=== PATIENT | female | born 1950 | race Caucasian/White ===

== ENCOUNTER 2019-11-07 12:27 | Outpatient (CLI) | payer MEDICARE, OTHER, SELFPAY ==
[2019-11-07 13:55] LABS: Carcinoembryonic Antigen 2.4 ng/mL (0.0-3.0)
== END 2019-11-07 12:28 | disposition home or self-care (01) ==
PROVIDERS: PCP Family Medicine Sports Medicine; Visit Provider Surgery
DX: C18.9 Malignant neoplasm of colon, unspecified (principal)
CPT/HCPCS: 36415; 82378

== ENCOUNTER 2019-11-12 12:52 | Outpatient (CLI) | payer MEDICARE, OTHER, SELFPAY ==
--- NOTE | ~2019-11-12 | MM_ITS ---
EXAMINATION: MM diagnostic kaylen BI w abdifatah HISTORY: Generalized right breast pain TECHNIQUE: ML, MLO and cc 3-D tomosynthesis images of both breasts were performed and synthetic 2-D i mages were generated. CAD analysis was submitted and interpreted. COMPARISON: 03/07/2013ilateral digital screening mammogram BREAST PARENCHYMAL COMPOSITION: The breasts are almost entirely fatty. FINDINGS: No suspicious mass or architectural distortion, malignant calcification, skin thickening or retraction or significant new or developing density is detected. IMPRESSION: 1. No mammographic evidence of malignancy 2. Routine mammographic screening is recommended. BI-RADS Category 1: Negative Reviewed, dictated and finalized at location A.
== END 2019-11-12 12:53 | disposition home or self-care (01) ==
LOC: ANHIMG 12:58
PROVIDERS: PCP Family Medicine Sports Medicine; Visit Provider Family Medicine Sports Medicine
DX: N64.4 Mastodynia (principal)
CPT/HCPCS: 77062; 77066; G0279

== ENCOUNTER 2019-12-17 00:02 | Outpatient (CLI) | payer MEDICARE, OTHER, SELFPAY ==
[2019-12-17 17:13] LABS: SARS-CoV-2 RNA PCR Negative
== END 2019-12-17 00:03 | disposition home or self-care (01) ==
LOC: ANHCOVIDDT 00:02
PROVIDERS: PCP Family Medicine Sports Medicine; Visit Provider Internal Medicine Gastroenterology
DX: Z01.812 Encounter for preprocedural laboratory examination (principal); Z11.59 Encounter for screening for other viral diseases
CPT/HCPCS: 87635; C9803; U0003

== ENCOUNTER 2019-12-19 01:47 | Day surgery (SDC) | payer MEDICARE, OTHER, SELFPAY ==
[2019-12-11 13:50] VITALS: BMI 35.5
[2019-12-19 06:30] VITALS: BP 133/90; PULSE 53; RESP 18; TEMP 36.3; O2SAT 100
[2019-12-19] MEDS: LACTATED RINGERS 1,000 ML 150 ML IV CONT (06:57)
--- NOTE | 2019-12-19 07:27 | WPDANESEPPF ---
Anes - Initial Pre Proc Eval Procedure: Operation Date: 12/19/19 08:00 Proposed Procedures p Screening Colonoscopy - Ace Carmichael MD Date/Time: 12/19/19 07:27 Surgeon: Ace Carmichael MD Pre Op Diagnosis: history of colon cancer Patient Data Age: 69 Gender: F Height: 1.6 m Weight: 94.1 kg Last Vital Signs Temp 36.3 C L 12/19/19 06:30 Pulse 53 L 12/19/19 06:30 Resp 18 12/19/19 06:30 BP 133/90 12/19/19 06:30 Pulse Ox 100 12/19/19 06:30 Allergies Allergy/AdvReac Type Severity Reaction Status Date / Time fenofibrate Allergy Intermediate ITCHING, Verified 12/19/19 06:40 HIVES ciprofloxacin Allergy Unknown Unknown Verified 12/19/19 06:40 Penicillins Allergy Unknown Unknown Verified 12/19/19 06:40 Quinolones Allergy Unknown Unknown Verified 12/19/19 06:40 ibuprofen AdvReac Unknown Nausea and Verified 12/19/19 06:40 Vomiting Home Medications Medication Instructions Recorded Confirmed Type clopidogrel [Plavix] 75 mg PO QPM 07/10/19 12/19/19 History ezetimibe 10 mg PO QPM 07/10/19 12/19/19 History simvastatin 20 mg PO QPM 07/10/19 12/19/19 History aspirin 81 mg PO QPM 07/13/19 12/19/19 History cyanocobalamin (vitamin B-12) 1,000 mcg PO DAILY 07/13/19 12/19/19 History [Vitamin B-12] diphenoxylate-atropine [Lomotil] 1 tablet PO PRN PRN 07/13/19 07/13/19 History furosemide [Lasix] 20 mg PO DAILY 07/13/19 12/19/19 History metoprolol tartrate 12.5 mg PO QPM 07/13/19 12/19/19 History omeprazole 40 mg PO DAILY 07/13/19 12/19/19 History valsartan 40 mg PO QPM 07/13/19 12/19/19 History magnesium oxide 400 mg PO DAILY 7 Days #7 cap 07/15/19 12/19/19 Rx ondansetron HCl 4 mg PO Q8H PRN #20 tablet 07/15/19 Rx Patient hx anesthesia problems: none Family hx anesthesia problems: none [facility] Past Medical History Medical History (Updated 12/18/19 @ 09:04 by Daniel Ng DO) CHF (congestive heart failure) Colon cancer Coronary artery disease CVA (cerebral vascular accident) History of colon cancer History of heart attack 1999 Hyperlipidemia Hypertension TIA (transient ischemic attack) Surgical History Surgical History (Updated 12/18/19 @ 09:04 by Daniel Ng DO) History of appendectomy History of cholecystectomy History of colon resection History of coronary artery stent placement History of hysterectomy Family History Family History (Updated 07/10/19 @ 21:57 by Amy Richey RN) Father Family history of heart disease in male family member before age 55 Cancer, bladder, neck Social History Social History Smoking status: Former smoker Second hand tobacco smoke exposure: No Smoking end date: 06/27/12 Alcohol intake: never Substance use: never Gender identity (if verbalized by the patient): Female Sexual Orientation (if Verbalized by the Patient): Straight or Heterosexual Spiritual care concerns: No Agree to blood products: Yes Anes - Eval Final PreProcedure Day of Procedure 12/19/19 07:27 Patient weight: obese Heart: regular rate and rhythm Lungs: clear to auscultation and normal air movement Airway: Mallampati scale class III Neurological: alert and oriented Last oral intake: >/= 8 hours ASA classification: IV Emergent: no Anesthetic plan: proceed Anesthesia type and monitoring: general GIVS and standard monitoring Informed Consent: The patient's anesthetic plan and its attendant risks and benefits were discussed with the patient/family/POA. Questions were solicited and answers provided to the satisfaction of the patient/family/POA.
--- NOTE | 2019-12-19 08:08 | WPDGICN ---
Assessment and Plan Assessment and plan (1) History of colon cancer: Code(s): Z85.038 - Personal history of other malignant neoplasm of large intestine Status: Acute Assessment and Plan: Patient had a history of carcinoma of the ascending colon requiring right hemicolectomy in August of 2018. She had no lymph nodes noted in the resected specimen. Plan is for surveillance colonoscopy at this time. High-fiber diet advised. Further recommendations after endoscopy. Frequent monitoring of CEA on an annual basis is advised. (2) Diarrhea: Code(s): R19.7 - Diarrhea, unspecified Status: Acute Assessment and Plan: Patient has significant loose stools and diarrhea after resection of portion of her colon. Plan is to continue Metamucil. Lomotil can be used intermittently to control bowel habits. Further recommendations may be given after colonoscopy. GI Consult Note Consult date/time: 12/19/19 08:08 HPI: Hui Dominguez is a 69 year old female Seen in evaluation at the request of Dr. Vera. patient has a history of carcinoma of the colon. This was identified 1 year ago in August of 2018. Patient subsequently had surgery to with right hemicolectomy. Since that time she has had difficulties with diarrhea. She states the initial resection of the colon mass there were no lymph nodes noted in the resected specimen she denies any bleeding but her stools remain loose and has significant urgency after eating. She denies any bleeding. She denies any weight loss. She has tried Lomotil. She has had modest improvement on adding Metamucil supplementation. Her family history is noncontributory. Review of Systems Review of Systems: All systems reviewed & are unremarkable except as noted in HPI and below PMFSH Past Medical History Medical History CHF (congestive heart failure) Colon cancer Coronary artery disease CVA (cerebral vascular accident) History of colon cancer History of heart attack 1999 Hyperlipidemia Hypertension TIA (transient ischemic attack) Surgical History Surgical History History of appendectomy History of cholecystectomy History of colon resection History of coronary artery stent placement History of hysterectomy Family History Family History Father Family history of heart disease in male family member before age 55 Cancer, bladder, neck Social History Social History Smoking status: Former smoker Second hand tobacco smoke exposure: No Smoking end date: 06/27/12 Alcohol intake: never Substance use: never Gender identity (if verbalized by the patient): Female Sexual Orientation (if Verbalized by the Patient): Straight or Heterosexual Spiritual care concerns: No Agree to blood products: Yes Meds Home Medications and Allergies Home Medications Medication Instructions Recorded Confirmed Type clopidogrel [Plavix] 75 mg PO QPM 07/10/19 12/19/19 History ezetimibe 10 mg PO QPM 07/10/19 12/19/19 History simvastatin 20 mg PO QPM 07/10/19 12/19/19 History aspirin 81 mg PO QPM 07/13/19 12/19/19 History cyanocobalamin (vitamin B-12) 1,000 mcg PO DAILY 07/13/19 12/19/19 History [Vitamin B-12] diphenoxylate-atropine [Lomotil] 1 tablet PO PRN PRN 07/13/19 07/13/19 History furosemide [Lasix] 20 mg PO DAILY 07/13/19 12/19/19 History metoprolol tartrate 12.5 mg PO QPM 07/13/19 12/19/19 History omeprazole 40 mg PO DAILY 07/13/19 12/19/19 History valsartan 40 mg PO QPM 07/13/19 12/19/19 History magnesium oxide 400 mg PO DAILY 7 Days #7 cap 07/15/19 12/19/19 Rx ondansetron HCl 4 mg PO Q8H PRN #20 tablet 07/15/19 Rx Allergies Allergy/AdvReac Type Severity Reaction Status Date / Time fenofibrate Allergy Intermediate ITCHING, Verified 12/19/19 06:40 H
--- NOTE | 2019-12-19 08:16 | SUR.OPER ---
SPOUSE, JUAN DIEGO NOTIFIED OF PTS STATUS.
[2019-12-19 08:37] VITALS: BP 82/43; PULSE 47; RESP 16; O2SAT 96
[2019-12-19 08:41] VITALS: BP 85/47; PULSE 51; RESP 16; O2SAT 96
[2019-12-19 08:47] VITALS: BP 105/56; PULSE 54; RESP 16; O2SAT 100
[2019-12-19 08:57] VITALS: BP 133/68; PULSE 52; RESP 16; O2SAT 100
== END 2019-12-19 09:21 | disposition home or self-care (01) ==
PROVIDERS: PCP Family Medicine Sports Medicine; Visit Provider Internal Medicine Gastroenterology
PROC: 0DJD8ZZ Inspection of Lower Intestinal Tract, Via Natural or Artificial Opening Endoscopic (ICD-10-PCS; CPT 45378; principal; 2019-12-19 08:00)
DX: R19.7 Diarrhea, unspecified (principal); D12.5 Benign neoplasm of sigmoid colon; K57.30 Diverticulosis of large intestine without perforation or abscess without bleeding; K64.8 Other hemorrhoids; Z85.038 Personal history of other malignant neoplasm of large intestine; Z90.49 Acquired absence of other specified parts of digestive tract; Z98.0 Intestinal bypass and anastomosis status; I11.0 Hypertensive heart disease with heart failure; I50.9 Heart failure, unspecified; E78.5 Hyperlipidemia, unspecified; I25.2 Old myocardial infarction; I25.10 Atherosclerotic heart disease of native coronary artery without angina pectoris; Z86.73 Personal history of transient ischemic attack (TIA), and cerebral infarction without residual deficits; Z87.891 Personal history of nicotine dependence; Z79.02 Long term (current) use of antithrombotics/antiplatelets; Z79.82 Long term (current) use of aspirin; E66.9 Obesity, unspecified; Z68.36 Body mass index [BMI] 36.0-36.9, adult
CPT/HCPCS: 45385; 88305; J2704; J7120

== ENCOUNTER 2020-01-02 10:14 | Outpatient (CLI) | payer MEDICARE, OTHER, SELFPAY ==
[2020-01-02 10:58] LABS: Basophils Absolute Auto 0.1 K/mm3 (0.0-0.1); Eosinophils Absolute Auto 0.1 K/mm3 (0-0.3); Hemoglobin 12.8 g/dL (12.0-15.0); Immature Granulocyte Absolute 0.02 K/mm3 (0.00-0.031); Immature Granulocyte Percent A 0.3 % (0-0.5); Lymphocytes Absolute Auto 1.81 K/mm3 (0.9-3.2); Mean Corpuscular HGB Conc 32.8 g/dl (32-36); Mean Corpuscular Hemoglobin 31.1 pg (26-34); Mean Corpuscular Volume 94.7 fl (80-100); Mean Platelet Volume 9.6 fl (7.4-10.4); Monocytes Absolute Auto 0.5 K/mm3 (0.1-0.6); Monocytes Percent Auto 7.8 % (2.6-8.5); Neutrophils Absolute Auto 4.4 K/mm3 (1.3-6.7); Neutrophils Percent Auto 62.9 % (45.5-73.1); Platelet Count Result 220 k/mm3 (150-375); Red Blood Count 4.12 M/mm3 (4.2-5.4); Red Cell Distribution Width 12.5 % (11.5-14.5)
[2020-01-02 11:13] LABS: Alanine Aminotransferase 21 U/L (4-35); Albumin Level 4.3 g/dL (3.5-5.1); Alkaline Phosphatase 65 U/L (38-126); Aspartate Amino Transferase 30 U/L (14-36); Bilirubin,Total 0.5 mg/dL (0.2-1.3); Blood Urea Nitrogen 34 mg/dL (7-17); Carbon Dioxide 25 mmol/L (22-30); Chloride 105 mmol/L (98-107); Cholesterol 115 mg/dL (0-200); Estimated Glomerular Filt Rate 49; Glucose 93 mg/dL (65-105); HDL Direct 40 mg/dL; Magnesium 1.7 mg/dL (1.6-2.3); Potassium 3.9 mmol/L (3.4-5.0); Sodium 138 mmol/L (137-145); Triglycerides 156 mg/dL (<150)
[2020-01-02 11:18] LABS: LDL Cholesterol Direct 40 mg/dL
[2020-01-02 11:34] LABS: Creatine Kinase 96 U/L (30-135)
== END 2020-01-02 10:15 | disposition home or self-care (01) ==
PROVIDERS: PCP Family Medicine Sports Medicine; Visit Provider Internal Medicine Cardiovascular Disease
DX: I25.10 Atherosclerotic heart disease of native coronary artery without angina pectoris (principal)
CPT/HCPCS: 36415; 80053; 80061; 82550; 83735; 85025

== ENCOUNTER 2020-04-10 09:37 | Outpatient (CLI) | payer MEDICARE, OTHER, SELFPAY ==
[2020-04-10 10:56] LABS: Alanine Aminotransferase 35 U/L (4-35); Cholesterol 112 mg/dL (0-200); Creatine Kinase 59 U/L (30-135); HDL Direct 35 mg/dL; Triglycerides 141 mg/dL (<150)
[2020-04-10 11:07] LABS: LDL Cholesterol Direct 44 mg/dL
== END 2020-04-10 09:38 | disposition home or self-care (01) ==
LOC: ANHLAB 09:42
PROVIDERS: PCP Family Medicine Sports Medicine; Visit Provider Internal Medicine Cardiovascular Disease
DX: E78.5 Hyperlipidemia, unspecified (principal)
CPT/HCPCS: 36415; 80061; 82550; 84460

== ENCOUNTER 2020-05-02 07:54 | Outpatient (CLI) | payer MEDICARE, OTHER, SELFPAY ==
--- NOTE | ~2020-05-02 | CT_ITS ---
EXAMINATION: CT abdomen pelvis wo/w con EXAM DATE: 05/02/2020 08:59 INDICATION: Gross hematuria TECHNIQUE: Spiral CT of the abdomen and pelvis was performed without contrast. The patient was then injected with small bolus intravenous Omnipaque 350, followed by delay of approximately 10 minutes to allow collecting system to opacify. A post contrast scan abdomen and pelvis was performed during inj ection of remaining contrast. A total of 130 cc intravenous contrast was administered. The dose-nena th product (DLP) for this examination was 2341.91 mGy-cm. The exposure was tailored according to pat ient size (auto mA exposure control), and iterative reconstruction (ASIR) was used as additional dose reduction technique. Comparison is made to prior examination from 07/10/2019. FINDINGS: There is no hydronephrosis or nephrolithiasis. There is a left renal peripelvic cyst in th e midpole of the kidney measuring 4 cm in size. Other smaller renal cysts bilaterally The kidneys en mat symmetrically. There are no suspicious renal lesions. The calyces and opacified portions of u reters are unremarkable, without filling defects or focal suspicious strictures. The bladder is unre markable. The uterus is not identified and has likely been surgically resected. The liver, spleen, adrenal glands and pancreas are unremarkable. There are cholecystectomy clips. T here is no retroperitoneal or pelvic lymphadenopathy. There is mild to moderate scattered arteriosc lerotic disease. There is supraumbilical abdominal wall dehiscence with small bowel bulging inside. Status post cecal resection with intact anastomosis. Small region of mesenteric or omental fat necros is adjacent to this. There is mild to moderate scattered colonic diverticulosis. There is no adjacen t inflammatory change to suggest diverticulitis. The stomach and small bowel are unremarkable. There is expected amount of colonic stool. No free intraperitoneal gas. The heart is normal in size. There are no pericardial or pleural effusions. The lung bases are unremarkable. There are no osteob lastic or osteolytic lesions identified. IMPRESSION: 1. No suspicious genitourinary findings. 2. Supraumbilical abdominal wall dehiscence. 3. Cecal resection, cholecystectomy, hysterectomy. 4. Colonic diverticulosis. Reviewed, dictated and finalized at location G. ANIC
--- NOTE | ~2020-05-02 | XR_ITS ---
EXAMINATION: XR abdomen/kub 1V EXAM DATE: 05/02/2020 08:18 INDICATION: Gross hematuria . TECHNIQUE: Frontal projection(s) of the abdomen for interpretation. Correlation is made to CT urogram same date. FINDINGS: There is expected amount of colonic stool and gas. No small bowel dilation, nonobstructiv e bowel gas pattern. There are no suspicious calcifications identified. There is no organomegaly suspected. The bones are unremarkable. IMPRESSION: Unremarkable abdomen x-ray exam. Reviewed, dictated and finalized at location G. [employer]
[2020-05-02 08:39] LABS: Estimated Glomerular Filt Rate 30
== END 2020-05-02 07:55 | disposition home or self-care (01) ==
PROVIDERS: PCP Family Medicine Sports Medicine; Visit Provider Nurse Practitioner Adult Health
DX: R31.0 Gross hematuria (principal); T81.30XA Disruption of wound, unspecified, initial encounter; Z90.710 Acquired absence of both cervix and uterus; K91.86 Retained cholelithiasis following cholecystectomy; K57.30 Diverticulosis of large intestine without perforation or abscess without bleeding
CPT/HCPCS: 74018; 74178; Q9967

== ENCOUNTER 2020-05-14 09:16 | Outpatient (CLI) | payer MEDICARE, OTHER, SELFPAY ==
[2020-05-14 10:25] LABS: Carcinoembryonic Antigen 2.5 ng/mL (0.0-3.0)
== END 2020-05-14 09:17 | disposition home or self-care (01) ==
PROVIDERS: PCP Family Medicine Sports Medicine; Visit Provider Surgery
DX: Z85.038 Personal history of other malignant neoplasm of large intestine (principal)
CPT/HCPCS: 36415; 82378

== ENCOUNTER 2020-12-01 08:57 | Outpatient (CLI) | payer MEDICARE, OTHER, SELFPAY ==
[2020-12-01 11:22] LABS: Carcinoembryonic Antigen 2.1 ng/mL (0.0-3.0)
== END 2020-12-01 08:58 | disposition home or self-care (01) ==
PROVIDERS: PCP Family Medicine Sports Medicine; Visit Provider Surgery
DX: Z85.038 Personal history of other malignant neoplasm of large intestine (principal)
CPT/HCPCS: 36415; 82378

== ENCOUNTER 2020-12-30 07:35 | Outpatient (CLI) | payer MEDICARE, OTHER, SELFPAY ==
[2020-12-30 08:07] LABS: Basophils Absolute Auto 0.1 K/mm3 (0.0-0.1); Eosinophils Absolute Auto 0.2 K/mm3 (0-0.3); Eosinophils Percent Auto 2.9 % (0-4.4); Hematocrit 37.3 % (37.0-47.0); Hemoglobin 11.4 g/dL (12.0-15.0); Immature Granulocyte Absolute 0.01 K/mm3 (0.00-0.031); Immature Granulocyte Percent A 0.2 % (0-0.5); Lymphocytes Absolute Auto 1.66 K/mm3 (0.9-3.2); Lymphocytes Percent Auto 26.8 % (18.3-44.2); Mean Corpuscular HGB Conc 30.6 g/dl (32-36); Mean Corpuscular Hemoglobin 28.5 pg (26-34); Mean Corpuscular Volume 93.3 fl (80-100); Mean Platelet Volume 9.8 fl (7.4-10.4); Monocytes Absolute Auto 0.6 K/mm3 (0.1-0.6); Neutrophils Absolute Auto 3.7 K/mm3 (1.3-6.7); Neutrophils Percent Auto 59.1 % (45.5-73.1); Platelet Count Result 217 k/mm3 (150-375); Red Cell Distribution Width 13.1 % (11.5-14.5); White Blood Count 6.2 K/mm3 (4.5-10.0)
[2020-12-30 08:18] LABS: Alanine Aminotransferase 17 U/L (4-35); Albumin Level 4.2 g/dL (3.5-5.1); Alkaline Phosphatase 69 U/L (38-126); Anion Gap 10 mmol/L (8-16); Aspartate Amino Transferase 31 U/L (14-36); Bilirubin,Total 0.3 mg/dL (0.2-1.3); Blood Urea Nitrogen 31 mg/dL (7-17); Calcium 10.3 mg/dL (8.4-10.2); Carbon Dioxide 25 mmol/L (22-30); Chloride 108 mmol/L (98-107); Cholesterol 128 mg/dL (0-200); Creatine Kinase 105 U/L (30-135); Estimated Glomerular Filt Rate 40; Glucose 93 mg/dL (65-105); HDL Direct 42 mg/dL; Potassium 4.4 mmol/L (3.4-5.0); Sodium 143 mmol/L (137-145); Triglycerides 167 mg/dL (<150)
[2020-12-30 08:29] LABS: LDL Cholesterol Direct 42 mg/dL
[2020-12-30 09:29] LABS: Folic Acid > 20.0 ng/mL (2.76->20)
== END 2020-12-30 07:36 | disposition home or self-care (01) ==
PROVIDERS: PCP Family Medicine Sports Medicine; Visit Provider Internal Medicine Cardiovascular Disease
DX: E78.5 Hyperlipidemia, unspecified (principal); I10 Essential (primary) hypertension
CPT/HCPCS: 36415; 80053; 80061; 82550; 82607; 82746; 84443; 85025

== ENCOUNTER 2020-12-31 12:42 | Outpatient (CLI) | payer MEDICARE, OTHER, SELFPAY ==
--- NOTE | ~2020-12-31 | MM_ITS ---
EXAMINATION: MM screening kaylen BI w abdifatah HISTORY: Screening mammogram, family history of breast cancer in her sister. TECHNIQUE: Craniocaudal and mediolateral oblique 3-D tomosynthesis images were obtained and synthetic 2-D images were generated. CAD analysis was submitted and interpreted. COMPARISON: 11/12/2019, 03/07/2013, 02/04/2012 BREAST PARENCHYMAL COMPOSITION: The breasts are almost entirely fatty. FINDINGS: There is no evidence of suspicious mass, calcification, or architectural distortion to sugg est malignancy in either breast. There has been no suspicious interval change. IMPRESSION: 1. No mammographic evidence of malignancy. 2. Recommend routine screening mammography in one year. BI-RADS Category 1: Negative Reviewed, dictated and finalized at location A.
== END 2020-12-31 12:43 | disposition home or self-care (01) ==
LOC: ANHIMG 12:44
PROVIDERS: PCP Family Medicine Sports Medicine; Visit Provider Family Medicine Sports Medicine
DX: Z12.31 Encounter for screening mammogram for malignant neoplasm of breast (principal)
CPT/HCPCS: 77063; 77067

== ENCOUNTER 2021-01-07 14:38 | Outpatient (CLI) | payer MEDICARE, OTHER, SELFPAY ==
[2021-01-07 18:30] LABS: Iron 83 ug/dL (37-170)
[2021-01-07 18:41] LABS: Percent Iron Saturation 20 % (20-50)
[2021-01-07 19:28] LABS: Hemoglobin A1C 5.1 % (<5.7)
== END 2021-01-07 14:39 | disposition home or self-care (01) ==
PROVIDERS: PCP Family Medicine Sports Medicine
DX: R00.1 Bradycardia, unspecified (principal); R00.2 Palpitations; R06.02 Shortness of breath
CPT/HCPCS: 36415; 82728; 83036; 83540; 83550

== ENCOUNTER 2021-02-04 13:02 | Outpatient (CLI) | payer MEDICARE, OTHER, SELFPAY ==
--- NOTE | ~2021-02-04 | CT_ITS ---
EXAMINATION: CT abdomen pelvis wo/w con DATE: 02/04/2021 13:52 INDICATION: Bilateral renal cysts TECHNIQUE: Computed tomography (CT) of the abdomen and pelvis was performed without intravenous contr ast. Automated exposure control and iterative reconstruction technique were employed. Exam dose: 237 3.95 mGy-cm total exam DLP. COMPARISON: 05/02/2020 FINDINGS: Minimal discoid atelectasis is scoliosis and. Normal heart size. Coronary artery calcification. No pericardial or pleural effusion. Small sliding hiatal hernia. Status post cholecystectomy. The liver, spleen and pancreas are unremarkable. Normal morphology of the adrenal glands. Multiple bilateral renal cysts, the largest on the left measuring up to 4.7 cm, the largest on the ri ght 2.1 cm. No urinary tract calculus or hydroureteronephrosis. Abdominal and iliac arterial calcifications without evidence of aneurysm. No intraperitoneal or retro peritoneal or pelvic mass lesion or adenopathy or ascites. The urinary bladder is unremarkable. Diverticulosis of the sigmoid and descending colon; no CT evidence of diverticulitis. There is resection of the right colon. No bowel obstruction or intraperitoneal free air. Status post hysterectomy. There is a wide large supraumbilical ventral abdominal wall hernia containing nonstrangulated nonobst ructed small bowel and fat. Grade 1 anterolisthesis L4-5 due to degenerative change at the apophyseal joints. No suspicious osteolytic or osteoblastic lesions are noted. IMPRESSION: Status post cholecystectomy Status post hysterectomy Small sliding hiatal hernia Diverticulosis of the left colon; no CT evidence of diverticulitis Status post right colon resection Wide large supraumbilical ventral abdominal wall hernia containing nonstrangulated nonobstructed smal l bowel Reviewed, dictated and finalized at Location A. Reviewed, dictated and finalized at location A. IMPRESSION: Status post cholecystectomy Status post hysterectomy Small sliding hiatal hernia Diverticulosis of the left colon; no CT evidence of diverticulitis Status post right colon resection Wide large supraumbilical ventral abdominal wall hernia containing nonstrangula daniel nonobstructed small bowel
--- NOTE | ~2021-02-04 | XR_ITS ---
EXAMINATION: XR abdomen/kub 1V INDICATION: Cysts of the kidneys TECHNIQUE: Supine views of the abdomen were obtained on 2 radiographs. COMPARISON: 05/02/[address] from today FINDINGS: No urolithiasis is identified. A moderate volume of colonic stool is present. Cholecystecto my clips are present in the right upper quadrant. There is calcified atherosclerosis. Changes of righ t hemicolectomy are noted. IMPRESSION: 1. No urolithiasis identified. Reviewed, dictated and finalized at location B.
[2021-02-04 13:41] LABS: Estimated Glomerular Filt Rate 44
== END 2021-02-04 13:03 | disposition home or self-care (01) ==
PROVIDERS: PCP Family Medicine Sports Medicine; Visit Provider Nurse Practitioner Adult Health
DX: N28.1 Cyst of kidney, acquired (principal); K44.9 Diaphragmatic hernia without obstruction or gangrene; K57.30 Diverticulosis of large intestine without perforation or abscess without bleeding; K43.9 Ventral hernia without obstruction or gangrene
CPT/HCPCS: 74018; 74178; Q9967

== ENCOUNTER 2021-02-17 13:42 | Outpatient (CLI) | payer MEDICARE, OTHER, SELFPAY ==
[2021-02-17 14:52] LABS: Uric Acid 10.3 mg/dL (2.5-7.5)
== END 2021-02-17 13:43 | disposition home or self-care (01) ==
PROVIDERS: PCP Family Medicine Sports Medicine; Visit Provider Podiatrist Foot & Ankle Surgery
DX: M1A.0721 Idiopathic chronic gout, left ankle and foot, with tophus (tophi) (principal)
CPT/HCPCS: 36415; 84550

== ENCOUNTER 2021-05-07 11:18 | Outpatient (CLI) | payer MEDICARE, OTHER, SELFPAY ==
[2021-05-07 12:35] LABS: Uric Acid 5.7 mg/dL (2.5-7.5)
== END 2021-05-07 11:19 | disposition home or self-care (01) ==
LOC: ANHLAB 11:22
PROVIDERS: PCP Family Medicine Sports Medicine; Visit Provider Podiatrist Foot & Ankle Surgery
DX: M10.072 Idiopathic gout, left ankle and foot (principal)
CPT/HCPCS: 36415; 84550

== ENCOUNTER 2021-10-16 08:21 | Outpatient (CLI) | payer MEDICARE, OTHER, SELFPAY ==
[2021-10-16 09:00] LABS: Hematocrit 36.5 % (37.0-47.0); Hemoglobin 11.3 g/dL (12.0-15.0); Mean Corpuscular Hemoglobin 30.5 pg (26-34); Mean Corpuscular Volume 98.4 fl (80-100); Mean Platelet Volume 9.9 fl (7.4-10.4); Platelet Count Result 245 k/mm3 (150-375); Red Blood Count 3.71 M/mm3 (4.2-5.4); White Blood Count 7.1 K/mm3 (4.5-10.0)
[2021-10-16 09:04] LABS: Add Urine Microscopic? YES; Appearance Urine Cloudy (Clear); Bacteria Urine Trace /hpf; Bilirubin Urine Negative (Negative); Blood Urine Negative (Negative); Color Urine Yellow (Yellow); Glucose Urine UA Negative (Negative); Ketones Urine Negative (Negative); Leukocyte Esterase Ur 2+ LEU/UL (NEGATIVE); Mucus Urine Rare /lpf; Nitrate Urine Negative (Negative); Protein Urine Negative (Negative); RBC Urine 0-2 /hpf (0-2); Specific Grav Ur 1.011 (1.001-1.035); Squamous Epithelial Cell Urine Rare /hpf (Few); Urobilinogen Urine Negative mg/dL (<2.0); WBC Urine 31-50 /hpf (0-3)
[2021-10-16 09:09] LABS: Cholesterol 130 mg/dL (0-200); HDL Direct 35 mg/dL; Triglycerides 157 mg/dL (<150)
[2021-10-16 09:12] LABS: Alanine Aminotransferase 14 U/L (4-35); Albumin Level 4.1 g/dL (3.5-5.1); Alkaline Phosphatase 83 U/L (38-126); Anion Gap 9 mmol/L (8-16); Aspartate Amino Transferase 33 U/L (14-36); Bilirubin,Total 0.4 mg/dL (0.2-1.3); Blood Urea Nitrogen 36 mg/dL (7-17); Calcium 10.1 mg/dL (8.4-10.2); Carbon Dioxide 24 mmol/L (22-30); Chloride 107 mmol/L (98-107); Estimated Glomerular Filt Rate 32; Glucose 96 mg/dL (65-110); Potassium 4.3 mmol/L (3.4-5.0); Sodium 140 mmol/L (137-145)
[2021-10-16 09:21] LABS: LDL Cholesterol Direct 49 mg/dL
[2021-10-16 10:19] LABS: Folic Acid > 20.0 ng/mL (2.76->20); Vitamin B12 > 1000.0 pg/mL (239-931)
[2021-10-16 11:16] LABS: IFOB Positive Control Positive; Immunochemical Fecal Occult Bl Positive (N)
[2021-10-16 11:50] LABS: Toxigenic C. Diff POSITIVE (NEGATIVE)
== END 2021-10-16 08:22 | disposition home or self-care (01) ==
PROVIDERS: PCP Family Medicine Sports Medicine; Visit Provider Nurse Practitioner Family
DX: R19.7 Diarrhea, unspecified (principal); Z87.440 Personal history of urinary (tract) infections; E78.2 Mixed hyperlipidemia; R53.83 Other fatigue; I10 Essential (primary) hypertension
CPT/HCPCS: 36415; 80053; 80061; 81001; 82274; 82607; 82746; 84443; 85027; 87045; 87177; 87209; 87427; 87493

== ENCOUNTER 2021-10-28 09:20 | Outpatient (CLI) | payer MEDICARE, OTHER, SELFPAY ==
--- NOTE | ~2021-10-28 | CT_ITS ---
EXAMINATION: CT abdomen pelvis w con INDICATION: Diarrhea and abdominal pain TECHNIQUE: Computed tomographic images of the abdomen and pelvis were obtained after the administrati on of 100 cc of Omnipaque 350 intravenous contrast. The dose-length product (DLP) was 960.79 mGy-cm. Automated exposure control and iterative reconstruction technique were employed. COMPARISON: 02/04/2021 FINDINGS: There is mild emphysema of the visualized lung bases. The heart size is normal. The liver, spleen, and adrenal glands are normal. The gallbladder is surgically absent. There is mild enlargemen t of the common bile duct and central intrahepatic ducts which is likely due to post cholecystectomy state. There is a 1.8 cm cystic lesion in the body of the pancreas (previously 1.5 cm) which does not demonstrate communication with the main pancreatic duct. Cysts of the kidneys measure up to 4.6 cm o n the left. There is calcified atherosclerosis of the aorta and many of the other arteries. No pathol ogically enlarged abdominal or pelvic lymph nodes are identified. There is no free intraperitoneal ga s or evidence of bowel obstruction. Colonic diverticulosis is present without evidence of diverticuli tis. There appear to be changes of right hemicolectomy. There is a large midline ventral hernia conta ining nonobstructed small bowel and transverse colon. There is moderate lumbar spondylosis. IMPRESSION: 1. No CT correlate for the patient's symptoms. 2. Enlarging cystic lesion in the body of the pancreas measuring up to 1.8 cm. The differential diagn osis includes pseudocyst, intraductal papillary mucinous neoplasm (IPMN), mucinous cystic neoplasm (M CN), and the less common serous cystadenoma and neuroendocrine tumor. Correlate for history of pancre atitis. Follow-up pancreas protocol CT or MRI in six months is recommended. 3. Large ventral hernia containing nonobstructed large and small bowel. Reviewed, dictated and finalized at location A. IMPRESSION: 1. No CT correlate for the patient's symptoms. 2. Enlarging cystic lesion in the body of the pancreas measuring up to 1.8 cm. The differential diagnosis includes pseudocyst, intraductal papillary mucinous neoplasm (IPMN), mucinous cystic neoplasm (MCN), and the less common serous cys tadenoma and neuroendocrine tumor. Correlate for history of pancreatitis. Follo w-up pancreas protocol CT or MRI in six months is recommended. 3. Large ventral hernia containing nonobstructed large and small bowel.
== END 2021-10-28 09:21 | disposition home or self-care (01) ==
PROVIDERS: PCP Family Medicine Sports Medicine; Visit Provider Nurse Practitioner Family
DX: R19.7 Diarrhea, unspecified (principal); R10.9 Unspecified abdominal pain; R11.2 Nausea with vomiting, unspecified; K43.9 Ventral hernia without obstruction or gangrene
CPT/HCPCS: 74177; Q9967

== ENCOUNTER 2021-11-06 07:00 | Outpatient (CLI) | payer MEDICARE, OTHER, SELFPAY ==
[2021-11-06 10:35] LABS: Toxigenic C. Diff POSITIVE (NEGATIVE)
== END 2021-11-06 07:01 | disposition home or self-care (01) ==
LOC: ANHLAB 07:03
PROVIDERS: PCP Family Medicine Sports Medicine; Visit Provider Nurse Practitioner Family
DX: A49.8 Other bacterial infections of unspecified site (principal)
CPT/HCPCS: 87493

== ENCOUNTER 2021-12-15 15:26 | Outpatient (CLI) | payer MEDICARE, OTHER, SELFPAY ==
--- NOTE | ~2021-12-15 | CT_ITS ---
EXAMINATION: CT abdomen pelvis wo/w con DATE: 12/15/2021 16:38 INDICATION: Gross hematuria. TECHNIQUE: Computed tomography (CT) of the abdomen and pelvis was performed without and with intraven ous contrast using a total of 130 mL Omnipaque 300 intravenous contrast with a double-bolus technique for simultaneous opacification of the renal parenchyma and renal collecting system. Automated exposu re control and iterative reconstruction technique were employed. The dose-length product was 2008.25 mGy-cm. COMPARISON: CT abdomen and pelvis 10/28/2021 FINDINGS: The visualized portions of the lung bases demonstrate mild atelectasis. No pleural effusion. The hear t size is normal. No pericardial effusion. The liver is normal. There are changes of cholecystectomy. The spleen, pancreas, and adrenal glands are normal. There is cortical thinning of the kidneys. Ther e are cysts in the kidneys measuring up to 4.5 cm on the left. There is no urolithiasis. There are ar eas of papillary necrosis in the kidneys bilaterally. There are multiple filling defects in left kidn ey calyces measuring up to 8 mm. The distal left ureter is not well opacified, but is normal. There i s gas in the bladder wall and lumen. There is a ventral hernia containing nonobstructed transverse co kelli and small bowel. There is diverticulosis of the colon without evidence of diverticulitis. There a re changes of right hemicolectomy. There are no pathologically enlarged lymph nodes. There is no free intraperitoneal fluid. There is moderate thoracolumbar spondylosis. IMPRESSION: 1. Emphysematous cystitis. 2. Filling defects in calyces in left kidney measuring up to 8 mm, which may be sloughed papillae or blood clots. 3. 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 4. Ventral hernia containing nonobstructed transverse colon and small bowel. Reviewed, dictated and finalized at location A.
--- NOTE | ~2021-12-15 | XR_ITS ---
EXAMINATION: XR abdomen/kub 1V DATE: 12/15/2021 15:55 INDICATION: Gross hematuria TECHNIQUE: A supine view of the abdomen on 2 radiographs was obtained. COMPARISON: CT dated 10/28/2021 FINDINGS: Cholecystectomy clips in right upper quadrant. Atherosclerotic calcification along the right iliac ar teries. Bowel anastomotic suture line in the right lower quadrant. Normal bowel gas pattern. No suspi cious calcifications to suggest urolithiasis. 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 Severe bilateral facet osteoarthritis at L4-L5. IMPRESSION: 1. No evident urolithiasis. Reviewed, dictated and finalized at location B. IMPRESSION: 1. No evident urolithiasis.
[2021-12-15 16:07] LABS: Estimated Glomerular Filt Rate 30
== END 2021-12-15 15:27 | disposition home or self-care (01) ==
PROVIDERS: PCP Family Medicine Sports Medicine; Visit Provider Nurse Practitioner Adult Health
DX: R31.0 Gross hematuria (principal); K43.9 Ventral hernia without obstruction or gangrene
CPT/HCPCS: 74018; 74178; Q9967

== ENCOUNTER 2021-12-17 11:37 | Inpatient (IN) | payer MEDICARE, OTHER, SELFPAY ==
--- NOTE | ~2021-12-17 | CT_ITS ---
EXAMINATION: CT abdomen pelvis wo con DATE: 12/19/2021 12:08 INDICATION: emphysematous cystitis TECHNIQUE: Computed tomography (CT) of the abdomen and pelvis was performed without intravenous contr ast. Automated exposure control and iterative reconstruction technique were employed. The dose-length product was 1352.44 mGy-cm. COMPARISON: 12/15/2021. FINDINGS: Lower thorax: Unremarkable Liver: Normal. Biliary/Gallbladder: Gallbladder is absent. No bile duct dilation. Pancreas: No mass or duct dilation. Spleen: Normal. Adrenals:No mass. Kidneys: Multiple bilateral renal cysts. Bilateral atrophy. Bilateral papillary necrosis and left laney yceal filling defects are less well visualized given technique. No obstructing stone or hydronephrosi s. GI tract: No small or large bowel dilation. Appendix not visualized. Uncomplicated appearing cecal an astomosis. Diverticulosis without diverticulitis. Mesentery/Peritoneum: No ascites, mass, or free air. Retroperitoneum: No mass. Atherosclerotic abdominal aortic and/or arterial calcifications. Pelvis: Minimal residual gas present within the wall of the bladder which is decompressed by a Mcpherson. Mild surrounding inflammatory change. Soft Tissues: Uncomplicated upper abdominal ventral hernia containing fat, large bowel, and small bow el. Bones: No acute osseous finding. IMPRESSION: Resolving emphysematous cystitis. No new acute abdominopelvic process detected. No other significant interval change. Reviewed, dictated and finalized at location K.
[2021-12-17 12:00] VITALS: BP 122/68; PULSE 64; RESP 18; TEMP 35.9; O2SAT 100
[2021-12-17 12:05] LABS: Basophils Percent Auto 0.3 % (0.2-1.2); Eosinophils Percent Auto 0.1 % (0-4.4); Hematocrit 32.1 % (37.0-47.0); Hemoglobin 10.2 g/dL (12.0-15.0); Immature Granulocyte Absolute 0.03 K/mm3 (0.00-0.031); Immature Granulocyte Percent A 0.4 % (0-0.5); Lymphocytes Absolute Auto 1.15 K/mm3 (0.9-3.2); Lymphocytes Percent Auto 14.5 % (18.3-44.2); Mean Corpuscular HGB Conc 31.8 g/dl (32-36); Mean Corpuscular Hemoglobin 30.7 pg (26-34); Mean Corpuscular Volume 96.7 fl (80-100); Mean Platelet Volume 9.9 fl (7.4-10.4); Monocytes Absolute Auto 0.5 K/mm3 (0.1-0.6); Monocytes Percent Auto 5.8 % (2.6-8.5); Neutrophils Absolute Auto 6.3 K/mm3 (1.3-6.7); Neutrophils Percent Auto 78.9 % (45.5-73.1); Platelet Count Result 241 k/mm3 (150-375); Red Blood Count 3.32 M/mm3 (4.2-5.4); Red Cell Distribution Width 14.8 % (11.5-14.5); White Blood Count 7.9 K/mm3 (4.5-10.0)
[2021-12-17 12:16] LABS: Anion Gap 9 mmol/L (8-16); Blood Urea Nitrogen 41 mg/dL (7-17); Calcium 10.3 mg/dL (8.4-10.2); Carbon Dioxide 20 mmol/L (22-30); Chloride 110 mmol/L (98-107); Estimated Glomerular Filt Rate 37; Glucose 101 mg/dL (65-110); Potassium 4.6 mmol/L (3.4-5.0); Sodium 139 mmol/L (137-145)
--- NOTE | 2021-12-17 12:44 | WPDURCON ---
Assessment and Plan Assessment and plan (1) Emphysematous cystitis: Code(s): N30.80 - Other cystitis without hematuria Status: Acute Assessment and Plan: Admit to medicine for treatment with Ertapenem as it is sensitive to both strands of bacteria on culture which has been placed on her chart for review. She has failed Nitrofurantoin and Monurol PO. Place king catheter for maximum drainage per recommendation of Dr. Bermeo. Repeat CT scan with and without contrast in 2 days to confirm improvement. (2) Necrosis of the renal papillae: Code(s): N17.2 - Acute kidney failure with medullary necrosis Status: Acute (3) E coli infection: Code(s): A49.8 - Other bacterial infections of unspecified site Status: Acute (4) Klebsiella infection: Code(s): A49.8 - Other bacterial infections of unspecified site Status: Acute Urology Consult Note HPI Date Seen: 12/17/21 Time Seen: 12:44 Requesting Physician: Mary Jo Yadav DO Primary Care Provider: Ramos VeraMD Consult Narrative Reason for consult: Narrative: Hui Dominguez is a 71 year old female who we requested a direct admit for today d/t her CT scan results that were completed yesterday with a known complicated UTI and gross hematuria. She was seen in our office on 11/11/21 initially for this problem by me with symptoms of dysuria and gross hematuria. Since she had recently been hospitalized and treated for c-diff we elected to not treat for a UTI empirically until her culture results came back. Her UA did show elevated leukocytes and RBC's, but her culture was negative. D/t ongoing symptoms I ordered a CT scan, a urine microgen and urine cytology. The urine microgen grew E-Coli and Klebsiella sensitive to Nitrofurantoin, in late October which I treated her with for two weeks to f/u afterward to re-assess. I saw her then on 12/10/21 and she had not yet gotten her CT, therefore I encourged her to do so as she wasn't improved and we then started a course of Monurol for [address]. [address] was completed on 12/16/21 at [facility] and showed emphysematous cystitis, filling defects in calyces in left kidney measuring up to 8 mm, which may be sloughed papillae or blood clots, and papillary necrosis in the kidneys bilaterally. I reveiwed her CT this morning with Dr. Bermeo and he recommended hospital admission with king catheter for maximum drainage and IV antibiotics. Review of Systems Cardiovascular: Cardiovascular: Denies chest pain Respiratory: Respiratory: Reports no additional respiratory complaints Gastrointestinal: Gastrointestinal: Denies abdominal pain, Denies nausea and Denies hematemesis Genitourinary: Genitourinary: Denies hematuria, Reports nocturia, Reports dysuria, Denies flank pain and Reports urinary urgency [facility] Past Medical History Medical History Abdominal pain CHF (congestive heart failure) Colon cancer Coronary artery disease CVA (cerebral vascular accident) History of colon cancer History of heart attack 1999 Hyperlipidemia Hypertension Nausea and vomiting TIA (transient ischemic attack) Surgical History Surgical History History of appendectomy History of cholecystectomy History of colon resection History of coronary artery stent placement History of hysterectomy Family History Family History Father Family history of heart disease in male family member before age 55 Cancer, bladder, neck Social History Social History Smoking status: Never smoker Second hand tobacco smoke exposure: No Smoking end date: 06/27/12 Alcohol intake: never Substance use: never Gender identity (if verbalized by the patient): Female Sexual Orientation (if Verbalized by the Patient): Str
[2021-12-17 16:00] VITALS: BP 159/63; PULSE 67; RESP 18; TEMP 35.9; O2SAT 100
--- NOTE | 2021-12-17 16:36 | PM.IMHP ---
H&P: HPI History of Present Illness Date/Time: 12/17/21 16:36 Chief Complaint: UTI Narrative: 71-year-old female with past medical history significant for GA requiring PCI in 1999, colon cancer, heart disease, hyperlipidemia and hypertension as well as C diff infection several months ago and a long history of recurrent, complicated UTIs is being directly admitted to the hospital from the urologist's office for treatment of her emphysematous cystitis found on CT scan. Urology had been treating her with Macrobid for several weeks without resolution of her symptoms. She did receive a 3 day course of Monurol. At this time, Urology would like her admitted for IV antibiotics and placement of a Mcpherson catheter for drainage and decompression of her bladder. The patient denies any fevers or chills. No nausea vomiting diarrhea. No chest pain or shortness of breath. Urology consultation is noted. Of note, the patient had C diff about 4 months ago after being treated with antibiotics for her recurrent UTIs. She is now on oral vancomycin every time she requires antibiotics as well as Florastor capsules that she takes daily. Due to her distant history of colon cancer requiring partial colectomy she does have chronic diarrhea being treated with colestipol. She takes Ambien nightly for chronic insomnia and is on aspirin Plavix since having her stent in 1999. Review of Systems Review of Systems: Twelve point review of systems was reviewed and is negative except as noted in the HPI [facility] Past Medical History Medical History Abdominal pain CHF (congestive heart failure) Colon cancer Coronary artery disease CVA (cerebral vascular accident) History of colon cancer History of heart attack 1999 Hyperlipidemia Hypertension Nausea and vomiting TIA (transient ischemic attack) Surgical History Surgical History History of appendectomy History of cholecystectomy History of colon resection History of coronary artery stent placement History of hysterectomy Family History Family History Father Family history of heart disease in male family member before age 55 Cancer, bladder, neck Social History Social History Smoking status: Never smoker Second hand tobacco smoke exposure: No Smoking end date: 06/27/12 Alcohol intake: never Substance use: never Gender identity (if verbalized by the patient): Female Sexual Orientation (if Verbalized by the Patient): Straight or Heterosexual Spiritual care concerns: No Agree to blood products: Yes Meds Home Medications and Allergies Home Medications Medication Instructions Recorded Confirmed Type clopidogrel 75 mg tablet (Plavix) 75 mg PO QPM 07/10/19 12/17/21 History aspirin 81 mg chewable tablet 81 mg PO QPM 07/13/19 12/17/21 History cyanocobalamin (vitamin B-12) 1,000 mcg PO DAILY 07/13/19 12/17/21 History 1,000 mcg tablet (Vitamin B-12) furosemide 20 mg tablet (Lasix) 20 mg PO DAILY 07/13/19 12/17/21 History metoprolol tartrate 25 mg tablet 12.5 mg PO QPM 07/13/19 12/17/21 History omeprazole 40 mg capsule,delayed 40 mg PO DAILY 07/13/19 12/17/21 History release valsartan 40 mg tablet 40 mg PO QPM 07/13/19 12/17/21 History vancomycin 125 mg capsule 125 mg PO DIRECTED #84 caps 11/06/21 12/17/21 Rx allopurinol 300 mg tablet 300 mg PO DAILY 12/17/21 12/17/21 History colestipol 1 gram tablet (Colestid) 1 g PO DAILY PRN Loose Stool 12/17/21 12/17/21 History Allergies Allergy/AdvReac Type Severity Reaction Status Date / Time fenofibrate Allergy Intermediate ITCHING, Verified 10/23/21 12:56 HIVES ciprofloxacin Allergy Unknown Unknown Verified 10/23/21 12:56 Penicillins Allergy Unknown Unknown Verified 10/23/21 12:56 Quinolones Allergy Unknown Unknown V
[2021-12-17 20:00] VITALS: BP 150/81; PULSE 66; RESP 16; TEMP 35.8; O2SAT 99
[2021-12-17] MEDS: VANCOMYCIN ORAL 125 MG/2.5 ML SYRUP PO ×2 (20:13→23:10)
[2021-12-17] MEDS: ZOLPIDEM TARTRATE (*CRX) 5 MG TABLET PO (23:10)
[2021-12-17 23:12] VITALS: BMI 36.1
[2021-12-18] MEDS: VANCOMYCIN ORAL 125 MG/2.5 ML SYRUP PO ×4 (05:14→23:01)
[2021-12-18 06:00] VITALS: BP 155/80; PULSE 71; RESP 18; TEMP 36.2; O2SAT 100
[2021-12-18 08:00] VITALS: PULSE 71; RESP 18; O2SAT 100
[2021-12-18 08:46] LABS: Basophils Absolute Auto 0.1 K/mm3 (0.0-0.1); Basophils Percent Auto 0.9 % (0.2-1.2); Eosinophils Absolute Auto 0.1 K/mm3 (0-0.3); Eosinophils Percent Auto 1.9 % (0-4.4); Hematocrit 35.3 % (37.0-47.0); Hemoglobin 10.6 g/dL (12.0-15.0); Immature Granulocyte Absolute 0.01 K/mm3 (0.00-0.031); Immature Granulocyte Percent A 0.2 % (0-0.5); Lymphocytes Absolute Auto 1.73 K/mm3 (0.9-3.2); Lymphocytes Percent Auto 27.2 % (18.3-44.2); Mean Corpuscular Hemoglobin 29.8 pg (26-34); Mean Corpuscular Volume 99.2 fl (80-100); Monocytes Absolute Auto 0.5 K/mm3 (0.1-0.6); Monocytes Percent Auto 7.7 % (2.6-8.5); Neutrophils Percent Auto 62.1 % (45.5-73.1); Platelet Count Result 221 k/mm3 (150-375); Red Blood Count 3.56 M/mm3 (4.2-5.4); Red Cell Distribution Width 14.9 % (11.5-14.5); White Blood Count 6.4 K/mm3 (4.5-10.0)
[2021-12-18 08:58] LABS: Alanine Aminotransferase 19 U/L (6-35); Albumin Level 4.4 g/dL (3.5-5.1); Alkaline Phosphatase 86 U/L (38-126); Anion Gap 7 mmol/L (8-16); Aspartate Amino Transferase 38 U/L (14-36); Bilirubin,Total 0.5 mg/dL (0.2-1.3); Blood Urea Nitrogen 36 mg/dL (7-17); Calcium 10.2 mg/dL (8.4-10.2); Carbon Dioxide 21 mmol/L (22-30); Chloride 111 mmol/L (98-107); Estimated CRCL calculation 41 ml/min; Estimated Glomerular Filt Rate 44; Glucose 83 mg/dL (65-110); Potassium 4.3 mmol/L (3.4-5.0); Sodium 139 mmol/L (137-145)
[2021-12-18] MEDS: CYANOCOBALAMIN 1,000 MCG TABLET 1000 MCG PO (10:04)
[2021-12-18] MEDS: allopurinoL 300 MG TABLET PO (10:04)
[2021-12-18] MEDS: FUROSEMIDE 20 MG TABLET PO (10:04)
[2021-12-18] MEDS: COLESTIPOL HCL 1 GM TABLET PO (10:04)
[2021-12-18] MEDS: SACCHAROMYCES BOULARDII 250 MG CAPSULE PO ×2 (10:05→18:31)
[2021-12-18] MEDS: PANTOPRAZOLE 40 MG TABLET PO ×2 (10:05→20:43)
[2021-12-18 14:00] VITALS: BP 130/60; PULSE 80; RESP 18; TEMP 36.1; O2SAT 98
--- NOTE | 2021-12-18 16:35 | PM.IMPN ---
Progress Note: A&P Assessment and Plan (1) Emphysematous cystitis: Code(s): N30.80 - Other cystitis without hematuria Status: Acute Assessment and Plan: Mcpherson for decompression, appreciate Urology consultation, Primaxin started December 17, 2021 (2) Coronary artery disease: Qualifiers: Coronary Disease-Associated Artery/Lesion type: unspecified vessel or lesion type [place] vs. transplanted heart: [place] heart Associated angina: without angina Qualified Code(s): I25.10 - Atherosclerotic heart disease of [place] coronary artery without angina pectoris Code(s): I25.10 - Atherosclerotic heart disease of [place] coronary artery without angina pectoris Status: Chronic Assessment and Plan: Plavix being held because patient has an outpatient pancreatic cyst biopsy next week, continue aspirin, she likely will not need to restart Plavix as I do not think she continues to need dual anti-platelet therapy this far out from her PCI (3) History of colon resection: Code(s): Z90.49 - Acquired absence of other specified parts of digestive tract Status: Acute Assessment and Plan: History of partial colectomy with chronic diarrhea, being treated with colestipol (4) Necrosis of the renal papillae: Code(s): N17.2 - Acute kidney failure with medullary necrosis Status: Acute Assessment and Plan: Resolving, continue antibiotics, defer further management to Urology, hold off on Nephrology consultation at this time (5) Insomnia: Code(s): G47.00 - Insomnia, unspecified Status: Acute Assessment and Plan: Ambien as needed per patient request Plan With her history of C diff, we will continue the oral vancomycin while she is on antibiotics as well as Florastor capsules Subjective Date/time seen: 12/18/21 16:35 Interval history: Patient resting comfortably visiting with family members. No overnight events noted. No chest pain or shortness of breath. No nausea, vomiting or diarrhea. No fevers or chills. Review of Systems Review of Systems: 12 point review of systems was assessed and was negative except as noted in the HPI Exam Narrative: General: Patient resting comfortably in bed, no acute distress HEENT: Atraumatic, normocephalic, mucous membranes moist CV: Regular rate and rhythm, S1, S2, no murmurs rubs or gallops noted Lungs: Clear to auscultation bilaterally, no rales or crackles noted, no wheezes, good air entry Abdomen: Soft, nontender, nondistended Extremities: Normal to inspection, no edema noted Skin: No rashes noted, no lesions or wounds seen Psych: Euthymic, normal affect Objective Data Vital Signs Vital Signs: Vital Signs - 24 hr 12/17/21 20:00 12/17/21 20:00 12/18/21 06:00 Temperature 96.5 F L 97.1 F L Pulse Rate 66 71 Respiratory Rate 16 18 Blood Pressure 150/81 H 155/80 H Pulse Oximetry 99 100 Oxygen Delivery Room Air 12/18/21 08:00 12/18/21 14:00 Temperature 96.9 F L Pulse Rate 71 80 Respiratory Rate 18 18 Blood Pressure 130/60 Pulse Oximetry 100 98 Oxygen Delivery Room Air Intake/Output Intake/Output: Intake & Output 12/15/21 12/16/21 12/17/21 12/18/21 23:59 23:59 23:59 23:59 Intake Total 1040 690 Output Total 1650 Balance -610 690 Meds/Results Medications: Active Medications Generic Name Dose Route Start Last Admin Trade Name Freq PRN Reason Stop Dose Admin Acetaminophen 650 mg 12/17/21 11:36 Acetaminophen 325 Mg Tablet PO Q4H PRN Mild Pain (1-3) or Fever Allopurinol 300 mg 12/18/21 09:00 12/18/21 10:04 Allopurinol 300 Mg Tablet PO 300 mg DAILY MURRAY Administration Aspirin 81 mg 12/18/21 18:00 Aspirin 81 Mg Chewable Tablet PO QPM [facility] Colestipol HCl 1 gm 12/17/21 18:14 12/18/21 10:04 Colestipol Hcl 1 Gm Tablet PO 1 gm DAILY PRN Administration Loose Stool Cyanocobalamin 1,000 mcg 12/18/21 09:00 06
--- NOTE | 2021-12-18 17:22 | WPDUROPN2 ---
Progress Note: A&P Assessment and Plan (1) Klebsiella infection: Code(s): A49.8 - Other bacterial infections of unspecified site Status: Acute (2) E coli infection: Code(s): A49.8 - Other bacterial infections of unspecified site Status: Acute (3) Emphysematous cystitis: Code(s): N30.80 - Other cystitis without hematuria Status: Acute Plan 71 year old female with emphysematous cystitis. She had failed outpatient oral antibiotics. -continue IV antibiotics. Await final urine culture -continue Mcpherson catheter for maximum drainage - plan follow-up imaging with CT scan of the abdomen and pelvis tomorrow Subjective Subjective Date/Time Seen: 12/18/21 17:22 Review of Systems Review of Systems: Patient states she is feeling better today Exam Narrative: Breathing unlabored. Patient is awake and alert. : Other: Mcpherson catheter in place. Objective Data Vital Signs Vital Signs: Vital Signs - 24 hr 12/17/21 20:00 12/17/21 20:00 12/18/21 06:00 Temperature 35.8 C L 36.2 C L Pulse Rate 66 71 Respiratory Rate 16 18 Blood Pressure 150/81 H 155/80 H Pulse Oximetry 99 100 Oxygen Delivery Room Air 12/18/21 08:00 12/18/21 14:00 Temperature 36.1 C L Pulse Rate 71 80 Respiratory Rate 18 18 Blood Pressure 130/60 Pulse Oximetry 100 98 Oxygen Delivery Room Air Intake/Output Intake/Output: Intake & Output 12/15/21 12/16/21 12/17/21 12/18/21 23:59 23:59 23:59 23:59 Intake Total 1040 690 Output Total 1650 Balance -610 690 Meds/Results Medications: Active Medications Generic Name Dose Route Start Last Admin Trade Name Freq PRN Reason Stop Dose Admin Acetaminophen 650 mg 12/17/21 11:36 Acetaminophen 325 Mg Tablet PO Q4H PRN Mild Pain (1-3) or Fever Allopurinol 300 mg 12/18/21 09:00 12/18/21 10:04 Allopurinol 300 Mg Tablet PO 300 mg DAILY MURRAY Administration Aspirin 81 mg 12/18/21 18:00 Aspirin 81 Mg Chewable Tablet PO QPM MURRAY Colestipol HCl 1 gm 12/17/21 18:14 12/18/21 10:04 Colestipol Hcl 1 Gm Tablet PO 1 gm DAILY PRN Administration Loose Stool Cyanocobalamin 1,000 mcg 12/18/21 09:00 12/18/21 10:04 Cyanocobalamin 1,000 Mcg Tablet PO 1,000 mcg DAILY MURRAY Administration Furosemide 20 mg 12/18/21 09:00 12/18/21 10:04 Furosemide 20 Mg Tablet PO 20 mg DAILY MURRAY Administration Imipenem/Cilastatin Sodium 250 100 mls @ 300 mls/hr 12/17/21 13:15 12/18/21 10:05 mg/ Sodium Chloride IVPB 300 mls/hr Q12HR MURRAY Administration Metoprolol Tartrate 12.5 mg 12/18/21 18:00 Metoprolol Tartrate 12.5 Mg Tablet PO QPM [facility] Morphine Sulfate 2 mg 12/17/21 11:36 Morphine Sulfate (*Crx) 2 Mg/Ml Inj IV PUSH Q4H PRN Pain Rated 7-10 Pantoprazole Sodium 40 mg 12/18/21 09:00 12/18/21 10:05 Pantoprazole 40 Mg Tablet PO 40 mg Q12HR MURRAY Administration Saccharomyces Boulardii 250 mg 12/18/21 09:00 12/18/21 10:05 Saccharomyces Boulardii 250 Mg Capsule PO 250 mg BID MURRAY Administration Valsartan 40 mg 12/18/21 18:00 Valsartan 40 Mg Tablet PO QPM MURRAY Vancomycin HCl 125 mg 12/17/21 18:15 12/18/21 11:13 Vancomycin Oral 125 Mg/2.5 Ml Syrup PO 125 mg Q6HR MURRAY Administration Zolpidem Tartrate 5 mg 12/17/21 18:15 12/17/21 23:10 Zolpidem Tartrate (*Crx) 5 Mg Tablet PO 5 mg HS PRN Administration Insomnia Labs Labs: Laboratory Results - last 24 hr 12/18/21 12/18/21 08:30 08:30 WBC 6.4 RBC 3.56 L Hgb 10.6 L Hct 35.3 L MCV 99.2 MCH 29.8 MCHC 30.0 L RDW 14.9 H Plt Count 221 MPV 10.0 Immature Gran % (Auto) 0.2 Neut % (Auto) 62.1 Lymph % (Auto) 27.2 [place] % (Auto) 7.7 Eos % (Auto) 1.9 Baso % (Auto) 0.9 Lymph # (Auto) 1.73 [place] # (Auto) 0.5 Eos # (Auto) 0.1 Baso # (Auto) 0.1 Abs Immat Gran (auto) 0.01 Absolute Neuts (auto) 4.0 Absolute Nu
[2021-12-18] MEDS: ACETAMINOPHEN 325 MG TABLET 650 MG PO (18:30)
[2021-12-18 18:31] VITALS: PULSE 82
[2021-12-18] MEDS: VALSARTAN 40 MG TABLET PO (18:31)
[2021-12-18] MEDS: METOPROLOL TARTRATE 12.5 MG TABLET PO (18:31)
[2021-12-18] MEDS: ASPIRIN 81 MG CHEWABLE TABLET PO (18:31)
[2021-12-18 21:37] VITALS: BP 128/66; PULSE 56; RESP 16; TEMP 36.5; O2SAT 98
[2021-12-18] MEDS: ZOLPIDEM TARTRATE (*CRX) 5 MG TABLET PO (23:01)
[2021-12-19] MEDS: VANCOMYCIN ORAL 125 MG/2.5 ML SYRUP PO ×4 (05:25→23:12)
[2021-12-19 05:34] VITALS: BP 127/58; PULSE 62; RESP 16; TEMP 36.7; O2SAT 97
[2021-12-19 06:36] LABS: Basophils Absolute Auto 0.1 K/mm3 (0.0-0.1); Basophils Percent Auto 1.1 % (0.2-1.2); Eosinophils Absolute Auto 0.2 K/mm3 (0-0.3); Eosinophils Percent Auto 3.2 % (0-4.4); Hematocrit 32.5 % (37.0-47.0); Hemoglobin 10.1 g/dL (12.0-15.0); Immature Granulocyte Absolute 0.01 K/mm3 (0.00-0.031); Immature Granulocyte Percent A 0.2 % (0-0.5); Lymphocytes Absolute Auto 1.67 K/mm3 (0.9-3.2); Lymphocytes Percent Auto 35.7 % (18.3-44.2); Mean Corpuscular HGB Conc 31.1 g/dl (32-36); Mean Corpuscular Hemoglobin 30.5 pg (26-34); Mean Corpuscular Volume 98.2 fl (80-100); Mean Platelet Volume 10.2 fl (7.4-10.4); Monocytes Absolute Auto 0.5 K/mm3 (0.1-0.6); Monocytes Percent Auto 10.3 % (2.6-8.5); Neutrophils Absolute Auto 2.3 K/mm3 (1.3-6.7); Neutrophils Percent Auto 49.5 % (45.5-73.1); Platelet Count Result 209 k/mm3 (150-375); Red Blood Count 3.31 M/mm3 (4.2-5.4); Red Cell Distribution Width 14.9 % (11.5-14.5); White Blood Count 4.7 K/mm3 (4.5-10.0)
[2021-12-19 06:46] LABS: Alanine Aminotransferase 17 U/L (6-35); Alkaline Phosphatase 78 U/L (38-126); Anion Gap 5 mmol/L (8-16); Aspartate Amino Transferase 33 U/L (14-36); Bilirubin,Total 0.4 mg/dL (0.2-1.3); Blood Urea Nitrogen 36 mg/dL (7-17); Calcium 9.7 mg/dL (8.4-10.2); Carbon Dioxide 23 mmol/L (22-30); Chloride 111 mmol/L (98-107); Estimated CRCL calculation 35 ml/min; Estimated Glomerular Filt Rate 37; Glucose 80 mg/dL (65-110); Potassium 4.3 mmol/L (3.4-5.0); Sodium 139 mmol/L (137-145)
[2021-12-19 08:00] VITALS: PULSE 62; RESP 16; O2SAT 97
[2021-12-19] MEDS: SACCHAROMYCES BOULARDII 250 MG CAPSULE PO ×2 (09:38→18:17)
[2021-12-19] MEDS: PANTOPRAZOLE 40 MG TABLET PO ×2 (09:39→21:00)
[2021-12-19] MEDS: FUROSEMIDE 20 MG TABLET PO (12:35)
[2021-12-19] MEDS: COLESTIPOL HCL 1 GM TABLET PO (12:35)
[2021-12-19] MEDS: CYANOCOBALAMIN 1,000 MCG TABLET 1000 MCG PO (12:36)
[2021-12-19] MEDS: allopurinoL 300 MG TABLET PO (12:36)
--- NOTE | 2021-12-19 13:35 | PM.IMPN ---
Progress Note: A&P Assessment and Plan (1) Emphysematous cystitis: Code(s): N30.80 - Other cystitis without hematuria Status: Acute Assessment and Plan: Mcpherson for decompression, appreciate Urology consultation, Primaxin started December 17, 2021, discontinued December 19 after significant diarrhea and when urine culture came back completely negative, repeat CT scan pending, next dose will be at 9:00 p.m. tonight if it is restarted (2) Coronary artery disease: Qualifiers: Coronary Disease-Associated Artery/Lesion type: unspecified vessel or lesion type [place] vs. transplanted heart: [place] heart Associated angina: without angina Qualified Code(s): I25.10 - Atherosclerotic heart disease of [place] coronary artery without angina pectoris Code(s): I25.10 - Atherosclerotic heart disease of [place] coronary artery without angina pectoris Status: Chronic Assessment and Plan: Plavix being held because patient has an outpatient pancreatic cyst biopsy next week, continue aspirin, she likely will not need to restart Plavix as I do not think she continues to need dual anti-platelet therapy this far out from her PCI (3) History of colon resection: Code(s): Z90.49 - Acquired absence of other specified parts of digestive tract Status: Acute Assessment and Plan: History of partial colectomy with chronic diarrhea, being treated with colestipol (4) Necrosis of the renal papillae: Code(s): N17.2 - Acute kidney failure with medullary necrosis Status: Acute Assessment and Plan: Resolving, continue antibiotics, defer further management to Urology, hold off on Nephrology consultation at this time (5) Insomnia: Code(s): G47.00 - Insomnia, unspecified Status: Acute Assessment and Plan: Ambien as needed per patient request Plan With her history of C diff, we will continue the oral vancomycin while she is on antibiotics as well as Florastor capsules Subjective Date/time seen: 12/19/21 13:35 Interval history: Patient states she had diarrhea from 5:00 a.m. onwards. No overnight events noted. No chest pain or shortness of breath. No nausea or emesis. No fevers or chills. Review of Systems Review of Systems: 12 point review of systems was assessed and was negative except as noted in the HPI Exam Narrative: General: No acute distress, alert and oriented per baseline, lying in bed HEENT: Atraumatic, normocephalic, mucous membranes moist CV: Regular rate and rhythm, S1, S2, no murmurs rubs or gallops noted Lungs: Clear to auscultation bilaterally, no rales or crackles noted, no wheezes, good air entry Abdomen: Soft, nontender, nondistended Extremities: Normal to inspection Skin: No rashes noted, no lesions or wounds seen Psych: Euthymic, normal affect Objective Data Vital Signs Vital Signs: Vital Signs - 24 hr 12/18/21 14:00 12/18/21 18:31 12/18/21 21:37 Temperature 96.9 F L 97.7 F Pulse Rate 80 82 56 L Respiratory Rate 18 16 Blood Pressure 130/60 128/66 Pulse Oximetry 98 98 Oxygen Delivery 12/18/21 20:00 12/19/21 05:34 12/19/21 08:00 Temperature 98.0 F Pulse Rate 62 62 Respiratory Rate 16 16 Blood Pressure 127/58 L Pulse Oximetry 97 97 Oxygen Delivery Room Air Room Air Intake/Output Intake/Output: Intake & Output 12/16/21 12/17/21 12/18/21 12/19/21 23:59 23:59 23:59 23:59 Intake Total 1040 1008 240 Output Total 1650 1200 550 [id number] -874 -708 -111 Meds/Results Medications: Active Medications Generic Name Dose Route Start Last Admin Trade Name Freq PRN Reason Stop Dose Admin Acetaminophen 650 mg 12/17/21 11:36 12/18/21 18:30 Acetaminophen 325 Mg Tablet PO 650 mg Q4H PRN Administration Mild Pain (1-3) or Fever Allopurinol 300 mg 12/18/21 09:00 12/19/21 12:36 Allopurinol 300 Mg Tablet PO 300 mg DAILY MURRAY Administration Aspirin 81 mg 12/18/21 18:00 06
[2021-12-19 14:00] VITALS: BP 128/77; PULSE 75; RESP 16; TEMP 36.4; O2SAT 99
--- NOTE | 2021-12-19 14:31 | WPDUROPN2 ---
Progress Note: A&P Assessment and Plan (1) Klebsiella infection: Code(s): A49.8 - Other bacterial infections of unspecified site Status: Acute (2) E coli infection: Code(s): A49.8 - Other bacterial infections of unspecified site Status: Acute (3) Emphysematous cystitis: Code(s): N30.80 - Other cystitis without hematuria Status: Acute Assessment and Plan: She has clinical improvement, however the infection does not appear fully resolved. She would benefit from continued antibiotic therapy. Given the resistance profile of the e.coli, and development of the emphysematous pyelonephritis, she could benefit from the involvement of an infectious disease specialist to help guide antibiotic therapy choices and duration. It is possible the oral antibiotics were not providing penetration into the bladder wall, but were successfully sterilizing the urine. Subjective Subjective Date/Time Seen: 12/19/21 14:31 - She is doing well. Her UC from admission returned with no growth. Her CT scan today shows improvement in the emphysematous cystitis. I reviewed her urine PCR results from 12/10/21 from the [facility] office. She had both Klebsiella and E. Coli in the urine. The E. Coli had extensive resistance with sensitivity to Aztreonam, Ertapenem, Fosfamycin, Gentamicin, Meropenem, Nitrofurantoin, and tetracycline. She was treated with Fosfamycin and nitrofurantoin as an outpatient without clinical response. She has been on imipenem while in the hospital. Exam Narrative: She is well in NAD. Her urine is charlette colored. Objective Data Vital Signs Vital Signs: Vital Signs - 24 hr 12/18/21 18:31 12/18/21 21:37 12/18/21 20:00 Temperature 36.5 C Pulse Rate 82 56 L Respiratory Rate 16 Blood Pressure 128/66 Pulse Oximetry 98 Oxygen Delivery Room Air 12/19/21 05:34 12/19/21 08:00 Temperature 36.7 C Pulse Rate 62 62 Respiratory Rate 16 16 Blood Pressure 127/58 L Pulse Oximetry 97 97 Oxygen Delivery Room Air Intake/Output Intake/Output: Intake & Output 12/16/21 12/17/21 12/18/21 12/19/21 23:59 23:59 23:59 23:59 Intake Total 1040 1008 240 Output Total 1650 1200 550 Balance -610 -192 -310 Meds/Results Medications: Active Medications Generic Name Dose Route Start Last Admin Trade Name [place] PRN Reason Stop Dose Admin Acetaminophen 650 mg 12/17/21 11:36 12/18/21 18:30 Acetaminophen 325 Mg Tablet PO 650 mg Q4H PRN Administration Mild Pain (1-3) or Fever Allopurinol 300 mg 12/18/21 09:00 12/19/21 12:36 Allopurinol 300 Mg Tablet PO 300 mg DAILY MURRAY Administration Aspirin 81 mg 12/18/21 18:00 12/18/21 18:31 Aspirin 81 Mg Chewable Tablet PO 81 mg QPM MURRAY Administration Colestipol HCl 1 gm 12/17/21 18:14 12/19/21 12:35 Colestipol Hcl 1 Gm Tablet PO 1 gm DAILY PRN Administration Loose Stool Cyanocobalamin 1,000 mcg 12/18/21 09:00 12/19/21 12:36 Cyanocobalamin 1,000 Mcg Tablet PO 1,000 mcg DAILY MURRAY Administration Furosemide 20 mg 12/18/21 09:00 12/19/21 12:35 Furosemide 20 Mg Tablet PO 20 mg DAILY MURRAY Administration Metoprolol Tartrate 12.5 mg 12/18/21 18:00 12/18/21 18:31 Metoprolol Tartrate 12.5 Mg Tablet PO 12.5 mg QPM MURRAY Administration Morphine Sulfate 2 mg 12/17/21 11:36 Morphine Sulfate (*Crx) 2 Mg/Ml Inj IV PUSH Q4H PRN Pain Rated 7-10 Pantoprazole Sodium 40 mg 12/18/21 09:00 12/19/21 09:39 Pantoprazole 40 Mg Tablet PO 40 mg Q12HR MURRAY Administration Saccharomyces Boulardii 250 mg 12/18/21 09:00 12/19/21 09:38 Saccharomyces Boulardii 250 Mg Capsule PO 250 mg BID MURRAY Administration Valsartan 40 mg 12/18/21 18:00 12/18/21 18:31 Valsartan 40 Mg Tablet PO 40 mg QPM MURRAY Administration Vancomycin HCl 125 mg 12/17/21 18:15 12/19/21 12:38 Vancomycin Oral 125 Mg/2.5 Ml Syrup PO 125 mg Q6HR MURRAY Administration Zolpidem Tartr
[2021-12-19] MEDS: VALSARTAN 40 MG TABLET PO (18:17)
[2021-12-19 18:18] VITALS: PULSE 74
[2021-12-19] MEDS: ASPIRIN 81 MG CHEWABLE TABLET PO (18:18)
[2021-12-19] MEDS: METOPROLOL TARTRATE 12.5 MG TABLET PO (18:18)
[2021-12-19 22:00] VITALS: BP 118/59; PULSE 60; TEMP 36.7; O2SAT 96
[2021-12-19] MEDS: ZOLPIDEM TARTRATE (*CRX) 5 MG TABLET PO (23:12)
[2021-12-20] MEDS: VANCOMYCIN ORAL 125 MG/2.5 ML SYRUP PO ×3 (05:01→18:08)
[2021-12-20 06:00] VITALS: BP 117/47; PULSE 65; RESP 18; TEMP 36.8; O2SAT 97
[2021-12-20 06:24] LABS: Basophils Percent Auto 0.8 % (0.2-1.2); Eosinophils Absolute Auto 0.2 K/mm3 (0-0.3); Eosinophils Percent Auto 4.1 % (0-4.4); Hematocrit 31.9 % (37.0-47.0); Hemoglobin 9.7 g/dL (12.0-15.0); Immature Granulocyte Absolute 0.02 K/mm3 (0.00-0.031); Immature Granulocyte Percent A 0.4 % (0-0.5); Lymphocytes Absolute Auto 1.27 K/mm3 (0.9-3.2); Lymphocytes Percent Auto 24.6 % (18.3-44.2); Mean Corpuscular HGB Conc 30.4 g/dl (32-36); Mean Corpuscular Hemoglobin 29.8 pg (26-34); Mean Corpuscular Volume 98.2 fl (80-100); Mean Platelet Volume 9.8 fl (7.4-10.4); Monocytes Absolute Auto 0.6 K/mm3 (0.1-0.6); Monocytes Percent Auto 10.7 % (2.6-8.5); Neutrophils Absolute Auto 3.1 K/mm3 (1.3-6.7); Neutrophils Percent Auto 59.4 % (45.5-73.1); Platelet Count Result 194 k/mm3 (150-375); Red Blood Count 3.25 M/mm3 (4.2-5.4); Red Cell Distribution Width 14.7 % (11.5-14.5); White Blood Count 5.2 K/mm3 (4.5-10.0)
[2021-12-20 06:26] LABS: Alanine Aminotransferase 17 U/L (6-35); Albumin Level 3.7 g/dL (3.5-5.1); Alkaline Phosphatase 81 U/L (38-126); Anion Gap 6 mmol/L (8-16); Aspartate Amino Transferase 24 U/L (14-36); Bilirubin,Total 0.2 mg/dL (0.2-1.3); Blood Urea Nitrogen 34 mg/dL (7-17); Calcium 9.5 mg/dL (8.4-10.2); Carbon Dioxide 19 mmol/L (22-30); Chloride 113 mmol/L (98-107); Estimated CRCL calculation 38 ml/min; Estimated Glomerular Filt Rate 40; Glucose 93 mg/dL (65-110); Sodium 138 mmol/L (137-145)
--- NOTE | 2021-12-20 07:28 | PM.IMPN ---
Progress Note: A&P Assessment and Plan (1) Emphysematous cystitis: Code(s): N30.80 - Other cystitis without hematuria Status: Acute Assessment and Plan: Mcpherson for decompression, appreciate Urology consultation, Primaxin started December 17, 2021, discontinued December 19 after significant diarrhea and when urine culture came back completely negative, however, notified that culture in urology office showed drug resistant E coli, details pending, CT scan showed significant improvement of emphysematous cystitis Plan is to consult Infectious Disease pharmacist, discussed case with Infectious Disease colleagues, create a discharge plan with appropriate antibiotic administration (2) Coronary artery disease: Qualifiers: Associated angina: without angina Coronary Disease-Associated Artery/Lesion type: unspecified vessel or lesion type [place] vs. transplanted heart: [place] heart Qualified Code(s): I25.10 - Atherosclerotic heart disease of [place] coronary artery without angina pectoris Code(s): I25.10 - Atherosclerotic heart disease of [place] coronary artery without angina pectoris Status: Chronic Assessment and Plan: Plavix being held because patient has an outpatient pancreatic cyst biopsy next week, continue aspirin, she likely will not need to restart Plavix as I do not think she continues to need dual anti-platelet therapy this far out from her PCI (3) History of colon resection: Code(s): Z90.49 - Acquired absence of other specified parts of digestive tract Status: Acute Assessment and Plan: History of partial colectomy with chronic diarrhea, being treated with colestipol (4) Necrosis of the renal papillae: Code(s): N17.2 - Acute kidney failure with medullary necrosis Status: Acute Assessment and Plan: Appears to be at baseline renal function (5) Insomnia: Code(s): G47.00 - Insomnia, unspecified Status: Acute Assessment and Plan: Ambien as needed per patient request Plan With her history of C diff, we will continue the oral vancomycin while she is on antibiotics as well as Florastor capsules Subjective Date/time seen: 12/20/21 07:28 Interval history: Patient sitting up in bed, states her diarrhea significantly improved. No overnight events noted. No chest pain or shortness of breath. No nausea, vomiting or diarrhea. No fevers or chills. Review of Systems Review of Systems: 12 point review of systems was assessed and was negative except as noted in the HPI Exam Narrative: General: No acute distress, alert and oriented per baseline, lying in bed HEENT: Atraumatic, normocephalic, mucous membranes moist CV: Regular rate and rhythm, S1, S2, no murmurs rubs or gallops noted Lungs: Clear to auscultation bilaterally, no rales or crackles noted, no wheezes, good air entry Abdomen: Soft, nontender, nondistended Extremities: Normal to inspection Skin: No rashes noted, no lesions or wounds seen Psych: Euthymic, normal affect Objective Data Vital Signs Vital Signs: Vital Signs - 24 hr 12/19/21 08:00 12/19/21 14:00 12/19/21 18:18 Temperature 97.5 F L Pulse Rate 62 75 74 Respiratory Rate 16 16 Blood Pressure 128/77 Pulse Oximetry 97 99 Oxygen Delivery Room Air 12/19/21 20:00 12/19/21 22:00 12/20/21 06:00 Temperature 98.1 F 98.2 F Pulse Rate 60 65 Respiratory Rate 18 Blood Pressure 118/59 L 117/47 L Pulse Oximetry 96 97 Oxygen Delivery Room Air Intake/Output Intake/Output: Intake & Output 12/17/21 12/18/21 12/19/21 12/20/21 23:59 23:59 23:59 23:59 Intake Total 1040 1008 1190 350 Output Total 1650 1200 1850 900 Balance -610 -192 -660 -550 Meds/Results Medications: Active Medications Generic Name Dose Route Start Last Admin Trade Name Freq PRN Reason Stop Dose Admin Acetaminophen 650 mg 12/17/21 11:36 12/18/21 18:30 Acetaminophen 325 Mg Tablet PO 650 mg Q4H MS
[2021-12-20 08:00] VITALS: PULSE 65; RESP 18; O2SAT 97
[2021-12-20] MEDS: SACCHAROMYCES BOULARDII 250 MG CAPSULE PO ×2 (09:46→18:14)
[2021-12-20] MEDS: PANTOPRAZOLE 40 MG TABLET PO ×2 (09:46→21:49)
[2021-12-20] MEDS: allopurinoL 300 MG TABLET PO (09:46)
[2021-12-20] MEDS: CYANOCOBALAMIN 1,000 MCG TABLET 1000 MCG PO (09:46)
[2021-12-20] MEDS: FUROSEMIDE 20 MG TABLET PO (09:46)
--- NOTE | 2021-12-20 11:45 | WPDUROPN2 ---
Progress Note: A&P Assessment and Plan (1) Emphysematous cystitis: Code(s): N30.80 - Other cystitis without hematuria Status: Acute Assessment and Plan: Continue antibiotics. Continue Mcpherson catheter. Consider removal of Mcpherson tomorrow. She would benefit from ID consultation regarding duration of therapy as she had a resistant e. coli on office culture. Likely the hospital culture was negative due to urine sterilization that was not treating the bladder tissue infection. Subjective Subjective Date/Time Seen: 12/20/21 11:45: she is well; urine is clear in Mcpherson Exam Narrative: Urine clear. Patient in NAD Objective Data Vital Signs Vital Signs: Vital Signs - 24 hr 12/19/21 14:00 12/19/21 18:18 12/19/21 20:00 Temperature 36.4 C L Pulse Rate 75 74 Respiratory Rate 16 Blood Pressure 128/77 Pulse Oximetry 99 Oxygen Delivery Room Air 12/19/21 22:00 12/20/21 06:00 12/20/21 08:00 Temperature 36.7 C 36.8 C Pulse Rate 60 65 65 Respiratory Rate 18 18 Blood Pressure 118/59 L 117/47 L Pulse Oximetry 96 97 97 Oxygen Delivery Room Air Intake/Output Intake/Output: Intake & Output 12/17/21 12/18/21 12/19/21 12/20/21 23:59 23:59 23:59 23:59 Intake Total 1040 1008 1190 590 Output Total 1650 1200 1850 900 Balance -610 -192 -660 -310 Meds/Results Medications: Active Medications Generic Name Dose Route Start Last Admin Trade Name Freq PRN Reason Stop Dose Admin Acetaminophen 650 mg 12/17/21 11:36 12/18/21 18:30 Acetaminophen 325 Mg Tablet PO 650 mg Q4H PRN Administration Mild Pain (1-3) or Fever Allopurinol 300 mg 12/18/21 09:00 12/20/21 09:46 Allopurinol 300 Mg Tablet PO 300 mg DAILY MURRAY Administration Aspirin 81 mg 12/18/21 18:00 12/19/21 18:18 Aspirin 81 Mg Chewable Tablet PO 81 mg QPM MURRAY Administration Colestipol HCl 1 gm 12/17/21 18:14 12/19/21 12:35 Colestipol Hcl 1 Gm Tablet PO 1 gm DAILY PRN Administration Loose Stool Cyanocobalamin 1,000 mcg 12/18/21 09:00 12/20/21 09:46 Cyanocobalamin 1,000 Mcg Tablet PO 1,000 mcg DAILY MURRAY Administration Furosemide 20 mg 12/18/21 09:00 12/20/21 09:46 Furosemide 20 Mg Tablet PO 20 mg DAILY MURRAY Administration Imipenem/Cilastatin Sodium 500 100 mls @ 200 mls/hr 12/19/21 22:00 12/20/21 05:31 mg/ Sodium Chloride IVPB Infused Q8HR MURRAY Infusion Metoprolol Tartrate 12.5 mg 12/18/21 18:00 12/19/21 18:18 Metoprolol Tartrate 12.5 Mg Tablet PO 12.5 mg QPM MURRAY Administration Morphine Sulfate 2 mg 12/17/21 11:36 Morphine Sulfate (*Crx) 2 Mg/Ml Inj IV PUSH Q4H PRN Pain Rated 7-10 Pantoprazole Sodium 40 mg 12/18/21 09:00 12/20/21 09:46 Pantoprazole 40 Mg Tablet PO 40 mg Q12HR MURRAY Administration Saccharomyces Boulardii 250 mg 12/18/21 09:00 12/20/21 09:46 Saccharomyces Boulardii 250 Mg Capsule PO 250 mg BID MURRAY Administration Valsartan 40 mg 12/18/21 18:00 12/19/21 18:17 Valsartan 40 Mg Tablet PO 40 mg QPM MURRAY Administration Vancomycin HCl 125 mg 12/17/21 18:15 12/20/21 05:01 Vancomycin Oral 125 Mg/2.5 Ml Syrup PO 125 mg Q6HR MURRAY Administration Zolpidem Tartrate 5 mg 12/17/21 18:15 12/19/21 23:12 Zolpidem Tartrate (*Crx) 5 Mg Tablet PO 5 mg HS PRN Administration Insomnia Radiology Results: ITS Impressions Abdomen/Pelvis CT 12/19/21 17:01 IMPRESSION: Resolving emphysematous cystitis. No new acute abdominopelvic process detected. No other significant interval change. Labs Labs: Laboratory Results - last 24 hr 12/20/21 12/20/21 05:58 05:58 WBC 5.2 RBC 3.25 L Hgb 9.7 L Hct 31.9 L MCV 98.2 MCH 29.8 MCHC 30.4 L RDW 14.7 H Plt Count 194 MPV 9.8 Immature Gran % (Auto) 0.4 Neut % (Auto) 59.4 Lymph % (Auto) 24.6 Coal % (Auto) 10.7 H Eos % (Auto) 4.1 Baso % (Auto) 0.8 Lymph # (Auto) 1.27 Coal #
[2021-12-20 14:56] VITALS: BP 132/66; PULSE 71; RESP 16; TEMP 36.6; O2SAT 99
[2021-12-20 18:14] VITALS: PULSE 72
[2021-12-20] MEDS: VALSARTAN 40 MG TABLET PO (18:14)
[2021-12-20] MEDS: METOPROLOL TARTRATE 12.5 MG TABLET PO (18:14)
[2021-12-20] MEDS: ASPIRIN 81 MG CHEWABLE TABLET PO (18:14)
[2021-12-20 22:00] VITALS: BP 123/75; PULSE 60; RESP 16; TEMP 36; O2SAT 99
[2021-12-20] MEDS: ZOLPIDEM TARTRATE (*CRX) 5 MG TABLET PO (22:29)
[2021-12-21] MEDS: VANCOMYCIN ORAL 125 MG/2.5 ML SYRUP PO ×4 (00:04→17:58)
[2021-12-21 06:00] VITALS: BP 110/76; PULSE 73; RESP 16; TEMP 36; O2SAT 100
[2021-12-21 06:22] LABS: Basophils Absolute Auto 0.1 K/mm3 (0.0-0.1); Basophils Percent Auto 1.3 % (0.2-1.2); Eosinophils Absolute Auto 0.2 K/mm3 (0-0.3); Eosinophils Percent Auto 3.3 % (0-4.4); Hematocrit 38.3 % (37.0-47.0); Hemoglobin 11.1 g/dL (12.0-15.0); Immature Granulocyte Absolute 0.03 K/mm3 (0.00-0.031); Immature Granulocyte Percent A 0.6 % (0-0.5); Lymphocytes Absolute Auto 1.72 K/mm3 (0.9-3.2); Lymphocytes Percent Auto 31.7 % (18.3-44.2); Mean Corpuscular Hemoglobin 30.2 pg (26-34); Mean Corpuscular Volume 104.4 fl (80-100); Mean Platelet Volume 9.9 fl (7.4-10.4); Monocytes Absolute Auto 0.5 K/mm3 (0.1-0.6); Monocytes Percent Auto 9.4 % (2.6-8.5); Neutrophils Absolute Auto 2.9 K/mm3 (1.3-6.7); Neutrophils Percent Auto 53.7 % (45.5-73.1); Platelet Count Result 214 k/mm3 (150-375); Red Blood Count 3.67 M/mm3 (4.2-5.4); Red Cell Distribution Width 14.6 % (11.5-14.5); White Blood Count 5.4 K/mm3 (4.5-10.0)
[2021-12-21 06:50] LABS: Alanine Aminotransferase 16 U/L (6-35); Alkaline Phosphatase 87 U/L (38-126); Anion Gap 11 mmol/L (8-16); Aspartate Amino Transferase 26 U/L (14-36); Bilirubin,Total 0.4 mg/dL (0.2-1.3); Blood Urea Nitrogen 30 mg/dL (7-17); Calcium 10.2 mg/dL (8.4-10.2); Carbon Dioxide 19 mmol/L (22-30); Chloride 108 mmol/L (98-107); Estimated CRCL calculation 41 ml/min; Estimated Glomerular Filt Rate 44; Glucose 94 mg/dL (65-110); Potassium 4.1 mmol/L (3.4-5.0); Sodium 138 mmol/L (137-145)
--- NOTE | 2021-12-21 07:44 | WPDUROPN2 ---
Progress Note: A&P Assessment and Plan (1) Emphysematous cystitis: Code(s): N30.80 - Other cystitis without hematuria Status: Acute Assessment and Plan: Urine culture in the office grew out E coli and Klebsiella. Both sensitive to nitrofurantoin and Invanz. Fluid or recommend 10-14 days total of antibiotic. Based on sensitivity may need to be a daily IV antibiotic through a PICC line. Invanz may be most appropriate. I fear that nitrofurantoin may not cause enough penetration. When she is ready for discharge home can remove Mcpherson catheter. CT scan shows improvement of her emphysematous cystitis Subjective Subjective Date/Time Seen: 12/21/21 07:44 Tolerating Mcpherson. Urine is blood tinged. She is feeling improved. Urine culture from office shows E coli as well as Klebsiella. The only oral antibiotic they were both sensitive to was nitrofurantoin. IV hurtado they are both sensitive to Invanz which is a daily IV or IM antibiotics Exam Narrative: Mcpherson draining blood-tinged urine. She otherwise is in no acute distress with normal breathing. Alert orient x3 Objective Data Vital Signs Vital Signs: Vital Signs - 24 hr 12/20/21 08:00 12/20/21 14:56 12/20/21 18:14 Temperature 97.9 F Pulse Rate 65 71 72 Respiratory Rate 18 16 Blood Pressure 132/66 Pulse Oximetry 97 99 Oxygen Delivery Room Air 12/20/21 22:00 12/21/21 06:00 Temperature 96.8 F L 96.8 F L Pulse Rate 60 73 Respiratory Rate 16 16 Blood Pressure 123/75 110/76 Pulse Oximetry 99 100 Oxygen Delivery Intake/Output Intake/Output: Intake & Output 12/18/21 12/19/21 12/20/21 12/21/21 23:59 23:59 23:59 23:59 Intake Total 1008 1190 1510 550 Output Total 1200 1850 3050 600 Balance -192 -660 -1540 -50 Meds/Results Medications: Active Medications Generic Name Dose Route Start Last Admin Trade Name Freq PRN Reason Stop Dose Admin Acetaminophen 650 mg 12/17/21 11:36 12/18/21 18:30 Acetaminophen 325 Mg Tablet PO 650 mg Q4H PRN Administration Mild Pain (1-3) or Fever Allopurinol 300 mg 12/18/21 09:00 12/20/21 09:46 Allopurinol 300 Mg Tablet PO 300 mg DAILY MURRAY Administration Aspirin 81 mg 12/18/21 18:00 12/20/21 18:14 Aspirin 81 Mg Chewable Tablet PO 81 mg QPM MURRAY Administration Colestipol HCl 1 gm 12/17/21 18:14 12/19/21 12:35 Colestipol Hcl 1 Gm Tablet PO 1 gm DAILY PRN Administration Loose Stool Cyanocobalamin 1,000 mcg 12/18/21 09:00 12/20/21 09:46 Cyanocobalamin 1,000 Mcg Tablet PO 1,000 mcg DAILY MURRAY Administration Furosemide 20 mg 12/18/21 09:00 12/20/21 09:46 Furosemide 20 Mg Tablet PO 20 mg DAILY MURRAY Administration Imipenem/Cilastatin Sodium 500 100 mls @ 200 mls/hr 12/19/21 22:00 12/21/21 05:57 mg/ Sodium Chloride IVPB 200 mls/hr Q8HR MURRAY Administration Metoprolol Tartrate 12.5 mg 12/18/21 18:00 12/20/21 18:14 Metoprolol Tartrate 12.5 Mg Tablet PO 12.5 mg QPM MURRAY Administration Morphine Sulfate 2 mg 12/17/21 11:36 Morphine Sulfate (*Crx) 2 Mg/Ml Inj IV PUSH Q4H PRN Pain Rated 7-10 Pantoprazole Sodium 40 mg 12/18/21 09:00 12/20/21 21:49 Pantoprazole 40 Mg Tablet PO 40 mg Q12HR MURRAY Administration Saccharomyces Boulardii 250 mg 12/18/21 09:00 12/20/21 18:14 Saccharomyces Boulardii 250 Mg Capsule PO 250 mg BID MURRAY Administration Valsartan 40 mg 12/18/21 18:00 12/20/21 18:14 Valsartan 40 Mg Tablet PO 40 mg QPM MURRAY Administration Vancomycin HCl 125 mg 12/17/21 18:15 12/21/21 05:57 Vancomycin Oral 125 Mg/2.5 Ml Syrup PO 125 mg Q6HR MURRAY Administration Zolpidem Tartrate 5 mg 12/17/21 18:15 12/20/21 22:29 Zolpidem Tartrate (*Crx) 5 Mg Tablet PO 5 mg HS PRN Administration Insomnia Radiology Results: ITS Impressions Abdomen/Pelvis CT 12/19/21 17:01 IMPRESSION: Resolving emphysematous cystitis. No new acute abdominopelvic proc
[2021-12-21] MEDS: SACCHAROMYCES BOULARDII 250 MG CAPSULE PO ×2 (10:04→17:36)
[2021-12-21] MEDS: allopurinoL 300 MG TABLET PO (10:04)
[2021-12-21] MEDS: FUROSEMIDE 20 MG TABLET PO (10:04)
[2021-12-21] MEDS: CYANOCOBALAMIN 1,000 MCG TABLET 1000 MCG PO (10:04)
[2021-12-21] MEDS: PANTOPRAZOLE 40 MG TABLET PO (10:04)
--- NOTE | 2021-12-21 11:44 | PCPTNOTE ---
Attempted PT evaluation. Patient declined the need of therapy services and claims she is independent in room including ambulating hallways. Hospitalist contacted and agreed to DC orders at this time.
[2021-12-21] MEDS: ERTAPENEM 1 GM/NS 50 ML 1 GM/50 ML BAG IVPB (12:15)
[2021-12-21 14:00] VITALS: BP 113/63; PULSE 74; RESP 16; TEMP 37.5; O2SAT 100
[2021-12-21] MEDS: LIDOCAINE HCL 1% LOCAL INJ 2 ML AMPUL 5 ML INFILTRATE ×2 (14:50→17:33)
--- NOTE | 2021-12-21 16:03 | PM.DS ---
DS: Admitting Diagnosis Discharge Date December 21, 2021 Admitting Diagnosis Emphysematous cystitis DS: Discharge Diagnosis Discharge Diagnosis (1) Emphysematous cystitis: Code(s): N30.80 - Other cystitis without hematuria Status: Acute Assessment and Plan: Mcpherson for decompression, appreciate Urology consultation, Primaxin started December 17, 2021, discontinued December 19 after significant diarrhea and when urine culture came back completely negative, however, notified that culture in urology office showed drug resistant E coli, details pending, CT scan showed significant improvement of emphysematous cystitis Plan is to consult Infectious Disease pharmacist, discussed case with Infectious Disease colleagues, create a discharge plan with appropriate antibiotic administration (2) Coronary artery disease: Qualifiers: Coronary Disease-Associated Artery/Lesion type: unspecified vessel or lesion type [place] vs. transplanted heart: [place] heart Associated angina: without angina Qualified Code(s): I25.10 - Atherosclerotic heart disease of [place] coronary artery without angina pectoris Code(s): I25.10 - Atherosclerotic heart disease of [place] coronary artery without angina pectoris Status: Chronic Assessment and Plan: Plavix being held because patient has an outpatient pancreatic cyst biopsy next week, continue aspirin, she likely will not need to restart Plavix as I do not think she continues to need dual anti-platelet therapy this far out from her PCI (3) History of colon resection: Code(s): Z90.49 - Acquired absence of other specified parts of digestive tract Status: Acute Assessment and Plan: History of partial colectomy with chronic diarrhea, being treated with colestipol (4) Necrosis of the renal papillae: Code(s): N17.2 - Acute kidney failure with medullary necrosis Status: Acute Assessment and Plan: Appears to be at baseline renal function (5) Insomnia: Code(s): G47.00 - Insomnia, unspecified Status: Acute Assessment and Plan: Ambien as needed per patient request Plan With her history of C diff, we will continue the oral vancomycin while she is on antibiotics as well as Florastor capsules DS: Summary Hospital Course Hospital Course: 71-year-old female with past medical history significant for MT requiring PCI 1999, colon cancer currently in remission, heart disease, hyperlipidemia and hypertension as well as recent C diff infection several months ago as well as a long history of recurrent complicated UTIs is being direct admitted from the urologist's office for emphysematous cystitis found on CT scan. Urology has been treating patient for about a month with Macrobid as well as a 3 day course of Monurol without any resolution. At this time, Urology is requesting admission for IV antibiotics as well as a Mcpherson catheter for decompression of her bladder. Due to patient's history of C diff, she was started on oral vancomycin as well as Florastor capsules that she takes at home. She also has chronic diarrhea secondary to her partial colectomy from colon cancer treatment that she treats with colestipol at home. Urine culture done on outpatient basis showed E coli and Klebsiella that appeared to be sensitive to nitrofurantoin as well as carbapenems. Therefore, having failed outpatient oral therapy, she was started on IV Primaxin 500 mg q.8 hours and symptoms improved. Repeat CT scan was done that showed resolving symptoms. She was given a single dose of ertapenem to see if we can get her on outpatient infusions once a day as opposed to q.8. Ertapenem was significantly more expensive and also gave her some nausea. Therefore, she was discharged with a midline and Primaxin infusions q.8 hours at home with close outpatient follow-up from Urology. Time Spent with Patient Time attestation: Total time spent providing and/or coordinating discharge service
[2021-12-21 17:36] VITALS: PULSE 73
[2021-12-21] MEDS: VALSARTAN 40 MG TABLET PO (17:36)
[2021-12-21] MEDS: ASPIRIN 81 MG CHEWABLE TABLET PO (17:36)
[2021-12-21] MEDS: METOPROLOL TARTRATE 12.5 MG TABLET PO (17:36)
== END 2021-12-21 18:00 | disposition home health service (06) | DRG 689 ==
PROVIDERS: Admitting Provider Student in an Organized Health Care Education/Training Program; PCP Family Medicine Sports Medicine; Visit Provider Student in an Organized Health Care Education/Training Program
DX: N30.80 Other cystitis without hematuria (principal); N17.2 Acute kidney failure with medullary necrosis; I25.10 Atherosclerotic heart disease of native coronary artery without angina pectoris; G47.00 Insomnia, unspecified; E78.5 Hyperlipidemia, unspecified; I11.0 Hypertensive heart disease with heart failure; I50.9 Heart failure, unspecified; I25.2 Old myocardial infarction; Z90.49 Acquired absence of other specified parts of digestive tract; Z86.73 Personal history of transient ischemic attack (TIA), and cerebral infarction without residual deficits; Z95.5 Presence of coronary angioplasty implant and graft; Z90.710 Acquired absence of both cervix and uterus; Z79.82 Long term (current) use of aspirin; Z85.038 Personal history of other malignant neoplasm of large intestine
CPT/HCPCS: 36415; 36569; 74018; 74176; 74178; 80048; 80053; 85025; 87086; 96365; A9270; C1751; G0378; G0379; J0743; J1335; Q9967

== ENCOUNTER 2022-02-16 11:50 | Outpatient (CLI) | payer MEDICARE, OTHER, SELFPAY ==
[2022-02-16 13:49] LABS: IFOB Positive Control Positive; Immunochemical Fecal Occult Bl Positive (N)
[2022-02-16 15:55] LABS: Toxigenic C. Diff POSITIVE (NEGATIVE)
== END 2022-02-16 11:51 | disposition home or self-care (01) ==
PROVIDERS: PCP Family Medicine Sports Medicine; Visit Provider Nurse Practitioner Family
DX: R19.7 Diarrhea, unspecified (principal); K92.1 Melena
CPT/HCPCS: 82274; 87045; 87177; 87209; 87427; 87493

== ENCOUNTER 2022-03-23 08:52 | Outpatient (CLI) | payer MEDICARE, OTHER, SELFPAY ==
[2022-03-23 09:55] LABS: Basophils Percent Auto 0.5 % (0.2-1.2); Eosinophils Percent Auto 0.4 % (0-4.4); Hemoglobin 9.2 g/dL (12.0-15.0); Immature Granulocyte Absolute 0.02 K/mm3 (0.00-0.031); Immature Granulocyte Percent A 0.2 % (0-0.5); Lymphocytes Absolute Auto 0.71 K/mm3 (0.9-3.2); Lymphocytes Percent Auto 8.5 % (18.3-44.2); Mean Corpuscular HGB Conc 29.7 g/dl (32-36); Mean Corpuscular Hemoglobin 28.2 pg (26-34); Mean Corpuscular Volume 95.1 fl (80-100); Mean Platelet Volume 10.6 fl (7.4-10.4); Monocytes Absolute Auto 0.6 K/mm3 (0.1-0.6); Neutrophils Percent Auto 83.4 % (45.5-73.1); Platelet Count Result 189 k/mm3 (150-375); Red Blood Count 3.26 M/mm3 (4.2-5.4); Red Cell Distribution Width 15.4 % (11.5-14.5); White Blood Count 8.3 K/mm3 (4.5-10.0)
[2022-03-23 10:04] LABS: Alanine Aminotransferase 22 U/L (6-35); Alkaline Phosphatase 78 U/L (38-126); Anion Gap 10 mmol/L (8-16); Aspartate Amino Transferase 34 U/L (14-36); Bilirubin,Total 0.7 mg/dL (0.2-1.3); Blood Urea Nitrogen 26 mg/dL (7-17); Carbon Dioxide 27 mmol/L (22-30); Chloride 102 mmol/L (98-107); Estimated Glomerular Filt Rate 34; Glucose 97 mg/dL (65-110); Potassium 3.8 mmol/L (3.4-5.0); Sodium 139 mmol/L (137-145)
[2022-03-23 10:30] LABS: D Dimer 0.73 ug/mL (<0.48)
[2022-03-23 11:39] LABS: Erythrocyte Sedimentation Rate 71 mm/hr (0-20)
== END 2022-03-23 08:53 | disposition home or self-care (01) ==
LOC: ANHLAB 08:56
PROVIDERS: PCP Family Medicine Sports Medicine; Visit Provider Nurse Practitioner
DX: R22.0 Localized swelling, mass and lump, head (principal); L81.9 Disorder of pigmentation, unspecified; R68.83 Chills (without fever); B37.0 Candidal stomatitis
CPT/HCPCS: 36415; 80053; 85025; 85380; 85652

== ENCOUNTER 2022-03-23 13:02 | Outpatient (CLI) | payer MEDICARE, OTHER, SELFPAY ==
--- NOTE | ~2022-03-23 | CT_ITS ---
EXAMINATION: CT diagnostic chest wo con DATE: 03/23/2022 14:03 INDICATION: 2 weeks of shortness of breath and elevated d-dimer. TECHNIQUE: Computed tomography (CT) of the chest was performed without intravenous contrast. Addition al 3D reconstructions utilizing coronal maximum intensity projection (MIP) were performed. Automated exposure control and iterative reconstruction technique were employed. The dose-length product was 26 4.77 mGy-cm. COMPARISON: 09/20/2018 FINDINGS: Mild discoid atelectasis at the bilateral anterior lung bases. Mild emphysema. No pneumonia, pulmonar y edema, pleural effusion or pneumothorax. Calcified left perihilar lymph node consistent with old gr anulomatous disease. Heart size is normal. Atherosclerotic coronary artery calcifications. No pericar dial effusion. Thoracic aorta is normal in caliber. No significant change in an intrathoracic thyroid nodule goiter with a couple calcified nodules in the right thyroid lobe. Interval increase in size o f a previously 1.5 x 1.0 cm currently 1.9 x 1.3 cm prevascular lymph node. No other pathologically en larged thoracic lymphadenopathy. Cholecystectomy clips at the gallbladder fossa. Bilateral renal cyst s. Somewhat lobular contour to the pancreas which could be developmental or sequela of prior infarct or trauma. Mild thoracic kyphosis with mild dextrocurvature and moderate spondylosis. Chronic mild an terior wedging of a couple mid thoracic vertebral bodies. IMPRESSION: 1. Mild emphysema with mild discoid atelectasis at the bilateral anterior lung bases. 2. Single mildly largest prevascular lymph node which is most likely reactive. Reviewed, dictated and finalized at location A.
--- NOTE | ~2022-03-23 | US_ITS ---
EXAMINATION: US venous doppler [facility] DATE: 03/23/2022 14:01 INDICATION: Weeks of shortness of breath. Elevated d-dimer. TECHNIQUE: Grayscale ultrasound images without and with compression and Doppler ultrasound images of the bilateral lower extremity veins were obtained. COMPARISON: 11/25/2017 FINDINGS: The visualized portions of right common femoral vein, profunda (deep) femoral vein, femoral vein, pop liteal vein, posterior tibial veins, peroneal veins, gastrocnemius vein and greater saphenous vein ou tflow remain patent. The visualized portions of left common femoral vein, profunda femoral vein, femoral vein, popliteal v ein, posterior tibial veins, peroneal veins, gastrocnemius vein and greater saphenous vein outflow re main patent. IMPRESSION: 1. No deep venous thrombosis in either lower limb. Reviewed, dictated and finalized at location A.
== END 2022-03-23 13:03 | disposition home or self-care (01) ==
PROVIDERS: PCP Family Medicine Sports Medicine; Visit Provider Family Medicine Sports Medicine
DX: R79.89 Other specified abnormal findings of blood chemistry (principal); J43.9 Emphysema, unspecified
CPT/HCPCS: 36415; 71250; 80053; 85025; 85380; 85652; 93970

== ENCOUNTER 2022-04-13 03:02 | Inpatient (IN) | payer MEDICARE, OTHER, SELFPAY ==
[2022-04-13] VITALS (56 sets, daily range): BP systolic 65–122; BP diastolic 43–92; PULSE 59–83; RESP 10–24; TEMP 36.1–36.6; O2SAT 98–100; BMI 34.5
--- NOTE | ~2022-04-13 | CT_ITS ---
EXAMINATION: CT abdomen pelvis wo con DATE: 04/13/2022 04:18 INDICATION: Left lower quadrant abdominal pain. Rectal bleeding. TECHNIQUE: Computed tomography (CT) of the abdomen and pelvis was performed without intravenous contr ast. Automated exposure control and iterative reconstruction technique were employed. The dose-length product was 1109.95 mGy-cm. COMPARISON: 12/19/2021 FINDINGS: Mild atelectasis at the left lung base. Heart size is normal. Atherosclerotic coronary artery calcifi cation and aortic valve calcification. No pericardial or pleural effusion. Cholecystectomy clips the gallbladder fossa. Liver, spleen, pancreas and bilateral adrenal glands are normal. Several bilateral renal cysts, the largest measuring 3.5 similar at the lower pole of the left kidney and including vee bcentimeter low dense proteinaceous/hemorrhagic cysts in each kidney. Partial right hemicolectomy wit h right lower quadrant ileocolic anastomosis. Segment of the immediately more distal colon extends in to a wide mouthed infraumbilical ventral hernia. Also along the proximal remaining colon is unchanged 1.6 cm macroscopic fat attenuation lesion with thin peripheral rim of soft tissue density consistent with sequela of fat necrosis/epiploic appendagitis. No bowel obstruction. There several diverticula along the descending and sigmoid colon with inflammatory stranding surrounding a few diverticula at t he sigmoid colon consistent with diverticulitis. No abscess, free intraperitoneal gas or fluid. Bladd er is normal. The uterus is not identified and has likely been surgically resected. No pathologically enlarged abdominal or pelvic lymphadenopathy. Mild thoracic and lumbar spondylosis. 3 mm anterolisth esis L4 on L5 with associated severe bilateral facet osteoarthritis. IMPRESSION: 1. Radiographically uncomplicated sigmoid diverticulitis. 2. Nonobstructed segment of colon extends into a [place] infraumbilical ventral hernia. Reviewed, dictated and finalized at location A. IMPRESSION: 1. Radiographically uncomplicated sigmoid diverticulitis. 2. Nonobstructed segment of colon extends into a wid[place]outh infraumbilical ventr al hernia.
[2022-04-13 03:35] LABS: Hematocrit 22.3 % (37.0-47.0); Mean Corpuscular HGB Conc 28.7 g/dl (32-36); Mean Corpuscular Hemoglobin 28.2 pg (26-34); Mean Corpuscular Volume 98.2 fl (80-100); Mean Platelet Volume 10.2 fl (7.4-10.4); Platelet Count Result 234 k/mm3 (150-375); Red Blood Count 2.27 M/mm3 (4.2-5.4); White Blood Count 9.6 K/mm3 (4.5-10.0)
[2022-04-13] MEDS: SODIUM CHLORIDE 0.9% IV 1,000 ML 999 ML IV CONT (03:46)
[2022-04-13] MEDS: ONDANSETRON INJ 4 MG/2 ML VIAL IV PUSH (03:46)
[2022-04-13 03:48] LABS: Alanine Aminotransferase 21 U/L (6-35); Alkaline Phosphatase 65 U/L (38-126); Anion Gap 9 mmol/L (8-16); Aspartate Amino Transferase 27 U/L (14-36); Bilirubin,Total 0.2 mg/dL (0.2-1.3); Blood Urea Nitrogen 40 mg/dL (7-17); Calcium 8.7 mg/dL (8.4-10.2); Carbon Dioxide 22 mmol/L (22-30); Chloride 110 mmol/L (98-107); Estimated CRCL calculation 30 ml/min; Estimated Glomerular Filt Rate 32; Glucose 171 mg/dL (65-110); Potassium 4.2 mmol/L (3.4-5.0); Sodium 141 mmol/L (137-145)
[2022-04-13 03:49] LABS: INR 1.1
[2022-04-13 03:50] LABS: Partial Thromboplastin Time 26.6 SECONDS (22.3-36.8)
[2022-04-13 03:57] LABS: Hemoglobin 6.4 g/dL (12.0-15.0)
[2022-04-13 04:02] LABS: Band Neutrophils Percent 4 % (0-6); Lymphocytes Absolute Manual 1.72 K/mm3 (1.1-4.5); Monocytes Absolute Manual 0.09 K/mm3 (0.1-0.90); Monocytes Percent Manual 1 % (3-9); Neutrophils Absolute Manual 7.77 K/mm3 (1.7-7.2); Neutrophils Percent Manual 77 % (46-73); Platelet Estimate Adequate (Adequate); Total Cells Counted 100
[2022-04-13 04:03] LABS: Anisocytosis 1+ (NORMAL); Macrocytosis 1+ (NORMAL)
[2022-04-13 04:04] LABS: Poikilocytosis 1+ (NORMAL); Schistocytes None Seen (NORMAL); Tear Drop Cells 1+ (NORMAL)
[2022-04-13 04:05] LABS: Hypochromasia 3+ (NORMAL)
--- NOTE | 2022-04-13 04:54 | ED.GENADULT ---
HPI - General Adult General Chief complaint: Nausea/Vomiting/Diarrhea Stated complaint: GI Bleed Time Seen by Provider: 04/13/22 03:07 History of Present Illness HPI narrative: 71-year-old female presented emergency department for evaluation of bright red blood per rectum. Patient states that on the morning of the the patient passed some blood with her stool. Patient states she then passed a normal brown stool. Patient states that then at 9 PM she had multiple episodes of clotted bright red blood. Patient does have a prior history of colon cancer and did have colon resection by Dr. Cartwright in 2019. Patient used to follow-up with Dr. Carmichael for GI but now follows up with Dr. Huston. Related Data Home Medications Medication Instructions Recorded Confirmed clopidogrel 75 mg tablet (Plavix) 75 mg PO QPM 07/10/19 03/17/22 aspirin 81 mg chewable tablet 81 mg PO QPM 07/13/19 03/17/22 cyanocobalamin (vitamin B-12) 1,000 mcg PO DAILY 07/13/19 03/17/22 1,000 mcg tablet (Vitamin B-12) furosemide 20 mg tablet (Lasix) 20 mg PO DAILY 07/13/19 03/17/22 metoprolol tartrate 25 mg tablet 12.5 mg PO QPM 07/13/19 03/17/22 omeprazole 40 mg capsule,delayed 40 mg PO DAILY 07/13/19 03/17/22 release valsartan 40 mg tablet 40 mg PO QPM 07/13/19 03/17/22 allopurinol 300 mg tablet 300 mg PO DAILY 12/17/21 03/17/22 colestipol 1 gram tablet (Colestid) 1 g PO DAILY PRN Loose Stool 12/17/21 03/17/22 Saccharomyces boulardii 250 mg 250 mg PO BID 02/16/22 03/17/22 capsule (Florastor) Allergies Allergy/AdvReac Type Severity Reaction Status Date / Time fenofibrate Allergy Intermediate ITCHING, Verified 04/13/22 03:49 HIVES ciprofloxacin Allergy Unknown Unknown Verified 04/13/22 03:49 Penicillins Allergy Unknown Unknown Verified 04/13/22 03:49 Quinolones Allergy Unknown Unknown Verified 04/13/22 03:49 ibuprofen AdvReac Unknown Nausea and Verified 04/13/22 03:49 Vomiting Review of Systems Review of Systems: CONSTITUTIONAL: Denies fever, chills, or sweats. EYES: Denies visual changes, redness, or discharge. ENT: Denies rhinorrhea, congestion, sore throat, or otalgia. CARDIOVASCULAR: Denies chest pain, palpitations, or edema. RESPIRATORY: Denies cough or dyspnea. GASTROINTESTINAL: See HPI GENITOURINARY: Denies dysuria or hematuria. SKIN: Denies rash or itching. MUSCULOSKELETAL: Denies back pain, joint pain, or myalgia. NEUROLOGIC: Denies headache, numbness, or weakness. PSYCHIATRIC: Denies anxiety or depression. [facility] Past Medical History Medical History (Updated 04/13/22 @ 06:59 by Nick Cummins MD) Abdominal pain CHF (congestive heart failure) Colon cancer Coronary artery disease CVA (cerebral vascular accident) History of colon cancer History of heart attack 2000 Hyperlipidemia Hypertension Nausea and vomiting TIA (transient ischemic attack) Surgical History Surgical History History of appendectomy History of cholecystectomy History of colon resection History of coronary artery stent placement History of hysterectomy Family History Family History Father Family history of heart disease in male family member before age 55 Cancer, bladder, neck Social History Social History Smoking status: Never smoker Second hand tobacco smoke exposure: No Smoking end date: 06/27/12 Alcohol intake: never Substance use: never Gender identity (if verbalized by the patient): Female Sexual Orientation (if Verbalized by the Patient): Straight or Heterosexual Spiritual care concerns: No Agree to blood products: Yes Exam Narrative: APPEARANCE: Well appearing, no pain, no distress, well-nourished. HEAD: normocephalic, atraumatic. EYES: PERRLA/EOMI, conjunctivae clear. NOSE: Normal no drainage NECK: Supple. No adenopathy, no masses. RESPIRATORY: Airway
[2022-04-13 05:04] LABS: SARS-CoV-2 RNA PCR Negative
[2022-04-13] MEDS: TUBING, BLOOD SET 1 EACH XX (05:30)
[2022-04-13] MEDS: SODIUM CHLORIDE 0.9% IV 250 ML 30 ML IV CONT (05:45)
[2022-04-13] MEDS: metroNIDAZOLE 500 MG/ISO 100ML 500 MG/100 ML BAG 100 MG IVPB ×2 (07:15→17:40)
--- NOTE | 2022-04-13 07:49 | ADMGEN ---
This patient, Hui Dominguez, was admitted to IMU Room 205-01. Patient/family oriented to hospital policies and general routines including ID bracelet, bed and alarms, visiting hours, pain management, procedures, bathroom and other care routines, personal items, smoking policy, room service/diet, and visiting hours. Information on how to activate the Rapid Response Team has been discussed. Patient/Family are encouraged to report perceived risks to care and to ask questions if they do not understand what they are told or what they should do.
[2022-04-13 11:34] LABS: Hematocrit 23.6 % (37.0-47.0); Mean Corpuscular HGB Conc 30.1 g/dl (32-36); Mean Corpuscular Hemoglobin 28.1 pg (26-34); Mean Corpuscular Volume 93.3 fl (80-100); Mean Platelet Volume 9.8 fl (7.4-10.4); Platelet Count Result 169 k/mm3 (150-375); Red Blood Count 2.53 M/mm3 (4.2-5.4); Red Cell Distribution Width 16.4 % (11.5-14.5); White Blood Count 7.8 K/mm3 (4.5-10.0)
[2022-04-13 11:50] LABS: Hemoglobin 7.1 g/dL (12.0-15.0)
[2022-04-13] MEDS: TUBING, BLOOD PLUM PUMP TUBING 1 EACH XX (12:39)
--- NOTE | 2022-04-13 13:14 | WPDGICN ---
Assessment and Plan Assessment and plan (1) BRBPR (bright red blood per rectum): Code(s): K62.5 - Hemorrhage of anus and rectum Status: Acute Assessment and Plan: Patient with significant lower GI bleeding. Most suspicious for diverticular bleeding. This somewhat unusual in conjunction with active diverticulitis as suggested by CT scan. Currently does not appear to be active. Plan is to transfuse patient with packed red blood cells to a stable hemoglobin. Colonoscopy is suggested but should be deferred until diverticulitis is not active as this may aggravate the infection. Will follow with you. Likely will need colonoscopy a month after discharge. If bleeding becomes more active than colonoscopy will be performed sooner. (2) Diverticulitis: Code(s): K57.92 - Diverticulitis of intestine, part unspecified, without perforation or abscess without bleeding Status: Acute Assessment and Plan: Diverticulitis suggested by CT scan performed in the emergency room. Patient does have left lower quadrant tenderness which correlates with this. Broad-spectrum antibiotics are suggested. Colonoscopy suggested in 1 month. (3) History of colon cancer: Code(s): Z85.038 - Personal history of other malignant neoplasm of large intestine Status: Acute Assessment and Plan: Patient has a history of colon cancer. Resected 2018 with right hemicolectomy. Patient has received follow-up screening colonoscopy is with anticipated colonoscopy next year. But given her recent bleeding and diverticulitis we will plan to proceed with this over the next month or so. (4) History of colon resection: Code(s): Z90.49 - Acquired absence of other specified parts of digestive tract Status: Acute GI Consult Note Consult date/time: 04/13/22 13:14 Reason for consult: Lower GI bleeding. HPI: Hui Dominguez is a 71 year old female I am asked to see for lower GI bleeding. Patient has a history of colon cancer underwent right hemicolectomy in approximately 2018. Patient is known to have had C difficile infection treated earlier this year. She has been symptom free since mid summer. She received treatment with vancomycin at that time. Patient notes recently she has had some left lower quadrant discomfort. This was tolerable. However she began to have a large amount of bright red blood per rectum yesterday. She states this was quite voluminous associated with many blood clots. Described as bright red blood. She presented to the emergency room last evening and had a significant decline in hemoglobin. She she has had no significant bleeding since admission to the hospital. She continues to have left lower quadrant tenderness. In the emergency room CT scan suggested diverticulitis. Review of Systems Review of Systems: Review of systems noncontributory. [facility] Past Medical History Medical History Abdominal pain CHF (congestive heart failure) Colon cancer Coronary artery disease CVA (cerebral vascular accident) History of colon cancer History of heart attack 1999 Hyperlipidemia Hypertension Nausea and vomiting TIA (transient ischemic attack) Surgical History Surgical History History of appendectomy History of cholecystectomy History of colon resection History of coronary artery stent placement History of hysterectomy Family History Family History Father Family history of heart disease in male family member before age 55 Cancer, bladder, neck Social History Social History (Updated 04/13/22 @ 09:17 by Ciaran Simon RN) Smoking packs per day: 1 Smoking cigarettes per day: 20.0 Years smoked: 47 Smoking pack-years: 47.00 Smoking status: Former smoker Tobacco type: cigarettes Second nesbitt
[2022-04-13 15:30] LABS: Add Urine Microscopic? YES; Appearance Urine Clear (Clear); Bacteria Urine Trace /hpf; Bilirubin Urine Negative (Negative); Blood Urine Negative (Negative); Color Urine Yellow (Yellow); Glucose Urine UA Negative (Negative); Ketones Urine Negative (Negative); Leukocyte Esterase Ur Trace LEU/UL (Negative); Mucus Urine Rare /lpf; Nitrate Urine Negative (Negative); Protein Urine Negative (Negative); Specific Grav Ur 1.014 (1.001-1.035); Squamous Epithelial Cell Urine Rare /hpf (Few); Urobilinogen Urine Negative mg/dL (<2.0)
[2022-04-13] MEDS: SODIUM CHLORIDE 0.9% IV 1,000 ML 100 ML IV CONT ×2 (17:41→18:32)
--- NOTE | 2022-04-13 17:52 | PM.IMHP ---
H&P: HPI History of Present Illness Date/Time: 04/13/22 17:52 Chief Complaint: Bright red blood per rectum Narrative: ED-HPI narrative: 71-year-old female presented emergency department for evaluation of bright red blood per rectum.? Patient states that on the morning of the the patient passed some blood with her stool.? Patient states she then passed a normal brown stool.? Patient states that then at 9 PM she had multiple episodes of clotted bright red blood. Patient does have a prior history of colon cancer and did have colon resection by Dr. Cartwright in 2019.? Patient used to follow-up with Dr. Carmichael for GI but now follows up with Dr. Huston. 71-year-old female with history of colon cancer status post resection in 2019 presented with bright red blood from rectum, he scan of the abdomen showed radiographically uncomplicated sigmoid diverticulitis. seen by GI and suspect bleeding from diverticulitis patient is being treated Flagyl for colitis, the GI recommended patient will need a colonoscopy once her clinical symptoms have improved unless patient is profusely bleeding, patient is taking dual anti-platelet will hold Plavix patient cardiac stents placed 22yrs ago and continue aspirin as patient has rectal bleeding, patient states is feeling much better compared to when she arrived denies any abdominal pain nausea or vomiting fever or chills, continue to monitor H and further recommendation to follow Review of Systems Review of Systems: Review of systems noncontributory. [facility] Past Medical History Medical History Abdominal pain CHF (congestive heart failure) Colon cancer Coronary artery disease CVA (cerebral vascular accident) History of colon cancer History of heart attack 1999 Hyperlipidemia Hypertension Nausea and vomiting TIA (transient ischemic attack) Surgical History Surgical History History of appendectomy History of cholecystectomy History of colon resection History of coronary artery stent placement History of hysterectomy Family History Family History Father Family history of heart disease in male family member before age 55 Cancer, bladder, neck Social History Social History (Updated 04/13/22 @ 09:17 by Ciaran Simon RN) Smoking packs per day: 1 Smoking cigarettes per day: 20.0 Years smoked: 47 Smoking pack-years: 47.00 Smoking status: Former smoker Tobacco type: cigarettes Second hand tobacco smoke exposure: No Smoking end date: 06/27/12 Alcohol intake: never Substance use: never Substance use type: does not use Gender identity (if verbalized by the patient): Female Sexual Orientation (if Verbalized by the Patient): Straight or Heterosexual Spiritual care concerns: No Agree to blood products: Yes Has the Lack of Transportation Kept You From Medical Appointments or From Getting Medications?: No Within the Past 12 Months, Were You Worried Whether Your Food Would Run Out Before You Got Money to Buy More?: Never True What is Your Housing Situation Today?: I Have Housing Are You Worried That in the Next 2 Months, You May Not Have Your Own Housing to Live In?: No Do You Have Trouble Paying Your Heating Or Electricity Bill?: No Do You Have Trouble Paying For Medicines?: Yes Are You Currently Unemployed and Looking for Work?: No Highest Level of Education Completed: High School Diploma/GED Do You Have Trouble With Childcare or the Care of a Family Member?: No Meds Home Medications and Allergies Home Medications Medication Instructions Recorded Confirmed Type clopidogrel 75 mg tablet (Plavix) 75 mg PO QPM 07/10/19 04/13/22 History aspirin 81 mg chewable tablet 81 mg PO QPM 07/13/19 04/13/22 History cyanocobalamin (vitamin B-12) 1,000 mcg PO DAILY 07/13
[2022-04-13 18:05] LABS: Hematocrit 28.1 % (37.0-47.0); Hemoglobin 8.6 g/dL (12.0-15.0)
[2022-04-13] MEDS: VALSARTAN 40 MG TABLET PO (18:31)
[2022-04-13] MEDS: ASPIRIN 81 MG CHEWABLE TABLET PO (18:32)
[2022-04-13] MEDS: METOPROLOL TARTRATE 12.5 MG TABLET PO (18:32)
[2022-04-14] VITALS (9 sets, daily range): BP systolic 121–148; BP diastolic 56–69; PULSE 65–77; RESP 14–18; TEMP 36.4–36.6; O2SAT 99–100
[2022-04-14] MEDS: metroNIDAZOLE 500 MG/ISO 100ML 500 MG/100 ML BAG 100 MG IVPB ×2 (01:30→06:35)
[2022-04-14] MEDS: SODIUM CHLORIDE 0.9% IV 1,000 ML 100 ML IV CONT (05:15)
[2022-04-14 05:46] LABS: Hematocrit 25.7 % (37.0-47.0); Hemoglobin 7.7 g/dL (12.0-15.0); Mean Corpuscular Volume 90.2 fl (80-100); Platelet Count Result 151 k/mm3 (150-375); Red Blood Count 2.85 M/mm3 (4.2-5.4); White Blood Count 5.7 K/mm3 (4.5-10.0)
[2022-04-14 06:14] LABS: Iron 47 ug/dL (37-170)
[2022-04-14 06:17] LABS: Anion Gap 2 mmol/L (8-16); Blood Urea Nitrogen 24 mg/dL (7-17); Calcium 8.5 mg/dL (8.4-10.2); Carbon Dioxide 21 mmol/L (22-30); Chloride 115 mmol/L (98-107); Estimated CRCL calculation 44 ml/min; Estimated Glomerular Filt Rate 49; Glucose 88 mg/dL (65-110); Magnesium 1.8 mg/dL (1.6-2.3); Potassium 4.2 mmol/L (3.4-5.0); Sodium 138 mmol/L (137-145)
[2022-04-14 06:25] LABS: Percent Iron Saturation 14 % (20-50)
[2022-04-14 07:07] LABS: Folic Acid > 20.0 ng/mL (2.76->20)
--- NOTE | 2022-04-14 07:54 | WPDGIPROGNO ---
Progress Note: A&P Assessment and Plan (1) BRBPR (bright red blood per rectum): Code(s): K62.5 - Hemorrhage of anus and rectum Status: Acute Assessment and Plan: Patient's lower GI bleeding has stopped. I suspect this was from diverticular disease. Plan is for colonoscopy but she is would suggest deferring this for several weeks because of active diverticulitis on CT scan. Plan is to increase diet. Okay for discharge schedule outpatient colonoscopy in several weeks. If bleeding persists she should return to the hospital and more urgent colonoscopy will be performed. Hemoglobin currently stable after transfusion. (2) Anemia: Qualifiers: Anemia type: unspecified type Qualified Code(s): D64.9 - Anemia, unspecified Code(s): D64.9 - Anemia, unspecified Status: Acute Assessment and Plan: Patient with anemia likely from blood loss. Currently stable no additional bleeding noted is suspected was primarily from diverticular bleeding. Plan is for colonoscopy within the next several weeks. Hemoglobin should be monitored weekly after discharge. (3) Diverticulitis: Code(s): K57.92 - Diverticulitis of intestine, part unspecified, without perforation or abscess without bleeding Status: Acute Assessment and Plan: Patient's left lower quadrant pain has resolved. CT scan reveals sigmoid diverticulitis. Plan is for colonoscopy but this will be deferred for several weeks she should be given 1 week course of antibiotics. Currently on oral Flagyl and this should continue for 1 week after discharge. (4) History of colon cancer: Code(s): Z85.038 - Personal history of other malignant neoplasm of large intestine Status: Acute Assessment and Plan: Patient has a history of colon cancer resected 2019. Most recent colonoscopy revealed no evidence of recurrence. Plan is for colonoscopy to assess in several weeks. Originally was scheduled to be performed next year. Subjective Date/time seen: 04/14/22 07:54 Patient alert comfortable this morning. Anxious to go home. No longer with left lower quadrant abdominal pain she states she is pain free. Tolerating liquids without difficulty. No additional bleeding per rectum. Review of Systems Review of Systems: Review of systems noncontributory. Exam Narrative: Physical exam reveals patient to be alert. Vital signs stable. HEENT exam is unremarkable. Patient is anicteric. Lungs are clear to auscultation and percussion. Heart is without murmur or extra sounds. Abdomen is obese. Bowel sounds present soft nontender with no masses. Digital rectal exam deferred at this time. Objective Data Vital Signs Vital Signs: Vital Signs - 24 hr 04/13/22 08:00 04/13/22 10:00 04/13/22 12:21 Temperature 97 F L 97.4 F L Pulse Rate 74 65 77 Respiratory Rate 20 18 Blood Pressure 100/43 L 119/72 Pulse Oximetry 100 100 Oxygen Delivery 04/13/22 12:36 04/13/22 12:00 04/13/22 12:00 Temperature 97.2 F L Pulse Rate 69 77 69 Respiratory Rate 18 18 Blood Pressure 105/72 Pulse Oximetry 100 100 Oxygen Delivery Room Air 04/13/22 12:00 04/13/22 14:00 04/13/22 16:09 Temperature 97.2 F L 97.5 F L Pulse Rate 66 63 65 Respiratory Rate 10 L 18 Blood Pressure 113/64 120/58 L Pulse Oximetry 100 100 Oxygen Delivery 04/13/22 16:38 04/13/22 16:00 04/13/22 16:00 Temperature 97.5 F L Pulse Rate 65 68 Respiratory Rate 20 Blood Pressure 120/58 L Pulse Oximetry 100 Oxygen Delivery Room Air 04/13/22 18:00 04/13/22 20:00 04/14/22 00:00 Temperature 97.9 F 97.6 F Pulse Rate 75 82 72 Respiratory Rate 18 18 Blood Pressure 122/92 H 139/62 Pulse Oximetry 100 99 Oxygen Delivery 04/13/22 20:00 04/13/22 22:00 04/14/22 00:00 Temperature Pulse Rate 70 83 73 Respiratory Rate Blood Pressure Pulse Oximetry Oxygen Delivery 04/13/22 20:00 04/14/22 00:00
[2022-04-14] MEDS: FUROSEMIDE 20 MG TABLET PO (08:45)
[2022-04-14] MEDS: CYANOCOBALAMIN 1,000 MCG TABLET 1000 MCG PO (08:45)
[2022-04-14] MEDS: PANTOPRAZOLE 40 MG TABLET PO (08:45)
[2022-04-14] MEDS: allopurinoL 300 MG TABLET PO (08:45)
[2022-04-14] MEDS: SACCHAROMYCES BOULARDII 250 MG CAPSULE PO ×2 (08:45→17:02)
--- NOTE | 2022-04-14 09:32 | PM.IMPN ---
Subjective Date/time seen: 04/14/22 09:32 Objective Data Vital Signs Vital Signs: Vital Signs - 24 hr 04/13/22 10:00 04/13/22 12:21 04/13/22 12:36 Temperature 36.3 C L 36.2 C L Pulse Rate 65 77 69 Respiratory Rate 18 18 Blood Pressure 119/72 105/72 Pulse Oximetry 100 100 Oxygen Delivery 04/13/22 12:00 04/13/22 12:00 04/13/22 12:00 Temperature 36.2 C L Pulse Rate 77 69 66 Respiratory Rate 18 10 L Blood Pressure 113/64 Pulse Oximetry 100 100 Oxygen Delivery Room Air 04/13/22 14:00 04/13/22 16:09 04/13/22 16:38 Temperature 36.4 C L 36.4 C L Pulse Rate 63 65 65 Respiratory Rate 18 20 Blood Pressure 120/58 L 120/58 L Pulse Oximetry 100 100 Oxygen Delivery 04/13/22 16:00 04/13/22 16:00 04/13/22 18:00 Temperature Pulse Rate 68 75 Respiratory Rate Blood Pressure Pulse Oximetry Oxygen Delivery Room Air 04/13/22 20:00 04/14/22 00:00 04/13/22 20:00 Temperature 36.6 C 36.4 C Pulse Rate 82 72 70 Respiratory Rate 18 18 Blood Pressure 122/92 H 139/62 Pulse Oximetry 100 99 Oxygen Delivery 04/13/22 22:00 04/14/22 00:00 04/13/22 20:00 Temperature Pulse Rate 83 73 Respiratory Rate Blood Pressure Pulse Oximetry Oxygen Delivery Room Air 04/14/22 00:00 04/14/22 02:00 04/13/22 21:48 Temperature Pulse Rate 68 Respiratory Rate Blood Pressure Pulse Oximetry 99 Oxygen Delivery Room Air Room Air 04/14/22 04:00 04/14/22 04:00 04/14/22 04:00 Temperature 36.4 C Pulse Rate 65 71 Respiratory Rate 16 Blood Pressure 148/64 H Pulse Oximetry 100 Oxygen Delivery Room Air 04/14/22 06:00 04/14/22 08:00 04/14/22 08:00 Temperature 36.6 C Pulse Rate 65 68 Respiratory Rate 16 Blood Pressure 127/69 Pulse Oximetry 100 Oxygen Delivery Room Air Intake/Output Intake/Output: Intake & Output 04/11/22 04/12/22 04/13/22 04/14/22 23:59 23:59 23:59 23:59 Intake Total 4087 1100 Output Total 350 401 Balance 3737 699 Meds/Results Medications: Active Medications Generic Name Dose Route Start Last Admin Trade Name Freq PRN Reason Stop Dose Admin Allopurinol 300 mg 04/14/22 09:00 04/14/22 08:45 Allopurinol 300 Mg Tablet PO 300 mg DAILY MURRAY Administration Aspirin 81 mg 04/13/22 18:00 04/13/22 18:32 Aspirin 81 Mg Chewable Tablet PO 81 mg QPM MURRAY Administration Colestipol HCl 1 gm 04/13/22 17:54 Colestipol Hcl 1 Gm Tablet PO DAILY PRN Loose Stool Cyanocobalamin 1,000 mcg 04/14/22 09:00 04/14/22 08:45 Cyanocobalamin 1,000 Mcg Tablet PO 1,000 mcg DAILY MURRAY Administration Furosemide 20 mg 04/14/22 09:00 04/14/22 08:45 Furosemide 20 Mg Tablet PO 20 mg DAILY MURRAY Administration Sodium Chloride 1,000 mls @ 100 mls/hr 04/13/22 05:45 04/14/22 05:15 Normal Saline Iv IV CONT 100 mls/hr .Q10H MURRAY Administration Metoprolol Tartrate 12.5 mg 04/13/22 18:00 04/13/22 18:32 Metoprolol Tartrate 12.5 Mg Tablet PO 12.5 mg QPM MURRAY Administration Metronidazole 500 mg 04/14/22 14:00 Metronidazole 250 Mg Tablet PO Q8HR [facility] Ondansetron HCl 4 mg 04/13/22 05:43 Ondansetron Inj 4 Mg/2 Ml Vial IV PUSH Q4H PRN Nausea Pantoprazole Sodium 40 mg 04/14/22 09:00 04/14/22 08:45 Pantoprazole 40 Mg Tablet PO 05/14/22 08:59 40 mg DAILY MURRAY Administration Saccharomyces Boulardii 250 mg 04/14/22 09:00 04/14/22 08:45 Saccharomyces Boulardii 250 Mg Capsule PO 250 mg BID MURRAY Administration Valsartan 40 mg 04/13/22 18:00 04/13/22 18:31 Valsartan 40 Mg Tablet PO 40 mg QPM MURRAY Administration Radiology Results: ITS Impressions Abdomen/Pelvis CT 04/13/22 06:50 IMPRESSION: 1. Radiographically uncomplicated sigmoid diverticulitis. 2. Nonobstructed segment of colon extends into a [place] infraumbilical ventral hernia. Labs Labs: Laboratory Results - last 24 hr 10
[2022-04-14] MEDS: cefTRIAXone 2 GM in SODIUM CHLORIDE 0.9% IV 100 ML 200 ML IVPB (13:34)
--- NOTE | 2022-04-14 15:21 | PM.DS ---
DS: Admitting Diagnosis Discharge Date 04/14/22 Admitting Diagnosis Gastrointestinal bleeding DS: Discharge Diagnosis Discharge Diagnosis (1) BRBPR (bright red blood per rectum): Code(s): K62.5 - Hemorrhage of anus and rectum Status: Acute Assessment and Plan: Presented with bright red blood per rectum. Previous history of colon cancer s/p resection in 2019. CT abdomen pelvis with several diverticula along the descending and sigmoid colon with inflammatory stranding surrounding a few diverticula of the sigmoid colon consistent with diverticulitis. Metronidazole started for treatment and patient has had symptomatic improvement with no more episodes of bright red blood per rectum or melena. Gastroenterology has seen the patient and recommends outpatient colonoscopy also stating the patient is ok for discharge. Hemoglobin and hematocrit have remained stable since transfusion. Patient is anxious to be discharge and agrees to have follow up with primary care physician by 04/19/22. (2) Anemia: Qualifiers: Anemia type: unspecified type Qualified Code(s): D64.9 - Anemia, unspecified Code(s): D64.9 - Anemia, unspecified Status: Acute Assessment and Plan: Iron studies within range. B12 and folate normal. Etiology of chronic anemia unclear, but acute worsening of anemia is likely secondary to GIB. Hx of cardiac stent 22 years ago and was on plavix and aspirin. Plavix has been held and aspirin continued. Will need to complete colonoscopy with gastroenterology one month after discharge or sooner if bleeding returns. (3) Diverticulitis: Code(s): K57.92 - Diverticulitis of intestine, part unspecified, without perforation or abscess without bleeding Status: Acute Assessment and Plan: Now without abdominal pain. Clinically improved. Per chart review, patient has tolerated third generation cephalosporin in the past. This was trialed while hospitalized and the patient tolerated ceftriaxone without issue. Will plan to discharge with cefpodoxime and metronidazole to complete a total of 10 days treatment. -Continue metronidazole through 03/24/2022 -Will start cefpodoxime to continue through 03/24/22 -Probiotic advised (4) Hypertension: Code(s): I10 - Essential (primary) hypertension Status: Acute Assessment and Plan: BP was initially soft on presentation but after transfusion antihypertensive medicdations were given and blood pressure remained controlled without hypotension. Continue home medications. (5) Coronary artery disease: Qualifiers: Coronary Disease-Associated Artery/Lesion type: unspecified vessel or lesion type [place] vs. transplanted heart: [place] heart Associated angina: without angina Qualified Code(s): I25.10 - Atherosclerotic heart disease of [place] coronary artery without angina pectoris Code(s): I25.10 - Atherosclerotic heart disease of [place] coronary artery without angina pectoris Status: Chronic Assessment and Plan: Hx of cardiac stent 22 years ago and has been on aspirin and plavix. Will discontinue plavix for now and defer to patient's PCP to restart this medication. Will continue aspirin and statin. DS: Summary Hospital Course Reason for hospitalization: Bright Red Blood Per Rectum on exam Hospital Course: 71F with a past medical history of myocardial infarction s/p percutaneous intervention in 1999, colon cancer s/p hemicolectomy 2019, coronary artery disease, hypertension, c. diff, recurrent, complicated urinary tract infections who presented to the emergency department with bright red blood per rectum that happened once followed by a normal bowel movement and then more episodes of clots passed per rectum. Digital rectal exam in the emergency department showed blood clots. CT abdomen pelvis showed diverticulitis, so due to patient reported penicillin, fluoroquinolon
[2022-04-14 15:43] LABS: Hematocrit 26.4 % (37.0-47.0); Hemoglobin 8.1 g/dL (12.0-15.0)
[2022-04-14] MEDS: metroNIDAZOLE 250 MG TABLET 500 MG PO (16:57)
[2022-04-14] MEDS: METOPROLOL TARTRATE 12.5 MG TABLET PO (17:02)
[2022-04-14] MEDS: VALSARTAN 40 MG TABLET PO (17:02)
[2022-04-14] MEDS: ASPIRIN 81 MG CHEWABLE TABLET PO (17:02)
== END 2022-04-14 17:37 | disposition home or self-care (01) | DRG 378 ==
LOC: ANHED 03:40 → ANHIMU 06:52
PROVIDERS: Family Medicine; Internal Medicine Gastroenterology; Admitting Provider Internal Medicine; Emergency Provider Emergency Medicine; PCP Family Medicine Sports Medicine; Visit Provider Family Medicine
DX: K57.33 Diverticulitis of large intestine without perforation or abscess with bleeding (principal); D62 Acute posthemorrhagic anemia; E78.5 Hyperlipidemia, unspecified; I25.10 Atherosclerotic heart disease of native coronary artery without angina pectoris; I25.2 Old myocardial infarction; I11.0 Hypertensive heart disease with heart failure; I50.9 Heart failure, unspecified; Z90.710 Acquired absence of both cervix and uterus; Z87.891 Personal history of nicotine dependence; Z85.038 Personal history of other malignant neoplasm of large intestine; Z20.822 Contact with and (suspected) exposure to COVID-19; Z90.49 Acquired absence of other specified parts of digestive tract; Z95.5 Presence of coronary angioplasty implant and graft; Z79.82 Long term (current) use of aspirin; Z88.0 Allergy status to penicillin; Z86.73 Personal history of transient ischemic attack (TIA), and cerebral infarction without residual deficits; Z88.1 Allergy status to other antibiotic agents; Z79.02 Long term (current) use of antithrombotics/antiplatelets
CPT/HCPCS: 36415; 36430; 74176; 80048; 80053; 81001; 82607; 82728; 82746; 83540; 83550; 83735; 85014; 85018; 85025; 85027; 85610; 85730; 86850; 86900; 86901; 86920; 87086; 87088; 96361; 96374; 99285; A9270; C9803; J0696; J2405; J7030; J7050; P9016; U0003; U0005

== ENCOUNTER 2022-04-22 13:35 | Emergency (ER) | payer MEDICARE, OTHER, SELFPAY ==
[2022-04-22] VITALS (19 sets, daily range): BP systolic 105–165; BP diastolic 52–88; PULSE 68–105; RESP 12–24; TEMP 36.1; O2SAT 98–100
--- NOTE | ~2022-04-22 | XR_ITS ---
XR chest 1V 04/22/2022 14:22 Indication: Shortness of breath and weakness Procedure: AP view of the chest Comparison: 02/06/2018 Findings: Bibasilar infiltrates may represent atelectasis or pneumonia. No pleural effusion or pneumo thorax. No acute osseous abnormality. Impression: 1: Bibasilar infiltrates may represent atelectasis or pneumonia. Reviewed, dictated and finalized at location B. Impression: 1: Bibasilar infiltrates may represent atelectasis or pneumonia.
--- NOTE | ~2022-04-22 | CT_ITS ---
EXAMINATION: CTA chest PE protocol DATE: 04/22/2022 17:47 INDICATION: Shortness of breath, dyspnea on exertion TECHNIQUE: Computed tomography angiography (CTA) of the chest was performed with 100 mL Omnipaque-350 intravenous contrast timed to evaluate the pulmonary arteries. Coronal maximum intensity projection 3D-reconstructions were created by the technologist. Automated exposure control and iterative reconst ruction technique were employed. Exam dose: 468.98 mGy-cm total exam DLP. COMPARISON: 04/22/2022 AP chest FINDINGS: There is diagnostic contrast enhancement of the pulmonary arteries and no evidence of pulmo nary embolism. No thoracic aortic aneurysm or dissection. Heart size is within normal range. No pericardial or pleural effusion. There is calcified substernal thyroid goiter. Minimal bilateral lower lobe dependent atelectasis. No pulmonary infiltrate or consolidation or suspi cious pulmonary mass lesion. Mild emphysematous changes. No suspicious osteolytic or osteoblastic lesions. IMPRESSION: No evidence of pulmonary embolism Reviewed, dictated and finalized at Location [facility]. Reviewed, dictated and finalized at location A.
--- NOTE | 2022-04-22 13:59 | ECG_ITS ---
Measurements Intervals [place] Rate: 86 P: 36 TN: 169 QRS: -20 QRSD: 84 T: 17 QT: 354 QTc: 425 Interpretive Statements SINUS RHYTHM LOW QRS VOLTAGE IN PRECORDIAL LEADS [QRS DEFLECTION < 1.0 mV IN CHEST LEADS] BASELINE ARTIFACT PRESENT NO PREVIOUS ECG AVAILABLE FOR COMPARISON Electronically Signed On 04-22-2022 14:36:34 CDT by Toney Godoy M.D.
[2022-04-22 14:25] LABS: Basophils Absolute Auto 0.1 K/mm3 (0.0-0.1); Eosinophils Absolute Auto 0.2 K/mm3 (0-0.3); Eosinophils Percent Auto 3.3 % (0-4.4); Hematocrit 31.5 % (37.0-47.0); Hemoglobin 9.3 g/dL (12.0-15.0); Immature Granulocyte Absolute 0.02 K/mm3 (0.00-0.031); Immature Granulocyte Percent A 0.4 % (0-0.5); Lymphocytes Absolute Auto 1.15 K/mm3 (0.9-3.2); Mean Corpuscular HGB Conc 29.5 g/dl (32-36); Mean Corpuscular Hemoglobin 27.4 pg (26-34); Mean Corpuscular Volume 92.6 fl (80-100); Mean Platelet Volume 9.6 fl (7.4-10.4); Monocytes Absolute Auto 0.3 K/mm3 (0.1-0.6); Monocytes Percent Auto 6.9 % (2.6-8.5); Neutrophils Absolute Auto 3.1 K/mm3 (1.3-6.7); Neutrophils Percent Auto 64.4 % (45.5-73.1); Platelet Count Result 390 k/mm3 (150-375); Red Cell Distribution Width 17.2 % (11.5-14.5); White Blood Count 4.8 K/mm3 (4.5-10.0)
[2022-04-22 14:35] LABS: INR 1.1; Prothrombin Time 13.8 Seconds (11.1-14.7)
[2022-04-22 14:36] LABS: Alanine Aminotransferase 24 U/L (6-35); Albumin Level 3.5 g/dL (3.5-5.1); Alkaline Phosphatase 88 U/L (38-126); Anion Gap 14 mmol/L (8-16); Aspartate Amino Transferase 37 U/L (14-36); Bilirubin,Total 0.3 mg/dL (0.2-1.3); Blood Urea Nitrogen 36 mg/dL (7-17); Calcium 9.2 mg/dL (8.4-10.2); Carbon Dioxide 19 mmol/L (22-30); Chloride 106 mmol/L (98-107); Estimated CRCL calculation 30 ml/min; Estimated Glomerular Filt Rate 32; Glucose 206 mg/dL (65-110); Lipase 167 U/L (23-300); Potassium 3.9 mmol/L (3.4-5.0); Sodium 139 mmol/L (137-145)
[2022-04-22 14:47] LABS: NT Pro B Type Natriuretic Pept 270 pg/mL (5-100); Troponin I < 0.012 ng/mL (0.000-0.034)
[2022-04-22 14:52] LABS: Partial Thromboplastin Time < 20.0 SECONDS (22.3-36.8)
[2022-04-22 15:04] LABS: Anisocytosis 1+ (NORMAL); Hypochromasia 1+ (NORMAL); Platelet Estimate Adequate (Adequate); Poikilocytosis 1+ (NORMAL)
[2022-04-22 15:05] LABS: Schistocytes None Seen (NORMAL)
--- NOTE | 2022-04-22 16:56 | ED.SOB ---
HPI - SOB/Dyspnea General Chief Complaint: Shortness of Breath/Dyspnea Stated Complaint: SOB Time Seen by Provider: 04/22/22 16:11 Source: patient and old records reviewed Mode of arrival: ambulatory Limitations: no limitations History of Present Illness HPI Narrative: Patient is a 71 y/o female who presents to the ED with c/o shortness of breath. Patient reports she was recently admitted to the hospital on 04/13 through 04/14 for diverticulitis and rectal bleeding requiring blood transfusions. She is still taking antibiotics. She states she has felt generally weak with decreased energy since returning home. She also reports anytime she tries to ambulate or move around, she develops shortness of breath and her heart starts to race. Denies any at rest. Denies chest pain. Denies BLE pain or edema. Denies pleuritic pain. She has not followed with her primary care doctor since being released from the hospital. Denies any further abdominal pain, rectal bleeding, nausea, vomiting, fever, cough, cold symptoms. Related Data Home Medications Medication Instructions Recorded Confirmed aspirin 81 mg chewable tablet 81 mg PO QPM 07/13/19 04/13/22 cyanocobalamin (vitamin B-12) 1,000 mcg PO DAILY 07/13/19 04/13/22 1,000 mcg tablet (Vitamin B-12) furosemide 20 mg tablet (Lasix) 20 mg PO DAILY 07/13/19 04/13/22 metoprolol tartrate 25 mg tablet 12.5 mg PO QPM 07/13/19 04/13/22 omeprazole 40 mg capsule,delayed 40 mg PO DAILY 07/13/19 04/13/22 release valsartan 40 mg tablet 40 mg PO QPM 07/13/19 04/13/22 allopurinol 300 mg tablet 300 mg PO DAILY 12/17/21 04/13/22 colestipol 1 gram tablet (Colestid) 1 g PO DAILY PRN Loose Stool 12/17/21 04/13/22 Saccharomyces boulardii 250 mg 250 mg PO BID 02/16/22 04/13/22 capsule (Florastor) zolpidem 5 mg tablet 5 mg PO HS 04/13/22 04/13/22 Allergies Allergy/AdvReac Type Severity Reaction Status Date / Time fenofibrate Allergy Intermediate ITCHING, Verified 04/22/22 16:43 HIVES ciprofloxacin Allergy Unknown Unknown Verified 04/22/22 16:43 Penicillins Allergy Unknown Unknown Verified 04/22/22 16:43 Quinolones Allergy Unknown Unknown Verified 04/22/22 16:43 ibuprofen AdvReac Unknown Nausea and Verified 04/22/22 16:43 Vomiting Review of Systems Review of Systems: CONSTITUTIONAL: Reports decreased energy. Denies fever, chills, or sweats. ENT: Denies rhinorrhea, congestion, sore throat. CARDIOVASCULAR: Reports palpitations. Denies chest pain or BLE edema. RESPIRATORY: Reports dyspnea, LÓPEZ. Denies cough. GASTROINTESTINAL: Denies abdominal pain, nausea, vomiting, rectal bleeding, or diarrhea. MUSCULOSKELETAL: Denies BLE pain. NEUROLOGIC: Reports generalized weakness. Denies headache, numbness, or focal weakness. All systems reviewed & are unremarkable except as noted in HPI and below PMFSH Past Medical History Medical History Abdominal pain CHF (congestive heart failure) Colon cancer Coronary artery disease CVA (cerebral vascular accident) History of colon cancer History of heart attack 1999 Hyperlipidemia Hypertension Nausea and vomiting TIA (transient ischemic attack) Surgical History Surgical History History of appendectomy History of cholecystectomy History of colon resection History of coronary artery stent placement History of hysterectomy Family History Family History Father Family history of heart disease in male family member before age 55 Cancer, bladder, neck Social History Social History Smoking packs per day: 1 Smoking cigarettes per day: 20.0 Years smoked: 47 Smoking pack-years: 47.00 Smoking status: Former smoker Tobacco type: cigarettes Second hand tobacco smoke exposure: No Smoking end date: 06/27/12
[2022-04-22 17:49] LABS: SARS-CoV-2 RNA PCR Negative
[2022-04-22] MEDS: SODIUM CHLORIDE 0.9% IV 500 ML 999 ML IV CONT (18:01)
[2022-04-22 18:29] LABS: Add Urine Microscopic? YES; Appearance Urine Clear (Clear); Bacteria Urine Trace /hpf; Bilirubin Urine Negative (Negative); Blood Urine Negative (Negative); Color Urine Yellow (Yellow); Glucose Urine UA Negative (Negative); Ketones Urine Negative (Negative); Leukocyte Esterase Ur Trace LEU/UL (Negative); Mucus Urine Rare /lpf; Nitrate Urine Negative (Negative); Protein Urine Negative (Negative); RBC Urine 0-2 /hpf (0-2); Specific Grav Ur 1.025 (1.001-1.035); Squamous Epithelial Cell Urine Rare /hpf (Few); Urobilinogen Urine Negative mg/dL (<2.0); WBC Urine 0-3 /hpf
== END 2022-04-22 20:00 | disposition home or self-care (01) ==
PROVIDERS: Physician Assistant; Emergency Provider Emergency Medicine; PCP Family Medicine Sports Medicine
DX: R06.00 Dyspnea, unspecified (principal); N28.9 Disorder of kidney and ureter, unspecified; Z20.822 Contact with and (suspected) exposure to COVID-19; I50.9 Heart failure, unspecified; I25.10 Atherosclerotic heart disease of native coronary artery without angina pectoris; I25.2 Old myocardial infarction; E78.5 Hyperlipidemia, unspecified; I11.0 Hypertensive heart disease with heart failure; Z86.73 Personal history of transient ischemic attack (TIA), and cerebral infarction without residual deficits; Z90.49 Acquired absence of other specified parts of digestive tract; Z95.5 Presence of coronary angioplasty implant and graft; Z90.710 Acquired absence of both cervix and uterus; Z87.891 Personal history of nicotine dependence; Z79.82 Long term (current) use of aspirin
CPT/HCPCS: 36415; 71045; 71275; 80053; 81001; 83690; 83880; 84484; 85025; 85610; 85730; 93005; 96360; 99284; J7040; Q9967; U0003; U0005

== ENCOUNTER 2022-05-05 08:00 | Outpatient (CLI) | payer MEDICARE, OTHER, SELFPAY ==
--- NOTE | ~2022-05-05 | MR_ITS ---
EXAMINATION: MR MRCP wo/w con/w 3D wo ind DATE: 05/05/2022 09:22 INDICATION: Enlarging cystic lesion in the body of the pancreas TECHNIQUE: Magnetic resonance imaging (MRI) of the abdomen was performed without and with intravenous contrast. Sequences included coronal T2-weighted SS-FSE ARC, coronal T2-weighted FS SS-FSE, coronal T2-weighted 2D FS FIESTA, Water:Coronal LAVA-Flex, sagittal T2-weighted SS-FSE ARC, axial SSFSE ARC, axial 3D DualEcho, axial DWI B=600, axial T1-weighted LAVA, FAT:Coronal LAVA-Flex, and coronal in and opposed phase LAVA-Flex. Thick-slab T2-weighted FRFSE-XL images were obtained for magnetic resonance cholangiopancreatography (MRCP). Maximum intensity projection 3-D reconstructions of the volumetric data were created by the technologist. Postcontrast sequences included a time course of axial T1-weig hted LAVA, FAT:Coronal LAVA-Flex, coronal in and opposed phase LAVA-Flex, and Water:Coronal LAVA-Flex . COMPARISON: CTs dated 10/28/2021 and 04/13/2022 CONTRAST: Multihance, 18 cc FINDINGS: ABDOMEN MRI: The liver, spleen, and adrenal glands are normal. The gallbladder is surgically absent. The previously described cystic lesion in the body of the pancreas is not identified. The pancreas is normal in appearance. Cysts of the kidneys measure up to 4 cm on the left. There are hemorrhagic cys ts of the kidneys which measure up to 8 mm. On the right. There are no pathologically enlarged abdomi nal lymph nodes. There are no dilated loops of bowel. There is a [place] ventral hernia containing nonobstructed large and small bowel. ABDOMEN MRCP: There is no intrahepatic or extrahepatic biliary dilatation. No stones or stricture are identified in the common bile duct. The pancreatic duct is normal in course and caliber. IMPRESSION: 1. Previously described cystic pancreatic lesion no longer identified, likely resolving sequela of pr ior pancreatitis. Reviewed, dictated and finalized at location B. NT CUTTER IMPRESSION: 1. Previously described cystic pancreatic lesion no longer identified, likely r esolving sequela of prior pancreatitis.
[2022-05-05 10:29] LABS: Basophils Absolute Auto 0.1 K/mm3 (0.0-0.1); Eosinophils Absolute Auto 0.1 K/mm3 (0-0.3); Hematocrit 29.3 % (37.0-47.0); Hemoglobin 8.5 g/dL (12.0-15.0); Immature Granulocyte Absolute 0.02 K/mm3 (0.00-0.031); Immature Granulocyte Percent A 0.3 % (0-0.5); Lymphocytes Percent Auto 20.2 % (18.3-44.2); Mean Corpuscular Hemoglobin 26.8 pg (26-34); Mean Corpuscular Volume 92.4 fl (80-100); Monocytes Absolute Auto 0.5 K/mm3 (0.1-0.6); Monocytes Percent Auto 7.9 % (2.6-8.5); Neutrophils Absolute Auto 4.1 K/mm3 (1.3-6.7); Neutrophils Percent Auto 69.6 % (45.5-73.1); Platelet Count Result 226 k/mm3 (150-375); Red Blood Count 3.17 M/mm3 (4.2-5.4); Red Cell Distribution Width 16.4 % (11.5-14.5)
[2022-05-05 10:40] LABS: Alanine Aminotransferase 21 U/L (6-35); Albumin Level 3.8 g/dL (3.5-5.1); Alkaline Phosphatase 78 U/L (38-126); Anion Gap 11 mmol/L (8-16); Aspartate Amino Transferase 37 U/L (14-36); Bilirubin,Total 0.4 mg/dL (0.2-1.3); Blood Urea Nitrogen 23 mg/dL (7-17); Calcium 9.7 mg/dL (8.4-10.2); Carbon Dioxide 22 mmol/L (22-30); Chloride 108 mmol/L (98-107); Estimated Glomerular Filt Rate 40; Glucose 84 mg/dL (65-110); Potassium 4.8 mmol/L (3.4-5.0); Sodium 141 mmol/L (137-145)
[2022-05-05 12:35] LABS: Iron 12 ug/dL (37-170)
[2022-05-05 12:48] LABS: Percent Iron Saturation 3 % (20-50)
[2022-05-05 13:34] LABS: Anisocytosis 1+ (NORMAL); Hypochromasia 1+ (NORMAL); Platelet Estimate Adequate (Adequate); Poikilocytosis 1+ (NORMAL); Schistocytes None Seen (NORMAL)
[2022-05-05 13:54] LABS: Folic Acid > 20.0 ng/mL (2.76->20)
[2022-05-11 14:57] LABS: Reference Lab Test Result <0.10 kU/L
== END 2022-05-05 08:01 | disposition home or self-care (01) ==
PROVIDERS: PCP Family Medicine Sports Medicine; Referring Provider Family Medicine Sports Medicine; Visit Provider Nurse Practitioner Family
DX: D64.9 Anemia, unspecified (principal); E78.5 Hyperlipidemia, unspecified; G89.29 Other chronic pain; R89.9 Unspecified abnormal finding in specimens from other organs, systems and tissues; R22.0 Localized swelling, mass and lump, head; L29.9 Pruritus, unspecified; N28.9 Disorder of kidney and ureter, unspecified; B37.0 Candidal stomatitis
CPT/HCPCS: 36415; 74183; 76376; 80053; 82607; 82746; 83540; 83550; 85025; 86001; 86003; A9577

== ENCOUNTER 2022-05-25 14:32 | Outpatient (CLI) | payer MEDICARE, OTHER, SELFPAY ==
[2022-05-25 14:51] LABS: Hematocrit 32.1 % (37.0-47.0); Hemoglobin 9.6 g/dL (12.0-15.0); Mean Corpuscular HGB Conc 29.9 g/dl (32-36); Mean Corpuscular Hemoglobin 26.4 pg (26-34); Mean Corpuscular Volume 88.2 fl (80-100); Mean Platelet Volume 9.3 fl (7.4-10.4); Platelet Count Result 264 k/mm3 (150-375); Red Blood Count 3.64 M/mm3 (4.2-5.4); Red Cell Distribution Width 16.2 % (11.5-14.5); White Blood Count 6.6 K/mm3 (4.5-10.0)
[2022-05-25 16:25] LABS: Iron 23 ug/dL (37-170)
[2022-05-25 16:29] LABS: Anion Gap 12 mmol/L (8-16); Blood Urea Nitrogen 34 mg/dL (7-17); Calcium 10.5 mg/dL (8.4-10.2); Carbon Dioxide 19 mmol/L (22-30); Chloride 110 mmol/L (98-107); Estimated Glomerular Filt Rate 28; Glucose 95 mg/dL (65-110); Lactate Dehydrogenase 230 U/L (120-246); Potassium 4.2 mmol/L (3.4-5.0); Sodium 141 mmol/L (137-145)
[2022-05-25 16:45] LABS: Percent Iron Saturation 4 % (20-50)
[2022-05-25 17:09] LABS: Ferritin 8.16 ng/mL (11.1-264)
== END 2022-05-25 14:33 | disposition home or self-care (01) ==
LOC: ANHLAB 14:34
PROVIDERS: PCP Family Medicine Sports Medicine; Visit Provider Internal Medicine Hematology & Oncology
DX: D64.9 Anemia, unspecified (principal)
CPT/HCPCS: 36415; 80048; 82607; 82728; 83540; 83550; 83615; 85027

== ENCOUNTER 2022-06-02 01:46 | Day surgery (SDC) | payer MEDICARE, OTHER, SELFPAY ==
[2022-05-25 15:06] VITALS: BMI 33.0
[2022-06-02 06:44] VITALS: BP 126/67; PULSE 79; RESP 20; TEMP 35.8; O2SAT 100; BMI 32.8
[2022-06-02] MEDS: LACTATED RINGERS 1,000 ML 150 ML IV CONT (07:02)
--- NOTE | 2022-06-02 07:46 | WPDANESEPPF ---
Anes - Initial Pre Proc Eval Procedure: Operation Date: 06/02/22 08:00 Proposed Procedures p Colonoscopy - Tyler Taylor MD Date/Time: 06/02/22 07:46 Surgeon: Tyler Taylor MD Pre Op Diagnosis: diverticulitis,lower gi bleed, hx of colon cancer Patient Data Age: 71 Gender: F Height: 1.6 m Weight: 83.9 kg Last Vital Signs Temp 96.4 F L 06/02/22 06:44 Pulse 79 06/02/22 06:44 Resp 20 06/02/22 06:44 BP 126/67 06/02/22 06:44 Pulse Ox 100 06/02/22 06:44 O2 Del Method Room Air 06/02/22 06:44 Allergies Allergy/AdvReac Type Severity Reaction Status Date / Time fenofibrate Allergy Intermediate ITCHING, Verified 06/02/22 06:43 HIVES ciprofloxacin Allergy Unknown Unknown Verified 06/02/22 06:43 Penicillins Allergy Unknown Unknown Verified 06/02/22 06:43 Home Medications Medication Instructions Recorded Confirmed Type aspirin 81 mg chewable tablet 81 mg PO QPM 07/13/19 05/25/22 History cyanocobalamin (vitamin B-12) 1,000 mcg PO DAILY 07/13/19 05/25/22 History 1,000 mcg tablet (Vitamin B-12) furosemide 20 mg tablet (Lasix) 20 mg PO DAILY 07/13/19 05/25/22 History metoprolol tartrate 25 mg tablet 12.5 mg PO QPM 07/13/19 05/25/22 History omeprazole 40 mg capsule,delayed 40 mg PO DAILY 07/13/19 05/25/22 History release valsartan 40 mg tablet 40 mg PO QPM 07/13/19 05/25/22 History allopurinol 300 mg tablet 300 mg PO DAILY 12/17/21 05/25/22 History colestipol 1 gram tablet (Colestid) 1 g PO BID PRN Loose Stool 12/17/21 05/25/22 History Saccharomyces boulardii 250 mg 250 mg PO BID 02/16/22 05/25/22 History capsule (Florastor) zolpidem 5 mg tablet 5 mg PO HS 04/13/22 05/25/22 History rosuvastatin 20 mg tablet 20 mg PO HS 05/25/22 05/25/22 History Patient hx anesthesia problems: none Family hx anesthesia problems: none Results Review: All pre-operative results and documents have been reviewed as part of the pre-operative evaluation. [facility] Past Medical History Medical History Abdominal pain CHF (congestive heart failure) Colon cancer Coronary artery disease CVA (cerebral vascular accident) History of colon cancer History of heart attack 1999 Hyperlipidemia Hypertension Nausea and vomiting TIA (transient ischemic attack) Surgical History Surgical History History of appendectomy History of cholecystectomy History of colon resection History of coronary artery stent placement History of hysterectomy Family History Family History Father Family history of heart disease in male family member before age 55 Cancer, bladder, neck Social History Social History Smoking packs per day: 1 Smoking cigarettes per day: 20.0 Years smoked: 47 Smoking pack-years: 47.00 Smoking status: Former smoker Tobacco type: cigarettes Second hand tobacco smoke exposure: No Smoking end date: 06/27/12 Alcohol intake: never Substance use: never Substance use type: does not use Lack of Transportation: No Lack of Food: Never True Current Housing: I Have Housing Concerned About Future Housing: No Difficulty Paying Gas/Electric Bills: No Difficulty Paying for Meds: YES Currently Unemployed: No Education: High School Diploma/GED Difficulty w/ Childcare or Family Care: No Living arrangements: with family Gender identity (if verbalized by the patient): Female Sexual Orientation (if Verbalized by the Patient): Straight or Heterosexual Spiritual care concerns: No Agree to blood products: Yes Anes - Eval Final PreProcedure Day of Procedure 06/02/22 07:46 Patient weight: obese Heart: regular rate and rhythm Lungs: clear to auscultation Airway: Mallampati scale class II Neurologica
--- NOTE | 2022-06-02 07:50 | PM.HPGS ---
History of Present Illness History of Present Illness Consent: Risks, benefits, and alternatives have been discussed and questions answered. Patient agrees to proceed with procedure. Chief complaint: diverticulitis,lower gi bleed, hx of colon cancer Narrative: Hui Dominguez is a 71 year old female with rt hemicolectomy 2019 because colon cancer and dirrhea since, recent hospitalization with diverticulitis. Last colonoscopy 2019. She is using imodium, colestipol and probiotics but still persistent diarrhea, also post cholecystectomy. Review of Systems Constitutional: Constitutional: Denies headache(s) and Denies weakness Eyes: Eyes: Denies blurry vision ENT: Reports Normal hearing present, Denies headache(s) and Denies neck pain Cardiovascular: Cardiovascular: Denies chest pain and Denies dyspnea Respiratory: Respiratory: Denies dyspnea Gastrointestinal: Gastrointestinal: Reports no additional gastrointestinal complaints Genitourinary: Genitourinary: Denies dysuria Musculoskeletal: Musculoskeletal: Denies neck pain Integumentary/Breasts: Skin/Breast: Denies dry skin Neurologic: Reports Normal hearing present, Denies headache(s) and Denies weakness Psychiatric: Psychiatric: Denies anxiety Endocrine: Endocrine: Denies change in body appearance Hematologic/Lymphatic: Hematologic/Lymphatic: Denies easy bleeding Allergic/Immunologic: Allergic/Immunologic: Denies urticaria PMFSH Past Medical History Medical History Abdominal pain CHF (congestive heart failure) Colon cancer Coronary artery disease CVA (cerebral vascular accident) History of colon cancer History of heart attack 1999 Hyperlipidemia Hypertension Nausea and vomiting TIA (transient ischemic attack) Surgical History Surgical History History of appendectomy History of cholecystectomy History of colon resection History of coronary artery stent placement History of hysterectomy Family History Family History Father Family history of heart disease in male family member before age 55 Cancer, bladder, neck Social History Social History Smoking packs per day: 1 Smoking cigarettes per day: 20.0 Years smoked: 47 Smoking pack-years: 47.00 Smoking status: Former smoker Tobacco type: cigarettes Second hand tobacco smoke exposure: No Smoking end date: 06/27/12 Alcohol intake: never Substance use: never Substance use type: does not use Lack of Transportation: No Lack of Food: Never True Current Housing: I Have Housing Concerned About Future Housing: No Difficulty Paying Gas/Electric Bills: No Difficulty Paying for Meds: YES Currently Unemployed: No Education: High School Diploma/GED Difficulty w/ Childcare or Family Care: No Living arrangements: with family Gender identity (if verbalized by the patient): Female Sexual Orientation (if Verbalized by the Patient): Straight or Heterosexual Spiritual care concerns: No Agree to blood products: Yes Meds Home Medications and Allergies Home Medications Medication Instructions Recorded Confirmed Type aspirin 81 mg chewable tablet 81 mg PO QPM 07/13/19 05/25/22 History cyanocobalamin (vitamin B-12) 1,000 mcg PO DAILY 07/13/19 05/25/22 History 1,000 mcg tablet (Vitamin B-12) furosemide 20 mg tablet (Lasix) 20 mg PO DAILY 07/13/19 05/25/22 History metoprolol tartrate 25 mg tablet 12.5 mg PO QPM 07/13/19 05/25/22 History omeprazole 40 mg capsule,delayed 40 mg PO DAILY 07/13/19 05/25/22 History release valsartan 40 mg tablet 40 mg PO QPM 07/13/19 05/25/22 History allopurinol 300 mg tablet 300 mg PO DAILY 12/17/21 05/25/22 History colestipol 1 gram tablet (Colestid) 1 g PO BID PRN Loose Stool 12/17/21 05/25/22 H
[2022-06-02 08:08] VITALS: BP 117/94; PULSE 61; RESP 18; O2SAT 100
[2022-06-02 08:18] VITALS: BP 76/43; PULSE 60; RESP 15; O2SAT 100
[2022-06-02 08:28] VITALS: BP 82/49; PULSE 60; RESP 18; O2SAT 100
[2022-06-02 08:38] VITALS: BP 105/53; PULSE 62; RESP 22; O2SAT 100
== END 2022-06-02 08:46 | disposition home or self-care (01) ==
PROVIDERS: PCP Family Medicine Sports Medicine; Visit Provider Internal Medicine Gastroenterology
PROC: 0DJD8ZZ Inspection of Lower Intestinal Tract, Via Natural or Artificial Opening Endoscopic (ICD-10-PCS; CPT 45378; principal; 2022-06-02 08:00)
DX: R19.7 Diarrhea, unspecified (principal); K57.30 Diverticulosis of large intestine without perforation or abscess without bleeding; K63.89 Other specified diseases of intestine; Z98.0 Intestinal bypass and anastomosis status; Z85.038 Personal history of other malignant neoplasm of large intestine; Z90.49 Acquired absence of other specified parts of digestive tract; Z87.19 Personal history of other diseases of the digestive system; I11.0 Hypertensive heart disease with heart failure; I50.9 Heart failure, unspecified; I25.10 Atherosclerotic heart disease of native coronary artery without angina pectoris; I25.2 Old myocardial infarction; E78.5 Hyperlipidemia, unspecified; Z86.73 Personal history of transient ischemic attack (TIA), and cerebral infarction without residual deficits; Z87.891 Personal history of nicotine dependence; E66.9 Obesity, unspecified; Z68.32 Body mass index [BMI] 32.0-32.9, adult; Z79.82 Long term (current) use of aspirin
CPT/HCPCS: 45380; 88305; J2704; J7120

== ENCOUNTER 2022-06-17 08:20 | Outpatient (CLI) | payer MEDICARE, OTHER, SELFPAY ==
--- NOTE | ~2022-06-17 | MM_ITS ---
EXAMINATION: MM screening kaylen BI w abdifatah HISTORY: Screening TECHNIQUE: Craniocaudal and mediolateral oblique 3-D tomosynthesis images were obtained and synthetic 2-D images were generated. CAD analysis was submitted and interpreted. COMPARISON: Comparison to multiple prior studies sequentially, with oldest reviewed study dated 03/07. BREAST PARENCHYMAL COMPOSITION: The breasts are almost entirely fatty. FINDINGS: There is no evidence of suspicious mass, calcification, or architectural distortion to sugg est malignancy in either breast. There has been no suspicious interval change. IMPRESSION: 1. No mammographic evidence of malignancy. 2. Recommend routine screening mammography in one year. BI-RADS Category 1: Negative Reviewed, dictated and finalized at location A. 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
== END 2022-06-17 08:21 | disposition home or self-care (01) ==
LOC: ANHIMG 08:21
PROVIDERS: PCP Family Medicine Sports Medicine; Visit Provider Family Medicine Sports Medicine
DX: Z12.31 Encounter for screening mammogram for malignant neoplasm of breast (principal)
CPT/HCPCS: 77063; 77067

== ENCOUNTER 2022-08-05 08:43 | Outpatient (CLI) | payer MEDICARE, OTHER, SELFPAY ==
[2022-08-05 09:31] LABS: Hematocrit 36.8 % (37.0-47.0); Hemoglobin 11.2 g/dL (12.0-15.0); Mean Corpuscular HGB Conc 30.4 g/dl (32-36); Mean Corpuscular Hemoglobin 29.2 pg (26-34); Mean Corpuscular Volume 95.8 fl (80-100); Mean Platelet Volume 10.4 fl (7.4-10.4); Platelet Count Result 183 k/mm3 (150-375); Red Blood Count 3.84 M/mm3 (4.2-5.4); Red Cell Distribution Width 19.8 % (11.5-14.5); White Blood Count 5.6 K/mm3 (4.5-10.0)
[2022-08-05 11:12] LABS: Iron 66 ug/dL (37-170)
[2022-08-05 11:19] LABS: Anion Gap 4 mmol/L (8-16); Blood Urea Nitrogen 22 mg/dL (7-17); Carbon Dioxide 25 mmol/L (22-30); Chloride 111 mmol/L (98-107); Estimated Glomerular Filt Rate 40; Glucose 84 mg/dL (65-110); Potassium 4.4 mmol/L (3.4-5.0); Sodium 140 mmol/L (137-145)
[2022-08-05 11:23] LABS: Percent Iron Saturation 19 % (20-50)
[2022-08-05 12:27] LABS: Folic Acid > 20.0 ng/mL (2.76->20)
== END 2022-08-05 08:44 | disposition home or self-care (01) ==
PROVIDERS: PCP Family Medicine Sports Medicine; Visit Provider Internal Medicine Hematology & Oncology
DX: D64.9 Anemia, unspecified (principal)
CPT/HCPCS: 36415; 80048; 82607; 82728; 82746; 83540; 83550; 85027

== ENCOUNTER 2022-08-10 11:22 | Outpatient (CLI) | payer MEDICARE, OTHER, SELFPAY ==
--- NOTE | ~2022-08-10 | US_ITS ---
EXAMINATION:US venous doppler LE LT INDICATION:Left lower extremity pain TECHNIQUE: Multiple grayscale, color flow and Doppler images of the left lower extremity deep venous systems were obtained and reviewed. COMPARISON:No prior studies for comparison. FINDINGS: The common femoral, superficial femoral and popliteal veins demonstrate normal respiratory variation, augmentation and compressibility. Color flow is also seen within the posterior tibial, pe roneal, greater saphenous and profunda veins. IMPRESSION: 1: No lower extremity deep venous thrombosis. Reviewed, dictated and finalized at location A. 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
[2022-08-10 12:26] LABS: Basophils Absolute Auto 0.1 K/mm3 (0.0-0.1); Basophils Percent Auto 1.5 % (0.2-1.2); Eosinophils Absolute Auto 0.3 K/mm3 (0-0.3); Eosinophils Percent Auto 4.4 % (0-4.4); Hemoglobin 11.6 g/dL (12.0-15.0); Immature Granulocyte Absolute 0.01 K/mm3 (0.00-0.031); Immature Granulocyte Percent A 0.2 % (0-0.5); Lymphocytes Absolute Auto 1.58 K/mm3 (0.9-3.2); Lymphocytes Percent Auto 25.6 % (18.3-44.2); Mean Corpuscular HGB Conc 30.5 g/dl (32-36); Mean Corpuscular Hemoglobin 29.2 pg (26-34); Mean Corpuscular Volume 95.7 fl (80-100); Mean Platelet Volume 10.5 fl (7.4-10.4); Monocytes Absolute Auto 0.6 K/mm3 (0.1-0.6); Monocytes Percent Auto 9.6 % (2.6-8.5); Neutrophils Absolute Auto 3.6 K/mm3 (1.3-6.7); Neutrophils Percent Auto 58.7 % (45.5-73.1); Platelet Count Result 180 k/mm3 (150-375); Red Blood Count 3.97 M/mm3 (4.2-5.4); Red Cell Distribution Width 19.9 % (11.5-14.5); White Blood Count 6.2 K/mm3 (4.5-10.0)
== END 2022-08-10 11:23 | disposition home or self-care (01) ==
PROVIDERS: PCP Family Medicine Sports Medicine; Visit Provider Podiatrist Foot & Ankle Surgery
DX: M10.072 Idiopathic gout, left ankle and foot (principal); M79.662 Pain in left lower leg; R60.9 Edema, unspecified
CPT/HCPCS: 36415; 85025; 93971

== ENCOUNTER 2022-10-29 09:02 | Outpatient (CLI) | payer MEDICARE, OTHER, SELFPAY ==
[2022-10-29 09:21] LABS: Basophils Percent Auto 0.8 % (0.2-1.2); Eosinophils Absolute Auto 0.1 K/mm3 (0-0.3); Eosinophils Percent Auto 1.4 % (0-4.4); Hematocrit 39.6 % (37.0-47.0); Hemoglobin 12.2 g/dL (12.0-15.0); Immature Granulocyte Absolute 0.01 K/mm3 (0.00-0.031); Immature Granulocyte Percent A 0.2 % (0-0.5); Lymphocytes Absolute Auto 0.91 K/mm3 (0.9-3.2); Lymphocytes Percent Auto 18.2 % (18.3-44.2); Mean Corpuscular HGB Conc 30.8 g/dl (32-36); Mean Corpuscular Hemoglobin 31.1 pg (26-34); Mean Platelet Volume 9.5 fl (7.4-10.4); Monocytes Absolute Auto 0.4 K/mm3 (0.1-0.6); Monocytes Percent Auto 8.8 % (2.6-8.5); Neutrophils Absolute Auto 3.5 K/mm3 (1.3-6.7); Neutrophils Percent Auto 70.6 % (45.5-73.1); Platelet Count Result 171 k/mm3 (150-375); Red Blood Count 3.92 M/mm3 (4.2-5.4); Red Cell Distribution Width 13.2 % (11.5-14.5)
[2022-10-29 14:39] LABS: Iron 44 ug/dL (37-170)
[2022-10-29 14:42] LABS: Anion Gap 8 mmol/L (8-16); Blood Urea Nitrogen 22 mg/dL (7-17); Calcium 9.9 mg/dL (8.4-10.2); Carbon Dioxide 22 mmol/L (22-30); Chloride 110 mmol/L (98-107); Estimated Glomerular Filt Rate 49; Glucose 88 mg/dL (65-110); Potassium 4.2 mmol/L (3.4-5.0); Sodium 140 mmol/L (137-145)
[2022-10-29 14:51] LABS: Percent Iron Saturation 12 % (20-50)
[2022-10-29 17:25] LABS: Folic Acid > 20.0 ng/mL (2.76->20)
== END 2022-10-29 09:03 | disposition home or self-care (01) ==
LOC: ANHLAB 09:05
PROVIDERS: PCP Family Medicine Sports Medicine; Visit Provider Internal Medicine Hematology & Oncology
DX: D64.9 Anemia, unspecified (principal)
CPT/HCPCS: 36415; 80048; 82607; 82728; 82746; 83540; 83550; 85025

== ENCOUNTER 2023-02-11 13:30 | Outpatient (NON) | payer MEDICARE, OTHER, SELFPAY ==
[2023-02-11 16:13] LABS: Toxigenic C. Diff NEGATIVE (NEGATIVE)
[2023-02-20 17:16] LABS: Pancreatic Elastase, Stool >500 mcg/g
== END 2023-02-11 13:31 | disposition home or self-care (01) ==
PROVIDERS: PCP Family Medicine Sports Medicine; Visit Provider Nurse Practitioner Family
DX: R19.7 Diarrhea, unspecified (principal)
CPT/HCPCS: 82653; 87493

== ENCOUNTER 2023-02-12 07:59 | Outpatient (CLI) | payer MEDICARE, OTHER, SELFPAY ==
[2023-02-23 16:08] LABS: Pancreatic Elastase, Stool >500 mcg/g
== END 2023-02-12 08:00 | disposition home or self-care (01) ==
LOC: ANHLAB 08:05
PROVIDERS: PCP Family Medicine Sports Medicine; Visit Provider Nurse Practitioner Family
DX: R19.7 Diarrhea, unspecified (principal)
CPT/HCPCS: 82653

== ENCOUNTER 2023-02-24 09:38 | Outpatient (CLI) | payer MEDICARE, OTHER, SELFPAY ==
--- NOTE | ~2023-02-24 | MR_ITS ---
EXAMINATION: MR abdomen wo/w con DATE: 02/24/2023 10:54 INDICATION: Neoplasm of uncertain behavior of left kidney. TECHNIQUE: Magnetic resonance imaging (MRI) of the abdomen was performed without and with 16 mL Multi Caitlyn intravenous contrast. COMPARISON: MRCP 05/05/2022, CT abdomen and pelvis 04/13/2022 FINDINGS: The liver, spleen, pancreas, and adrenal glands are normal. There are cysts and hemorrhagic cysts in the kidneys measuring up to 3.8 cm on the left. There are no dilated loops of bowel. There is a ventr al hernia containing nonobstructed small bowel. There are no pathologically enlarged lymph nodes. The re is no free intraperitoneal fluid. IMPRESSION: 1. Benign cysts in the kidneys. 2. Ventral hernia containing nonobstructed small bowel. Reviewed, dictated and finalized at location E.
== END 2023-02-24 09:39 | disposition home or self-care (01) ==
LOC: ANHIMG 09:41
PROVIDERS: PCP Family Medicine Sports Medicine; Visit Provider Nurse Practitioner Adult Health
DX: D41.02 Neoplasm of uncertain behavior of left kidney (principal); N28.1 Cyst of kidney, acquired
CPT/HCPCS: 74183; A9577

== ENCOUNTER 2023-04-29 12:26 | Outpatient (CLI) | payer MEDICARE, OTHER, SELFPAY ==
[2023-04-29 14:04] LABS: Iron 91 ug/dL (37-170)
[2023-04-29 14:05] LABS: Anion Gap 7 mmol/L (8-16); Blood Urea Nitrogen 50 mg/dL (7-17); Calcium 10.7 mg/dL (8.4-10.2); Carbon Dioxide 24 mmol/L (22-30); Chloride 107 mmol/L (98-107); Estimated Glomerular Filt Rate 28; Glucose 86 mg/dL (65-110); Potassium 3.6 mmol/L (3.4-5.0); Sodium 138 mmol/L (137-145)
[2023-04-29 14:16] LABS: Percent Iron Saturation 24 % (20-50)
[2023-04-29 14:37] LABS: Basophils Absolute Auto 0.1 K/mm3 (0.0-0.1); Basophils Percent Auto 0.9 % (0.2-1.2); Eosinophils Absolute Auto 0.1 K/mm3 (0-0.3); Eosinophils Percent Auto 1.4 % (0-4.4); Hematocrit 36.6 % (37.0-47.0); Hemoglobin 11.4 g/dL (12.0-15.0); Immature Granulocyte Absolute 0.02 K/mm3 (0.00-0.031); Immature Granulocyte Percent A 0.4 % (0-0.5); Lymphocytes Absolute Auto 1.31 K/mm3 (0.9-3.2); Lymphocytes Percent Auto 23.3 % (18.3-44.2); Mean Corpuscular HGB Conc 31.1 g/dl (32-36); Mean Corpuscular Hemoglobin 30.3 pg (26-34); Mean Corpuscular Volume 97.3 fl (80-100); Mean Platelet Volume 10.4 fl (7.4-10.4); Monocytes Absolute Auto 0.4 K/mm3 (0.1-0.6); Monocytes Percent Auto 7.1 % (2.6-8.5); Neutrophils Absolute Auto 3.8 K/mm3 (1.3-6.7); Neutrophils Percent Auto 66.9 % (45.5-73.1); Platelet Count Result 195 k/mm3 (150-375); Red Blood Count 3.76 M/mm3 (4.2-5.4); Red Cell Distribution Width 14.1 % (11.5-14.5); White Blood Count 5.6 K/mm3 (4.5-10.0)
[2023-04-29 15:06] LABS: Folic Acid > 20.0 ng/mL (2.76->20); Vitamin B12 > 1000.0 pg/mL (239-931)
== END 2023-04-29 12:27 | disposition home or self-care (01) ==
PROVIDERS: PCP Family Medicine Sports Medicine; Visit Provider Internal Medicine Hematology & Oncology
DX: D64.9 Anemia, unspecified (principal)
CPT/HCPCS: 36415; 80048; 82607; 82728; 82746; 83540; 83550; 85025

== ENCOUNTER 2023-06-03 08:39 | Outpatient (CLI) | payer MEDICARE, OTHER, SELFPAY ==
[2023-06-03 09:47] LABS: Basophils Percent Auto 0.7 % (0.2-1.2); Eosinophils Absolute Auto 0.1 K/mm3 (0-0.3); Eosinophils Percent Auto 1.3 % (0-4.4); Hematocrit 36.3 % (37.0-47.0); Hemoglobin 11.3 g/dL (12.0-15.0); Immature Granulocyte Absolute 0.02 K/mm3 (0.00-0.031); Immature Granulocyte Percent A 0.3 % (0-0.5); Lymphocytes Percent Auto 23.3 % (18.3-44.2); Mean Corpuscular HGB Conc 31.1 g/dl (32-36); Mean Corpuscular Hemoglobin 30.7 pg (26-34); Mean Corpuscular Volume 98.6 fl (80-100); Mean Platelet Volume 10.8 fl (7.4-10.4); Monocytes Absolute Auto 0.6 K/mm3 (0.1-0.6); Monocytes Percent Auto 9.2 % (2.6-8.5); Neutrophils Absolute Auto 3.9 K/mm3 (1.3-6.7); Neutrophils Percent Auto 65.2 % (45.5-73.1); Platelet Count Result 173 k/mm3 (150-375); Red Blood Count 3.68 M/mm3 (4.2-5.4); Red Cell Distribution Width 14.6 % (11.5-14.5)
[2023-06-03 09:56] LABS: Appearance Urine Cloudy (Clear); Bacteria Urine 4+ /hpf; Bilirubin Urine Negative (Negative); Blood Urine Trace (Negative); Color Urine Yellow (Yellow); Glucose Urine UA Negative (Negative); Ketones Urine Negative (Negative); Leukocyte Esterase Ur Trace LEU/UL (NEGATIVE); Nitrate Urine Negative (Negative); Protein Urine Negative (Negative); RBC Urine 0-2 /hpf (0-2); Specific Grav Ur 1.013 (1.001-1.035); Squamous Epithelial Cell Urine None seen /hpf (Few); Urobilinogen Urine 0.2 mg/dL (<2.0); WBC Urine 0-5 /hpf (0-3)
[2023-06-03 10:01] LABS: Alanine Aminotransferase 21 U/L (6-35); Albumin Level 4.1 g/dL (3.5-5.1); Alkaline Phosphatase 85 U/L (38-126); Anion Gap 8 mmol/L (8-16); Aspartate Amino Transferase 44 U/L (14-36); Bilirubin,Total 0.5 mg/dL (0.2-1.3); Blood Urea Nitrogen 40 mg/dL (7-17); Calcium 10.5 mg/dL (8.4-10.2); Carbon Dioxide 20 mmol/L (22-30); Chloride 111 mmol/L (98-107); Estimated Glomerular Filt Rate 40; Glucose 84 mg/dL (65-110); Potassium 3.9 mmol/L (3.4-5.0); Sodium 139 mmol/L (137-145)
[2023-06-03 10:11] LABS: Iron 73 ug/dL (37-170)
[2023-06-03 10:20] LABS: Percent Iron Saturation 20 % (20-50)
[2023-06-03 10:23] LABS: Add Urine Microscopic? YES
[2023-06-03 10:29] LABS: Free T4 Free Thyroxine 0.92 ng/mL (0.78-2.19)
[2023-06-03 11:05] LABS: Folic Acid > 20.0 ng/mL (2.76->20); Vitamin B12 > 1000.0 pg/mL (239-931)
== END 2023-06-03 08:40 | disposition home or self-care (01) ==
PROVIDERS: PCP Family Medicine Sports Medicine; Visit Provider Family Medicine Sports Medicine
DX: D64.9 Anemia, unspecified (principal); Z13.21 Encounter for screening for nutritional disorder
CPT/HCPCS: 36415; 80053; 81001; 82607; 82728; 82746; 83540; 83550; 84439; 84443; 85025

== ENCOUNTER 2023-07-06 09:10 | Outpatient (CLI) | payer MEDICARE, OTHER, SELFPAY ==
[2023-07-09 09:18] LABS: Immunoglobulin A 164 mg/dL (70-320); TTG IGA AB <1.0 U/mL (<15.0)
== END 2023-07-06 09:11 | disposition home or self-care (01) ==
PROVIDERS: Visit Provider Nurse Practitioner Family
DX: R19.7 Diarrhea, unspecified (principal)
CPT/HCPCS: 36415; 82784; 86364

== ENCOUNTER 2023-11-03 09:55 | Outpatient (CLI) | payer MEDICARE, OTHER, SELFPAY ==
[2023-11-03 10:14] LABS: Basophils Absolute Auto 0.1 K/mm3 (0.0-0.1); Basophils Percent Auto 1.3 % (0.2-1.2); Eosinophils Absolute Auto 0.2 K/mm3 (0-0.3); Eosinophils Percent Auto 3.2 % (0-4.4); Hematocrit 36.1 % (37.0-47.0); Hemoglobin 11.3 g/dL (12.0-15.0); Immature Granulocyte Absolute 0.01 K/mm3 (0.00-0.031); Immature Granulocyte Percent A 0.2 % (0-0.5); Lymphocytes Absolute Auto 1.29 K/mm3 (0.9-3.2); Lymphocytes Percent Auto 20.9 % (18.3-44.2); Mean Corpuscular HGB Conc 31.3 g/dl (32-36); Mean Corpuscular Hemoglobin 31.2 pg (26-34); Mean Corpuscular Volume 99.7 fl (80-100); Mean Platelet Volume 10.1 fl (7.4-10.4); Monocytes Absolute Auto 0.4 K/mm3 (0.1-0.6); Monocytes Percent Auto 6.1 % (2.6-8.5); Neutrophils Absolute Auto 4.2 K/mm3 (1.3-6.7); Neutrophils Percent Auto 68.3 % (45.5-73.1); Platelet Count Result 211 k/mm3 (150-375); Red Blood Count 3.62 M/mm3 (4.2-5.4); Red Cell Distribution Width 14.4 % (11.5-14.5); White Blood Count 6.2 K/mm3 (4.5-10.0)
[2023-11-03 12:23] LABS: Iron 92 ug/dL (37-170)
[2023-11-03 12:27] LABS: Anion Gap 8 mmol/L (4-12); Blood Urea Nitrogen 35 mg/dL (7-17); Carbon Dioxide 21 mmol/L (22-30); Chloride 112 mmol/L (98-107); Estimated Glomerular Filt Rate 29; Glucose 94 mg/dL (65-110); Potassium 3.9 mmol/L (3.4-5.0); Sodium 141 mmol/L (137-145)
[2023-11-03 12:37] LABS: Percent Iron Saturation 23 % (20-50)
[2023-11-03 13:33] LABS: Folic Acid > 20.0 ng/mL (2.76->20)
== END 2023-11-03 09:56 | disposition home or self-care (01) ==
PROVIDERS: Nurse Practitioner Family; Visit Provider Internal Medicine Hematology & Oncology
DX: D64.9 Anemia, unspecified (principal)
CPT/HCPCS: 36415; 80048; 82607; 82728; 82746; 83540; 83550; 85025

== ENCOUNTER 2023-11-07 11:31 | Outpatient (CLI) | payer MEDICARE, OTHER, SELFPAY ==
[2023-11-07 13:27] LABS: Parathyroid Intact 37.1 pg/mL (7.5-53.5)
[2023-11-07 13:54] LABS: Immunoglobulin A 159 mg/dL (70-400); Immunoglobulin G 400 mg/dL (700-1600); Immunoglobulin M 45 mg/dL (40-230)
[2023-11-07 15:31] LABS: Vitamin D 25 Hydroxy 35.5 ng/mL
[2023-11-08 12:04] LABS: Kappa\\Lambda Light Chains 1.52 (0.26-1.65); Lambda Light Chain 29.5 mg/L (5.7-26.3)
[2023-11-09 10:59] LABS: Albumin 3.6 g/dL (3.8-4.8); Alpha 1 Globulin 0.3 g/dL (0.2-0.3); Alpha 2 Globulin 0.9 g/dL (0.5-0.9); Beta 1 Globulin 0.4 g/dL (0.4-0.6); Gamma Globulin 0.5 g/dL (0.8-1.7)
== END 2023-11-07 11:32 | disposition home or self-care (01) ==
LOC: ANHLAB 11:33
PROVIDERS: Visit Provider Internal Medicine Hematology & Oncology
DX: D72.9 Disorder of white blood cells, unspecified (principal); E83.52 Hypercalcemia
CPT/HCPCS: 36415; 82306; 82784; 83883; 83970; 84155; 84165

== ENCOUNTER 2023-11-15 08:22 | Outpatient (CLI) | payer MEDICARE, OTHER, SELFPAY ==
--- NOTE | ~2023-11-15 | MM_ITS ---
EXAMINATION: MM screening kaylen BI w abdifatah HISTORY: Screening TECHNIQUE: Craniocaudal and mediolateral oblique 3-D tomosynthesis images were obtained and synthetic 2-D images were generated. CAD analysis was submitted and interpreted. COMPARISON: Comparison to multiple prior studies sequentially, with oldest reviewed study dated 11/11. BREAST PARENCHYMAL COMPOSITION: Not dense: There are scattered areas of fibroglandular density. FINDINGS: There is no evidence of suspicious mass, calcification, or architectural distortion to sugg est malignancy in either breast. There has been no suspicious interval change. IMPRESSION: 1. No mammographic evidence of malignancy. 2. Recommend routine screening mammography in one year. BI-RADS Category 1: Negative Reviewed, dictated and finalized at location A.
== END 2023-11-15 08:23 | disposition home or self-care (01) ==
DX: Z12.31 Encounter for screening mammogram for malignant neoplasm of breast (principal)
CPT/HCPCS: 77063; 77067

== ENCOUNTER 2023-12-05 10:28 | Outpatient (CLI) | payer MEDICARE, OTHER, SELFPAY ==
[2023-12-05 11:23] LABS: Hematocrit 36.6 % (37.0-47.0); Hemoglobin 11.1 g/dL (12.0-15.0); Mean Corpuscular HGB Conc 30.3 g/dl (32-36); Mean Corpuscular Hemoglobin 30.3 pg (26-34); Mean Platelet Volume 10.4 fl (7.4-10.4); Platelet Count Result 192 k/mm3 (150-375); Red Blood Count 3.66 M/mm3 (4.2-5.4); Red Cell Distribution Width 14.2 % (11.5-14.5); White Blood Count 5.5 K/mm3 (4.5-10.0)
[2023-12-05 11:29] LABS: Appearance Urine Clear (Clear); Bacteria Urine 4+ /hpf; Bilirubin Urine Negative (Negative); Blood Urine Negative (Negative); Color Urine Yellow (Yellow); Glucose Urine UA Negative (Negative); Ketones Urine Negative (Negative); Leukocyte Esterase Ur Trace LEU/UL (Negative); Nitrate Urine Negative (Negative); Protein Urine Negative (Negative); RBC Urine 0-2 /hpf (0-2); Specific Grav Ur 1.008 (1.001-1.035); Squamous Epithelial Cell Urine None Seen /hpf (Few); Urobilinogen Urine 0.2 mg/dL (<2.0); WBC Urine 0-5 /hpf (0-3)
[2023-12-05 11:31] LABS: Add Urine Microscopic? YES
[2023-12-05 11:41] LABS: Albumin Level 4.4 g/dL (3.5-5.1); Anion Gap 8 mmol/L (4-12); Blood Urea Nitrogen 48 mg/dL (7-17); Calcium 10.3 mg/dL (8.4-10.2); Carbon Dioxide 21 mmol/L (22-30); Chloride 110 mmol/L (98-107); Creatine Kinase 93 U/L (30-135); Estimated Glomerular Filt Rate 32; Glucose 84 mg/dL (65-110); Potassium 4.4 mmol/L (3.4-5.0); Sodium 139 mmol/L (137-145); Uric Acid 3.7 mg/dL (2.5-7.5)
[2023-12-05 11:43] LABS: Total Protein Urine Random 8 mg/dL; Ur Ttl Prot Creatinine Ratio 0.29 mg/mg (0-0.20)
[2023-12-05 11:49] LABS: Complement C3 117 mg/dL (88-165)
[2023-12-05 13:30] LABS: Parathyroid Intact 26.1 pg/mL (7.5-53.5)
[2023-12-06 10:28] LABS: Angiotensin Converting Enzyme 57 U/L (9-67)
[2023-12-06 10:38] LABS: Complement Total CH50 >60 U/mL (31-60)
[2023-12-07 09:14] LABS: Anti Nuclear Antibody Pattern Cytoplasmic; Anti Nuclear Antibody Titer 1:40 titer
[2023-12-08 11:42] LABS: Vitamin D 1,25 (OH)2 Total 21 pg/mL (18-72); Vitamin D2 1,25 (OH)2 <8 pg/mL; Vitamin D3 1,25 (OH)2 21 pg/mL
[2023-12-09 21:18] LABS: Immunofixation, Serum Normal pattern.
[2023-12-10 13:54] LABS: Vitamin A 115 mcg/dL (38-98)
[2023-12-15 16:20] LABS: Parathyroid Hormone Related Pr 10 pg/mL (11-20)
== END 2023-12-05 10:29 | disposition home or self-care (01) ==
PROVIDERS: Visit Provider Internal Medicine Nephrology
DX: E83.52 Hypercalcemia (principal); N18.32 Chronic kidney disease, stage 3b; Z87.440 Personal history of urinary (tract) infections
CPT/HCPCS: 36415; 80069; 81001; 82164; 82550; 82570; 82652; 83519; 83970; 84156; 84550; 84590; 85027; 86038; 86039; 86160; 86162; 86334

== ENCOUNTER 2023-12-08 09:13 | Outpatient (RCR) | payer MEDICARE, OTHER, SELFPAY ==
[2023-12-08 11:19] LABS: Creatinine Urine 57.8 mg/dL
[2023-12-08 11:37] LABS: Total Volume 24 Hour Urine 1650 ml; Urea Nitrogen 24 Hour Urine 7.4 G/DAY (12-20)
[2023-12-08 11:38] LABS: Creatinine 24 Hour Urine 0.9 gm/24 (0.8-1.8); Total Volume 24 Hour Urine 1650 ml
[2023-12-09 18:58] LABS: Creat 24 Hr 0.83 g/24 h (0.50-2.15)
[2023-12-20 15:34] LABS: Total Volume 1650 mL
== END 2023-12-08 09:30 | disposition home or self-care (01) ==
LOC: ANHLAB 09:13
PROVIDERS: Visit Provider Internal Medicine Nephrology
DX: N18.32 Chronic kidney disease, stage 3b (principal); E83.52 Hypercalcemia
CPT/HCPCS: 81050; 82340; 82570; 84540; 86335

== ENCOUNTER 2023-12-16 15:34 | Outpatient (CLI) | payer MEDICARE, OTHER, SELFPAY ==
--- NOTE | ~2023-12-16 | US_ITS ---
EXAMINATION: US renal BI DATE: 12/16/2023 16:24 INDICATION: Chronic kidney disease, stage IIIB TECHNIQUE: Multiple ultrasound grayscale images of the kidneys were obtained. COMPARISON: Abdomen MRI 02/24/2023 FINDINGS: The right kidney measures 10.9 x 4.5 x 4.5 cm. The left kidney measures 10.4 x 4.2 x 3.7 cm. The kidn eys demonstrate normal parenchymal echogenicity. There are cysts in the kidneys measuring up to 3.7 c m on the left. There is no hydronephrosis. The bladder is normal. IMPRESSION: 1. Normal kidney sizes. No hydronephrosis. Reviewed, dictated and finalized at location E.
== END 2023-12-16 15:35 | disposition home or self-care (01) ==
LOC: ANHIMG 15:35
PROVIDERS: PCP Family Medicine; Visit Provider Internal Medicine Nephrology
DX: N18.32 Chronic kidney disease, stage 3b (principal); E83.52 Hypercalcemia
CPT/HCPCS: 76775

== ENCOUNTER 2023-12-19 09:25 | Outpatient (CLI) | payer MEDICARE, OTHER, SELFPAY ==
[2023-12-19 10:48] LABS: Rheumatoid Factor < 12.0 IU/ML (<12)
[2023-12-19 11:25] LABS: Erythrocyte Sedimentation Rate 32 mm/hr (0-20)
[2023-12-19 12:11] LABS: Creatinine Urine 49.4 mg/dL; Total Protein Urine Random 7 mg/dL; Ur Ttl Prot Creatinine Ratio 0.14 mg/mg (0-0.20)
[2023-12-20 12:04] LABS: SS-A <1.0 NEG AI (<1.0 NEG); SS-B <1.0 NEG AI (<1.0 NEG)
[2023-12-21 11:29] LABS: Anti Nuclear Antibody Pattern Cytoplasmic; Anti Nuclear Antibody Titer 1:40 titer
[2023-12-21 14:34] LABS: Anti Glomerular Basement Memb <1.0 AI
[2023-12-21 17:57] LABS: Urine Calcium, Random 2.7 mg/dL; Urine Creatinine, Random 48 mg/dL (20-275)
[2023-12-22 10:10] LABS: Vitamin A 127 mcg/dL (38-98)
[2023-12-22 12:39] LABS: ANCA Screen ATYP P-ANCA POS (NEGATIVE); Atyp PANCA Ttr Reflex Chg Test YES; Atypical P-ANCA Titer 1:20 titer (<1:20)
[2023-12-23 23:48] LABS: Renin 21.02 ng/mL/h (0.25-5.82)
[2023-12-25 19:28] LABS: Cryoglobulin, QL Negative (Negative)
== END 2023-12-19 09:26 | disposition home or self-care (01) ==
LOC: ANHLAB 09:31
PROVIDERS: PCP Family Medicine; Referring Provider Family Medicine; Visit Provider Internal Medicine Nephrology
DX: E83.52 Hypercalcemia (principal); R76.0 Raised antibody titer
CPT/HCPCS: 36415; 82310; 82570; 82595; 83520; 84156; 84244; 84590; 85652; 86036; 86038; 86039; 86225; 86235; 86430

== ENCOUNTER 2024-01-13 09:41 | Outpatient (CLI) | payer MEDICARE, OTHER, SELFPAY ==
--- NOTE | ~2024-01-13 | XR_ITS ---
Clinical Indication: Hypercalcemia PA and lateral views of the chest: Comparison: 04/22/2022 Findings: The lungs are clear, without evidence of focal consolidation or pleural effusion. Cardiome diastinal silhouette is within normal limits. Bones and soft tissues are unremarkable. Impression: Normal chest. Reviewed, dictated and finalized at location . Impression: Normal chest.
--- NOTE | ~2024-01-13 | NM_ITS ---
EXAMINATION: NM bone scan whole body DATE: 01/13/2024 13:26 INDICATION: Hypercalcemia TECHNIQUE: 25 mCi Tc-99m HDP was administered intravenously. Delayed whole-body scintigrams were obt ained. COMPARISON: CT abdomen pelvis dated 04/13/2022, right hand and right knee radiographs dated 7. FINDINGS: There is increased joint centered uptake at the radial aspect of the bilateral carpi with severe oste oarthritis at the bilateral first carpal metacarpal joints and enthesopathic uptake at the proximal p oles of the patella with corresponding skeletal changes seen on the radiographs of the right hand and knee. Symmetric likely degenerative facet joint related uptake in the thoracic spine and asymmetric left-sided predominant uptake on the left at L5-S1 with severe facet osteoarthritis on prior CT. IMPRESSION: 1. No lesion suspicious for metastatic disease. Reviewed, dictated and finalized at location A.
== END 2024-01-13 09:42 | disposition home or self-care (01) ==
PROVIDERS: PCP Family Medicine; Visit Provider Internal Medicine Nephrology
DX: E83.52 Hypercalcemia (principal); R76.8 Other specified abnormal immunological findings in serum; C18.9 Malignant neoplasm of colon, unspecified
CPT/HCPCS: 71046; 78306; A9503

== ENCOUNTER 2024-02-08 09:33 | Outpatient (CLI) | payer MEDICARE, OTHER, SELFPAY ==
[2024-02-08 09:57] LABS: Basophils Percent Auto 0.7 % (0.2-1.2); Eosinophils Absolute Auto 0.2 K/mm3 (0-0.3); Eosinophils Percent Auto 2.5 % (0-4.4); Hematocrit 38.3 % (37.0-47.0); Hemoglobin 11.6 g/dL (12.0-15.0); Immature Granulocyte Absolute 0.02 K/mm3 (0.00-0.031); Immature Granulocyte Percent A 0.3 % (0-0.5); Lymphocytes Absolute Auto 1.06 K/mm3 (0.9-3.2); Lymphocytes Percent Auto 17.8 % (18.3-44.2); Mean Corpuscular HGB Conc 30.3 g/dl (32-36); Mean Corpuscular Volume 95.8 fl (80-100); Mean Platelet Volume 9.9 fl (7.4-10.4); Monocytes Absolute Auto 0.4 K/mm3 (0.1-0.6); Monocytes Percent Auto 6.2 % (2.6-8.5); Neutrophils Absolute Auto 4.3 K/mm3 (1.3-6.7); Neutrophils Percent Auto 72.5 % (45.5-73.1); Platelet Count Result 244 k/mm3 (150-375)
[2024-02-08 10:56] LABS: Iron 56 ug/dL (37-170)
[2024-02-08 10:58] LABS: Alanine Aminotransferase 21 U/L (6-35); Albumin Level 4.3 g/dL (3.5-5.1); Alkaline Phosphatase 94 U/L (38-126); Anion Gap 10 mmol/L (4-12); Aspartate Amino Transferase 33 U/L (14-36); Bilirubin,Total 0.4 mg/dL (0.2-1.3); Blood Urea Nitrogen 32 mg/dL (7-17); Calcium 10.3 mg/dL (8.4-10.2); Carbon Dioxide 25 mmol/L (22-30); Chloride 106 mmol/L (98-107); Estimated Glomerular Filt Rate 34; Glucose 96 mg/dL (65-110); Potassium 4.1 mmol/L (3.4-5.0); Sodium 141 mmol/L (137-145)
[2024-02-08 11:05] LABS: Percent Iron Saturation 14 % (20-50)
[2024-02-08 11:08] LABS: Immunoglobulin A 168 mg/dL (70-400); Immunoglobulin G 481 mg/dL (700-1600); Immunoglobulin M 54 mg/dL (40-230)
[2024-02-09 09:43] LABS: Protein, Total 6.6 g/dL (6.1-8.1)
[2024-02-09 12:35] LABS: Albumin 3.9 g/dL (3.8-4.8); Alpha 1 Globulin 0.4 g/dL (0.2-0.3); Beta 1 Globulin 0.5 g/dL (0.4-0.6); Gamma Globulin 0.5 g/dL (0.8-1.7)
[2024-02-09 14:38] LABS: Kappa\\Lambda Light Chains 1.62 (0.26-1.65); Lambda Light Chain 33.9 mg/L (5.7-26.3)
== END 2024-02-08 09:34 | disposition home or self-care (01) ==
PROVIDERS: PCP Family Medicine; Visit Provider Internal Medicine Hematology & Oncology
DX: D64.9 Anemia, unspecified (principal); D72.9 Disorder of white blood cells, unspecified
CPT/HCPCS: 36415; 80053; 82607; 82728; 82784; 83540; 83550; 83883; 84155; 84165; 85025

== ENCOUNTER 2024-05-16 08:14 | Outpatient (CLI) | payer MEDICARE, OTHER, SELFPAY ==
[2024-05-16 08:37] LABS: Basophils Percent Auto 0.8 % (0.2-1.2); Eosinophils Absolute Auto 0.1 K/mm3 (0-0.3); Eosinophils Percent Auto 2.4 % (0-4.4); Hematocrit 34.5 % (37.0-47.0); Hemoglobin 10.7 g/dL (12.0-15.0); Immature Granulocyte Absolute 0.01 K/mm3 (0.00-0.031); Immature Granulocyte Percent A 0.2 % (0-0.5); Lymphocytes Absolute Auto 1.17 K/mm3 (0.9-3.2); Mean Corpuscular Hemoglobin 29.1 pg (26-34); Mean Corpuscular Volume 93.8 fl (80-100); Mean Platelet Volume 9.7 fl (7.4-10.4); Monocytes Absolute Auto 0.4 K/mm3 (0.1-0.6); Monocytes Percent Auto 8.1 % (2.6-8.5); Neutrophils Absolute Auto 3.3 K/mm3 (1.3-6.7); Neutrophils Percent Auto 65.5 % (45.5-73.1); Platelet Count Result 207 k/mm3 (150-375); Red Blood Count 3.68 M/mm3 (4.2-5.4); Red Cell Distribution Width 15.7 % (11.5-14.5); White Blood Count 5.1 K/mm3 (4.5-10.0)
[2024-05-16 13:46] LABS: Iron 59 ug/dL (37-170)
[2024-05-16 13:56] LABS: Percent Iron Saturation 15 % (20-50)
[2024-05-16 14:06] LABS: Alanine Aminotransferase 22 U/L (6-35); Albumin Level 4.3 g/dL (3.5-5.1); Alkaline Phosphatase 79 U/L (38-126); Anion Gap 8 mmol/L (4-12); Aspartate Amino Transferase 39 U/L (14-36); Bilirubin,Total 0.4 mg/dL (0.2-1.3); Blood Urea Nitrogen 49 mg/dL (7-17); Calcium 10.5 mg/dL (8.4-10.2); Carbon Dioxide 23 mmol/L (22-30); Chloride 111 mmol/L (98-107); Estimated Glomerular Filt Rate 28; Glucose 88 mg/dL (65-110); Sodium 142 mmol/L (137-145)
[2024-05-16 14:18] LABS: Immunoglobulin A 163 mg/dL (70-400); Immunoglobulin G 443 mg/dL (700-1600); Immunoglobulin M 47 mg/dL (40-230)
[2024-05-16 15:13] LABS: Folic Acid > 20.0 ng/mL (2.76->20)
[2024-05-17 08:54] LABS: Protein, Total 6.2 g/dL (6.1-8.1)
[2024-05-18 12:43] LABS: Albumin 3.6 g/dL (3.8-4.8); Alpha 1 Globulin 0.3 g/dL (0.2-0.3); Beta 1 Globulin 0.5 g/dL (0.4-0.6); Gamma Globulin 0.5 g/dL (0.8-1.7)
[2024-05-22 13:09] LABS: Kappa\\Lambda Light Chains 1.42 (0.26-1.65); Lambda Light Chain 33.9 mg/L (5.7-26.3)
== END 2024-05-16 08:15 | disposition home or self-care (01) ==
PROVIDERS: PCP Family Medicine; Visit Provider Internal Medicine Hematology & Oncology
DX: D72.9 Disorder of white blood cells, unspecified (principal); D64.9 Anemia, unspecified
CPT/HCPCS: 36415; 80053; 82607; 82728; 82746; 82784; 83540; 83550; 83883; 84155; 84165; 85025

== ENCOUNTER 2024-06-04 14:02 | Outpatient (CLI) | payer MEDICARE, OTHER, SELFPAY ==
[2024-06-04 14:35] LABS: Hematocrit 34.6 % (37.0-47.0); Hemoglobin 10.9 g/dL (12.0-15.0); Mean Corpuscular HGB Conc 31.5 g/dl (32-36); Mean Corpuscular Hemoglobin 29.9 pg (26-34); Mean Corpuscular Volume 95.1 fl (80-100); Platelet Count Result 243 k/mm3 (150-375); Red Blood Count 3.64 M/mm3 (4.2-5.4); Red Cell Distribution Width 15.9 % (11.5-14.5); White Blood Count 6.7 K/mm3 (4.5-10.0)
[2024-06-04 14:46] LABS: Albumin Level 4.1 g/dL (3.5-5.1); Anion Gap 9 mmol/L (4-12); Blood Urea Nitrogen 46 mg/dL (7-17); Calcium 10.2 mg/dL (8.4-10.2); Carbon Dioxide 21 mmol/L (22-30); Chloride 110 mmol/L (98-107); Estimated Glomerular Filt Rate 24; Glucose 91 mg/dL (65-110); Phosphorus 3.2 mg/dL (2.5-4.5); Potassium 3.1 mmol/L (3.4-5.0); Sodium 140 mmol/L (137-145)
[2024-06-04 14:57] LABS: Parathyroid Intact 132.7 pg/mL (14.5-75.2)
[2024-06-04 15:31] LABS: Creatinine Urine 77.7 mg/dL; Total Protein Urine Random 12 mg/dL; Ur Ttl Prot Creatinine Ratio 0.15 mg/mg (0-0.20)
== END 2024-06-04 14:03 | disposition home or self-care (01) ==
LOC: ANHLAB 14:03
PROVIDERS: PCP Family Medicine; Visit Provider Internal Medicine Nephrology
DX: E83.52 Hypercalcemia (principal); N18.32 Chronic kidney disease, stage 3b; R76.8 Other specified abnormal immunological findings in serum; Z87.440 Personal history of urinary (tract) infections
CPT/HCPCS: 36415; 80069; 82570; 83970; 84156; 84590; 85027

== ENCOUNTER 2024-06-21 12:28 | Emergency (ER) | payer MEDICARE, OTHER, SELFPAY ==
--- NOTE | ~2024-06-21 | CT_ITS ---
EXAMINATION: CT cervical spine wo con DATE: 06/21/2024 14:19 INDICATION: Head injury TECHNIQUE: Computed tomography (CT) of the cervical spine was performed without intravenous contrast. Automated exposure control and iterative reconstruction technique were employed. The dose-length pro duct was 414.52 mGy-cm. COMPARISON: None FINDINGS: Alignment is normal. Vertebral body heights are normal. No fracture. Severe osteoarthritis at the michela antoaxial articulation with surrounding calcified pannus. Moderate disc height loss at C5-C6 and C6-C 7. Mild disc height loss at the C3-C4, C4-C5 and C7-T1. There are disc bulges at C2-C3 through C6-C7 resulting in mild central canal stenosis at each of these levels. There is multilevel severe right-si ded and moderate to severe left-sided uncovertebral osteoarthritis. There is multilevel bilateral mil d to moderate cervical facet osteoarthritis. This contributes to moderate to severe neural foraminal stenosis on the right at C4-C5 and on the left at C5-C6 and mild to moderate neural from stenosis at at the remaining neural foramina from C3-C4 through C6-C7. Atherosclerotic calcifications at the bila teral carotid bulbs. Right-sided thyroid nodules with coarse calcification. Cervical soft tissues are otherwise unremarkable. Visualized apices of lungs are clear. IMPRESSION: 1. Moderate cervical spondylosis. No acute osseous abnormality. Reviewed, dictated and finalized at location B. AUDITOR
--- NOTE | ~2024-06-21 | CT_ITS ---
CT brain wo con Ordering provider: Lena Gross History: 73 years Female with . head injury . Comparison: None. Technique: CT of the head without contrast. Radiation reduction technique utilized.The dose-length product was 605.33 mGy-cm. FINDINGS: BRAIN PARENCHYMA AND CSF SPACES: Mild leukoaraiosis and diffuse cortical atrophy. Mild atheromatous d isease. Left occipital encephalomalacia. Bilateral insular hypodensities suggestive of old infarcts N o midline shift, mass effect or hemorrhage. The brain parenchyma and CSF spaces are otherwise normal . Empty sella turcica. VISUALIZED PARANASAL SINUSES: Well aerated. MASTOIDS: Well aerated. BONES: The bones appear intact. SOFT TISSUES: Visualized nasopharynx is normal. Left parietal scalp hematoma. Otherwise, Superficial soft tissues are normal. IMPRESSION: No acute intracranial findings. Reviewed, dictated and finalized at location A. ENGINEER
--- NOTE | ~2024-06-21 | XR_ITS ---
EXAMINATION: XR shoulder LT min 2V DATE: 06/21/2024 14:22 INDICATION: Left shoulder pain post fall TECHNIQUE: AP internally and externally rotated, AP oblique externally rotated and transscapular Y vi ews of the left shoulder were obtained. COMPARISON: None FINDINGS: Normal alignment. No fracture.Moderate to severe left glenohumeral and acromioclavicular osteoarthri tis. The visualized portions of the lungs are clear. Soft tissues are unremarkable. IMPRESSION: Moderate to severe left glenohumeral and acromioclavicular osteoarthritis. No acute osseous abnormali ty. Reviewed, dictated and finalized at location B. L ASSEMBLER IMPRESSION: Moderate to severe left glenohumeral and acromioclavicular osteoarthritis. No a cute osseous abnormality.
[2024-06-21 12:29] VITALS: BP 137/87; PULSE 91; RESP 18; TEMP 36.6; O2SAT 100
--- NOTE | 2024-06-21 14:03 | ED_ITS ---
HPI - Fall General Chief Complaint: Fall <Lena Gross PA-C - Last Filed: 06/25/24 20:37> Stated Complaint: fall <Lena Gross PA-C - Last Filed: 06/25/24 20:37> Time Seen by Provider: 06/21/24 14:03 <Lena Gross PA-C - Last Filed: 06/25/24 20:37> Focused HPI: This is a 73 year old female that presents to the ER for a fall. Reports she got up to go to the restroom. She remembers falling. Reports she hit her head. She did not lose consciousness. She takes Aspirin daily. Reports left shoulder pain. GENERAL: Well-appearing, well-nourished, and in no acute distress. HEAD: Normocephalic, atraumatic. CHEST: Clear to auscultation. ?No respiratory distress. HEART: Regular rate and rhythm.? NEURO: ?Alert and oriented x3. Patient screened in triage and initial orders placed.? ?Additional care and disposition to be based upon?diagnostic testing and treatment. <Lena Gross PA-C - Last Filed: 06/25/24 20:37> History of Present Illness HPI Narrative: I agree with the above HPI Patient also reports that she has been having increasing falls at nighttime. <Nick Cummins MD - Last Filed: 06/21/24 19:22> Related Data Home Medications: Home Medications ?Medication ?Instructions ?Recorded ?Confirmed ?Last Taken ?Type furosemide 20 mg tablet (Lasix) 20 mg PO DAILY 07/13/19 06/20/24 06/01/22 History omeprazole 40 mg capsule,delayed 40 mg PO DAILY 07/13/19 06/20/24 06/01/22 History release valsartan 40 mg tablet 40 mg PO QPM 07/13/19 06/20/24 06/01/22 History allopurinol 300 mg tablet 300 mg PO DAILY 03/20/24 06/20/24 Unknown History aspirin 325 mg tablet 325 mg PO DAILY 03/20/24 06/20/24 Unknown History coenzyme Q10 75 mg capsule (Ultra 75 mg PO DAILY 03/20/24 06/20/24 Unknown History CoQ10) cyclobenzaprine 10 mg tablet 10 mg PO TID 03/20/24 06/20/24 Unknown History melatonin 10 mg capsule 10 mg PO QHS 03/20/24 06/20/24 Unknown History potassium citrate 99 mg capsule 99 mg PO DAILY 03/20/24 06/20/24 Unknown History sour ruffin extract 1,000 mg 1,000 mg PO DAILY 03/20/24 06/20/24 Unknown History capsule (Tart Ruffin Extract) atorvastatin 20 mg tablet 20 mg PO DAILY 06/18/24 06/20/24 Unknown History <Lena Gross PA-C - Last Filed: 06/25/24 20:37> Allergies/Adverse Reactions: Allergies Allergy/AdvReac Type Severity Reaction Status Date / Time fenofibrate Allergy Intermediate ITCHING, Verified 06/21/24 16:01 HIVES ciprofloxacin Allergy Unknown Unknown Verified 06/21/24 16:01 Penicillins Allergy Unknown Unknown Verified 06/21/24 16:01 <Lena Gross PA-C - Last Filed: 06/25/24 20:37> Review of Systems Review of Systems: All systems reviewed & are unremarkable except as noted in HPI and below <Nick Cummins MD - Last Filed: 06/21/24 19:22> [facility] Past Medical History Medical History: Medical History Irritable bowel syndrome with diarrhea Nausea and vomiting Abdominal pain History of colon cancer History of heart attack 1999 Hyperlipidemia Hypertension CHF (congestive heart failure) TIA (transient ischemic attack) CVA (cerebral vascular accident) Coronary artery disease Colon cancer <Lena Gross PA-C - Last Filed: 06/25/24 20:37> Surgical History Surgical History: Surgical History History of hysterectomy History of cholecystectomy History of appendectomy History of coronary artery stent placement History of colon resection <Lena Gross PA-C - Last Filed: 06/25/24 20:37> Family History Family History: Family History Father Family history of heart disease in male family member before age 55 Cancer, bladder, neck <Lena Gross PA-C - Last Filed: 06/25/24 20:37> Social History Social History: Social History Smoking packs per day: 1 Smoking cigarettes per day: 20.0 Years smoked: 30 Smoking pack-years: 30.00 Smoking status: Former smoker Tobacco type: cigarettes Second hand tobacco smoke exposure: No Smoking end date: 06/27/12 Alcohol intake: never Substance use: never Substance use type: does not use Do You Feel Safe in your Home?: Yes Lack of Transportation: No Lack of Food: Never True Current Housing: I Have Housing Concerned About Future Housing: No Difficulty Paying Gas/Electric Bills: No Difficulty Paying for Meds: YES Currently Unemployed: No Education: High School Diploma/GED Difficulty w/ Childcare or Family Care: No Living arrangements: with family Gender identity (if verbalized by the patient): Female Sexual Orientation (if Verbalized by the Patient): Straight or Heterosexual Spiritual care concerns: No Agree to blood products: Yes <Lena Gross PA-C - Last Filed: 06/25/24 20:37> Exam Narrative: APPEARANCE: Well appearing, no pain, no distress, well-nourished. HEAD: normocephalic, atraumatic. EYES: PERRLA/EOMI, conjunctivae clear. NOSE: Normal no drainage EARS:TMS clear with good light reflex. THROAT: Pharynx clear, no exudate. NECK: Supple. No adenopathy, no masses. RESPIRATORY: Airway patent, respirations nonlabored. Clear to auscultation bilaterally, no rales, rhonchi, wheezing. CARDIOVASCULAR: Regular rate and rhythm without murmurs rubs or gallops. ABDOMINAL: Soft, nontender, nondistended, normal bowel sounds MUSCULOSKELETAL: Left AC joint tenderness. NEURO: Alert. Cranial nerves II through XII intact. Grossly intact SKIN: Warm, dry. Normal Color <Nick Cummins MD - Last Filed: 06/21/24 19:22> Course Vital Signs Vital signs: Vital Signs Temperature 97.8 F 06/21/24 12:29 Pulse Rate 91 06/21/24 12:29 Respiratory Rate 18 06/21/24 12:29 Blood Pressure 137/87 06/21/24 12:29 Pulse Oximetry 100 06/21/24 12:29 Oxygen Delivery Room Air 06/21/24 12:29 Temperature 97.4 F L 06/21/24 18:10 Pulse Rate 72 06/21/24 18:10 Respiratory Rate 17 06/21/24 18:10 Blood Pressure 132/72 06/21/24 18:10 Pulse Oximetry 97 06/21/24 18:10 Oxygen Delivery Room Air 06/21/24 12:29 <Lena Gross PA-C - Last Filed: 06/25/24 20:37> Vital Signs Temperature 97.8 F 06/21/24 12:29 Pulse Rate 91 06/21/24 12:29 Respiratory Rate 18 06/21/24 12:29 Blood Pressure 137/87 06/21/24 12:29 Pulse Oximetry 100 06/21/24 12:29 Oxygen Delivery Room Air 06/21/24 12:29 Temperature 97.4 F L 06/21/24 18:10 Pulse Rate 72 06/21/24 18:10 Respiratory Rate 17 06/21/24 18:10 Blood Pressure 132/72 06/21/24 18:10 Pulse Oximetry 97 06/21/24 18:10 Oxygen Delivery Room Air 06/21/24 12:29 <Nick Cummins MD - Last Filed: 06/21/24 19:22> MDM - Fall MDM Narrative Medical decision making narrative: [age] old female presents emergency department for evaluation for a head injury and left shoulder pain. Head and neck CT were negative for acute injury. Patient's x-ray shoulder was also negative. Physical exam on the left shoulder was concerning for possible AC joint strain. Patient family were updated the results of the workup. Patient insists this was a mechanical fall. Patient states she is having increasing falls lately. Patient was advised to sit on the side of her bed for 30 seconds prior to ambulating to the bathroom. Patient is also advised that she may benefit from placing the bedside commode in the room. Patient and family are comfortable with plan for discharge and close follow-up. <Nick Cummins MD - Last Filed: 06/21/24 19:22> Differential Diagnosis Differential diagnosis: Likely other (Subdural hematoma, subarachnoid hemorrhage, skull fracture, shoulder fracture, cervical spine injury) <Nick Cummins MD - Last Filed: 06/21/24 19:22> Imaging Data Radiologist's impression: Impressions Head CT 06/21/24 14:20 IMPRESSION: No acute intracranial findings. Cervical Spine CT 06/21/24 14:21 IMPRESSION: 1. Moderate cervical spondylosis. No acute osseous abnormality. Shoulder X-Ray 06/21/24 14:26 IMPRESSION: Moderate to severe left glenohumeral and acromioclavicular osteoarthritis. No acute osseous abnormality. <Nick Cummins MD - Last Filed: 06/21/24 19:22> Critical Care Time Critical Care Time Critical Care Time: No <Lena Gross PA-C - Last Filed: 06/25/24 20:37> Discharge Plan Discharge Clinical Impression: Head injury Qualifiers: Encounter type: initial encounter Qualified Code(s): S09.90XA - Unspecified injury of head, initial encounter Strain of AC joint Qualifiers: Encounter type: initial encounter Laterality: left Qualified Code(s): S46.912A - Strain of unspecified muscle, fascia and tendon at shoulder and upper arm level, left arm, initial encounter <Lena Gross PA-C - Last Filed: 06/25/24 20:37> Patient Disposition: Home, Self-Care <Lena Gross PA-C - Last Filed: 06/25/24 20:37> Condition: Stable <Lena Gross PA-C - Last Filed: 06/25/24 20:37> Instructions: Antibiotic Form, Fall Prevention for Older Adults (ED), Head Injury (ED) <Lena Gross PA-C - Last Filed: 06/25/24 20:37> Additional Instructions: Have close follow-up with your primary care physician. If you have any worsening symptoms then please call or return to the emergency department. Follow head injury guidelines. Follow fall prevention suggestions. <Lena Gross PA-C - Last Filed: 06/25/24 20:37> Patient Language: Sudanese <Lena Gross PA-C - Last Filed: 06/25/24 20:37> Prescriptions: No Action atorvastatin 20 mg tablet 20 mg PO DAILY allopurinol 300 mg tablet 300 mg PO DAILY aspirin 325 mg tablet 325 mg PO DAILY melatonin 10 mg capsule 10 mg PO QHS cyclobenzaprine 10 mg tablet 10 mg PO TID potassium citrate 99 mg capsule 99 mg PO DAILY Tart Ruffin Extract 1,000 mg capsule 1,000 mg PO DAILY Ultra CoQ10 75 mg capsule 75 mg PO DAILY omeprazole 40 mg capsule,delayed release(DR/EC) 40 mg PO DAILY furosemide [Lasix] 20 mg tablet 20 mg PO DAILY valsartan 40 mg tablet 40 mg PO QPM <Lena Gross PA-C - Last Filed: 06/25/24 20:37> Follow-up/Referrals: Fry,Devyn Roberts MD [Primary Care Provider] - <Lena Gross PA-C - Last Filed: 06/25/24 20:37>
[2024-06-21 18:10] VITALS: BP 132/72; PULSE 72; RESP 17; TEMP 36.3; O2SAT 97
== END 2024-06-21 18:10 | disposition home or self-care (01) ==
PROVIDERS: Emergency Provider Emergency Medicine; PCP Family Medicine
DX: S09.90XA Unspecified injury of head, initial encounter (principal); S46.912A Strain of unspecified muscle, fascia and tendon at shoulder and upper arm level, left arm, initial encounter; M19.012 Primary osteoarthritis, left shoulder; E78.5 Hyperlipidemia, unspecified; I11.0 Hypertensive heart disease with heart failure; I50.9 Heart failure, unspecified; Z86.73 Personal history of transient ischemic attack (TIA), and cerebral infarction without residual deficits; I25.10 Atherosclerotic heart disease of native coronary artery without angina pectoris; Z85.038 Personal history of other malignant neoplasm of large intestine; W19.XXXA Unspecified fall, initial encounter
CPT/HCPCS: 70450; 72125; 73030; 99284

== ENCOUNTER 2024-08-08 14:21 | Outpatient (CLI) | payer MEDICARE, OTHER, SELFPAY ==
--- OUTSIDE RECORDS SUMMARY | 2024-08-08 14:28 | XMS_ITS | Encounter Summary ---
Author Organization [facility] Healthcare Address [address] [place] [address] Care Team Providers Care Aqua Ammonia Operator Name Role Phone Devyn Fry MD Primary Care Provider [phone] Reason for Visit * Rehabilitation - Outpatient (Routine) - Authorized Specialty Diagnoses / Procedures Referred By Contoswaldo t Referred To Contact Cardiac Rehabilitation Diagnoses Stented coronary artery Oz Cardona MD [address] [address] Phone: tel: fax: Oz Cardona MD [address] [address] Phone: tel: fax: Referral ID Status Reason Start Date Expiration Date Visits Requested Visits Authorized [id number] Authorized Specialty Services Required 07/31/2024 08/30/2025 36 36 Encounter Details Date Type Department Care Team (Late st Contact Info) Description 08/07/2024 12:15 PM DEICER FINISHER Office Visit [facility] [address] [place] [address] Stented coronary artery Social History Tobacco Use Types Packs/Day Years Used Date Smoking Tobacco: Former Smokeless Tobacco: Never Comments:Smoking History Pac ks/day: 1 Packs Alcohol Use Standard Drinks/Week Comments No 0 (1 standard drink = 0.6 oz pur e alcohol) AUDIT-C Answer Date Recorded Q1: How often do you have a drink containing alc ohol? Never 01/15/2022 Average Number of Drinks Not on file 022 Frequency of Binge Drinking Not on file 12/26 PHQ-2 Answer Date Recorded PHQ-2 Total Score (If total score is 3 or more points, staff should administer the PHQ-9) 1 08/07/2024 Personal Safety Answer Date Recorded Have you ever been in or are you currently in a harmful physical or emotional relationship or is someone making you feel afraid or unsafe? Denies 06/29/2024 Comments No Sex and Gender Information Value Date Recorded Sex Assigned at Not on file Legal Sex Female 7:57 AM DEICER FINISHER Gender Identity Not on file Sexual Orientation Not on file documented as of this encounter Last Filed Vital Signs Vital Sign Reading Time Taken Comments Blood Pressure 121/76 08/07/2024 12:00 PM DEICER FINISHER Pulse 75 08/07/2024 12:00 PM DEICER FINISHER Temperature - - Respiratory Rate 18 08/07/2024 12:0 0 PM DEICER FINISHER Oxygen Saturation 96% 08/07/2024 12: 00 PM DEICER FINISHER Inhaled Oxygen Concentration - - Weight 78.4 kg (172 lb 12.8 oz) 025 12:00 PM DEICER FINISHER Height 160 cm (5' 3 ) 08/07/2024 12:00 PM DEICER FINISHER Body Mass Index 30.61 08/07/2024 12:00 PM DEICER FINISHER documented in this encounter Progress Notes * Martha Thompson RN - 08/07/2024 12:15 PM CST Cardiac Rehab Individualized Treatment Plan Initial Evaluation Patient: Hui Dominguez : 1950 Referring Provider: Oz Cardona MD Date Entered into Program: 08/07/24 Encounter Diagnosis Name Primary? Stented coronary artery Allergies Allergen Reactions Penicillin Blisters Ciprofloxacin Hives Reaction: Hives, , Reaction: Hives, Alpha 1 Kiara- Quinazolines Unknown Opioids-Meperidine And Related Unknown Penicillins Other (See comments) Reaction: Unknown, Fenofibrate Unknown and Vomiting Ibuprofen Nausea And Vomiting, Unknown and Vomiting Quinolones Other (See comments), Unknown and Vomiting doesn't work Cardiac Rehab Physical Assessment Risk Stratification for Cardiac Event: Moderate Weight: 78.4 kg (172 lb 12.8 oz) Pulse: 75 Resp: 18 SpO2: 96 % BP: 121/76 Heart Sounds: S1, S2 Angina?: Yes Aggravating Factors: activity Relieved By: rest O2 Therapy: None (Room air) Breath Sounds: Clear Skin Color: Appropriate for ethnicity Skin Condition/Temp: Warm, Dry Personal History Highest Level of Education Completed: 12 Type of Occupation: retired Marital Status: Emergency Contacts (if different than demographics): same as facesheet Exercises Regularly: No Home Exercise Equipment: no Does anyone in your family or household make you afraid?: No PCP Name: [facility]'s Contact # (If Known): Dr. Cardona Cardiovascular History Cardiovascular History: [place], Angioplasty, Angina/chest pain, HTN, Ankle Swelling, Stroke/TIA, Hyperlipidemia, Prior Cardiac Rehab Medication Initial Assessment Medication Compliance?: Yes Preventative Medication: Aspirin, Clopidogrel, Beta Kiara, Statin, Diruretic, Influenza Vaccination Altered Cardiac Function Date: 06/29/24 Ejection Fraction: 67 Patient Specific Goal: to improve cardiac function Altered CR Intervention Education Related to DX: Yes Education What is Cardiac Rehab: Yes Patient keeps current medication list: Yes Medication Compliance?: Yes Exercise Days of exercise in the past 7 days: 0 Exercise Patient Goal: to reach 30 mins of aerobic exercise Exercise Intervention Date of Intervention: 08/07/24 Time Review Exercise Education: 1200 CR Education Exercise By: Martha Burnett RN Exercise safety: Yes Use of RPE Scale: Yes Warning signs: Yes S/S to Report: Yes Initial Exercise RX Mode: TM, NS, UBE, Bike Initial Exercise Frequency: 3 x week Initial Exercise Intensity: increase as tolerated Initial Exercise Target Heart Rate: Rest + 20-30 Initial Exercise Progresion: increase as tolerated Home Exercise Mode: stretching and wlaking Home Exercise Frequency: on nonrehab days Home Exercise Duration: 5-10 mins Home Exercise Progression: increase as tolerated Blood Pressure Do you have a history of hypertension?: Yes Medication: Yes Patient Goal: to keep resting b/p at 120/80 or less Education BP and Na/S/SE of CHF Date of Intervention: 08/07/24 Time Review Exercise Education: 1200 CR Education Exercise By: Martha Burnett RN Identify Target BP: Yes Lifestyle modification: Yes Lipids Date of Lipid Test: 04/11/24 Cholesterol: 120 Triglycerides: 119 HDL: 47 LDL: 49 Medication: Yes Patient Goal: to keep lipids WNL Weight Management Weight: 78.4 kg (172 lb 12.8 oz) Height: 160 cm (5' 3 ) BMI (Calculated): 30.6 Rate Your Plate: handout provided and reviewed with patient Patient Goal: to lose weight Diabetes Diabetes: No Patient Goal: to keep A1C <6 Weight Management Intervention CR Education Exercise By: Martha Burnett RN Date of Intervention: 08/07/24 Time Review Exercise Education: 1200 Education: Meal Planning: Yes Review Plate Method: Yes Portions/Dietary Fiber: Yes Food choices when eating out: Yes Set goal weight: goal to lsoe weight Diabetes Diabetes: No Patient Goal: to keep A1C <6 Diabetes Intervention CR Education Exercise By: Martha Burnett RN Date of Intervention: 08/07/24 Time Reviewed: 1200 Psychosocial History of Depression/Anxiety/Mental Illness: Unsure Assess prescence or absence of depression using valid screening tool: Yes Family Support: Yes Living Arrangements: Spouse/significant other Patient Specific Goal: to use coping and relaxation skills on daily basis Psychosocial Intervention CR Education Exercise By: Martha Burnett RN Date of Intervention: 08/07/24 Time Review Exercise Education: 1200 Stress/depression/sleep: Yes Types of stress/effects on heart: Yes Relaxation Techniques: Yes Identifies stressors: Yes S/S of depression: Yes Psychosocial medication compliance: (no meds of this type) Education Barriers to Learning: none Learns Best By: discuss Education Goal: diet, medication, s/s to report to MD Social History Tobacco Use Smoking Status Former Smokeless Tobacco Never Tobacco Comments Smoking History Packs/day: 1 Packs Counseling given: Not Answered Tobacco comments: Smoking History Packs/day: 1 Packs Past Medical History: Diagnosis Date Awareness under anesthesia Chronic coronary artery disease Coronary artery disease Chronic diarrhea Chronic kidney disease Colon cancer (CMS/HCC) (HCC) LÓPEZ (dyspnea on exertion) Gastroesophageal reflux disease GERD History of anemia History of blood transfusion History of TIA (transient ischemic attack) HX OTHER MEDICAL hx Gout; Comments: [facility] 04/19/2014 - HX OTHER MEDICAL hysterectomy with BSO; Comments: [facility] 04/19/2014 - HX OTHER MEDICAL breast biopsy-benign; Comments: [facility] 04/19/2014 - Hypertension Hypertension Irritable bowel syndrome Urinary tract infection Family History Problem Relation Age of Onset Stroke Mother Cerebral aneurysm Mother Cerebral aneurysm; Heart attack Father Bladder Cancer Father Cancer, bladder; Cause of : Cancer, bladder Unexpected Events: none Exercise Prescription Initial Date: 08/07/2024 THR: Rest + 20-30 Mode TM B NSTP AE Duration 3 3 3 3 Mets 1.2 1.3 1.9 1.5 Frequency: 3 x week Progression: Increase workload and intensity as tolerated within the parameters of the physician prescribed exercise. Dumbbells: Wt # 1-5 Sets 1 Reps 10-15 Note: Exercise workloads will be progressed gradually within limits of patient's ability. Progress based on Brog CR-10 RPE 3-4 and absence of untoward symptoms during exercise. Session Number: intake Current Met Level: 0 Martha Thompson RN 08/07/2024 Cosigned by Magnolia Adams DO at 08/08/2024 7:31 AM DEICER FINISHER ER FINISHER ER FINISHER documented in this encounter Plan of Treatment Not on file documented as of this encounter Visit Diagnoses Diagnosis Stented coronary artery Postsurgical percutaneous transluminal coronary angioplasty status documented in this encounter Orders Outpatient Referral Count Last Ordered Date Fir st Ordered Date AMB REFERRAL TO CARDIAC REHAB 1 08/07/2024 documented in this encounter Care Teams Aqua Ammonia Operator Relationship Specialty Start Date End Date Devyn Fry MD [facility] [place] [address] PCP - General Family Medicine 04/11/24 documented as of this encounter
--- OUTSIDE RECORDS SUMMARY | 2024-08-08 14:28 | XMS_ITS | Continuity of Care Document ---
Author Organization [facility] Address [id number] [place] [address] [place] [address] Phone Care Team Providers Care Research Hydrologist Name Role Phone Frandy Barrera DO Unavailable Unavailable Advance Directives Directive Yes / No Effective Date File Name No Information Encounters Encounter Description Practice Location Reason(s) For Visit Diagnoses Date Provider Providers Copied on Encounter [facility], [address] [place], [place], [id number], [place] tel:[phone] [facility] No Information Bruce Tabares. [address] [facility], [place], [address], [place]. tel: [phone] Family History Family Member Type Diagnosis Age [...]
--- OUTSIDE RECORDS SUMMARY | 2024-08-08 14:28 | XMS_ITS | Patient Health Record ---
Author Organization [facility] Address [address] [place] [address] YENNY Najera [id number] Care Team Providers Care Kennel Helper Name Role Phone DARRICK BAZAN ASHLEY Unavailable Unavailable ALLERGIES Allergen (clinical drug ingredient) Drug/Non Drug Allergy documented on EMR Reaction Allergy Type Onset Date Status Opioids (uncoded) nausea and vomiting Allergy Active fenofibrate Fenofibrate Unknown Drug Allergy Act janene ibuprofen Ibuprofen nausea and vomiting Drug Allergy Active Penicillin boils Drug Allergy Active Medicinal quinolone and acting as antibacterial agent (FN) Quinolones unknown Drug Allergy Active REASON FOR REFERRAL No Information MEDICATIONS Medication SIG (Take, Route, Frequency, Duration) Notes Start Date End Date Status Lasix 20 MG 1 tablet Orally Once a day for 30 day(s) Active Allopurinol 300 MG 1 tablet Orally Once a day for 30 day(s) Active Melatonin 10 MG as directed Orally Active Macrobid 100 MG 1 capsule at bedtime with food Orally Twice Daily Active Plavix 75 MG 1 tablet Orally Once a day for 30 day(s) Active Potassium 99 MG 1 tablet Orally Once a day for 30 day(s) Active Metoprolol Succinate 25 MG 1 capsule Ora lly Once a day for 30 day(s) Active Aspirin 81 81 MG 1 tablet Orally Once a day for 30 day(s) Active Valsartan 40 MG 1 tablet Orally Twic e a day for 30 day(s) Active Omeprazole 40 MG 1 capsule 30 minutes before morning meal Orally Once a day for 30 day(s) Active PROBLEMS Problem Type ICD Code Onset Dates Problem Status W/U Status Risk SNOMED Code Notes Problem 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) Active confirmed Mononeuropathy of lower limb (823685171) Problem Spondylolisthesis , lumbar region (M43.16) Active confirmed Acquired spondylolisthesis (270548229) Problem Spondylosis without myelopathy or radiculopathy, lumbar region (M47.816) Active confirmed Lumbosacral spondylosis without myelopathy (81478128) Problem Spondylosis without myelopathy or radiculopathy, lumbosacral region (M47.817) Active confirmed Lumbosacral spondylosis without myelopathy (disorder) (53536083) Problem Other intervertebral disc degeneration, lumbar region (M51.36) Active confirmed Degeneration of lumbar intervertebral disc (36766806) Problem Radiculopathy, lumbar region (M54.16) Active confirmed Lumbar radiculopathy (125936758) Problem Radiculopathy, lumbosacral region (M54.17) Active confirmed Lumbosacral radiculopathy (0813315) Problem Sciatica, unspecified side (M54.30) Active confirmed Sciatica (69088419) Problem Sciatica, right side (M54.31) Active confirmed Right side sci atica (162289024428072) Problem Sciatica, left side (M54.32) Active confirmed Left side scia eleonora (293923393777759) Problem Osseous stenosis of neural canal of lumbar region (M99.33) Active confirmed Spinal stenosis of lumbar region (13558971) Problem Osseous and subluxation stenosis of intervertebral foramina of lumbar region (M99.63) Active confirmed Spinal stenosis of lumbar region (17204132) Problem superintendent terminal (current) use of anticoagulants (Z79.01) Active confirmed Long-term curre nt use of anticoagulant (173411260) Problem Spinal stenosis, lumbar region with neurogenic 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) Active confirmed Neurogenic claudication (180574225) PLAN OF TREATMENT No Information Insurance Providers Payer Name Payer Address Payer Phone Subscriber Number Group Number Insured Name Patient Relationship to Insured Coverage Start Date Coverage End Date [place] [address] [address] [place] [phone] [id number] JAYCE MOTT Self - patient is the insured [employer] [address] [place] [phone] [id number] JAYCE MOTT Self - patient is the insured MEDICAL (GENERAL) HISTORY Medical History History ICD Code Fatty liver Bradycardia Sleep apnea [place] CAD Anemia Hypertension Shingles Gout TIA Colon Cancer - In Remission Surgical History Surgery Date(Month/Year) PTCA x2 2000 Cholecystectomy 2009 Hernia repair 2014
--- OUTSIDE RECORDS SUMMARY | 2024-08-08 14:29 | XMS_ITS | Clinical Summary ---
Author Organization [facility] [address] [address] [address] [place] [address] Care Team Providers Care Distributor Operator Name Role Phone Devyn Fry MD Primary Care Provider [phone] Allergies Active Allergy Reactions Criticality Noted Date Comments Alpha 1 Kiara- Quinazolines Unknown 07/08/2022 Ciprofloxacin Hives Medium 01/15/2019 Reaction: Hives, , Reaction: Hives, Fenofibrate Unknown,Vomiting Low 01/15/2019 Ibuprofen Nausea And Vomiting,Unknown,Vom iting Low 01/15/2019 Opioids-Meperidine And Related Unknown 12/15/2021 Penicillin Blisters High 07/07/2023 Penicillins Other (See comments) Reaction: Unknown, Quinolones Other (See comments),Unknown,Vo miting Low 01/15/2019 doesn't work Medications valsartan (DIOVAN) 40 mg tablet Take 1 tablet (40 mg total) by mouth daily May take 1/2 tablet Active melatonin 10 mg capsule Take 10 mg by mouth nightly 12/05/2019 Active cyclobenzaprine (FLEXERIL) 10 mg tablet Take 0.5 tablets (5 mg total) by mouth nightly as needed 03/12/2024 Active furosemide (LASIX) 20 mg tablet Take 1 tablet (20 mg total) by mouth daily 01/31/2024 Active omeprazole (PriLOSEC) 40 mg capsule Take 1 capsule (40 mg total) by mouth daily 04/02/2024 Active allopurinoL (ZYLOPRIM) 300 mg tablet Take 1 tablet (300 mg total) by mouth daily 01/31/2024 Active coenzyme Q10 200 mg capsule Take 10 mg by mouth daily Active sour munoz extract (TART MUNOZ EXTRACT ORAL) Take 1 tablet by mouth daily Active atorvastatin (LIPITOR) 20 mg tabletIndicatio ns: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 (HCC) Take 1 tablet (20 mg total) by mouth daily 30 tablet 11 05/23/2024 Active vitamin B complex capsule Take 1 capsule by mouth daily Active metoprolol tartrate (LOPRESSOR) 25 mg immediate release tablet Take 0.5 tablets (12.5 mg total) by mouth nightly Active potassium citrate 99 mg capsule Take 1 tablet by mouth daily Active zolpidem (AMBIEN) 5 mg tablet Take 1 tablet (5 mg total) by mouth nightly 06/21/2024 Active aspirin 81 mg enteric coated tablet Take 1 tablet (81 mg total) by mouth daily 90 tablet 3 06/30/2024 Active clopidogreL (PLAVIX) 75 mg tablet Take 1 tablet (75 mg total) by mouth daily 90 tablet 3 06/30/2024 Active Active Problems Problem Noted Date Diagnosed Date Stage 3b chronic kidney disease 07/03/2024 Chronic anemia 07/03/2024 LÓPEZ (dyspnea on exertion) 04/11/2024 Palpitations 04/11/2024 History of transient ischemic attack 04/11/2024 Former smoker 04/11/2024 Hyperlipidemia LDL goal <70 04/11/2024 Essential hypertension 04/11/2024 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 04/11/2024 Pancreatic cyst 12/22/2021 Overview (12/22/2021): Added automatically from request for surgery [id number] Encounters Date Type Department Care Team Description 08/07/2024 12:15 PM EDUCATIONAL ADVISOR Office Visit [facility] [address] [place] [id number] Stented coronary artery 07/30/2024 10:30 AM EDUCATIONAL ADVISOR Ancillary Procedure [facility] Cardiology [address] [place] [address] Positional lightheadedness 07/24/2024 Telephone [facility] Cardiology [address] [place] [address] Halie Cai NP 07/19/2024 11:00 AM EDUCATIONAL ADVISOR Office Visit [facility] Cardiology [address] [place] [address] [place] [phone] Halie Cai NP Positional lightheadedness (Primary Dx); Coronary artery disease involving aniak coronary artery of aniak heart without angina pectoris; Stage 3b chronic kidney disease (HCC) 07/03/2024 2:00 PM EDUCATIONAL ADVISOR Office Visit [address] [address] [address] [place] [phone] Halie Cai NP Positional lightheadedness (Primary Dx); Stage 3b chronic kidney disease (HCC); Coronary artery disease involving aniak coronary artery of aniak heart without angina pectoris; Status post coronary angiogram; Presence of stent in coronary artery 06/29/2024 10:00 AM EDUCATIONAL ADVISOR - 06/29/2024 11:30 AM EDUCATIONAL ADVISOR Surgery [facility] [address] [place] [address] Austin Richard MD RIGHT LEFT HEART CATHETERIZATION WITH CORONARY ANGIOGRAPHY GRAFT AND WITH OR WITHOUT LEFT VENTRICULOGRAPHY [id number] 06/29/2024 7:31 AM EDUCATIONAL ADVISOR - 06/29/2024 5:12 PM EDUCATIONAL ADVISOR Hospital Encounter [facility] [address] [place] [address] Austin Richard MD LÓPEZ (dyspnea on exertion); 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 (HCC) Discharge Disposition: Discharge to home or self care 05/23/2024 2:15 PM EDUCATIONAL ADVISOR Office Visit [facility] Cardiology [address] [place] [address] [place] [phone] Oz Cardona MD LÓPEZ (dyspnea on exertion) (Primary Dx); 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 (HCC); Essential hypertension; Hyperlipidemia LDL goal <70 05/23/2024 Telephone [facility] Cardiology [address] [place] [address] [address] [place] [phone] Oz Cardona MD from Last 3 Months Surgical History Surgery Date Site/Laterality Comments APPENDECTOMY Appendectomy CHOLECYSTECTOMY Cholecystectomy COLON SURGERY 06/27/2018 - 06/26/2019 HYSTERECTOMY HERNIA REPAIR Medical History Medical History Date Comments Hx Other Medical hx Gout; Commen ts: [facility] 04/19/2014 - Chronic coronary artery disease Coronary artery disease Hypertension Hypertension Gastroesophageal reflux disease GERD Hx Other Medical hysterectomy wi th BSO; Comments: [facility] 04/19/2014 - Hx Other Medical breast biopsy-b enign; Comments: [facility] 04/19/2014 - Awareness under anesthesia Chronic diarrhea Colon cancer (CMS/HCC) (HCC) Chronic kidney disease History of TIA (transient ischemic attack) LÓPEZ (dyspnea on exertion) Irritable bowel syndrome Urinary tract infection History of anemia History of blood transfusion Family History Medical History Relation Name Comments Bladder Cancer Father Cancer, bladd er; Cause of : Cancer, bladder Heart attack Father Cerebral aneurysm Mother Cerebral a neurysm; Stroke Mother Relation Name Status Comments Father (Age 82) Mother (Age 83) Social History Tobacco Use Types Packs/Day Years Used Date Smoking Tobacco: Former Smokeless Tobacco: Never Tobacco Cessation:Counseling Given: Not Answered Comments:Smoking History Packs/day: 1 Packs Alcohol Use Standard Drinks/Week Comments [...] on file Legal Sex Female 7:57 AM EDUCATIONAL ADVISOR Gender Identity Not on file Sexual Orientation Not on file Obstetrics History Last Filed Vital Signs Vital Sign Reading Time Taken Comments Blood Pressure 121/76 08/07/2024 12:00 PM EDUCATIONAL ADVISOR Pulse 75 08/07/2024 12:00 PM EDUCATIONAL ADVISOR Temperature 36.5 C (97.7 F) 06/29/2024 8:00 AM EDUCATIONAL ADVISOR Respiratory Rate 18 08/07/2024 12:0 0 PM EDUCATIONAL ADVISOR Oxygen Saturation 96% 08/07/2024 12: 00 PM EDUCATIONAL ADVISOR Inhaled Oxygen Concentration - - Weight 78.4 kg (172 lb 12.8 oz) 025 12:00 PM EDUCATIONAL ADVISOR Height 160 cm (5' 3 ) 08/07/2024 12:00 PM EDUCATIONAL ADVISOR Body Mass Index 30.61 08/07/2024 12:00 PM EDUCATIONAL ADVISOR Plan of Treatment Health Maintenance Due Date Last Done Comments Breast Cancer Screening-Mammogram 1950 Colon Cancer Screening-Colonoscopy 1950 Hepatitis C Screening 1950 Osteoporosis Screening-Bone Density Scan 1950 DTaP/Tdap/Td Vaccine (1 - Tdap) 1960 Hepatitis B Screening 1967 Zoster Vaccine (1 of 2) 1999 Well Visit 65+ 2014 Pneumococcal vaccine 65+ (2 of 2 - PCV) 04/03/2020 04/03/2019 Covid-19 Vaccine (5 - 2023-2 5 season) 2024 10/01/2021, 04/25/2021, 09/09/2020, Additional history exists Influenza Vaccine (#1) 2024 , 04/03/2019, 04/14/2018, Additional history exists Fall Risk Assessment 06/29/2025 06/29/2024 Depression Screening 08/07/2025 08/07/2024 Medical Devices Implanted Type Area Work Study Student Device Identifier Shelf Expiration Date Model / Serial / Lot Medtronic Card Vasc Surgery 3.0 X 18mm Marcelo Shannon Rx Coronary Stent [id number] - [id number] Implanted:Qty: 1 on 06/29/2024 by Austin Richard MD at [facility] Medtronic Card Vasc Surgery 03/01/2027 [id number] / / [id number] Re[employer] V[employer] System Closure Repair Femoral Artery Suture Mediated Perclose Prostyle 29943-19 - [id number] Implanted:Qty: 1 on 06/29/2024 by Austin Richard MD at [facility] [employer] 04/26/2026 [id number] / / [id number] Access Closure Inc Mynx Control 6-7fr 2 Mode Balloon Catheter Sealant Lock Syringe [id number] - [id number] Implanted:Qty: 1 on 06/29/2024 by Ausitn Richard MD at [facility] Right: Vein Access Closure Inc 03/01/2026 [id number] / / [id number] Procedures Procedure Name Priority Date/Time Associated Diagnosis Comments VASCULAR ACCESS US GUIDANCE Routine 06/29/2024 11:57 AM EDUCATIONAL ADVISOR LÓPEZ (dyspnea on exertion) 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 (HCC) CORONARY OCT, 1ST VESSEL Routine 025 11:57 AM EDUCATIONAL ADVISOR LÓPEZ (dyspnea on exertion) 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 (HCC) PERCUTANEOUS CORONARY LITHROTRIPSY W/ PCI (+) [id number] Routine 06/29/2024 11:57 AM EDUCATIONAL ADVISOR LÓPEZ (dyspnea on exertion) 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 (HCC) ENRIQUE MAJOR CORONARY Routine 06/29/2024 11 :57 AM EDUCATIONAL ADVISOR LÓPEZ (dyspnea on exertion) 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 (HCC) RIGHT LEFT HEART CATHETERIZATION CORONARY GRAFT WITH WITHOUT LEFT VENTRICULOGRAPHY ANGIOGRAM Routine 06/29/2024 11:57 AM EDUCATIONAL ADVISOR LÓPEZ (dyspnea on exertion) 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 (HCC) POCT ACTIVATED CLOTTING TIME, HIGH RANGE Routine 06/29/2024 11:35 AM EDUCATIONAL ADVISOR POCT ACTIVATED CLOTTING TIME, HIGH RANGE Routine 06/29/2024 11:14 AM EDUCATIONAL ADVISOR MODERATE SEDATION SAME MD PETERSEN ADDL 15 MIN [id number] 06/29/2024 10:08 AM EDUCATIONAL ADVISOR 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 (HCC) MODERATE SEDATION 06/29/2024 10: 08 AM EDUCATIONAL ADVISOR 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 (HCC) EGFR STAT 06/29/2024 7:48 AM EDUCATIONAL ADVISOR DIFFERENTIAL AUTO STAT 06/29/2024 7:4 8 AM EDUCATIONAL ADVISOR CBC WITH AUTO DIFFERENTIAL STAT 06/29/2024 7:48 AM EDUCATIONAL ADVISOR BASIC METABOLIC PANEL STAT 06/29/2024 7:48 AM EDUCATIONAL ADVISOR from Last 3 Months Results * RIGHT LEFT HEART CATHETERIZATION CORONARY GRAFT WITH WITHOUT LEFT VENTRICULOGRAPHY ANGIOGRAM, ENRIQUE MAJOR CORONARY, PERCUTANEOUS CORONARY LITHROTRIPSY W/ PCI (+) [id number], CORONARY OCT, 1ST VESSEL, VASCULAR ACCESS US GUIDANCE (06/29/2024 11:57 AM EDUCATIONAL ADVISOR) Anatomical Region Laterality Modality X-Ray Angiograph y Narrative 06/29/2024 12:25 PM EDUCATIONAL ADVISOR CARDIAC CATHETERIZATION REPORT Jayce Mott IP ENCOUNTER: [id number] Date of Procedure: 06/29/2024 BIRTHDATE: 1950 HAT CUTTER: Austin Richard MD REFERRING PHYSICIAN: Dr. Cardona PREPROCEDURE DIAGNOSES: Angina CCS III PROCEDURES PERFORMED: Moderate sedation that started at 1035 and ended at 1157 using 2mg of Versed and 200mcg of fentanyl. The registered nurse was Kyra Montes. Right heart catheterization Selective left and right coronary angiogram. Left heart catheterization with measurement of LVEDP and gradient across the aortic valve. Intravascular lithotripsy Percutaneous coronary intervention Intravascular ultrasound FINDINGS: 1. Left main: The left main coronary artery is widely patent without any significant obstructive disease. 2. Left anterior descending: The LAD gives off 1 major diagonal branch. The diagonal branch has luminal irregularities. The mid LAD has a patent stent with mild InStent restenosis. The mid to distal LAD has a section of myocardial bridge. 3. Left circumflex: The left circumflex artery is a codominant and the main marginal branches have mild luminal irregularities without any significant obstructive angiographic disease. 4. Right coronary artery: The RCA is a codominant vessel that has a 99% InStent restenosis. 5. Left ventricle: A. End-diastolic pressure 27 mmHg. B. LV gram deferred. C. No significant gradient across aortic valve on catheter pullback. 6. Opening aortic pressure 127/64 and closing aortic pressure 169/85 ACCESS: Right common femoral artery and right femoral vein COMPLICATIONS: None ESTIMATED BLOOD LOSS: 5 mL PROCEDURAL DESCRIPTION: Informed consent was obtained from patient. Patient was then brought into the research laboratory specialist and was draped and prepped in the usual manner. Moderate sedation was given and the right groin was subcutaneously injected with 1% lidocaine. The right femoral vein was accessed using a 7 Tamazight sheath via micropuncture needle and modified Seldinger technique under ultrasound guidance. The right common femoral artery was accessed using a 5Fr sheath via a micropuncture needle and modified Seldinger technique under ultrasound guidance. A 7 Tamazight [place] catheter was advanced into the right atrium, right ventricle, pulmonary artery, and into the pulmonary wedge position. Pressures were obtained and blood oximetry was obtained. RA 11 RV 37/4 (12) PA 40/18 (25) PCWP 13 (v 14) LVEDP 27 Selective left coronary angiogram was done using a 5F JL4 catheter with the tip of the catheter placed in the left main coronary artery. Selective right coronary angiogram was done using JR4 catheter with the tip of the catheter placed in the right coronary artery. The JL4 diagnostic catheter slipped across the aortic valve into the left ventricle where LVEDP was obtained and the gradient across aortic valve. INTERVENTION Right iliofemoral angiogram was performed to verify acceptable access site. The 5F arterial sheath was upsized to a 6F sheath. A 6FJR4 guide catheter engaged the ostium of the RCA. Heparin was given to achieve therapeutic ACT. A Runthrough wire was negotiated down into the rPDA. A 3.0 x 12mm C2 Shockwave IVL could not pass the lesion and thus a 3.0 x 12mm semi-compliant balloon was used to dilate the lesion. After modification, the 3.0 x 12 C2 Shockwave IVL was delivered into the lesion where multiple rounds of therapy was used to treat the calcific lesion. A intravascular ultrasound was then advanced into the stenotic portion and images were obtained verifying a degree of neointimal hyperplasia and calcification as well as an area of stent underexpansion. A 3.0 x 18mm Marcelo Shannon ENRIQUE was deployed in the proximal RCA and post dilated with a 3.5 x 12mm NC balloon to high ryan with excellent angiographic results. Hemostasis was achieved with a Perclose device at the end of the procedure. CONCLUSIONS Successful IVUS guided and IVL shockwave assisted PCI to the proximal RCA ISR with a 3.0 x 18 Marcelo Shannon ENRIQUE; post dilated with a 3.5 x 12 NC balloon to high ryan with excellent angiographic results. PLAN Continue ASA 81mg PO daily Start clopidogrel 75mg PO daily Continue oral lasix and aggressive risk factor modification us Austin Richard MD CV CARDIAC CATH PROCEDURES Final Result * (ABNORMAL) POC Activated Clotting Time, High Range (06/29/2024 11:35 AM EDUCATIONAL ADVISOR) Pathologist [facility] ACT 211(H) 87 - 138 sec Blood 06/29/2024 11:3 5 AM EDUCATIONAL ADVISOR 06/29/2024 11:35 AM EDUCATIONAL ADVISOR us Austin Richard MD LAB BLOOD ORDERABLES Final Resul t Performing Organization Address City/[facility] Co de Phone Number [facility] [address] [address] [address] * (ABNORMAL) POC Activated Clotting Time, High Range (06/29/2024 11:14 AM EDUCATIONAL ADVISOR) Pathologist [facility] ACT 192(H) 87 - 138 sec Blood 06/29/2024 11:1 4 AM EDUCATIONAL ADVISOR 06/29/2024 11:14 AM EDUCATIONAL ADVISOR us Austin Richard MD LAB BLOOD ORDERABLES Final Resul t Performing Organization Address [facility] Co de Phone Number [facility] [address] [address] [address] * (ABNORMAL) eGFR (06/29/2024 7:48 AM EDUCATIONAL ADVISOR) [facility] eGFR 43(L) >=60 mL/min/1. 73 m2 Comment: Interpretive Data Reference Interval Normal >/= 90 mL/min/1.73m2 Mildly decreased* 60 - 89 mL/min/1.73m2 Mildly to moderately decreased 45 - 59 mL/min/1.73m2 Moderately to severely decreased 30 - 44 mL/min/1.73m2 Severely decreased 15 - 29 mL/min/1.73m2 Kidney Failure < 15 mL/min/1.73m2 *Relative to young adult level Estimated glomerular filtration rate is determined by the 2020 CKD-EPI equation recommended by the National Kidney Foundation (A Unifying Approach to GFR Estimation: Recommendations of the NKF-ASK Task Force on Reassessing the Inclusion of Race in Diagnosing Kidney Disease, JASN 2020). The CKD-EPI equation should not be used for patients with unstable renal function and has not been validated in children and those over 70. Current interpretive data was last reviewed 2021. Blood 06/29/2024 7:48 AM EDUCATIONAL ADVISOR 06/29/2024 8:04 AM EDUCATIONAL ADVISOR us Austin Richard MD LAB BLOOD ORDERABLES Final Resul t [facility] [address] [place] [address] * Differential, auto (06/29/2024 7:48 AM EDUCATIONAL ADVISOR) Neutrophil abs 3.0 1.5 - 6.5 K/cumm Imm gran abs 0.0 0.0 - 0.1 K/cumm [facility] Lymphocyte abs 1.4 0.8 - 3.3 K/cumm [facility] Monocyte abs 0.6 0.2 - 0.8 K/cumm [facility] Eosinophil abs 0.1 0.0 - 0.5 K/cumm [facility] Basophil abs 0.1 0.0 - 0.1 K/cumm [facility] Neutrophil pct 58.1 % [facility] Comment: Interpretive Data Percent cell count reference ranges are not reported, since discordance with absolute values may lead to misinterpretation of CBC data. Current Interpretive Data was last revised on 2017. Imm gran pct 0.2 % [facility] Comment: Interpretive Data Percent cell count reference ranges are not reported, since discordance with absolute values may lead to misinterpretation of CBC data. Current Interpretive Data was last revised on 2017. Lymphocyte pct 26.4 % [facility] Comment: Interpretive Data Percent cell count reference ranges are not reported, since discordance with absolute values may lead to misinterpretation of CBC data. Current Interpretive Data was last revised on 2017. Monocyte pct 11.5 % [facility] Comment: Interpretive Data Percent cell count reference ranges are not reported, since discordance with absolute values may lead to misinterpretation of CBC data. Current Interpretive Data was last revised on 2017. Eosinophil pct 2.7 % [facility] Comment: Interpretive Data Percent cell count reference ranges are not reported, since discordance with absolute values may lead to misinterpretation of CBC data. Current Interpretive Data was last revised on 2017. Basophil pct 1.1 % [facility] Comment: Interpretive Data Percent cell count reference ranges are not reported, since discordance with absolute values may lead to misinterpretation of CBC data. Current Interpretive Data was last revised on 2017. Blood 06/29/2024 7:48 AM EDUCATIONAL ADVISOR 06/29/2024 8:03 AM EDUCATIONAL ADVISOR us Austin Richard MD LAB BLOOD ORDERABLES Final Resul t [facility] [address] [place] [address] * (ABNORMAL) CBC with auto differential (06/29/2024 7:48 AM EDUCATIONAL ADVISOR) WBC 5.2 3.8 - 9.9 K/cumm Hgb 10.1(L) 11.9 - 15.5 g/dL [facility] Hct 33.6(L) 35.6 - 45.5 % [facility] Plt 243 150 - 400 K/cumm [facility] MPV 10.0 9.1 - 12.3 fL [facility] RBC 3.44(L) 3.90 - 5.20 M/cumm [facility] MCV 97.7(H) 81.3 - 96.4 fL [facility] MCH 29.4 27.1 - 33.3 pg [facility] MCHC 30.1(L) 32.3 - 35.7 g/dL [facility] RDW CV 15.0(H) 11.1 - 14.9 % [facility] RDW SD 53.4(H) 35.7 - 48.1 fL [facility] NRBC abs 0.00 0.00 - 0.01 K/cumm [facility] Blood 06/29/2024 7:48 AM EDUCATIONAL ADVISOR 06/29/2024 8:03 AM EDUCATIONAL ADVISOR Narrative [facility] - 06/29/2024 8:08 AM EDUCATIONAL ADVISOR If most recent labs were drawn prior to 4 AM, draw only prior to initiating procedure. Austin Richard MD LAB BLOOD ORDERABLES Final Resul t Performing Organization Address City/[facility]/ZIP Co de Phone Number [facility] [address] [address] [place] [address] * (ABNORMAL) Basic metabolic panel (06/29/2024 7:48 AM EDUCATIONAL ADVISOR) Pathologist [facility] Sodium 141 135 - 145 mmol/L Potassium, pl 4.4 3.3 - 4.9 mmol/L [facility] Chloride 111(H) 97 - 110 mmol/L [facility] CO2 20(L) 22 - 32 mmol/L [facility] Anion gap 10 2 - 15 mmol/L [facility] BUN 23 6 - 25 mg/dL [facility] Creatinine 1.31(H) 0.60 - 1.10 mg/dL [facility] Glucose 78 70 - 199 mg/dL [facility] Comment: Interpretive Data Fasting glucose >/= 126 mg/dl is diagnostic for diabetes. Fasting is defined as no caloric intake for at least 8 hours. Fasting glucose between 100 mg/dl to 125 mg/dl is diagnostic of prediabetes. In a patient with classic symptoms of hyperglycemia or hyperglycemic crisis, a random glucose >/= 200 mg/dl is diagnostic for diabetes. In the absence of unequivocal hyperglycemia, results should be confirmed by repeat testing. The classification and Diagnosis of Diabetes Diabetes Care 202; 46: S19-S40. Current interpretive data was last revised 2022. Calcium 10.1 8.5 - 10.3 mg/dL [facility] Blood 06/29/2024 7:48 AM EDUCATIONAL ADVISOR 06/29/2024 8:04 AM EDUCATIONAL ADVISOR Austin Richard MD LAB BLOOD ORDERABLES Final Resul t [facility] [address] [place] [address] from Last 3 Months Insurance [employer] MEDICARE [employer]IC[employer] Member Subscriber Plan / Payer (Ef fective 2014-Present) Name:Jayce Mott Relation to Subscriber:Self Name:Jayce Mott Payer ID:[id number] Group ID:Not on file Type:COMMERCIAL Address: [facility] [address] MEDICARE [employer] Member Subscriber Plan / Payer (Ef fective 2014-Present) Name:Jayce Mott Relation to Subscriber:Self Name:Jayce Mott Payer ID:[id number] Group ID:Not on file Type:COMMERCIAL Address: [facility] [address] Advance Directives For more information, please contact: [phone] * Full Code (Latest Code Status on File) Date Activated Date Inactivated Comments 06/29/2024 1:58 PM 06/29/2024 9:12 PM * Full Code Date Activated Date Inactivated Comments 01/15/2022 8:39 AM 01/15/2022 2:41 PM Care Teams Distributor Operator Relationship Specialty Start Date End Date Devyn Fry MD [address] [place] [address] PCP - General Family Medicine 04/11/24
--- OUTSIDE RECORDS SUMMARY | 2024-08-08 14:29 | XMS_ITS | Clinical Summary ---
Author Organization [facility] Address [address] [place] [address] Phone Care Team Providers Care Pipe Line Gauger Name Role Phone Ramos Vera MD Primary Care Provider [phone] Allergies Active Allergy Reactions Criticality Noted Date Comments Ciprofloxacin Other (See Comments) 09/25/2020 doesn't work Penicillins Hives High 09/25/2020 Medications rosuvastatin (CRESTOR) 20 mg tablet Take 20 mg by mouth daily at bedtime. Active metoprolol tartrate (LOPRESSOR) 25 mg tablet Take 12.5 mg by mouth daily at bedtime. Active aspirin (ECOTRIN EC) 81 mg Tablet, Delayed Release (E.C.) Take 81 mg by mouth daily at bedtime. Active valsartan (DIOVAN) 40 mg tablet Take 40 mg by mouth daily. Active omeprazole (PriLOSEC) 40 mg Capsule, Delayed Release(E.C.) Take 40 mg by mouth daily. Active furosemide (LASIX) 20 mg tablet Take 20 mg by mouth daily. Active cyanocobalamin 1,000 mcg Tablet Take 1,000 mcg by mouth daily. Active sour ruffin extract (Tart Ruffin Extract) 1,000 mg Capsule Take 1,200 mg by mouth daily. Prevention gout Active potassium chloride (KLOR-CON) 10 mEq Extended Release tablet Take 10 mEq by mouth daily. Active omega-3 fatty acids-fish oil 300-1,000 mg Capsule Take 1 Capsule by mouth daily. Active allopurinoL (ZYLOPRIM) 100 mg tablet Take 100 mg by mouth daily. Active MELATONIN ORAL Take 10 mg by mouth daily. Active nitrofurantoin macrocrystaL (MACRODANTIN) 100 mg Capsule Take 100 mg by mouth 4 times daily with meals and at bedtime. Active colestipol HCl (COLESTIPOL ORAL) Take 10 mg by mouth daily. Active Active Problems No known active problems Encounters Date Type Department Care Team Description 07/19/2024 External Device Data [facility] ABSTRACTION Provider, Abstract 07/18/2024 External Device Data [facility] ABSTRACTION Provider, Abstract 07/17/2024 External Device Data [facility] ABSTRACTION Provider, Abstract 07/10/2024 External Device Data [facility] ABSTRACTION Provider, Abstract 05/29/2024 Orders Only [facility] Oncology and Hematology - [place] [address] [place] [address] Alvin Cueto MD 05/22/2024 Orders Only [facility] Oncology and Hematology - [place] [address] [place] [address] Alvin Cueto MD 05/21/2024 Telephone [facility] Oncology and Hematology - [place] [address] [place] [address] Alvin Cueto MD Lab Results 05/18/2024 Orders Only [facility] Oncology and Hematology - [place] [address] [place] [address] Alvin Cueto MD 05/15/2024 Telephone [facility] Oncology and Hematology - [place] [address] [place] [address] Alvin Cueto MD Breathing Problem from Last 3 Months Family History Medical History Relation Name Comments No Known Problems Brother No Known Problems Daughter Cancer Father Heart Disease Father No Known Problems Mother Breast Cancer Sister 1 COPD Sister 2 No Known Problems Sister 3 No Known Problems Son 1 No Known Problems Son 2 Relation Name Status Comments Brother Alive Daughter Alive Father Mother Sister 1 Alive Sister 2 Sister 3 Son 1 Alive Son 2 Alive Social History Tobacco Use Types Packs/Day Years Used Date Smoking Tobacco: Former Cigarettes 1 30 1 3 - 2012 Smokeless Tobacco: Never Tobacco Cessation:Counseling Given: Not Answered Alcohol Use Standard Drinks/Week Comments Never 0 (1 standard drink = 0.6 oz pur e alcohol) Comments No Sex and Gender Information Value Date Recorded Sex Assigned at Not on file Legal Sex Female 10:02 AM CDT Gender Identity Not on file Sexual Orientation Not on file Last Filed Vital Signs Vital Sign Reading Time Taken Comments Blood Pressure 113/68 02/13/2024 10:43 AM CDT Pulse 68 02/13/2024 10:43 AM CDT Temperature 36.7 C (98 F) 02/13/2024 10:43 AM CDT Respiratory Rate 18 02/13/2024 10:43 AM CDT Oxygen Saturation 93% 02/13/2024 10:43 AM CDT Inhaled Oxygen Concentration - - Weight 75.8 kg (167 lb) 02/13/2024 10:43 AM CDT Height 160 cm (5' 3 ) 05/25/2022 1:47 PM WEB APPLICATIONS ADMINISTRATOR Body Mass Index 29.58 05/25/2022 1:47 PM WEB APPLICATIONS ADMINISTRATOR Plan of Treatment Upcoming Encounters Date Type Department Care Team (Late st Contact Info) Description 08/16/2024 11:00 AM WEB APPLICATIONS ADMINISTRATOR Office Visit [facility] Oncology and Hematology - [place] [address] [place] [address] [address] [place] [address] Alvin Cueto MD [address] [facility] [address] [place] [address] Health Maintenance Due Date Last Done Comments DTAP/TDAP/TD VACCINES (1 - Tdap) 1968 PNEUMOCOCCAL VACCINE 65+ YEARS (1 of 2 - PCV) 08/21/18 69 Traditional Medicare (O) Annual Wellness Visit 08/21 BREAST CANCER SCREENING 1989 COLORECTAL SCREENING 1994 Colorectal Cancer Screening 1994 FIT-DNA Q 3 years 1994 FIT/FOBT Q 1 year 1994 Flex Sig/CT Colonography Q 5 years 1994 ZOSTER VACCINE (1 of 2) 1999 RSV VACCINE (60+ or ) (1 - Risk 60-74 years 1-dose series) 2009 OSTEOPOROSIS SCREENING 2014 INFLUENZA VACCINE (#1) 2024 Procedures Procedure Name Priority Date/Time Associated Diagnosis Comments PROTEIN ELECTROPHORESIS, CSF Routine 05/23/2024 8:38 AM WEB APPLICATIONS ADMINISTRATOR KAPPA/LAMBDA LIGHT CHAINS Routine 2023 3:27 PM WEB APPLICATIONS ADMINISTRATOR COMPREHENSIVE METABOLIC PANEL Routine 05/16/2024 2:10 PM WEB APPLICATIONS ADMINISTRATOR CBC WITH DIFFERENTIAL Routine 05/16/2024 12:14 PM WEB APPLICATIONS ADMINISTRATOR from Last 3 Months Results * PROTEIN ELECTROPHORESIS, CSF (05/23/2024 8:38 AM WEB APPLICATIONS ADMINISTRATOR) Cerebrospinal fluid CEREBROSPINAL FLUID / Unknown us Alvin Cueto MD BODY FLUIDS AND STOOLS Final Re sult * KAPPA/LAMBDA, FREE LIGHT CHAINS (05/22/2024 3:27 PM WEB APPLICATIONS ADMINISTRATOR) Blood us Alvin Cueto MD CHEMISTRY ORDERABLES Final Resu lt * COMPREHENSIVE METABOLIC PANEL (05/16/2024 2:10 PM WEB APPLICATIONS ADMINISTRATOR) Blood us Alvin Cueto MD CHEMISTRY ORDERABLES Final Resu lt * CBC WITH DIFFERENTIAL (05/16/2024 12:14 PM WEB APPLICATIONS ADMINISTRATOR) Blood us Alvin Cueto MD HEMATOLOGY ORDERABLES Final Res ult from Last 3 Months Insurance MEDICARE PART A AND B [employer] SUPP RX [facility] Medicare Part D MEDICARE PART A AND B [employer] [place] SU[employer] Care Teams Pipe Line Gauger Relationship Specialty Start Date End Date Ramos Vera MD [address] [place] [address] PCP - General Family Practice 09/29/20
--- OUTSIDE RECORDS SUMMARY | 2024-08-08 14:29 | XMS_ITS | Clinical Summary ---
Author Organization [facility] Address Formerly [facility] [place] [address] Care Team Providers Care Skin Care Consultant Name Role Phone Devyn Fry MD Primary Care Provider [phone] Allergies Active Allergy Reactions Criticality Noted Date Comments Penicillin G Rash,Redness Low 06/04/2024 Medications allopurinol (ZYLOPRIM) 300 MG tablet Take 1 tablet (300 mg total) by mouth daily. 04/26/20 24 Active atorvastatin (LIPITOR) 20 MG tablet Take 1 tablet (20 mg total) by mouth daily. 05/23/20 24 Active colestipol (COLESTID) 1 g tablet Take 1 tablet (1 g total) by mouth 2 (two) times daily. 08/14/19 24 Active furosemide (LASIX) 20 MG tablet Take 1 tablet (20 mg total) by mouth daily. 04/26/20 24 Active metoprolol tartrate (LOPRESSOR) 25 MG tablet Take 1 tablet (25 mg total) by mouth daily. 07/11/19 24 Active mupirocin (BACTROBAN) 2 % ointment Apply topically 2 (two) times daily. Apply to affected area 07/02/19 24 Active neomycin-polymy lavonne-dexamethaso ne (MAXITROL) 3.5-51209-2.1 Ointment APPLY THIN RIBBON ON UPPER AND LOWER EYE LIDS OF BOTH EYES NEEDEDFORSEVERE ITCHINESS. 07/08/19 24 Active valsartan (DIOVAN) 40 MG tablet Take 1 tablet (40 mg total) by mouth daily. 05/23/20 24 Active rosuvastatin (CRESTOR) 20 MG tablet Take 1 tablet (20 mg total) by mouth daily. 10/31/20 24 Active omeprazole (PRILOSEC) 40 MG capsule Take 1 capsule (40 mg total) by mouth daily. 04/02/20 Active zolpidem (AMBIEN) 5 MG tablet Take 1 tablet (5 mg total) by mouth nightly at bedtime. 05/14/20 Active potassium chloride CR (MICRO-K) 10 MEQ CR capsule Take 1 capsule (10 mEq total) by mouth 2 (two) times daily. Active aspirin 325 MG tablet Take 1 tablet (325 mg total) by mouth daily. Active Melatonin 10 MG TABLET DISPERSIBLE as directed Orally Active Coenzyme Q10 10 MG capsule Take 10 mg by mouth daily. Active Active Problems Problem Noted Date Diagnosed Date Heart disease 06/04/2024 Kidney disease 06/04/2024 Encounters Date Type Department Care Team Description 06/04/2024 8:28 AM BUSINESS OFFICE COORDINATOR - 06/04/2024 11:59 PM BUSINESS OFFICE COORDINATOR Hospital Encounter [facility] [place] [address] [place] [address] MD Discharge Disposition: Home or Self Care (Routine Discharge) 06/04/2024 7:20 AM BUSINESS OFFICE COORDINATOR Office Visit [facility] - [facility] [address] [facility], [address] [place] [address] MD Establish Care (Has memory concerns./Here with friend. /Has fallen twice in 2 days. Off balance) 06/04/2024 Travel from Last 3 Months Social History Tobacco Use Types Packs/Day Years Used Date Smoking Tobacco: Never Assessed PHQ-2 Answer Date Recorded Patient Health Questionnaire-2 Score 0 06/04/2024 Comments Unknown Sex and Gender Information Value Date Recorded Sex Assigned at Not on file Legal Sex Female 9:53 AM CDT Gender Identity Not on file Sexual Orientation Not on file Last Filed Vital Signs Vital Sign Reading Time Taken Comments Blood Pressure 109/70 06/04/2024 7:38 AM BUSINESS OFFICE COORDINATOR Pulse 75 06/04/2024 7:38 AM BUSINESS OFFICE COORDINATOR Temperature - - Respiratory Rate - - Oxygen Saturation 98% 06/04/2024 7:38 AM BUSINESS OFFICE COORDINATOR Inhaled Oxygen Concentration - - Weight 75.8 kg (167 lb) 06/04/2024 7:38 AM BUSINESS OFFICE COORDINATOR Height 160 cm (5' 3 ) 06/04/2024 7:38 AM BUSINESS OFFICE COORDINATOR Body Mass Index 29.58 06/04/2024 7:38 AM BUSINESS OFFICE COORDINATOR Plan of Treatment Health Maintenance Due Date Last Done Comments Colorectal Cancer Screening Colonoscopy (10 Years) 1949 Hepatitis C 1967 DTaP, Tdap and Td Vaccines (1 - Tdap) 1968 Mammogram Screening 1989 Annual Medicare Wellness Visit 2014 Dexa Scan (General) 2014 PHQ-2 (Physician [place]) 06/27/2024 06/04/2024 Zoster Vaccines Completed 12/29/2022, 10/27/2022 Influenza Adult Completed 02/07/2024, 01/25, 04/03/2019, Additional history exists Pneumococcal Vaccine: 65+ Years Completed 02/07/2024, 04/03/2019 RSV Immunization or 60+ Years Completed 02/07/2024, 02/12/2023 COVID-19 Vaccine Completed 03/13/2024, , 03/22/2022, Additional history exists Meningococcal B Vaccine Aged Out No l onger eligible based on patient's age to complete this topic Meningococcal Vaccine Aged Out No kelli kellen eligible based on patient's age to complete this topic RSV Immunizations Under 20 Months Aged Out No longer eligible based on patient's age to complete this topic Procedures Procedure Name Priority Date/Time Associated Diagnosis Comments CBC W/DIFF AUTOMATED Routine 06/04/2024 8:37 AM BUSINESS OFFICE COORDINATOR Memory loss COMPREHENSIVE METABOLIC PANEL Routine 06/04/2024 8:37 AM BUSINESS OFFICE COORDINATOR Memory loss HOMOCYSTEINE Routine 06/04/2024 8:37 AM BUSINESS OFFICE COORDINATOR Memory loss METHYLMALONIC ACID Routine 06/04/2024 8: 37 AM BUSINESS OFFICE COORDINATOR Memory loss TSH W/REFLEX Routine 06/04/2024 8:37 AM BUSINESS OFFICE COORDINATOR Memory loss VITAMIN B12 / FOLATE Routine 06/04/2024 8:37 AM BUSINESS OFFICE COORDINATOR Memory loss from Last 3 Months Results * (ABNORMAL) VITAMIN B12 / FOLATE (06/04/2024 8:37 AM BUSINESS OFFICE COORDINATOR) VITAMIN B12 S/P/B 554 254 - 1,320 PG/ML 06/04/2024 12:13 PM BUSINESS OFFICE COORDINATOR [facility] FOLATE 71.1(H) 3.1 - 17.5 NG/ML 06/04/2024 12:13 PM BUSINESS OFFICE COORDINATOR [facility] 06/04/2024 8:37 AM BUSINESS OFFICE COORDINATOR Jessi Street MD LABORATORY Final Re sult Performing Organization Address City/[facility]/ZIP Co de Phone Number [facility] [address] [place] [address], [place] [phone] * TSH W/REFLEX (06/04/2024 8:37 AM BUSINESS OFFICE COORDINATOR) Pathologist [facility] TSH 3.110 0.358 - 3.74 uIU/ML 06/04/2024 9:33 AM BUSINESS OFFICE COORDINATOR [facility] Comment: HIGH DOSES OF BIOTIN MAY INTERFERE WITH THIS TEST RESULT. CORRELATION TO CLINICAL HISTORY AND PRESENTATION RECOMMENDED. FREE T4 NOT INDICATED 06/04/2024 8:37 AM BUSINESS OFFICE COORDINATOR Jsesi Street MD LABORATORY Final Re sult [facility] [address] [place] [address], [place] [phone] * METHYLMALONIC ACID (06/04/2024 8:37 AM BUSINESS OFFICE COORDINATOR) METHYLMALONIC ACID 279 69 - 390 nmol/L 06/07/2024 7:59 AM BUSINESS OFFICE COORDINATOR [facility] Comment: Serum methylmalonic acid (MMA) levels are used to diagnose and monitor several rare inborn errors of metabolism, including methylmalonic aciduria. The enzymatic conversion of MMA to succinic acid requires vitamin B12 (adenosyl-cobalamin) as a cofactor. Serum MMA levels are also used for assessing functional vitamin B12 deficiency. Vitamin B12 is essential for neurodevelopment, particularly early in . Undiagnosed maternal vitamin B12 deficiency may be associated with adverse / outcomes, such as neural tube defects and intrauterine growth restriction. [facility] utilized Multi-Modal Decomposition (MMD) analysis to establish first and second trimester- specific MMA reference intervals in , as given below: MMA, First trimester (<13 wks gestation): 58-167 nmol/L MMA, Second trimester (13-23 wks gestation): 63-241 nmol/L This test was developed and its analytical performance characteristics have been determined by [facility]. It has not been cleared or approved by the FDA. This assay has been validated pursuant to the CLIA regulations and is used for clinical purposes. Test Performed by [facility], [facility], [address] [place] [address] Paul Schrader M.D., Ph.D., Director of Laboratories , CLIA [id number] 06/04/2024 8:37 AM BUSINESS OFFICE COORDINATOR Jessi Street MD LABORATORY Final Re sult [facility] [address] , * (ABNORMAL) COMPREHENSIVE METABOLIC PANEL (06/04/2024 8:37 AM BUSINESS OFFICE COORDINATOR) GLUCOSE 114(H) 70 - 99 MG/DL 06/04/2024 9:33 AM BUSINESS OFFICE COORDINATOR [facility] BUN 45(H) 7 - 18 MG/DL 06/04/2024 9:33 AM BUSINESS OFFICE COORDINATOR [facility] CREATININE S/P/B 1.79(H) 0.55 - 1.02 MG/DL 06/04/2024 9:33 AM [facility] SODIUM S/P/B 140 136 - 145 MMOL/L 06/04/2024 9:33 AM [facility] POTASSIUM S/P/B 3.5 3.5 - 5.1 MMOL/L 06/04/2024 9:33 AM [facility] CHLORIDE S/P/B 113 97 - 115 MMOL/L 06/04/2024 9:33 AM [facility] CO2 22.1 21 - 32 MMOL/L 06/04/2024 9:33 AM [facility] CALCIUM S/P/B 10.5(H) 8.5 - 10.1 MG/DL 06/04/2024 9:33 AM [facility] BILIRUBIN TOTAL S/P/B 0.4 0.2 - 1.2 MG/DL 06/04/2024 9:33 AM [facility] Comment: THIS ASSAY IS NOT RECOMMENDED FOR PATIENTS UNDERGOING TREATMENT WITH ELTROMBOPAG DUE TO THE POTENTIAL FOR FALSELY ELEVATED RESULTS. TOTAL PROTEIN S/P/B 7.2 6.4 - 8.2 G/DL 06/04/2024 9:33 AM [facility] ALBUMIN S/P/B 3.7 3.4 - 5.0 G/DL 06/04/2024 9:33 AM [facility] AST 30 15 - 37 U/L 06/04/2024 9:33 AM [facility] ALT 21 14 - 55 U/L 06/04/2024 9:33 AM [facility] ALKALINE PHOSPHATASE S/P/B 105 50 - 136 U/L 06/04/2024 9:33 AM [facility] ANION GAP 4.9 2 - 10 MMOL/L 06/04/2024 9:33 AM [facility] BUN CREATININE RATIO 25.1 6 - 26 06/04/2024 9:33 AM [facility] A/G RATIO 1.1 1.0 - 2.0 RATIO 06/04/2024 9:33 AM [facility] GFR ESTIMATE 29(L) >90 ML/MIN/1.7 3 M2 06/04/2024 9:33 AM [facility] Comment: NOTE: eGFR is not calculated for patients <18 years of age or gender unknown. This is an estimated GFR calculation using the new CKD EPI creatinine equation without race and so does not require a correction factor for race. This estimated GFR should not be used for calculating drug doses. 06/04/2024 8:37 AM BUSINESS OFFICE COORDINATOR us Jessi Street MD LABORATORY Final Re sult [facility] [address] [place] [id number], * (ABNORMAL) CBC W/DIFF AUTOMATED (06/04/2024 8:37 AM BUSINESS OFFICE COORDINATOR) WBC 8.61 4.5 - 11.0 x10'3/uL 06/04/2024 8:50 AM [facility] RBC 3.78(L) 4.20 - 5.40 x10'6/uL 06/04/2024 8:50 AM [facility] HGB 11.1(L) 12.0 - 16.0 G/DL 06/04/2024 8:50 AM [facility] HCT 35.8(L) 38.0 - 48.0 % 06/04/2024 8:50 AM [facility] MCV 94.7 81.0 - 99.0 FL 06/04/2024 8:50 AM [facility] MCH 29.4 27.0 - 31.0 PG 06/04/2024 8:50 AM [facility] MCHC 31.0(L) 32.0 - 36.0 G/DL 06/04/2024 8:50 AM [facility] RDW 16.0(H) 11.5 - 14.5 % 06/04/2024 8:50 AM [facility] PLT 249 130 - 400 x10'3/uL 06/04/2024 8:50 AM [facility] MPV 9.7 9.3 - 12.2 FL 06/04/2024 8:50 AM [facility] DIFFERENTIAL TYPE AUTOMATED DIFFERENTIAL 06/04/2024 8:50 AM [facility] NEUTROPHILS % 74.5 % 06/04/2024 8:50 AM [facility] LYMPHOCYTES % 16.4 % 06/04/2024 8:50 AM [facility] MONOCYTES % 7.0 % 06/04/2024 8:50 AM [facility] EOSINOPHILS 1.4 % 06/04/2024 8:50 AM [facility] BASOPHILS 0.5 % 06/04/2024 8:50 AM [facility] IMMATURE GRANS % 0.2 % 06/04/20 8:50 AM [facility] ABS. NEUTROPHILS 6.42 1.80 - 7.70 x10'3/uL 06/04/2024 8:50 AM [facility] ABS. LYMPHOCYTES 1.41 1.00 - 4.80 x10'3/uL 06/04/2024 8:50 AM [facility] ABS. MONOCYTES 0.60 0.24 - 0.86 x10'3/uL 06/04/2024 8:50 AM [facility] ABS. EOSINOPHILS 0.12 0.04 - 0.36 x10'3/uL 06/04/2024 8:50 AM BUSINESS OFFICE COORDINATOR [facility] ABS. BASOPHILS 0.04 0.01 - 0.08 x10'3/uL 06/04/2024 8:50 AM BUSINESS OFFICE COORDINATOR [facility] ABS. IMMATURE GRANULOCYTES 0.02 0.00 - 0.49 x10'3/uL 06/04/2024 8:50 AM BUSINESS OFFICE COORDINATOR [facility] 06/04/2024 8:37 AM BUSINESS OFFICE COORDINATOR Jessi Street MD LABORATORY Final Re sult Performing Organization Address [facility]/ZIP Co de Phone Number [facility] [address] [place] [id number], [place] [phone] * (ABNORMAL) HOMOCYSTEINE (06/04/2024 8:37 AM BUSINESS OFFICE COORDINATOR) HOMOCYSTEINE S/P/B 19.3(H) <10.4 umol/L 06/06/2024 10:45 PM BUSINESS OFFICE COORDINATOR [facility] Comment: Homocysteine is increased by functional deficiency of folate or vitamin B12. Testing for methylmalonic acid differentiates between these deficiencies. Other causes of increased homocysteine include renal failure, folate antagonists such as methotrexate and phenytoin, and exposure to nitrous oxide. Garo Guillen, et al. [facility] Rn Med. 1999;131(5):331-9. Test Performed by [facility], [facility], [address] [place] [address] Paul Schrader M.D., Ph.D., Director of Laboratories , [place] [id number] 06/04/2024 8:37 AM BUSINESS OFFICE COORDINATOR us Jessi Street MD LABORATORY Final Re sult [facility] [address] [place] [address], [place] [phone] from Last 3 Months Insurance MEDICARE [employer] Care Teams Skin Care Consultant Relationship Specialty Start Date End Date Devyn Fry MD [address] [place] [address] PCP - General FAMILY PRACTICE 02/09/24
--- OUTSIDE RECORDS SUMMARY | 2024-08-08 14:29 | XMS_ITS | Patient Health Summary ---
Author Organization [facility] Address [address] [place] [address] Care Team Providers Care Artist Model Name Role Phone Devyn Fry MD Primary Care Provider [phone] Note from [facility],non-owned Affiliates and Associated Physician Practices is amultiple site organization consisting of ambulatory clinics and hospital sitesin [place], [place], [place] and [place]. This disclosure is being madepursuant to the Care Everywhere program and may not contain all information available regarding this patient. Last updated 18.[facility] Allergies * Ciprofloxacin(Vomiting) * Fenofibrate(Vomiting) * Ibuprofen(Vomiting) * Penicillins(Rash) -Medium Criticality * Quinolones(Vomiting) Medications * Be aware that medications may not be up to date on this document. Alwaysverify current medications with the patient. * rosuvastatin (CRESTOR) 10 MG tablet Take 2 (two) Half Tablet by mouth once daily * valsartan (DIOVAN) 40 MG tablet Take 1 (one) tablet by mouth once daily * omeprazole (PRILOSEC) 40 MG capsule Take 1 (one) capsule by mouth daily before breakfast * melatonin 10 MG capsule Take 1 (one) capsule by mouth at bedtime * allopurinol (Zyloprim) 100 MG tablet Take 1 (one) tablet by mouth once daily * colestipol (Colestid) 1 GM tablet(Started 05/21/2023) Take 1 (one) tablet by mouth 2 times daily * cyanocobalamin (Vitamin B-12) 1000 MCG tablet Take 1 (one) tablet by mouth once daily * aspirin (Aspirin) 325 MG tablet Take 1 (one) tablet by mouth once daily * metoprolol tartrate IR (Lopressor) 25 MG tablet(Started 07/11/2023) Take 1 (one) tablet by mouth once daily * multivitamin daily tablet Take 1 (one) tablet by mouth daily with food * zolpidem (Ambien) 5 MG tablet(Started 05/06/2023) Take 1 (one) tablet by mouth at bedtime Social History Tobacco Use Types Packs/Day Years Used Date Smoking Tobacco: Former Cigarettes Q uit: 2013 Smokeless Tobacco: Never Tobacco Cessation:Counseling Given: Not Answered Alcohol Use Standard Drinks/Week Comments Never 0 (1 standard drink = 0.6 oz pur e alcohol) AUDIT-C Answer Date Recorded Q1: How often do you have a drink containing alc ohol? Never 05/01/2020 Average Number of Drinks Not on file 020 Frequency of Binge Drinking Not on file 10/2019 Sex and Gender Information Value Date Recorded Sex Assigned at Not on file Gender Identity Not on file Sexual Orientation Not on file Last Filed Vital Signs Vital Sign Reading Time Taken Comments Blood Pressure 100/60 08/29/2023 11:38 AM NURSE PRACTITIONER PHYSICIANS ASSISTANT Pulse 64 08/29/2023 11:38 AM NURSE PRACTITIONER PHYSICIANS ASSISTANT Temperature 36.7 C (98 F) 05/01/2020 6:46 PM NURSE PRACTITIONER PHYSICIANS ASSISTANT Respiratory Rate 14 08/29/2023 11:38 AM NURSE PRACTITIONER PHYSICIANS ASSISTANT Oxygen Saturation 95% 08/29/2023 11:38 AM NURSE PRACTITIONER PHYSICIANS ASSISTANT Inhaled Oxygen Concentration - - Weight 74.4 kg (164 lb) 08/29/2023 11:38 AM NURSE PRACTITIONER PHYSICIANS ASSISTANT Height 160 cm (5' 3 ) 08/29/2023 11:38 AM NURSE PRACTITIONER PHYSICIANS ASSISTANT Body Mass Index 29.05 08/29/2023 11:38 AM NURSE PRACTITIONER PHYSICIANS ASSISTANT Procedures * EEG(Performed 08/02/2023) Performed for TGA (transient global amnesia) * CT ANGIO BRAIN AND NECK(Performed 08/02/2023) Performed for TGA (transient global amnesia) * CREATININE - POCT INTERFACED(Performed 08/02/2023) * MRI BRAIN WO CONTRAST(Performed 08/02/2023) Performed for TGA (transient global amnesia) * CARDIAC EKG ORDER(Performed 05/02/2020) * CT CHEST WO CONTRAST(Performed 05/01/2020) Performed for Fall, initial encounter * CT LUMBAR SPINE WO CONTRAST(Performed 05/01/2020) Performed for Fall, initial encounter, Acute midline thoracic back pain * CT THORACIC SPINE WO CONTRAST(Performed 05/01/2020) Performed for Fall, initial encounter, Acute midline thoracic back pain * CT CERVICAL SPINE WO CONTRAST(Performed 05/01/2020) Performed for Fall, initial encounter, Neck pain * CT FACIAL BONES WO CONTRAST(Performed 05/01/2020) Performed for Fall, initial encounter, Face pain * CT HEAD WO CONTRAST(Performed 05/01/2020) Performed for Fall, initial encounter, Acute post-traumatic headache, not intractable * XR PELVIS 1 OR 2VW(Performed 05/01/2020) Performed for Fall, initial encounter, Acute pain of right knee * XR KNEE RIGHT 3VW(Performed 05/01/2020) Performed for Fall, initial encounter, Acute pain of right knee * CBC W AUTO DIFFERENTIAL(Performed 05/01/2020) * BASIC METABOLIC PANEL (CALCIUM TOTAL)(Performed 05/01/2020) * ALCOHOL ETHYL BLOOD(Performed 05/01/2020) * EKG 12-LEAD(Performed 05/01/2020) Performed for Fall, initial encounter Results * EEG (08/02/2023 8:15 PM NURSE PRACTITIONER PHYSICIANS ASSISTANT) Narrative [facility] - 08/02/2023 8:15 PM NURSE PRACTITIONER PHYSICIANS ASSISTANT Zacarias Rubi MD 08/02/2023 8:21 PM Electroencephalogram A routine EEG was carried out utilizing the digital multichannel recorder in a 72 year old female. The chief complaint is TGA. Unipolar and bipolar montages in the International 10/ 20 system are utilized. Current Outpatient Medications Medication allopurinol (Zyloprim) 100 MG tablet aspirin (Aspirin) 325 MG tablet colestipol (Colestid) 1 GM tablet cyanocobalamin (Vitamin B-12) 1000 MCG tablet melatonin 10 MG capsule metoprolol tartrate IR (Lopressor) 25 MG tablet multivitamin daily tablet nitrofurantoin macrocrystal (Macrodantin) 100 MG capsule omeprazole (PRILOSEC) 40 MG capsule rosuvastatin (CRESTOR) 10 MG tablet valsartan (DIOVAN) 40 MG tablet zolpidem (Ambien) 5 MG tablet No current facility-administered medications for this encounter. Facility-Administered Medications Ordered in Other Encounters Medication iopamidol (Isovue 370) 76 % contrast The patient is alert and drowsy in this record. The voltages are low to moderate and high. During the alert portion of this record alpha rhythms are present at 8-10 cycles per second. Slower rhythms indicate drowsiness. Sleep spindles are absent. FIRDA is present on occasion.. The media monitor indicates a pulse at 60 beats per minute Over breathing and post over breathing are not performed Photic stimulation was not performed No epileptiform discharges are seen. Occasional increased right slowing at 6 Hz is seen Impression: Mildly abnormal EEG secondary to a suggeston of right slowing compared to left suggesting a focal lesion. In addition the presence of FIRDA suggests cerebral dysfunction Zacarias Rubi MD Zacarias Rubi MD NEUROLOGY ORDERABLE S [facility] * CT ANGIO BRAIN AND NECK (08/02/2023 1:48 PM NURSE PRACTITIONER PHYSICIANS ASSISTANT) Anatomical Region Laterality Modality Head Computed Tomogra phy 08/02/2023 2:23 PM NURSE PRACTITIONER PHYSICIANS ASSISTANT Impressions 08/02/2023 3:04 PM NURSE PRACTITIONER PHYSICIANS ASSISTANT IMPRESSION: 1. No large vessel occlusion around the [place]. 2. No significant vascular stenosis. 3. 3 mm size right upper lobe lung nodule. Code: SSM-LungNodule Edited by Katherine Jade on 08/02/2023 2:49 PM > Interpreting Provider: Katty Noland MD on 08/02/2023 3:04 PM Narrative 08/02/2023 3:04 PM NURSE PRACTITIONER PHYSICIANS ASSISTANT PROCEDURE: CT ANGIO BRAIN AND NECK, DATE/TIME OF EXAM: 08/02/2023 1:49 PM, LOCATION [facility] INDICATION: G45.4: Transient global amnesia ADDITIONAL CLINICAL INFORMATION: Ordering Provider Reason For Exam: Technologist Note: Additional: COMPARISON: None. TECHNIQUE: CT angiography of the brain and neck was performed without IV contrast followed by IV contrast, including 3D post processing CTA image reconstruction. Stenosis measurements are based on NASCET criteria. CT dose reduction technique was used, including Automated Exposure Control. CONTRAST: IOPAMIDOL 76 % IV SOLN:80 mL FINDINGS: CTA HEAD: Minimal atherosclerotic calcification involving the distal intracranial internal carotid arteries, without significant stenosis. The anterior and middle cerebral arteries are normal in appearance without high-grade stenosis, aneurysmal dilatation, or branch occlusion about the [place]. The region of the anterior communicating artery is unremarkable. The distal vertebral arteries, vertebrobasilar junction, and basilar artery are normal in appearance. The posterior cerebral arteries are normal in appearance without high-grade stenosis, aneurysmal dilatation, or branch occlusion about the [place]. The posterior communicating arteries are normal in appearance. CTA NECK: The origins of the great vessels are widely patent. The cervical portions of the internal carotid are patent without focal narrowing according to NASCET criteria. Retropharyngeal course of both internal carotid arteries in the neck. Minimal atherosclerotic calcification at the carotid bifurcation bilaterally, without significant stenosis. The common carotids and the cervical vertebral arteries are patent without focal narrowing. The vertebral arteries are codominant. There is a 3 mm sized right upper lobe lung nodule, seen on image 74 series 401. Calcified right thyroid nodule. Procedure Note Katty Noland MD - 08/02/2023 PROCEDURE: CT ANGIO BRAIN AND NECK, DATE/TIME OF EXAM: 08/02/2023 1:49PM, LOCATION [facility] INDICATION: G45.4: Transient global amnesia ADDITIONAL CLINICAL INFORMATION: Ordering Provider Reason For Exam: Technologist Note: Additional: COMPARISON: None. TECHNIQUE: CT angiography of the brain and neck was performed without IV contrast followed by IV contrast, including 3D post processing CTA image reconstruction. Stenosis measurements are based on NASCET criteria. CT dose reduction technique was used, including Automated ExposureControl. CONTRAST: IOPAMIDOL 76 % IV SOLN:80 mL FINDINGS: CTA HEAD: Minimal atherosclerotic calcification involving the distal intracranial internal carotid arteries, without significant stenosis. The anteriorand middle cerebral arteries are normal in appearance without high-grade stenosis, aneurysmal dilatation, or branch occlusion about the [place]. The region of the anterior communicating artery is unremarkable. The distal vertebral arteries, vertebrobasilar junction, and basilarartery are normal in appearance. The posterior cerebral arteries are normal in appearance without high-grade stenosis, aneurysmal dilatation, or branch occlusion about the [place]. The posterior communicating arteries are normal in appearance. CTA NECK: The origins of the great vessels are widely patent. The cervicalportions of the internal carotid are patent without focal narrowing according to NASCET criteria. Retropharyngeal course of both internal carotidarteries in the neck. Minimal atherosclerotic calcification at the carotid bifurcation bilaterally, without significant stenosis. The commoncarotids and the cervical vertebral arteries are patent without focal narrowing.The vertebral arteries are codominant. There is a 3 mm sized right upper lobe lung nodule, seen on image 74series 401. Calcified right thyroid nodule. IMPRESSION: 1. No large vessel occlusion around the [place]. 2. No significant vascular stenosis. 3. 3 mm size right upper lobe lung nodule. Code: SSM-LungNodule Edited by Katherine Jade on 08/02/2023 2:49 PM > Interpreting Provider: Katty Noland MD on 08/02/2023 3:04 PM [address] Rubi MD CT ORDERABLES * (ABNORMAL) CREATININE - POCT INTERFACED (08/02/2023 1:43 PM NURSE PRACTITIONER PHYSICIANS ASSISTANT) [facility] Creatinine POCT 1.51(H) 0.70 - 1.20 mg/dL 08/02/2023 2:06 PM NURSE PRACTITIONER PHYSICIANS ASSISTANT [facility] eGFR 36(L) >=90 mL/min/1.7 3 m2 08/02/2023 2:06 PM NURSE PRACTITIONER PHYSICIANS ASSISTANT [facility] Blood BLOOD SPECIMEN / Unknown 08/02/2023 1:43 PM NURSE PRACTITIONER PHYSICIANS ASSISTANT 08/02/2023 2:06 PM NURSE PRACTITIONER PHYSICIANS ASSISTANT Zacarias Rubi MD LAB - POINT OF CARE ORDERABLES [facility] [address] [place] [address] * MRI BRAIN WO CONTRAST (08/02/2023 12:00 PM NURSE PRACTITIONER PHYSICIANS ASSISTANT) Anatomical Region Laterality Modality Head Magnetic Resonan ce 08/02/2023 12:0 4 PM NURSE PRACTITIONER PHYSICIANS ASSISTANT Impressions 08/02/2023 12:08 PM NURSE PRACTITIONER PHYSICIANS ASSISTANT IMPRESSION: No acute infarct. Changes related to chronic small vessel ischemic disease and cerebral atrophy. > Interpreting Provider: Katty Noland MD on 08/02/2023 12:08 PM Narrative 08/02/2023 12:08 PM NURSE PRACTITIONER PHYSICIANS ASSISTANT PROCEDURE: MRI BRAIN WO CONTRAST, DATE/TIME OF EXAM: 08/02/2023 12:00 PM, LOCATION [facility] INDICATION: G45.4: Transient global amnesia ADDITIONAL CLINICAL INFORMATION: Ordering Provider Reason For Exam: Technologist Note: Additional: COMPARISON: None. TECHNIQUE: MRI of the brain was performed without contrast. FINDINGS: There is extensive bilateral periventricular white matter hyperintensity. Prominent ventricles and cerebral sulci, consistent with cerebral atrophy. No diffusion restriction to suggest acute infarct is seen. No evidence of hemorrhage is seen on gradient sequence. Midline structures are not displaced. No mass or mass effect is seen. Vascular flow-voids are normal. The paranasal sinuses and mastoid air cells are aerated. The calvarium has normal marrow signal intensity. Procedure Note Katty Noland MD - 08/02/2023 PROCEDURE: MRI BRAIN WO CONTRAST, DATE/TIME OF EXAM: 08/02/2023 12:00PM, LOCATION [facility] INDICATION: G45.4: Transient global amnesia ADDITIONAL CLINICAL INFORMATION: Ordering Provider Reason For Exam: Technologist Note: Additional: COMPARISON: None. TECHNIQUE: MRI of the brain was performed without contrast. FINDINGS: There is extensive bilateral periventricular white matter hyperintensity. Prominent ventricles and cerebral sulci, consistent with cerebral atrophy. No diffusion restriction to suggest acute infarct is seen. No evidence of hemorrhage is seen on gradient sequence. Midline structures are not displaced. No mass or mass effect is seen. Vascular flow-voids are normal. The paranasal sinuses and mastoid aircells are aerated. The calvarium has normal marrow signal intensity. IMPRESSION: No acute infarct. Changes related to chronic small vessel ischemic disease and cerebral atrophy. > Interpreting Provider: Katty Noland MD on 08/02/2023 12:08 PM Zacarias Rubi MD MR ORDERABLES * CARDIAC EKG ORDER (05/02/2020 8:29 AM NURSE PRACTITIONER PHYSICIANS ASSISTANT) Narrative 05/02/2020 8:29 AM NURSE PRACTITIONER PHYSICIANS ASSISTANT Ordered by an unspecified provider. Scanned Document CARDIAC SERVICES ORD ERABLES * CT LUMBAR SPINE WO CONTRAST - T/L-spine trauma, Spine fracture (05/01/2020 4:49 PM NURSE PRACTITIONER PHYSICIANS ASSISTANT) Anatomical Region Laterality Modality Spine Computed Tomogra phy 05/02/2020 7:15 AM NURSE PRACTITIONER PHYSICIANS ASSISTANT Impressions 05/02/2020 8:36 AM NURSE PRACTITIONER PHYSICIANS ASSISTANT IMPRESSION: 1.No acute intracranial abnormality. 2.Evaluation of the facial bones is significantly limited due to motion artifact. Within this limitation, no fracture is demonstrated. 3.No fracture of the cervical, thoracic and lumbar spine. 4.Moderate to severe stenosis at the right C4-C5 and bilateral C5-C6 neural foramina. 5.Moderate to severe spinal canal stenosis from L2-3 to L4-5. Moderate to severe bilateral foraminal stenosis at L4-5. Dictated by Hany Goodrich MD (Unit Director) I, Dr. FLORINDA CONDE have personally reviewed and interpreted this examination/study. This report was electronically signed by FLORINDA CONDE on 05/02/2020 8:36 AM . Narrative 05/02/2020 8:36 AM NURSE PRACTITIONER PHYSICIANS ASSISTANT EXAMINATION: Computed tomography (CT) of the head without intravenous contrast CT scan of the facial bones without intravenous contrast CT of the cervical spine without intravenous contrast CT of the thoracic spine CT of the lumbar spine HISTORY: Trauma TECHNIQUE: CT of the head, facial bones and cervical spine was performed without contrast according to standard protocol. Sagittal, axial and coronal images of the thoracic and lumbar spines were reformatted from the concurrently obtained CT scan of the chest, abdomen and pelvis. COMPARISON: No prior study is available for comparison at the time of this dictation.. FINDINGS: BRAIN - There is no acute hemorrhage. There is no midline shift. There is no hydrocephalus or extra-axial fluid collection. Mild chronic microvascular ischemic changes are seen. Old infarcts versus dilated perivascular spaces are seen in bilateral basal ganglia inferiorly. Evaluation of the posterior fossa is limited due to extensive dental streak artifact. CRANIOFACIAL BONES/SOFT TISSUES - There is extensive motion degrading the quality of the exam. The calvarium and facial bones appear intact. The soft tissues are grossly within normal limits. No significant intraorbital abnormality is noted. The paranasal sinuses are clear. The mastoid air cells and tympanic cavities are aerated. CERVICAL, THORACIC AND LUMBAR SPINE- There is no fracture. The prevertebral soft tissues are within normal limits. The spinal curvature is maintained without subluxation. There are no aggressive appearing lytic or sclerotic lesions. Generalized osseous mineralization is seen. There is a small posterior disc osteophyte complex at the C3-C4 disc space without significant central canal stenosis. There is uncovertebral hypertrophy causing moderate to severe neural foraminal stenosis at the right C4-C5 and bilateral C5-C6. Within the thoracic spine there is posterior longitudinal ligament calcification along the T5-T6 vertebral bodies with mild central canal stenosis. There is grade 1 anterolisthesis of L4 over L5. Moderate to severe spinal canal stenosis is seen from L2-3 to L4-5. There is moderate to severe bilateral foraminal stenosis at L4-5. Calcified thyroid nodules are seen. 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 Procedure Note Florinda Conde MD - 05/02/2020 EXAMINATION: Computed tomography (CT) of the head without intravenous contrast CT scan of the facial bones without intravenous contrast CT of the cervical spine without intravenous contrast CT of the thoracic spine CT of the lumbar spine HISTORY: Trauma TECHNIQUE: CT of the head, facial bones and cervical spine was performed without contrast according to standard protocol. Sagittal, axial and coronal images of the thoracic and lumbar spines were reformatted fromthe concurrently obtained CT scan of the chest, abdomen and pelvis. COMPARISON: No prior study is available for comparison at the time ofthis dictation.. FINDINGS: BRAIN - There is no acute hemorrhage. There is no midline shift. There is no hydrocephalus or extra-axial fluid collection. Mild chronicmicrovascular ischemic changes are seen. 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 Evaluation of the posterior fossa is limited due to extensive dental streak artifact. CRANIOFACIAL BONES/SOFT TISSUES - There is extensive motion degrading the quality of the exam. The calvarium and facial bones appear intact. The soft tissues aregrossly within normal limits. No significant intraorbital abnormality is noted. The paranasal sinuses are clear. The mastoid air cells and tympanic cavities are aerated. CERVICAL, THORACIC AND LUMBAR SPINE- There is no fracture. The prevertebral soft tissues are within normal limits. The spinal curvature is maintained without subluxation. Thereare no aggressive appearing lytic or sclerotic lesions. Generalized osseous mineralization is seen. There is a small posterior disc osteophyte complex at the C3-C4 disc space without significant central canal stenosis. There is uncovertebral hypertrophy causing moderate to severe neural foraminal stenosis at the right C4-C5 and bilateral C5-C6. Within the thoracic spine there is posterior longitudinal ligament calcification along the T5-T6 vertebral bodies with mild central canal stenosis. There is grade 1 anterolisthesis of L4 over L5. Moderate to severespinal canal stenosis is seen from L2-3 to L4-5. There is moderate to severe bilateral foraminal stenosis at L4-5. Calcified thyroid nodules are seen. 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 IMPRESSION: 1.No acute intracranial abnormality. 2.Evaluation of the facial bones is significantly limited due to motion artifact. Within this limitation, no fracture is demonstrated. 3.No fracture of the cervical, thoracic and lumbar spine. 4.Moderate to severe stenosis at the right C4-C5 and bilateral C5-C6 neural foramina. 5.Moderate to severe spinal canal stenosis from L2-3 to L4-5. Moderateto severe bilateral foraminal stenosis at L4-5. Dictated by Hany Goodrich MD (Unit Director) [place], Dr. FLORINDA CONDE have personally reviewed and interpreted this examination/study. This report was electronically signed by FLORINDA CONDE on 05/02/2020 8:36AM . Yunior Haynes MD CT ORDERABLES * CT THORACIC SPINE WO CONTRAST - T/L-spine trauma, spine fracture (05/01/2020 4:49 PM NURSE PRACTITIONER PHYSICIANS ASSISTANT) Anatomical Region Laterality Modality Spine Computed Tomogra phy 05/02/2020 7:15 AM NURSE PRACTITIONER PHYSICIANS ASSISTANT Impressions 05/02/2020 8:36 AM NURSE PRACTITIONER PHYSICIANS ASSISTANT IMPRESSION: 1.No acute intracranial abnormality. 2.Evaluation of the facial bones is significantly limited due to motion artifact. Within this limitation, no fracture is demonstrated. 3.No fracture of the cervical, thoracic and lumbar spine. 4.Moderate to severe stenosis at the right C4-C5 and bilateral C5-C6 neural foramina. 5.Moderate to severe spinal canal stenosis from L2-3 to L4-5. Moderate to severe bilateral foraminal stenosis at L4-5. Dictated by Hany Goodrich MD (Unit Director) Dr. FLORINDA Cifuentes have personally reviewed and interpreted this examination/study. This report was electronically signed by FLORINDA CONDE on 05/02/2020 8:36 AM . Narrative 05/02/2020 8:36 AM NURSE PRACTITIONER PHYSICIANS ASSISTANT EXAMINATION: Computed tomography (CT) of the head without intravenous contrast CT scan of the facial bones without intravenous contrast CT of the cervical spine without intravenous contrast CT of the thoracic spine CT of the lumbar spine HISTORY: Trauma TECHNIQUE: CT of the head, facial bones and cervical spine was performed without contrast according to standard protocol. Sagittal, axial and coronal images of the thoracic and lumbar spines were reformatted from the concurrently obtained CT scan of the chest, abdomen and pelvis. COMPARISON: No prior study is available for comparison at the time of this dictation.. FINDINGS: BRAIN - There is no acute hemorrhage. There is no midline shift. There is no hydrocephalus or extra-axial fluid collection. Mild chronic microvascular ischemic changes are seen. Old infarcts versus dilated perivascular spaces are seen in bilateral basal ganglia inferiorly. Evaluation of the posterior fossa is limited due to extensive dental streak artifact. CRANIOFACIAL BONES/SOFT TISSUES - There is extensive motion degrading the quality of the exam. The calvarium and facial bones appear intact. The soft tissues are grossly within normal limits. No significant intraorbital abnormality is noted. The paranasal sinuses are clear. The mastoid air cells and tympanic cavities are aerated. CERVICAL, THORACIC AND LUMBAR SPINE- There is no fracture. The prevertebral soft tissues are within normal limits. The spinal curvature is maintained without subluxation. There are no aggressive appearing lytic or sclerotic lesions. Generalized osseous mineralization is seen. There is a small posterior disc osteophyte complex at the C3-C4 disc space without significant central canal stenosis. There is uncovertebral hypertrophy causing moderate to severe neural foraminal stenosis at the right C4-C5 and bilateral C5-C6. Within the thoracic spine there is posterior longitudinal ligament calcification along the T5-T6 vertebral bodies with mild central canal stenosis. There is grade 1 anterolisthesis of L4 over L5. Moderate to severe spinal canal stenosis is seen from L2-3 to L4-5. There is moderate to severe bilateral foraminal stenosis at L4-5. Calcified thyroid nodules are seen. 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 central canal stenosis. There is uncovertebral hypertrophy causing moderate to severe neural foraminal stenosis at the right C4-C5 and bilateral C5-C6. Within the thoracic spine there is posterior longitudinal ligament calcification along the T5-T6 vertebral bodies with mild central canal stenosis. There is grade 1 anterolisthesis of L4 over L5. Moderate to severe spinal canal stenosis is seen from L2-3 to L4-5. There is moderate to severe bilateral foraminal stenosis at L4-5. Calcified thyroid nodules are seen. 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 Procedure Note Florinda Conde MD - 05/02/2020 EXAMINATION: Computed tomography (CT) of the head without intravenous contrast CT scan of the facial bones without intravenous contrast CT of the cervical spine without intravenous contrast CT of the thoracic spine CT of the lumbar spine HISTORY: Trauma TECHNIQUE: CT of the head, facial bones and cervical spine was performed without contrast according to standard protocol. Sagittal, axial and coronal images of the thoracic and lumbar spines were reformatted fromthe concurrently obtained CT scan of the chest, abdomen and pelvis. COMPARISON: No prior study is available for comparison at the time ofthis dictation.. FINDINGS: BRAIN - There is no acute hemorrhage. There is no midline shift. There is no hydrocephalus or extra-axial fluid collection. Mild chronicmicrovascular ischemic changes are seen. 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 Evaluation of the posterior fossa is limited due to extensive dental streak artifact. CRANIOFACIAL BONES/SOFT TISSUES - There is extensive motion degrading the quality of the exam. The calvarium and facial bones appear intact. The soft tissues aregrossly within normal limits. No significant intraorbital abnormality is noted. The paranasal sinuses are clear. The mastoid air cells and tympanic cavities are aerated. CERVICAL, THORACIC AND LUMBAR SPINE- There is no fracture. The prevertebral soft tissues are within normal limits. The spinal curvature is maintained without subluxation. Thereare no aggressive appearing lytic or sclerotic lesions. Generalized osseous mineralization is seen. There is a small posterior disc osteophyte complex at the C3-C4 disc space without significant central canal stenosis. There is uncovertebral hypertrophy causing moderate to severe neural foraminal stenosis at the right C4-C5 and bilateral C5-C6. Within the thoracic spine there is posterior longitudinal ligament calcification along the T5-T6 vertebral bodies with mild central canal stenosis. There is grade 1 anterolisthesis of L4 over L5. Moderate to severespinal canal stenosis is seen from L2-3 to L4-5. There is moderate to severe bilateral foraminal stenosis at L4-5. Calcified thyroid nodules are seen. 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 IMPRESSION: 1.No acute intracranial abnormality. 2.Evaluation of the facial bones is significantly limited due to motion artifact. Within this limitation, no fracture is demonstrated. 3.No fracture of the cervical, thoracic and lumbar spine. 4.Moderate to severe stenosis at the right C4-C5 and bilateral C5-C6 neural foramina. 5.Moderate to severe spinal canal stenosis from L2-3 to L4-5. Moderateto severe bilateral foraminal stenosis at L4-5. Dictated by Hany Goodrich MD (Unit Director) I, Dr. FLORINDA CONDE have personally reviewed and interpreted this examination/study. This report was electronically signed by FLORINDA CONDE on 05/02/2020 8:36AM . Yunior Haynes MD CT ORDERABLES * XR PELVIS 1 OR 2VW (05/01/2020 3:47 PM NURSE PRACTITIONER PHYSICIANS ASSISTANT) Anatomical Region Laterality Modality Pelvis Radiographic Clair ging 05/01/2020 3:51 PM NURSE PRACTITIONER PHYSICIANS ASSISTANT Impressions 05/01/2020 3:52 PM NURSE PRACTITIONER PHYSICIANS ASSISTANT IMPRESSION: No acute findings. This report was electronically signed by FE JIMENEZ on 05/01/2020 3:52 PM . Narrative 05/01/2020 3:52 PM NURSE PRACTITIONER PHYSICIANS ASSISTANT EXAMINATION: XR PELVIS 1 OR 2VW HISTORY: W19.XXXA: Fall, initial encounter M25.561: Acute pain of right knee COMPARISON: None FINDINGS: The hip joints appear symmetric. The bony pelvic ring and proximal femurs appear intact. No acute fracture is appreciated. Procedure Note Fe Jimenez MD - 05/01/2020 EXAMINATION: XR PELVIS 1 OR 2VW HISTORY: W19.XXXA: Fall, initial encounter M25.561: Acute pain of right knee COMPARISON: None FINDINGS: The hip joints appear symmetric. The bony pelvic ring and proximalfemurs appear intact. No acute fracture is appreciated. IMPRESSION: No acute findings. This report was electronically signed by FE JIMENEZ on 05/01/2020 3:52 PM . Yunior Haynes MD DIAGNOSTIC IMAGING O RDERABLES * XR KNEE RIGHT 3VW (05/01/2020 3:47 PM NURSE PRACTITIONER PHYSICIANS ASSISTANT) Anatomical Region Laterality Modality Lower Extremity Radiographic Clair ging 05/01/2020 3:52 PM NURSE PRACTITIONER PHYSICIANS ASSISTANT Impressions 05/01/2020 3:54 PM NURSE PRACTITIONER PHYSICIANS ASSISTANT IMPRESSION: Suboptimal lateral imaging, with inability to exclude joint effusion or alignment alteration on the lateral view. No fracture appreciated. This report was electronically signed by FE JIMENEZ on 05/01/2020 3:54 PM . Narrative 05/01/2020 3:54 PM NURSE PRACTITIONER PHYSICIANS ASSISTANT EXAMINATION: XR KNEE RIGHT 3VW HISTORY: W19.XXXA: Fall, initial encounter M25.561: Acute pain of right knee COMPARISON: None FINDINGS: There is suboptimal, nonstandard positioning on the lateral view, with oblique projection and exaggerated flexion at the knee. Evaluation for alignment on the lateral view is degraded. Alignment on frontal view is normal. No acute fracture is appreciated. Small medial compartment osteophytes are present. Evaluation for joint effusion is significantly degraded due to obliquity on the lateral view. Procedure Note Fe Jimenez MD - 05/01/2020 EXAMINATION: XR KNEE RIGHT 3VW HISTORY: W19.XXXA: Fall, initial encounter M25.561: Acute pain of right knee COMPARISON: None FINDINGS: There is suboptimal, nonstandard positioning on the lateral view, with oblique projection and exaggerated flexion at the knee. Evaluation for alignment on the lateral view is degraded. Alignment on frontal view is normal. No acute fracture is appreciated. Small medial compartment osteophytes are present. Evaluation for joint effusion is significantly degraded due to obliquity on the lateral view. IMPRESSION: Suboptimal lateral imaging, with inability to exclude joint effusion or alignment alteration on the lateral view. No fracture appreciated. This report was electronically signed by FE JIMENEZ on 05/01/2020 3:54 PM . Ynuior Haynes MD DIAGNOSTIC IMAGING O RDERABLES * (ABNORMAL) CBC W AUTO DIFFERENTIAL (05/01/2020 3:18 PM NURSE PRACTITIONER PHYSICIANS ASSISTANT) WBC 6.0 3.5 - 10.5 10 3/uL 05/01/2020 3:29 PM [facility] RBC 3.72(L) 3.90 - 5.00 10 6/uL 05/01/2020 3:29 PM [facility] Hemoglobin 11.2(L) 12.0 - 15.5 g/dL 05/01/2020 3:29 PM [facility] Hematocrit 35.0 35.0 - 45.0 % 05/01/2020 3:29 PM [facility] MCV 94.1 81.0 - 97.0 fL 05/01/2020 3:29 PM [facility] MCH 30.1 28.0 - 34.0 pg 05/01/2020 3:29 PM [facility] MCHC 32.0 32.0 - 36.0 g/dL 05/01/2020 3:29 PM [facility] Platelet Count 206 150 - 400 10 3/uL 05/01/2020 3:29 PM [facility] RDW-SD 44.3 36.0 - 50.0 fL 05/01/2020 3:29 PM [facility] RDW-CV 12.9 11.2 - 14.8 % 05/01/2020 3:29 PM [facility] MPV 10.0 9.3 - 12.8 fL 05/01/2020 3:29 PM [facility] nRBC Absolute 0.00 0 10 3/uL 05/01/2020 3:29 PM [facility] nRBC Auto 0.0 0 /100 WBC 05/01/2020 3:29 PM [facility] Neutrophils % 61.0 35.0 - 70.0 % 05/01/2020 3:29 PM [facility] Lymphocytes % 26.1 19.7 - 55.1 % 05/01/2020 3:29 PM [facility] Monocytes % 9.5 3.0 - 15.0 % 05/01/2020 3:29 PM [facility] Eosinophils % 2.2 0.0 - 6.0 % 05/01/2020 3:29 PM [facility] Basophil % 1.0 0.0 - 1.5 % 05/01/2020 3:29 PM [facility] Neutrophils Absolute 3.7 1.6 - 7.0 10 3/uL 05/01/2020 3:29 PM [facility] Lymphocyte Absolute 1.6 0.8 - 2.9 10 3/uL 05/01/2020 3:29 PM [facility] Monocytes Absolute 0.57 0.14 - 0.66 10 3/uL 05/01/2020 3:29 PM [facility] Eosinophils Absolute 0.13 0.00 - 0.45 10 3/uL 05/01/2020 3:29 PM [facility] Basophils Absolute 0.06 0.00 - 0.06 10 3/uL 05/01/2020 3:29 PM [facility] Immature Granulocytes % 0.2 0.0 - 1.0 % 05/01/2020 3:29 PM [facility] Blood BLOOD SPECIMEN / Unknown Venipuncture / Unknown 05/01/2020 3:18 PM NURSE [facility]ACTITIONER PH[employer]ICIANS ASSISTANT 05/01/2020 3:23 PM NURSE PRACTITIONER PHYSICIANS ASSISTANT Yunior Haynes MD LAB - HEMATOLOGY [facility] [address] [place] [address], [facility] [phone] * (ABNORMAL) BASIC METABOLIC PANEL (CALCIUM TOTAL) (05/01/2020 3:18 PM NURSE PRACTITIONER PHYSICIANS ASSISTANT) BUN 47(H) 7 - 26 mg/dL 05/01/2020 3:50 PM [facility] Creatinine 1.9(H) 0.6 - 1.2 mg/dL 05/01/2020 3:50 PM [facility] Sodium 141 136 - 145 mmol/L 05/01/2020 3:50 PM [facility] Potassium 3.9 3.5 - 4.5 mmol/L 05/01/2020 3:50 PM [facility] Chloride 108(H) 98 - 107 mmol/L 05/01/2020 3:50 PM [facility] CO2 23 22 - 29 mmol/L 05/01/2020 3:50 PM [facility] Glucose 89 70 - 115 mg/dL 05/01/2020 3:50 PM [facility] Calcium 10.3(H) 8.4 - 10.2 mg/dL 05/01/2020 3:50 PM [facility] Anion Gap 14 8 - 18 05/01/2020 3:50 PM [facility] BUN/Creatinine Ratio 25(H) 7 - 23 05/01/2020 3:50 PM [facility] Osmolality Calculated 304(H) 270 - 300 mOsm/kg 05/01/2020 3:50 PM [facility] eGFR 26(L) >60 mL/min/1.7 3 m2 05/01/2020 3:50 PM [facility] Blood BLOOD SPECIMEN / Unknown Venipuncture / Unknown 05/01/2020 3:18 PM NURSE [facility]ACTITIONER PH[employer]ICIANS ASSISTANT 05/01/2020 3:23 PM NURSE PRACTITIONER PHYSICIANS ASSISTANT Yunior Haynes MD LAB - CHEMISTRY [facility] SINCLAIR [address] [address], [facility] [phone] * ALCOHOL ETHYL BLOOD (05/01/2020 3:18 PM NURSE PRACTITIONER PHYSICIANS ASSISTANT) Interpretation Ethanol None Detected None Detected mg/dL 05/01/2020 3:50 PM NURSE PRACTITIONER PHYSICIANS ASSISTANT [facility] Comment:Ethanol levels less than 10 mg/dL are resulted as None detected . Blood BLOOD SPECIMEN / Unknown Venipuncture / Unknown 05/01/2020 3:18 PM NURSE PRACTITIONER PHYSICIANS ASSISTANT 05/01/2020 3:23 PM NURSE PRACTITIONER PHYSICIANS ASSISTANT Yunior Haynes MD LAB - CHEMISTRY [facility] S[facility] Performing Organization Address [facility] Co de Phone Number [address] [address], [facility] [phone] * EKG 12-LEAD (05/01/2020 3:05 PM NURSE PRACTITIONER PHYSICIANS ASSISTANT) Ventricular Rate 60 BPM [facility] Atrial Rate 60 BPM [facility] P-R Interval 166 ms [facility] QRS Duration ms 80 ms [facility] Q-T Interval ms 442 ms [facility] QTC Calculation (Bezet) 442 ms [facility] Calculated P [place] 61 degrees [facility] MUSE Calculated R [place] 2 degrees [facility] Calculated [place] 59 degrees [facility] Interpretation EKG NORMAL SINUS RHYTHM LOW VOLTAGE QRS POSSIBLE LATERAL INFARCT , AGE UNDETERMINED CANNOT RULE OUT INFERIOR INFARCT (CITED ON OR BEFORE 12-JUL-2000) ABNORMAL ECG WHEN COMPARED WITH ECG OF 13-JUL-2000 05:49, BORDERLINE CRITERIA FOR LATERAL INFARCT ARE NOW PRESENT Confirmed by fellow Jacek Finley ([id number]) on 05/02/2020 2:47:29 PM Confirmed by Nader Yeager ([id number]) on 05/20/2020 2:25:52 PM [facility] 05/01/2020 3:05 PM NURSE PRACTITIONER PHYSICIANS ASSISTANT 05/20/2020 2:25 PM NURSE PRACTITIONER PHYSICIANS ASSISTANT Yunior Haynes MD ECG ORDERABLES Performing Organization Address City/[facility]/ZIP Co de Phone Number [facility] Care Teams Artist Model Relationship Specialty Start Date End Date Devyn Fry MD [address] [place] [address] PCP - General Family Medicine 06/14/23
--- OUTSIDE RECORDS SUMMARY | 2024-08-08 14:29 | XMS_ITS | Clinical Summary ---
Author Organization [facility] Address [address] [place] [address] Care Team Providers Care Pad Machine Offbearer Name Role Phone Devyn Fry MD Primary Care Provider [phone] Source Comments [facility],non-owned Affiliates and Associated Physician Practices is amultiple site organization consisting of ambulatory clinics and hospital sitesin [place], [place], [place] and [place]. This disclosure is being madepursuant to the Care Everywhere program and may not contain all information available regarding this patient. Last updated 18.[facility] Allergies Active Allergy Reactions Criticality Noted Date Comments Ciprofloxacin Vomiting 12/16/2019 Fenofibrate Vomiting 12/16/2019 Ibuprofen Vomiting 12/16/2019 Penicillins Rash Medium 12/16/2019 Quinolones Vomiting 12/16/2019 Medications * Be aware that medications may not be up to date on this document. Alwaysverify current medications with the patient. Medication Sig Dispensed Refills Start Date End Date Status rosuvastatin (CRESTOR) 10 MG tablet Take 2 (two) Half Tablet by mouth once daily Active valsartan (DIOVAN) 40 MG tablet Take 1 (one) tablet by mouth once daily Active omeprazole (PRILOSEC) 40 MG capsule Take 1 (one) capsule by mouth daily before breakfast Active melatonin 10 MG capsule Take 1 (one) capsule by mouth at bedtime Active allopurinol (Zyloprim) 100 MG tablet Take 1 (one) tablet by mouth once daily Active colestipol (Colestid) 1 GM tablet Take 1 (one) tablet by mouth 2 times daily 05/21/2023 Active cyanocobalamin (Vitamin B-12) 1000 MCG tablet Take 1 (one) tablet by mouth once daily Active aspirin (Aspirin) 325 MG tablet Take 1 (one) tablet by mouth once daily Active metoprolol tartrate IR (Lopressor) 25 MG tablet Take 1 (one) tablet by mouth once daily 07/11/2023 Active multivitamin daily tablet Take 1 (one) tablet by mouth daily with food Active zolpidem (Ambien) 5 MG tablet Take 1 (one) tablet by mouth at bedtime 05/06/2023 Active Family History Medical History Relation Name Comments CAD (Coronary Artery Disease) Father Cancer Father Heart Failure Father Arthritis - Rheumatoid Mother CVA Mother Asthma Sister COPD - Chronic Obstructive Pulmonary Disease Sister Cancer Sister Relation Name Status Comments Father Mother Sister Social History Tobacco Use Types Packs/Day Years [...] Comments Blood Pressure 100/60 08/29/2023 11:38 AM [employer]DENSER CLE[employer]ER Pulse 64 08/29/2023 11:38 AM [employer]DENSER CLEANER Temperature 36.7 C (98 F) 05/01/2020 6:46 PM [employer] [employer] Respiratory Rate 14 08/29/2023 11:38 AM CONDENSER CLEANER Oxygen Saturation 95% 08/29/2023 11:38 AM CONDENSER CLEANER Inhaled Oxygen Concentration - - Weight 74.4 kg (164 lb) 08/29/2023 11:38 AM CONDENSER CLEANER Height 160 cm (5' 3 ) 08/29/2023 11:38 AM CONDENSER CLEANER Body Mass Index 29.05 08/29/2023 11:38 AM CONDENSER CLEANER Plan of Treatment Health Maintenance Due Date Last Done Comments BONE DENSITY TESTING 1950 COLOGUARD (AGES 45-75) - COL ON CA SCREENING 1949 COLON MONITORING 1949 COLONOSCOPY - COLON CA SCREENING 1949 CT COLONOGRAPHY - COLON CA SCREENING 1950 Colorectal Cancer Screening 1950 FIT - COLON CA SCREENING 1949 FLEX SIG - COLON CA SCREENING 1949 MAMMOGRAM 1950 MEDICARE AWV 12 MONTHS 1949 HEPATITIS C SCREENING 08/17/1967 DTAP/TDAP/TD VACCINES (1 - Tdap) 1968 PNEUMOCOCCAL VACCINE 50+ (1 of 1 - PCV) 1999 ZOSTER VACCINE (1 of 2) 1999 COVID-19 VACCINE (1 - 2023-2 5 season) 2024 INFLUENZA VACCINE (#1) 2024 DEPRESSION SCREENING 06/27/2024 Respiratory Syncytial Virus (RSV) Vaccine Pt: or over 60 yrs (1 - 1-dose 75+ series) 2024 HEPATITIS B VACCINE Aged Out No longe r eligible based on patient's age to complete this topic HIB VACCINE Aged Out No longer eligi ble based on patient's age to complete this topic HPV VACCINE Aged Out No longer eligi ble based on patient's age to complete this topic MENINGOCOCCAL (Group B) VACCINE Aged Out No longer eligible based on patient's age to complete this topic MENINGOCOCCAL VACCINE Aged Out No kelli kellen eligible based on patient's age to complete this topic Care Teams Pad Machine Offbearer Relationship Specialty Start Date End Date Devyn Fry MD [address] [place] [address] PCP - General Family Medicine 06/14/23
--- OUTSIDE RECORDS SUMMARY | 2024-08-08 14:29 | XMS_ITS | Referral Summary ---
Author Organization [place] [address] [address] [place] [phone] Care Team Providers Care Rebrander Name Role Phone Devyn Fry MD Primary Care Provider [phone] Encounters Date Type Department Care Team Description 08/07/2024 12:15 PM WINDOWS AND DOORS INSTALLER Office Visit [facility] Card[facility] [address] [place] [address] Stented coronary artery 07/30/2024 10:30 AM WINDOWS AND DOORS INSTALLER Ancillary Procedure [facility] [address] [place] [address] [place] [phone] Positional lightheadedness 07/24/[address] [place] [phone] Halie Cai NP 07/19/2024 11:00 AM WINDOWS AND DOORS INSTALLER Office Visit [place] [address] [place] [phone] Halie Cai NP Positional lightheadedness (Primary Dx); Coronary artery disease involving round valley coronary artery of round valley heart without angina pectoris; Stage 3b chronic kidney disease (HCC) 07/03/2024 2:00 PM WINDOWS AND DOORS INSTALLER Office Visit [facility]iology [address] [place] [address] [address] [place] [phone] Halie Cai NP Positional lightheadedness (Primary Dx); Stage 3b chronic kidney disease (HCC); Coronary artery disease involving round valley coronary artery of round valley heart without angina pectoris; Status post coronary angiogram; Presence of stent in coronary artery 06/29/2024 10:00 AM WINDOWS AND DOORS INSTALLER - 06/29/2024 11:30 AM WINDOWS AND DOORS INSTALLER Surgery [facility]iac Catheterization Lab [id number] [place] [id number] Austin Richard MD RIGHT LEFT HEART CATHETERIZATION WITH CORONARY ANGIOGRAPHY GRAFT AND WITH OR WITHOUT LEFT VENTRICULOGRAPHY [id number] 06/29/2024 7:31 AM WINDOWS AND DOORS INSTALLER - 06/29/2024 5:12 PM WINDOWS AND DOORS INSTALLER Hospital Encounter [facility] Catheter[facility] Lab [id number] [place] [address] Austin Richard MD LÓPEZ (dyspnea on exertion); 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 (HCC) Discharge Disposition: Discharge to home or self care 05/23/2024 Telephone [facility]iology [address] [place] [phone] Oz Cardona MD 05/23/2024 2:15 PM WINDOWS AND DOORS INSTALLER Office Visit [facility] Cardiology [facility] [address] [place] [phone] Oz Cardona MD LÓPEZ (dyspnea on exertion) (Primary Dx); 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 (HCC); Essential hypertension; Hyperlipidemia LDL goal <70 from Last 3 Months Allergies Active Allergy Reactions Criticality Noted Date [...] 20 mg tabletIndicatio ns: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 (HCC) Take [...] by mouth daily 90 tablet 3 06/30/2024 6 Active clopidogreL (PLAVIX) 75 mg tablet Take 1 tablet (75 mg total) by mouth daily 90 tablet 3 06/30/2024 6 Active Active Problems Problem Noted Date Diagnosed Date Stage 3b chronic kidney disease 07/03/2024 Chronic anemia 07/03/2024 LÓPEZ (dyspnea on exertion) 04/11/2024 Palpitations 04/11/2024 History of transient ischemic attack 04/11/2024 Former smoker 04/11/2024 Hyperlipidemia LDL goal <70 04/11/2024 Essential hypertension 04/11/2024 Coronary artery disease of n ative artery of round valley heart with stable angina pectoris 04/11/2024 Pancreatic cyst 12/22/2021 Overview (12/22/2021): Added automatically from request for surgery [id number] Social History Tobacco Use Types Packs/Day Years [...] on file Legal Sex Female 7:57 AM WINDOWS AND DOORS INSTALLER Gender Identity Not on file Sexual Orientation Not on file Last Filed Vital Signs Vital Sign Reading Time Taken Comments Blood Pressure 121/76 08/07/2024 12:00 PM WINDOWS AND DOORS INSTALLER Pulse 75 08/07/2024 12:00 PM WINDOWS AND DOORS INSTALLER Temperature 36.5 C (97.7 F) 06/29/2024 8:00 AM WINDOWS AND DOORS INSTALLER Respiratory Rate 18 08/07/2024 12:0 0 PM WINDOWS AND DOORS INSTALLER Oxygen Saturation 96% 08/07/2024 12: 00 PM WINDOWS AND DOORS INSTALLER Inhaled Oxygen Concentration - - Weight 78.4 kg (172 lb 12.8 oz) 025 12:00 PM WINDOWS AND DOORS INSTALLER Height 160 cm (5' 3 ) 08/07/2024 12:00 PM WINDOWS AND DOORS INSTALLER Body Mass Index 30.61 08/07/2024 12:00 PM WINDOWS AND DOORS INSTALLER Plan of Treatment Not on file Medical Devices Implanted Type Area Sales Representative Door To Door Device Identifier Shelf Expiration Date Model / Serial / Lot Medtronic Card Vasc Surgery 3.0 X 18mm [place] Rx Coronary Stent [id number] - [id number] Implanted:Qty: 1 on 06/29/2024 by Austin Richard MD at [facility] Medtronic Card Vasc Surgery 03/01/2027 [id number] / / [id number] Reyes Vascular System Closure Repair Femoral Artery Suture Mediated Perclose Prostyle [id number] - [id number] Implanted:Qty: 1 on 06/29/2024 by Austin Richard MD at [facility] [employer] 04/26/2026 [id number] / / [id number] Access Closure Inc Mynx Control 6-7fr 2 Mode Balloon Catheter Sealant Lock Syringe [id number] - [id number] Implanted:Qty: 1 on 06/29/2024 by Austin Richard MD at [facility] Right: Vein Access [employer]osure Inc 03/01/2026 [id number] / / [id number] Procedures Procedure Name Priority Date/Time Associated Diagnosis Comments VASCULAR ACCESS US GUIDANCE Routine 06/29/2024 11:57 AM WINDOWS AND DOORS INSTALLER LÓPEZ (dyspnea on exertion) 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 (HCC) CORONARY OCT, 1ST VESSEL Routine 025 11:57 AM WINDOWS AND DOORS INSTALLER LÓPEZ (dyspnea on exertion) 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 (HCC) PERCUTANEOUS CORONARY LITHROTRIPSY W/ PCI (+) [id number] Routine 06/29/2024 11:57 AM WINDOWS AND DOORS INSTALLER LÓPEZ (dyspnea on exertion) 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 (HCC) ENRIQUE MAJOR CORONARY Routine 06/29/2024 11 :57 AM WINDOWS AND DOORS INSTALLER LÓPEZ (dyspnea on exertion) 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 (HCC) RIGHT LEFT HEART CATHETERIZATION CORONARY GRAFT WITH WITHOUT LEFT VENTRICULOGRAPHY ANGIOGRAM Routine 06/29/2024 11:57 AM WINDOWS AND DOORS INSTALLER LÓPEZ (dyspnea on exertion) 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 (HCC) POCT ACTIVATED CLOTTING TIME, HIGH RANGE Routine 06/29/2024 11:35 AM WINDOWS AND DOORS INSTALLER POCT ACTIVATED CLOTTING TIME, HIGH RANGE Routine 06/29/2024 11:14 AM WINDOWS AND DOORS INSTALLER MODERATE SEDATION SAME MD PETERSEN ADDL 15 MIN [id number] 06/29/2024 10:08 AM WINDOWS AND DOORS INSTALLER 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 (HCC) MODERATE SEDATION 06/29/2024 10: 08 AM WINDOWS AND DOORS INSTALLER 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 (HCC) EGFR STAT 06/29/2024 7:48 AM WINDOWS AND DOORS INSTALLER DIFFERENTIAL AUTO STAT 06/29/2024 7:4 8 AM WINDOWS AND DOORS INSTALLER CBC WITH AUTO DIFFERENTIAL STAT 06/29/2024 7:48 AM WINDOWS AND DOORS INSTALLER BASIC METABOLIC PANEL STAT 06/29/2024 7:48 AM WINDOWS AND DOORS INSTALLER from Last 3 Months Results * RIGHT LEFT HEART CATHETERIZATION CORONARY GRAFT WITH WITHOUT LEFT VENTRICULOGRAPHY ANGIOGRAM, ENRIQUE MAJOR CORONARY, PERCUTANEOUS CORONARY LITHROTRIPSY W/ PCI (+) [id number], CORONARY OCT, 1ST VESSEL, VASCULAR ACCESS US GUIDANCE (06/29/2024 11:57 AM WINDOWS AND DOORS INSTALLER) Anatomical Region Laterality Modality X-Ray Angiograph y Narrative 06/29/2024 12:25 PM WINDOWS AND DOORS INSTALLER CARDIAC CATHETERIZATION REPORT Hui Mott IP ENCOUNTER: [id number] Date of Procedure: 06/29/2024 BIRTHDATE: 1950 MANAGER STUDENT SERVICES: Austin Richard MD REFERRING PHYSICIAN: Dr. Cardona [...] patient. Patient was then brought into the ear mold laboratory technician and was draped and prepped in the usual manner. Moderate sedation was given and the right groin was subcutaneously injected with 1% lidocaine. The right femoral vein was accessed using a 7 Bhutanese sheath via micropuncture needle and modified Seldinger technique under ultrasound guidance. The right common femoral artery was accessed using a 5Fr sheath via a micropuncture needle and modified Seldinger technique under ultrasound guidance. A 7 [place]Nik[place] catheter was advanced into the right atrium, [...] of stent underexpansion. A 3.0 x 18mm [place] ENRIQUE was deployed in the proximal RCA and post dilated with a 3.5 x 12mm NC balloon to high ryan with excellent angiographic results. Hemostasis was achieved with a Perclose device at the end of the procedure. CONCLUSIONS Successful IVUS guided and IVL shockwave assisted PCI to the proximal RCA ISR with a 3.0 x 18 [place] ENRIQUE; post dilated with a 3.5 x 12 NC balloon to high ryan with excellent angiographic results. PLAN Continue ASA 81mg PO daily Start clopidogrel 75mg PO daily Continue oral lasix and aggressive risk factor modification us Austin Richard MD CV CARDIAC CATH PROCEDURES Final Result * (ABNORMAL) POC Activated Clotting Time, High Range (06/29/2024 11:35 AM WINDOWS AND DOORS INSTALLER) ACT 211(H) 87 - 138 sec Blood 06/29/2024 11:3 5 AM WINDOWS AND DOORS INSTALLER 06/29/2024 11:35 AM WINDOWS AND DOORS INSTALLER Result Pantera Richard MD LAB BLOOD ORDERABLES Final Resul t Performing Organization Address [facility] Co de Phone Number [place] [address] [place], [place] [id number] * (ABNORMAL) POC Activated Clotting Time, High Range (06/29/2024 11:14 AM WINDOWS AND DOORS INSTALLER) ACT 192(H) 87 - 138 sec Blood 06/29/2024 11:1 4 AM WINDOWS AND DOORS INSTALLER 06/29/2024 11:14 AM WINDOWS AND DOORS INSTALLER us Austin Richard MD LAB BLOOD ORDERABLES Final Resul t Performing Organization Address City/[facility] Co de Phone Number [place] [address] [place] [address] * (ABNORMAL) eGFR (06/29/2024 7:48 AM WINDOWS AND DOORS INSTALLER) Pathologist [facility] eGFR 43(L) >=60 mL/min/1. 73 m2 Comment: [...] last reviewed 2021. Blood 06/29/2024 7:48 AM WINDOWS AND DOORS INSTALLER 06/29/2024 8:04 AM WINDOWS AND DOORS INSTALLER us Austin Richard MD LAB BLOOD ORDERABLES Final Resul t [facility] [address] Department of Laboratories [place], [place] [id number] * Differential, auto (06/29/2024 7:48 AM WINDOWS AND DOORS INSTALLER) Neutrophil abs 3.0 1.5 - 6.5 K/cumm Imm gran abs 0.0 0.0 - 0.1 K/cumm [facility] Lymphocyte abs 1.4 0.8 - 3.3 K/cumm [facility] Monocyte abs 0.6 0.2 - 0.8 K/cumm [facility] Eosinophil abs 0.1 0.0 - 0.5 K/cumm [facility] Basophil abs 0.1 0.0 - 0.1 K/cumm [facility] Neutrophil pct 58.1 % [facility] Comment: Interpretive Data Percent cell count reference [...] revised on 2017. Lymphocyte pct 26.4 % [facility] Comment: Interpretive Data Percent cell count reference ranges are not reported, since discordance with absolute values may lead to misinterpretation of CBC data. Current Interpretive Data was last revised on 2017. Monocyte pct 11.5 % [facility] Comment: Interpretive Data Percent cell count reference ranges are not reported, since discordance with absolute values may lead to misinterpretation of CBC data. Current Interpretive Data was last revised on 2017. Eosinophil pct 2.7 % [facility] Comment: Interpretive Data Percent cell count reference ranges are not reported, since discordance with absolute values may lead to misinterpretation of CBC data. Current Interpretive Data was last revised on 2017. Basophil pct 1.1 % [facility] Comment: Interpretive Data Percent cell count reference ranges are not reported, since discordance with absolute values may lead to misinterpretation of CBC data. Current Interpretive Data was last revised on 2017. Blood 06/29/2024 7:48 AM WINDOWS AND DOORS INSTALLER 06/29/2024 8:03 AM WINDOWS AND DOORS INSTALLER us Austin Richard MD LAB BLOOD ORDERABLES Final Resul t [facility] [address] Department [place] [address] * (ABNORMAL) CBC with auto differential (06/29/2024 7:48 AM WINDOWS AND DOORS INSTALLER) WBC 5.2 3.8 - 9.9 K/cumm Hgb 10.1(L) 11.9 - 15.5 g/dL [facility] Hct 33.6(L) 35.6 - 45.5 % [facility] Plt 243 150 - 400 K/cumm [facility] MPV 10.0 9.1 - 12.3 fL [facility] RBC 3.44(L) 3.90 - 5.20 M/cumm [facility] MCV 97.7(H) 81.3 - 96.4 fL [facility] MCH 29.4 27.1 - 33.3 pg [facility] MCHC 30.1(L) 32.3 - 35.7 g/dL [facility] RDW CV 15.0(H) 11.1 - 14.9 % [facility]DW SD 53.4(H) 35.7 - 48.1 fL [facility] NRBC abs 0.00 0.00 - 0.01 K/cumm [facility] Blood 06/29/2024 7:48 AM WINDOWS AND DOORS INSTALLER 06/29/2024 8:03 AM WINDOWS AND DOORS INSTALLER Narrative [facility] - 06/29/2024 8:08 AM WINDOWS AND DOORS INSTALLER If most recent labs were drawn prior to 4 AM, draw only prior to initiating procedure. us Austin Richard MD LAB BLOOD ORDERABLES Final Resul t [facility] [address] Department [place] [address] * (ABNORMAL) Basic metabolic panel (06/29/2024 7:48 AM WINDOWS AND DOORS INSTALLER) Sodium 141 135 - 145 mmol/L Potassium, pl 4.4 3.3 - 4.9 mmol/L [facility] Chloride 111(H) 97 - 110 mmol/L [facility] CO2 20(L) 22 - 32 mmol/L [facility] Anion gap 10 2 - 15 mmol/L [facility] BUN 23 6 - 25 mg/dL [facility] Creatinine 1.31(H) 0.60 - 1.10 mg/dL [facility] Glucose 78 70 - 199 mg/dL [facility] Comment: Interpretive Data Fasting glucose >/= 126 [...] classification and Diagnosis of Diabetes Diabetes Care 2021; 46: S19-S40. Current interpretive data was last revised 2022. Calcium 10.1 8.5 - 10.3 mg/dL [facility] Blood 06/29/2024 7:48 AM WINDOWS AND DOORS INSTALLER 06/29/2024 8:04 AM WINDOWS AND DOORS INSTALLER us Austin Richard MD LAB BLOOD ORDERABLES Final Resul t Performing Organization Address City/State/[facility] [place] [address] [address] Department [place] [address] from Last 3 Months Insurance [facility] [facility] MEDICARE MEDICARE [employer] [place] Member Subscriber Plan / Payer (Ef fective 2014-Present) Name:Hui Mott Relation to Subscriber:Self Name:Hui Mott Payer ID:[id number] Group ID:Not on file Type:COMMERCIAL Address: [facility] [address] [place], [place] MEDICARE [employer] [place] Member Subscriber Plan / Payer (Ef fective 2014-Present) Name:Hui Mott [place] Relation to Subscriber:Self Name:Hui Mott [place] Payer ID:[id number] Group ID:Not on file Type:COMMERCIAL Address: [facility] [address] [place], [place] Advance Directives For more information, please contact: [phone] * Full Code (Latest Code Status on File) Date Activated Date Inactivated Comments 06/29/2024 1:58 PM 06/29/2024 9:12 PM * Full Code Date Activated Date Inactivated Comments 01/15/2022 8:39 AM 01/15/2022 2:41 PM Care Teams Rebrander Relationship Specialty Start Date End Date Devyn Fry MD [address] [place] [address] PCP - General Family Medicine 04/11/24
--- OUTSIDE RECORDS SUMMARY | 2024-08-08 14:29 | XMS_ITS | Referral Summary ---
Author Organization [facility] [employer] Address [address] [place] [address] Care Team Providers Care Drain Tiler Name Role Phone Devyn Fry MD Primary Care Provider [phone] [facility] [employer],non-owned Affiliates and Associated Physician Practices is amultiple site organization consisting of ambulatory clinics and hospital sitesin [place], [place], [place] and [place]. This disclosure is being madepursuant to the Care Everywhere program and may not contain all information available regarding this patient. Last updated 18.[facility] [employer] Allergies Active Allergy Reactions Criticality Noted Date [...] tablet by mouth at bedtime 05/06/2023 Active Social History Tobacco Use Types Packs/Day Years [...] Comments Blood Pressure 100/60 08/29/2023 11:38 AM BLOOD BANK TECHNOLOGIST Pulse 64 08/29/2023 11:38 AM BLOOD BANK TECHNOLOGIST Temperature 36.7 C (98 F) 05/01/2020 6:46 PM BLOOD BANK TECHNOLOGIST Respiratory Rate 14 08/29/2023 11:38 AM BLOOD BANK TECHNOLOGIST Oxygen Saturation 95% 08/29/2023 11:38 AM BLOOD BANK TECHNOLOGIST Inhaled Oxygen Concentration - - Weight 74.4 kg (164 lb) 08/29/2023 11:38 AM BLOOD BANK TECHNOLOGIST Height 160 cm (5' 3 ) 08/29/2023 11:38 AM BLOOD BANK TECHNOLOGIST Body Mass Index 29.05 08/29/2023 11:38 AM BLOOD BANK TECHNOLOGIST Plan of Treatment Not on file Care Teams Drain Tiler Relationship Specialty Start Date End Date Devyn Fry MD [address] [place] [address] PCP - General Family Medicine 06/14/23
[2024-08-08 14:42] LABS: Basophils Absolute Auto 0.1 K/mm3 (0.0-0.1); Basophils Percent Auto 0.8 % (0.2-1.2); Eosinophils Absolute Auto 0.2 K/mm3 (0-0.3); Hematocrit 32.8 % (37.0-47.0); Hemoglobin 10.1 g/dL (12.0-15.0); Immature Granulocyte Absolute 0.02 K/mm3 (0.00-0.031); Immature Granulocyte Percent A 0.3 % (0-0.5); Lymphocytes Absolute Auto 1.28 K/mm3 (0.9-3.2); Lymphocytes Percent Auto 16.8 % (18.3-44.2); Mean Corpuscular HGB Conc 30.8 g/dl (32-36); Mean Corpuscular Hemoglobin 28.8 pg (26-34); Mean Corpuscular Volume 93.4 fl (80-100); Mean Platelet Volume 9.6 fl (7.4-10.4); Monocytes Absolute Auto 0.6 K/mm3 (0.1-0.6); Monocytes Percent Auto 7.7 % (2.6-8.5); Neutrophils Absolute Auto 5.5 K/mm3 (1.3-6.7); Neutrophils Percent Auto 72.4 % (45.5-73.1); Platelet Count Result 258 k/mm3 (150-375); Red Blood Count 3.51 M/mm3 (4.2-5.4); Red Cell Distribution Width 14.2 % (11.5-14.5); White Blood Count 7.6 K/mm3 (4.5-10.0)
[2024-08-08 16:31] LABS: Iron 31 ug/dL (37-170)
[2024-08-08 16:33] LABS: Alanine Aminotransferase 23 U/L (6-35); Albumin Level 4.1 g/dL (3.5-5.1); Alkaline Phosphatase 117 U/L (38-126); Anion Gap 13 mmol/L (4-12); Aspartate Amino Transferase 82 U/L (14-36); Bilirubin,Total 0.4 mg/dL (0.2-1.3); Blood Urea Nitrogen 41 mg/dL (7-17); Calcium 10.2 mg/dL (8.4-10.2); Carbon Dioxide 19 mmol/L (22-30); Chloride 109 mmol/L (98-107); Estimated Glomerular Filt Rate 30; Glucose 98 mg/dL (65-110); Potassium 3.5 mmol/L (3.4-5.0); Sodium 141 mmol/L (137-145)
[2024-08-08 16:39] LABS: Immunoglobulin A 173 mg/dL (70-400); Immunoglobulin G 435 mg/dL (700-1600); Immunoglobulin M 47 mg/dL (40-230)
[2024-08-08 16:44] LABS: Percent Iron Saturation 7 % (20-50)
[2024-08-08 17:08] LABS: Ferritin 8.58 ng/mL (11.1-264)
[2024-08-08 17:40] LABS: Folic Acid > 20.0 ng/mL (2.76->20)
[2024-08-10 11:23] LABS: Kappa\\Lambda Light Chains 1.61 (0.26-1.65); Lambda Light Chain 33.9 mg/L (5.7-26.3)
[2024-08-10 16:08] LABS: Protein, Total 6.5 g/dL (6.1-8.1)
[2024-08-10 21:13] LABS: Albumin 3.9 g/dL (3.8-4.8); Alpha 1 Globulin 0.4 g/dL (0.2-0.3); Beta 1 Globulin 0.5 g/dL (0.4-0.6); Gamma Globulin 0.5 g/dL (0.8-1.7)
== END 2024-08-08 14:22 | disposition home or self-care (01) ==
PROVIDERS: PCP Family Medicine; Visit Provider Internal Medicine Hematology & Oncology
DX: D72.9 Disorder of white blood cells, unspecified (principal); D64.9 Anemia, unspecified
CPT/HCPCS: 36415; 80053; 82607; 82728; 82746; 82784; 83540; 83550; 83883; 84155; 84165; 85025

== ENCOUNTER 2024-08-13 15:12 | Inpatient (IN) | payer MEDICARE, OTHER, SELFPAY ==
--- NOTE | ~2024-08-13 | XR_ITS ---
EXAMINATION: XR chest 2V DATE: 08/13/2024 16:41 INDICATION: Short of breath, cough and chest congestion TECHNIQUE: PA and lateral views of the chest were obtained. COMPARISON: Chest radiograph dated 01/13/2024 FINDINGS: Unchanged mild linear discoid atelectasis/scarring at the right lung base. No new airspace opacities, pulmonary edema, pleural effusion or pneumothorax. Heart size is normal. hair clipper power likely exte rnal to the patient overlies the sternum. Moderate thoracic spondylosis. IMPRESSION: 1. No acute cardiopulmonary disease. Reviewed, dictated and finalized at location A. TROPLATER HELPER
--- NOTE | ~2024-08-13 | CT_ITS ---
EXAMINATION: CT brain wo con DATE: 08/13/2024 21:07 INDICATION: Head injury . TECHNIQUE: Computed tomography (CT) of the head was performed without intravenous contrast. The mA wa s adjusted according to patient size. Iterative reconstruction technique was employed. The dose-lengt h product was 681.00 mGy-cm. COMPARISON: 06/21/2024. FINDINGS: No acute intracranial hemorrhage or extra-axial fluid collection. No hydrocephalus, mass, or herniation. No acute ischemic infarct. Unremarkable dural venous sinus attenuation. No acute osseous abnormality. The aerated spaces are clear. Moderate atrophy and chronic white matter change. Atherosclerotic intracranial calcification. Old emmanuel ateral basal ganglia lacunar infarcts. Focal left medial occipital encephalomalacia. IMPRESSION: No acute intracranial process. Reviewed, dictated and finalized at location K. ET MAKER
[2024-08-13 15:18] VITALS: BP 114/68; PULSE 78; RESP 17; TEMP 36.4; O2SAT 95
--- NOTE | 2024-08-13 16:11 | ED.WEAKNESS ---
HPI - Weakness General Chief complaint: Weakness <GIRMA Herrera Last Filed: 08/13/24 16:21> Stated complaint: weakness, chest congestion <GIRMA Herrera Last Filed: 08/13/24 16:21> Time Seen by Provider: 08/13/24 16:11 <GIRMA Herrera Last Filed: 08/13/24 16:21> Focused HPI: Patient is a 73 y/o female, with PMH of CAD, CHF, CKD, who presents to the ED with c/o URI sx's/weakness. Patient reports she has had a recent sinus infection. Has been on abx for the past 5 days. States it is now moving into her chest. C/o cough, chest congestion, SOB, CP. States since last night, she has been feeling increasingly weak. Reports her legs feel very weak and shaky, and she is unable to walk w/o assistance otherwise will fall. Denies fevers. Son reports patient had cardiac stent placement [address] Richard. GENERAL: Ill-appearing, elderly, obese with BMI of 30.1, in mild acute distress. HEAD: Normocephalic, atraumatic. CHEST: Mild respiratory distress. Frequent coughing. Coarse lung sounds emmanuel HEART: Regular rate and rhythm.? NEURO: ?Alert and oriented x3. Patient screened in triage and initial orders placed.? ?Additional care and disposition to be based upon?diagnostic testing and treatment. <GIRMA Herrera Last Filed: 08/13/24 16:21> Source: patient and family <GIRMA Herrera Last Filed: 08/13/24 16:21> Mode of arrival: ambulatory <GIRMA Herrera Last Filed: 08/13/24 16:21> Limitations: no limitations <GIRMA Herrera Last Filed: 08/13/24 16:21> Related Data Home medications: Home Medications ?Medication ?Instructions ?Recorded ?Confirmed ?Last Taken ?Type furosemide 20 mg tablet (Lasix) 20 mg PO DAILY 07/13/19 06/20/24 06/01/22 History omeprazole 40 mg capsule,delayed 40 mg PO DAILY 07/13/19 06/20/24 06/01/22 History release valsartan 40 mg tablet 40 mg PO QPM 07/13/19 06/20/24 06/01/22 History allopurinol 300 mg tablet 300 mg PO DAILY 03/20/24 06/20/24 Unknown History aspirin 325 mg tablet 325 mg PO DAILY 03/20/24 06/20/24 Unknown History coenzyme Q10 75 mg capsule (Ultra 75 mg PO DAILY 03/20/24 06/20/24 Unknown History CoQ10) cyclobenzaprine 10 mg tablet 10 mg PO TID 03/20/24 06/20/24 Unknown History melatonin 10 mg capsule 10 mg PO QHS 03/20/24 06/20/24 Unknown History potassium citrate 99 mg capsule 99 mg PO DAILY 03/20/24 06/20/24 Unknown History sour ruffin extract 1,000 mg 1,000 mg PO DAILY 03/20/24 06/20/24 Unknown History capsule (Tart Ruffin Extract) atorvastatin 20 mg tablet 20 mg PO DAILY 06/18/24 06/20/24 Unknown History <Luna Carter PA-C - Last Filed: 08/13/24 16:21> Allergies/Adverse reactions: Allergies Allergy/AdvReac Type Severity Reaction Status Date / Time fenofibrate Allergy Intermediate ITCHING, Verified 08/13/24 15:30 HIVES ciprofloxacin Allergy Unknown Unknown Verified 08/13/24 15:30 Penicillins Allergy Unknown Unknown Verified 08/13/24 15:30 <Luna Carter PA-C - Last Filed: 08/13/24 16:21> Review of Systems Review of Systems: All systems reviewed & are unremarkable except as noted in HPI and below <Nick Cummins MD - Last Filed: 08/13/24 22:09> [facility] Past Medical History Medical History: Medical History Irritable bowel syndrome with diarrhea Nausea and vomiting Abdominal pain History of colon cancer History of heart attack 1999 Hyperlipidemia Hypertension CHF (congestive heart failure) TIA (transient ischemic attack) CVA (cerebral vascular accident) Coronary artery disease Colon cancer <Luna Carter PA-C - Last Filed: 08/13/24 16:21> Surgical History Surgical History: Surgical History History of hysterectomy History of cholecystectomy History of appendectomy History of coronary artery stent placement History of colon resection <Luna Carter PA-C - Last Filed: 08/13/24 16:21> Family History Family History: Family History Father Family history of heart disease in male family member before age 55 Cancer, bladder, neck <Luna Carter PA-C - Last Filed: 08/13/24 16:21> Social History Social History: Social History Smoking packs per day: 1 Smoking cigarettes per day: 20.0 Years smoked: 30 Smoking pack-years: 30.00 Smoking status: Former smoker Tobacco type: cigarettes Second hand tobacco smoke exposure: No Smoking end date: 06/27/12 Alcohol intake: never Substance use: never Substance use type: does not use Do You Feel Safe in your Home?: Yes Lack of Transportation: No Lack of Food: Never True Current Housing: I Have Housing Concerned About Future Housing: No Difficulty Paying Gas/Electric Bills: No Difficulty Paying for Meds: YES Currently Unemployed: No Education: High School Diploma/GED Difficulty w/ Childcare or Family Care: No Living arrangements: with family Gender identity (if verbalized by the patient): Female Sexual Orientation (if Verbalized by the Patient): Straight or Heterosexual Spiritual care concerns: No Agree to blood products: Yes <Luna Carter PA-C - Last Filed: 08/13/24 16:21> Exam Narrative: APPEARANCE: Ill-appearing HEAD: normocephalic, ecchymosis to forehead. EYES: PERRLA/EOMI, conjunctivae clear. NOSE: Normal no drainage EARS:TMS clear with good light reflex. THROAT: Pharynx clear, no exudate. NECK: Supple. No adenopathy, no masses. RESPIRATORY: Airway patent, respirations nonlabored. Clear to auscultation bilaterally, no rales, rhonchi, wheezing. CARDIOVASCULAR: Regular rate and rhythm without murmurs rubs or gallops. ABDOMINAL: Soft, nontender, nondistended, normal bowel sounds MUSCULOSKELETAL: Moves all extremities. Strength/ROM intact, No edema, No calf tenderness. NEURO: Alert. Cranial nerves II through XII intact. Good gait. Good coordination SKIN: Warm, dry. Normal Color <Nick Cummins MD - Last Filed: 08/13/24 22:09> Course Vital Signs Vital signs: Vital Signs Temperature 97.5 F L 08/13/24 15:18 Pulse Rate 78 08/13/24 15:18 Respiratory Rate 17 08/13/24 15:18 Blood Pressure 114/68 08/13/24 15:18 Pulse Oximetry 95 08/13/24 15:18 Oxygen Delivery Room Air 08/13/24 15:18 Temperature 97.5 F L 08/13/24 15:18 Pulse Rate 77 08/13/24 20:59 Respiratory Rate 17 08/13/24 15:18 Blood Pressure 94/62 L 08/13/24 20:59 Pulse Oximetry 95 08/13/24 15:18 Oxygen Delivery Room Air 08/13/24 15:18 <Luna Carter PA-C - Last Filed: 08/13/24 16:21> Vital Signs Temperature 97.5 F L 08/13/24 15:18 Pulse Rate 78 08/13/24 15:18 Respiratory Rate 17 08/13/24 15:18 Blood Pressure 114/68 08/13/24 15:18 Pulse Oximetry 95 08/13/24 15:18 Oxygen Delivery Room Air 08/13/24 15:18 Temperature 97.5 F L 08/13/24 15:18 Pulse Rate 77 08/13/24 20:59 Respiratory Rate 17 08/13/24 15:18 Blood Pressure 94/62 L 08/13/24 20:59 Pulse Oximetry 95 08/13/24 15:18 Oxygen Delivery Room Air 08/13/24 15:18 <Nick Cummins MD - Last Filed: 08/13/24 22:09> MDM - Weakness MDM Narrative Medical decision making narrative: MSE by LAUREANO in triage. <Luna Carter PA-C - Last Filed: 08/13/24 16:21> MSE by LAUREANO in triage. 73-year-old female with history of CHF, coronary disease and chronic kidney disease presenting the emergency department for evaluation for complaints of sinus congestion that is worsened into a cough. Patient is also reporting that she has had increased generalized weakness today. Patient has had multiple falls over the last few days including a near syncopal episode when she was at urgent care today. Patient is currently afebrile with no leukocytosis and a hemoglobin of 10.2 which is similar to her baseline. Patient's INR is 1.0. Patient's creatinine is 1.57 but is not far from her baseline. Patient's BNP is elevated at 1780. Patient was positive for influenza A. Chest x-ray showed no acute cardiopulmonary abnormality. Head CT is pending. Patient was profoundly orthostatic in the emergency department. Patient did not tolerate standing very well patient is being treated with a small bolus of IV fluids but case will be discussed with hospitalist for admission for slow rehydration due to her profound orthostatic hypotension underlying CHF. Case was discussed with hospitalist patient was accepted for admission. Patient was started on Tamiflu. Patient family were updated on the results of the workup and plan for admission. <Nick Cummins MD - Last Filed: 08/13/24 22:09> Differential Diagnosis Differential diagnosis: Likely acute myocardial infarction, hypoglycemia, hypothyroidism, sepsis and dehydration <Nick Cummins MD - Last Filed: 08/13/24 22:09> Lab Data Attestation: I reviewed the patient's lab results. <Nick Cummins MD - Last Filed: 08/13/24 22:09> Result diagrams: 08/13/24 17:50 08/13/24 17:50 <Luna Carter PA-C - Last Filed: 08/13/24 16:21> Labs: Lab Results 08/13/24 Range/Units 17:50 WBC 4.8 (4.5-10.0) K/mm3 RBC 3.59 L (4.2-5.4) M/mm3 Hgb 10.2 L (12.0-15.0) g/dL Hct 33.2 L (37.0-47.0) % MCV 92.5 (80-100) fl MCH 28.4 (26-34) pg MCHC 30.7 L (32-36) g/dl RDW 14.4 (11.5-14.5) % Plt Count 219 (150-375) k/mm3 MPV 9.9 (7.4-10.4) fl Immature Gran % (Auto) 0.2 (0-0.5) % Neut % (Auto) 65.8 (45.5-73.1) % Lymph % (Auto) 18.9 (18.3-44.2) % [place] % (Auto) 14.1 H (2.6-8.5) % Eos % (Auto) 0.2 (0-4.4) % Baso % (Auto) 0.8 (0.2-1.2) % Lymph # (Auto) 0.90 (0.9-3.2) K/mm3 [place] # (Auto) 0.7 H (0.1-0.6) K/mm3 Eos # (Auto) 0.0 (0-0.3) K/mm3 Baso # (Auto) 0.0 (0.0-0.1) K/mm3 Abs Immat Gran (auto) 0.01 (0.00-0.031) K/mm3 Absolute Neuts (auto) 3.1 (1.3-6.7) K/mm3 Absolute Nucleated RBC 0.000 (0.0-0.012) K/mm3 Nucleated RBC % 0.0 (0.0-0.2) % PT 13.5 (11.1-14.7) Seconds INR 1.0 APTT 29.3 (22.3-36.8) Seconds Sodium 139 (137-145) mmol/L Potassium 3.4 (3.4-5.0) mmol/L Chloride 107 (98-107) mmol/L Carbon Dioxide 21 L (22-30) mmol/L Anion Gap 11 (4-12) mmol/L BUN 27 H D (7-17) mg/dL Creatinine 1.57 H (0.7-1.0) mg/dL Estim Creat Clear Calc 28 ml/min Estimated GFR 32 L (59 - ) Glucose 90 (65-110) mg/dL Calcium 10.4 H (8.4-10.2) mg/dL Total Bilirubin 0.4 (0.2-1.3) mg/dL AST 44 H (14-36) U/L ALT 27 (6-35) U/L Alkaline Phosphatase 117 (38-126) U/L Troponin I 0.015 (0.000-0.034) ng/mL NT-Pro-B Natriuret Pep 1780 H (19.9-100) pg/mL Total Protein 7.0 (6.3-8.2) g/dL Albumin 3.9 (3.5-5.1) g/dL Influenza A (RT-PCR) Positive A (Negative) Influenza B (RT-PCR) Negative (Negative) RSV (RT-PCR) Negative (Negative) SARS-CoV-2 RNA (RT-PCR) Negative (Negative) <Luna Carter PA-C - Last Filed: 08/13/24 16:21> Lab Results 08/13/24 Range/Units 17:50 WBC 4.8 (4.5-10.0) K/mm3 RBC 3.59 L (4.2-5.4) M/mm3 Hgb 10.2 L (12.0-15.0) g/dL Hct 33.2 L (37.0-47.0) % MCV 92.5 (80-100) fl MCH 28.4 (26-34) pg MCHC 30.7 L (32-36) g/dl RDW 14.4 (11.5-14.5) % Plt Count 219 (150-375) k/mm3 MPV 9.9 (7.4-10.4) fl Immature Gran % (Auto) 0.2 (0-0.5) % Neut % (Auto) 65.8 (45.5-73.1) % Lymph % (Auto) 18.9 (18.3-44.2) % [place] % (Auto) 14.1 H (2.6-8.5) % Eos % (Auto) 0.2 (0-4.4) % Baso % (Auto) 0.8 (0.2-1.2) % Lymph # (Auto) 0.90 (0.9-3.2) K/mm3 [place] # (Auto) 0.7 H (0.1-0.6) K/mm3 Eos # (Auto) 0.0 (0-0.3) K/mm3 Baso # (Auto) 0.0 (0.0-0.1) K/mm3 Abs Immat Gran (auto) 0.01 (0.00-0.031) K/mm3 Absolute Neuts (auto) 3.1 (1.3-6.7) K/mm3 Absolute Nucleated RBC 0.000 (0.0-0.012) K/mm3 Nucleated RBC % 0.0 (0.0-0.2) % PT 13.5 (11.1-14.7) Seconds INR 1.0 APTT 29.3 (22.3-36.8) Seconds Sodium 139 (137-145) mmol/L Potassium 3.4 (3.4-5.0) mmol/L Chloride 107 (98-107) mmol/L Carbon Dioxide 21 L (22-30) mmol/L Anion Gap 11 (4-12) mmol/L BUN 27 H D (7-17) mg/dL Creatinine 1.57 H (0.7-1.0) mg/dL Estim Creat Clear Calc 28 ml/min Estimated GFR 32 L (59 - ) Glucose 90 (65-110) mg/dL Calcium 10.4 H (8.4-10.2) mg/dL Total Bilirubin 0.4 (0.2-1.3) mg/dL AST 44 H (14-36) U/L ALT 27 (6-35) U/L Alkaline Phosphatase 117 (38-126) U/L Troponin I 0.015 (0.000-0.034) ng/mL NT-Pro-B Natriuret Pep 1780 H (19.9-100) pg/mL Total Protein 7.0 (6.3-8.2) g/dL Albumin 3.9 (3.5-5.1) g/dL Influenza A (RT-PCR) Positive A (Negative) Influenza B (RT-PCR) Negative (Negative) RSV (RT-PCR) Negative (Negative) SARS-CoV-2 RNA (RT-PCR) Negative (Negative) <Nick Cummins MD - Last Filed: 08/13/24 22:09> Imaging Data Radiologist's impression: Impressions Chest X-Ray 08/13/24 16:43 IMPRESSION: 1. No acute cardiopulmonary disease. Head CT 08/13/24 21:14 IMPRESSION: No acute intracranial process. <Nick Cummins MD - Last Filed: 08/13/24 22:09> Discharge Plan Discharge Clinical Impression: Influenza A, Orthostatic hypotension, Near syncope <Luna Carter PA-C - Last Filed: 08/13/24 16:21> Patient Disposition: Still a Patient <Luna Carter PA-C - Last Filed: 08/13/24 16:21> Condition: Stable <Luna Carter PA-C - Last Filed: 08/13/24 16:21> Patient Language: Salvadorean <Luna Carter PA-C - Last Filed: 08/13/24 16:21> Prescriptions: No Action atorvastatin 20 mg tablet 20 mg PO DAILY allopurinol 300 mg tablet 300 mg PO DAILY aspirin 325 mg tablet 325 mg PO DAILY melatonin 10 mg capsule 10 mg PO QHS cyclobenzaprine 10 mg tablet 10 mg PO TID potassium citrate 99 mg capsule 99 mg PO DAILY Tart Ruffin Extract 1,000 mg capsule 1,000 mg PO DAILY Ultra CoQ10 75 mg capsule 75 mg PO DAILY omeprazole 40 mg capsule,delayed release(DR/EC) 40 mg PO DAILY furosemide [Lasix] 20 mg tablet 20 mg PO DAILY valsartan 40 mg tablet 40 mg PO QPM <Luna Carter PA-C - Last Filed: 08/13/24 16:21> Follow-up/Referrals: Lisandra,Devyn Roberts MD [Primary Care Provider] - <GIRMA Herrera Last Filed: 08/13/24 16:21>
--- NOTE | 2024-08-13 16:14 | ECG_ITS ---
Test Date: 2024-08-13 20:02:11 Measurements Intervals [place] Rate: 73 P: 4 [place]: 152 QRS: -19 QRSD: 89 T: 50 QT: 396 QTc: 437 Interpretive Statements SINUS RHYTHM DELAYED PRECORDIAL R/S TRANSITION MINIMAL Q WAVES- HIGH LATERAL LEADS BASELINE ARTIFACT- I, II, III, AVR, AVL, AVF BORDERLINE ECG No previous ECG available for comparison Electronically Signed On 08-14-2024 06:28:06 TAXATION INSPECTOR by Priyank Waddell D.O.
--- OUTSIDE RECORDS SUMMARY | 2024-08-13 17:54 | XMS_ITS | Referral Summary ---
Author Organization [place] [address] [address] [place] [phone] Care Team Providers Care [employer] Dean Name Role Phone Devyn Fry MD Primary Care Provider [phone] Encounters Date Type Department Care Team Description 08/07/2024 12:15 PM AIR BRAKE WORKER Office Visit [facility] [address] [place] [address] Stented coronary artery 07/30/2024 10:30 AM AIR BRAKE WORKER Ancillary Procedure [facility] [address] [place] [address] [address] [place] [phone] Positional lightheadedness 07/24/[address] [place] [phone] Halie Cai NP 07/19/2024 11:00 AM AIR BRAKE WORKER Office Visit [place] [address] [place] [phone] Halie Cai NP Positional lightheadedness (Primary Dx); Coronary artery disease involving council coronary artery of council heart without angina pectoris; Stage 3b chronic kidney disease (HCC) 07/03/2024 2:00 PM AIR BRAKE WORKER Office Visit [facility] [address] [place] [address] [address] [place] [phone] Halie Cai NP Positional lightheadedness (Primary Dx); Stage 3b chronic kidney disease (HCC); Coronary artery disease involving council coronary artery of council heart without angina pectoris; Status post coronary angiogram; Presence of stent in coronary artery 06/29/2024 10:00 AM AIR BRAKE WORKER - 06/29/2024 11:30 AM AIR BRAKE WORKER Surgery [facility] Cardiac Catheterization Lab [id number] [place] [address] Austin Richard MD RIGHT LEFT HEART CATHETERIZATION WITH CORONARY ANGIOGRAPHY GRAFT AND WITH OR WITHOUT LEFT VENTRICULOGRAPHY [id number] 06/29/2024 7:31 AM AIR BRAKE WORKER - 06/29/2024 5:12 PM AIR BRAKE WORKER Hospital Encounter [facility] Cardiac Catheterization Lab [id number] [place] [address] Austin Richard MD LÓPEZ (dyspnea on exertion); Coronary artery disease of council artery of council heart with stable angina pectoris (HCC) Discharge Disposition: Discharge to home or self care 05/23/2024 Telephone [facility] [address] [place] [phone] Oz Cardona MD 05/23/2024 2:15 PM AIR BRAKE WORKER Office Visit [facility] [address] [place] [phone] Oz Cardona MD LÓPEZ (dyspnea on exertion) (Primary Dx); Coronary artery disease of council artery of council heart with stable angina pectoris (HCC); Essential [...] 20 mg tabletIndicatio ns:Coronary artery disease of council artery of council heart with stable angina pectoris (HCC) Take [...] artery disease of n ative artery of council heart with stable angina pectoris 04/11/2024 Pancreatic cyst 12/22/2021 Overview (12/22/2021): Added automatically from request for surgery [id number] Social History Tobacco Use Types Packs/Day Years [...] on file Legal Sex Female 7:57 AM AIR BRAKE WORKER Gender Identity Not on file Sexual Orientation Not on file Last Filed Vital Signs Vital Sign Reading Time Taken Comments Blood Pressure 121/76 08/07/2024 12:00 PM AIR BRAKE WORKER Pulse 75 08/07/2024 12:00 PM AIR BRAKE WORKER Temperature 36.5 C (97.7 F) 06/29/2024 8:00 AM AIR BRAKE WORKER Respiratory Rate 18 08/07/2024 12:0 0 PM AIR BRAKE WORKER Oxygen Saturation 96% 08/07/2024 12: 00 PM AIR BRAKE WORKER Inhaled Oxygen Concentration - - Weight 78.4 kg (172 lb 12.8 oz) 025 12:00 PM AIR BRAKE WORKER Height 160 cm (5' 3 ) 08/07/2024 12:00 PM AIR BRAKE WORKER Body Mass Index 30.61 08/07/2024 12:00 PM AIR BRAKE WORKER Plan of Treatment Not on file Medical Devices Implanted Type Area Autoglazier Device Identifier Shelf Expiration Date Model / Serial / Lot Medtronic Card Vasc Surgery 3.0 X 18mm Marcelo Maries Rx Coronary Stent [id number] - [id number] Implanted:Qty: 1 on 06/29/2024 by Austin Richard MD at [facility] Medtronic Card Vasc Surgery 03/01/2027 [id number] / / [id number] Reyes Vascular System Closure Repair Femoral Artery Suture Mediated Perclose Prostyle 98767-78 - [id number] Implanted:Qty: 1 on 06/29/2024 by Austin Richard MD at [facility] Reyes Vascular 04/26/2026 [id number] / / [id number] Closure Inc Mynx Control 6-7fr 2 Mode Balloon Catheter Sealant Lock Syringe [id number] - [id number] Implanted:Qty: 1 on 06/29/2024 by Austin Richard MD at [facility] Right: Vein Access Closure Inc 03/01/2026 [id number] / / [id number] Procedures Procedure Name Priority Date/Time Associated Diagnosis Comments VASCULAR ACCESS US GUIDANCE Routine 06/29/2024 11:57 AM AIR BRAKE WORKER LÓPEZ (dyspnea on exertion) Coronary artery disease of council artery of council heart with stable angina pectoris (HCC) CORONARY OCT, 1ST VESSEL Routine 025 11:57 AM AIR BRAKE WORKER LÓPEZ (dyspnea on exertion) Coronary artery disease of council artery of council heart with stable angina pectoris (HCC) PERCUTANEOUS CORONARY LITHROTRIPSY W/ PCI (+) [id number] Routine 06/29/2024 11:57 AM AIR BRAKE WORKER LÓPEZ (dyspnea on exertion) Coronary artery disease of council artery of council heart with stable angina pectoris (HCC) ENRIQUE MAJOR CORONARY Routine 06/29/2024 11 :57 AM AIR BRAKE WORKER LÓPEZ (dyspnea on exertion) Coronary artery disease of council artery of council heart with stable angina pectoris (HCC) RIGHT LEFT HEART CATHETERIZATION CORONARY GRAFT WITH WITHOUT LEFT VENTRICULOGRAPHY ANGIOGRAM Routine 06/29/2024 11:57 AM AIR BRAKE WORKER LÓPEZ (dyspnea on exertion) Coronary artery disease of council artery of council heart with stable angina pectoris (HCC) POCT ACTIVATED CLOTTING TIME, HIGH RANGE Routine 06/29/2024 11:35 AM AIR BRAKE WORKER POCT ACTIVATED CLOTTING TIME, HIGH RANGE Routine 06/29/2024 11:14 AM AIR BRAKE WORKER MODERATE SEDATION SAME MD PETERSEN ADDL 15 MIN [id number] 06/29/2024 10:08 AM AIR BRAKE WORKER Coronary artery disease of council artery of council heart with stable angina pectoris (HCC) MODERATE SEDATION 06/29/2024 10: 08 AM AIR BRAKE WORKER Coronary artery disease of council artery of council heart with stable angina pectoris (HCC) EGFR STAT 06/29/2024 7:48 AM AIR BRAKE WORKER DIFFERENTIAL AUTO STAT 06/29/2024 7:4 8 AM AIR BRAKE WORKER CBC WITH AUTO DIFFERENTIAL STAT 06/29/2024 7:48 AM AIR BRAKE WORKER BASIC METABOLIC PANEL STAT 06/29/2024 7:48 AM AIR BRAKE WORKER from Last 3 Months Results * RIGHT LEFT HEART CATHETERIZATION CORONARY GRAFT WITH WITHOUT LEFT VENTRICULOGRAPHY ANGIOGRAM, ENRIQUE MAJOR CORONARY, PERCUTANEOUS CORONARY LITHROTRIPSY W/ PCI (+) [id number], CORONARY OCT, 1ST VESSEL, VASCULAR ACCESS US GUIDANCE (06/29/2024 11:57 AM AIR BRAKE WORKER) Anatomical Region Laterality Modality X-Ray Angiograph y Narrative 06/29/2024 12:25 PM AIR BRAKE WORKER CARDIAC CATHETERIZATION REPORT Hui Mott IP ENCOUNTER: [id number] Date of Procedure: 06/29/2024 BIRTHDATE: 1950 SUPERVISOR ERECTION SHOP: Austin Richard MD REFERRING PHYSICIAN: Dr. Cardona [...] patient. Patient was then brought into the forestry laborer and was draped and prepped in the usual manner. Moderate sedation was given and the right groin was subcutaneously injected with 1% lidocaine. The right femoral vein was accessed using a 7 Algerian sheath via micropuncture needle and modified Seldinger technique under ultrasound guidance. The right common femoral artery was accessed using a 5Fr sheath via a micropuncture needle and modified Seldinger technique under ultrasound guidance. A 7 Algerian Derry-Nikky catheter was advanced into the right atrium, [...] of stent underexpansion. A 3.0 x 18mm [place] Maries ENRIQUE was deployed in the proximal RCA and post dilated with a 3.5 x 12mm NC balloon to high ryan with excellent angiographic results. Hemostasis was achieved with a Perclose device at the end of the procedure. CONCLUSIONS Successful IVUS guided and IVL shockwave assisted PCI to the proximal RCA ISR with a 3.0 x 18 [place] Maries ENRIQUE; post dilated with a 3.5 x 12 NC balloon to high ryan with excellent angiographic results. PLAN Continue ASA 81mg PO daily Start clopidogrel 75mg PO daily Continue oral lasix and aggressive risk factor modification us Austin Richard MD CV CARDIAC CATH PROCEDURES Final Result * (ABNORMAL) POC Activated Clotting Time, High Range (06/29/2024 11:35 AM AIR BRAKE WORKER) ACT 211(H) 87 - 138 sec Blood 06/29/2024 11:3 5 AM AIR BRAKE WORKER 06/29/2024 11:35 AM AIR BRAKE WORKER Result Pantera Richard MD LAB BLOOD ORDERABLES Final Resul t Performing Organization Address [facility]/[employer] [employer] de Phone Number GNEEVA [address] [place], [place] [id number] * (ABNORMAL) POC Activated Clotting Time, High Range (06/29/2024 11:14 AM AIR BRAKE WORKER) ACT 192(H) 87 - 138 sec Blood 06/29/2024 11:1 4 AM AIR BRAKE WORKER 06/29/2024 11:14 AM AIR BRAKE WORKER us Austin Richard MD LAB BLOOD ORDERABLES Final Resul t Performing Organization Address City/[facility]/[employer] [employer] Phone Number [place] [address] [place] [address] * (ABNORMAL) eGFR (06/29/2024 7:48 AM AIR BRAKE WORKER) Pathologist [facility] eGFR 43(L) >=60 mL/min/1. 73 m2 Comment: [...] last reviewed 2021. Blood 06/29/2024 7:48 AM AIR BRAKE WORKER 06/29/2024 8:04 AM AIR BRAKE WORKER us Austin Richard MD LAB BLOOD ORDERABLES Final Resul t [facility] [address] Department of Laboratories [place], [place] [id number] * Differential, auto (06/29/2024 7:48 AM AIR BRAKE WORKER) Neutrophil abs 3.0 1.5 - 6.5 K/cumm Imm gran abs 0.0 0.0 - 0.1 K/cumm [facility] Lymphocyte abs 1.4 0.8 - 3.3 K/cumm [facility] Monocyte abs 0.6 0.2 - 0.8 K/cumm [facility] Eosinophil abs 0.1 0.0 - 0.5 K/cumm [facility] Basophil abs 0.1 0.0 - 0.1 K/cumm [facility] Neutrophil pct 58.1 % [facility] Comment: Interpretive Data Percent cell count reference [...] revised on 2017. Lymphocyte pct 26.4 % [facility] Comment: Interpretive Data Percent cell count reference ranges are not reported, since discordance with absolute values may lead to misinterpretation of CBC data. Current Interpretive Data was last revised on 2017. Monocyte pct 11.5 % [facility] Comment: Interpretive Data Percent cell count reference ranges are not reported, since discordance with absolute values may lead to misinterpretation of CBC data. Current Interpretive Data was last revised on 2017. Eosinophil pct 2.7 % [facility] Comment: Interpretive Data Percent cell count reference ranges are not reported, since discordance with absolute values may lead to misinterpretation of CBC data. Current Interpretive Data was last revised on 2017. Basophil pct 1.1 % [facility] Comment: Interpretive Data Percent cell count reference ranges are not reported, since discordance with absolute values may lead to misinterpretation of CBC data. Current Interpretive Data was last revised on 2017. Blood 06/29/2024 7:48 AM AIR BRAKE WORKER 06/29/2024 8:03 AM AIR BRAKE WORKER us Austin Richard MD LAB BLOOD ORDERABLES Final Resul t [facility] [address] Department [place] [address] * (ABNORMAL) CBC with auto differential (06/29/2024 7:48 AM AIR BRAKE WORKER) WBC 5.2 3.8 - 9.9 K/cumm Hgb 10.1(L) 11.9 - 15.5 g/dL [facility] Hct 33.6(L) 35.6 - 45.5 % [facility] Plt 243 150 - 400 K/cumm [facility] MPV 10.0 9.1 - 12.3 fL [facility] RBC 3.44(L) 3.90 - 5.20 M/cumm [facility] MCV 97.7(H) 81.3 - 96.4 fL [facility] MCH 29.4 27.1 - 33.3 pg [facility] MCHC 30.1(L) 32.3 - 35.7 g/dL [facility] CV 15.0(H) 11.1 - 14.9 % [facility] SD 53.4(H) 35.7 - 48.1 fL [facility] NRBC abs 0.00 0.00 - 0.01 K/cumm [facility] Blood 06/29/2024 7:48 AM AIR BRAKE WORKER 06/29/2024 8:03 AM AIR BRAKE WORKER Narrative [facility] - 06/29/2024 8:08 AM AIR BRAKE WORKER If most recent labs were drawn prior to 4 AM, draw only prior to initiating procedure. us Austin Richard MD LAB BLOOD ORDERABLES Final Resul t [facility] [address] Department [place] [address] * (ABNORMAL) Basic metabolic panel (06/29/2024 7:48 AM AIR BRAKE WORKER) Sodium 141 135 - 145 mmol/L Potassium, pl 4.4 3.3 - 4.9 mmol/L [facility] Chloride 111(H) 97 - 110 mmol/L [facility] CO2 20(L) 22 - 32 mmol/L [facility] Anion gap 10 2 - 15 mmol/L [facility] BUN 23 6 - 25 mg/dL [facility] Creatinine 1.31(H) 0.60 - 1.10 mg/dL [facility] Glucose 78 70 - 199 mg/dL [facility] Comment: Interpretive Data Fasting glucose [...] 2022. Calcium 10.1 8.5 - 10.3 mg/dL [facility] Blood 06/29/2024 7:48 AM AIR BRAKE WORKER 06/29/2024 8:04 AM AIR BRAKE WORKER us Austin Richard MD LAB BLOOD ORDERABLES Final Resul t Performing Organization Address City/[place] Number [place] [address] [address] Department [place] [address] from Last 3 Months Insurance [employer] [facility] [place] [address] MEDICARE [employer] (powering [employer]) Address: [address] [address] [employer] [place] Member Subscriber Plan / Payer (Ef fective 2014-Present) Name:Hui Mott Relation to Subscriber:Self Name:Hui Mott Payer ID:[id number] Group ID:Not on file Type:COMMERCIAL Address: [facility] [address] [place], [place] MEDICARE [employer] [place] Member Subscriber Plan / Payer (Ef fective 2014-Present) Name:Hui Mott [place] Relation to Subscriber:Self Name:Hui Mott [place] Payer ID:[id number] Group ID:Not on file Type:COMMERCIAL Address: [facility] [address] [place], [place] Advance Directives For more information, please contact: [phone] * Full Code (Latest Code Status on File) Date Activated Date Inactivated Comments 06/29/2024 1:58 PM 06/29/2024 9:12 PM * Full Code Date Activated Date Inactivated Comments 01/15/2022 8:39 AM 01/15/2022 2:41 PM Care Teams [employer] Dean Relationship Specialty Start Date End Date Devyn Fry MD [address] [place] [address] PCP - General Family Medicine 04/11/24
--- OUTSIDE RECORDS SUMMARY | 2024-08-13 17:54 | XMS_ITS | Referral Summary ---
Author Organization [facility] Address [address] [facility] [place] [address] Care Team Providers Care Paper Box Maker Name Role Phone Devyn Fry MD Primary Care Provider [phone] Source Comments [facility],non-owned Affiliates and Associated Physician Practices is amultiple site organization consisting of ambulatory clinics and hospital sitesin [place], [place], [place] and [place]. This disclosure is being madepursuant to the Care Everywhere program and may not contain all information available regarding this patient. Last updated 18.[facility] Allergies Active Allergy Reactions Criticality Noted Date [...] Comments Blood Pressure 100/60 08/29/2023 11:38 AM THERAPEUTIC RIDING INSTRUCTOR Pulse 64 08/29/2023 11:38 AM THERAPEUTIC RIDING INSTRUCTOR Temperature 36.7 C (98 F) 05/01/2020 6:46 PM THERAPEUTIC RIDING INSTRUCTOR Respiratory Rate 14 08/29/2023 11:38 AM THERAPEUTIC RIDING INSTRUCTOR Oxygen Saturation 95% 08/29/2023 11:38 AM THERAPEUTIC RIDING INSTRUCTOR Inhaled Oxygen Concentration - - Weight 74.4 kg (164 lb) 08/29/2023 11:38 AM THERAPEUTIC RIDING INSTRUCTOR Height 160 cm (5' 3 ) 08/29/2023 11:38 AM THERAPEUTIC RIDING INSTRUCTOR Body Mass Index 29.05 08/29/2023 11:38 AM THERAPEUTIC RIDING INSTRUCTOR Plan of Treatment Not on file Care Teams Paper Box Maker Relationship Specialty Start Date End Date Devyn Fry MD [address] [place] [address] PCP - General Family Medicine 06/14/23
--- OUTSIDE RECORDS SUMMARY | 2024-08-13 17:54 | XMS_ITS | Clinical Summary ---
Author Organization [facility] Address [address] [place] [address] Phone Care Team Providers Care Destaticizer Feeder Name Role Phone Ramos Vera MD Primary Care Provider [phone] Allergies Active Allergy Reactions Criticality Noted Date [...] STL ABSTRACTION Provider, Abstract 05/29/2024 Orders Only [facility] Oncology and Hematology - [place] [address] [place] [address] Alvin Cueto MD 05/22/2024 Orders Only [facility] Oncology and Hematology - [place] [address] [place] [address] Alvin Cueto MD 05/21/2024 Telephone [facility] Oncology and Hematology - [place] [address] [place] [address] Alvin Cueto MD Lab Results 05/18/2024 Orders Only [facility] Oncology and Hematology - Sreek[place] [address] [place] [address] Alvin Cueto MD 05/15/2024 Telephone [facility] Oncology and Hematology - Sreek[place] [address] [place] [address] Alvin Cueto MD Breathing Problem from Last [...] cm (5' 3 ) 05/25/2022 1:47 PM CASINO FLOOR SUPERVISOR Body Mass Index 29.58 05/25/2022 1:47 PM CASINO FLOOR SUPERVISOR Plan of Treatment Upcoming Encounters Date Type Department Care Team (Late st Contact Info) Description 08/16/2024 11:00 AM CASINO FLOOR SUPERVISOR Office Visit [facility] Oncology and Hematology - [place] [address] [place] [address] [address] [place] [address] Alvin Cueto MD [address] [facility] [address] [place] [address] Health Maintenance Due Date Last [...] PROTEIN ELECTROPHORESIS, CSF Routine 05/23/2024 8:38 AM CASINO FLOOR SUPERVISOR KAPPA/LAMBDA LIGHT CHAINS Routine 2023 3:27 PM CASINO FLOOR SUPERVISOR COMPREHENSIVE METABOLIC PANEL Routine 05/16/2024 2:10 PM CASINO FLOOR SUPERVISOR CBC WITH DIFFERENTIAL Routine 05/16/2024 12:14 PM CASINO FLOOR SUPERVISOR from Last 3 Months Results * PROTEIN ELECTROPHORESIS, CSF (05/23/2024 8:38 AM CASINO FLOOR SUPERVISOR) Cerebrospinal fluid CEREBROSPINAL FLUID / Unknown us Alvin Cueto MD BODY FLUIDS AND STOOLS Final Re sult * KAPPA/LAMBDA, FREE LIGHT CHAINS (05/22/2024 3:27 PM CASINO FLOOR SUPERVISOR) Blood us Alvin Cueto MD CHEMISTRY ORDERABLES Final Resu lt * COMPREHENSIVE METABOLIC PANEL (05/16/2024 2:10 PM CASINO FLOOR SUPERVISOR) Blood us Alvin Cueto MD CHEMISTRY ORDERABLES Final Resu lt * CBC WITH DIFFERENTIAL (05/16/2024 12:14 PM CASINO FLOOR SUPERVISOR) Blood us Alvin Cueto MD HEMATOLOGY ORDERABLES Final Res ult from Last 3 Months Insurance MEDICARE PART A AND B [employer] [facility] Medicare Part D MEDICARE PART A AND B [employer]ANS [place] SUPP Care Teams Destaticizer Feeder Relationship Specialty Start Date End Date Ramos Vera MD [address] [place] [address] PCP - General Family Practice 09/29/20
--- OUTSIDE RECORDS SUMMARY | 2024-08-13 17:54 | XMS_ITS | Patient Health Record ---
Author Organization [facility] Address [address] [place] [address] YENNY Najera [address] Care Team Providers Care Director Imaging Name Role Phone DARRICK BAZAN ASHLEY Unavailable [...] (G57.91) Active confirmed Mononeuropathy of lower limb (173983663) Problem Spondylolisthesis , lumbar region (M43.16) Active confirmed Acquired spondylolisthesis (380883106) Problem Spondylosis without myelopathy or radiculopathy, lumbar region (M47.816) Active confirmed Lumbosacral spondylosis without myelopathy (19861241) Problem Spondylosis without myelopathy or radiculopathy, lumbosacral region (M47.817) Active confirmed Lumbosacral spondylosis without myelopathy (disorder) (68979468) Problem Other intervertebral disc degeneration, lumbar region (M51.36) Active confirmed Degeneration of lumbar intervertebral disc (26016665) Problem Radiculopathy, lumbar region (M54.16) Active confirmed Lumbar radiculopathy (468800095) Problem Radiculopathy, lumbosacral region (M54.17) Active confirmed Lumbosacral radiculopathy (1607871) Problem Sciatica, unspecified side (M54.30) Active confirmed Sciatica (73240791) Problem Sciatica, right side (M54.31) Active confirmed Right side sci atica (648734492119134) Problem Sciatica, left side (M54.32) Active confirmed Left side scia eleonora (032691407555108) Problem Osseous stenosis of neural canal of lumbar region (M99.33) Active confirmed Spinal stenosis of lumbar region (07235357) Problem Osseous and subluxation stenosis of intervertebral foramina of lumbar region (M99.63) Active confirmed Spinal stenosis of lumbar region (20565789) Problem long term care phlebotomist (current) use of anticoagulants (Z79.01) Active confirmed Long-term curre nt use of anticoagulant (231249862) Problem Spinal stenosis, lumbar region with neurogenic 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) Active confirmed Neurogenic claudication (728955645) PLAN OF TREATMENT No Information Insurance Providers Payer Name Payer Address Payer Phone Subscriber Number Group Number Insured Name Patient Relationship to Insured Coverage Start Date Coverage End Date Medicare [place] [address] [address] [place] [phone] [id number] JAYCE MOTT Self - patient is the insured [employer] [address] [place] [phone] [id number] JAYCE MOTT Self - patient is the insured MEDICAL (GENERAL) HISTORY Medical History History ICD Code Fatty liver Bradycardia Sleep apnea [place] CAD Anemia Hypertension Shingles Gout TIA Colon Cancer - In Remission Surgical History Surgery Date(Month/Year) PTCA x2 2000 Cholecystectomy 2009 Hernia repair 2014
--- OUTSIDE RECORDS SUMMARY | 2024-08-13 17:54 | XMS_ITS | Clinical Summary ---
Author Organization [facility] Address [address] [facility] [place] [address] Care Team Providers Care Web Developer Name Role Phone Devyn Fry MD Primary Care Provider [phone] Source Comments [facility],non-owned Affiliates and Associated Physician Practices is amultiple site organization consisting of ambulatory clinics and hospital sitesin [place], [place], [place] and [place]. This disclosure is being madepursuant to the Care Everywhere program and may not contain all information available regarding this patient. Last updated 18.[facility] Allergies Active Allergy Reactions Criticality Noted Date [...] Comments Blood Pressure 100/60 08/29/2023 11:38 AM WOOD PROCESSING WORKER Pulse 64 08/29/2023 11:38 AM WOOD PROCESSING WORKER Temperature 36.7 C (98 F) 05/01/2020 6:46 PM WOOD PROCESSING WORKER Respiratory Rate 14 08/29/2023 11:38 AM WOOD PROCESSING WORKER Oxygen Saturation 95% 08/29/2023 11:38 AM WOOD PROCESSING WORKER Inhaled Oxygen Concentration - - Weight 74.4 kg (164 lb) 08/29/2023 11:38 AM WOOD PROCESSING WORKER Height 160 cm (5' 3 ) 08/29/2023 11:38 AM WOOD PROCESSING WORKER Body Mass Index 29.05 08/29/2023 11:38 AM WOOD PROCESSING WORKER Plan of Treatment Health Maintenance Due Date [...] age to complete this topic Care Teams Web Developer Relationship Specialty Start Date End Date Devyn Fry MD [address] [place] [address] PCP - General Family Medicine 06/14/23
--- OUTSIDE RECORDS SUMMARY | 2024-08-13 17:54 | XMS_ITS | Patient Health Summary ---
Author Organization [facility] Address [address] [place] [address] Care Team Providers Care Dialysis Technician Name Role Phone Devyn Fry MD Primary Care Provider [phone] Note from [facility],non-owned Affiliates and Associated Physician Practices is amultiple site organization consisting of ambulatory clinics and hospital sitesin [place] and [place]. This disclosure is being madepursuant to the Care Everywhere program and may not contain all information available regarding this patient. Last updated 18.[facility] Allergies * Ciprofloxacin(Vomiting) * Fenofibrate(Vomiting) * Ibuprofen(Vomiting) [...] Comments Blood Pressure 100/60 08/29/2023 11:38 AM FOOD ANALYST Pulse 64 08/29/2023 11:38 AM FOOD ANALYST Temperature 36.7 C (98 F) 05/01/2020 6:46 PM FOOD ANALYST Respiratory Rate 14 08/29/2023 11:38 AM FOOD ANALYST Oxygen Saturation 95% 08/29/2023 11:38 AM FOOD ANALYST Inhaled Oxygen Concentration - - Weight 74.4 kg (164 lb) 08/29/2023 11:38 AM FOOD ANALYST Height 160 cm (5' 3 ) 08/29/2023 11:38 AM FOOD ANALYST Body Mass Index 29.05 08/29/2023 11:38 AM FOOD ANALYST Procedures * EEG(Performed 08/02/2023) Performed for TGA [...] encounter Results * EEG (08/02/2023 8:15 PM FOOD ANALYST) Narrative [facility] - 08/02/2023 8:15 PM FOOD ANALYST Zacarias Rubi MD 08/02/2023 8:21 PM Electroencephalogram [...] absent. FIRDA is present on occasion.. The hall monitor indicates a pulse at 60 beats [...] ANGIO BRAIN AND NECK (08/02/2023 1:48 PM FOOD ANALYST) Anatomical Region Laterality Modality Head Computed Tomogra phy 08/02/2023 2:23 PM FOOD ANALYST Impressions 08/02/2023 3:04 PM FOOD ANALYST IMPRESSION: 1. No large vessel occlusion around the lumbee of [place]. 2. No significant vascular stenosis. 3. 3 mm size right upper lobe lung nodule. Code: SSM-LungNodule Edited by Katherine Jade on 08/02/2023 2:49 PM > Interpreting Provider: Katty Noland MD on 08/02/2023 3:04 PM Narrative 08/02/2023 3:04 PM FOOD ANALYST PROCEDURE: CT ANGIO BRAIN AND NECK, DATE/TIME OF EXAM: 08/02/2023 1:49 PM, LOCATION [facility] INDICATION: G45.4: Transient global amnesia ADDITIONAL CLINICAL [...] aneurysmal dilatation, or branch occlusion about the lumbee of [place]. The region of the anterior communicating artery is unremarkable. The distal vertebral arteries, vertebrobasilar junction, and basilar artery are normal in appearance. The posterior cerebral arteries are normal in appearance without high-grade stenosis, aneurysmal dilatation, or branch occlusion about the lumbee of [place]. The posterior communicating arteries are [...] NECK, DATE/TIME OF EXAM: 08/02/2023 1:49PM, LOCATION [facility] INDICATION: G45.4: Transient global amnesia ADDITIONAL CLINICAL [...] aneurysmal dilatation, or branch occlusion about the lumbee of [place]. The region of the anterior communicating artery is unremarkable. The distal vertebral arteries, vertebrobasilar junction, and basilarartery are normal in appearance. The posterior cerebral arteries are normal in appearance without high-grade stenosis, aneurysmal dilatation, or branch occlusion about the lumbee of [place]. The posterior communicating arteries are [...] 1. No large vessel occlusion around the lumbee of [place]. 2. No significant vascular stenosis. 3. 3 mm size right upper lobe lung nodule. Code: SSM-LungNodule Edited by Katherine Jade on 08/02/2023 2:49 PM > Interpreting Provider: Katty Noland MD on 08/02/2023 3:04 PM Zacarias Rubi MD CT ORDERABLES * (ABNORMAL) CREATININE - POCT INTERFACED (08/02/2023 1:43 PM FOOD ANALYST) [facility] Creatinine POCT 1.51(H) 0.70 - 1.20 mg/dL 08/02/2023 2:06 PM FOOD ANALYST [facility] eGFR 36(L) >=90 mL/min/1.7 3 m2 08/02/2023 2:06 PM FOOD ANALYST [facility] Blood BLOOD SPECIMEN / Unknown 08/02/2023 1:43 PM FOOD ANALYST 08/02/2023 2:06 PM FOOD ANALYST Zacarias Rubi MD LAB - POINT OF CARE ORDERABLES [facility] [address] [place] [address] * MRI BRAIN WO CONTRAST (08/02/2023 12:00 PM FOOD ANALYST) Anatomical Region Laterality Modality Head Magnetic Resonan ce 08/02/2023 12:0 4 PM FOOD ANALYST Impressions 08/02/2023 12:08 PM FOOD ANALYST IMPRESSION: No acute infarct. Changes related to chronic small vessel ischemic disease and cerebral atrophy. > Interpreting Provider: Katty Noland MD on 08/02/2023 12:08 PM Narrative 08/02/2023 12:08 PM FOOD ANALYST PROCEDURE: MRI BRAIN WO CONTRAST, DATE/TIME OF EXAM: 08/02/2023 12:00 PM, LOCATION [facility] INDICATION: G45.4: Transient global amnesia ADDITIONAL CLINICAL [...] CONTRAST, DATE/TIME OF EXAM: 08/02/2023 12:00PM, LOCATION [facility] INDICATION: G45.4: Transient global amnesia ADDITIONAL CLINICAL [...] * CARDIAC EKG ORDER (05/02/2020 8:29 AM FOOD ANALYST) Narrative 05/02/2020 8:29 AM FOOD ANALYST Ordered by an unspecified provider. Scanned Document CARDIAC SERVICES ORD ERABLES * CT LUMBAR SPINE WO CONTRAST - T/L-spine trauma, Spine fracture (05/01/2020 4:49 PM FOOD ANALYST) Anatomical Region Laterality Modality Spine Computed Tomogra phy 05/02/2020 7:15 AM FOOD ANALYST Impressions 05/02/2020 8:36 AM FOOD ANALYST IMPRESSION: 1.No acute intracranial abnormality. 2.Evaluation of [...] at L4-5. Dictated by Hany Goodrich MD (Humane Officer) I, Dr. FLORINDA CONDE have personally reviewed and interpreted this examination/study. This report was electronically signed by FLORINDA CONDE on 05/02/2020 8:36 AM . Narrative 05/02/2020 8:36 AM FOOD ANALYST EXAMINATION: Computed tomography (CT) of the head [...] at L4-5. Dictated by Hany Goodrich MD (Humane Officer) Esau, Dr. FLORINDA CONDE have personally reviewed and interpreted this examination/study. This report was electronically signed by FLORINDA CONDE on 05/02/2020 8:36AM . Yunior Haynes MD CT ORDERABLES * CT THORACIC SPINE WO CONTRAST - T/L-spine trauma, spine fracture (05/01/2020 4:49 PM FOOD ANALYST) Anatomical Region Laterality Modality Spine Computed Tomogra phy 05/02/2020 7:15 AM FOOD ANALYST Impressions 05/02/2020 8:36 AM FOOD ANALYST IMPRESSION: 1.No acute intracranial abnormality. 2.Evaluation of [...] at L4-5. Dictated by Hany Goodrich MD (Humane Officer) Dr. FLORINDA Cifuentes have personally reviewed and interpreted this examination/study. This report was electronically signed by FLORINDA CONDE on 05/02/2020 8:36 AM . Narrative 05/02/2020 8:36 AM FOOD ANALYST EXAMINATION: Computed tomography (CT) of the head [...] at L4-5. Dictated by Hany Goodrich MD (Humane Officer) I, Dr. FLORINDA CONDE have personally reviewed and interpreted this examination/study. This report was electronically signed by FLORINDA CONDE on 05/02/2020 8:36AM . Yunior Haynes MD CT ORDERABLES * CT CERVICAL SPINE WO CONTRAST - C-Spine Trauma, Spine fracture (05/01/2020 4:49 PM FOOD ANALYST) Anatomical Region Laterality Modality Spine Computed Tomogra phy 05/02/2020 7:15 AM FOOD ANALYST Impressions 05/02/2020 8:36 AM FOOD ANALYST IMPRESSION: 1.No acute intracranial abnormality. 2.Evaluation of [...] at L4-5. Dictated by Hany Goodrich MD (Humane Officer) I, Dr. FLORINDA CONDE have personally reviewed and interpreted this examination/study. This report was electronically signed by FLORINDA CONDE on 05/02/2020 8:36 AM . Narrative 05/02/2020 8:36 AM FOOD ANALYST EXAMINATION: Computed tomography (CT) of the head [...] at L4-5. Dictated by Hany Goodrich MD (Humane Officer) Dr. FLORINDA Cifuentes have personally reviewed and interpreted this examination/study. This report was electronically signed by FLORINDA CONDE on 05/02/2020 8:36AM . Yunior Haynes MD CT ORDERABLES * CT CHEST WO CONTRAST (05/01/2020 4:49 PM FOOD ANALYST) Anatomical Region Laterality Modality Chest Computed Tomogra phy 05/01/2020 5:15 PM FOOD ANALYST Impressions 05/02/2020 8:02 AM FOOD ANALYST Impression: 1. Minimal left basilar opacities may [...] if available. Dictated by Ace Rodriguez MD (chairman president and chief executive officer). I, Dr. E. ISIN AKDUMAN, M.D. have personally reviewed and interpreted this examination/study. This report was electronically signed by Renetta CANCHOLA M.D. on 05/02/2020 8:02 AM . Narrative 05/02/2020 8:02 AM FOOD ANALYST Procedure Information DATE: 05/01/2020 4:52 PM EXAMINATION: [...] if available. Dictated by Ace Rodriguez MD (chairman president and chief executive officer). I, Dr. Renetta CANCHOLA M.D. have personally reviewed and interpretedthis examination/study. This report was electronically signed by Renetta CANCHOLA M.D. on 05/02/2020 8:02 AM . Yunior Haynes MD CT ORDERABLES * CT FACIAL BONES WO CONTRAST - Facial trauma, fx suspected, blunt (05/01/2020 4:49 PM FOOD ANALYST) Anatomical Region Laterality Modality Head Computed Tomogra phy 05/02/2020 7:15 AM FOOD ANALYST Impressions 05/02/2020 8:36 AM FOOD ANALYST IMPRESSION: 1.No acute intracranial abnormality. 2.Evaluation of [...] at L4-5. Dictated by Hany Goodrich MD (Humane Officer) I, Dr. FLORINDA CONDE have personally reviewed and interpreted this examination/study. This report was electronically signed by FLORINDA CONDE on 05/02/2020 8:36 AM . Narrative 05/02/2020 8:36 AM FOOD ANALYST EXAMINATION: Computed tomography (CT) of the head [...] at L4-5. Dictated by Hany Goodrich MD (Humane Officer) Esau, Dr. FLORINDA CONDE have personally reviewed and interpreted this examination/study. This report was electronically signed by FLORINDA CONDE on 05/02/2020 8:36AM . Yunior Haynes MD CT ORDERABLES * CT HEAD WO CONTRAST - Head Trauma, CSF leak, mental status changes (05/01/2020 4:49 PM FOOD ANALYST) Anatomical Region Laterality Modality Head Computed Tomogra phy 05/02/2020 7:15 AM FOOD ANALYST Impressions 05/02/2020 8:36 AM FOOD ANALYST IMPRESSION: 1.No acute intracranial abnormality. 2.Evaluation of [...] at L4-5. Dictated by Hany Goodrich MD (Humane Officer) Dr. FLORINDA Cifuentes have personally reviewed and interpreted this examination/study. This report was electronically signed by FLORINDA CONDE on 05/02/2020 8:36 AM . Narrative 05/02/2020 8:36 AM FOOD ANALYST EXAMINATION: Computed tomography (CT) of the head [...] at L4-5. Dictated by Hany Goodrich MD (Humane Officer) I, Dr. FLORINDA CONDE have personally reviewed and interpreted this examination/study. This report was electronically signed by FLORINDA CONDE on 05/02/2020 8:36AM . Yunior Haynes MD CT ORDERABLES * XR PELVIS 1 OR 2VW (05/01/2020 3:47 PM FOOD ANALYST) Anatomical Region Laterality Modality Pelvis Radiographic Clair ging 05/01/2020 3:51 PM FOOD ANALYST Impressions 05/01/2020 3:52 PM FOOD ANALYST IMPRESSION: No acute findings. This report was electronically signed by FE JIMENEZ on 05/01/2020 3:52 PM . Narrative 05/01/2020 3:52 PM FOOD ANALYST EXAMINATION: XR PELVIS 1 OR 2VW HISTORY: [...] XR KNEE RIGHT 3VW (05/01/2020 3:47 PM FOOD ANALYST) Anatomical Region Laterality Modality Lower Extremity Radiographic Clair ging 05/01/2020 3:52 PM FOOD ANALYST Impressions 05/01/2020 3:54 PM FOOD ANALYST IMPRESSION: Suboptimal lateral imaging, with inability to exclude joint effusion or alignment alteration on the lateral view. No fracture appreciated. This report was electronically signed by FE JIMENEZ on 05/01/2020 3:54 PM . Narrative 05/01/2020 3:54 PM FOOD ANALYST EXAMINATION: XR KNEE RIGHT 3VW HISTORY: W19.XXXA: [...] FE JIMENEZ on 05/01/2020 3:54 PM . Yunior Haynes MD DIAGNOSTIC IMAGING O RDERABLES * (ABNORMAL) CBC W AUTO DIFFERENTIAL (05/01/2020 3:18 PM FOOD ANALYST) WBC 6.0 3.5 - 10.5 10 3/uL 05/01/2020 3:29 PM [facility] RBC 3.72(L) 3.90 - 5.00 10 6/uL 05/01/2020 3:29 PM [facility] Hemoglobin 11.2(L) 12.0 - 15.5 g/dL 05/01/2020 3:29 PM [facility] Hematocrit 35.0 35.0 - 45.0 % 05/01/2020 3:29 PM [facility] MCV 94.1 81.0 - 97.0 fL 05/01/2020 3:29 PM [facility] MCH 30.1 28.0 - 34.0 pg 05/01/2020 3:29 PM [facility] MCHC 32.0 32.0 - 36.0 g/dL 05/01/2020 3:29 PM [facility] Platelet Count 206 150 - 400 10 3/uL 05/01/2020 3:29 PM [facility] RDW-SD 44.3 36.0 - 50.0 fL 05/01/2020 3:29 PM [facility] RDW-CV 12.9 11.2 - 14.8 % 05/01/2020 3:29 PM [facility] MPV 10.0 9.3 - 12.8 fL 05/01/2020 3:29 PM [facility] nRBC Absolute 0.00 0 10 3/uL 05/01/2020 3:29 PM [facility] nRBC Auto 0.0 0 /100 WBC 05/01/2020 3:29 PM [facility] Neutrophils % 61.0 35.0 - 70.0 % 05/01/2020 3:29 PM [facility] Lymphocytes % 26.1 19.7 - 55.1 % 05/01/2020 3:29 PM [facility] Monocytes % 9.5 3.0 - 15.0 % 05/01/2020 3:29 PM [facility] Eosinophils % 2.2 0.0 - 6.0 % 05/01/2020 3:29 PM [facility] Basophil % 1.0 0.0 - 1.5 % 05/01/2020 3:29 PM [facility] Neutrophils Absolute 3.7 1.6 - 7.0 10 3/uL 05/01/2020 3:29 PM [facility] Lymphocyte Absolute 1.6 0.8 - 2.9 10 3/uL 05/01/2020 3:29 PM [facility] Monocytes Absolute 0.57 0.14 - 0.66 10 3/uL 05/01/2020 3:29 PM [facility] Eosinophils Absolute 0.13 0.00 - 0.45 10 3/uL 05/01/2020 3:29 PM [facility] Basophils Absolute 0.06 0.00 - 0.06 10 3/uL 05/01/2020 3:29 PM [facility] Immature Granulocytes % 0.2 0.0 - 1.0 % 05/01/2020 3:29 PM [facility] Blood BLOOD SPECIMEN / Unknown Venipuncture / Unknown 05/01/2020 3:18 PM FOOD ANALYST 05/01/2020 3:23 PM FOOD ANALYST Yunior Haynes MD LAB - HEMATOLOGY [facility] [address] [place] [address], [facility] [phone] * (ABNORMAL) BASIC METABOLIC PANEL (CALCIUM TOTAL) (05/01/2020 3:18 PM FOOD ANALYST) BUN 47(H) 7 - 26 mg/dL 05/01/2020 3:50 PM [facility] Creatinine 1.9(H) 0.6 - 1.2 mg/dL 05/01/2020 3:50 PM [facility] Sodium 141 136 - 145 mmol/L 05/01/2020 3:50 PM [facility] Potassium 3.9 3.5 - 4.5 mmol/L 05/01/2020 3:50 PM [facility] Chloride 108(H) 98 - 107 mmol/L 05/01/2020 3:50 PM [facility] CO2 23 22 - 29 mmol/L 05/01/2020 3:50 PM [facility] Glucose 89 70 - 115 mg/dL 05/01/2020 3:50 PM [facility] Calcium 10.3(H) 8.4 - 10.2 mg/dL 05/01/2020 3:50 PM [facility] Anion Gap 14 8 - 18 05/01/2020 3:50 PM [facility] BUN/Creatinine Ratio 25(H) 7 - 23 05/01/2020 3:50 PM [facility] Osmolality Calculated 304(H) 270 - 300 mOsm/kg 05/01/2020 3:50 PM [facility] eGFR 26(L) >60 mL/min/1.7 3 m2 05/01/2020 3:50 PM [facility] Blood BLOOD SPECIMEN / Unknown Venipuncture / Unknown 05/01/2020 3:18 PM FOOD ANALYST 05/01/2020 3:23 PM FOOD ANALYST Yunior Haynes MD LAB - CHEMISTRY [facility]ER[facility] SINCLAIR [address] [address], [facility] [phone] * ALCOHOL ETHYL BLOOD (05/01/2020 3:18 PM FOOD ANALYST) Interpretation Ethanol None Detected None Detected mg/dL 05/01/2020 3:50 PM FOOD ANALYST [facility] Comment:Ethanol levels less than 10 mg/dL are resulted as None detected . Blood BLOOD SPECIMEN / Unknown Venipuncture / Unknown 05/01/2020 3:18 PM FOOD ANALYST 05/01/2020 3:23 PM FOOD ANALYST Yunior Haynes MD LAB - CHEMISTRY [facility] SIN[facility]IR Performing Organization Address [facility] Co de Phone Number [address] [address], [facility] [phone] * EKG 12-LEAD (05/01/2020 3:05 PM FOOD ANALYST) Ventricular Rate 60 BPM [facility]USE Atrial Rate 60 BPM [facility] MUSE P-R Interval 166 ms [facility] M[facility] QRS Duration ms 80 ms [facility] MUSE Q-T Interval ms 442 ms [facility] MUSE QTC Calculation (Bezet) 442 ms [facility] MUSE Calculated P [place] 61 degrees SL MUSE Calculated R [place] 2 degrees [facility] MUSE Calculated T [place] 59 degrees [facility] MUSE Interpretation EKG NORMAL SINUS RHYTHM LOW VOLTAGE QRS POSSIBLE LATERAL INFARCT , AGE UNDETERMINED CANNOT RULE OUT INFERIOR INFARCT (CITED ON OR BEFORE 12-JUL-2000) ABNORMAL ECG WHEN COMPARED WITH ECG OF 13-JUL-2000 05:49, BORDERLINE CRITERIA FOR LATERAL INFARCT ARE NOW PRESENT Confirmed by fellow Jacek Finley ([id number]) on 05/02/2020 2:47:29 PM Confirmed by Nader Yeager ([id number]) on 05/20/2020 2:25:52 PM [facility] MUSE 05/01/2020 3:05 PM FOOD ANALYST 05/20/2020 2:25 PM FOOD ANALYST Yunior Haynes MD ECG ORDERABLES Performing Organization Address City/[facility]/ZIP Co de Phone Number [facility] MUSE Care Teams Dialysis Technician Relationship Specialty Start Date End Date Devyn Fry MD [address] [place] [address] PCP - General Family Medicine 06/14/23
--- OUTSIDE RECORDS SUMMARY | 2024-08-13 17:54 | XMS_ITS | Patient Health Record ---
Author Organization [facility] Address [address] [place] [address] Care Team Providers Care Engineering Lab Technician Name Role Phone Ramos Vera MD Primary Care Provider Unavailab le Allergies Allergen (clinical drug ingredient) Drug/Non Drug Allergy documented on EMR Reaction Allergy Type Onset Date Status fenofibrate Fenofibrate Unknown Drug Allergy Act janene Medicinal quinolone and acting as antibacterial agent (FN) Quinolones Unknown Drug Allergy Active ciprofloxacin Ciprofloxacin Unknown Drug Allergy Active ibuprofen Ibuprofen Unknown Drug Allergy Active Penicillin Unknown Drug Allergy Active Reason For Referral No Information Medications Medication SIG (Take, Route, Frequency, Duration) Notes Start Date End Date Status Plavix Active Metoprolol Succinate Active Valsartan Active Lasix Active OTC/Vitamins Melatonin, ASA, Potassium, Vit B12, Centrum Silver, Ortho Biotic, Active Vancomycin HCl Activ e Vancomycin HCl 125 MG 1 capsule Orally 4 times daily for 14 days 12/11/2021 Active Omeprazole 40 MG 1 capsule 30 minutes before morning meal Orally Once a day Active Immunizations Vaccine Route Administration Date Status Comme nts Influenza Vaccination Unknown 08/12/2021 Administered Pneumococcal conjugate PCV 13 Unknown 12/25/2020 Admini stered Pneumococcal polysaccharide PPV23 Unknown 07/15/2021 Ad ministered Social History Tobacco Use: Social History Observation Description Date Details (start date - stop date) Former Smoker NA - NA Tobacco Use/Smoking Question Answer Notes Are you a former smoker Problems Problem Type SNOMED Code ICD Code Onset Dates Problem Status W/U Status Risk Notes Problem [id number] History of colon cancer (Z85.038) Active confirmed Plan Of Treatment Pending Test Test Name Order Date EUS 11/26/2021 Insurance Providers Payer Name Payer Address Payer Phone Subscriber Number Group Number Insured Name Patient Relationship to Insured Coverage Start Date Coverage End Date Medicare E2 [address] [address] [place] [address] [id number] Hui Dominguez Self - patient is the insured Physician [place] [address] [place] [phone] [id number] Angelica Hiu Self - patient is the insured Medical (General) History Medical History History ICD Code C. Diff. Colitis Pancreatic Cyst Gastroesophageal Reflux Disease (GERD) Hiatal Hernia Colonic Polyp Colon Cancer Diverticulitis Stroke Heart Disease/Stents Anemia Surgical History Surgery Date(Month/Year) Colonoscopy (Dr. Ace Carmichael) 2020 Colon Cancer 2019 Hernia x2 2015 Cholecystectomy 2000 Appendectomy 2000 Heart Stents (2) 1999 Breast Biopsy 1996 Hysterectomy 1975
--- OUTSIDE RECORDS SUMMARY | 2024-08-13 17:54 | XMS_ITS | Continuity of Care Document ---
Author Organization [facility] Address [address] [place] [address] Phone Care Team Providers Care Dog Licenser Name Role Phone Frandy Barrera DO Unavailable Unavailable Advance Directives Directive Yes / No Effective Date File Name No Information Encounters Encounter Description Practice Location Reason(s) For Visit Diagnoses Date Provider Providers Copied on Encounter [facility], [address], [place], [place], [id number], [place] tel:[phone] No Information Bruce Tabares. [address], [place], [address], [place]. tel: [phone] Family History Family Member Type Diagnosis Age [...]
--- OUTSIDE RECORDS SUMMARY | 2024-08-13 17:54 | XMS_ITS | Clinical Summary ---
Author Organization [facility] Address [facility] [place] [address] Care Team Providers Care Base Filler Name Role Phone Devyn Fry MD Primary Care Provider [phone] Allergies Active Allergy Reactions Criticality Noted Date [...] 07/02/19 24 Active neomycin-polymy lavonne-dexamethaso ne (MAXITROL) 3.5-32975-3.1 Ointment APPLY THIN RIBBON ON UPPER AND [...] Department Care Team Description 06/04/2024 8:28 AM DRILLING CONTRACTOR - 06/04/2024 11:59 PM DRILLING CONTRACTOR Hospital Encounter [facility] [place] [address] MD Discharge Disposition: Home or Self Care (Routine Discharge) 06/04/2024 7:20 AM DRILLING CONTRACTOR Office Visit [facility] Multispecialty Care - [facility] [address], [address] [place] [id number] MD Establish Care (Has memory [...] Comments Blood Pressure 109/70 06/04/2024 7:38 AM DRILLING CONTRACTOR Pulse 75 06/04/2024 7:38 AM DRILLING CONTRACTOR Temperature - - Respiratory Rate - - Oxygen Saturation 98% 06/04/2024 7:38 AM DRILLING CONTRACTOR Inhaled Oxygen Concentration - - Weight 75.8 kg (167 lb) 06/04/2024 7:38 AM DRILLING CONTRACTOR Height 160 cm (5' 3 ) 06/04/2024 7:38 AM DRILLING CONTRACTOR Body Mass Index 29.58 06/04/2024 7:38 AM DRILLING CONTRACTOR Plan of Treatment Health Maintenance Due Date Last Done Comments Colorectal Cancer Screening Colonoscopy (10 Years) 1949 Hepatitis C 1967 DTaP, Tdap and Td Vaccines (1 - Tdap) 1968 Mammogram Screening 1989 Annual Medicare Wellness Visit 2014 Dexa Scan (General) 2014 PHQ-2 (Physician [place]) 06/27/2024 06/04/2024 Zoster Vaccines Completed 12/29/2022, 10/27/2022 [...] CBC W/DIFF AUTOMATED Routine 06/04/2024 8:37 AM DRILLING CONTRACTOR Memory loss COMPREHENSIVE METABOLIC PANEL Routine 06/04/2024 8:37 AM DRILLING CONTRACTOR Memory loss HOMOCYSTEINE Routine 06/04/2024 8:37 AM DRILLING CONTRACTOR Memory loss METHYLMALONIC ACID Routine 06/04/2024 8: 37 AM DRILLING CONTRACTOR Memory loss TSH W/REFLEX Routine 06/04/2024 8:37 AM DRILLING CONTRACTOR Memory loss VITAMIN B12 / FOLATE Routine 06/04/2024 8:37 AM DRILLING CONTRACTOR Memory loss from Last 3 Months Results * (ABNORMAL) VITAMIN B12 / FOLATE (06/04/2024 8:37 AM DRILLING CONTRACTOR) VITAMIN B12 S/P/B 554 254 - 1,320 PG/ML 06/04/2024 12:13 PM DRILLING CONTRACTOR [facility] FOLATE 71.1(H) 3.1 - 17.5 NG/ML 06/04/2024 12:13 PM DRILLING CONTRACTOR [facility] 06/04/2024 8:37 AM DRILLING CONTRACTOR Jessi Street MD LABORATORY Final Re sult Performing Organization Address City/[facility]/ZIP Co de Phone Number [facility] [address] [place] [address], [place] [phone] * TSH W/REFLEX (06/04/2024 8:37 AM DRILLING CONTRACTOR) Pathologist [facility] TSH 3.110 0.358 - 3.74 uIU/ML 06/04/2024 9:33 AM DRILLING CONTRACTOR [facility] Comment: HIGH DOSES OF BIOTIN MAY INTERFERE WITH THIS TEST RESULT. CORRELATION TO CLINICAL HISTORY AND PRESENTATION RECOMMENDED. FREE T4 NOT INDICATED 06/04/2024 8:37 AM DRILLING CONTRACTOR Jessi Street MD LABORATORY Final Re sult [facility] [address] [place] [address], [place] [phone] * METHYLMALONIC ACID (06/04/2024 8:37 AM DRILLING CONTRACTOR) METHYLMALONIC ACID 279 69 - 390 nmol/L 06/07/2024 7:59 AM DRILLING CONTRACTOR [facility] CR Comment: Serum methylmalonic acid (MMA) [...] neural tube defects and intrauterine growth restriction. [facility] utilized Multi-Modal Decomposition (MMD) analysis to establish first and second trimester- specific MMA reference intervals in , as given below: MMA, First trimester (<13 wks gestation): 58-167 nmol/L MMA, Second trimester (13-23 wks gestation): 63-241 nmol/L This test was developed and its analytical performance characteristics have been determined by [employer]. It has not been cleared or approved by the FDA. This assay has been validated pursuant to the CLIA regulations and is used for clinical purposes. Test Performed by [facility], [facility], [address] [place] [address] Paul Schrader M.D., Ph.D., Director of Laboratories , CLIA [id number] 06/04/2024 8:37 AM DRILLING CONTRACTOR Jessi Street MD LABORATORY Final Re sult [facility] [address] , * (ABNORMAL) COMPREHENSIVE METABOLIC PANEL (06/04/2024 8:37 AM DRILLING CONTRACTOR) GLUCOSE 114(H) 70 - 99 MG/DL 06/04/2024 9:33 AM DRILLING CONTRACTOR [facility] BUN 45(H) 7 - 18 MG/DL 06/04/2024 9:33 AM DRILLING CONTRACTOR [facility] CREATININE S/P/B 1.79(H) 0.55 - 1.02 MG/DL 06/04/2024 9:[address] [facility] SODIUM S/P/B 140 136 - 145 MMOL/L 06/04/2024 9:[address] [facility] POTASSIUM S/P/B 3.5 3.5 - 5.1 MMOL/L 06/04/2024 9:[address] [facility] CHLORIDE S/P/B 113 97 - 115 MMOL/L 06/04/2024 9:[address] [facility] CO2 22.1 21 - 32 MMOL/L 06/04/2024 9:[address] [facility] CALCIUM S/P/B 10.5(H) 8.5 - 10.1 MG/DL 06/04/2024 9:[address] [facility] BILIRUBIN TOTAL S/P/B 0.4 0.2 - 1.2 MG/DL 06/04/2024 9:[address] [facility] Comment: THIS ASSAY IS NOT RECOMMENDED FOR PATIENTS UNDERGOING TREATMENT WITH ELTROMBOPAG DUE TO THE POTENTIAL FOR FALSELY ELEVATED RESULTS. TOTAL PROTEIN S/P/B 7.2 6.4 - 8.2 G/DL 06/04/2024 9:[address] [facility] ALBUMIN S/P/B 3.7 3.4 - 5.0 G/DL 06/04/2024 9:[address] [facility] AST 30 15 - 37 U/L 06/04/2024 9:[address] [facility] ALT 21 14 - 55 U/L 06/04/2024 9:[address] [facility] ALKALINE PHOSPHATASE S/P/B 105 50 - 136 U/L 06/04/2024 9:[address] [facility] ANION GAP 4.9 2 - 10 MMOL/L 06/04/2024 9:[address] [facility] BUN CREATININE RATIO 25.1 6 - 26 06/04/2024 9:[address] [facility] A/G RATIO 1.1 1.0 - 2.0 RATIO 06/04/2024 9:[address] [facility] GFR ESTIMATE 29(L) >90 ML/MIN/1.7 3 M2 06/04/2024 9:[address] [facility] Comment: NOTE: eGFR is not calculated for patients <18 years of age or gender unknown. This is an estimated GFR calculation using the new CKD EPI creatinine equation without race and so does not require a correction factor for race. This estimated GFR should not be used for calculating drug doses. 06/04/2024 8:37 AM DRILLING CONTRACTOR us Jessi Street MD LABORATORY Final Re sult [facility] [address] [place] [address], * (ABNORMAL) CBC W/DIFF AUTOMATED (06/04/2024 8:37 AM DRILLING CONTRACTOR) WBC 8.61 4.5 - 11.0 x10'3/uL 06/04/2024 8:[address] [facility] RBC 3.78(L) 4.20 - 5.40 x10'6/uL 06/04/2024 8:[address] [facility] HGB 11.1(L) 12.0 - 16.0 G/DL 06/04/2024 8:[address] [facility] HCT 35.8(L) 38.0 - 48.0 % 06/04/2024 8:[address] [facility] MCV 94.7 81.0 - 99.0 FL 06/04/2024 8:[address] [facility] MCH 29.4 27.0 - 31.0 PG 06/04/2024 8:[address] [facility] MCHC 31.0(L) 32.0 - 36.0 G/DL 06/04/2024 8:[address] [facility] RDW 16.0(H) 11.5 - 14.5 % 06/04/2024 8:[address] [facility] PLT 249 130 - 400 x10'3/uL 06/04/2024 8:[address] [facility] MPV 9.7 9.3 - 12.2 FL 06/04/2024 8:[address] [facility] DIFFERENTIAL TYPE AUTOMATED DIFFERENTIAL 06/04/2024 8:[address] [facility] NEUTROPHILS % 74.5 % 06/04/2024 8:[address] [facility] LYMPHOCYTES % 16.4 % 06/04/2024 8:[address] [facility] MONOCYTES % 7.0 % 06/04/2024 8:[address] [facility] EOSINOPHILS 1.4 % 06/04/2024 8:[address] [facility] BASOPHILS 0.5 % 06/04/2024 8:[address] [facility] IMMATURE GRANS % 0.2 % 06/04/20 8:[address] [facility] ABS. NEUTROPHILS 6.42 1.80 - 7.70 x10'3/uL 06/04/2024 8:[address] [facility] ABS. LYMPHOCYTES 1.41 1.00 - 4.80 x10'3/uL 06/04/2024 8:[address] [facility] ABS. MONOCYTES 0.60 0.24 - 0.86 x10'3/uL 06/04/2024 8:[address] [facility] ABS. EOSINOPHILS 0.12 0.04 - 0.36 x10'3/uL 06/04/2024 8:50 AM DRILLING CONTRACTOR [facility] ABS. BASOPHILS 0.04 0.01 - 0.08 x10'3/uL 06/04/2024 8:50 AM DRILLING CONTRACTOR [facility] ABS. IMMATURE GRANULOCYTES 0.02 0.00 - 0.49 x10'3/uL 06/04/2024 8:50 AM DRILLING CONTRACTOR [facility] 06/04/2024 8:37 AM DRILLING CONTRACTOR Jessi Street MD LABORATORY Final Re sult Performing Organization Address [facility]/ZIP Co de Phone Number [facility] [address] [place] [address], [place] [phone] * (ABNORMAL) HOMOCYSTEINE (06/04/2024 8:37 AM DRILLING CONTRACTOR) HOMOCYSTEINE S/P/B 19.3(H) <10.4 umol/L 06/06/2024 10:45 PM DRILLING CONTRACTOR [facility] [facility] CR Comment: Homocysteine is increased by functional deficiency of folate or vitamin B12. Testing for methylmalonic acid differentiates between these deficiencies. Other causes of increased homocysteine include renal failure, folate antagonists such as methotrexate and phenytoin, and exposure to nitrous oxide. Garo Guillen, et al. [facility] [employer] Med. 1999;131(5):331-9. Test Performed by [facility], [facility], [address] [place] [address] Paul Schrader M.D., Ph.D., Director of Laboratories , [place] [id number] 06/04/2024 8:37 AM DRILLING CONTRACTOR us Jessi Street MD LABORATORY Final Re sult [facility] [address] [place] [address], [place] [phone] from Last 3 Months Insurance [employer] Care Teams Base Filler Relationship Specialty Start Date End Date Devyn Fry MD [address] [place] [address] PCP - General FAMILY PRACTICE 02/09/24
--- OUTSIDE RECORDS SUMMARY | 2024-08-13 17:55 | XMS_ITS | Clinical Summary ---
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) Take [...] artery disease of n ative artery of chefornak heart with stable angina pectoris 04/11/2024 Pancreatic cyst 12/22/2021 Overview (12/22/2021): Added automatically from request for surgery [id number] Encounters Date Type Department Care Team Description 08/07/2024 12:15 PM FILM TECHNICIAN Office Visit [facility] [address] [place] [address] Stented coronary artery 07/30/2024 10:30 AM FILM TECHNICIAN Ancillary Procedure [facility] Card[facility] [address] [place] [address] Positional lightheadedness 07/24/2024 Telephone [facility] Cardiology [address] [place] [address] Halie Cai NP 07/19/2024 11:00 AM FILM TECHNICIAN Office Visit [facility] Cardiology [address] [place] [address] [place] [phone] Halie Cai NP Positional lightheadedness (Primary Dx); Coronary artery disease involving chefornak coronary artery of chefornak heart without angina pectoris; Stage 3b chronic kidney disease (HCC) 07/03/2024 2:00 PM FILM TECHNICIAN Office Visit [address] [place] [phone] Halie Cai NP Positional lightheadedness (Primary Dx); Stage 3b chronic kidney disease (HCC); Coronary artery disease involving chefornak coronary artery of chefornak heart without angina pectoris; Status post coronary angiogram; Presence of stent in coronary artery 06/29/2024 10:00 AM FILM TECHNICIAN - 06/29/2024 11:30 AM FILM TECHNICIAN Surgery [facility] [address] [place] [address] Austin Richard MD RIGHT LEFT HEART CATHETERIZATION WITH CORONARY ANGIOGRAPHY GRAFT AND WITH OR WITHOUT LEFT VENTRICULOGRAPHY [id number] 06/29/2024 7:31 AM FILM TECHNICIAN - 06/29/2024 5:12 PM FILM TECHNICIAN Hospital Encounter [facility] [address] [place] [address] Austin Richard MD LÓPEZ (dyspnea on exertion); 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) Discharge Disposition: Discharge to home or self care 05/23/2024 2:15 PM FILM TECHNICIAN Office Visit [facility] Cardiology [address] [place] [address] [place] [phone] Oz Cardona MD LÓPEZ (dyspnea on exertion) (Primary Dx); 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); Essential hypertension; Hyperlipidemia LDL goal <70 05/23/2024 Telephone [facility] Cardiology [address] [place] [address] [address] [place] [phone] Oz Cardona MD from Last 3 Months Surgical History Surgery Date Site/Laterality Comments APPENDECTOMY Appendectomy CHOLECYSTECTOMY Cholecystectomy COLON SURGERY 06/27/2018 - 06/26/2019 HYSTERECTOMY HERNIA REPAIR Medical History Medical History Date Comments Hx Other Medical hx Gout; Commen ts: [facility] 04/19/2014 - Chronic coronary artery disease Coronary artery disease Hypertension Hypertension Gastroesophageal reflux disease GERD Hx Other Medical hysterectomy wi th BSO; Comments: [facility] 04/19/2014 - Hx Other Medical breast biopsy-b enign; Comments: [facility] 04/19/2014 - Awareness under anesthesia Chronic [...] on file Legal Sex Female 7:57 AM FILM TECHNICIAN Gender Identity Not on file Sexual Orientation Not on file Obstetrics History Last Filed Vital Signs Vital Sign Reading Time Taken Comments Blood Pressure 121/76 08/07/2024 12:00 PM FILM TECHNICIAN Pulse 75 08/07/2024 12:00 PM FILM TECHNICIAN Temperature 36.5 C (97.7 F) 06/29/2024 8:00 AM FILM TECHNICIAN Respiratory Rate 18 08/07/2024 12:0 0 PM FILM TECHNICIAN Oxygen Saturation 96% 08/07/2024 12: 00 PM FILM TECHNICIAN Inhaled Oxygen Concentration - - Weight 78.4 kg (172 lb 12.8 oz) 025 12:00 PM FILM TECHNICIAN Height 160 cm (5' 3 ) 08/07/2024 12:00 PM FILM TECHNICIAN Body Mass Index 30.61 08/07/2024 12:00 PM FILM TECHNICIAN Plan of Treatment Health Maintenance Due Date [...] 08/07/2025 08/07/2024 Medical Devices Implanted Type Area Line Worker Device Identifier Shelf Expiration Date Model / Serial / Lot Medtronic Card Vasc Surgery 3.0 X 18mm Marcelo Braxton Rx Coronary Stent [id number] - [id number] Implanted:Qty: 1 on 06/29/2024 by Austin Richard MD at [facility] Medtronic Card Vasc Surgery 03/01/2027 [id number] / / [id number] Reyes Vascular System Closure Repair Femoral Artery Suture Mediated Perclose Prostyle 83689-22 - [id number] Implanted:Qty: 1 on 06/29/2024 by Austin Richard MD at [facility] [employer] 04/26/2026 [id number] / / [id number] Access Closure Inc Mynx Control 6-7fr 2 Mode Balloon Catheter Sealant Lock Syringe [id number] - [id number] Implanted:Qty: 1 on 06/29/2024 by Austin Richard MD at [facility] Right: Vein Access [employer]osure Inc 03/01/2026 [id number] / / [id number] Procedures Procedure Name Priority Date/Time Associated Diagnosis Comments VASCULAR ACCESS US GUIDANCE Routine 06/29/2024 11:57 AM FILM TECHNICIAN LÓPEZ (dyspnea on exertion) 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) CORONARY OCT, 1ST VESSEL Routine 025 11:57 AM FILM TECHNICIAN LÓPEZ (dyspnea on exertion) 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) PERCUTANEOUS CORONARY LITHROTRIPSY W/ PCI (+) [id number] Routine 06/29/2024 11:57 AM FILM TECHNICIAN LÓPEZ (dyspnea on exertion) 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) ENRIQUE MAJOR CORONARY Routine 06/29/2024 11 :57 AM FILM TECHNICIAN LÓPEZ (dyspnea on exertion) 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) RIGHT LEFT HEART CATHETERIZATION CORONARY GRAFT WITH WITHOUT LEFT VENTRICULOGRAPHY ANGIOGRAM Routine 06/29/2024 11:57 AM FILM TECHNICIAN LÓPEZ (dyspnea on exertion) 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) POCT ACTIVATED CLOTTING TIME, HIGH RANGE Routine 06/29/2024 11:35 AM FILM TECHNICIAN POCT ACTIVATED CLOTTING TIME, HIGH RANGE Routine 06/29/2024 11:14 AM FILM TECHNICIAN MODERATE SEDATION SAME MD PETERSEN ADDL 15 MIN [id number] 06/29/2024 10:08 AM FILM TECHNICIAN 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) MODERATE SEDATION 06/29/2024 10: 08 AM FILM TECHNICIAN 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) EGFR STAT 06/29/2024 7:48 AM FILM TECHNICIAN DIFFERENTIAL AUTO STAT 06/29/2024 7:4 8 AM FILM TECHNICIAN CBC WITH AUTO DIFFERENTIAL STAT 06/29/2024 7:48 AM FILM TECHNICIAN BASIC METABOLIC PANEL STAT 06/29/2024 7:48 AM FILM TECHNICIAN from Last 3 Months Results * RIGHT LEFT HEART CATHETERIZATION CORONARY GRAFT WITH WITHOUT LEFT VENTRICULOGRAPHY ANGIOGRAM, ENRIQUE MAJOR CORONARY, PERCUTANEOUS CORONARY LITHROTRIPSY W/ PCI (+) [id number], CORONARY OCT, 1ST VESSEL, VASCULAR ACCESS US GUIDANCE (06/29/2024 11:57 AM FILM TECHNICIAN) Anatomical Region Laterality Modality X-Ray Angiograph y Narrative 06/29/2024 12:25 PM FILM TECHNICIAN CARDIAC CATHETERIZATION REPORT Jayce Mott IP ENCOUNTER: [id number] Date of Procedure: 06/29/2024 BIRTHDATE: 1950 COST ACCOUNTING CLERK: Austin Richard MD REFERRING PHYSICIAN: Dr. Cardona [...] patient. Patient was then brought into the cath lab radiology technician and was draped and prepped in the usual manner. Moderate sedation was given and the right groin was subcutaneously injected with 1% lidocaine. The right femoral vein was accessed using a 7 Latvian sheath via micropuncture needle and modified Seldinger technique under ultrasound guidance. The right common femoral artery was accessed using a 5Fr sheath via a micropuncture needle and modified Seldinger technique under ultrasound guidance. A 7 Latvian [place]-Nikky catheter was advanced into the right atrium, [...] stent underexpansion. A 3.0 x 18mm Marcelo Braxton ENRIQUE was deployed in the proximal RCA and post dilated with a 3.5 x 12mm NC balloon to high ryan with excellent angiographic results. Hemostasis was achieved with a Perclose device at the end of the procedure. CONCLUSIONS Successful IVUS guided and IVL shockwave assisted PCI to the proximal RCA ISR with a 3.0 x 18 Marcelo Braxton ENRIQUE; post dilated with a 3.5 x 12 NC balloon to high ryan with excellent angiographic results. PLAN Continue ASA 81mg PO daily Start clopidogrel 75mg PO daily Continue oral lasix and aggressive risk factor modification us Austin Richard MD CV CARDIAC CATH PROCEDURES Final Result * (ABNORMAL) POC Activated Clotting Time, High Range (06/29/2024 11:35 AM FILM TECHNICIAN) Pathologist [facility] ACT 211(H) 87 - 138 sec Blood 06/29/2024 11:3 5 AM FILM TECHNICIAN 06/29/2024 11:35 AM FILM TECHNICIAN us Austin Richard MD LAB BLOOD ORDERABLES Final Resul t Performing Organization Address City/[facility] Co de Phone Number [place] [address] [place] [address] * (ABNORMAL) POC Activated Clotting Time, High Range (06/29/2024 11:14 AM FILM TECHNICIAN) Pathologist [facility] ACT 192(H) 87 - 138 sec Blood 06/29/2024 11:1 4 AM FILM TECHNICIAN 06/29/2024 11:14 AM FILM TECHNICIAN us Austin Richard MD LAB BLOOD ORDERABLES Final Resul t Performing Organization Address [facility] Co de Phone Number GEN[place] [address] [address] [address] * (ABNORMAL) eGFR (06/29/2024 7:48 AM FILM TECHNICIAN) [facility] eGFR 43(L) >=60 mL/min/1. 73 m2 Comment: [...] last reviewed 2021. Blood 06/29/2024 7:48 AM FILM TECHNICIAN 06/29/2024 8:04 AM FILM TECHNICIAN us Austin Richard MD LAB BLOOD ORDERABLES Final Resul t [place] [address] Department [place] [address] * Differential, auto (06/29/2024 7:48 AM FILM TECHNICIAN) Neutrophil abs 3.0 1.5 - 6.5 K/cumm Imm gran abs 0.0 0.0 - 0.1 K/cumm [facility] Lymphocyte abs 1.4 0.8 - 3.3 K/cumm [facility] Monocyte abs 0.6 0.2 - 0.8 K/cumm [facility] Eosinophil abs 0.1 0.0 - 0.5 K/cumm [facility] Basophil abs 0.1 0.0 - 0.1 K/cumm [facility] Neutrophil pct 58.1 % [facility] Comment: Interpretive Data Percent cell count [...] revised on 2017. Monocyte pct 11.5 % [facility] Comment: Interpretive Data Percent cell count reference ranges are not reported, since discordance with absolute values may lead to misinterpretation of CBC data. Current Interpretive Data was last revised on 2017. Eosinophil pct 2.7 % [facility] Comment: Interpretive Data Percent cell count reference ranges are not reported, since discordance with absolute values may lead to misinterpretation of CBC data. Current Interpretive Data was last revised on 2017. Basophil pct 1.1 % [facility] Comment: Interpretive Data Percent cell count reference ranges are not reported, since discordance with absolute values may lead to misinterpretation of CBC data. Current Interpretive Data was last revised on 2017. Blood 06/29/2024 7:48 AM FILM TECHNICIAN 06/29/2024 8:03 AM FILM TECHNICIAN us Austin Richard MD LAB BLOOD ORDERABLES Final Resul t [facility] [address] [address] Department [place] [address] * (ABNORMAL) CBC with auto differential (06/29/2024 7:48 AM FILM TECHNICIAN) WBC 5.2 3.8 - 9.9 K/cumm Hgb 10.1(L) 11.9 - 15.5 g/dL [facility] Hct 33.6(L) 35.6 - 45.5 % [facility] Plt 243 150 - 400 K/cumm [facility] MPV 10.0 9.1 - 12.3 fL [facility] RBC 3.44(L) 3.90 - 5.20 M/cumm [facility] MCV 97.7(H) 81.3 - 96.4 fL [facility] MCH 29.4 27.1 - 33.3 pg [facility] MCHC 30.1(L) 32.3 - 35.7 g/dL [facility] RDW CV 15.0(H) 11.1 - 14.9 % [facility] RDW SD 53.4(H) 35.7 - 48.1 fL [facility] NRBC abs 0.00 0.00 - 0.01 K/cumm [facility] Blood 06/29/2024 7:48 AM FILM TECHNICIAN 06/29/2024 8:03 AM FILM TECHNICIAN Narrative [facility] - 06/29/2024 8:08 AM FILM TECHNICIAN If most recent labs were drawn prior to 4 AM, draw only prior to initiating procedure. Austin Richard MD LAB BLOOD ORDERABLES Final Resul t Performing Organization Address City/[facility]/ZIP Co de Phone Number [facility] [address] [address] Department [place] [address] * (ABNORMAL) Basic metabolic panel (06/29/2024 7:48 AM FILM TECHNICIAN) Pathologist [facility] Sodium 141 135 - 145 mmol/L Potassium, pl 4.4 3.3 - 4.9 mmol/L [facility] Chloride 111(H) 97 - 110 mmol/L [facility] CO2 20(L) 22 - 32 mmol/L [facility] Anion gap 10 2 - 15 mmol/L [facility] BUN 23 6 - 25 mg/dL [facility] Creatinine 1.31(H) 0.60 - 1.10 mg/dL [facility] Glucose 78 70 - 199 mg/dL [facility] Comment: Interpretive Data Fasting glucose >/= 126 [...] 2022. Calcium 10.1 8.5 - 10.3 mg/dL [facility] Blood 06/29/2024 7:48 AM FILM TECHNICIAN 06/29/2024 8:04 AM FILM TECHNICIAN Austin Richard MD LAB BLOOD ORDERABLES Final Resul t [facility] [address] [address] Department [place] [address] from Last 3 Months Insurance [employer] MEDICARE MEDICARE [employer] Member Subscriber Plan / Payer (Ef fective 2014-Present) Name:Jayce Mott Relation to Subscriber:Self Name:Jayce Mott Payer ID:[id number] Group ID:Not on file Type:COMMERCIAL Address: [facility] [address] MEDICARE [employer] Member Subscriber Plan / Payer (Ef fective 2014-Present) Name:Jayce Mott Relation to Subscriber:Self Name:Jayce Mott Payer ID:[id number] Group ID:Not on file Type:COMMERCIAL Address: [facility] [address] Advance Directives For more information, please contact: [phone] * Full Code (Latest Code Status on File) Date Activated Date Inactivated Comments 06/29/2024 1:58 PM 06/29/2024 9:12 PM * Full Code Date Activated Date Inactivated Comments 01/15/2022 8:39 AM 01/15/2022 2:41 PM Care Teams Therapist Physical Relationship Specialty Start Date End Date Devyn Fry MD [address] [place] [address] PCP - General Family Medicine 04/11/24
[2024-08-13 18:29] LABS: Basophils Percent Auto 0.8 % (0.2-1.2); Eosinophils Percent Auto 0.2 % (0-4.4); Hematocrit 33.2 % (37.0-47.0); Hemoglobin 10.2 g/dL (12.0-15.0); Immature Granulocyte Absolute 0.01 K/mm3 (0.00-0.031); Immature Granulocyte Percent A 0.2 % (0-0.5); Lymphocytes Percent Auto 18.9 % (18.3-44.2); Mean Corpuscular HGB Conc 30.7 g/dl (32-36); Mean Corpuscular Hemoglobin 28.4 pg (26-34); Mean Corpuscular Volume 92.5 fl (80-100); Mean Platelet Volume 9.9 fl (7.4-10.4); Monocytes Absolute Auto 0.7 K/mm3 (0.1-0.6); Monocytes Percent Auto 14.1 % (2.6-8.5); Neutrophils Absolute Auto 3.1 K/mm3 (1.3-6.7); Neutrophils Percent Auto 65.8 % (45.5-73.1); Platelet Count Result 219 k/mm3 (150-375); Red Blood Count 3.59 M/mm3 (4.2-5.4); Red Cell Distribution Width 14.4 % (11.5-14.5); White Blood Count 4.8 K/mm3 (4.5-10.0)
[2024-08-13 18:45] LABS: Alanine Aminotransferase 27 U/L (6-35); Albumin Level 3.9 g/dL (3.5-5.1); Alkaline Phosphatase 117 U/L (38-126); Anion Gap 11 mmol/L (4-12); Aspartate Amino Transferase 44 U/L (14-36); Bilirubin,Total 0.4 mg/dL (0.2-1.3); Blood Urea Nitrogen 27 mg/dL (7-17); Calcium 10.4 mg/dL (8.4-10.2); Carbon Dioxide 21 mmol/L (22-30); Chloride 107 mmol/L (98-107); Estimated CRCL calculation 28 ml/min; Estimated Glomerular Filt Rate 32; Glucose 90 mg/dL (65-110); Potassium 3.4 mmol/L (3.4-5.0); Sodium 139 mmol/L (137-145)
[2024-08-13 18:56] LABS: NT Pro B Type Natriuretic Pept 1780 pg/mL (19.9-100); Troponin I 0.015 ng/mL (0.000-0.034)
[2024-08-13 19:00] LABS: Prothrombin Time 13.5 Seconds (11.1-14.7)
[2024-08-13 19:01] LABS: Influenza A QL RT-PCR Positive (Negative); Influenza B QL RT-PCR Negative (Negative); RSV RNA, RT-PCR Negative (Negative); SARS-CoV-2 RNA PCR Negative (Negative)
[2024-08-13 19:02] LABS: Partial Thromboplastin Time 29.3 Seconds (22.3-36.8)
--- OUTSIDE RECORDS SUMMARY | 2024-08-13 20:14 | XMS_ITS | Continuity of Care Document ---
Author Organization [facility] Address [address] [place] [address] Phone Care Team Providers Care Talent Director Name Role Phone Frandy Barrera DO Unavailable Unavailable Advance Directives Directive Yes / No Effective Date File Name No Information Encounters Encounter Description Practice Location Reason(s) For Visit Diagnoses Date Provider Providers Copied on Encounter [facility], [address], [place], [place], [id number], [place] tel:[phone] [facility] No Information Bruce Tabares. [address] [facility], [place], [address], [place]. tel: [phone] Family History Family Member Type Diagnosis Age At Onset No Information Payers Payer name Insurance type Covered alliance party ID Authoriza tion(s) No Information Social [...]
--- OUTSIDE RECORDS SUMMARY | 2024-08-13 20:14 | XMS_ITS | Clinical Summary ---
Author Organization [facility] Address [address] [place] [address] Phone Care Team Providers Care Sisal Picker Name Role Phone Ramos Vera MD Primary Care Provider [phone] Allergies Active Allergy Reactions Criticality Noted Date [...] STL ABSTRACTION Provider, Abstract 05/29/2024 Orders Only [facility] Oncology and Hematology - Sreekanth [address] [place] [address] Alvin Cueto MD 05/22/2024 Orders Only [facility] Oncology and Hematology - Sreekanth [address] [place] [address] Alvin Cueto MD 05/21/2024 Telephone [facility] Oncology and Hematology - Sreekanth [address] [place] [address] Alvin Cueto MD Lab Results 05/18/2024 Orders Only [facility] Oncology and Hematology - Sreekanth [address] [place] [address] Alvin Cueto MD 05/15/2024 Telephone [facility] Oncology and Hematology - Sreekanth [address] [place] [address] Alvin Cueto MD Breathing Problem from Last [...] cm (5' 3 ) 05/25/2022 1:47 PM LITHOGRAPHIC STRIPPER Body Mass Index 29.58 05/25/2022 1:47 PM LITHOGRAPHIC STRIPPER Plan of Treatment Upcoming Encounters Date Type Department Care Team (Late st Contact Info) Description 08/16/2024 11:00 AM LITHOGRAPHIC STRIPPER Office Visit [facility] Oncology and Hematology - [place] [address] [place] [address] [address] [place] [address] Alvin Cueto MD [address] [facility] [address] [place] [address] Health Maintenance Due Date Last [...] PROTEIN ELECTROPHORESIS, CSF Routine 05/23/2024 8:38 AM LITHOGRAPHIC STRIPPER KAPPA/LAMBDA LIGHT CHAINS Routine 2023 3:27 PM LITHOGRAPHIC STRIPPER COMPREHENSIVE METABOLIC PANEL Routine 05/16/2024 2:10 PM LITHOGRAPHIC STRIPPER CBC WITH DIFFERENTIAL Routine 05/16/2024 12:14 PM LITHOGRAPHIC STRIPPER from Last 3 Months Results * PROTEIN ELECTROPHORESIS, CSF (05/23/2024 8:38 AM LITHOGRAPHIC STRIPPER) Cerebrospinal fluid CEREBROSPINAL FLUID / Unknown us Alvin Cueto MD BODY FLUIDS AND STOOLS Final Re sult * KAPPA/LAMBDA, FREE LIGHT CHAINS (05/22/2024 3:27 PM LITHOGRAPHIC STRIPPER) Blood us Alvin Cueto MD CHEMISTRY ORDERABLES Final Resu lt * COMPREHENSIVE METABOLIC PANEL (05/16/2024 2:10 PM LITHOGRAPHIC STRIPPER) Blood us Alvin Cueto MD CHEMISTRY ORDERABLES Final Resu lt * CBC WITH DIFFERENTIAL (05/16/2024 12:14 PM LITHOGRAPHIC STRIPPER) Blood us Alvin Cueto MD HEMATOLOGY ORDERABLES Final Res ult from Last 3 Months Insurance MEDICARE PART A AND B [employer] [facility] Medicare Part D MEDICARE PART A AND B [employer] [place] [employer] Care Teams Sisal Picker Relationship Specialty Start Date End Date Ramos Vera MD [address] [place] [address] PCP - General Family Practice 09/29/20
--- OUTSIDE RECORDS SUMMARY | 2024-08-13 20:15 | XMS_ITS | Referral Summary ---
Author Organization [place] [address] [address] [place] [phone] Care Team Providers Care Assembly Machine Feeder Name Role Phone Devyn Fry MD Primary Care Provider [phone] Encounters Date Type Department Care Team Description 08/07/2024 12:15 PM HOUSECLEANER FLOOR Office Visit [facility] Cardiac [facility] [address] [place] [address] Stented coronary artery 07/30/2024 10:30 AM HOUSECLEANER FLOOR Ancillary Procedure [facility] Cardiology [address] [place] [address] [address] [place] [phone] Positional lightheadedness 07/24/[address] [place] [phone] Halie Cai NP 07/19/2024 11:00 AM HOUSECLEANER FLOOR Office Visit [place] [address] [place] [phone] Halie Cai NP Positional lightheadedness (Primary Dx); Coronary artery disease involving [place]zebue coronary artery of k[place] heart without angina pectoris; Stage 3b chronic kidney disease (HCC) 07/03/2024 2:00 PM HOUSECLEANER FLOOR Office Visit [facility] Cardiology [address] [place] [address] [address] [place] [phone] Halie Cai NP Positional lightheadedness (Primary Dx); Stage 3b chronic kidney disease (HCC); Coronary artery disease involving kotzebue coronary artery of kotzebue heart without angina pectoris; Status post coronary angiogram; Presence of stent in coronary artery 06/29/2024 10:00 AM HOUSECLEANER FLOOR - 06/29/2024 11:30 AM HOUSECLEANER FLOOR Surgery [facility] Cardiac Catheterization Lab [id number] [place] [address] Austin Richard MD RIGHT LEFT HEART CATHETERIZATION WITH CORONARY ANGIOGRAPHY GRAFT AND WITH OR WITHOUT LEFT VENTRICULOGRAPHY [id number] 06/29/2024 7:31 AM HOUSECLEANER FLOOR - 06/29/2024 5:12 PM HOUSECLEANER FLOOR Hospital Encounter [facility] Cardiac Catheterization Lab [id number] [place] [address] Austin Richard MD LÓPEZ (dyspnea on exertion); 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) Discharge Disposition: Discharge to home or self care 05/23/2024 Telephone [facility] Cardiology [address] [place] [phone] Oz Cardona MD 05/23/2024 2:15 PM HOUSECLEANER FLOOR Office Visit [facility] Cardiology [facility] [address] [place] [phone] Oz Cardona MD LÓPEZ (dyspnea on exertion) (Primary Dx); 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); Essential [...] 20 mg tabletIndicatio ns: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) Take [...] artery disease of n ative artery of kotzebue heart with stable angina pectoris 04/11/2024 Pancreatic cyst 12/22/2021 Overview (12/22/2021): Added automatically from request for surgery [id number] Social History Tobacco Use Types Packs/Day Years [...] on file Legal Sex Female 7:57 AM HOUSECLEANER FLOOR Gender Identity Not on file Sexual Orientation Not on file Last Filed Vital Signs Vital Sign Reading Time Taken Comments Blood Pressure 121/76 08/07/2024 12:00 PM HOUSECLEANER FLOOR Pulse 75 08/07/2024 12:00 PM HOUSECLEANER FLOOR Temperature 36.5 C (97.7 F) 06/29/2024 8:00 AM HOUSECLEANER FLOOR Respiratory Rate 18 08/07/2024 12:0 0 PM HOUSECLEANER FLOOR Oxygen Saturation 96% 08/07/2024 12: 00 PM HOUSECLEANER FLOOR Inhaled Oxygen Concentration - - Weight 78.4 kg (172 lb 12.8 oz) 025 12:00 PM HOUSECLEANER FLOOR Height 160 cm (5' 3 ) 08/07/2024 12:00 PM HOUSECLEANER FLOOR Body Mass Index 30.61 08/07/2024 12:00 PM HOUSECLEANER FLOOR Plan of Treatment Not on file Medical Devices Implanted Type Area Steam And Power Superintendent Device Identifier Shelf Expiration Date Model / Serial / Lot Medtronic Card Vasc Surgery 3.0 X 18mm Marcelo [place] Rx Coronary Stent [id number] - [id number] Implanted:Qty: 1 on 06/29/2024 by Austin Richard MD at [facility] Medtronic Card Vasc Surgery 03/01/2027 [id number] / / [id number] Reyes Vascular System Closure Repair Femoral Artery Suture Mediated Perclose Prostyle [id number] - [id number] Implanted:Qty: 1 on 06/29/2024 by Austin Richard MD at [facility] [employer] 04/26/2026 [id number] / / [id number] Access Closure Inc Mynx Control 6-7fr 2 Mode Balloon Catheter Sealant Lock Syringe [id number] - [id number] Implanted:Qty: 1 on 06/29/2024 by Austin Richard MD at [facility] Right: Vein Access [employer]osure Inc 03/01/2026 [id number] / / [id number] Procedures Procedure Name Priority Date/Time Associated Diagnosis Comments VASCULAR ACCESS US GUIDANCE Routine 06/29/2024 11:57 AM HOUSECLEANER FLOOR LÓPEZ (dyspnea on exertion) 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) CORONARY OCT, 1ST VESSEL Routine 025 11:57 AM HOUSECLEANER FLOOR LÓPEZ (dyspnea on exertion) 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) PERCUTANEOUS CORONARY LITHROTRIPSY W/ PCI (+) [id number] Routine 06/29/2024 11:57 AM HOUSECLEANER FLOOR LÓPEZ (dyspnea on exertion) 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) ENRIQUE MAJOR CORONARY Routine 06/29/2024 11 :57 AM HOUSECLEANER FLOOR LÓPEZ (dyspnea on exertion) 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) RIGHT LEFT HEART CATHETERIZATION CORONARY GRAFT WITH WITHOUT LEFT VENTRICULOGRAPHY ANGIOGRAM Routine 06/29/2024 11:57 AM HOUSECLEANER FLOOR LÓPEZ (dyspnea on exertion) 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) POCT ACTIVATED CLOTTING TIME, HIGH RANGE Routine 06/29/2024 11:35 AM HOUSECLEANER FLOOR POCT ACTIVATED CLOTTING TIME, HIGH RANGE Routine 06/29/2024 11:14 AM HOUSECLEANER FLOOR MODERATE SEDATION SAME MD PETERSEN ADDL 15 MIN [id number] 06/29/2024 10:08 AM HOUSECLEANER FLOOR 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) MODERATE SEDATION 06/29/2024 10: 08 AM HOUSECLEANER FLOOR 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) EGFR STAT 06/29/2024 7:48 AM HOUSECLEANER FLOOR DIFFERENTIAL AUTO STAT 06/29/2024 7:4 8 AM HOUSECLEANER FLOOR CBC WITH AUTO DIFFERENTIAL STAT 06/29/2024 7:48 AM HOUSECLEANER FLOOR BASIC METABOLIC PANEL STAT 06/29/2024 7:48 AM HOUSECLEANER FLOOR from Last 3 Months Results * RIGHT LEFT HEART CATHETERIZATION CORONARY GRAFT WITH WITHOUT LEFT VENTRICULOGRAPHY ANGIOGRAM, ENRIQUE MAJOR CORONARY, PERCUTANEOUS CORONARY LITHROTRIPSY W/ PCI (+) [id number], CORONARY OCT, 1ST VESSEL, VASCULAR ACCESS US GUIDANCE (06/29/2024 11:57 AM HOUSECLEANER FLOOR) Anatomical Region Laterality Modality X-Ray Angiograph y Narrative 06/29/2024 12:25 PM HOUSECLEANER FLOOR CARDIAC CATHETERIZATION REPORT Hui Mott IP ENCOUNTER: [id number] Date of Procedure: 06/29/2024 BIRTHDATE: 1950 NETEZZA DEVELOPER: Austin Richard MD REFERRING PHYSICIAN: Dr. Cardona [...] patient. Patient was then brought into the geophysical laboratory director and was draped and prepped in the usual manner. Moderate sedation was given and the right groin was subcutaneously injected with 1% lidocaine. The right femoral vein was accessed using a 7 Nigerian sheath via micropuncture needle and modified Seldinger technique under ultrasound guidance. The right common femoral artery was accessed using a 5Fr sheath via a micropuncture needle and modified Seldinger technique under ultrasound guidance. A 7 Nigerian Madrid-Nikky catheter was advanced into the right atrium, [...] of stent underexpansion. A 3.0 x 18mm [place] ENRIQUE was deployed in the proximal RCA and post dilated with a 3.5 x 12mm NC balloon to high ryan with excellent angiographic results. Hemostasis was achieved with a Perclose device at the end of the procedure. CONCLUSIONS Successful IVUS guided and IVL shockwave assisted PCI to the proximal RCA ISR with a 3.0 x 18 [place] ENRIQUE; post dilated with a 3.5 x 12 NC balloon to high ryan with excellent angiographic results. PLAN Continue ASA 81mg PO daily Start clopidogrel 75mg PO daily Continue oral lasix and aggressive risk factor modification us Austin Richard MD CV CARDIAC CATH PROCEDURES Final Result * (ABNORMAL) POC Activated Clotting Time, High Range (06/29/2024 11:35 AM HOUSECLEANER FLOOR) ACT 211(H) 87 - 138 sec Blood 06/29/2024 11:3 5 AM HOUSECLEANER FLOOR 06/29/2024 11:35 AM HOUSECLEANER FLOOR Result Pantera Richard MD LAB BLOOD ORDERABLES Final Resul t Performing Organization Address [facility] Co de Phone Number [place] [address] [address] [employer] [place], [place] [id number] * (ABNORMAL) POC Activated Clotting Time, High Range (06/29/2024 11:14 AM HOUSECLEANER FLOOR) ACT 192(H) 87 - 138 sec Blood 06/29/2024 11:1 4 AM HOUSECLEANER FLOOR 06/29/2024 11:14 AM HOUSECLEANER FLOOR us Austin Richard MD LAB BLOOD ORDERABLES Final Resul t Performing Organization Address City/[facility] Co de Phone Number [place] [address] [address] [place] [address] * (ABNORMAL) eGFR (06/29/2024 7:48 AM HOUSECLEANER FLOOR) Pathologist [facility] eGFR 43(L) >=60 mL/min/1. 73 m2 Comment: [...] last reviewed 2021. Blood 06/29/2024 7:48 AM HOUSECLEANER FLOOR 06/29/2024 8:04 AM HOUSECLEANER FLOOR us Austin Richard MD LAB BLOOD ORDERABLES Final Resul t [facility] [address] [address] Department of Laboratories [place], [place] [id number] * Differential, auto (06/29/2024 7:48 AM HOUSECLEANER FLOOR) Neutrophil abs 3.0 1.5 - 6.5 K/cumm Imm gran abs 0.0 0.0 - 0.1 K/cumm [facility] Lymphocyte abs 1.4 0.8 - 3.3 K/cumm [facility] Monocyte abs 0.6 0.2 - 0.8 K/cumm [facility] Eosinophil abs 0.1 0.0 - 0.5 K/cumm [facility] Basophil abs 0.1 0.0 - 0.1 K/cumm [facility] Neutrophil pct 58.1 % [facility] Comment: Interpretive Data Percent cell count [...] revised on 2017. Lymphocyte pct 26.4 % [facility] Comment: Interpretive Data Percent cell count reference ranges are not reported, since discordance with absolute values may lead to misinterpretation of CBC data. Current Interpretive Data was last revised on 2017. Monocyte pct 11.5 % [facility] Comment: Interpretive Data Percent cell count reference ranges are not reported, since discordance with absolute values may lead to misinterpretation of CBC data. Current Interpretive Data was last revised on 2017. Eosinophil pct 2.7 % [facility] Comment: Interpretive Data Percent cell count reference ranges are not reported, since discordance with absolute values may lead to misinterpretation of CBC data. Current Interpretive Data was last revised on 2017. Basophil pct 1.1 % [facility] Comment: Interpretive Data Percent cell count reference ranges are not reported, since discordance with absolute values may lead to misinterpretation of CBC data. Current Interpretive Data was last revised on 2017. Blood 06/29/2024 7:48 AM HOUSECLEANER FLOOR 06/29/2024 8:03 AM HOUSECLEANER FLOOR us Austin Richard MD LAB BLOOD ORDERABLES Final Resul t [facility] [address] [address] [place] [address] * (ABNORMAL) CBC with auto differential (06/29/2024 7:48 AM HOUSECLEANER FLOOR) WBC 5.2 3.8 - 9.9 K/cumm Hgb 10.1(L) 11.9 - 15.5 g/dL [facility] Hct 33.6(L) 35.6 - 45.5 % [facility] Plt 243 150 - 400 K/cumm [facility] MPV 10.0 9.1 - 12.3 fL [facility] RBC 3.44(L) 3.90 - 5.20 M/cumm [facility] MCV 97.7(H) 81.3 - 96.4 fL [facility] MCH 29.4 27.1 - 33.3 pg [facility] MCHC 30.1(L) 32.3 - 35.7 g/dL [facility] CV 15.0(H) 11.1 - 14.9 % [facility] SD 53.4(H) 35.7 - 48.1 fL [facility] NRBC abs 0.00 0.00 - 0.01 K/cumm [facility] Blood 06/29/2024 7:48 AM HOUSECLEANER FLOOR 06/29/2024 8:03 AM HOUSECLEANER FLOOR Narrative [facility] - 06/29/2024 8:08 AM HOUSECLEANER FLOOR If most recent labs were drawn prior to 4 AM, draw only prior to initiating procedure. us Austin Richard MD LAB BLOOD ORDERABLES Final Resul t [facility] [address] [address] [place] [address] * (ABNORMAL) Basic metabolic panel (06/29/2024 7:48 AM HOUSECLEANER FLOOR) Sodium 141 135 - 145 mmol/L Potassium, pl 4.4 3.3 - 4.9 mmol/L [facility] Chloride 111(H) 97 - 110 mmol/L [facility] CO2 20(L) 22 - 32 mmol/L [facility] Anion gap 10 2 - 15 mmol/L [facility] BUN 23 6 - 25 mg/dL [facility] Creatinine 1.31(H) 0.60 - 1.10 mg/dL [facility] Glucose 78 70 - 199 mg/dL [facility] Comment: Interpretive Data Fasting glucose [...] Calcium 10.1 8.5 - 10.3 mg/dL [facility] Blood 06/29/2024 7:48 AM HOUSECLEANER FLOOR 06/29/2024 8:04 AM HOUSECLEANER FLOOR us Austin Richard MD LAB BLOOD ORDERABLES Final Resul t Performing Organization Address City/State/[facility] [place] [address] [address] [place] [address] from Last 3 Months Insurance [employer] [facility] MEDICARE MEDICARE [employer] [place] Member Subscriber Plan / Payer (Ef fective 2014-Present) Name:Hui Mott Relation to Subscriber:Self Name:Hui Mott Payer ID:[id number] Group ID:Not on file Type:COMMERCIAL Address: [facility] [address] [place], [place] MEDICARE [employer] [place] Member Subscriber Plan / Payer (Ef fective 2014-Present) Name:Hui Mott [place] Relation to Subscriber:Self Name:Hui Mott [place] Payer ID:[id number] Group ID:Not on file Type:COMMERCIAL Address: [facility] [address] [place], [place] Advance Directives For more information, please contact: [phone] * Full Code (Latest Code Status on File) Date Activated Date Inactivated Comments 06/29/2024 1:58 PM 06/29/2024 9:12 PM * Full Code Date Activated Date Inactivated Comments 01/15/2022 8:39 AM 01/15/2022 2:41 PM Care Teams Assembly Machine Feeder Relationship Specialty Start Date End Date Devyn Fry MD [address] [place] [address] PCP - General Family Medicine 04/11/24
--- OUTSIDE RECORDS SUMMARY | 2024-08-13 20:15 | XMS_ITS | Clinical Summary ---
Author Organization [facility] Address Formerly [facility] [place] [address] Care Team Providers Care Armed Security Officer Name Role Phone Devyn Fry MD Primary Care Provider [phone] Allergies Active Allergy Reactions Criticality Noted Date [...] 07/02/19 24 Active neomycin-polymy lavonne-dexamethaso ne (MAXITROL) 3.5-82979-8.1 Ointment APPLY THIN RIBBON ON UPPER AND [...] Department Care Team Description 06/04/2024 8:28 AM COAL CUTTER - 06/04/2024 11:59 PM COAL CUTTER Hospital Encounter [facility] [place] [address] MD Discharge Disposition: Home or Self Care (Routine Discharge) 06/04/2024 7:20 AM COAL CUTTER Office Visit [facility] Multispecialty Care - [facility] [address] [facility], [address] [place] [id number] MD Establish Care (Has memory [...] Comments Blood Pressure 109/70 06/04/2024 7:38 AM COAL CUTTER Pulse 75 06/04/2024 7:38 AM COAL CUTTER Temperature - - Respiratory Rate - - Oxygen Saturation 98% 06/04/2024 7:38 AM COAL CUTTER Inhaled Oxygen Concentration - - Weight 75.8 kg (167 lb) 06/04/2024 7:38 AM COAL CUTTER Height 160 cm (5' 3 ) 06/04/2024 7:38 AM COAL CUTTER Body Mass Index 29.58 06/04/2024 7:38 AM COAL CUTTER Plan of Treatment Health Maintenance Due Date Last Done Comments Colorectal Cancer Screening Colonoscopy (10 Years) 1949 Hepatitis C 1967 DTaP, Tdap and Td Vaccines (1 - Tdap) 1968 Mammogram Screening 1989 Annual Medicare Wellness Visit 2014 Dexa Scan (General) 2014 PHQ-2 (Physician [place]) 06/27/2024 06/04/2024 Zoster Vaccines Completed 12/29/2022, 10/27/2022 [...] CBC W/DIFF AUTOMATED Routine 06/04/2024 8:37 AM COAL CUTTER Memory loss COMPREHENSIVE METABOLIC PANEL Routine 06/04/2024 8:37 AM COAL CUTTER Memory loss HOMOCYSTEINE Routine 06/04/2024 8:37 AM COAL CUTTER Memory loss METHYLMALONIC ACID Routine 06/04/2024 8: 37 AM COAL CUTTER Memory loss TSH W/REFLEX Routine 06/04/2024 8:37 AM COAL CUTTER Memory loss VITAMIN B12 / FOLATE Routine 06/04/2024 8:37 AM COAL CUTTER Memory loss from Last 3 Months Results * (ABNORMAL) VITAMIN B12 / FOLATE (06/04/2024 8:37 AM COAL CUTTER) VITAMIN B12 S/P/B 554 254 - 1,320 PG/ML 06/04/2024 12:13 PM COAL CUTTER [facility] FOLATE 71.1(H) 3.1 - 17.5 NG/ML 06/04/2024 12:13 PM COAL CUTTER [facility] 06/04/2024 8:37 AM COAL CUTTER [address]i [address] MD LABORATORY Final Re sult Performing Organization Address City/[facility]/ZIP Co de Phone Number [facility] [address] [place] [address], [place] [phone] * TSH W/REFLEX (06/04/2024 8:37 AM COAL CUTTER) Pathologist [facility] TSH 3.110 0.358 - 3.74 uIU/ML 06/04/2024 9:33 AM COAL CUTTER [facility] Comment: HIGH DOSES OF BIOTIN MAY INTERFERE WITH THIS TEST RESULT. CORRELATION TO CLINICAL HISTORY AND PRESENTATION RECOMMENDED. FREE T4 NOT INDICATED 06/04/2024 8:37 AM COAL CUTTER Jessi [address] MD LABORATORY Final Re sult [facility] [address] [place] [address], [place] [phone] * METHYLMALONIC ACID (06/04/2024 8:37 AM COAL CUTTER) METHYLMALONIC ACID 279 69 - 390 nmol/L 06/07/2024 7:59 AM COAL CUTTER [email or web address] XI CR Comment: Serum methylmalonic acid (MMA) [...] neural tube defects and intrauterine growth restriction. [employer] utilized Multi-Modal Decomposition (MMD) analysis to establish first and second trimester- specific MMA reference intervals in , as given below: MMA, First trimester (<13 wks gestation): 58-167 nmol/L MMA, Second trimester (13-23 wks gestation): 63-241 nmol/L This test was developed and its analytical performance characteristics have been determined by [employer]. It has not been cleared or approved by the FDA. This assay has been validated pursuant to the CLIA regulations and is used for clinical purposes. Test Performed by [employer], [employer], [address] [place] [address] Paul Schrader M.D., Ph.D., Director of Laboratories , CLIA [id number] 06/04/2024 8:37 AM COAL CUTTER [address]i [address] MD LABORATORY Final Re sult [email or web address] [address] , * (ABNORMAL) COMPREHENSIVE METABOLIC PANEL (06/04/2024 8:37 AM COAL CUTTER) GLUCOSE 114(H) 70 - 99 MG/DL 06/04/2024 9:33 AM COAL CUTTER [facility] BUN 45(H) 7 - 18 MG/DL 06/04/2024 9:33 AM COAL CUTTER [facility] CREATININE S/P/B 1.79(H) 0.55 - 1.02 MG/DL 06/04/2024 9:33 AM [facility] SODIUM S/P/B 140 136 - 145 MMOL/L 06/04/2024 9:33 AM [facility] POTASSIUM S/P/B 3.5 3.5 - 5.1 MMOL/L 06/04/2024 9:33 AM [facility] CHLORIDE S/P/B 113 97 - 115 MMOL/L 06/04/2024 9:33 AM [facility] CO2 22.1 21 - 32 MMOL/L 06/04/2024 9:33 AM [facility] CALCIUM S/P/B 10.5(H) 8.5 - 10.1 MG/DL 06/04/2024 9:33 AM [facility] BILIRUBIN TOTAL S/P/B 0.4 0.2 - 1.2 MG/DL 06/04/2024 9:33 AM [facility] Comment: THIS ASSAY IS NOT RECOMMENDED FOR PATIENTS UNDERGOING TREATMENT WITH ELTROMBOPAG DUE TO THE POTENTIAL FOR FALSELY ELEVATED RESULTS. TOTAL PROTEIN S/P/B 7.2 6.4 - 8.2 G/DL 06/04/2024 9:33 AM [facility] ALBUMIN S/P/B 3.7 3.4 - 5.0 G/DL 06/04/2024 9:33 AM [facility] AST 30 15 - 37 U/L 06/04/2024 9:33 AM [facility] ALT 21 14 - 55 U/L 06/04/2024 9:33 AM [facility] ALKALINE PHOSPHATASE S/P/B 105 50 - 136 U/L 06/04/2024 9:33 AM [facility] ANION GAP 4.9 2 - 10 MMOL/L 06/04/2024 9:33 AM [facility] BUN CREATININE RATIO 25.1 6 - 26 06/04/2024 9:33 AM [facility] A/G RATIO 1.1 1.0 - 2.0 RATIO 06/04/2024 9:33 AM [facility] GFR ESTIMATE 29(L) >90 ML/MIN/1.7 3 M2 06/04/2024 9:33 AM [facility] Comment: NOTE: eGFR is not calculated for patients <18 years of age or gender unknown. This is an estimated GFR calculation using the new CKD EPI creatinine equation without race and so does not require a correction factor for race. This estimated GFR should not be used for calculating drug doses. 06/04/2024 8:37 AM COAL CUTTER us Jessi Street MD LABORATORY Final Re sult [facility] [address] [place] [id number], * (ABNORMAL) CBC W/DIFF AUTOMATED (06/04/2024 8:37 AM COAL CUTTER) WBC 8.61 4.5 - 11.0 x10'3/uL 06/04/2024 8:50 AM [facility] RBC 3.78(L) 4.20 - 5.40 x10'6/uL 06/04/2024 8:50 AM [facility] HGB 11.1(L) 12.0 - 16.0 G/DL 06/04/2024 8:50 AM [facility] HCT 35.8(L) 38.0 - 48.0 % 06/04/2024 8:50 AM [facility] MCV 94.7 81.0 - 99.0 FL 06/04/2024 8:50 AM [facility] MCH 29.4 27.0 - 31.0 PG 06/04/2024 8:50 AM [facility] MCHC 31.0(L) 32.0 - 36.0 G/DL 06/04/2024 8:50 AM [facility] RDW 16.0(H) 11.5 - 14.5 % 06/04/2024 8:50 AM [facility] PLT 249 130 - 400 x10'3/uL 06/04/2024 8:50 AM [facility] MPV 9.7 9.3 - 12.2 FL 06/04/2024 8:50 AM [facility] DIFFERENTIAL TYPE AUTOMATED DIFFERENTIAL 06/04/2024 8:50 AM [facility] NEUTROPHILS % 74.5 % 06/04/2024 8:50 AM [facility] LYMPHOCYTES % 16.4 % 06/04/2024 8:50 AM [facility] MONOCYTES % 7.0 % 06/04/2024 8:50 AM [facility] EOSINOPHILS 1.4 % 06/04/2024 8:50 AM [facility] BASOPHILS 0.5 % 06/04/2024 8:50 AM [facility] IMMATURE GRANS % 0.2 % 06/04/20 8:50 AM [facility] ABS. NEUTROPHILS 6.42 1.80 - 7.70 x10'3/uL 06/04/2024 8:50 AM [facility] ABS. LYMPHOCYTES 1.41 1.00 - 4.80 x10'3/uL 06/04/2024 8:50 AM [facility] ABS. MONOCYTES 0.60 0.24 - 0.86 x10'3/uL 06/04/2024 8:50 AM [facility] ABS. EOSINOPHILS 0.12 0.04 - 0.36 x10'3/uL 06/04/2024 8:50 AM COAL CUTTER [facility] ABS. BASOPHILS 0.04 0.01 - 0.08 x10'3/uL 06/04/2024 8:50 AM COAL CUTTER [facility] ABS. IMMATURE GRANULOCYTES 0.02 0.00 - 0.49 x10'3/uL 06/04/2024 8:50 AM COAL CUTTER [facility] 06/04/2024 8:37 AM COAL CUTTER Jessi [address] MD LABORATORY Final Re sult Performing Organization Address [facility]/ZIP Co de Phone Number [facility] [address] [place] [id number], [place] [phone] * (ABNORMAL) HOMOCYSTEINE (06/04/2024 8:37 AM COAL CUTTER) HOMOCYSTEINE S/P/B 19.3(H) <10.4 umol/L 06/06/2024 10:45 PM COAL CUTTER [email or web address] XI CR Comment: Homocysteine is increased by functional deficiency of folate or vitamin B12. Testing for methylmalonic acid differentiates between these deficiencies. Other causes of increased homocysteine include renal failure, folate antagonists such as methotrexate and phenytoin, and exposure to nitrous oxide. Garo Guillen, et al. [facility] [employer]. 1999;131(5):331-9. Test Performed by [employer], [employer] [facility], [address] [place] [address] Paul Schrader M.D., Ph.D., Director of Laboratories , [place] [id number] 06/04/2024 8:37 AM COAL CUTTER us Jessi Street MD LABORATORY Final Re sult [facility] [address] [place] [address], [place] [phone] from Last 3 Months Insurance [employer]IC[employer] Care Teams Armed Security Officer Relationship Specialty Start Date End Date Devyn Fry MD [address] [place] [address] PCP - General FAMILY PRACTICE 02/09/24
--- OUTSIDE RECORDS SUMMARY | 2024-08-13 20:15 | XMS_ITS | Patient Health Summary ---
Author Organization [facility] Address [address] [place] [address] Care Team Providers Care Rn Quality Name Role Phone Devyn Fry MD Primary Care Provider [phone] Note from [facility],non-owned Affiliates and Associated Physician Practices is amultiple site organization consisting of ambulatory clinics and hospital sitesin [place], [place], [place] and [place]. This disclosure is being madepursuant to the Care Everywhere program and may not contain all information available regarding this patient. Last updated 18.[facility] Allergies * Ciprofloxacin(Vomiting) * Fenofibrate(Vomiting) * [...] Comments Blood Pressure 100/60 08/29/2023 11:38 AM ASSISTED LIVING COORDINATOR Pulse 64 08/29/2023 11:38 AM ASSISTED LIVING COORDINATOR Temperature 36.7 C (98 F) 05/01/2020 6:46 PM ASSISTED LIVING COORDINATOR Respiratory Rate 14 08/29/2023 11:38 AM ASSISTED LIVING COORDINATOR Oxygen Saturation 95% 08/29/2023 11:38 AM ASSISTED LIVING COORDINATOR Inhaled Oxygen Concentration - - Weight 74.4 kg (164 lb) 08/29/2023 11:38 AM ASSISTED LIVING COORDINATOR Height 160 cm (5' 3 ) 08/29/2023 11:38 AM ASSISTED LIVING COORDINATOR Body Mass Index 29.05 08/29/2023 11:38 AM ASSISTED LIVING COORDINATOR Procedures * EEG(Performed 08/02/2023) Performed for TGA [...] encounter Results * EEG (08/02/2023 8:15 PM ASSISTED LIVING COORDINATOR) Narrative [facility] - 08/02/2023 8:15 PM ASSISTED LIVING COORDINATOR Zacarias Rubi MD 08/02/2023 8:21 PM Electroencephalogram [...] absent. FIRDA is present on occasion.. The tube mounter indicates a pulse at 60 beats per [...] ANGIO BRAIN AND NECK (08/02/2023 1:48 PM ASSISTED LIVING COORDINATOR) Anatomical Region Laterality Modality Head Computed Tomogra phy 08/02/2023 2:23 PM ASSISTED LIVING COORDINATOR Impressions 08/02/2023 3:04 PM ASSISTED LIVING COORDINATOR IMPRESSION: 1. No large vessel occlusion around the [place]. 2. No significant vascular stenosis. 3. 3 mm size right upper lobe lung nodule. Code: SSM-LungNodule Edited by Katherine Jade on 08/02/2023 2:49 PM > Interpreting Provider: Katty Noland MD on 08/02/2023 3:04 PM Narrative 08/02/2023 3:04 PM ASSISTED LIVING COORDINATOR PROCEDURE: CT ANGIO BRAIN AND NECK, DATE/TIME OF EXAM: 08/02/2023 1:49 PM, LOCATION [facility] INDICATION: G45.4: Transient global amnesia [...] aneurysmal dilatation, or branch occlusion about the [place]. The region of the anterior communicating artery is unremarkable. The distal vertebral arteries, vertebrobasilar junction, and basilar artery are normal in appearance. The posterior cerebral arteries are normal in appearance without high-grade stenosis, aneurysmal dilatation, or branch occlusion about the [place]. The posterior communicating arteries are [...] NECK, DATE/TIME OF EXAM: 08/02/2023 1:49PM, LOCATION [facility] INDICATION: G45.4: Transient global amnesia [...] aneurysmal dilatation, or branch occlusion about the [place]. The region of the anterior communicating artery is unremarkable. The distal vertebral arteries, vertebrobasilar junction, and basilarartery are normal in appearance. The posterior cerebral arteries are normal in appearance without high-grade stenosis, aneurysmal dilatation, or branch occlusion about the [place]. The posterior communicating arteries are [...] 1. No large vessel occlusion around the [place]. 2. No significant vascular stenosis. 3. 3 mm size right upper lobe lung nodule. Code: SSM-LungNodule Edited by Katherine Jade on 08/02/2023 2:49 PM > Interpreting Provider: Katty Noland MD on 08/02/2023 3:04 PM Zacarias Rubi MD CT ORDERABLES * (ABNORMAL) CREATININE - POCT INTERFACED (08/02/2023 1:43 PM ASSISTED LIVING COORDINATOR) [facility] Creatinine POCT 1.51(H) 0.70 - 1.20 mg/dL 08/02/2023 2:06 PM ASSISTED LIVING COORDINATOR [facility] eGFR 36(L) >=90 mL/min/1.7 3 m2 08/02/2023 2:06 PM ASSISTED LIVING COORDINATOR [facility] Blood BLOOD SPECIMEN / Unknown 08/02/2023 1:43 PM ASSISTED LIVING COORDINATOR 08/02/2023 2:06 PM ASSISTED LIVING COORDINATOR Zacarias Rubi MD LAB - POINT OF CARE ORDERABLES [facility] [address] [place] [address] * MRI BRAIN WO CONTRAST (08/02/2023 12:00 PM ASSISTED LIVING COORDINATOR) Anatomical Region Laterality Modality Head Magnetic Resonan ce 08/02/2023 12:0 4 PM ASSISTED LIVING COORDINATOR Impressions 08/02/2023 12:08 PM ASSISTED LIVING COORDINATOR IMPRESSION: No acute infarct. Changes related to chronic small vessel ischemic disease and cerebral atrophy. > Interpreting Provider: Katty Noland MD on 08/02/2023 12:08 PM Narrative 08/02/2023 12:08 PM ASSISTED LIVING COORDINATOR PROCEDURE: MRI BRAIN WO CONTRAST, DATE/TIME OF EXAM: 08/02/2023 12:00 PM, LOCATION [facility] INDICATION: G45.4: Transient global amnesia [...] CONTRAST, DATE/TIME OF EXAM: 08/02/2023 12:00PM, LOCATION [facility] INDICATION: G45.4: Transient global amnesia [...] * CARDIAC EKG ORDER (05/02/2020 8:29 AM ASSISTED LIVING COORDINATOR) Narrative 05/02/2020 8:29 AM ASSISTED LIVING COORDINATOR Ordered by an unspecified provider. Scanned Document CARDIAC SERVICES ORD ERABLES * CT LUMBAR SPINE WO CONTRAST - T/L-spine trauma, Spine fracture (05/01/2020 4:49 PM ASSISTED LIVING COORDINATOR) Anatomical Region Laterality Modality Spine Computed Tomogra phy 05/02/2020 7:15 AM ASSISTED LIVING COORDINATOR Impressions 05/02/2020 8:36 AM ASSISTED LIVING COORDINATOR IMPRESSION: 1.No acute intracranial abnormality. 2.Evaluation of [...] at L4-5. Dictated by Hany Goodrich MD (Site Inspector) I, Dr. FLORINDA CONDE have personally reviewed and interpreted this examination/study. This report was electronically signed by FLORINDA CONDE on 05/02/2020 8:36 AM . Narrative 05/02/2020 8:36 AM ASSISTED LIVING COORDINATOR EXAMINATION: Computed tomography (CT) of the head [...] at L4-5. Dictated by Hany Goodrich MD (Site Inspector) [place], Dr. FLORINDA CONDE have personally reviewed and interpreted this examination/study. This report was electronically signed by FLORINDA CONDE on 05/02/2020 8:36AM . Yunior Haynes MD CT ORDERABLES * CT THORACIC SPINE WO CONTRAST - T/L-spine trauma, spine fracture (05/01/2020 4:49 PM ASSISTED LIVING COORDINATOR) Anatomical Region Laterality Modality Spine Computed Tomogra phy 05/02/2020 7:15 AM ASSISTED LIVING COORDINATOR Impressions 05/02/2020 8:36 AM ASSISTED LIVING COORDINATOR IMPRESSION: 1.No acute intracranial abnormality. 2.Evaluation of [...] at L4-5. Dictated by Hany Goodrich MD (Site Inspector) Dr. FLORINDA Cifuentes have personally reviewed and interpreted this examination/study. This report was electronically signed by FLORINDA CONDE on 05/02/2020 8:36 AM . Narrative 05/02/2020 8:36 AM ASSISTED LIVING COORDINATOR EXAMINATION: Computed tomography (CT) of the head [...] at L4-5. Dictated by Hany Goodrich MD (Site Inspector) I, Dr. FLORINDA CONDE have personally reviewed and interpreted this examination/study. This report was electronically signed by FLORINDA CONDE on 05/02/2020 8:36AM . Yunior Haynes MD CT ORDERABLES * CT CERVICAL SPINE WO CONTRAST - C-Spine Trauma, Spine fracture (05/01/2020 4:49 PM ASSISTED LIVING COORDINATOR) Anatomical Region Laterality Modality Spine Computed Tomogra phy 05/02/2020 7:15 AM ASSISTED LIVING COORDINATOR Impressions 05/02/2020 8:36 AM ASSISTED LIVING COORDINATOR IMPRESSION: 1.No acute intracranial abnormality. 2.Evaluation of [...] at L4-5. Dictated by Hany Goodrich MD (Site Inspector) I, Dr. FLORINDA CONDE have personally reviewed and interpreted this examination/study. This report was electronically signed by FLORINDA CONDE on 05/02/2020 8:36 AM . Narrative 05/02/2020 8:36 AM ASSISTED LIVING COORDINATOR EXAMINATION: Computed tomography (CT) of the head [...] at L4-5. Dictated by Hany Goodrich MD (Site Inspector) Dr. FLORINDA Cifuentes have personally reviewed and interpreted this examination/study. This report was electronically signed by FLORINDA CONDE on 05/02/2020 8:36AM . Yunior Haynes MD CT ORDERABLES * CT CHEST WO CONTRAST (05/01/2020 4:49 PM ASSISTED LIVING COORDINATOR) Anatomical Region Laterality Modality Chest Computed Tomogra phy 05/01/2020 5:15 PM ASSISTED LIVING COORDINATOR Impressions 05/02/2020 8:02 AM ASSISTED LIVING COORDINATOR Impression: 1. Minimal left basilar opacities may [...] if available. Dictated by Ace Rodriguez MD (residential mortgage manager). I, Dr. E. ISIN AKDUMAN, M.D. have personally reviewed and interpreted this examination/study. This report was electronically signed by Renetta CANCHOLA M.D. on 05/02/2020 8:02 AM . Narrative 05/02/2020 8:02 AM ASSISTED LIVING COORDINATOR Procedure Information DATE: 05/01/2020 4:52 PM EXAMINATION: [...] if available. Dictated by Ace Rodriguez MD (residential mortgage manager). I, Dr. Renetta CANCHOLA M.D. have personally reviewed and interpretedthis examination/study. This report was electronically signed by Renetta CANCHOLA M.D. on 05/02/2020 8:02 AM . Yunior Haynes MD CT ORDERABLES * CT FACIAL BONES WO CONTRAST - Facial trauma, fx suspected, blunt (05/01/2020 4:49 PM ASSISTED LIVING COORDINATOR) Anatomical Region Laterality Modality Head Computed Tomogra phy 05/02/2020 7:15 AM ASSISTED LIVING COORDINATOR Impressions 05/02/2020 8:36 AM ASSISTED LIVING COORDINATOR IMPRESSION: 1.No acute intracranial abnormality. 2.Evaluation of [...] at L4-5. Dictated by Hany Goodrich MD (Site Inspector) I, Dr. FLORINDA CONDE have personally reviewed and interpreted this examination/study. This report was electronically signed by FLORINDA CONDE on 05/02/2020 8:36 AM . Narrative 05/02/2020 8:36 AM ASSISTED LIVING COORDINATOR EXAMINATION: Computed tomography (CT) of the head [...] at L4-5. Dictated by Hany Goodrich MD (Site Inspector) [place], Dr. FLORINDA CONDE have personally reviewed and interpreted this examination/study. This report was electronically signed by FLORINDA CONDE on 05/02/2020 8:36AM . Yunior Haynes MD CT ORDERABLES * CT HEAD WO CONTRAST - Head Trauma, CSF leak, mental status changes (05/01/2020 4:49 PM ASSISTED LIVING COORDINATOR) Anatomical Region Laterality Modality Head Computed Tomogra phy 05/02/2020 7:15 AM ASSISTED LIVING COORDINATOR Impressions 05/02/2020 8:36 AM ASSISTED LIVING COORDINATOR IMPRESSION: 1.No acute intracranial abnormality. 2.Evaluation of [...] at L4-5. Dictated by Hany Goodrich MD (Site Inspector) Dr. FLORINDA Cifuentes have personally reviewed and interpreted this examination/study. This report was electronically signed by FLORINDA CONDE on 05/02/2020 8:36 AM . Narrative 05/02/2020 8:36 AM ASSISTED LIVING COORDINATOR EXAMINATION: Computed tomography (CT) of the head [...] at L4-5. Dictated by Hany Goodrich MD (Site Inspector) I, Dr. FLORINDA CONDE have personally reviewed and interpreted this examination/study. This report was electronically signed by FLORINDA CONDE on 05/02/2020 8:36AM . Yunior Haynes MD CT ORDERABLES * XR PELVIS 1 OR 2VW (05/01/2020 3:47 PM ASSISTED LIVING COORDINATOR) Anatomical Region Laterality Modality Pelvis Radiographic Clair ging 05/01/2020 3:51 PM ASSISTED LIVING COORDINATOR Impressions 05/01/2020 3:52 PM ASSISTED LIVING COORDINATOR IMPRESSION: No acute findings. This report was electronically signed by FE JIMENEZ on 05/01/2020 3:52 PM . Narrative 05/01/2020 3:52 PM ASSISTED LIVING COORDINATOR EXAMINATION: XR PELVIS 1 OR 2VW HISTORY: [...] XR KNEE RIGHT 3VW (05/01/2020 3:47 PM ASSISTED LIVING COORDINATOR) Anatomical Region Laterality Modality Lower Extremity Radiographic Clair ging 05/01/2020 3:52 PM ASSISTED LIVING COORDINATOR Impressions 05/01/2020 3:54 PM ASSISTED LIVING COORDINATOR IMPRESSION: Suboptimal lateral imaging, with inability to exclude joint effusion or alignment alteration on the lateral view. No fracture appreciated. This report was electronically signed by FE JIMENEZ on 05/01/2020 3:54 PM . Narrative 05/01/2020 3:54 PM ASSISTED LIVING COORDINATOR EXAMINATION: XR KNEE RIGHT 3VW HISTORY: W19.XXXA: [...] CBC W AUTO DIFFERENTIAL (05/01/2020 3:18 PM ASSISTED LIVING COORDINATOR) WBC 6.0 3.5 - 10.5 10 3/uL 05/01/2020 3:29 PM [facility] RBC 3.72(L) 3.90 - 5.00 10 6/uL 05/01/2020 3:29 PM [facility] Hemoglobin 11.2(L) 12.0 - 15.5 g/dL 05/01/2020 3:29 PM [facility] Hematocrit 35.0 35.0 - 45.0 % 05/01/2020 3:29 PM [facility] MCV 94.1 81.0 - 97.0 fL 05/01/2020 3:29 PM [facility] MCH 30.1 28.0 - 34.0 pg 05/01/2020 3:29 PM [facility] MCHC 32.0 32.0 - 36.0 g/dL 05/01/2020 3:29 PM [facility] Platelet Count 206 150 - 400 10 3/uL 05/01/2020 3:29 PM [facility] RDW-SD 44.3 36.0 - 50.0 fL 05/01/2020 3:29 PM [facility] RDW-CV 12.9 11.2 - 14.8 % 05/01/2020 3:29 PM [facility] MPV 10.0 9.3 - 12.8 fL 05/01/2020 3:29 PM [facility] nRBC Absolute 0.00 0 10 3/uL 05/01/2020 3:29 PM [facility] nRBC Auto 0.0 0 /100 WBC 05/01/2020 3:29 PM [facility] Neutrophils % 61.0 35.0 - 70.0 % 05/01/2020 3:29 PM [facility] Lymphocytes % 26.1 19.7 - 55.1 % 05/01/2020 3:29 PM [facility] Monocytes % 9.5 3.0 - 15.0 % 05/01/2020 3:29 PM [facility] Eosinophils % 2.2 0.0 - 6.0 % 05/01/2020 3:29 PM [facility] Basophil % 1.0 0.0 - 1.5 % 05/01/2020 3:29 PM [facility] Neutrophils Absolute 3.7 1.6 - 7.0 10 3/uL 05/01/2020 3:29 PM [facility] Lymphocyte Absolute 1.6 0.8 - 2.9 10 3/uL 05/01/2020 3:29 PM [facility] Monocytes Absolute 0.57 0.14 - 0.66 10 3/uL 05/01/2020 3:29 PM [facility] Eosinophils Absolute 0.13 0.00 - 0.45 10 3/uL 05/01/2020 3:29 PM [facility] Basophils Absolute 0.06 0.00 - 0.06 10 3/uL 05/01/2020 3:29 PM [facility] Immature Granulocytes % 0.2 0.0 - 1.0 % 05/01/2020 3:29 PM [facility] Blood BLOOD SPECIMEN / Unknown Venipuncture / Unknown 05/01/2020 3:18 PM ASSISTED LIVING COORDINATOR 05/01/2020 3:23 PM ASSISTED LIVING COORDINATOR Yunior Haynes MD LAB - HEMATOLOGY [facility] [address] [place] [address], [facility] [phone] * (ABNORMAL) BASIC METABOLIC PANEL (CALCIUM TOTAL) (05/01/2020 3:18 PM ASSISTED LIVING COORDINATOR) BUN 47(H) 7 - 26 mg/dL 05/01/2020 3:50 PM [facility] Creatinine 1.9(H) 0.6 - 1.2 mg/dL 05/01/2020 3:50 PM [facility] Sodium 141 136 - 145 mmol/L 05/01/2020 3:50 PM [facility] Potassium 3.9 3.5 - 4.5 mmol/L 05/01/2020 3:50 PM [facility] Chloride 108(H) 98 - 107 mmol/L 05/01/2020 3:50 PM [facility] CO2 23 22 - 29 mmol/L 05/01/2020 3:50 PM [facility] Glucose 89 70 - 115 mg/dL 05/01/2020 3:50 PM [facility] Calcium 10.3(H) 8.4 - 10.2 mg/dL 05/01/2020 3:50 PM [facility] Anion Gap 14 8 - 18 05/01/2020 3:50 PM [facility] BUN/Creatinine Ratio 25(H) 7 - 23 05/01/2020 3:50 PM [facility] Osmolality Calculated 304(H) 270 - 300 mOsm/kg 05/01/2020 3:50 PM [facility] eGFR 26(L) >60 mL/min/1.7 3 m2 05/01/2020 3:50 PM [facility] Blood BLOOD SPECIMEN / Unknown Venipuncture / Unknown 05/01/2020 3:18 PM ASSISTED LIVING COORDINATOR 05/01/2020 3:23 PM ASSISTED LIVING COORDINATOR Yunior Haynes MD LAB - CHEMISTRY SHERRIE SINCLAIR [address] [address], [facility] [phone] * ALCOHOL ETHYL BLOOD (05/01/2020 3:18 PM ASSISTED LIVING COORDINATOR) Interpretation Ethanol None Detected None Detected mg/dL 05/01/2020 3:50 PM ASSISTED LIVING COORDINATOR [facility] Comment:Ethanol levels less than 10 mg/dL are resulted as None detected . Blood BLOOD SPECIMEN / Unknown Venipuncture / Unknown 05/01/2020 3:18 PM ASSISTED LIVING COORDINATOR 05/01/2020 3:23 PM ASSISTED LIVING COORDINATOR Yunior Haynes MD LAB - CHEMISTRY SHERRIE SINCLAIR Performing Organization Address [facility] Co de Phone Number [address] [address], [facility] [phone] * EKG 12-LEAD (05/01/2020 3:05 PM ASSISTED LIVING COORDINATOR) Ventricular Rate 60 BPM [facility] Atrial Rate 60 BPM [facility] P-R Interval 166 ms [facility] QRS Duration ms 80 ms [facility] M[facility] Q-T Interval ms 442 ms [facility] QTC Calculation (Bezet) 442 ms [facility] Calculated P [place] 61 degrees SL MUSE Calculated R [place] 2 degrees [facility] M[facility] Calculated T [place] 59 degrees [facility] Interpretation EKG NORMAL SINUS RHYTHM LOW VOLTAGE QRS POSSIBLE LATERAL INFARCT , AGE UNDETERMINED CANNOT RULE OUT INFERIOR INFARCT (CITED ON OR BEFORE 12-JUL-2000) ABNORMAL ECG WHEN COMPARED WITH ECG OF 13-JUL-2000 05:49, BORDERLINE CRITERIA FOR LATERAL INFARCT ARE NOW PRESENT Confirmed by fellow Jacek Finley ([id number]) on 05/02/2020 2:47:29 PM Confirmed by Nader Yeager ([id number]) on 05/20/2020 2:25:52 PM [facility] 05/01/2020 3:05 PM ASSISTED LIVING COORDINATOR 05/20/2020 2:25 PM ASSISTED LIVING COORDINATOR Yunior Haynes MD ECG ORDERABLES Performing Organization Address City/[facility]/ZIP Co de Phone Number [facility] Care Teams Rn Quality Relationship Specialty Start Date End Date Devyn Fry MD [address] [place] [address] PCP - General Family Medicine 06/14/23
--- OUTSIDE RECORDS SUMMARY | 2024-08-13 20:15 | XMS_ITS | Clinical Summary ---
Author Organization [facility] Address [address] [place] [address] Care Team Providers Care Ferruler Name Role Phone Devyn Fry MD Primary Care Provider [phone] Source Comments [facility],non-owned Affiliates and Associated Physician Practices is amultiple site organization consisting of ambulatory clinics and hospital sitesin [place], [place], [place] and [place]. This disclosure is being madepursuant to the Care Everywhere program and may not contain all information available regarding this patient. Last updated 18.[facility] Allergies Active Allergy Reactions Criticality Noted Date [...] Comments Blood Pressure 100/60 08/29/2023 11:38 AM RF TEST TECHNICIAN Pulse 64 08/29/2023 11:38 AM RF TEST TECHNICIAN Temperature 36.7 C (98 F) 05/01/2020 6:46 PM RF TEST TECHNICIAN Respiratory Rate 14 08/29/2023 11:38 AM RF TEST TECHNICIAN Oxygen Saturation 95% 08/29/2023 11:38 AM RF TEST TECHNICIAN Inhaled Oxygen Concentration - - Weight 74.4 kg (164 lb) 08/29/2023 11:38 AM RF TEST TECHNICIAN Height 160 cm (5' 3 ) 08/29/2023 11:38 AM RF TEST TECHNICIAN Body Mass Index 29.05 08/29/2023 11:38 AM RF TEST TECHNICIAN Plan of Treatment Health Maintenance Due [...] age to complete this topic Care Teams Ferruler Relationship Specialty Start Date End Date Devyn Fry MD [address] [place] [address] PCP - General Family Medicine 06/14/23
--- OUTSIDE RECORDS SUMMARY | 2024-08-13 20:15 | XMS_ITS | Referral Summary ---
Author Organization [facility] Address [address] [place] [address] Care Team Providers Care Prehemmer Name Role Phone Devyn Fry MD Primary Care Provider [phone] Source Comments [facility],non-owned Affiliates and Associated Physician Practices is amultiple site organization consisting of ambulatory clinics and hospital sitesin [place], [place], [place] and [place]. This disclosure is being madepursuant to the Care Everywhere program and may not contain all information available regarding this patient. Last updated 18.[facility] Allergies Active Allergy Reactions Criticality Noted Date [...] Comments Blood Pressure 100/60 08/29/2023 11:38 AM RAISER HELPER Pulse 64 08/29/2023 11:38 AM RAISER HELPER Temperature 36.7 C (98 F) 05/01/2020 6:46 PM RAISER HELPER Respiratory Rate 14 08/29/2023 11:38 AM RAISER HELPER Oxygen Saturation 95% 08/29/2023 11:38 AM RAISER HELPER Inhaled Oxygen Concentration - - Weight 74.4 kg (164 lb) 08/29/2023 11:38 AM RAISER HELPER Height 160 cm (5' 3 ) 08/29/2023 11:38 AM RAISER HELPER Body Mass Index 29.05 08/29/2023 11:38 AM RAISER HELPER Plan of Treatment Not on file Care Teams Prehemmer Relationship Specialty Start Date End Date Devyn Fry MD [address] [place] [address] PCP - General Family Medicine 06/14/23
--- OUTSIDE RECORDS SUMMARY | 2024-08-13 20:15 | XMS_ITS | Clinical Summary ---
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 (HCC) Take [...] artery disease of n ative artery of bois forte heart with stable angina pectoris 04/11/2024 Pancreatic cyst 12/22/2021 Overview (12/22/2021): Added automatically from request for surgery [id number] Encounters Date Type Department Care Team Description 08/07/2024 12:15 PM COLLEGE DEAN Office Visit [facility] [address] [place] [id number] Stented coronary artery 07/30/2024 10:30 AM COLLEGE DEAN Ancillary Procedure [facility] [address] [place] [address] Positional lightheadedness 07/24/2024 Telephone [facility] [address] [place] [address] Halie Cai NP 07/19/2024 11:00 AM COLLEGE DEAN Office Visit [facility] [address] [place] [address] [place] [phone] Halie Cai NP Positional lightheadedness (Primary Dx); Coronary artery disease involving bois forte coronary artery of bois forte heart without angina pectoris; Stage 3b chronic kidney disease (HCC) 07/03/2024 2:00 PM COLLEGE DEAN Office Visit [address] [place] [phone] Halie Cai NP Positional lightheadedness (Primary Dx); Stage 3b chronic kidney disease (HCC); Coronary artery disease involving bois forte coronary artery of bois forte heart without angina pectoris; Status post coronary angiogram; Presence of stent in coronary artery 06/29/2024 10:00 AM COLLEGE DEAN - 06/29/2024 11:30 AM COLLEGE DEAN Surgery [facility] [address] [place] [phone] Austin Richard MD RIGHT LEFT HEART CATHETERIZATION WITH CORONARY ANGIOGRAPHY GRAFT AND WITH OR WITHOUT LEFT VENTRICULOGRAPHY [id number] 06/29/2024 7:31 AM COLLEGE DEAN - 06/29/2024 5:12 PM COLLEGE DEAN Hospital Encounter [facility] [address] [place] [address] Austin Richard MD LÓPEZ (dyspnea on exertion); 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 (HCC) Discharge Disposition: Discharge to home or self care 05/23/2024 2:15 PM COLLEGE DEAN Office Visit [facility] [address] [place] [address] [place] [phone] Oz Cardona MD LÓPEZ (dyspnea on exertion) (Primary Dx); 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 (HCC); Essential hypertension; Hyperlipidemia LDL goal <70 05/23/2024 Telephone [facility] [address] [place] [address] [address] [place] [phone] Oz Cardona MD from Last 3 Months Surgical History Surgery Date Site/Laterality Comments APPENDECTOMY Appendectomy CHOLECYSTECTOMY Cholecystectomy COLON SURGERY 06/27/2018 - 06/26/2019 HYSTERECTOMY HERNIA REPAIR Medical History Medical History Date Comments Hx Other Medical hx Gout; Commen ts: [facility] 04/19/2014 - Chronic coronary artery disease Coronary artery disease Hypertension Hypertension Gastroesophageal reflux disease GERD Hx Other Medical hysterectomy wi th BSO; Comments: [facility] 04/19/2014 - Hx Other Medical breast biopsy-b enign; Comments: [facility] 04/19/2014 - Awareness under anesthesia [...] on file Legal Sex Female 7:57 AM COLLEGE DEAN Gender Identity Not on file Sexual Orientation Not on file Obstetrics History Last Filed Vital Signs Vital Sign Reading Time Taken Comments Blood Pressure 121/76 08/07/2024 12:00 PM COLLEGE DEAN Pulse 75 08/07/2024 12:00 PM COLLEGE DEAN Temperature 36.5 C (97.7 F) 06/29/2024 8:00 AM COLLEGE DEAN Respiratory Rate 18 08/07/2024 12:0 0 PM COLLEGE DEAN Oxygen Saturation 96% 08/07/2024 12: 00 PM COLLEGE DEAN Inhaled Oxygen Concentration - - Weight 78.4 kg (172 lb 12.8 oz) 025 12:00 PM COLLEGE DEAN Height 160 cm (5' 3 ) 08/07/2024 12:00 PM COLLEGE DEAN Body Mass Index 30.61 08/07/2024 12:00 PM COLLEGE DEAN Plan of Treatment Health Maintenance Due Date [...] 08/07/2025 08/07/2024 Medical Devices Implanted Type Area Multiple Resaw Operator Device Identifier Shelf Expiration Date Model / Serial / Lot Medtronic Card Vasc Surgery 3.0 X 18mm Marcelo Leavenworth Rx Coronary Stent [id number] - [id number] Implanted:Qty: 1 on 06/29/2024 by Austin Richard MD at [facility] Medtronic Card Vasc Surgery 03/01/2027 [id number] / / [id number] Reyes V[employer] System Closure Repair Femoral Artery Suture Mediated Perclose Prostyle 88362-19 - [id number] Implanted:Qty: 1 on 06/29/2024 by Austin Richard MD at [facility] [employer] 04/26/2026 [id number] / / [id number] Access Closure Inc Mynx Control 6-7fr 2 Mode Balloon Catheter Sealant Lock Syringe [id number] - [id number] Implanted:Qty: 1 on 06/29/2024 by Austin Richard MD at [facility] Right: Vein Access Closure Inc 03/01/2026 [id number] / / [id number] Procedures Procedure Name Priority Date/Time Associated Diagnosis Comments VASCULAR ACCESS US GUIDANCE Routine 06/29/2024 11:57 AM COLLEGE DEAN LÓPEZ (dyspnea on exertion) 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 (HCC) CORONARY OCT, 1ST VESSEL Routine 025 11:57 AM COLLEGE DEAN LÓPEZ (dyspnea on exertion) 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 (HCC) PERCUTANEOUS CORONARY LITHROTRIPSY W/ PCI (+) [id number] Routine 06/29/2024 11:57 AM COLLEGE DEAN LÓPEZ (dyspnea on exertion) 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 (HCC) ENRIQUE MAJOR CORONARY Routine 06/29/2024 11 :57 AM COLLEGE DEAN LÓPEZ (dyspnea on exertion) 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 (HCC) RIGHT LEFT HEART CATHETERIZATION CORONARY GRAFT WITH WITHOUT LEFT VENTRICULOGRAPHY ANGIOGRAM Routine 06/29/2024 11:57 AM COLLEGE DEAN LÓPEZ (dyspnea on exertion) 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 (HCC) POCT ACTIVATED CLOTTING TIME, HIGH RANGE Routine 06/29/2024 11:35 AM COLLEGE DEAN POCT ACTIVATED CLOTTING TIME, HIGH RANGE Routine 06/29/2024 11:14 AM COLLEGE DEAN MODERATE SEDATION SAME MD PETERSEN ADDL 15 MIN [id number] 06/29/2024 10:08 AM COLLEGE DEAN 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 (HCC) MODERATE SEDATION 06/29/2024 10: 08 AM COLLEGE DEAN 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 (HCC) EGFR STAT 06/29/2024 7:48 AM COLLEGE DEAN DIFFERENTIAL AUTO STAT 06/29/2024 7:4 8 AM COLLEGE DEAN CBC WITH AUTO DIFFERENTIAL STAT 06/29/2024 7:48 AM COLLEGE DEAN BASIC METABOLIC PANEL STAT 06/29/2024 7:48 AM COLLEGE DEAN from Last 3 Months Results * RIGHT LEFT HEART CATHETERIZATION CORONARY GRAFT WITH WITHOUT LEFT VENTRICULOGRAPHY ANGIOGRAM, ENRIQUE MAJOR CORONARY, PERCUTANEOUS CORONARY LITHROTRIPSY W/ PCI (+) [id number], CORONARY OCT, 1ST VESSEL, VASCULAR ACCESS US GUIDANCE (06/29/2024 11:57 AM COLLEGE DEAN) Anatomical Region Laterality Modality X-Ray Angiograph y Narrative 06/29/2024 12:25 PM COLLEGE DEAN CARDIAC CATHETERIZATION REPORT Jayce Mott IP ENCOUNTER: [id number] Date of Procedure: 06/29/2024 BIRTHDATE: 1950 REEL FILM INSPECTOR: Austin Richard MD REFERRING PHYSICIAN: Dr. Cardona [...] patient. Patient was then brought into the senior label specialist and was draped and prepped in the usual manner. Moderate sedation was given and the right groin was subcutaneously injected with 1% lidocaine. The right femoral vein was accessed using a 7 Luxembourgish sheath via micropuncture needle and modified Seldinger technique under ultrasound guidance. The right common femoral artery was accessed using a 5Fr sheath via a micropuncture needle and modified Seldinger technique under ultrasound guidance. A 7 Luxembourgish [place]-Nikky catheter was advanced into the right atrium, [...] stent underexpansion. A 3.0 x 18mm Marcelo Leavenworth ENRIQUE was deployed in the proximal RCA and post dilated with a 3.5 x 12mm NC balloon to high ryan with excellent angiographic results. Hemostasis was achieved with a Perclose device at the end of the procedure. CONCLUSIONS Successful IVUS guided and IVL shockwave assisted PCI to the proximal RCA ISR with a 3.0 x 18 Marcelo Leavenworth ENRIQUE; post dilated with a 3.5 x 12 NC balloon to high ryan with excellent angiographic results. PLAN Continue ASA 81mg PO daily Start clopidogrel 75mg PO daily Continue oral lasix and aggressive risk factor modification us Austin Richard MD CV CARDIAC CATH PROCEDURES Final Result * (ABNORMAL) POC Activated Clotting Time, High Range (06/29/2024 11:35 AM COLLEGE DEAN) Pathologist [facility] ACT 211(H) 87 - 138 sec Blood 06/29/2024 11:3 5 AM COLLEGE DEAN 06/29/2024 11:35 AM COLLEGE DEAN us Austin Richard MD LAB BLOOD ORDERABLES Final Resul t Performing Organization Address City/[facility] Co de Phone Number [facility] [address] [place] [address] * (ABNORMAL) POC Activated Clotting Time, High Range (06/29/2024 11:14 AM COLLEGE DEAN) Pathologist [facility] ACT 192(H) 87 - 138 sec Blood 06/29/2024 11:1 4 AM COLLEGE DEAN 06/29/2024 11:14 AM COLLEGE DEAN us Austin Richard MD LAB BLOOD ORDERABLES Final Resul t Performing Organization Address [facility] Co de Phone Number [facility] [address] [place] [address] * (ABNORMAL) eGFR (06/29/2024 7:48 AM COLLEGE DEAN) [facility] [address] eGFR 43(L) >=60 mL/min/1. 73 m2 Comment: [...] last reviewed 2021. Blood 06/29/2024 7:48 AM COLLEGE DEAN 06/29/2024 8:04 AM COLLEGE DEAN us Austin Richard MD LAB BLOOD ORDERABLES Final Resul t [facility] [address] [place] [address] * Differential, auto (06/29/2024 7:48 AM COLLEGE DEAN) Neutrophil abs 3.0 1.5 - 6.5 K/cumm Imm gran abs 0.0 0.0 - 0.1 K/cumm [facility] Lymphocyte abs 1.4 0.8 - 3.3 K/cumm [facility] Monocyte abs 0.6 0.2 - 0.8 K/cumm [facility] Eosinophil abs 0.1 0.0 - 0.5 K/cumm [facility] Basophil abs 0.1 0.0 - 0.1 K/cumm [facility] Neutrophil pct 58.1 % [facility] Comment: Interpretive Data Percent cell count [...] on 2017. Monocyte pct 11.5 % [facility] Comment: Interpretive Data Percent cell count reference ranges are not reported, since discordance with absolute values may lead to misinterpretation of CBC data. Current Interpretive Data was last revised on 2017. Eosinophil pct 2.7 % [facility] Comment: Interpretive Data Percent cell count reference ranges are not reported, since discordance with absolute values may lead to misinterpretation of CBC data. Current Interpretive Data was last revised on 2017. Basophil pct 1.1 % [facility] Comment: Interpretive Data Percent cell count reference ranges are not reported, since discordance with absolute values may lead to misinterpretation of CBC data. Current Interpretive Data was last revised on 2017. Blood 06/29/2024 7:48 AM COLLEGE DEAN 06/29/2024 8:03 AM COLLEGE DEAN us Austin Richard MD LAB BLOOD ORDERABLES Final Resul t [facility] [id number] [place] [address] * (ABNORMAL) CBC with auto differential (06/29/2024 7:48 AM COLLEGE DEAN) WBC 5.2 3.8 - 9.9 K/cumm Hgb 10.1(L) 11.9 - 15.5 g/dL [facility] Hct 33.6(L) 35.6 - 45.5 % [facility] Plt 243 150 - 400 K/cumm [facility] MPV 10.0 9.1 - 12.3 fL [facility] RBC 3.44(L) 3.90 - 5.20 M/cumm [facility] MCV 97.7(H) 81.3 - 96.4 fL [facility] MCH 29.4 27.1 - 33.3 pg [facility] MCHC 30.1(L) 32.3 - 35.7 g/dL [facility] RDW CV 15.0(H) 11.1 - 14.9 % [facility] RDW SD 53.4(H) 35.7 - 48.1 fL [facility] NRBC abs 0.00 0.00 - 0.01 K/cumm [facility] Blood 06/29/2024 7:48 AM COLLEGE DEAN 06/29/2024 8:03 AM COLLEGE DEAN Narrative [facility] - 06/29/2024 8:08 AM COLLEGE DEAN If most recent labs were drawn prior to 4 AM, draw only prior to initiating procedure. Austin Richard MD LAB BLOOD ORDERABLES Final Resul t Performing Organization Address City/[facility]/ZIP Co de Phone Number [facility] [address] [place] [address] * (ABNORMAL) Basic metabolic panel (06/29/2024 7:48 AM COLLEGE DEAN) Pathologist [facility] Sodium 141 135 - 145 mmol/L Potassium, pl 4.4 3.3 - 4.9 mmol/L [facility] Chloride 111(H) 97 - 110 mmol/L [facility] CO2 20(L) 22 - 32 mmol/L [facility] Anion gap 10 2 - 15 mmol/L [facility] BUN 23 6 - 25 mg/dL [facility] Creatinine 1.31(H) 0.60 - 1.10 mg/dL [facility] Glucose 78 70 - 199 mg/dL [facility] Comment: Interpretive Data Fasting glucose >/= [...] 2022. Calcium 10.1 8.5 - 10.3 mg/dL [facility] Blood 06/29/2024 7:48 AM COLLEGE DEAN 06/29/2024 8:04 AM COLLEGE DEAN Austin Richard MD LAB BLOOD ORDERABLES Final Resul t [facility] [address] [place] [address] from Last 3 Months Insurance [employer] MEDICARE MED[employer] Member Subscriber Plan / Payer (Ef fective 2014-Present) Name:Jayce Mott Relation to Subscriber:Self Name:Jayce Mott Payer ID:[id number] Group ID:Not on file Type:COMMERCIAL Address: [facility] [address] MEDICARE [employer] Member Subscriber Plan / Payer (Ef fective 2014-Present) Name:Jayce Mott Relation to Subscriber:Self Name:Jayce Mott Payer ID:[id number] Group ID:Not on file Type:COMMERCIAL Address: [facility] [address] Advance Directives For more information, please contact: [phone] * Full Code (Latest Code Status on File) Date Activated Date Inactivated Comments 06/29/2024 1:58 PM 06/29/2024 9:12 PM * Full Code Date Activated Date Inactivated Comments 01/15/2022 8:39 AM 01/15/2022 2:41 PM Care Teams Cigar Packer Relationship Specialty Start Date End Date Devyn Fry MD [address] [place] [address] PCP - General Family Medicine 04/11/24
[2024-08-13 20:58] VITALS: BP 127/77; BP 152/81; PULSE 74; PULSE 75
[2024-08-13 20:59] VITALS: BP 94/62; PULSE 77
[2024-08-13] MEDS: SODIUM CHLORIDE 0.9% IV 500 ML 999 ML IV CONT (21:20)
[2024-08-13 22:49] VITALS: BMI 30.4
[2024-08-13 23:34] VITALS: BP 163/79; PULSE 82; RESP 20; TEMP 36.6; O2SAT 100
--- NOTE | 2024-08-13 23:41 | ADMGEN ---
This patient, Hui Dominguez, was admitted to 2 Medical Room 260-. Patient/family oriented to hospital policies and general routines including ID bracelet, bed and alarms, visiting hours, pain management, procedures, bathroom and other care routines, personal items, smoking policy, room service/diet, and visiting hours. Information on how to activate the Rapid Response Team has been discussed. Patient/Family are encouraged to report perceived risks to care and to ask questions if they do not understand what they are told or what they should do.
[2024-08-14] VITALS (9 sets, daily range): BP systolic 110–140; BP diastolic 53–72; PULSE 80–112; RESP 18–20; TEMP 36.7–36.8; O2SAT 95–100
--- NOTE | 2024-08-14 08:09 | PM.IMHP ---
H&P: HPI History of Present Illness Date/Time: 08/14/24 08:09 Chief Complaint: weakness, chest congestion Narrative: 73 y.o female with PMH/o CHF, CAD, CKD admitted for weakness, Flu, worsening cough. She had multiple falls in the last few days- last time she felt liek she was going to pass out. She recently battled with URI.sinus infection. IN ED: no fever, wbc wnl, hemoglobin 10.2 which is similar to her baseline. INR is 1.0. Cr 1.57 close to her baseline. BNP is elevated at 1780. Positive for influenza A. Chest x-ray showed no acute cardiopulmonary abnormality. Head CT is pending. Patient was orthostatic in the emergency department. Patient did not tolerate standing very well patient while in ED- was given a small bolus of IV fluids. Patient was started on Tamiflu. She reports that she had stents last year at [facility], on asa and plavix. Following with content designer. Also states that she had been very weak- lately, no blood in urine/stool, appetite is good. Review of Systems Review of Systems: All systems reviewed & are unremarkable except as noted in HPI and below PMFSH Past Medical History Medical History (Updated 08/14/24 @ 10:48 by Thelma Dahl APRN) Irritable bowel syndrome with diarrhea Nausea and vomiting Abdominal pain History of colon cancer History of heart attack 1999 Hyperlipidemia Hypertension CHF (congestive heart failure) TIA (transient ischemic attack) CVA (cerebral vascular accident) Coronary artery disease Colon cancer Surgical History Surgical History History of hysterectomy History of cholecystectomy History of appendectomy History of coronary artery stent placement History of colon resection Family History Family History Father Family history of heart disease in male family member before age 55 Cancer, bladder, neck Social History Social History Smoking packs per day: 1 Smoking cigarettes per day: 20.0 Years smoked: 30 Smoking pack-years: 30.00 Smoking status: Former smoker Tobacco type: cigarettes Second hand tobacco smoke exposure: No Smoking end date: 06/27/12 Alcohol intake: never Substance use: never Substance use type: does not use Do You Feel Safe in your Home?: Yes Lack of Transportation: No Lack of Food: Never True Current Housing: I Have Housing Concerned About Future Housing: No Difficulty Paying Gas/Electric Bills: No Difficulty Paying for Meds: No Currently Unemployed: No Education: High School Diploma/GED Difficulty w/ Childcare or Family Care: No Living arrangements: with family Gender identity (if verbalized by the patient): Female Sexual Orientation (if Verbalized by the Patient): Straight or Heterosexual Spiritual care concerns: No Agree to blood products: Yes Meds Home Medications and Allergies Home Medications ?Medication ?Instructions ?Recorded ?Confirmed ?Type furosemide 20 mg tablet (Lasix) 20 mg PO DAILY 07/13/19 08/14/24 History omeprazole 40 mg capsule,delayed 40 mg PO DAILY 07/13/19 08/14/24 History release valsartan 40 mg tablet 40 mg PO QPM 07/13/19 08/14/24 History allopurinol 300 mg tablet 300 mg PO DAILY 03/20/24 08/13/24 History coenzyme Q10 75 mg capsule (Ultra 75 mg PO DAILY 03/20/24 08/14/24 History CoQ10) cyclobenzaprine 10 mg tablet 10 mg PO TID 03/20/24 08/14/24 History melatonin 10 mg capsule 10 mg PO QHS 03/20/24 08/14/24 History potassium citrate 99 mg capsule 99 mg PO DAILY 03/20/24 08/14/24 History sour ruffin extract 1,000 mg 1,000 mg PO DAILY 03/20/24 08/14/24 History capsule (Tart Ruffin Extract) atorvastatin 20 mg tablet 20 mg PO DAILY 06/18/24 08/14/24 History aspirin 81 mg tablet,delayed 81 mg PO DAILY 08/13/24 08/13/24 History release cefdinir 300 mg capsule 300 mg PO Q12H 08/13/24 08/13/24 History clopidogrel 75 mg tablet 75 mg PO DAILY 08/13/24 08/13/24 History Allergies Allergy/AdvReac Type Severity Reaction Status Date / Time fenofibrate Allergy Intermediate ITCHING, Verified 08/13/24 15:30 HIVES ciprofloxacin Allergy Unknown Unknown Verified 08/13/24 15:30 Penicillins Allergy Unknown Unknown Verified 08/13/24 15:30 Vital Signs Vital Signs - 24 hr 08/13/24 15:18 08/13/24 20:58 08/13/24 20:58 Temperature 97.5 F L Pulse Rate 78 75 74 Respiratory Rate 17 Blood Pressure 114/68 152/81 H 127/77 Pulse Oximetry 95 Oxygen Delivery Room Air 08/13/24 20:59 08/13/24 23:34 08/13/24 23:51 Temperature 97.8 F Pulse Rate 77 82 Respiratory Rate 20 Blood Pressure 94/62 L 163/79 H Pulse Oximetry 100 Oxygen Delivery Room Air 08/14/24 00:08 08/14/24 04:00 08/14/24 05:17 Temperature 98.0 F Pulse Rate 80 104 H 95 Respiratory Rate 20 Blood Pressure 140/72 Pulse Oximetry 100 Oxygen Delivery Exam Const: General: comfortable Resp: Effort & Inspection: normal respiratory effort Auscultation: diminished lung sounds Cardio: Rate: regular rate Rhythm: regular rhythm GI: GI Palp: Yes Soft to palpation Auscultation: normal bowel sounds Skin: General skin exam: normal color Neuro: Speech: normal speech Sensory Exam: normal sensation Extrem: General: normal to inspection Psych: Affect: normal affect H&P: Results Labs Labs: Short CBC 08/13/24 Range/Units 17:50 WBC 4.8 (4.5-10.0) K/mm3 Hgb 10.2 L (12.0-15.0) g/dL Hct 33.2 L (37.0-47.0) % Plt Count 219 (150-375) k/mm3 BMP 08/13/24 17:50 Sodium 139 Potassium 3.4 Chloride 107 Carbon Dioxide 21 L BUN 27 H D Creatinine 1.57 H Glucose 90 Calcium 10.4 H Cardiac Enzymes 08/13/24 Range/Units 17:50 Troponin I 0.015 (0.000-0.034) ng/mL Liver Function 08/13/24 Range/Units 17:50 Total Bilirubin 0.4 (0.2-1.3) mg/dL AST 44 H (14-36) U/L ALT 27 (6-35) U/L Alkaline Phosphatase 117 (38-126) U/L Albumin 3.9 (3.5-5.1) g/dL Assessment and Plan Assessment and plan (1) Orthostatic hypotension: Code(s): I95.1 - Orthostatic hypotension Status: Acute (2) Coronary artery disease: Qualifiers: Coronary Disease-Associated Artery/Lesion type: unspecified vessel or lesion type [place] vs. transplanted heart: [place] heart Associated angina: without angina Qualified Code(s): I25.10 - Atherosclerotic heart disease of [place] coronary artery without angina pectoris Code(s): I25.10 - Atherosclerotic heart disease of [place] coronary artery without angina pectoris Status: Chronic (3) Influenza A: Code(s): J10.1 - Influenza due to other identified influenza virus with other respiratory manifestations Status: Acute Plan 73 y.o female with PMH/o CHF, CAD, CKD admitted for weakness, Flu, worsening cough. She had multiple falls in the last few days- last time she felt like she was going to pass out. She recently battled with URI.sinus infection. IN ED: no fever, wbc wnl, hemoglobin 10.2 which is similar to her baseline. INR is 1.0. Cr 1.57 close to her baseline. BNP is elevated at 1780. Positive for influenza A. Chest x-ray showed no acute cardiopulmonary abnormality. Head CT is negative. Patient was orthostatic in the emergency department- was given a small bolus of IV fluids. Gently hydrating now- 1000 ml 0.9 ns at 100 ml/h. Patient was started on Tamiflu-continue that She reports that she had stents last year at [facility], on asa and plavix. Will continue that. Daily labs. IS, PT/OT Quality VTE Prophylaxis VTE prophylaxis: mechanical ordered
[2024-08-14] MEDS: OSELTAMIVIR PHOSPHATE 30 MG CAPSULE PO (09:49)
[2024-08-14] MEDS: SODIUM CHLORIDE 0.9% IV 1,000 ML 100 ML IV CONT (11:47)
[2024-08-14] MEDS: CYCLOBENZAPRINE HCL 10 MG TABLET PO ×2 (11:47→18:04)
[2024-08-14] MEDS: VALSARTAN 40 MG TABLET PO (18:04)
[2024-08-14] MEDS: PANTOPRAZOLE 40 MG TABLET PO (20:03)
[2024-08-14] MEDS: MELATONIN 5 MG TABLET 10 MG PO (20:03)
[2024-08-15] VITALS (15 sets, daily range): BP systolic 64–115; BP diastolic 44–56; PULSE 63–112; RESP 12–20; TEMP 36.5–37.9; O2SAT 90–100
[2024-08-15 06:22] LABS: Hematocrit 29.5 % (37.0-47.0); Hemoglobin 8.9 g/dL (12.0-15.0); Mean Corpuscular HGB Conc 30.2 g/dl (32-36); Mean Corpuscular Hemoglobin 27.6 pg (26-34); Mean Corpuscular Volume 91.3 fl (80-100); Mean Platelet Volume 10.1 fl (7.4-10.4); Platelet Count Result 189 k/mm3 (150-375); Red Blood Count 3.23 M/mm3 (4.2-5.4); Red Cell Distribution Width 14.2 % (11.5-14.5); White Blood Count 2.7 K/mm3 (4.5-10.0)
[2024-08-15 06:33] LABS: Anion Gap 11 mmol/L (4-12); Blood Urea Nitrogen 25 mg/dL (7-17); Calcium 9.7 mg/dL (8.4-10.2); Carbon Dioxide 18 mmol/L (22-30); Chloride 111 mmol/L (98-107); Estimated CRCL calculation 32 ml/min; Estimated Glomerular Filt Rate 38; Glucose 81 mg/dL (65-110); Sodium 140 mmol/L (137-145)
[2024-08-15] MEDS: OSELTAMIVIR PHOSPHATE 30 MG CAPSULE PO (08:52)
[2024-08-15] MEDS: PANTOPRAZOLE 40 MG TABLET PO ×2 (08:53→20:03)
[2024-08-15] MEDS: ASPIRIN 81 MG ENTERIC TABLET PO (08:53)
[2024-08-15] MEDS: ATORVASTATIN 20 MG TABLET PO (08:53)
[2024-08-15] MEDS: CYCLOBENZAPRINE HCL 10 MG TABLET PO ×3 (08:53→16:49)
[2024-08-15] MEDS: FUROSEMIDE 20 MG TABLET PO (08:53)
[2024-08-15] MEDS: CLOPIDOGREL BISULFATE 75 MG TABLET PO (08:53)
[2024-08-15] MEDS: allopurinoL 300 MG TABLET PO (08:53)
--- NOTE | 2024-08-15 10:37 | PM.IMPN ---
Progress Note: A&P Assessment and Plan (1) Orthostatic hypotension: Code(s): I95.1 - Orthostatic hypotension Status: Acute Assessment and Plan: - Positive orthostatic on admission, monitor q shift - s/p 1L bolus and maintenance fluids which have since been DC. She continues to be orthostatic will give another 1L at 100 ml/hr. - Rosalino roberson ordered - Continue telemetry - Holding valsartan - Head CT: no acute intracranial process - Chest XR: no acute cardiopulmonary disease - PT/OT (2) Influenza A: Code(s): J10.1 - Influenza due to other identified influenza virus with other respiratory manifestations Status: Acute Assessment and Plan: - tested positive for influenza A on viral panel - Chest XR: no acute cardiopulmonary disease - Tamiflu started on 08/14 - currently not requiring supplemental O2 (3) Coronary artery disease: Qualifiers: Associated angina: without angina Coronary Disease-Associated Artery/Lesion type: unspecified vessel or lesion type [place] vs. transplanted heart: [place] heart Qualified Code(s): I25.10 - Atherosclerotic heart disease of [place] coronary artery without angina pectoris Code(s): I25.10 - Atherosclerotic heart disease of [place] coronary artery without angina pectoris Status: Chronic Assessment and Plan: Chronic, continue home medications (4) Chronic kidney disease, stage 3b: Code(s): N18.32 - Chronic kidney disease, stage 3b Status: Acute Assessment and Plan: BUN/Cr 27/1.57 with GFR 32 on admission, appears around baseline. - BUN/Cr 25/1.35 on am labs - Renally dose medications - Avoid nephrotoxic medications (5) Anemia: Qualifiers: Anemia type: unspecified type Qualified Code(s): D64.9 - Anemia, unspecified Code(s): D64.9 - Anemia, unspecified Status: Acute Assessment and Plan: H/H 10.2/33.2 on admission. Appears around baseline. - H/H 8.9/29.5 on am labs, likely dilutional as patient received 1L bolus and was started on maintenance fluids - Iron panel low on 08/08/24, started on iron supplementation - B12 and folate WNL on 08/08/24 - No signs of active bleeding - Monitor Time Spent With Patient Time with patient: 25 - 35 minutes Subjective Date/time seen: 08/15/24 10:37 Interval history: 73 y.o female with past medical history of CHF, CAD, and CKD who presents to the hospital for weakness, Flu, worsening cough, and multiple falls in the last few days. Patient is pleasant lying comfortably in bed. She continues to have orthostatic hypotension with blood pressures dropping to the 70s systolic with standing. Patient is symptomatic at that time endorsing dizziness/lightheadedness and palpitations which quickly resolve whenever she lies back down. She has no other complaints denies chest pain, shortness a breath, nausea/vomiting, and abdominal pain. Review of Systems Review of Systems: All systems reviewed & are unremarkable except as noted in HPI and below Exam Narrative: AF HR 97 RR 12 Spo2 97 BP 110/53 General: female in no acute respiratory distress who is nontoxic appearing, lying semi recumbent in bed. HEENT: Normocephalic. Atraumatic. Extraocular movement intact. Sclera clear and anicteric. No facial asymmetry. Chest: Lungs are clear to auscultation bilaterally. No wheezes or crackles. CV: Heart was regular rate and rhythm. S1-S2. No murmurs, gallops, or rubs. Abd: Abdomen was soft. Nontender. Nondistended. Positive bowel sounds. No organomegaly or masses. Ext: No clubbing, cyanosis, or edema. 2+ DP pulses bilaterally. Neuro: Patient is alert and oriented x4. Speech is clear. Objective Data Vital Signs Vital Signs: Vital Signs - 24 hr 08/14/24 12:00 08/14/24 14:00 08/14/24 16:00 Temperature 98.2 F Pulse Rate 87 88 89 Respiratory Rate 18 Blood Pressure 137/68 Pulse Oximetry 96 Oxygen Delivery 08/14/24 20:00 08/14/24 20:00 08/14/24 21:42 Temperature 98.3 F Pulse Rate 112 H 84 Respiratory Rate 18 Blood Pressure 110/53 L Pulse Oximetry 95 Oxygen Delivery Room Air 08/15/24 00:00 08/15/24 04:00 08/15/24 04:07 Temperature 97.7 F Pulse Rate 93 80 83 Respiratory Rate 20 Blood Pressure 115/51 L Pulse Oximetry 97 Oxygen Delivery 08/15/24 08:58 Temperature Pulse Rate Respiratory Rate Blood Pressure Pulse Oximetry 99 Oxygen Delivery Room Air Intake/Output Intake/Output: Intake & Output 02/1608/13/24 08/14/24 08/15/24 23:59 23:59 23:59 23:59 Intake Total 500 2039 240 Output Total 1 1 Balance 500 2038 239 Meds/Results Medications: Active Medications Generic Name Dose Route Start Last Admin Trade Name Brianq PRN Reason Stop Dose Admin Allopurinol 300 mg 08/15/24 09:00 08/15/24 08:53 Allopurinol 300 Mg Tablet PO 300 mg DAILY MURRAY Administration Aspirin 81 mg 08/15/24 09:00 08/15/24 08:53 Aspirin 81 Mg Enteric Tablet PO 81 mg DAILY MURRAY Administration Atorvastatin Calcium 20 mg 08/15/24 09:00 08/15/24 08:53 Atorvastatin 20 Mg Tablet PO 20 mg DAILY MURRAY Administration Clopidogrel Bisulfate 75 mg 08/15/24 09:00 08/15/24 08:53 Clopidogrel Bisulfate 75 Mg Tablet PO 75 mg DAILY MURRAY Administration Cyclobenzaprine HCl 10 mg 08/14/24 13:00 08/15/24 08:53 Cyclobenzaprine Hcl 10 Mg Tablet PO 10 mg TID MURRAY Administration Furosemide 20 mg 08/15/24 09:00 08/15/24 08:53 Furosemide 20 Mg Tablet PO 20 mg DAILY MURRAY Administration Melatonin 10 mg 08/14/24 21:00 08/14/24 20:03 Melatonin 5 Mg Tablet PO 10 mg QHS MURRAY Administration Nonformulary 1 each 08/14/24 10:45 Nutritional XX 08/15/24 10:44 Supplement-Coenzyme PRN PRN Q10 PROTOCOL Oseltamivir Phosphate 30 mg 08/14/24 09:00 08/15/24 08:52 Oseltamivir Phosphate 30 Mg Capsule PO 08/19/24 08:59 30 mg DAILY MURRAY Administration Pantoprazole Sodium 40 mg 08/14/24 21:00 08/15/24 08:53 Pantoprazole 40 Mg Tablet PO 40 mg Q12HR MURRAY Administration Valsartan 40 mg 08/14/24 18:00 08/14/24 18:04 Valsartan 40 Mg Tablet PO 40 mg QPM MURRAY Administration Radiology Results: ITS Impressions Chest X-Ray 08/13/24 16:43 IMPRESSION: 1. No acute cardiopulmonary disease. Head CT 08/13/24 21:14 IMPRESSION: No acute intracranial process. Labs Labs: Laboratory Results - last 24 hr 08/15/24 05:50 WBC 2.7 L RBC 3.23 L Hgb 8.9 L Hct 29.5 L MCV 91.3 MCH 27.6 MCHC 30.2 L RDW 14.2 Plt Count 189 MPV 10.1 Sodium 140 Potassium 3.0 L Chloride 111 H Carbon Dioxide 18 L Anion Gap 11 BUN 25 H Creatinine 1.35 H Estim Creat Clear Calc 32 Estimated GFR 38 L Glucose 81 Calcium 9.7 Quality VTE Prophylaxis VTE prophylaxis: pharmacologic ordered
[2024-08-15] MEDS: FERROUS SULFATE 325 MG TABLET DR PO (16:49)
[2024-08-15] MEDS: SODIUM CHLORIDE 0.9% IV 1,000 ML 100 ML IV CONT (17:31)
[2024-08-15] MEDS: MELATONIN 5 MG TABLET 10 MG PO (20:03)
[2024-08-15] MEDS: BENZOCAINE/MENTHOL (*BKC) 18 EA LOZENGE 1 LOZENGE PO (21:01)
[2024-08-15] MEDS: BENZONATATE 100 MG CAPSULE 200 MG PO (21:01)
[2024-08-16] VITALS (15 sets, daily range): BP systolic 95–153; BP diastolic 51–72; PULSE 67–101; RESP 18–20; TEMP 36.2–36.8; O2SAT 97–100
[2024-08-16] MEDS: BENZONATATE 100 MG CAPSULE 200 MG PO ×3 (04:59→21:06)
[2024-08-16 06:22] LABS: Hematocrit 28.6 % (37.0-47.0); Hemoglobin 8.5 g/dL (12.0-15.0); Mean Corpuscular HGB Conc 29.7 g/dl (32-36); Mean Corpuscular Hemoglobin 27.4 pg (26-34); Mean Corpuscular Volume 92.3 fl (80-100); Mean Platelet Volume 10.5 fl (7.4-10.4); Platelet Count Result 179 k/mm3 (150-375); Red Cell Distribution Width 14.4 % (11.5-14.5)
[2024-08-16 06:37] LABS: Anion Gap 7 mmol/L (4-12); Blood Urea Nitrogen 27 mg/dL (7-17); Calcium 9.6 mg/dL (8.4-10.2); Carbon Dioxide 21 mmol/L (22-30); Chloride 112 mmol/L (98-107); Estimated CRCL calculation 27 ml/min; Estimated Glomerular Filt Rate 31; Glucose 86 mg/dL (65-110); Potassium 3.4 mmol/L (3.4-5.0); Sodium 140 mmol/L (137-145)
--- NOTE | 2024-08-16 08:34 | PM.IMPN ---
Progress Note: A&P Assessment and Plan (1) Orthostatic hypotension: Code(s): I95.1 - Orthostatic hypotension Status: Acute Assessment and Plan: - Positive orthostatic on admission, monitor q shift - s/p 1L bolus and maintenance fluids which have since been DC. She continues to be orthostatic will give another 1L at 100 ml/hr. - Rosalino roberson ordered - Continue telemetry - Holding valsartan - Head CT: no acute intracranial process - Chest XR: no acute cardiopulmonary disease - PT/OT 08/16: Patient is now having blood pressures with systolics in the 150s however orthostatics remain positive. She denies any dizziness or lightheadedness at that time. Will hold on starting midodrine as patient is having hypertension and do not want to further elevate this pressure. Will continue to monitor. (2) Influenza A: Code(s): J10.1 - Influenza due to other identified influenza virus with other respiratory manifestations Status: Acute Assessment and Plan: - tested positive for influenza A on viral panel - Chest XR: no acute cardiopulmonary disease - Tamiflu started on 08/14 - currently not requiring supplemental O2 08/16: Patient had a mild fever overnight possibly due to flu, however will obtain blood cultures to further assess. Patient is also noted to have leukopenia on labs. (3) Coronary artery disease: Qualifiers: Associated angina: without angina Coronary Disease-Associated Artery/Lesion type: unspecified vessel or lesion type [place] vs. transplanted heart: [place] heart Qualified Code(s): I25.10 - Atherosclerotic heart disease of [place] coronary artery without angina pectoris Code(s): I25.10 - Atherosclerotic heart disease of [place] coronary artery without angina pectoris Status: Chronic Assessment and Plan: Chronic, continue home medications (4) Chronic kidney disease, stage 3b: Code(s): N18.32 - Chronic kidney disease, stage 3b Status: Acute Assessment and Plan: BUN/Cr 27/1.57 with GFR 32 on admission, appears around baseline. - BUN/Cr 27/1.64 on am labs - Renally dose medications - Avoid nephrotoxic medications (5) Anemia: Qualifiers: Anemia type: unspecified type Qualified Code(s): D64.9 - Anemia, unspecified Code(s): D64.9 - Anemia, unspecified Status: Acute Assessment and Plan: H/H 10.2/33.2 on admission. Appears around baseline. - H/H 8.5/28.6 on am labs, likely dilutional as patient received 1L bolus and was started on maintenance fluids - Iron panel low on 08/08/24, started on iron supplementation - B12 and folate WNL on 08/08/24 - No signs of active bleeding - Monitor Subjective Date/time seen: 08/16/24 08:34 Interval history: 73 y.o female with past medical history of CHF, CAD, and CKD who presents to the hospital for weakness, Flu, worsening cough, and multiple falls in the last few days. Patient is pleasant lying in bed with family at bedside. She has no complaints denying chest pain, shortness of breath, palpitations, nausea/vomiting and abdominal pain. Patient is now having blood pressures with systolics in the 150s however orthostatics remain positive. She denies any dizziness or lightheadedness at that time. Will hold on starting midodrine as patient is having hypertension and do not want to further elevate this pressure. Will continue to monitor. Review of Systems Review of Systems: All systems reviewed & are unremarkable except as noted in HPI and below Exam Narrative: AF HR 72 RR 18 SpO2 97 BP 128/57 General: female in no acute respiratory distress who is nontoxic appearing, lying semi recumbent in bed. HEENT: Normocephalic. Atraumatic. Extraocular movement intact. Sclera clear and anicteric. No facial asymmetry. Chest: Lungs are clear to auscultation bilaterally. No wheezes or crackles. CV: Heart was regular rate and rhythm. S1-S2. No murmurs, gallops, or rubs. Abd: Abdomen was soft. Nontender. Nondistended. Positive bowel sounds. No organomegaly or masses. Ext: No clubbing, cyanosis, or edema. 2+ DP pulses bilaterally. Neuro: Patient is alert and oriented x4. Speech is clear. Objective Data Vital Signs Vital Signs: Vital Signs - 24 hr 08/15/24 08:58 08/15/24 12:00 08/15/24 12:56 Temperature Pulse Rate 95 Respiratory Rate Blood Pressure Pulse Oximetry 99 Pulse Oximetry [With Activity During Therapy Session] 100 Oxygen Delivery Room Air Room Air 08/15/24 14:00 08/15/24 14:00 08/15/24 15:09 Temperature 98.3 F Pulse Rate 92 92 97 Respiratory Rate 12 12 12 Blood Pressure 99/52 L 110/53 L Pulse Oximetry 99 99 97 Pulse Oximetry [With Activity During Therapy Session] Oxygen Delivery 08/15/24 15:10 08/15/24 16:00 08/15/24 20:00 Temperature Pulse Rate 112 H 84 Respiratory Rate 12 Blood Pressure 71/53 L Pulse Oximetry 90 Pulse Oximetry [With Activity During Therapy Session] Oxygen Delivery Room Air 08/15/24 20:00 08/15/24 20:30 08/15/24 20:30 Temperature 100.3 F H Pulse Rate 79 82 82 Respiratory Rate 18 Blood Pressure 98/55 L 98/55 L Pulse Oximetry 96 Pulse Oximetry [With Activity During Therapy Session] Oxygen Delivery 08/15/24 20:33 08/15/24 20:36 08/16/24 00:00 Temperature Pulse Rate 81 63 71 Respiratory Rate Blood Pressure 87/56 L 64/44 L Pulse Oximetry Pulse Oximetry [With Activity During Therapy Session] Oxygen Delivery 08/16/24 04:00 08/16/24 05:45 Temperature 97.2 F L Pulse Rate 75 72 Respiratory Rate 18 Blood Pressure 124/63 Pulse Oximetry 99 Pulse Oximetry [With Activity During Therapy Session] Oxygen Delivery Intake/Output Intake/Output: Intake & Output 08/13/24 08/14/24 08/15/24 08/16/24 23:59 23:59 23:59 23:59 Intake Total 500 2040 1790 450 Output Total 1 1 Balance 500 2039 1789 450 Meds/Results Medications: Active Medications Generic Name Dose Route Start Last Admin Trade Name Freq PRN Reason Stop Dose Admin Allopurinol 300 mg 08/15/24 09:00 08/15/24 08:53 Allopurinol 300 Mg Tablet PO 300 mg DAILY MURRAY Administration Aspirin 81 mg 08/15/24 09:00 08/15/24 08:53 Aspirin 81 Mg Enteric Tablet PO 81 mg DAILY MURRAY Administration Atorvastatin Calcium 20 mg 08/15/24 09:00 08/15/24 08:53 Atorvastatin 20 Mg Tablet PO 20 mg DAILY MURRAY Administration Benzocaine 1 lozenge 08/15/24 20:25 08/15/24 21:01 Benzocaine/Menthol (*Bkc) 18 Ea Lozenge PO 1 lozenge PRN PRN Administration Sore Throat/Cough Benzonatate 200 mg 08/15/24 22:00 08/16/24 04:59 Benzonatate 100 Mg Capsule PO 200 mg Q8HR MURRAY Administration Clopidogrel Bisulfate 75 mg 08/15/24 09:00 08/15/24 08:53 Clopidogrel Bisulfate 75 Mg Tablet PO 75 mg DAILY MURRAY Administration Cyclobenzaprine HCl 10 mg 08/14/24 13:00 08/15/24 16:49 Cyclobenzaprine Hcl 10 Mg Tablet PO 10 mg TID MURRAY Administration Ferrous Sulfate 325 mg 08/15/24 17:00 08/15/24 16:49 Ferrous Sulfate [address] PO 325 mg BID MURRAY Administration Furosemide 20 mg 08/15/24 09:00 08/15/24 08:53 Furosemide 20 Mg Tablet PO 20 mg DAILY MURRAY Administration Melatonin 10 mg 08/14/24 21:00 08/15/24 20:03 Melatonin 5 Mg Tablet PO 10 mg QHS MURRAY Administration Oseltamivir Phosphate 30 mg 08/14/24 09:00 08/15/24 08:52 Oseltamivir Phosphate 30 Mg Capsule PO 08/19/24 08:59 30 mg DAILY MURRAY Administration Pantoprazole Sodium 40 mg 08/14/24 21:00 08/15/24 20:03 Pantoprazole 40 Mg Tablet PO 40 mg Q12HR MURRAY Administration Valsartan 40 mg 08/14/24 18:00 08/14/24 18:04 Valsartan 40 Mg Tablet PO 40 mg QPM MURRAY Administration Radiology Results: ITS Impressions Chest X-Ray 08/13/24 16:43 IMPRESSION: 1. No acute cardiopulmonary disease. Head CT 08/13/24 21:14 IMPRESSION: No acute intracranial process. Labs Labs: Laboratory Results - last 24 hr 08/16/24 05:23 WBC 3.0 L RBC 3.10 L Hgb 8.5 L Hct 28.6 L MCV 92.3 MCH 27.4 MCHC 29.7 L RDW 14.4 Plt Count 179 MPV 10.5 H Sodium 140 Potassium 3.4 Chloride 112 H Carbon Dioxide 21 L Anion Gap 7 BUN 27 H Creatinine 1.64 H Estim Creat Clear Calc 27 Estimated GFR 31 L Glucose 86 Calcium 9.6 Quality VTE Prophylaxis VTE prophylaxis: pharmacologic ordered
[2024-08-16] MEDS: CLOPIDOGREL BISULFATE 75 MG TABLET PO (09:01)
[2024-08-16] MEDS: FUROSEMIDE 20 MG TABLET PO (09:01)
[2024-08-16] MEDS: ASPIRIN 81 MG ENTERIC TABLET PO (09:01)
[2024-08-16] MEDS: PANTOPRAZOLE 40 MG TABLET PO ×2 (09:01→21:06)
[2024-08-16] MEDS: allopurinoL 300 MG TABLET PO (09:01)
[2024-08-16] MEDS: FERROUS SULFATE 325 MG TABLET DR PO ×2 (09:01→17:10)
[2024-08-16] MEDS: CYCLOBENZAPRINE HCL 10 MG TABLET PO ×3 (09:01→17:10)
[2024-08-16] MEDS: ATORVASTATIN 20 MG TABLET PO (09:02)
[2024-08-16] MEDS: OSELTAMIVIR PHOSPHATE 30 MG CAPSULE PO (09:02)
[2024-08-16] MEDS: BENZOCAINE/MENTHOL (*BKC) 18 EA LOZENGE 1 LOZENGE PO (21:06)
[2024-08-16] MEDS: MELATONIN 5 MG TABLET 10 MG PO (21:06)
[2024-08-17] VITALS (7 sets, daily range): BP systolic 105–123; BP diastolic 52–68; PULSE 77–100; RESP 18; TEMP 36.7; O2SAT 95–100
[2024-08-17] MEDS: BENZONATATE 100 MG CAPSULE 200 MG PO ×2 (05:40→13:18)
[2024-08-17 06:40] LABS: Anion Gap 10 mmol/L (4-12); Blood Urea Nitrogen 26 mg/dL (7-17); Calcium 9.5 mg/dL (8.4-10.2); Carbon Dioxide 19 mmol/L (22-30); Chloride 110 mmol/L (98-107); Estimated CRCL calculation 30 ml/min; Estimated Glomerular Filt Rate 34; Glucose 88 mg/dL (65-110); Hematocrit 28.3 % (37.0-47.0); Hemoglobin 8.8 g/dL (12.0-15.0); Mean Corpuscular HGB Conc 31.1 g/dl (32-36); Mean Corpuscular Hemoglobin 28.5 pg (26-34); Mean Corpuscular Volume 91.6 fl (80-100); Mean Platelet Volume 9.9 fl (7.4-10.4); Platelet Count Result 172 k/mm3 (150-375); Potassium 3.1 mmol/L (3.4-5.0); Red Blood Count 3.09 M/mm3 (4.2-5.4); Red Cell Distribution Width 14.3 % (11.5-14.5); Sodium 139 mmol/L (137-145); White Blood Count 3.1 K/mm3 (4.5-10.0)
--- NOTE | 2024-08-17 08:51 | P.PNIM_ITS ---
Progress Note: A&P Assessment and Plan (1) Orthostatic hypotension: Code(s): I95.1 - Orthostatic hypotension Status: Acute Assessment and Plan: - Positive orthostatic on admission, monitor q shift - s/p 1L bolus and maintenance fluids which have since been DC. She continues to be orthostatic will give another 1L at 100 ml/hr. - Rosalino roberson ordered - Continue telemetry - Holding valsartan - Head CT: no acute intracranial process - Chest XR: no acute cardiopulmonary disease - PT/OT 08/16: Patient is now having blood pressures with systolics in the 150s however orthostatics remain positive. She denies any dizziness or lightheadedness at that time. Will hold on starting midodrine as patient is having hypertension and do not want to further elevate this pressure. Will continue to monitor. (2) Influenza A: Code(s): J10.1 - Influenza due to other identified influenza virus with other respiratory manifestations Status: Acute Assessment and Plan: - tested positive for influenza A on viral panel - Chest XR: no acute cardiopulmonary disease - Tamiflu started on 08/14 - currently not requiring supplemental O2 08/16: Patient had a mild fever overnight possibly due to flu, however will obtain blood cultures to further assess. Patient is also noted to have leukopenia on labs. - Blood cultures: NGTD 08/17: Patient remains afebrile. (3) Coronary artery disease: Qualifiers: Coronary Disease-Associated Artery/Lesion type: unspecified vessel or lesion type [place] vs. transplanted heart: [place] heart Associated angina: without angina Qualified Code(s): I25.10 - Atherosclerotic heart disease of [place] coronary artery without angina pectoris Code(s): I25.10 - Atherosclerotic heart disease of [place] coronary artery without angina pectoris Status: Chronic Assessment and Plan: Chronic, continue home medications (4) Chronic kidney disease, stage 3b: Code(s): N18.32 - Chronic kidney disease, stage 3b Status: Acute Assessment and Plan: BUN/Cr 27/1.57 with GFR 32 on admission, appears around baseline. - BUN/Cr 26/1.48 on am labs - Renally dose medications - Avoid nephrotoxic medications (5) Anemia: Qualifiers: Anemia type: unspecified type Qualified Code(s): D64.9 - Anemia, unspecified Code(s): D64.9 - Anemia, unspecified Status: Acute Assessment and Plan: H/H 10.2/33.2 on admission. Appears around baseline. - H/H 8.8/28.3 on am labs - Iron panel low on 08/08/24, started on iron supplementation - B12 and folate WNL on 08/08/24 - No signs of active bleeding - Monitor Subjective Date/time seen: 08/17/24 08:51 Interval history: 73 y.o female with past medical history of CHF, CAD, and CKD who presents to the hospital for weakness, Flu, worsening cough, and multiple falls in the last few days. Review of Systems Review of Systems: All systems reviewed & are unremarkable except as noted in HPI and below Exam Narrative: AF HR General: female in no acute respiratory distress who is nontoxic appearing, lying semi recumbent in bed. HEENT: Normocephalic. Atraumatic. Extraocular movement intact. Sclera clear and anicteric. No facial asymmetry. Chest: Lungs are clear to auscultation bilaterally. No wheezes or crackles. CV: Heart was regular rate and rhythm. S1-S2. No murmurs, gallops, or rubs. Abd: Abdomen was soft. Nontender. Nondistended. Positive bowel sounds. No organomegaly or masses. Ext: No clubbing, cyanosis, or edema. 2+ DP pulses bilaterally. Neuro: Patient is alert and oriented x4. Speech is clear. Objective Data Vital Signs Vital Signs: Vital Signs - 24 hr 08/16/24 09:00 08/16/24 09:00 08/16/24 12:00 Temperature Pulse Rate 72 72 Respiratory Rate Blood Pressure 128/57 L Pulse Oximetry 97 Oxygen Delivery Room Air 08/16/24 14:00 08/16/24 15:20 08/16/24 15:23 Temperature 97.7 F Pulse Rate 81 72 82 Respiratory Rate 18 Blood Pressure 118/55 L 153/54 H 112/60 Pulse Oximetry 100 Oxygen Delivery 08/16/24 15:26 08/16/24 16:00 08/16/24 20:00 Temperature 98.2 F Pulse Rate 79 83 91 Respiratory Rate 20 Blood Pressure 106/54 L 150/56 H Pulse Oximetry 99 Oxygen Delivery 08/16/24 20:00 08/16/24 20:00 08/16/24 20:41 Temperature 98.2 F Pulse Rate 90 95 Respiratory Rate 20 Blood Pressure 124/72 Pulse Oximetry 100 Oxygen Delivery Room Air 08/16/24 20:43 08/16/24 20:47 08/17/24 00:00 Temperature 98.2 F 98.2 F Pulse Rate 101 H 91 81 Respiratory Rate 20 20 Blood Pressure 95/51 L 150/56 H Pulse Oximetry 100 99 Oxygen Delivery 08/17/24 04:00 08/17/24 04:57 Temperature 98.1 F Pulse Rate 89 84 Respiratory Rate 18 Blood Pressure 105/52 L Pulse Oximetry 95 Oxygen Delivery Intake/Output Intake/Output: Intake & Output 08/14/24 08/15/24 08/16/24 08/17/24 23:59 23:59 23:59 23:59 Intake Total 2039 1790 1050 290 Output Total Balance 2038 178 1049 290 Meds/Results Medications: Active Medications Generic Name Dose Route Start Last Admin Trade Name Freq PRN Reason Stop Dose Admin Allopurinol 300 mg 08/15/24 09:00 08/16/24 09:01 Allopurinol 300 Mg Tablet PO 300 mg DAILY MURRAY Administration Aspirin 81 mg 08/15/24 09:00 08/16/24 09:01 Aspirin 81 Mg Enteric Tablet PO 81 mg DAILY MURRAY Administration Atorvastatin Calcium 20 mg 08/15/24 09:00 08/16/24 09:02 Atorvastatin 20 Mg Tablet PO 20 mg DAILY MURRAY Administration Benzocaine 1 lozenge 08/15/24 20:25 08/16/24 21:06 Benzocaine/Menthol (*Bkc) 18 Ea Lozenge PO 1 lozenge PRN PRN Administration Sore Throat/Cough Benzonatate 200 mg 08/15/24 22:00 08/17/24 05:40 Benzonatate 100 Mg Capsule PO 200 mg Q8HR MURRAY Administration Clopidogrel Bisulfate 75 mg 08/15/24 09:00 08/16/24 09:01 Clopidogrel Bisulfate 75 Mg Tablet PO 75 mg DAILY MURRAY Administration Cyclobenzaprine HCl 10 mg 08/14/24 13:00 08/16/24 17:10 Cyclobenzaprine Hcl 10 Mg Tablet PO 10 mg TID MURRAY Administration Ferrous Sulfate 325 mg 08/15/24 17:00 08/16/24 17:10 Ferrous Sulfate [address] PO 325 mg BID MURRAY Administration Furosemide 20 mg 08/15/24 09:00 08/16/24 09:01 Furosemide 20 Mg Tablet PO 20 mg DAILY MURRAY Administration Melatonin 10 mg 08/14/24 21:00 08/16/24 21:06 Melatonin 5 Mg Tablet PO 10 mg QHS MURRAY Administration Oseltamivir Phosphate 30 mg 08/14/24 09:00 08/16/24 09:02 Oseltamivir Phosphate 30 Mg Capsule PO 08/19/24 08:59 30 mg DAILY MURRAY Administration Pantoprazole Sodium 40 mg 08/14/24 21:00 08/16/24 21:06 Pantoprazole 40 Mg Tablet PO 40 mg Q12HR MURRAY Administration Valsartan 40 mg 08/14/24 18:00 08/14/24 18:04 Valsartan 40 Mg Tablet PO 40 mg QPM MURRAY Administration Radiology Results: ITS Impressions Chest X-Ray 08/13/24 16:43 IMPRESSION: 1. No acute cardiopulmonary disease. Head CT 08/13/24 21:14 IMPRESSION: No acute intracranial process. Labs Labs: Laboratory Results - last 24 hr 08/17/24 05:49 WBC 3.1 L RBC 3.09 L Hgb 8.8 L Hct 28.3 L MCV 91.6 MCH 28.5 MCHC 31.1 L RDW 14.3 Plt Count 172 MPV 9.9 Sodium 139 Potassium 3.1 L Chloride 110 H Carbon Dioxide 19 L Anion Gap 10 BUN 26 H Creatinine 1.48 H Estim Creat Clear Calc 30 Estimated GFR 34 L Glucose 88 Calcium 9.5 Quality VTE Prophylaxis VTE prophylaxis: pharmacologic ordered
[2024-08-17] MEDS: POTASSIUM CHLORIDE 20 MEQ ER TABLET 40 MEQ PO (09:07)
[2024-08-17] MEDS: FERROUS SULFATE 325 MG TABLET DR PO (09:10)
[2024-08-17] MEDS: allopurinoL 300 MG TABLET PO (09:10)
[2024-08-17] MEDS: OSELTAMIVIR PHOSPHATE 30 MG CAPSULE PO (09:11)
[2024-08-17] MEDS: ATORVASTATIN 20 MG TABLET PO (09:11)
[2024-08-17] MEDS: ASPIRIN 81 MG ENTERIC TABLET PO (09:11)
[2024-08-17] MEDS: PANTOPRAZOLE 40 MG TABLET PO (09:11)
[2024-08-17] MEDS: FUROSEMIDE 20 MG TABLET PO (09:11)
[2024-08-17] MEDS: CYCLOBENZAPRINE HCL 10 MG TABLET PO ×2 (09:12→13:18)
[2024-08-17] MEDS: CLOPIDOGREL BISULFATE 75 MG TABLET PO (09:12)
--- NOTE | 2024-08-17 14:02 | P.DS_ITS ---
DS: Admitting Diagnosis Discharge Date 08/17/2024 Admitting Diagnosis Orthostatic hypotension Influenza A CAD CKD Anemia DS: Discharge Diagnosis Discharge Diagnosis (1) Orthostatic hypotension: Code(s): I95.1 - Orthostatic hypotension Status: Acute (2) Influenza A: Code(s): J10.1 - Influenza due to other identified influenza virus with other respiratory manifestations Status: Acute (3) Coronary artery disease: Qualifiers: Coronary Disease-Associated Artery/Lesion type: unspecified vessel or lesion type [place] vs. transplanted heart: [place] heart Associated angina: without angina Qualified Code(s): I25.10 - Atherosclerotic heart disease of [place] coronary artery without angina pectoris Code(s): I25.10 - Atherosclerotic heart disease of [place] coronary artery without angina pectoris Status: Chronic (4) Chronic kidney disease, stage 3b: Code(s): N18.32 - Chronic kidney disease, stage 3b Status: Acute (5) Anemia: Qualifiers: Anemia type: unspecified type Qualified Code(s): D64.9 - Anemia, unspec ified Code(s): D64.9 - Anemia, unspecified Status: Acute DS: Summary Hospital Course Reason for hospitalization: Orthostatic hypotension Influenza A CAD CKD Anemia Hospital Course: 73 y.o female with past medical history of CHF, CAD, and CKD who presents to the hospital for weakness, Flu, and multiple falls in the last few days. On arrival patient tested positive for flu a on viral panel. Chest XR showed no acute cardiopulmonary disease. Started on Tamiflu. Patient had a mild fever during admission possibly due to flu, blood cultures show NGTD and she remains afebrile. Patient had positive orthostatic hypotension during admission which was likely causing the recurrent falls. She received fluids, was placed in daniel hose and had her valsartan placed on hold. Patient then started having blood pressures with systolics in the 150s so no midodrine was started at that time. Her orthostatic hypotension resolved during admission. At time of discharge patient states that she feels much better. She had no complaints denying chest pain, shortness a breath, palpitations, nausea/vomiting, abdominal pain, dizziness/lightheadedness. Discussed with patient that she is to blood pressures at home as she is no longer taking her valsartan. She is also to change positions slowly and use her walker with ambulation. Patient stated understanding. Patient discharged home with home health in a stable condition. She is to follow up with her PCP in 1 week. Status at Discharge Functional status at discharge: uses cane/walker Time Spent with Patient Time attestation: Total time spent providing and/or coordinating discharge services: Time spent: Greater than 30 minutes Exam Narrative: AF HR 100 RR 18 Spo2 100 BP 116/63 General: female in no acute respiratory distress who is nontoxic appearing, sitting on the side of bed HEENT: Normocephalic. Atraumatic. Extraocular movement intact. Sclera clear and anicteric. No facial asymmetry. Chest: Lungs are clear to auscultation bilaterally. No wheezes or crackles. CV: Heart was regular rate and rhythm. S1-S2. No murmurs, gallops, or rubs. Abd: Abdomen was soft. Nontender. Nondistended. Positive bowel sounds. No organomegaly or masses. Ext: No clubbing, cyanosis, or edema. 2+ DP pulses bilaterally. Neuro: Patient is alert and oriented x4. Speech is clear. DS: Data Data Completed and Pending Completed studies during hospitalization: Head CT Chest XR Labs on day of discharge: Labs from last 24 hours 08/17/24 05:49 WBC 3.1 L RBC 3.09 L Hgb 8.8 L Hct 28.3 L MCV 91.6 MCH 28.5 MCHC 31.1 L RDW 14.3 Plt Count 172 MPV 9.9 Sodium 139 Potassium 3.1 L Chloride 110 H Carbon Dioxide 19 L Anion Gap 10 BUN 26 H Creatinine 1.48 H Estim Creat Clear Calc 30 Estimated GFR 34 L Glucose 88 Calcium 9.5 Preliminary micro results at discharge 08/16/24 09:30 Blood Culture - Preliminary Blood 08/16/24 09:16 Blood Culture - Preliminary Blood Discharge Plan Discharge Attending physician on discharge: Afshan Wong Consulting providers: Kavya Ramos Discharging Clinician: Kavya Ramos Anticipated Discharge Date/Time: 08/17/24 13:52 Patient Disposition: Home Health Service Activity: as tolerated Diet: as tolerated and heart healthy Discharge Instructions: Discharge disposition: Patient was admitted to the hospital for multiple falls Noted to have orthostatic hypotension (decreased blood pressure with position changes) Monitor blood pressures, document them for your primary care provider to review Stop valsartan, follow up with your primary care provider in regards to this medication Continue daniel hose/compression stocking Take caution while standing, rising, or moving Change positions slowly taking a break between each position change If you standing feel dizzy sit back down and take a break Ensure you remain adequately hydrated Eat well balanced meals Keep active to remain strong Patient diagnosed with Flu Started on tamiflu, course to be completed on 08/19 Attached is information on this medication Patient was noted to have iron deficiency anemia started on iron supplementation attached is information on this medication Encouraged to continue with yearly vaccinations Return to the emergency department if he developed sudden shortness of breath, chest pain, nausea, vomiting, upset stomach or intractable diarrhea Return to the emergency department if you develop fever greater than 101.5 Follow-up with the primary care physician within 1-2 weeks Thank you for [facility] for your healthcare needs Per Care Coordination, patient to discharge with [facility] ([phone]) for PT/OT and alf. Agency will call to arrange initial visit week of 08/19/24. Patient Instructions: Iron Supplements (By mouth), Clopidogrel (By mouth), Oseltamivir (By mouth), Heart Failure (DC), Influenza (DC), Hypotension (DC) Patient Language: [place] Stand Alone Forms: General Discharge Information Follow-up/Referrals: Lisandra,Devyn Roberts MD [Primary Care Provider] - 1 Week Discharge Medications: New ferrous sulfate 325 mg (65 mg iron) Tablet,Delayed Release (Dr/Ec) 325 mg PO BID Qty: 60 0RF oseltamivir [Tamiflu] 30 mg Capsule 30 mg PO DAILY Qty: 2 0RF Continued atorvastatin 20 mg tablet 20 mg PO DAILY allopurinol 300 mg tablet 300 mg PO DAILY melatonin 10 mg capsule 10 mg PO QHS cyclobenzaprine 10 mg tablet 10 mg PO TID potassium citrate 99 mg capsule 99 mg PO DAILY Tart [place]uff[place] Extract 1,000 mg capsule 1,000 mg PO DAILY Ultra CoQ10 75 mg capsule 75 mg PO DAILY aspirin 81 mg tablet,delayed release (DR/EC) 81 mg PO DAILY clopidogrel 75 mg tablet 75 mg PO DAILY omeprazole 40 mg capsule,delayed release(DR/EC) 40 mg PO DAILY furosemide [Lasix] 20 mg tablet 20 mg PO DAILY Discontinued cefdinir 300 mg capsule 300 mg PO Q12H valsartan 40 mg tablet 40 mg PO QPM Date of admission: 08/14/24 07:42 Primary Care Provider: LisandraDevyn Admitting Provider: Carisa Lobo Attending physician on admission: Carisa Lobo Condition: Stable Hospitalist MIPS Heart Failure (Exclusion) Patient has history of Heart Transplant or Left Ventricular Assistive Device?: No IF YES, STOP HERE Heart Failure (Qualifier) Patient has current or prior documentation of LVEF less than or equal to 40%, or mod/servere depressed LVSF?: No IF NO, STOP HERE
== END 2024-08-17 15:22 | disposition home health service (06) | DRG 312 ==
LOC: ANHED 21:07 → ANH2MED 22:42
PROVIDERS: Nurse Practitioner; Physician Assistant; Admitting Provider Internal Medicine; Emergency Provider Emergency Medicine; PCP Family Medicine; Visit Provider Student in an Organized Health Care Education/Training Program
DX: I95.1 Orthostatic hypotension (principal); I13.0 Hypertensive heart and chronic kidney disease with heart failure and stage 1 through stage 4 chronic kidney disease, or unspecified chronic kidney disease; J10.1 Influenza due to other identified influenza virus with other respiratory manifestations; I50.9 Heart failure, unspecified; N18.32 Chronic kidney disease, stage 3b; I25.10 Atherosclerotic heart disease of native coronary artery without angina pectoris; E78.5 Hyperlipidemia, unspecified; K58.0 Irritable bowel syndrome with diarrhea; D50.9 Iron deficiency anemia, unspecified; R29.6 Repeated falls; Z86.73 Personal history of transient ischemic attack (TIA), and cerebral infarction without residual deficits; Z95.5 Presence of coronary angioplasty implant and graft; Z85.038 Personal history of other malignant neoplasm of large intestine; I25.2 Old myocardial infarction; Z90.49 Acquired absence of other specified parts of digestive tract; Z90.710 Acquired absence of both cervix and uterus; Z87.891 Personal history of nicotine dependence
CPT/HCPCS: 36415; 70450; 71046; 80048; 80053; 83880; 84484; 85025; 85027; 85610; 85730; 87040; 87637; 93005; 96360; 97110; 97162; 97165; 97530; 97535; 99285; A9270; G0378; J7030; J7040

== ENCOUNTER 2024-09-06 09:30 | Outpatient (CLI) | payer MEDICARE, OTHER, SELFPAY ==
[2024-09-06 10:13] LABS: Hematocrit 33.7 % (37.0-47.0); Hemoglobin 9.9 g/dL (12.0-15.0); Mean Corpuscular HGB Conc 29.4 g/dl (32-36); Mean Corpuscular Hemoglobin 28.1 pg (26-34); Mean Corpuscular Volume 95.7 fl (80-100); Mean Platelet Volume 9.3 fl (7.4-10.4); Platelet Count Result 226 k/mm3 (150-375); Red Blood Count 3.52 M/mm3 (4.2-5.4); Red Cell Distribution Width 16.8 % (11.5-14.5); White Blood Count 4.5 K/mm3 (4.5-10.0)
[2024-09-06 10:37] LABS: Alanine Aminotransferase 19 U/L (6-35); Albumin Level 3.8 g/dL (3.5-5.1); Alkaline Phosphatase 116 U/L (38-126); Anion Gap 10 mmol/L (4-12); Aspartate Amino Transferase 29 U/L (14-36); Bilirubin,Total 0.3 mg/dL (0.2-1.3); Blood Urea Nitrogen 27 mg/dL (7-17); Carbon Dioxide 23 mmol/L (22-30); Chloride 109 mmol/L (98-107); Estimated Glomerular Filt Rate 34; Glucose 95 mg/dL (65-110); Phosphorus 3.5 mg/dL (2.5-4.5); Potassium 4.3 mmol/L (3.4-5.0); Sodium 142 mmol/L (137-145)
[2024-09-06 10:39] LABS: NT Pro B Type Natriuretic Pept 424 pg/mL (19.9-100)
[2024-09-06 10:47] LABS: Creatinine Urine 98.9 mg/dL; Total Protein Urine Random 15 mg/dL; Ur Ttl Prot Creatinine Ratio 0.15 mg/mg (0-0.20)
--- OUTSIDE RECORDS SUMMARY | 2024-09-06 10:48 | XMS_ITS | CONTINUITY OF CARE DOCUMENT ---
Author Name sheila sosa Address Unknown Organization [facility] Address [address] [place] [address] [address] [place] [address] Phone [phone] Care Team Providers Care Cnc Milling Machinist Name Role Phone Mariusz Padilla MD Unavailable Mariusz Padilla MD Unavailable PAMELA CHANG MD Unavailable [phone] PROBLEMS Condition Status Date Provider Notes Tobacco use, quit active Mariusz Padilla MD Chest pain-type to be determined completed - Mariusz Padilla MD Bradycardia completed - Mariusz Padilla MD Renal disease, chronic, mild;neg us and duplex active Mariusz Padilla MD Thyroid nodule active Mariusz Padilla MD Hypertriglyceridemia active Mariusz Brady Abnormal chest CT scan active Mariusz Padilla MD fatty liver active Mariusz Padilla MD Valvular heart disease active Mariusz Padilla MD Screening active Mariusz Padilla MD B12 deficiency active Mariusz Padilla MD foal te foalte [place] Emphysema active Mariusz Padilla MD Palpitations completed - Mariusz Padilla MD hx of TIA;neg carotgid and tele active Mariusz Padilla MD FAMILY HISTORY OF HEART DISEASE active Mariusz Padilla MD dad Sleep apnea active Mariusz Padilla MD Myocardial infarction, acute , anterior wall active Mariusz Padilla MD 2000 with vf arrest Hyperlipidemia active Mariusz Padilla MD CAD active Mariusz Padilla MD mild car otid plaqre Anemia, iron deficiency active Mariusz vallecillo MD Obesity active Mariusz Padilla MD ENCOUNTERS Date Type Provider Location Encounter Diag nosis 3 - 3 In-person encounter Office Visit Mariusz Padilla MD [facility] CADhx of TIA;neg carotgid and telePalpitationsEmphysemaChest pain-type to be pvdzxfbayoOzoitijqnhzH33 deficiencyRenal disease, chronic, mild;neg us and duplexScreeningValvular heart diseasefatty liverThyroid noduleAbnormal chest CT scanHypertriglyceridemia 2 - 2 In-person encounter Office Visit Mariusz Padilla MD [facility] [place] ObesityAnemia, iron deficiencyCADHyperlipidemiaTobacco use, quitMyocardial infarction, acute, anterior wallSleep apneaFAMILY HISTORY OF HEART DISEASEhx of TIA;neg carotgid and teleEmphysema VITAL SIGNS Date Observation Value Provider Body Mass Index (Ratio) 35.60 kg/m2 Rosanna Padilla MD blood pressure, cuff size regular Cr ihsan Murray blood pressure, diastolic 60 mm[Hg] Cr ihsan Murray blood pressure, systolic 130 mm[Hg] Cry stamelanie Murray oxygen saturation, oximetry 98 % Martha Murrya respiratory rate E&M 17 /min Martha Murray pulse rate 54 /min Martha rivers weight E&M 201 [lb_av] Martha rivers height E&M 63 [in_i] Martha rivers Body Mass Index (Ratio) 35.60 kg/m2 Rosanna Padilla MD blood pressure, diastolic 80 mm[Hg] Kr isty [place] blood pressure, systolic 140 mm[Hg] Bimal Severino pulse rate 51 /min Isadora Severino oxygen saturation, oximetry 97 % Isadora Severino respiratory rate E&M 17 /min Isadora Severino blood pressure, cuff size regular Lennox Severino height E&M 63 [in_i] Isadora Severino weight E&M 201 [lb_av] Isadora Severino ALLERGIES Allergy Name Onset Date Reaction Criticality Status FENOFIBRATE Low Criticality active CIPRO Low Criticality active IBUPROFEN Low Criticality active QUINOLONES Low Criticality active PCN Low Criticality active RESULTS Date Observation Value Provider Reference Range Interpretation Location 4 ferritin, serum 394 ng/mL [facility] 15-150 High 4 iron saturation percent, serum 26 % [facility] 15-55 4 iron, serum 77 ug/dL [facility] 27-139 4 iron binding capacity, unsaturated 218 ug/dL [facility] 922-299 6442/09/0 4 iron binding capacity, total 295 ug/dL [facility] 881-596 5578/09/0 4 lipoprotein, beta, serum, point, quantitative, calculated 59 mg/dL [facility] 0-99 4 very low density lipoproteins 74 mg/dL [facility] 5-40 High 4 HDL cholesterol, serum 34 mg/dL [facility] >39 Low 4 triglyceride, serum, random 370 mg/dL [facility] 0-149 High 4 cholesterol, serum 167 mg/dL [facility] 540-021 4409/07/2 3 pro brain natriuretic peptide 282 pg/mL [facility] 0-301 3 D-dimer quantitative mcg/mL 0.57 MG/L FEU [facility] 0.00-0.49 High 3 microalbumin/creatin ine ratio, urine 16.3 MG/G CREAT [facility] 0.0-30.0 3 microalbumin, random, urine 0.6 mg/dL [facility] Units converted. See lab report for original value. 3 creatinine, random, urine 36.8 mg/dL [facility] Not Estab. 3 B-12, serum 248 pg/mL [facility] 232-1245 3 folate, serum 5.2 ng/mL [facility] >3.0 3 prothrombin time (patient) 10.0 s [facility] 9.1-12.0 3 international normalized ratio (INR) 0.9 [facility] 0.8-1.2 3 free thyroxine index 1.4 [facility] 1.2-4.9 3 triiodothyronine resin uptake 23 % [facility] 24-39 Low 3 thyroxine, serum, total 6.1 ug/dL [facility] 4.5-12.0 3 thyroid stimulating hormone, serum 3.260 u[IU]/mL [facility] 0.450-4.500 3 lipoprotein, beta, serum, point, quantitative, calculated 112 mg/dL [facility] 0-99 High 3 very low density lipoproteins 41 mg/dL [facility] 5-40 High 3 HDL cholesterol, serum 48 mg/dL [facility] >39 3 triglyceride, serum, random 203 mg/dL [facility] 0-149 High 3 cholesterol, serum 201 mg/dL [facility] 100-199 High 3 basophil count, absolute 0.1 x10E3/uL [facility] 0.0-0.2 3 Eosinophil Absolute Count 0.2 X10E3/UL [facility] 0.0-0.4 3 monocyte count, blood, automated 0.6 X10E3/UL [facility] 0.1-0.9 3 lymphocyte count, blood, automated 2.2 X10E3/UL [facility] 0.7-3.1 3 Absolute Neutrophils 5.8 X10E3/UL [facility] 1.4-7.0 3 basophils as percent of blood leukocytes 1 % [facility] Not Estab. 3 eosinophils as percent of blood leukocytes 3 % [facility] Not Estab. 3 monocytes as percent of blood leukocytes 7 % [facility] Not Estab. 3 lymphocytes as percent of blood leukocytes 25 % [facility] Not Estab. 3 neutrophils as percent of blood leukocytes 64 % [facility] Not Estab. 3 platelet count 309 X10E3/UL [facility] 968-412 5800/07/2 3 red blood cell distribution width 20.4 % [facility] 12.3-15.4 High 3 mean corpuscular hemoglobin concentration, RBC 31.5 G/DL [facility] 31.5-35.7 3 mean corpuscular hemoglobin, RBC 24.8 pg [facility] 26.6-33.0 Low 3 mean corpuscular volume, RBC 79 fL [facility] 79-97 3 hematocrit, blood 37.8 % [facility] 34.0-46.6 3 hemoglobin, blood 11.9 g/dL [facility] 11.1-15.9 3 erythrocyte (RBC) count 4.79 X10E6/UL [facility] 3.77-5.28 3 leukocyte count, blood 9.0 X10E3/UL [facility] 3.4-10.8 3 alanine aminotransferase (SGPT), serum 28 1/L [facility] 0-32 3 aspartate aminotransferase (SGOT), serum 37 1/L [facility] 0-40 3 alkaline phosphatase, serum 108 1/L [facility] 39-117 3 bilirubin, serum, total 0.2 mg/dL [facility] 0.0-1.2 3 albumin/globulin ratio, serum 1.8 [facility] 1.2-2.2 3 globulin, serum 2.8 [facility] 1.5-4.5 3 albumin, serum 4.9 g/dL [facility] 3.6-4.8 High 3 protein, total, serum 7.7 g/dL [facility] 6.0-8.5 3 calcium, serum 11.1 mg/dL [facility] 8.7-10.3 High 3 carbon dioxide, venous blood 20 mmol/L [facility] 20-29 3 chloride, serum 105 mmol/L [facility] 96-106 3 potassium, serum 4.1 mmol/L [facility] 3.5-5.2 3 sodium, serum 142 mmol/L [facility] 038-493 9921/07/2 3 urea nitrogen/creatinine ratio, serum 20 [facility] 12-28 3 eGFR if 45 mL/min/{1 .73_m2} [facility] >59 Low 3 eGFR if not 39 mL/min/{1 .73_m2} [facility] >59 Low 3 creatinine, serum 1.38 mg/dL [facility] 0.57-1.00 High 3 urea nitrogen, blood 28 mg/dL [facility] 8-27 High 3 blood glucose, random 100 mg/dL [facility] 65-99 High HISTORY OF MEDICATION USE Medication Status Instructions Dates Provider Indications Com ments ZITHROMAX Z-ROMAN 250 MG ORAL TABLET active take as directed Jony Franco VASCEPA 1 GM ORAL CAPSULE active two pils twice a day Mariusz Padilla MD ZITHROMAX Z-ROMAN 250 MG ORAL TABLET completed Take as directed - Mariusz Padilla MD ZITHROMAX 1 GM ORAL PACKET completed take as directed - Mariusz Padilla MD EZETIMIBE 10 MG TABLET active TAKE 1 TABLET BY MOUTH EVERY DAY WITH SIMVASTATIN Hany Hess VITAMIN B-12 1000 MCG ORAL TABLET active One tablet daily Mariusz Padilla MD VALSARTAN 40 MG TABLET active TAKE 1 TABLET BY MOUTH EVERY DAY Francisco Oliveira NALTREXONE HCL 50 MG ORAL TABLET active 1/2 tab by mouth daily, if not effective after 1 week may increase to 1/2 tab twice daily Mariusz Padilla MD BUPROPION HCL 100 MG ORAL TABLET active 1 tab by mouth daily, if not effective after 1 week may increase to 1 tab twice daily Mariusz Padilla MD LOMOTIL 2.5-0.025 MG ORAL TABLET active take one tablet by mouth once daily [facility] FISH OIL 1000 MG ORAL CAPSULE active take one tablet by mouth once daily [facility] ADULT ASPIRIN REGIMEN 81 MG ORAL TABLET DELAYED RELEASE active take one tablet by mouth once daily [facility] CO Q 10 100 MG ORAL CAPSULE active take one tablet by mouth once daily [facility] SIMVASTATIN 20 MG ORAL TABLET active take one tablet by mouth once daily Isadora Severino #90, 90 days supply, Prescribed by PAMELA CHANG, Filled 11/01/2018 METOPROLOL TARTRATE 25 MG ORAL TABLET active 1/2 a day Mariusz Padilla MD #90, 90 days supply, Prescribed by PAMELA CHANG, Filled 11/02/2018 CLOPIDOGREL BISULFATE 75 MG ORAL TABLET active TAKE 1 TABLET BY MOUTH ONCE DAILY Isadora Severino #60, 60 days supply, Prescribed by FE GARDUNO, Filled 11/24/2018 FUROSEMIDE 20 MG ORAL TABLET active TAKE 1 TABLET BY MOUTH ONCE DAILY FOR EDEMA Isadora Severino #30, 30 days supply, Prescribed by PAMELA CHANG, Filled 11/27/2018 COLCHICINE 0.6 MG ORAL TABLET active TAKE TWO TABLETS BY MOUTH AT ONSET OF GOUT ATTACK THEN ONE EVERY HOUR. MAX OF 3 TABS 24 HOURS. Isadora Severino #6, 2 days supply, Prescribed by PAMELA CHANG, Filled 12/04/2018 ZOLPIDEM TARTRATE 10 MG ORAL TABLET active TAKE 1 TABLET BY MOUTH ONCE DAILY AT BEDTIME NEEDED Isadora Severino #30, 30 days supply, Prescribed by PAMELA CHANG, Filled 12/08/2018 OMEPRAZOLE 40 MG ORAL CAPSULE DELAYED RELEASE active TAKE 1 CAPSULE BY MOUTH ONCE DAILY Isadora Severino #30, 30 days supply, Prescribed by PAMELA CHANG, Filled 12/08/2018 SOCIAL HISTORY Date Observation Value Provider social history E&M S moking History: Nydia maxwell is a former smoker. Mariusz Padilla MD social history reviewed E&M revi ewed - no changes required Mariusz Padilla MD cigarette use yes Martha Britton ms smoking status Former smoker Martha Bailey iams quit smoking, stage quit Mariusz mendoza MD social history E&M S moking History: Nydia maxwell is a former smoker. Mariusz Padilla MD social history reviewed E&M revi ewed - no changes required Mariusz Padilla MD smoking history, tot al pack/day 1.5-1 pk qd Isadora Emby smoking, year quit 2012 Isadora Bu sby cigarette use yes Isadora Severino smoking status Former smoker Isadora Severino FUNCTIONAL STATUS Date Observation Value Provider HRA, CV Assess/Plan, Angina (inactive) Management Plan continue current therapy Mariusz Padilla MD HRA, CV Assess/Plan, Angina (inactive) Management Plan continue current therapy Mariusz Padilla MD FAMILY HISTORY Family Member Condition Mother Family History of CV A or Stroke: INSURANCE PROVIDERS Payer name Policy type / Coverage type Kenny red democrat [place] B Medicare [id number] [employer] Other 1 [id number] TREATMENT PLAN Date Name Performer Cardiology:to have to tittracorin Padilla MD Cardiology Mariusz Padilla MD Cardiology Mariusz Padilla MD Cardiology:treazted for pna and will repat Mariusz Padilla MD Cardiology:mild mr and tr Mariusz Padilla MD Cardiology:nml ef, n eg tele, neg pro bnp neg dd, neg uacr, nml tsh Mariusz Padilla MD Cardiology Mariusz Padilla MD Cardiology Mariusz Padilla MD Cardiology: r emote stents lad and rca for complee 2000 and 2001, nuc 2019 neg Mariusz Padilla MD Cardiology Mariusz Padilla MD Cardiology Mariusz Padilla MD Cardiology Mariusz Padilla MD Cardiology Mariusz Padilla MD Cardiology Mariusz Padilla MD Cardiology: H er updated medication list for this problem includes: Simvastatin 20 Mg Oral Tablet (Simvastatin) ..... Take one tablet by mouth once daily Mariusz Padilla MD Cardiology:machine broke and meenakshi munoz had it repaired Mariusz Padilla MD Cardiology:will try contragustina Padilla MD Cardiology:The patie nt is between 55-77 years old and has smoked at least 30 pack years. The patient is either a current smoker or has quit within the past 15 years. T he patient is recommended to have low dose CT scan for lung cancer screening. Has been counseled regarding the importance of tobacco cessation and abstinence. Shared decision making during this office visit included discussion of the benefits and harms of screening, possible future recommendations of follow-up diagnostic testing, and total amount of radiation exposure. The patient was recommended to have annual low dose CT scan for lung cancer screening and is willing to undergo diagnosis and treatment. Mariusz Padilla MD Cardiology:had infus ions due to bleeding frin colon cancer, surgery for cure Mariusz Padilla MD Cardiology:on plavix, last one a year ago Mariusz Padilla MD Cardiology:remote st ents lad and rca for complee 1999 and 2000, last stress 2001 Mariusz Padilla MD Date Name DLCO - 54601 FRC - 11680 FVC - 17004 IRON AND TOTAL IRON BINDING CAPACITY FERRITIN LIPID PANEL CT Chest without con trast Thyroid Ultrasound URINALYSIS, RANDOM, MICROALB/CREATININE Carotid Duplex Bilat eral Mobile Cardiac Tele Sleep Study - split night FOLATE, SERUM VITAMIN B12 PROBNP, N TERMINAL THYROID PANEL WITH T SH, 3RD GENERATION Complete Echo CXR- PA/Lat COMPREHENSIVE METABO LIC PANEL, W/EGFR D-DIMER, QUANTITATIV E PROTHROMBIN TIME WIT H INR LIPID PANEL CBC (INCLUDES DIFF/P LT) Stress Regadenoson Low Dose Lung CT HISTORY OF PROCEDURES Procedure Date Procedure Name Provider Procedure Notes S tatus Thyroid Ultrasound Mariusz Padilla MD completed Regadenoson, 4 units Mariusz Padilla MD completed Cardiolite, 2 units Mariusz Padilla MD completed SPECT Images Mariusz Padilla MD comple daniel Stress EKG Mariusz Padilla MD complete d Ultrasound, retroperitoneal, complete Mariusz Padilla MD completed Mobile Cardiac Telem etry - Tech Mariusz Padilla MD completed Mobile Cardiac Telem etry - Prof Mariusz Padilla MD completed Counseling LDCT Mariusz Padilla MD com pleted EKG Mariusz Padilla MD complete d
--- OUTSIDE RECORDS SUMMARY | 2024-09-06 10:48 | XMS_ITS | Clinical Summary ---
Author Organization [facility] Address [address] [place] [address] Care Team Providers Care Net Development Manager Name Role Phone Devyn Fry MD Primary Care Provider [phone] Source Comments [facility] [employer],non-owned Affiliates and Associated Physician Practices is amultiple site organization consisting of ambulatory clinics and hospital sitesin [place], [place], [place] and [place]. This disclosure is being madepursuant to the Care Everywhere program and may not contain all information available regarding this patient. Last updated 18.[facility] [employer] Allergies Active Allergy Reactions Criticality Noted Date [...] Comments Blood Pressure 100/60 08/29/2023 11:38 AM CLOTH SHEARING SUPERVISOR Pulse 64 08/29/2023 11:38 AM CLOTH SHEARING SUPERVISOR Temperature 36.7 C (98 F) 05/01/2020 6:46 PM CLOTH SHEARING SUPERVISOR Respiratory Rate 14 08/29/2023 11:38 AM CLOTH SHEARING SUPERVISOR Oxygen Saturation 95% 08/29/2023 11:38 AM CLOTH SHEARING SUPERVISOR Inhaled Oxygen Concentration - - Weight 74.4 kg (164 lb) 08/29/2023 11:38 AM CLOTH SHEARING SUPERVISOR Height 160 cm (5' 3 ) 08/29/2023 11:38 AM CLOTH SHEARING SUPERVISOR Body Mass Index 29.05 08/29/2023 11:38 AM CLOTH SHEARING SUPERVISOR Plan of Treatment Health Maintenance Due Date [...] to complete this topic MENINGOCOCCAL (Group B) VACC INE SHARED DECISION-MAKING Aged Out No longer eligibl e based on patient's age to complete this topic MENINGOCOCCAL GROUPS A/C/Y/W VACCINE Aged Out No longer eligible b ased on patient's age to complete this topic Care Teams Net Development Manager Relationship Specialty Start Date End Date Devyn Fry MD [facility] [place] [id number] PCP - General Family Medicine 06/14/23
--- OUTSIDE RECORDS SUMMARY | 2024-09-06 10:48 | XMS_ITS | Patient Health Record ---
Author Organization [facility] Address [address] [place] [address] Care Team Providers Care Detonator Maker Name Role Phone Ramos Vera MD Primary [...] Problem Status W/U Status Risk Notes Problem [id number] History of colon cancer (Z85.038) Active confirmed Plan Of Treatment Pending Test Test Name Order Date EUS 11/26/2021 Insurance Providers Payer Name Payer Address Payer Phone Subscriber Number Group Number Insured Name Patient Relationship to Insured Coverage Start Date Coverage End Date Medicare E2 [address] [address] [place] [address] [id number] Hui Dominguez Self - patient is the insured Physician [place] [address] [place] [phone] [id number] Angelica Hui Self - patient is the insured Medical [...]
--- OUTSIDE RECORDS SUMMARY | 2024-09-06 10:48 | XMS_ITS | Referral Summary ---
Author Organization [facility] [employer] Address [address] [place] [address] Care Team Providers Care Mixing Machine Tender Cork Gasket Name Role Phone Devyn Fry MD Primary Care Provider [phone] Source Comments [facility] [employer],non-owned Affiliates and Associated Physician Practices is amultiple site organization consisting of ambulatory clinics and hospital sitesin [place], [place], [place] and [place]. This disclosure is being madepursuant to the Care Everywhere program and may not contain all information available regarding this patient. Last updated 18.[facility] [employer] Allergies Active Allergy Reactions Criticality Noted Date [...] Comments Blood Pressure 100/60 08/29/2023 11:38 AM LABOR ARBITRATOR Pulse 64 08/29/2023 11:38 AM LABOR ARBITRATOR Temperature 36.7 C (98 F) 05/01/2020 6:46 PM LABOR ARBITRATOR Respiratory Rate 14 08/29/2023 11:38 AM LABOR ARBITRATOR Oxygen Saturation 95% 08/29/2023 11:38 AM LABOR ARBITRATOR Inhaled Oxygen Concentration - - Weight 74.4 kg (164 lb) 08/29/2023 11:38 AM LABOR ARBITRATOR Height 160 cm (5' 3 ) 08/29/2023 11:38 AM LABOR ARBITRATOR Body Mass Index 29.05 08/29/2023 11:38 AM LABOR ARBITRATOR Plan of Treatment Not on file Care Teams Mixing Machine Tender Cork Gasket Relationship Specialty Start Date End Date Devyn Fry MD [address] [place] [address] PCP - General Family Medicine 06/14/23
--- OUTSIDE RECORDS SUMMARY | 2024-09-06 10:48 | XMS_ITS | Clinical Summary ---
Author Organization [facility] Address [facility] [place] [address] Care Team Providers Care Safety Supervisor Name Role Phone Devyn Fry MD Primary Care Provider [phone] Allergies Active Allergy Reactions Criticality Noted Date [...] 07/02/19 24 Active neomycin-polymy lavonne-dexamethaso ne (MAXITROL) 3.5-51649-3.1 Ointment APPLY THIN RIBBON ON UPPER AND [...] Date Heart disease 06/04/2024 Kidney disease 06/04/2024 Social History Tobacco Use Types Packs/Day Years [...] Comments Blood Pressure 109/70 06/04/2024 7:38 AM SPECIAL PROJECTS COORDINATOR Pulse 75 06/04/2024 7:38 AM SPECIAL PROJECTS COORDINATOR Temperature - - Respiratory Rate - - Oxygen Saturation 98% 06/04/2024 7:38 AM SPECIAL PROJECTS COORDINATOR Inhaled Oxygen Concentration - - Weight 75.8 kg (167 lb) 06/04/2024 7:38 AM SPECIAL PROJECTS COORDINATOR Height 160 cm (5' 3 ) 06/04/2024 7:38 AM SPECIAL PROJECTS COORDINATOR Body Mass Index 29.58 06/04/2024 7:38 AM SPECIAL PROJECTS COORDINATOR Plan of Treatment Health Maintenance Due Date Last Done Comments Colorectal Cancer Screening Colonoscopy (10 Years) 1949 Hepatitis C 1967 DTaP, Tdap and Td Vaccines (1 - Tdap) 1968 Mammogram Screening 1989 Annual Medicare Wellness Visit 2014 Dexa Scan (General) 2014 PHQ-2 (Physician [place]) 06/27/2024 06/04/2024 Zoster Vaccines Completed 12/29/2022, 10/27/2022 [...] on patient's age to complete this topic Insurance MEDICARE [employer] Care Teams Safety Supervisor Relationship Specialty Start Date End Date Devyn Fry MD [address] [place] [address] PCP - General FAMILY PRACTICE 02/09/24
--- OUTSIDE RECORDS SUMMARY | 2024-09-06 10:48 | XMS_ITS | Referral Summary ---
Author Organization [place] [address] [address] [address] Care Team Providers Care Kettle Operator Name Role Phone Devyn Fry MD Primary Care Provider [phone] Encounters Date Type Department Care Team Description 08/20/2024 Telephone [facility] Cardiology [address] [place] [address] [address] [place] [phone] Halie Cai NP 08/07/2024 12:15 PM ARMATURE REWINDER Office Visit [facility] [address] [place] [address] Stented coronary artery 07/30/2024 10:30 AM ARMATURE REWINDER Ancillary Procedure [facility] Cardiology [address] [place] [address] [address] [place] [phone] Positional lightheadedness 07/24/2024 Telephone [facility] Cardiology [address] [place] [address] [place] [phone] Halie Cai NP 07/19/2024 11:00 AM ARMATURE REWINDER Office Visit [facility] Cardiology [address] [place] [address] [address] [place] [phone] Halie Cai NP Positional lightheadedness (Primary Dx); Coronary artery disease involving [place] coronary artery of [place] heart without angina pectoris; Stage 3b chronic kidney disease (HCC) 07/03/2024 2:00 PM ARMATURE REWINDER Office Visit [facility] Cardiology [address] [place] [address] [address] [place] [phone] Halie Cai NP Positional lightheadedness (Primary Dx); Stage 3b chronic kidney disease (HCC); Coronary artery disease involving [place] coronary artery of [place] heart without angina pectoris; Status post coronary angiogram; Presence of stent in coronary artery 06/29/2024 10:00 AM ARMATURE REWINDER - 06/29/2024 11:30 AM [facility] Surgery [facility] Cardiac [facility]atheter[facility] [id number] [place] [address] Austin Richard MD RIGHT LEFT HEART CATHETERIZATION WITH CORONARY ANGIOGRAPHY GRAFT AND WITH OR WITHOUT LEFT VENTRICULOGRAPHY [id number] 06/29/2024 7:31 AM ARMATURE REWINDER - 06/29/2024 5:12 PM [facility] Hospital Encounter [facility] Cardiac [facility]atheterization Lab [id number] [place] [id number] Austin Richard MD LÓPEZ (dyspnea on exertion); Coronary artery disease of [place] artery of [place] heart with stable angina pectoris Discharge Disposition: Discharge to home or self care from Last 3 Months Allergies Active Allergy [...] 20 mg tabletIndicatio ns:Coronary artery disease of [place] artery of [place] heart with stable angina pectoris Take 1 tablet (20 mg total) by [...] artery disease of n ative artery of [place] heart with stable angina pectoris 04/11/2024 Pancreatic cyst 12/22/2021 Overview (12/22/2021): Added automatically from request for surgery [id number] Social History Tobacco Use Types Packs/Day Years [...] on file Legal Sex Female 7:57 AM ARMATURE REWINDER Gender Identity Not on file Sexual Orientation Not on file Last Filed Vital Signs Vital Sign Reading Time Taken Comments Blood Pressure 121/76 08/07/2024 12:00 PM ARMATURE REWINDER Pulse 75 08/07/2024 12:00 PM ARMATURE REWINDER Temperature 36.5 C (97.7 F) 06/29/2024 8:00 AM ARMATURE REWINDER Respiratory Rate 18 08/07/2024 12:0 0 PM ARMATURE REWINDER Oxygen Saturation 96% 08/07/2024 12: 00 PM ARMATURE REWINDER Inhaled Oxygen Concentration - - Weight 78.4 kg (172 lb 12.8 oz) 025 12:00 PM ARMATURE REWINDER Height 160 cm (5' 3 ) 08/07/2024 12:00 PM ARMATURE REWINDER Body Mass Index 30.61 08/07/2024 12:00 PM ARMATURE REWINDER Plan of Treatment Not on file Medical Devices Implanted Type Area Supplies Packer Device Identifier Shelf Expiration Date Model / Serial / Lot Medtronic Card Vas Surgery 3.0 X 18mm [place] Rx Coronary Stent [id number] - [id number] Implanted:Qty: 1 on 06/29/2024 by Austin Richard MD at [facility] Medtronic Card Vasc Surgery 03/01/2027 [id number] / / [id number] Reyes Vascular System Closure Repair Femoral Artery Suture Mediated Perclose Prostyle [id number] - [id number] Implanted:Qty: 1 on 06/29/2024 by Austin Richard MD at [facility] [employer] 04/26/2026 [id number] / / [id number] Closure Inc Mynx Control 6-7fr 2 Mode Balloon Catheter Sealant Lock Syringe [id number] - [id number] Implanted:Qty: 1 on 06/29/2024 by Austin Richard MD at [facility] Right: Vein Access [employer] Inc 03/01/2026 [id number] / / [id number] Procedures Procedure Name Priority Date/Time Associated Diagnosis Comments MCT - MOBILE CARDIAC TELEMETRY EVENT MONITOR Routine 07/30/2024 10:38 AM ARMATURE REWINDER Positional lightheadedness VASCULAR ACCESS US GUIDANCE Routine 06/29/2024 11:57 AM ARMATURE REWINDER LÓPEZ (dyspnea on exertion) Coronary artery disease of [place] artery of [place] heart with stable angina pectoris CORONARY OCT, 1ST VESSEL Routine 06/29/2024 11:57 AM ARMATURE REWINDER LÓPEZ (dyspnea on exertion) Coronary artery disease of [place] artery of [place] heart with stable angina pectoris PERCUTANEOUS CORONARY LITHROTRIPSY W/ PCI (+) [id number] Routine 06/29/2024 11:57 AM ARMATURE REWINDER LÓPEZ (dyspnea on exertion) Coronary artery disease of [place] artery of [place] heart with stable angina pectoris ENRIQUE MAJOR CORONARY Routine 06/29/2024 11 :57 AM ARMATURE REWINDER LÓPEZ (dyspnea on exertion) Coronary artery disease of [place] artery of [place] heart with stable angina pectoris RIGHT LEFT HEART CATHETERIZATION CORONARY GRAFT WITH WITHOUT LEFT VENTRICULOGRAPHY ANGIOGRAM Routine 06/29/2024 11:57 AM ARMATURE REWINDER LÓPEZ (dyspnea on exertion) Coronary artery disease of [place] artery of [place] heart with stable angina pectoris POCT ACTIVATED CLOTTING TIME, HIGH RANGE Routine 06/29/2024 11:35 AM ARMATURE REWINDER POCT ACTIVATED CLOTTING TIME, HIGH RANGE Routine 06/29/2024 11:14 AM ARMATURE REWINDER MODERATE SEDATION SAME MD PETERSEN ADDL 15 MIN [id number] 06/29/2024 10:08 AM ARMATURE REWINDER Coronary artery disease of [place] artery of [place] heart with stable angina pectoris MODERATE SEDATION 06/29/2024 10: 08 AM ARMATURE REWINDER Coronary artery disease of [place] artery of [place] heart with stable angina pectoris EGFR STAT 06/29/2024 7:48 AM ARMATURE REWINDER DIFFERENTIAL AUTO STAT 06/29/2024 7:4 8 AM ARMATURE REWINDER CBC WITH AUTO DIFFERENTIAL STAT 06/29/2024 7:48 AM ARMATURE REWINDER BASIC METABOLIC PANEL STAT 06/29/2024 7:48 AM ARMATURE REWINDER from Last 3 Months Results * MCT Mobile Cardiac Telemetry Event Monitor (07/30/2024 10:38 AM ARMATURE REWINDER) Anatomical Region Laterality Modality Electrocardiogra phy Narrative 09/05/2024 11:54 AM CDT AMBULATORY SOCIAL RESEARCH ASSISTANT REPORT Patient Name: Hui Mott Date of : 1950 Requesting Physician: Halie Cai NP Date of interpretation: 09/05/24 Type of monitor : 30 day event monitor Date of the study/Enrollment period: 07/30/2024-08/28/2024 Indication: Dizziness Quality of the study: Adequate Interpretation: Predominant underlying rhythm is sinus rhythm, heart rate ranged between 58-134 beats per minute, average heart rate 81 beats per minute. QRS duration within normal limits. Rare ventricular and supraventricular ectopy was noted with a burden of less than 1% for the duration of the study. No other significant arrhythmias were noted. Patient reported symptoms of shortness of breath, skipped heartbeat which correlated with sinus rhythm; other symptoms of shortness of breath, rapid heart rate correlated with sinus tachycardia with PACs. Conclusions: Predominant underlying rhythm is sinus rhythm, average heart rate 81 beats per minute. No significant arrhythmias or heart blocks were noted. Patient reports symptoms of dyspnea, skipped heartbeat which correlated with sinus rhythm; other symptoms of shortness of breath, rapid heart rate correlated with sinus tachycardia. Voice recognition software was used to complete this document, therefore, grinder set up operator gear tool variances may occur. Ken Roy MD, [facility] 09/05/24 us Halie Cai NP CV CARDIAC [facility] Final Result * RIGHT LEFT HEART CATHETERIZATION CORONARY GRAFT WITH WITHOUT LEFT VENTRICULOGRAPHY ANGIOGRAM, ENRIQUE MAJOR CORONARY, PERCUTANEOUS CORONARY LITHROTRIPSY W/ PCI (+) [id number], CORONARY OCT, 1ST VESSEL, VASCULAR ACCESS US GUIDANCE (06/29/2024 11:57 AM ARMATURE REWINDER) Anatomical Region Laterality Modality X-Ray Angiograph y Narrative 06/29/2024 12:25 PM ARMATURE REWINDER CARDIAC CATHETERIZATION REPORT Hui Mott IP ENCOUNTER: [id number] Date of Procedure: 06/29/2024 BIRTHDATE: 1950 LATHE TURNER: Austin Richard MD REFERRING PHYSICIAN: Dr. Cardona [...] patient. Patient was then brought into the laboratory monitor and was draped and prepped in the usual manner. Moderate sedation was given and the right groin was subcutaneously injected with 1% lidocaine. The right femoral vein was accessed using a 7 [place] sheath via micropuncture needle and modified Seldinger technique under ultrasound guidance. The right common femoral artery was accessed using a 5Fr sheath via a micropuncture needle and modified Seldinger technique under ultrasound guidance. A 7 [place] Collins-Nikky catheter was advanced into the right atrium, [...] of stent underexpansion. A 3.0 x 18mm [place] ENRIQUE was deployed in the proximal RCA and post dilated with a 3.5 x 12mm NC balloon to high ryan with excellent angiographic results. Hemostasis was achieved with a Perclose device at the end of the procedure. CONCLUSIONS Successful IVUS guided and IVL shockwave assisted PCI to the proximal RCA ISR with a 3.0 x 18 [place] ENRIQUE; post dilated with a 3.5 x 12 NC balloon to high ryan with excellent angiographic results. PLAN Continue ASA 81mg PO daily Start clopidogrel 75mg PO daily Continue oral lasix and aggressive risk factor modification us Austin Richard MD CV CARDIAC CATH PROCEDURES Final Result * (ABNORMAL) POC Activated Clotting Time, High Range (06/29/2024 11:35 AM ARMATURE REWINDER) ACT 211(H) 87 - 138 sec Blood 06/29/2024 11:3 5 AM ARMATURE REWINDER 06/29/2024 11:35 AM ARMATURE REWINDER us Austin Richard MD LAB BLOOD ORDERABLES Final Resul t Performing Organization Address City/[facility]/ZIP Co de Phone Number GENEVA ADKINS [address] [address] Department [place] [place] [address] * (ABNORMAL) POC Activated Clotting Time, High Range (06/29/2024 11:14 AM ARMATURE REWINDER) ACT 192(H) 87 - 138 sec Blood 06/29/2024 11:1 4 AM ARMATURE REWINDER 06/29/2024 11:14 AM ARMATURE REWINDER us Austin Richard MD LAB BLOOD ORDERABLES Final Resul t Performing Organization Address [facility] de Phone Number GENEVA ADKINS [address] [place] [address] * (ABNORMAL) eGFR (06/29/2024 7:48 AM ARMATURE REWINDER) eGFR 43(L) >=60 mL/min/1. 73 m2 Comment: [...] last reviewed 2021. Blood 06/29/2024 7:48 AM ARMATURE REWINDER 06/29/2024 8:04 AM ARMATURE REWINDER us Austin Richard MD LAB BLOOD ORDERABLES Final Resul t GENEVA [address] [place] [address] * Differential, auto (06/29/2024 7:48 AM ARMATURE REWINDER) Neutrophil abs 3.0 1.5 - 6.5 K/cumm Imm gran abs 0.0 0.0 - 0.1 K/cumm [facility] Lymphocyte abs 1.4 0.8 - 3.3 K[facility] Monocyte abs 0.6 0.2 - 0.8 K/cumm [facility] Eosinophil abs 0.1 0.0 - 0.5 K/cumm [facility] Basophil abs 0.1 0.0 - 0.1 K/cumm [facility] Neutrophil pct 58.1 % [facility] Comment: Interpretive Data Percent cell count reference ranges are not reported, since discordance with absolute values may lead to misinterpretation of CBC data. Current Interpretive Data was last revised on 2017. Imm gran pct 0.2 % [facility] Comment: Interpretive Data Percent cell count reference ranges are not reported, since discordance with absolute values may lead to misinterpretation of CBC data. Current Interpretive Data was last revised on 2017. Lymphocyte pct 26.4 % [facility] Comment: Interpretive Data Percent cell count reference ranges are not reported, since discordance with absolute values may lead to misinterpretation of CBC data. Current Interpretive Data was last revised on 2017. Monocyte pct 11.5 % [facility] Comment: Interpretive Data Percent cell count reference ranges are not reported, since discordance with absolute values may lead to misinterpretation of CBC data. Current Interpretive Data was last revised on 2017. Eosinophil pct 2.7 % [facility] Comment: Interpretive Data Percent cell count reference ranges are not reported, since discordance with absolute values may lead to misinterpretation of CBC data. Current Interpretive Data was last revised on 2017. Basophil pct 1.1 % [facility] Comment: Interpretive Data Percent cell count reference ranges are not reported, since discordance with absolute values may lead to misinterpretation of CBC data. Current Interpretive Data was last revised on 2017. Blood 06/29/2024 7:48 AM ARMATURE REWINDER 06/29/2024 8:03 AM ARMATURE REWINDER Austin Richard MD LAB BLOOD ORDERABLES Final Resul t Performing Organization Address City/[facility] Co de Phone Number GENEVA ADKINS [address] [address] Department of [employer] [place], [place] [phone] * (ABNORMAL) CBC with auto differential (06/29/2024 7:48 AM ARMATURE REWINDER) WBC 5.2 3.8 - 9.9 K/cumm Hgb 10.1(L) 11.9 - 15.5 g/dL [facility] Hct 33.6(L) 35.6 - 45.5 % [facility] Plt 243 150 - 400 K/cumm [facility] MPV 10.0 9.1 - 12.3 fL [facility] RBC 3.44(L) 3.90 - 5.20 M/cumm [facility] MCV 97.7(H) 81.3 - 96.4 fL [facility] MCH 29.4 27.1 - 33.3 pg [facility] MCHC 30.1(L) 32.3 - 35.7 g/dL [facility] RDW CV 15.0(H) 11.1 - 14.9 % [facility] RDW SD 53.4(H) 35.7 - 48.1 fL [facility] NRBC abs 0.00 0.00 - 0.01 K/cumm [facility] Blood 06/29/2024 7:48 AM ARMATURE REWINDER 06/29/2024 8:03 AM ARMATURE REWINDER Narrative [facility] - 06/29/2024 8:08 AM ARMATURE REWINDER If most recent labs were drawn prior to 4 AM, draw only prior to initiating procedure. Austin Richard MD LAB BLOOD ORDERABLES Final Resul t Performing Organization Address City/[facility]/ZIP Co de Phone Number GENEVA ADKINS [address] [address] Department [employer] [place], [place] [id number] * (ABNORMAL) Basic metabolic panel (06/29/2024 7:48 AM ARMATURE REWINDER) Sodium 141 135 - 145 mmol/L Potassium, pl 4.4 3.3 - 4.9 mmol/L [facility] Chloride 111(H) 97 - 110 mmol/L [facility] CO2 20(L) 22 - 32 mmol/L [facility] Anion gap 10 2 - 15 mmol/L [facility] BUN 23 6 - 25 mg/dL [facility] Creatinine 1.31(H) 0.60 - 1.10 mg/dL [facility] Glucose 78 70 - 199 mg/dL [facility] Comment: Interpretive Data Fasting glucose >/= 126 [...] 2022. Calcium 10.1 8.5 - 10.3 mg/dL [facility] Blood 06/29/2024 7:48 AM ARMATURE REWINDER 06/29/2024 8:04 AM ARMATURE REWINDER us Austin Richard MD LAB BLOOD ORDERABLES Final Resul t Performing Organization Address City/State/[facility] [place] Phone Number [facility] [address] [address] [place] [address] from Last 3 Months Insurance [employer] [place] MED[place] MEDICARE PHYSICIANS [facility] [employer] [place] Member Subscriber Plan / Payer (Ef fective 2014-Present) Name:Hui Mott Relation to Subscriber:Self Name:AngelicaHui [place] Payer ID:[id number] Group ID:Not on file Type:COMMERCIAL Address: [address] [place] [employer] [place] Advance Directives For more information, please contact: [phone] * Full Code (Latest Code Status on File) Date Activated Date Inactivated Comments 06/29/2024 1:58 PM 06/29/2024 9:12 PM * Full Code Date Activated Date Inactivated Comments 01/15/2022 8:39 AM 01/15/2022 2:41 PM Care Teams Kettle Operator Relationship Specialty Start Date End Date Devyn Fry MD [address] [place] [address] PCP - General Family Medicine 04/11/24
--- OUTSIDE RECORDS SUMMARY | 2024-09-06 10:48 | XMS_ITS | Patient Health Summary ---
Author Organization [facility] Address [address] [place] [address] Care Team Providers Care Supervisor Fish Hatchery Name Role Phone Devyn Fry MD Primary Care Provider [phone] Note from [facility],non-owned Affiliates and Associated Physician Practices is amultiple site organization consisting of ambulatory clinics and hospital sitesin [place], [place], [place] and [place]. This disclosure is being madepursuant to the Care Everywhere program and may not contain all information available regarding this patient. Last updated 18.[facility] Allergies * Ciprofloxacin(Vomiting) * Fenofibrate(Vomiting) * Ibuprofen(Vomiting) [...] Comments Blood Pressure 100/60 08/29/2023 11:38 AM LUMBER HACKER Pulse 64 08/29/2023 11:38 AM LUMBER HACKER Temperature 36.7 C (98 F) 05/01/2020 6:46 PM LUMBER HACKER Respiratory Rate 14 08/29/2023 11:38 AM LUMBER HACKER Oxygen Saturation 95% 08/29/2023 11:38 AM LUMBER HACKER Inhaled Oxygen Concentration - - Weight 74.4 kg (164 lb) 08/29/2023 11:38 AM LUMBER HACKER Height 160 cm (5' 3 ) 08/29/2023 11:38 AM LUMBER HACKER Body Mass Index 29.05 08/29/2023 11:38 AM LUMBER HACKER Procedures * EEG(Performed 08/02/2023) Performed for TGA [...] encounter Results * EEG (08/02/2023 8:15 PM LUMBER HACKER) Narrative [facility] - 08/02/2023 8:15 PM LUMBER HACKER Zacarias Rubi MD 08/02/2023 8:21 PM Electroencephalogram [...] absent. FIRDA is present on occasion.. The cardiac exercise specialist indicates a pulse at 60 beats per [...] ANGIO BRAIN AND NECK (08/02/2023 1:48 PM LUMBER HACKER) Anatomical Region Laterality Modality Head Computed Tomogra phy 08/02/2023 2:23 PM LUMBER HACKER Impressions 08/02/2023 3:04 PM LUMBER HACKER IMPRESSION: 1. No large vessel occlusion around the skull [place] of [place]. 2. No significant vascular stenosis. 3. 3 mm size right upper lobe lung nodule. Code: SSM-LungNodule Edited by Katherine Jade on 08/02/2023 2:49 PM > Interpreting Provider: Katty Noland MD on 08/02/2023 3:04 PM Narrative 08/02/2023 3:04 PM LUMBER HACKER PROCEDURE: CT ANGIO BRAIN AND NECK, DATE/TIME OF EXAM: 08/02/2023 1:49 PM, LOCATION [facility] INDICATION: G45.4: Transient global amnesia ADDITIONAL [...] aneurysmal dilatation, or branch occlusion about the [place]. The region of the anterior communicating artery is unremarkable. The distal vertebral arteries, vertebrobasilar junction, and basilar artery are normal in appearance. The posterior cerebral arteries are normal in appearance without high-grade stenosis, aneurysmal dilatation, or branch occlusion about the [place]. The posterior communicating arteries are [...] NECK, DATE/TIME OF EXAM: 08/02/2023 1:49PM, LOCATION [facility] INDICATION: G45.4: Transient global amnesia ADDITIONAL [...] aneurysmal dilatation, or branch occlusion about the [place]. The region of the anterior communicating artery is unremarkable. The distal vertebral arteries, vertebrobasilar junction, and basilarartery are normal in appearance. The posterior cerebral arteries are normal in appearance without high-grade stenosis, aneurysmal dilatation, or branch occlusion about the skull [place]. The posterior communicating arteries are [...] 1. No large vessel occlusion around the [place]. 2. No significant vascular stenosis. 3. 3 mm size right upper lobe lung nodule. Code: SSM-LungNodule Edited by Katherine Jade on 08/02/2023 2:49 PM > Interpreting Provider: Katty Noalnd MD on 08/02/2023 3:04 PM Zacarias Rubi MD CT ORDERABLES * (ABNORMAL) CREATININE - POCT INTERFACED (08/02/2023 1:43 PM LUMBER HACKER) [facility] Creatinine POCT 1.51(H) 0.70 - 1.20 mg/dL 08/02/2023 2:06 PM LUMBER HACKER [facility] eGFR 36(L) >=90 mL/min/1.7 3 m2 08/02/2023 2:06 PM LUMBER HACKER [facility] Blood BLOOD SPECIMEN / Unknown 08/02/2023 1:43 PM LUMBER HACKER 08/02/2023 2:06 PM LUMBER HACKER Zacarias Rubi MD LAB - POINT OF CARE ORDERABLES [facility] [address] [place] [address] * MRI BRAIN WO CONTRAST (08/02/2023 12:00 PM LUMBER HACKER) Anatomical Region Laterality Modality Head Magnetic Resonan ce 08/02/2023 12:0 4 PM LUMBER HACKER Impressions 08/02/2023 12:08 PM LUMBER HACKER IMPRESSION: No acute infarct. Changes related to chronic small vessel ischemic disease and cerebral atrophy. > Interpreting Provider: Katty Noland MD on 08/02/2023 12:08 PM Narrative 08/02/2023 12:08 PM LUMBER HACKER PROCEDURE: MRI BRAIN WO CONTRAST, DATE/TIME OF EXAM: 08/02/2023 12:00 PM, LOCATION [facility] INDICATION: G45.4: Transient global amnesia ADDITIONAL [...] CONTRAST, DATE/TIME OF EXAM: 08/02/2023 12:00PM, LOCATION [facility] INDICATION: G45.4: Transient global amnesia ADDITIONAL [...] * CARDIAC EKG ORDER (05/02/2020 8:29 AM LUMBER HACKER) Narrative 05/02/2020 8:29 AM LUMBER HACKER Ordered by an unspecified provider. Scanned Document CARDIAC SERVICES ORD ERABLES * CT LUMBAR SPINE WO CONTRAST - T/L-spine trauma, Spine fracture (05/01/2020 4:49 PM LUMBER HACKER) Anatomical Region Laterality Modality Spine Computed Tomogra phy 05/02/2020 7:15 AM LUMBER HACKER Impressions 05/02/2020 8:36 AM LUMBER HACKER IMPRESSION: 1.No acute intracranial abnormality. 2.Evaluation of [...] at L4-5. Dictated by Hany Goodrich MD (Tag Marker) I, Dr. FLORINDA CONDE have personally reviewed and interpreted this examination/study. This report was electronically signed by FLORINDA CONDE on 05/02/2020 8:36 AM . Narrative 05/02/2020 8:36 AM LUMBER HACKER EXAMINATION: Computed tomography (CT) of the head [...] at L4-5. Dictated by Hany Goodrich MD (Tag Marker) Esau, Dr. FLORINDA CONDE have personally reviewed and interpreted this examination/study. This report was electronically signed by FLORINDA CONDE on 05/02/2020 8:36AM . Yunior Haynes MD CT ORDERABLES * CT THORACIC SPINE WO CONTRAST - T/L-spine trauma, spine fracture (05/01/2020 4:49 PM LUMBER HACKER) Anatomical Region Laterality Modality Spine Computed Tomogra phy 05/02/2020 7:15 AM LUMBER HACKER Impressions 05/02/2020 8:36 AM LUMBER HACKER IMPRESSION: 1.No acute intracranial abnormality. 2.Evaluation of [...] at L4-5. Dictated by Hany Goodrich MD (Tag Marker) Dr. FLORINDA Cifuentes have personally reviewed and interpreted this examination/study. This report was electronically signed by FLORINDA CONDE on 05/02/2020 8:36 AM . Narrative 05/02/2020 8:36 AM LUMBER HACKER EXAMINATION: Computed tomography (CT) of the head [...] at L4-5. Dictated by Hany Goodrich MD (Tag Marker) I, Dr. FLORINDA CONDE have personally reviewed and interpreted this examination/study. This report was electronically signed by FLORINDA CONDE on 05/02/2020 8:36AM . Yunior Haynes MD CT ORDERABLES * CT CERVICAL SPINE WO CONTRAST - C-Spine Trauma, Spine fracture (05/01/2020 4:49 PM LUMBER HACKER) Anatomical Region Laterality Modality Spine Computed Tomogra phy 05/02/2020 7:15 AM LUMBER HACKER Impressions 05/02/2020 8:36 AM LUMBER HACKER IMPRESSION: 1.No acute intracranial abnormality. 2.Evaluation of [...] at L4-5. Dictated by Hany Goodrich MD (Tag Marker) I, Dr. FLORINDA CONDE have personally reviewed and interpreted this examination/study. This report was electronically signed by FLORINDA CONDE on 05/02/2020 8:36 AM . Narrative 05/02/2020 8:36 AM LUMBER HACKER EXAMINATION: Computed tomography (CT) of the head [...] at L4-5. Dictated by Hany Goodrich MD (Tag Marker) Dr. FLORINDA Cifuentes have personally reviewed and interpreted this examination/study. This report was electronically signed by FLORINDA CONDE on 05/02/2020 8:36AM . Yunior Haynes MD CT ORDERABLES * CT CHEST WO CONTRAST (05/01/2020 4:49 PM LUMBER HACKER) Anatomical Region Laterality Modality Chest Computed Tomogra phy 05/01/2020 5:15 PM LUMBER HACKER Impressions 05/02/2020 8:02 AM LUMBER HACKER Impression: 1. Minimal left basilar opacities may [...] available. Dictated by Ace Rodriguez MD (radiology practitioner assistant). I, Dr. E. ISIN AKDUMAN, M.D. have personally reviewed and interpreted this examination/study. This report was electronically signed by Renetta CANCHOLA M.D. on 05/02/2020 8:02 AM . Narrative 05/02/2020 8:02 AM LUMBER HACKER Procedure Information DATE: 05/01/2020 4:52 PM EXAMINATION: [...] available. Dictated by Ace Rodriguez MD (radiology practitioner assistant). I, Dr. Renetta CANCHOLA M.D. have personally reviewed and interpretedthis examination/study. This report was electronically signed by Renetta CANCHOLA M.D. on 05/02/2020 8:02 AM . Yunior Haynes MD CT ORDERABLES * CT FACIAL BONES WO CONTRAST - Facial trauma, fx suspected, blunt (05/01/2020 4:49 PM LUMBER HACKER) Anatomical Region Laterality Modality Head Computed Tomogra phy 05/02/2020 7:15 AM LUMBER HACKER Impressions 05/02/2020 8:36 AM LUMBER HACKER IMPRESSION: 1.No acute intracranial abnormality. 2.Evaluation of [...] at L4-5. Dictated by Hany Goodrich MD (Tag Marker) I, Dr. FLORINDA CONDE have personally reviewed and interpreted this examination/study. This report was electronically signed by FLORINDA CONDE on 05/02/2020 8:36 AM . Narrative 05/02/2020 8:36 AM LUMBER HACKER EXAMINATION: Computed tomography (CT) of the head [...] at L4-5. Dictated by Hany Goodrich MD (Tag Marker) Esau, Dr. FLORINDA CONDE have personally reviewed and interpreted this examination/study. This report was electronically signed by FLORINDA CONDE on 05/02/2020 8:36AM . Yunior Haynes MD CT ORDERABLES * CT HEAD WO CONTRAST - Head Trauma, CSF leak, mental status changes (05/01/2020 4:49 PM LUMBER HACKER) Anatomical Region Laterality Modality Head Computed Tomogra phy 05/02/2020 7:15 AM LUMBER HACKER Impressions 05/02/2020 8:36 AM LUMBER HACKER IMPRESSION: 1.No acute intracranial abnormality. 2.Evaluation of [...] at L4-5. Dictated by Hany Goodrich MD (Tag Marker) Dr. FLORINDA Cifuentes have personally reviewed and interpreted this examination/study. This report was electronically signed by FLORINDA CONDE on 05/02/2020 8:36 AM . Narrative 05/02/2020 8:36 AM LUMBER HACKER EXAMINATION: Computed tomography (CT) of the head [...] at L4-5. Dictated by Hany Goodrich MD (Tag Marker) I, Dr. FLORINDA CONDE have personally reviewed and interpreted this examination/study. This report was electronically signed by FLORINDA CONDE on 05/02/2020 8:36AM . Yunior Haynes MD CT ORDERABLES * XR PELVIS 1 OR 2VW (05/01/2020 3:47 PM LUMBER HACKER) Anatomical Region Laterality Modality Pelvis Radiographic Clair ging 05/01/2020 3:51 PM LUMBER HACKER Impressions 05/01/2020 3:52 PM LUMBER HACKER IMPRESSION: No acute findings. This report was electronically signed by FE JIMENEZ on 05/01/2020 3:52 PM . Narrative 05/01/2020 3:52 PM LUMBER HACKER EXAMINATION: XR PELVIS 1 OR 2VW HISTORY: [...] XR KNEE RIGHT 3VW (05/01/2020 3:47 PM LUMBER HACKER) Anatomical Region Laterality Modality Lower Extremity Radiographic Clair ging 05/01/2020 3:52 PM LUMBER HACKER Impressions 05/01/2020 3:54 PM LUMBER HACKER IMPRESSION: Suboptimal lateral imaging, with inability to exclude joint effusion or alignment alteration on the lateral view. No fracture appreciated. This report was electronically signed by FE JIMENEZ on 05/01/2020 3:54 PM . Narrative 05/01/2020 3:54 PM LUMBER HACKER EXAMINATION: XR KNEE RIGHT 3VW HISTORY: W19.XXXA: [...] CBC W AUTO DIFFERENTIAL (05/01/2020 3:18 PM LUMBER HACKER) WBC 6.0 3.5 - 10.5 10 3/uL 05/01/2020 3:29 PM [facility] RBC 3.72(L) 3.90 - 5.00 10 6/uL 05/01/2020 3:29 PM [facility] Hemoglobin 11.2(L) 12.0 - 15.5 g/dL 05/01/2020 3:29 PM [facility] Hematocrit 35.0 35.0 - 45.0 % 05/01/2020 3:29 PM [facility] MCV 94.1 81.0 - 97.0 fL 05/01/2020 3:29 PM [facility] MCH 30.1 28.0 - 34.0 pg 05/01/2020 3:29 PM [facility] MCHC 32.0 32.0 - 36.0 g/dL 05/01/2020 3:29 PM [facility] Platelet Count 206 150 - 400 10 3/uL 05/01/2020 3:29 PM [facility] RDW-SD 44.3 36.0 - 50.0 fL 05/01/2020 3:29 PM [facility] RDW-CV 12.9 11.2 - 14.8 % 05/01/2020 3:29 PM [facility] MPV 10.0 9.3 - 12.8 fL 05/01/2020 3:29 PM [facility] nRBC Absolute 0.00 0 10 3/uL 05/01/2020 3:29 PM [facility] nRBC Auto 0.0 0 /100 WBC 05/01/2020 3:29 PM [facility] Neutrophils % 61.0 35.0 - 70.0 % 05/01/2020 3:29 PM [facility] Lymphocytes % 26.1 19.7 - 55.1 % 05/01/2020 3:29 PM [facility] Monocytes % 9.5 3.0 - 15.0 % 05/01/2020 3:29 PM [facility] Eosinophils % 2.2 0.0 - 6.0 % 05/01/2020 3:29 PM [facility] Basophil % 1.0 0.0 - 1.5 % 05/01/2020 3:29 PM [facility] Neutrophils Absolute 3.7 1.6 - 7.0 10 3/uL 05/01/2020 3:29 PM [facility] Lymphocyte Absolute 1.6 0.8 - 2.9 10 3/uL 05/01/2020 3:29 PM [facility] Monocytes Absolute 0.57 0.14 - 0.66 10 3/uL 05/01/2020 3:29 PM [facility] Eosinophils Absolute 0.13 0.00 - 0.45 10 3/uL 05/01/2020 3:29 PM [facility] Basophils Absolute 0.06 0.00 - 0.06 10 3/uL 05/01/2020 3:29 PM [facility] Immature Granulocytes % 0.2 0.0 - 1.0 % 05/01/2020 3:29 PM [facility] Blood BLOOD SPECIMEN / Unknown Venipuncture / Unknown 05/01/2020 3:18 PM LUMBER HACKER 05/01/2020 3:23 PM LUMBER HACKER Yunior Haynes MD LAB - HEMATOLOGY [facility] [address] [place] [address], [facility] [phone] * (ABNORMAL) BASIC METABOLIC PANEL (CALCIUM TOTAL) (05/01/2020 3:18 PM LUMBER HACKER) BUN 47(H) 7 - 26 mg/dL 05/01/2020 3:50 PM [facility] Creatinine 1.9(H) 0.6 - 1.2 mg/dL 05/01/2020 3:50 PM [facility] Sodium 141 136 - 145 mmol/L 05/01/2020 3:50 PM [facility] Potassium 3.9 3.5 - 4.5 mmol/L 05/01/2020 3:50 PM [facility] Chloride 108(H) 98 - 107 mmol/L 05/01/2020 3:50 PM [facility] CO2 23 22 - 29 mmol/L 05/01/2020 3:50 PM [facility] Glucose 89 70 - 115 mg/dL 05/01/2020 3:50 PM [facility] Calcium 10.3(H) 8.4 - 10.2 mg/dL 05/01/2020 3:50 PM [facility] Anion Gap 14 8 - 18 05/01/2020 3:50 PM [facility] BUN/Creatinine Ratio 25(H) 7 - 23 05/01/2020 3:50 PM [facility] Osmolality Calculated 304(H) 270 - 300 mOsm/kg 05/01/2020 3:50 PM [facility] eGFR 26(L) >60 mL/min/1.7 3 m2 05/01/2020 3:50 PM [facility] Blood BLOOD SPECIMEN / Unknown Venipuncture / Unknown 05/01/2020 3:18 PM LUMBER HACKER 05/01/2020 3:23 PM LUMBER HACKER Yunior Haynes MD LAB - CHEMISTRY [facility] [address] [address], [facility] [phone] * ALCOHOL ETHYL BLOOD (05/01/2020 3:18 PM LUMBER HACKER) Interpretation Ethanol None Detected None Detected mg/dL 05/01/2020 3:50 PM LUMBER HACKER [facility] Comment:Ethanol levels less than 10 mg/dL are resulted as None detected . Blood BLOOD SPECIMEN / Unknown Venipuncture / Unknown 05/01/2020 3:18 PM LUMBER HACKER 05/01/2020 3:23 PM LUMBER HACKER Yunior Haynes MD LAB - CHEMISTRY [facility]RIE SINCLAIR Performing Organization Address [facility] Co de Phone Number [address] [address], [facility] [phone] * EKG 12-LEAD (05/01/2020 3:05 PM LUMBER HACKER) Ventricular Rate 60 BPM [facility] Atrial Rate 60 BPM [facility] P-R Interval 166 ms [facility] QRS Duration ms 80 ms [facility] Q-T Interval ms 442 ms [facility] QTC Calculation (Bezet) 442 ms [facility] Calculated P [place] 61 degrees [facility] Calculated R [place] 2 degrees [facility] Calculated T Hastings 59 degrees [facility] Interpretation EKG NORMAL SINUS RHYTHM LOW VOLTAGE QRS POSSIBLE LATERAL INFARCT , AGE UNDETERMINED CANNOT RULE OUT INFERIOR INFARCT (CITED ON OR BEFORE 12-JUL-2000) ABNORMAL ECG WHEN COMPARED WITH ECG OF 13-JUL-2000 05:49, BORDERLINE CRITERIA FOR LATERAL INFARCT ARE NOW PRESENT Confirmed by fellow Jacek Finley ([id number]) on 05/02/2020 2:47:29 PM Confirmed by Nader Yeager ([id number]) on 05/20/2020 2:25:52 PM [facility] 05/01/2020 3:05 PM LUMBER HACKER 05/20/2020 2:25 PM LUMBER HACKER Yunior Haynes MD ECG ORDERABLES Performing Organization Address City/[facility]/ZIP Co de Phone Number [facility] Care Teams Supervisor Fish Hatchery Relationship Specialty Start Date End Date Devyn Fry MD [address] [place] [address] PCP - General Family Medicine 06/14/23
--- OUTSIDE RECORDS SUMMARY | 2024-09-06 10:48 | XMS_ITS | Patient Health Record ---
Author Organization [facility] Address [address] [place] [address] YENNY Najera [address] Care Team Providers Care Clinical Trial Assistant Name Role Phone DARRICK BAZAN ASHLEY Unavailable [...] (G57.91) Active confirmed Mononeuropathy of lower limb (929388616) Problem Spondylolisthesis , lumbar region (M43.16) Active confirmed Acquired spondylolisthesis (331945709) Problem Spondylosis without myelopathy or radiculopathy, lumbar region (M47.816) Active confirmed Lumbosacral spondylosis without myelopathy (24684607) Problem Spondylosis without myelopathy or radiculopathy, lumbosacral region (M47.817) Active confirmed Lumbosacral spondylosis without myelopathy (disorder) (17582076) Problem Other intervertebral disc degeneration, lumbar region (M51.36) Active confirmed Degeneration of lumbar intervertebral disc (57959989) Problem Radiculopathy, lumbar region (M54.16) Active confirmed Lumbar radiculopathy (841428931) Problem Radiculopathy, lumbosacral region (M54.17) Active confirmed Lumbosacral radiculopathy (9380422) Problem Sciatica, unspecified side (M54.30) Active confirmed Sciatica (61496787) Problem Sciatica, right side (M54.31) Active confirmed Right side sci atica (080981772687159) Problem Sciatica, left side (M54.32) Active confirmed Left side scia eleonora (222375347078537) Problem Osseous stenosis of neural canal of lumbar region (M99.33) Active confirmed Spinal stenosis of lumbar region (46168261) Problem Osseous and subluxation stenosis of intervertebral foramina of lumbar region (M99.63) Active confirmed Spinal stenosis of lumbar region (61747209) Problem intermediate frame tender (current) use of anticoagulants (Z79.01) Active confirmed Long-term curre nt use of anticoagulant (139079560) Problem Spinal stenosis, lumbar region with neurogenic 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) Active confirmed Neurogenic claudication (687995461) PLAN OF TREATMENT No Information Insurance Providers Payer Name Payer Address Payer Phone Subscriber Number Group Number Insured Name Patient Relationship to Insured Coverage Start Date Coverage End Date Medicare [place] [address] [address] [place] [address] [id number] JAYCE MOTT Self - patient is the insured [employer] [address] [place] [phone] [id number] JAYCE MOTT Self - patient is the insured MEDICAL (GENERAL) HISTORY Medical History History ICD Code Fatty liver Bradycardia Sleep apnea [place] CAD Anemia Hypertension Shingles Gout TIA Colon Cancer - In Remission Surgical History Surgery Date(Month/Year) PTCA x2 2000 Cholecystectomy 2009 Hernia repair 2014
--- OUTSIDE RECORDS SUMMARY | 2024-09-06 10:48 | XMS_ITS | Clinical Summary ---
Author Organization [facility] Address [address] [place] [address] Phone Care Team Providers Care Drywall Boardhanger Name Role Phone Devyn Fry MD Primary [...] Encounters Date Type Department Care Team Description 09/01/2024 External Device Data STL ABSTRACTION Provider, Abstract 08/31/2024 External Device Data STL ABSTRACTION Provider, Abstract 08/28/2024 External Device Data STL ABSTRACTION Provider, Abstract 08/22/2024 1:15 PM RETAIL PERSONAL BANKER Office Visit [facility] Oncology and Hematology - [place] [address] [address] [facility] [address] [place] [address] [place] [phone] Alvin Cueto MD Chronic anemia (Primary Dx) 08/14/2024 External Device Data STL ABSTRACTION Provider, Abstract 07/19/2024 External Device Data STL ABSTRACTION Provider, Abstract 07/18/2024 External Device Data STL ABSTRACTION Provider, Abstract 07/17/2024 External Device Data STL ABSTRACTION Provider, Abstract 07/10/2024 External Device Data STL ABSTRACTION Provider, Abstract from Last 3 Months Family History Medical [...] Smoking Tobacco: Former Cigarettes 1 30 1 2012 Smokeless Tobacco: Never Tobacco Cessation:Counseling Given: [...] Sign Reading Time Taken Comments Blood Pressure 112/67 08/22/2024 1:06 PM RETAIL PERSONAL BANKER Pulse 77 08/22/2024 1:06 PM RETAIL PERSONAL BANKER Temperature 35.6 C (96 F) 08/22/2024 1:06 PM RETAIL PERSONAL BANKER Respiratory Rate 15 08/22/2024 1:06 PM RETAIL PERSONAL BANKER Oxygen Saturation 93% 08/22/2024 1:06 PM RETAIL PERSONAL BANKER Inhaled Oxygen Concentration - - Weight 77.7 kg (171 lb 3.2 oz) 08/22/2024 1:06 P M RETAIL PERSONAL BANKER Height 160 cm (5' 3 ) 05/25/2022 1:47 PM RETAIL PERSONAL BANKER Body Mass Index 30.33 05/25/2022 1:47 PM RETAIL PERSONAL BANKER Plan of Treatment Upcoming Encounters Date Type Department Care Team (Late st Contact Info) Description 11/23/2024 12:15 PM CDT Office Visit [facility] Oncology and Hematology - [place] [address] [facility] [address] [place] [address] Alvin Cueto MD [address] [facility] [address] [place] [address] Health Maintenance Due Date Last Done Comments DTAP/TDAP/TD VACCINES (1 - Tdap) 1968 PNEUMOCOCCAL VACCINE 50+ YEARS (1 of 2 - PCV) 08/21/18 69 Traditional Medicare (ACO) Annual Wellness Visit 08/21 COLORECTAL SCREENING 1994 Colorectal Cancer Screening 1994 FIT-DNA Q 3 years 1994 FIT/FOBT Q 1 year 1994 Flex Sig/CT Colonography Q 5 years 1994 Lung Cancer Screening 1999 ZOSTER VACCINE (1 of 2) 1999 OSTEOPOROSIS SCREENING 2014 INFLUENZA VACCINE (#1) 2024 RSV VACCINE (60+ or ) (1 - 1-dose 75+ series) 2024 Insurance MEDICARE PART A AND B [employer] [facility] RX [facility] Medicare Part D MEDICARE PART A AND B PH[employer]ICIANS [facility] Care Teams Drywall Boardhanger Relationship Specialty Start Date End Date Devyn Fry MD [facility] [place] [address] PCP - General Family Practice 2/26/25
--- OUTSIDE RECORDS SUMMARY | 2024-09-06 10:49 | XMS_ITS | Continuity of Care Document ---
Author Organization [facility] Address [address] [place] [address] [place] [address] Phone Care Team Providers Care Skin Care Instructor Name Role Phone Frandy Barrera DO Unavailable Unavailable Advance Directives Directive Yes / No Effective Date File Name No Information Encounters Encounter Description Practice Location Reason(s) For Visit Diagnoses Date Provider Providers Copied on Encounter [facility], [address] [place], [place], [id number], [place] tel:[phone] SEC [facility] No Information Bruce Tabares. [address] [facility], [place], [address], [place]. tel: [phone] Family History Family Member Type Diagnosis Age At Onset No Information Payers Payer name Insurance type Covered libertarian ID Authoriza tion(s) No Information Social History [...]
--- OUTSIDE RECORDS SUMMARY | 2024-09-06 10:49 | XMS_ITS | Clinical Summary ---
Author Organization [facility] [place] [address] [address] Address [address] [place] [address] Care Team Providers Care Biomedical Engineer Name Role Phone Devyn Fry MD Primary Care Provider [phone] Allergies Active Allergy Reactions Criticality Noted Date [...] 20 mg tabletIndicatio ns:Coronary artery disease of [place] artery of [place] heart with stable angina pectoris Take 1 [...] artery disease of n ative artery of [place]annah[place] heart with stable angina pectoris 04/11/2024 Pancreatic cyst 12/22/2021 Overview (12/22/2021): Added automatically from request for surgery [id number] Encounters Date Type Department Care Team Description 08/20/2024 Telephone [facility] Medical [facility] Cardiology [address] [facility] [address] [place] [address] Halie Cai NP 08/07/2024 12:15 PM HOUSE DIRECTOR Office Visit [facility] [address] [place] [address] Stented coronary artery 07/30/2024 10:30 AM HOUSE DIRECTOR Ancillary Procedure [facility] Cardiology [address] [facility] [address] [place] [address] Positional lightheadedness 07/24/2024 Telephone [facility] Cardiology [address] [place] [address] Halie Cai NP 07/19/2024 11:00 AM HOUSE DIRECTOR Office Visit [facility] Cardiology [address] [place] [address] Halie Cai NP Positional lightheadedness (Primary Dx); Coronary artery disease involving hannahville coronary artery of [place] heart without angina pectoris; Stage 3b chronic kidney disease (HCC) 07/03/2024 2:00 PM HOUSE DIRECTOR Office Visit [facility] Cardiology [address] [place] [address] Halie Cai NP Positional lightheadedness (Primary Dx); Stage 3b chronic kidney disease (HCC); Coronary artery disease involving hannahville coronary artery of [place] heart without angina pectoris; Status post coronary angiogram; Presence of stent in coronary artery 06/29/2024 10:00 AM HOUSE DIRECTOR - 06/29/2024 11:[address] [facility] Surgery [facility] Cardiac Catheterization Lab [address] [place] [address] Austin Richrad MD RIGHT LEFT HEART CATHETERIZATION WITH CORONARY ANGIOGRAPHY GRAFT AND WITH OR WITHOUT LEFT VENTRICULOGRAPHY [id number] 06/29/2024 7:31 AM HOUSE DIRECTOR - 06/29/2024 5:12 PM HOUSE DIRECTOR Hospital Encounter [facility] Cardiac [facility]atheter[facility] [address] [place] [address] Austin Richard MD LÓPEZ (dyspnea on exertion); Coronary artery disease of [place] artery of [place] heart with stable angina pectoris Discharge Disposition: Discharge to home or self care from Last 3 Months Surgical History Surgery Date Site/Laterality Comments APPENDECTOMY Appendectomy CHOLECYSTECTOMY Cholecystectomy COLON SURGERY 06/27/2018 - 06/26/2019 HYSTERECTOMY HERNIA REPAIR Medical History Medical History Date Comments Hx Other Medical hx Gout; Commen ts: ELIANA 04/19/2014 - Chronic coronary artery disease Coronary artery disease Hypertension Hypertension Gastroesophageal reflux disease GERD Hx Other Medical hysterectomy wi th BSO; Comments: ELIANA 04/19/2014 - Hx Other Medical breast biopsy-b enign; Comments: ELIANA 04/19/2014 - Awareness under anesthesia Chronic diarrhea Colon cancer (HCC) Chronic kidney disease History of TIA [...] on file Legal Sex Female 7:57 AM HOUSE DIRECTOR Gender Identity Not on file Sexual Orientation Not on file Obstetrics History Last Filed Vital Signs Vital Sign Reading Time Taken Comments Blood Pressure 121/76 08/07/2024 12:00 PM HOUSE DIRECTOR Pulse 75 08/07/2024 12:00 PM HOUSE DIRECTOR Temperature 36.5 C (97.7 F) 06/29/2024 8:00 AM HOUSE DIRECTOR Respiratory Rate 18 08/07/2024 12:0 0 PM HOUSE DIRECTOR Oxygen Saturation 96% 08/07/2024 12: 00 PM HOUSE DIRECTOR Inhaled Oxygen Concentration - - Weight 78.4 kg (172 lb 12.8 oz) 025 12:00 PM HOUSE DIRECTOR Height 160 cm (5' 3 ) 08/07/2024 12:00 PM HOUSE DIRECTOR Body Mass Index 30.61 08/07/2024 12:00 PM HOUSE DIRECTOR Plan of Treatment Health Maintenance Due Date Last Done Comments Colon Cancer Screening-Colonoscopy 1950 Hepatitis C Screening [...] 08/07/2025 08/07/2024 Medical Devices Implanted Type Area Tdp Displays Analyst Device Identifier Shelf Expiration Date Model / Serial / Lot Medtronic Card Vasc Surgery 3.0 X 18mm [place]onia [place] Rx Coronary Stent [id number] - [id number] Implanted:Qty: 1 on 06/29/2024 by Austin Richard MD at [facility] Medtronic Card Vasc Surgery 03/01/2027 [id number] / / [id number] Reyes Vascular System Closure Repair Femoral Artery Suture Mediated Perclose Prostyle 27184-50 - [id number] Implanted:Qty: 1 on 06/29/2024 by Austin Richard MD at [facility] [employer]yes Vascular 04/26/2026 [id number] / / [id number] Access Closure Inc Mynx Control 6-7fr 2 Mode Balloon Catheter Sealant Lock Syringe [id number] - [id number] Implanted:Qty: 1 on 06/29/2024 by Austin Richard MD at [facility] Right: Vein Access Closure Inc 03/01/2026 [id number] / / [id number] Procedures Procedure Name Priority Date/Time Associated Diagnosis Comments MCT - MOBILE CARDIAC TELEMETRY EVENT MONITOR Routine 07/30/2024 10:38 AM HOUSE DIRECTOR Positional lightheadedness VASCULAR ACCESS US GUIDANCE Routine 06/29/2024 11:57 AM HOUSE DIRECTOR LÓPEZ (dyspnea on exertion) Coronary artery disease of [place] artery of [place] heart with stable angina pectoris CORONARY OCT, 1ST VESSEL Routine 06/29/2024 11:57 AM HOUSE DIRECTOR LÓPEZ (dyspnea on exertion) Coronary artery disease of [place] artery of [place] heart with stable angina pectoris PERCUTANEOUS CORONARY LITHROTRIPSY W/ PCI (+) [id number] Routine 06/29/2024 11:57 AM HOUSE DIRECTOR LÓPEZ (dyspnea on exertion) Coronary artery disease of [place] artery of [place] heart with stable angina pectoris ENRIQUE MAJOR CORONARY Routine 06/29/2024 11 :57 AM HOUSE DIRECTOR LÓPEZ (dyspnea on exertion) Coronary artery disease of [place] artery of [place] heart with stable angina pectoris RIGHT LEFT HEART CATHETERIZATION CORONARY GRAFT WITH WITHOUT LEFT VENTRICULOGRAPHY ANGIOGRAM Routine 06/29/2024 11:57 AM HOUSE DIRECTOR LÓPEZ (dyspnea on exertion) Coronary artery disease of [place] artery of [place] heart with stable angina pectoris POCT ACTIVATED CLOTTING TIME, HIGH RANGE Routine 06/29/2024 11:35 AM HOUSE DIRECTOR POCT ACTIVATED CLOTTING TIME, HIGH RANGE Routine 06/29/2024 11:14 AM HOUSE DIRECTOR MODERATE SEDATION SAME MD PETERSEN ADDL 15 MIN [id number] 06/29/2024 10:08 AM HOUSE DIRECTOR Coronary artery disease of [place] artery of [place] heart with stable angina pectoris MODERATE SEDATION 06/29/2024 10: 08 AM HOUSE DIRECTOR Coronary artery disease of [place] artery of [place] heart with stable angina pectoris EGFR STAT 06/29/2024 7:48 AM HOUSE DIRECTOR DIFFERENTIAL AUTO STAT 06/29/2024 7:4 8 AM HOUSE DIRECTOR CBC WITH AUTO DIFFERENTIAL STAT 06/29/2024 7:48 AM HOUSE DIRECTOR BASIC METABOLIC PANEL STAT 06/29/2024 7:48 AM HOUSE DIRECTOR from Last 3 Months Results * MCT Mobile Cardiac Telemetry Event Monitor (07/30/2024 10:38 AM HOUSE DIRECTOR) Anatomical Region Laterality Modality Electrocardiogra phy Narrative 09/05/2024 11:54 AM CDT AMBULATORY SECOND BALLER REPORT Patient Name: Hui Mott Date of [...] was used to complete this document, therefore, neuropsychology medical consultant variances may occur. Ken Roy MD, [facility] 09/05/24 Halie Cai NP CV CARDIAC SERVICES [facility] Final Result * RIGHT LEFT HEART CATHETERIZATION CORONARY GRAFT WITH WITHOUT LEFT VENTRICULOGRAPHY ANGIOGRAM, ENRIQUE MAJOR CORONARY, PERCUTANEOUS CORONARY LITHROTRIPSY W/ PCI (+) 71827, CORONARY OCT, 1ST VESSEL, VASCULAR ACCESS US GUIDANCE (06/29/2024 11:57 AM HOUSE DIRECTOR) Anatomical Region Laterality Modality X-Ray Angiograph y Narrative 06/29/2024 12:25 PM HOUSE DIRECTOR CARDIAC CATHETERIZATION REPORT Hui Mott IP ENCOUNTER: [id number] Date of Procedure: 06/29/2024 BIRTHDATE: 1950 SURFACE GRINDING MACHINE HAND: Austin Richard MD REFERRING PHYSICIAN: Dr. Cardona [...] patient. Patient was then brought into the laborer pullet farm and was draped and prepped in the usual manner. Moderate sedation was given and the right groin was subcutaneously injected with 1% lidocaine. The right femoral vein was accessed using a 7 Indonesian sheath via micropuncture needle and modified Seldinger technique under ultrasound guidance. The right common femoral artery was accessed using a 5Fr sheath via a micropuncture needle and modified Seldinger technique under ultrasound guidance. A 7 Indonesian Baker-Nikky catheter was advanced into the right atrium, [...] stent underexpansion. A 3.0 x 18mm Marcelo [place] ENRIQUE was deployed in the proximal RCA and post dilated with a 3.5 x 12mm NC balloon to high ryan with excellent angiographic results. Hemostasis was achieved with a Perclose device at the end of the procedure. CONCLUSIONS Successful IVUS guided and IVL shockwave assisted PCI to the proximal RCA ISR with a 3.0 x 18 [place] ENRIQUE; post dilated with a 3.5 x 12 NC balloon to high ryan with excellent angiographic results. PLAN Continue ASA 81mg PO daily Start clopidogrel 75mg PO daily Continue oral lasix and aggressive risk factor modification us Austin Richard MD CV CARDIAC CATH PROCEDURES Final Result * (ABNORMAL) POC Activated Clotting Time, High Range (06/29/2024 11:35 AM HOUSE DIRECTOR) ACT 211(H) 87 - 138 sec Blood 06/29/2024 11:3 5 AM HOUSE DIRECTOR 06/29/2024 11:35 AM HOUSE DIRECTOR us Austin Richard MD LAB BLOOD ORDERABLES Final Resul t [facility] [address] Department [place] [address] * (ABNORMAL) POC Activated Clotting Time, High Range (06/29/2024 11:14 AM HOUSE DIRECTOR) ACT 192(H) 87 - 138 sec Blood 06/29/2024 11:1 4 AM HOUSE DIRECTOR 06/29/2024 11:14 AM HOUSE DIRECTOR Austin Richard MD LAB BLOOD ORDERABLES Final Resul t Performing Organization Address [facility] Co de Phone Number [facility] [address] [place] [address] * (ABNORMAL) eGFR (06/29/2024 7:48 AM HOUSE DIRECTOR) eGFR 43(L) >=60 mL/min/1. 73 m2 Comment: [...] of Race in Diagnosing Kidney Disease, JASN 202). The CKD-EPI equation should not be used for patients with unstable renal function and has not been validated in children and those over 70. Current interpretive data was last reviewed 2021. Blood 06/29/2024 7:48 AM HOUSE DIRECTOR 06/29/2024 8:04 AM HOUSE DIRECTOR us Austin Richard MD LAB BLOOD ORDERABLES Final Resul t Performing Organization Address [facility] [place] [address] [address] Department [employer] [place] [address] * Differential, auto (06/29/2024 7:48 AM HOUSE DIRECTOR) Neutrophil abs 3.0 1.5 - 6.5 K/cumm Imm gran abs 0.0 0.0 - 0.1 K/cumm [facility] Lymphocyte abs 1.4 0.8 - 3.3 K/cumm [facility] Monocyte abs 0.6 0.2 - 0.8 K/cumm [facility] Eosinophil abs 0.1 0.0 - 0.5 K/cumm [facility] Basophil abs 0.1 0.0 - 0.1 K/cumm [facility] Neutrophil pct 58.1 % [facility] Comment: Interpretive Data Percent cell count reference ranges are not reported, since discordance with absolute values may lead to misinterpretation of CBC data. Current Interpretive Data was last revised on 2017. Imm gran pct 0.2 % [facility] Comment: Interpretive Data Percent cell count reference ranges are not reported, since discordance with absolute values may lead to misinterpretation of CBC data. Current Interpretive Data was last revised on 2017. Lymphocyte pct 26.4 % [facility] Comment: Interpretive Data Percent cell count reference ranges are not reported, since discordance with absolute values may lead to misinterpretation of CBC data. Current Interpretive Data was last revised on 2017. Monocyte pct 11.5 % [facility] Comment: Interpretive Data Percent cell count reference ranges are not reported, since discordance with absolute values may lead to misinterpretation of CBC data. Current Interpretive Data was last revised on 2017. Eosinophil pct 2.7 % [facility] Comment: Interpretive Data Percent cell count reference ranges are not reported, since discordance with absolute values may lead to misinterpretation of CBC data. Current Interpretive Data was last revised on 2017. Basophil pct 1.1 % [facility] Comment: Interpretive Data Percent cell count reference ranges are not reported, since discordance with absolute values may lead to misinterpretation of CBC data. Current Interpretive Data was last revised on 2017. Blood 06/29/2024 7:48 AM HOUSE DIRECTOR 06/29/2024 8:03 AM HOUSE DIRECTOR us Austin Richard MD LAB BLOOD ORDERABLES Final Resul t [facility] [place] [address] Department [place] [address] * (ABNORMAL) CBC with auto differential (06/29/2024 7:48 AM HOUSE DIRECTOR) Pathologist [facility] WBC 5.2 3.8 - 9.9 K/cumm Hgb [...] K/cumm [facility] Blood 06/29/2024 7:48 AM HOUSE DIRECTOR 06/29/2024 8:03 AM HOUSE DIRECTOR Narrative [facility] - 06/29/2024 8:08 AM HOUSE DIRECTOR If most recent labs were drawn prior to 4 AM, draw only prior to initiating procedure. Austin Richard MD LAB BLOOD ORDERABLES Final Resul t [facility] [place] [address] Department [place] [address] * (ABNORMAL) Basic metabolic panel (06/29/2024 7:48 AM HOUSE DIRECTOR) [facility] Sodium 141 135 - 145 mmol/L Potassium, pl 4.4 3.3 - 4.9 mmol/L [facility] Chloride 111(H) 97 - 110 mmol/L [facility] CO2 20(L) 22 - 32 mmol/L [facility] Anion gap 10 2 - 15 mmol/L [facility] BUN 23 6 - 25 mg/dL [facility] Creatinine 1.31(H) 0.60 - 1.10 mg/dL [facility] Glucose 78 70 - 199 mg/dL [facility] Comment: Interpretive Data Fasting glucose >/= [...] 2022. Calcium 10.1 8.5 - 10.3 mg/dL [facility] Blood 06/29/2024 7:48 AM HOUSE DIRECTOR 06/29/2024 8:04 AM HOUSE DIRECTOR us Austin Richard MD LAB BLOOD ORDERABLES Final Resul t Performing Organization Address City/State/[facility] Co de Phone Number [facility] [address] Department of Laboratories [place], [place] [phone] from Last 3 Months Insurance [employer]ANS [facility] [place] MEDICARE MEDICARE PHYSICIANS [employer] [facility] [address] MEDICARE PHYSICIANS [employer] Advance Directives For more information, please contact: [phone] * Full Code (Latest Code Status on File) Date Activated Date Inactivated Comments 06/29/2024 1:58 PM 06/29/2024 9:12 PM * Full Code Date Activated Date Inactivated Comments 01/15/2022 8:39 AM 01/15/2022 2:41 PM Care Teams Biomedical Engineer Relationship Specialty Start Date End Date Devyn Fry MD [address] [place] [address] PCP - General Family Medicine 04/11/24
[2024-09-06 10:58] LABS: Parathyroid Intact 95.3 pg/mL (14.5-75.2)
== END 2024-09-06 09:31 | disposition home or self-care (01) ==
PROVIDERS: PCP Family Medicine; Visit Provider Internal Medicine Nephrology
DX: D64.9 Anemia, unspecified (principal); R76.8 Other specified abnormal immunological findings in serum; R76.0 Raised antibody titer; N18.32 Chronic kidney disease, stage 3b; N18.9 Chronic kidney disease, unspecified; I50.9 Heart failure, unspecified; R06.02 Shortness of breath; R53.81 Other malaise
CPT/HCPCS: 36415; 80053; 82570; 83880; 83970; 84100; 84156; 85027

== ENCOUNTER 2024-10-31 21:33 | Emergency (ER) | payer MEDICARE, OTHER, SELFPAY ==
--- NOTE | ~2024-10-31 | XR_ITS ---
HISTORY: fall, pain COMPARISON: None TECHNIQUE: 2 views of the right tibia and fibula were performed FINDINGS: No acute or subacute fracture. Joint spaces are markedly narrowed with near complete obliteration of the medial and lateral tibiofem oral joint space. The alignment is maintained. Soft tissues are unremarkable without radiopaque foreign body or significant calcification. Age-appropriate mineralization. IMPRESSION: Degenerative disease, without acute fracture Reviewed, dictated and finalized at location A.
--- NOTE | ~2024-10-31 | XR_ITS ---
HISTORY: fall, pain COMPARISON: None TECHNIQUE: 3 views of the right knee were performed FINDINGS: No acute or subacute fracture. Medial and lateral tibiofemoral joint space narrowing is identified, with sclerosis of the tibial kishor teau. No suprapatellar joint effusion is identified. The infrapatellar joint space is clear. Ossification of the insertion of the quadriceps tendon is present. IMPRESSION: Degenerative disease, without acute fracture. Reviewed, dictated and finalized at location A.
--- OUTSIDE RECORDS SUMMARY | 2024-10-31 21:35 | XMS_ITS | Continuity of Care Document ---
Author Organization [facility] Address [address] [place] [address] [place] [address] Phone Care Team Providers Care Machine Precision Engraver Name Role Phone Frandy Barrera DO Unavailable Unavailable Advance Directives Directive Yes / No Effective Date File Name No Information Encounters Encounter Description Practice Location Reason(s) For Visit Diagnoses Date Provider Providers Copied on Encounter [facility], [address], [place], [place], [id number], [place] tel:[phone] [address] [facility] No Information Bruce Tabares. [address] [facility], [place], [address], [place]. tel: [phone] Family History Family Member Type Diagnosis Age [...]
--- OUTSIDE RECORDS SUMMARY | 2024-10-31 21:35 | XMS_ITS | CONTINUITY OF CARE DOCUMENT ---
Author Name sheila sosa Address Unknown Organization [facility] Address [address] [place] [address] [address] [place] [address] Phone [phone] Care Team Providers Care Fashion Director Name Role Phone Mariusz Padilla MD Unavailable [phone] Mariusz Padilla MD Unavailable [phone] PAMELA CHANG MD Unavailable [phone] PROBLEMS Condition Status Date Provider Notes Obesity active Mariusz Padilla MD Anemia, iron deficiency active Mariusz vallecillo MD CAD active Mariusz Padilla MD mild car otid plaqre Hyperlipidemia active Mariusz Padilla MD Tobacco use, quit active Mariusz Padilla MD Myocardial infarction, acute , anterior wall active Mariusz Padilla MD 2000 with vf arrest Sleep apnea active Mariusz Padilla MD FAMILY HISTORY OF HEART DISEASE active Mariusz Padilla MD dad hx of TIA;neg carotgid and tele active Mariusz Padilla MD Palpitations completed - Mariusz Padilla MD Emphysema active Mariusz Padilla MD Chest pain-type to be determined completed - Mariusz Padilla MD Bradycardia completed - Mariusz Padilla MD B12 deficiency active Mariusz mac Renal disease, chronic, mild;neg us and duplex active Mariusz Padilla MD Screening active Mariusz Padilla MD Valvular heart disease active Mariusz Padilla MD fatty liver active Mariusz Padilla MD Thyroid nodule active Mariusz Padilla MD Abnormal chest CT scan active Mariusz Padilla MD Hypertriglyceridemia active Mariusz Brady ENCOUNTERS Date Type Provider Location Encounter Diag nosis 3 - 3 In-person encounter Office Visit aMriusz Padilla MD [facility] CADhx of TIA;neg carotgid and telePalpitationsEmphysemaChest pain-type to be [id number] deficiencyRenal disease, chronic, mild;neg us and duplexScreeningValvular heart diseasefatty liverThyroid noduleAbnormal chest CT scanHypertriglyceridemia 2 - 2 In-person encounter Office Visit Mariusz Padilla MD [facility] ObesityAnemia, iron deficiencyCADHyperlipidemiaTobacco use, quitMyocardial infarction, acute, anterior wallSleep apneaFAMILY HISTORY OF HEART DISEASEhx of TIA;neg carotgid and teleEmphysema VITAL SIGNS Date Observation Value Provider Body Mass Index (Ratio) 35.60 kg/m2 oRsanna Padilla MD blood pressure, cuff size regular Cr ihsan Murray blood pressure, diastolic 60 mm[Hg] Cr ihsan Murray blood pressure, systolic 130 mm[Hg] Cry stamelanie Murray oxygen saturation, oximetry 98 % Martha Murray respiratory rate E&M 17 /min Martha Murray pulse rate 54 /min Martha rivers weight E&M 201 [lb_av] Martha rivers height E&M 63 [in_i] Martha rivers Body Mass Index (Ratio) 35.60 kg/m2 Rosanna Padilla MD blood pressure, diastolic 80 mm[Hg] Kr isty Lima blood pressure, systolic 140 mm[Hg] Lennoxi stfaith Severino pulse rate 51 /min Isadora Emby oxygen saturation, oximetry 97 % Isadora Severino [...] iron binding capacity, unsaturated 218 ug/dL [employer] [phone]/09/0 4 iron binding capacity, total 295 ug/dL [facility] [phone]/09/0 4 lipoprotein, beta, serum, point, quantitative, calculated 59 mg/dL [facility] 0-99 4 very low density lipoproteins 74 mg/dL [facility] 5-40 High 4 HDL cholesterol, serum 34 mg/dL [facility] >39 Low 4 triglyceride, serum, random 370 mg/dL [facility] 0-149 High 4 cholesterol, serum 167 mg/dL [facility] [phone]/07/2 3 pro brain natriuretic peptide 282 pg/mL [...] Estab. 3 platelet count 309 X10E3/UL [facility] [phone]/07/2 3 red blood cell distribution width 20.4 [...] 3.5-5.2 3 sodium, serum 142 mmol/L [employer] [phone]/07/2 3 urea nitrogen/creatinine ratio, serum 20 [employer] [...] take one tablet by mouth once daily [facility] CVS FISH OIL 1000 MG ORAL CAPSULE active take one tablet by mouth once daily [facility] ADULT ASPIRIN REGIMEN 81 MG ORAL TABLET DELAYED RELEASE active take one tablet by mouth once daily [facility] CO Q 10 100 MG ORAL CAPSULE active take one tablet by mouth once daily [facility] SIMVASTATIN 20 MG ORAL TABLET active take [...] Policy type / Coverage type [place] [id number] [employer] Other 1 [id number] TREATMENT PLAN Date Name Performer Cardiology:to have [...] Mariusz Padilla MD Date Name DLCO - 07638 FRC - 31134 FVC - 72986 IRON AND TOTAL IRON BINDING CAPACITY FERRITIN [...]
--- OUTSIDE RECORDS SUMMARY | 2024-10-31 21:35 | XMS_ITS | Encounter Summary ---
Author Organization [facility] Healthcare Address [address] [place] [address] Care Team Providers Care Intermediate Card Tender Name Role Phone Devyn Fry MD Primary Care Provider [phone] Encounter Details Date Type Department Care Team (Late st Contact Info) Description 09/06/2024 Results Follow-Up [facility] Cardiology [address] [address] [address] [place] [address] Halie Cai NP [address] [facility] [address] [place] [address] Social History Tobacco Use Types Packs/Day Years [...] on file Legal Sex Female 7:57 AM NUCLEAR WASTE MANAGEMENT ENGINEER Gender Identity Not on file Sexual Orientation Not on file documented as of this encounter Plan of Treatment Not on file documented as of this encounter Visit Diagnoses Not on filedocumented in this encounter Care Teams Intermediate Card Tender Relationship Specialty Start Date End Date Devyn Fry MD [address] [place] [address] PCP - General Family Medicine 04/11/24 documented as of this encounter
--- OUTSIDE RECORDS SUMMARY | 2024-10-31 21:35 | XMS_ITS | Patient Health Record ---
Author Organization [facility] Address [address] [place] [address] YENNY Najera [address] Care Team Providers Care Repairer Welding Systems And Equipment Name Role Phone DARRICK BAZAN ASHLEY Unavailable [...] (G57.91) Active confirmed Mononeuropathy of lower limb (232432362) Problem Spondylolisthesis , lumbar region (M43.16) Active confirmed Acquired spondylolisthesis (997455196) Problem Spondylosis without myelopathy or radiculopathy, lumbar region (M47.816) Active confirmed Lumbosacral spondylosis without myelopathy (73455758) Problem Spondylosis without myelopathy or radiculopathy, lumbosacral region (M47.817) Active confirmed Lumbosacral spondylosis without myelopathy (disorder) (04661898) Problem Other intervertebral disc degeneration, lumbar region (M51.36) Active confirmed Degeneration of lumbar intervertebral disc (36699647) Problem Radiculopathy, lumbar region (M54.16) Active confirmed Lumbar radiculopathy (494828475) Problem Radiculopathy, lumbosacral region (M54.17) Active confirmed Lumbosacral radiculopathy (7465760) Problem Sciatica, unspecified side (M54.30) Active confirmed Sciatica (54157163) Problem Sciatica, right side (M54.31) Active confirmed Right side sci atica (043989474721288) Problem Sciatica, left side (M54.32) Active confirmed Left side scia eleonora (363271132604021) Problem Osseous stenosis of neural canal of lumbar region (M99.33) Active confirmed Spinal stenosis of lumbar region (39187985) Problem Osseous and subluxation stenosis of intervertebral foramina of lumbar region (M99.63) Active confirmed Spinal stenosis of lumbar region (99389143) Problem assisted (current) use of anticoagulants (Z79.01) Active confirmed Long-term curre nt use of anticoagulant (802022899) Problem Spinal stenosis, lumbar region with neurogenic 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) Active confirmed Neurogenic claudication (308597241) PLAN OF TREATMENT No Information Insurance Providers Payer Name Payer Address Payer Phone Subscriber Number Group Number Insured Name Patient Relationship to Insured Coverage Start Date Coverage End Date Medicare [place] [address] [address] [place] [address] [phone] [id number] JAYCE MOTT Self - patient is the insured [employer] [address] [place] [phone] [id number] JAYCE MOTT Self - patient is the insured MEDICAL (GENERAL) HISTORY Medical History History ICD Code Fatty liver Bradycardia Sleep apnea [place] CAD Anemia Hypertension Shingles Gout TIA Colon Cancer - In Remission Surgical History Surgery Date(Month/Year) PTCA x2 2000 Cholecystectomy 2009 Hernia repair 2014
--- OUTSIDE RECORDS SUMMARY | 2024-10-31 21:36 | XMS_ITS | Clinical Summary ---
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 Take 1 [...] artery disease of n ative artery of ak chin heart with stable angina pectoris 04/11/2024 Pancreatic cyst 12/22/2021 Overview (12/22/2021): Added automatically from request for surgery [id number] Encounters Date Type Department Care Team Description 09/06/2024 Results Follow-Up [facility] Cardiology [address] [place] [address] Halie Cai NP 08/20/2024 Telephone [facility] Cardiology [address] [place] [address] Halie Cai NP 08/07/2024 12:15 PM BALING MACHINE OPERATOR Office Visit [facility] [address] [place] [address] Stented coronary artery from Last 3 Months Surgical History Surgery Date Site/Laterality Comments APPENDECTOMY Appendectomy CHOLECYSTECTOMY Cholecystectomy COLON SURGERY 06/27/2018 - 06/26/2019 HYSTERECTOMY HERNIA REPAIR Medical History Medical History Date Comments Hx Other Medical hx Gout; Commen ts: [facility] 04/19/2014 - Chronic coronary artery disease Coronary artery disease Hypertension Hypertension Gastroesophageal reflux disease GERD Hx Other Medical hysterectomy wi th BSO; Comments: [facility] 04/19/2014 - Hx Other Medical breast biopsy-b enign; Comments: [facility] 04/19/2014 - Awareness under anesthesia Chronic diarrhea [...] on file Legal Sex Female 7:57 AM BALING MACHINE OPERATOR Gender Identity Not on file Sexual Orientation Not on file Obstetrics History Last Filed Vital Signs Vital Sign Reading Time Taken Comments Blood Pressure 121/76 08/07/2024 12:00 PM BALING MACHINE OPERATOR Pulse 75 08/07/2024 12:00 PM BALING MACHINE OPERATOR Temperature 36.5 C (97.7 F) 06/29/2024 8:00 AM BALING MACHINE OPERATOR Respiratory Rate 18 08/07/2024 12:0 0 PM BALING MACHINE OPERATOR Oxygen Saturation 96% 08/07/2024 12: 00 PM BALING MACHINE OPERATOR Inhaled Oxygen Concentration - - Weight 78.4 kg (172 lb 12.8 oz) 025 12:00 PM BALING MACHINE OPERATOR Height 160 cm (5' 3 ) 08/07/2024 12:00 PM BALING MACHINE OPERATOR Body Mass Index 30.61 08/07/2024 12:00 PM BALING MACHINE OPERATOR Plan of Treatment Health Maintenance Due Date [...] 04/25/2021, 09/09/2020, Additional history exists Influenza Vaccine (Season Ended) 2025 04/23/2021, 04/03/2019, 04/14/2018, Additional history exists Fall Risk Assessment 06/29/2025 06/29/2024 Depression Screening 08/07/2025 08/07/2024 Medical Devices Implanted Type Area Riddler Operator Device Identifier Shelf Expiration Date Model / Serial / Lot Medtronic Card Vasc Surgery 3.0 X 18mm Marcelo [place] Rx Coronary Stent [id number] - [id number] Implanted:Qty: 1 on 06/29/2024 by Austin Richard MD at [facility] Medtronic Card Vasc Surgery 03/01/2027 [id number] / / [id number] 2000 Reyes Vascular System Closure Repair Femoral Artery Suture Mediated Perclose Prostyle 69922-71 - [id number] Implanted:Qty: 1 on 06/29/2024 by Austin Richard MD at [facility] Reyes Vascular 04/26/2026 [id number] / / [id number] Access Closure Inc Mynx Control 6-7fr 2 Mode Balloon Catheter Sealant Lock Syringe [id number] - [id number] Implanted:Qty: 1 on 06/29/2024 by Austin Richard MD at [facility] Right: Vein Access Closure Inc 03/01/2026 [id number] / / [id number] Insurance [facility] [place] MEDICARE MEDICARE [employer] LIFE INS [place] Member Subscriber Plan / Payer (Ef fective 2014-Present) Name:Jayce Mott Relation to Subscriber:Self Name:Jayce Mott Payer ID:[id number] Group ID:Not on file Type:COMMERCIAL Address: [facility] [address] [place] MEDICARE PHYSICI[employer] LIFE INS [place] Member Subscriber Plan / Payer (Ef fective 2014-Present) Name:Jayce Mott Relation to Subscriber:Self Name:Jayce Mott Payer ID:[id number] Group ID:Not on file Type:COMMERCIAL Address: [facility] [address] [place] Advance Directives For more information, please contact: [phone] * Full Code (Latest Code Status on File) Date Activated Date Inactivated Comments 06/29/2024 1:58 PM 06/29/2024 9:12 PM * Full Code Date Activated Date Inactivated Comments 01/15/2022 8:39 AM 01/15/2022 2:41 PM Care Teams Respiratory Support Technician Relationship Specialty Start Date End Date Devyn Fry MD [address] [place] [address] PCP - General Family Medicine 04/11/24
--- OUTSIDE RECORDS SUMMARY | 2024-10-31 21:36 | XMS_ITS | Clinical Summary ---
Author Organization [facility] Address [facility] [place] [place] [address] Care Team Providers Care Laboratory Animal Care Veterinarian Name Role Phone Devyn Fry MD Primary Care Provider [phone] Allergies Active Allergy Reactions Criticality Noted Date [...] 07/02/19 24 Active neomycin-polymy lavonne-dexamethaso ne (MAXITROL) 3.5-72367-0.1 Ointment APPLY THIN RIBBON ON UPPER AND [...] Comments Blood Pressure 109/70 06/04/2024 7:38 AM COUNTY SURVEYOR Pulse 75 06/04/2024 7:38 AM COUNTY SURVEYOR Temperature - - Respiratory Rate - - Oxygen Saturation 98% 06/04/2024 7:38 AM COUNTY SURVEYOR Inhaled Oxygen Concentration - - Weight 75.8 kg (167 lb) 06/04/2024 7:38 AM COUNTY SURVEYOR Height 160 cm (5' 3 ) 06/04/2024 7:38 AM COUNTY SURVEYOR Body Mass Index 29.58 06/04/2024 7:38 AM COUNTY SURVEYOR Plan of Treatment Health Maintenance Due Date Last Done Comments Colorectal Cancer Screening Colonoscopy (10 Years) 1949 Hepatitis C 1967 DTaP, Tdap and Td Vaccines (1 - Tdap) 1968 Annual Medicare Wellness Visit 2014 Dexa Scan (General) 2014 PHQ-2 (Physician [place]) 06/27/2024 06/04/2024 COVID-19 Vaccine ( season) 2024 03/13/2024, 03/18/2023, 03/22/2022, Additional history exists Zoster Vaccines Completed 12/29/2022, 10/27/2022 Pneumococcal Vaccine: 50+ Years Completed 02/07/2024, 04/03/2019 RSV Immunization or 60+ Years Completed 02/07/2024, 02/12/2023 Meningococcal B Vaccine Aged Out No l onger eligible based on patient's age to complete this topic Meningococcal Vaccine Aged Out No kelli kellen eligible based on patient's age to complete this topic RSV Immunizations Under 20 Months Aged Out No longer eligible based on patient's age to complete this topic Insurance MEDICARE [employer] Care Teams Laboratory Animal Care Veterinarian Relationship Specialty Start Date End Date Devyn Fry MD [address] [place] [address] PCP - General FAMILY PRACTICE 02/09/24
--- OUTSIDE RECORDS SUMMARY | 2024-10-31 21:36 | XMS_ITS | Clinical Summary ---
Author Organization [facility] Address [address] [facility] [address] Care Team Providers Care Hospital Mortician Name Role Phone Devyn Fry MD Primary Care Provider [phone] Source Comments [facility],non-owned Affiliates and Associated Physician Practices is amultiple site organization consisting of ambulatory clinics and hospital sitesin [place], [place], [place] and [place]. This disclosure is being madepursuant to the Care Everywhere program and may not contain all information available regarding this patient. Last updated 18.[facility] Allergies Active Allergy Reactions Criticality Noted Date Comments Ciprofloxacin Vomiting 12/16/2019 Fenofibrate Vomiting 12/16/2019 Ibuprofen Vomiting 12/16/2019 Penicillins Rash Medium 12/16/2019 Quinolones Vomiting 12/16/2019 Medications * Be aware that medications may not be up to date on this document. Alwaysverify current medications with the patient. rosuvastatin (CRESTOR) 10 MG tablet Take 2 [...] (one) tablet by mouth 2 times daily 3 Active cyanocobalamin (Vitamin B-12) 1000 MCG tablet Take 1 (one) tablet by mouth once daily Active aspirin (Aspirin) 325 MG tablet Take 1 (one) tablet by mouth once daily Active metoprolol tartrate IR (Lopressor) 25 MG tablet Take 1 (one) tablet by mouth once daily 4 Active multivitamin daily tablet Take 1 (one) tablet by mouth daily with food Active zolpidem (Ambien) 5 MG tablet Take 1 (one) tablet by mouth at bedtime 3 Active Family History Medical History Relation Name [...] of Binge Drinking Not on file 10/2019 Comments No Sex and Gender Information Value Date Recorded Sex Assigned at Not on file Legal Sex Female 6:22 AM ACQUISITION COST ESTIMATOR Gender Identity Not on file Sexual Orientation Not on file Last Filed Vital Signs Vital Sign Reading Time Taken Comments Blood Pressure 100/60 08/29/2023 11:38 AM ACQUISITION COST ESTIMATOR Pulse 64 08/29/2023 11:38 AM ACQUISITION COST ESTIMATOR Temperature 36.7 C (98 F) 05/01/2020 6:46 PM ACQUISITION COST ESTIMATOR Respiratory Rate 14 08/29/2023 11:38 AM ACQUISITION COST ESTIMATOR Oxygen Saturation 95% 08/29/2023 11:38 AM ACQUISITION COST ESTIMATOR Inhaled Oxygen Concentration - - Weight 74.4 kg (164 lb) 08/29/2023 11:38 AM ACQUISITION COST ESTIMATOR Height 160 cm (5' 3 ) 08/29/2023 11:38 AM ACQUISITION COST ESTIMATOR Body Mass Index 29.05 08/29/2023 11:38 AM ACQUISITION COST ESTIMATOR Plan of Treatment Health Maintenance Due Date [...] VACCINE (1 - 2023-2 5 season) 2024 DEPRESSION SCREENING 06/27/2024 Respiratory Syncytial Virus (RSV) Vaccine Pt: or over 60 yrs (1 - 1-dose 75+ series) 2024 INFLUENZA VACCINE (Season Ended) 2025 HEPATITIS B VACCINE Aged Out No longe [...] patient's age to complete this topic Insurance [address] [place] [id number] MEDICARE [employer] [place] Member Subscriber Plan / Payer (Ef fective 2019-Present) Name:Jayce Mott Relation to Subscriber:Self Name:JAYCE MOTT Payer ID:Not on file Group ID:PLAN N Type:Commercial Address: [facility] [address] MEDICARE [employer]YSIC[employer] Member Subscriber Plan / Payer (Ef fective 2014-Present) Name:Jayce Mott Relation to Subscriber:Self Name:SabamelanieJayce [place] Payer ID:Not on file Group ID:PLAN N Type:Commercial Address: [facility] [address] MEDICARE Care Teams Hospital Mortician Relationship Specialty Start Date End Date Devyn Fry MD [address] [place] [address] PCP - General Family Medicine 06/14/23
--- OUTSIDE RECORDS SUMMARY | 2024-10-31 21:36 | XMS_ITS | Clinical Summary ---
Author Organization [facility] Address [address] [place] [address] Phone Care Team Providers Care Line Assembler Aircraft Name Role Phone Devyn Fry MD Primary Care Provider [phone] Allergies Active Allergy Reactions Criticality Noted Date [...] Encounters Date Type Department Care Team Description 09/12/2024 External Device Data STL ABSTRACTION Provider, Abstract 09/01/2024 External Device Data STL ABSTRACTION Provider, Abstract 08/31/2024 External Device Data [place] ABSTRACTION Provider, Abstract 08/28/2024 External Device Data [place] ABSTRACTION Provider, Abstract 08/22/2024 1:15 PM MARKETING SUPPORT MANAGER Office Visit [facility] Oncology and Hematology - [facility] Bryanna Montalvo [address] [place] [phone] Alvin Cueto MD Chronic anemia (Primary Dx) [...] Years Used Date Smoking Tobacco: Former Cigarettes 2012 Smokeless Tobacco: Never Tobacco Cessation:Counseling Given: [...] Comments Blood Pressure 112/67 08/22/2024 1:06 PM MARKETING SUPPORT MANAGER Pulse 77 08/22/2024 1:06 PM MARKETING SUPPORT MANAGER Temperature 35.6 C (96 F) 08/22/2024 1:06 PM MARKETING SUPPORT MANAGER Respiratory Rate 15 08/22/2024 1:06 PM MARKETING SUPPORT MANAGER Oxygen Saturation 93% 08/22/2024 1:06 PM MARKETING SUPPORT MANAGER Inhaled Oxygen Concentration - - Weight 77.7 kg (171 lb 3.2 oz) 08/22/2024 1:06 P M MARKETING SUPPORT MANAGER Height 160 cm (5' 3 ) 05/25/2022 1:47 PM MARKETING SUPPORT MANAGER Body Mass Index 30.33 05/25/2022 1:47 PM MARKETING SUPPORT MANAGER Plan of Treatment Upcoming Encounters Date Type Department Care Team (Late st Contact Info) Description 11/23/2024 12:15 PM CDT Office Visit [facility] Oncology and Hematology - S[facility] [address] [facility] [address] [place] [address] Alvin Cueto MD [address] [facility] [address] [place] [address] Health Maintenance Due Date Last Done Comments DTAP/TDAP/TD VACCINES (1 - Tdap) 1968 PNEUMOCOCCAL VACCINE 50+ YEARS (1 of 2 - PCV) 08/21/18 69 COLORECTAL SCREENING 1994 Colorectal Cancer Screening 1994 FIT-DNA Q 3 years 1994 FIT/FOBT Q 1 year 1994 Flex Sig/CT Colonography Q 5 years 1994 Lung Cancer Screening 1999 ZOSTER VACCINE (1 of 2) 1999 OSTEOPOROSIS SCREENING 2014 INFLUENZA VACCINE (#1) 2024 RSV VACCINE (60+ or ) (1 - 1-dose 75+ series) 2024 Insurance MEDICARE PART A AND B [employer] [facility] Medicare Part D [address] [place] [address] MEDICARE PART A AND B [employer]YSICI[employer] SUPP Care Teams Line Assembler Aircraft Relationship Specialty Start Date End Date Devyn Fry MD [facility] [place] [address] PCP - General Family Practice 08/22/24
--- OUTSIDE RECORDS SUMMARY | 2024-10-31 21:36 | XMS_ITS | Patient Health Record ---
Author Organization [facility] Address [address] [facility] [address] [address] [place] [address] Care Team Providers Care Bolt Header Name Role Phone Ramos Vera MD Primary [...] Problem Status W/U Status Risk Notes Problem [id number] History of colon cancer (Z85.038) Active confirmed Plan Of Treatment Pending Test Test Name Order Date EUS 11/26/2021 Insurance Providers Payer Name Payer Address Payer Phone Subscriber Number Group Number Insured Name Patient Relationship to Insured Coverage Start Date Coverage End Date Medicare E2 [address] [address] [place] [address] [id number] Hui Dominguez Self - patient is the insured Physician [place] [address] [place] [phone] [id number] Angelica Hui Self - patient is the [...]
--- OUTSIDE RECORDS SUMMARY | 2024-10-31 21:36 | XMS_ITS | Referral Summary ---
Author Organization [facility] [address] [place] [address] [address] [place] [address] Care Team Providers Care Dinkey Driver Name Role Phone Devyn Fry MD Primary Care Provider [phone] Encounters Date Type Department Care Team Description 09/06/2024 Results Follow-Up [facility] Cardiology [address] [facility] [address] [place] [address] Halie Cai NP 08/20/2024 Telephone [facility] Cardiology [address] [facility] [address] [place] [address] Halie Cai NP 08/07/2024 12:15 PM EMBRYOLOGY PROFESSOR Office Visit [facility] [address] [place] [address] Stented coronary artery from Last 3 Months Allergies Active Allergy [...] 20 mg tabletIndicatio ns:Coronary artery disease of tun[place]-biloxi artery of [place] heart with stable angina pectoris Take 1 [...] chronic kidney disease 07/03/2024 Chronic anemia 07/03/2024 ÓLPEZ (dyspnea on exertion) 04/11/2024 Palpitations 04/11/2024 History of transient ischemic attack 04/11/2024 Former smoker 04/11/2024 Hyperlipidemia LDL goal <70 04/11/2024 Essential hypertension 04/11/2024 Coronary artery disease of n ative artery of tunica-biloxi heart with stable angina pectoris 04/11/2024 Pancreatic cyst 12/22/2021 Overview (12/22/2021): Added automatically from request for surgery [id number] Social History Tobacco Use Types Packs/Day Years [...] on file Legal Sex Female 7:57 AM EMBRYOLOGY PROFESSOR Gender Identity Not on file Sexual Orientation Not on file Last Filed Vital Signs Vital Sign Reading Time Taken Comments Blood Pressure 121/76 08/07/2024 12:00 PM EMBRYOLOGY PROFESSOR Pulse 75 08/07/2024 12:00 PM EMBRYOLOGY PROFESSOR Temperature 36.5 C (97.7 F) 06/29/2024 8:00 AM EMBRYOLOGY PROFESSOR Respiratory Rate 18 08/07/2024 12:0 0 PM EMBRYOLOGY PROFESSOR Oxygen Saturation 96% 08/07/2024 12: 00 PM EMBRYOLOGY PROFESSOR Inhaled Oxygen Concentration - - Weight 78.4 kg (172 lb 12.8 oz) 025 12:00 PM EMBRYOLOGY PROFESSOR Height 160 cm (5' 3 ) 08/07/2024 12:00 PM EMBRYOLOGY PROFESSOR Body Mass Index 30.61 08/07/2024 12:00 PM EMBRYOLOGY PROFESSOR Plan of Treatment Not on file Medical Devices Implanted Type Area Social Studies Teacher Device Identifier Shelf Expiration Date Model / Serial / Lot [employer] [facility] Surgery 3.0 X 18mm Marcelo [place] Rx Coronary Stent [id number] - [id number] Implanted:Qty: 1 on 06/29/2024 by Austin Richard MD at [facility] Medtronic Card [facility] Surgery 03/01/2027 [id number] / / [id number] 2000 Reyes Vascular System Closure Repair Femoral Artery Suture Mediated Perclose Prostyle 67831-03 - [id number] Implanted:Qty: 1 on 06/29/2024 by Austin Richard MD at [facility] Reyes Vascular 04/26/2026 [id number] / / [id number] Closure Inc Mynx Control 6-7fr 2 Mode Balloon Catheter Sealant Lock Syringe [id number] - [id number] Implanted:Qty: 1 on 06/29/2024 by Austin Richard MD at [facility] Right: Vein Access Closure Inc 03/01/2026 [id number] / / [id number] Insurance [facility] [place] MED[place] MEDICARE [employer] [place] MEDICARE PHYSICI[employer] LIFE [place] Member Subscriber Plan / Payer (Ef fective 2014-Present) Name:Jayce Mott Relation to Subscriber:Self Name:Jayce Mott Payer ID:[id number] Group ID:Not on file Type:COMMERCIAL Address: [address] [place], [place] Advance Directives For more information, please contact: [phone] * Full Code (Latest Code Status on File) Date Activated Date Inactivated Comments 06/29/2024 1:58 PM 06/29/2024 9:12 PM * Full Code Date Activated Date Inactivated Comments 01/15/2022 8:39 AM 01/15/2022 2:41 PM Care Teams Dinkey Driver Relationship Specialty Start Date End Date Devyn Fry MD [address] [place] [address] PCP - General Family Medicine 04/11/24
[2024-10-31 21:37] VITALS: BP 152/77; PULSE 84; RESP 20; TEMP 36.6; O2SAT 96
--- OUTSIDE RECORDS SUMMARY | 2024-10-31 21:48 | XMS_ITS | Continuity of Care Document ---
Author Organization [facility] Address [address] [place] [address] [place] [address] Phone Care Team Providers Care Regional Climate Change Analyst Name Role Phone Frandy Barrera DO Unavailable Unavailable Advance Directives Directive Yes / No Effective Date File Name No Information Encounters Encounter Description Practice Location Reason(s) For Visit Diagnoses Date Provider Providers Copied on Encounter [facility], [address], [place], [place], [id number], [place] tel:[phone] No Information Bruce Tabares. [address] [facility], [place], [address], [place]. tel: [phone] Family History Family Member Type Diagnosis Age At Onset No Information Payers Payer name Insurance type Covered republican ID Authoriza tion(s) No Information Social History [...]
--- OUTSIDE RECORDS SUMMARY | 2024-10-31 21:48 | XMS_ITS | CONTINUITY OF CARE DOCUMENT ---
Author Name sheila sosa Address Unknown Organization [facility] Address [address] [place] [address] [address] [place] [address] Phone [phone] Care Team Providers Care Grinding Supervisor Name Role Phone Mariusz Padilla MD Unavailable [phone] Mariusz Padilla MD Unavailable PAMELA CHANG MD Unavailable [phone] PROBLEMS Condition Status Date Provider Notes Obesity [...] In-person encounter Office Visit Mariusz Padilla MD [facility] CADhx of TIA;neg carotgid and telePalpitationsEmphysemaChest pain-type to be vjeqhbupizPjsxyyteuauM41 deficiencyRenal disease, chronic, mild;neg us and duplexScreeningValvular [...] blood pressure, diastolic 80 mm[Hg] Kr isty [place] blood pressure, systolic 140 mm[Hg] [place] stfaith [...] iron binding capacity, unsaturated 218 ug/dL LinkLog[facility] 299-292 2006/09/0 4 iron binding capacity, total 295 ug/dL [facility]Log[facility] 210-660 8220/09/0 4 lipoprotein, beta, serum, point, quantitative, calculated 59 mg/dL [facility]Log[facility] 0-99 4 very low density lipoproteins 74 mg/dL [facility] 5-40 High 4 HDL cholesterol, serum 34 mg/dL [facility] >39 Low 4 triglyceride, serum, random 370 mg/dL [facility] 0-149 High 4 cholesterol, serum 167 mg/dL [facility] 772-088 4084/07/2 3 pro brain natriuretic peptide 282 pg/mL [...] Estab. 3 platelet count 309 X10E3/UL [facility]Log[facility] 808-842 8344/07/2 3 red blood cell distribution width 20.4 [...] 3.5-5.2 3 sodium, serum 142 mmol/L [facility]Log[facility] 355-827 8360/07/2 3 urea nitrogen/creatinine ratio, serum 20 LinkLogic [...] take one tablet by mouth once daily [facility] CVS FISH OIL 1000 MG ORAL CAPSULE active take one tablet by mouth once daily [facility] ADULT ASPIRIN REGIMEN 81 MG ORAL TABLET DELAYED RELEASE active take one tablet by mouth once daily [facility] CO Q 10 100 MG ORAL CAPSULE active take one tablet by mouth once daily [facility] SIMVASTATIN 20 MG ORAL TABLET active [...] Policy type / Coverage type Kenny red alliance party [place] MED[place] B Medicare [id number] [employer] Other 1 [id number] TREATMENT PLAN Date Name Performer Cardiology:to have [...] Mariusz Padilla MD Date Name DLCO - 32353 FRC - 64776 FVC - 36787 IRON AND TOTAL IRON BINDING CAPACITY FERRITIN [...]
--- NOTE | 2024-10-31 23:15 | ED.LOWEXIN ---
HPI - Extremity Injury (Lower) General Chief Complaint: Extremity Injury, Lower Stated Complaint: injury to right leg from fall today Time Seen by Provider: 10/31/24 21:39 History of Present Illness HPI Narrative: Patient is a 74-year-old female who presents to the ER following a right leg injury. She reports she tripped over her rowing machine and landed on it. Patient endorses pain to her right anterior knee and right anterior charles. She endorses a history of low blood pressure and cardiac stents. Patient reports she is also on blood thinners. She denies any uncontrolled bleeding, decreased range of motion, ankle pain, numbness/tingling in her extremities. Related Data Home Medications ?Medication ?Instructions ?Recorded ?Confirmed ?Last Taken ?Type furosemide 20 mg tablet (Lasix) 20 mg PO DAILY 07/13/19 10/27/24 06/01/22 History omeprazole 40 mg capsule,delayed 40 mg PO DAILY 07/13/19 10/27/24 06/01/22 History release allopurinol 300 mg tablet 300 mg PO DAILY 03/20/24 10/27/24 Unknown History coenzyme Q10 75 mg capsule (Ultra 75 mg PO DAILY 03/20/24 10/27/24 Unknown History CoQ10) cyclobenzaprine 10 mg tablet 10 mg PO TID 03/20/24 10/27/24 Unknown History melatonin 10 mg capsule 10 mg PO QHS 03/20/24 10/27/24 Unknown History potassium citrate 99 mg capsule 99 mg PO DAILY 03/20/24 10/27/24 Unknown History sour ruffin extract 1,000 mg 1,000 mg PO DAILY 03/20/24 10/27/24 Unknown History capsule (Tart Ruffin Extract) atorvastatin 20 mg tablet 20 mg PO DAILY 06/18/24 10/27/24 Unknown History aspirin 81 mg tablet,delayed 81 mg PO DAILY 08/13/24 10/27/24 Unknown History release clopidogrel 75 mg tablet 75 mg PO DAILY 08/13/24 10/27/24 Unknown History Allergies Allergy/AdvReac Type Severity Reaction Status Date / Time fenofibrate Allergy Intermediate ITCHING, Verified 10/22/24 09:37 HIVES ciprofloxacin Allergy Unknown Unknown Verified 10/22/24 09:37 Penicillins Allergy Unknown Unknown Verified 10/22/24 09:37 Review of Systems Review of Systems: All systems reviewed & are unremarkable except as noted in HPI and below PMFSH Past Medical History Medical History Irritable bowel syndrome with diarrhea Nausea and vomiting Abdominal pain History of colon cancer History of heart attack 1999 Hyperlipidemia Hypertension CHF (congestive heart failure) TIA (transient ischemic attack) CVA (cerebral vascular accident) Coronary artery disease Colon cancer Surgical History Surgical History History of hysterectomy History of cholecystectomy History of appendectomy History of coronary artery stent placement History of colon resection Family History Family History Father Family history of heart disease in male family member before age 55 Cancer, bladder, neck Social History Social History Smoking packs per day: 1 Smoking cigarettes per day: 20.0 Years smoked: 30 Smoking pack-years: 30.00 Smoking status: Former smoker Tobacco type: cigarettes Second hand tobacco smoke exposure: No Smoking end date: 06/27/12 Alcohol intake: never Substance use: never Substance use type: does not use Do You Feel Safe in your Home?: Yes Lack of Transportation: No Lack of Food: Never True Current Housing: I Have Housing Concerned About Future Housing: No Difficulty Paying Gas/Electric Bills: No Difficulty Paying for Meds: No Currently Unemployed: No Education: High School Diploma/GED Difficulty w/ Childcare or Family Care: No Living arrangements: with family Gender identity (if verbalized by the patient): Female Sexual Orientation (if Verbalized by the Patient): Straight or Heterosexual Spiritual care concerns: No Agree to blood products: Yes Exam Narrative: GENERAL: Well appearing, well-nourished, non-toxic, in no acute distress. HEAD: Normocephalic, atraumatic. NECK: Supple. No adenopathy, no masses. RESPIRATORY: Airway patent, respirations nonlabored. Clear to auscultation bilaterally, no rales, rhonchi, wheezing. CARDIOVASCULAR: Regular rate and rhythm without murmurs, rubs, or gallops. Peripheral pulses 2+ and equal bilaterally. ABDOMINAL: Soft, nontender, nondistended, no hepatosplenomegaly. Normoactive BS. MUSCULOSKELETAL: Moves all extremities. Strength/ROM intact without gross deformities. SKIN: Warm, dry, normal color. No rashes. R anterior charles bruise, minor skin abrasion on outer R charles with no bleeding NEURO: A&O X3. Speech clear. Cranial nerves II-XII intact. No ataxic movements. PSYCHIATRIC: Appropriate mood and affect. Normal interaction. Course Vital Signs Vital signs: Vital Signs Temperature 36.6 C 10/31/24 21:37 Pulse Rate 84 10/31/24 21:37 Respiratory Rate 20 10/31/24 21:37 Blood Pressure 152/77 H 10/31/24 21:37 Pulse Oximetry 96 10/31/24 21:37 Temperature 36.6 C 10/31/24 21:37 Pulse Rate 84 10/31/24 21:37 Respiratory Rate 20 10/31/24 21:37 Blood Pressure 152/77 H 10/31/24 21:37 Pulse Oximetry 96 10/31/24 21:37 MDM - Extremity Injury (Lower) MDM Narrative Medical decision making narrative: Patient is a 74-year-old female who presents to the ER following a right leg injury. She reports she tripped over her rowing machine and landed on it. Patient endorses pain to her right anterior knee and right anterior charles. She endorses a history of low blood pressure and cardiac stents. Patient reports she is also on blood thinners. She denies any uncontrolled bleeding, decreased range of motion, ankle pain, numbness/tingling in her extremities. Imaging Ordered:Right tibia/ fibula x-ray, right knee x-ray Medications Ordered: Tylenol 1 g PO Results: Pt's x-rays indicate Degenerative disease, without acute fracture. Diagnosis: Right lower extremity hematoma, R knee hematoma Patient Education/Shared MDM: Results of imaging shared with patient. She endorses improvement of symptoms following medication administration. He bandage will be placed on patient's right knee for support. Patient strongly advised to follow-up with their PCP as soon as possible. She will be discharged home with no new prescriptions. Strict return precautions provided. Patient verbalized understanding and is in agreement with plan. Vital signs stable at time of discharge. All questions answered. Differential Diagnosis Differential diagnosis: Likely acute internal derangement of knee and other ( Tib-fib fracture, right knee dislocation, right leg hematoma) Imaging Data Attestation: I personally reviewed and interpreted this imaging study as follows: Radiologist's impression: Impressions Tibia/Fibula X-Ray 10/31/24 22:12 IMPRESSION: Degenerative disease, without acute fracture Knee X-Ray 10/31/24 22:14 IMPRESSION: Degenerative disease, without acute fracture. Discharge Plan Discharge Clinical Impression: Hematoma of right lower leg, Hematoma of right knee region Patient Disposition: Home Condition: Stable Instructions: Antibiotic Form, Contusion in Adults (ED) Additional Instructions: Please return to the ER with any worsening symptoms. Follow-up with primary care provider as soon as possible. Take all regularly scheduled medications. You may use Tylenol for pain control. Patient Language: Guamanian Prescriptions: No Action atorvastatin 20 mg tablet 20 mg PO DAILY allopurinol 300 mg tablet 300 mg PO DAILY melatonin 10 mg capsule 10 mg PO QHS cyclobenzaprine 10 mg tablet 10 mg PO TID potassium citrate 99 mg capsule 99 mg PO DAILY Tart Ruffin Extract 1,000 mg capsule 1,000 mg PO DAILY Ultra CoQ10 75 mg capsule 75 mg PO DAILY aspirin 81 mg tablet,delayed release (DR/EC) 81 mg PO DAILY clopidogrel 75 mg tablet 75 mg PO DAILY ferrous sulfate 325 mg (65 mg iron) Tablet,Delayed Release (Dr/Ec) 325 mg PO BID Qty: 60 0RF omeprazole 40 mg capsule,delayed release(DR/EC) 40 mg PO DAILY furosemide [Lasix] 20 mg tablet 20 mg PO DAILY Follow-up/Referrals: Lisandra,Devyn Roberts MD [Primary Care Provider] - Time of Disposition: 23:23
== END 2024-10-31 23:39 | disposition home or self-care (01) ==
PROVIDERS: Emergency Provider Registered Nurse; PCP Family Medicine
DX: S80.01XA Contusion of right knee, initial encounter (principal); S80.11XA Contusion of right lower leg, initial encounter; I25.2 Old myocardial infarction; I10 Essential (primary) hypertension; I50.9 Heart failure, unspecified; I11.0 Hypertensive heart disease with heart failure; I25.10 Atherosclerotic heart disease of native coronary artery without angina pectoris; E78.5 Hyperlipidemia, unspecified; K58.9 Irritable bowel syndrome, unspecified; Z95.5 Presence of coronary angioplasty implant and graft; Z85.038 Personal history of other malignant neoplasm of large intestine; Z86.73 Personal history of transient ischemic attack (TIA), and cerebral infarction without residual deficits; Z87.891 Personal history of nicotine dependence; Z90.710 Acquired absence of both cervix and uterus; Z90.49 Acquired absence of other specified parts of digestive tract; M17.11 Unilateral primary osteoarthritis, right knee; W18.09XA Striking against other object with subsequent fall, initial encounter
CPT/HCPCS: 73562; 73590; 99283; 99284

== ENCOUNTER 2024-11-15 09:42 | Outpatient (CLI) | payer MEDICARE, OTHER, SELFPAY ==
--- OUTSIDE RECORDS SUMMARY | 2024-11-15 09:47 | XMS_ITS | Encounter Summary ---
Author Organization [facility] Address [address] [place] [address] Care Team Providers Care Under Cutting Machine Operator Name Role Phone Devyn Fry MD Primary Care Provider [phone] Encounter Details Date Type Department Care Team (Late st Contact Info) Description 11/13/2024 External Device Data [facility] ABSTRACTION Provider, Abstract NO ADDRESS ON FILE Social History Tobacco Use Types Packs/Day Years Used Date Smoking Tobacco: Former Cigarettes 2012 Smokeless Tobacco: Never Alcohol Use Standard Drinks/Week Comments Never 0 (1 standard drink = 0.6 oz pur e alcohol) Comments No Sex and Gender Information Value Date Recorded Sex Assigned at Not on file Legal Sex Female 10:02 AM CDT Gender Identity Not on file Sexual Orientation Not on file documented as of this encounter Plan of Treatment Upcoming Encounters Date Type Department Care Team (Late st Contact Info) Description 11/23/2024 12:15 PM CDT Office Visit [facility] Oncology and Hematology - [place] [address] [facility] [address] [place] [address] Alvin Cueto MD [address] [facility] [address] [place] [address] documented as of this encounter Visit Diagnoses Not on filedocumented in this encounter Care Teams Under Cutting Machine Operator Relationship Specialty Start Date End Date Devyn Fry MD [address] [place] [phone] PCP - General Family Practice 08/22/24 documented as of this encounter
--- OUTSIDE RECORDS SUMMARY | 2024-11-15 09:47 | XMS_ITS | Referral Summary ---
Author Organization [facility] [address] [place] [address] [address] [place] [address] Care Team Providers Care Operations Supervisor Name Role Phone Devyn Fry MD Primary Care Provider [phone] Encounters Date Type Department Care Team Description 09/06/2024 Results Follow-Up [facility] Cardiology [address] [place] [address] [address] [place] [address] Halie Cai NP [facility] Mobile Cardiac Telemetry Event Monitor 08/20/2024 Telephone [facility] Cardiology [address] [facility] [address] [place] [address] Halie Cai NP from Last 3 Months Allergies Active Allergy [...] 20 mg tabletIndicatio ns:Coronary artery disease of [place] artery of [place] heart with stable angina pectoris Take 1 [...] artery disease of [place] ative artery of [place] heart with stable angina pectoris 04/11/2024 Pancreatic cyst 12/22/2021 Overview (12/22/2021): Added automatically from request for surgery [id number] Social History Tobacco Use Types Packs/Day Years [...] on file Legal Sex Female 7:57 AM CARE WORKER Gender Identity Not on file Sexual Orientation Not on file Last Filed Vital Signs Vital Sign Reading Time Taken Comments Blood Pressure 121/76 08/07/2024 12:00 PM CARE WORKER Pulse 75 08/07/2024 12:00 PM CARE WORKER Temperature 36.5 C (97.7 F) 06/29/2024 8:00 AM CARE WORKER Respiratory Rate 18 08/07/2024 12:0 0 PM CARE WORKER Oxygen Saturation 96% 08/07/2024 12: 00 PM CARE WORKER Inhaled Oxygen Concentration - - Weight 78.4 kg (172 lb 12.8 oz) 025 12:00 PM CARE WORKER Height 160 cm (5' 3 ) 08/07/2024 12:00 PM CARE WORKER Body Mass Index 30.61 08/07/2024 12:00 PM CARE WORKER Plan of Treatment Not on file Medical Devices Implanted Type Area Staff Certified Nurse Midwife Device Identifier Shelf Expiration Date Model / Serial / Lot Medtronic Card Vasc Surgery 3.[address] Rx Coronary Stent [id number] - [id number] Implanted:Qty: 1 on 06/29/2024 by Austin Richard MD at [facility] Medtronic Card Vasc Surgery 03/01/2027 [id number] / / [id number] [employer] V[employer] System Closure Repair Femoral Artery Suture Mediated Perclose Prostyle [id number] - [id number] Implanted:Qty: 1 on 06/29/2024 by Austin Richard MD at [facility] [employer] 04/26/2026 [id number] / / [id number] Access Closure Inc Mynx Control 6-7fr 2 Mode Balloon Catheter Sealant Lock Syringe [id number] - [id number] Implanted:Qty: 1 on 06/29/2024 by Austin Richard MD at [facility] Right: Vein Access [employer]osure Inc 03/01/2026 [id number] / / [id number] Insurance [facility] MEDICARE MEDICARE [employer] MEDICARE [employer] Advance Directives For more information, please contact: [phone] * Full Code (Latest Code Status on File) Date Activated Date Inactivated Comments 06/29/2024 1:58 PM 06/29/2024 9:12 PM * Full Code Date Activated Date Inactivated Comments 01/15/2022 8:39 AM 01/15/2022 2:41 PM Care Teams Operations Supervisor Relationship Specialty Start Date End Date Devyn Fry MD [facility] [place] [address] PCP - General Family Medicine 04/11/24
--- OUTSIDE RECORDS SUMMARY | 2024-11-15 09:47 | XMS_ITS | Clinical Summary ---
Author Organization [facility] Address [address] [place] [address] Phone Care Team Providers Care Medical Reception Name Role Phone Devyn Fry MD Primary Care Provider [phone] Allergies Active Allergy Reactions Criticality Noted Date [...] Encounters Date Type Department Care Team Description 11/15/2024 External Device Data STL ABSTRACTION Provider, Abstract 11/14/2024 External Device Data STL ABSTRACTION Provider, Abstract 11/13/2024 External Device Data STL ABSTRACTION Provider, Abstract 09/12/2024 External Device Data STL ABSTRACTION Provider, Abstract 09/01/2024 External Device Data STL ABSTRACTION Provider, Abstract 08/31/2024 External Device Data STL ABSTRACTION Provider, Abstract 08/28/2024 External Device Data STL ABSTRACTION Provider, Abstract 08/22/2024 1:15 PM ELECTRICAL DESIGN TECHNOLOGIST Office Visit [facility] Oncology and Hematology - [place] [address] [address] Alvin Cueto MD Chronic anemia (Primary Dx) from Last 3 Months Family History Medical [...] Years Used Date Smoking Tobacco: Former Cigarettes 30 1 2012 Smokeless Tobacco: Never Tobacco [...] Comments Blood Pressure 112/67 08/22/2024 1:06 PM ELECTRICAL DESIGN TECHNOLOGIST Pulse 77 08/22/2024 1:06 PM ELECTRICAL DESIGN TECHNOLOGIST Temperature 35.6 C (96 F) 08/22/2024 1:06 PM ELECTRICAL DESIGN TECHNOLOGIST Respiratory Rate 15 08/22/2024 1:06 PM ELECTRICAL DESIGN TECHNOLOGIST Oxygen Saturation 93% 08/22/2024 1:06 PM ELECTRICAL DESIGN TECHNOLOGIST Inhaled Oxygen Concentration - - Weight 77.7 kg (171 lb 3.2 oz) 08/22/2024 1:06 P M ELECTRICAL DESIGN TECHNOLOGIST Height 160 cm (5' 3 ) 05/25/2022 1:47 PM ELECTRICAL DESIGN TECHNOLOGIST Body Mass Index 30.33 05/25/2022 1:47 PM ELECTRICAL DESIGN TECHNOLOGIST Plan of Treatment Upcoming Encounters Date Type Department Care Team (Late st Contact Info) Description 11/23/2024 12:15 PM CDT Office Visit [facility] Oncology and Hematology - [place] [address] [facility] [address] [place] [address] Alvin Cueto MD [address] [facility] [address] [place] [address] Health Maintenance Due Date Last [...] MEDICARE PART A AND B [employer] [facility] Medicare Part D MEDICARE PART A AND B [employer] [facility] Care Teams Medical Reception Relationship Specialty Start Date End Date Devyn Fry MD [facility] [place] [address] PCP - General Family Practice 08/22/24
--- OUTSIDE RECORDS SUMMARY | 2024-11-15 09:47 | XMS_ITS | Encounter Summary ---
Author Organization [facility] Address [address] [place] [address] Care Team Providers Care Bat Person Name Role Phone Devyn Fry MD Primary Care Provider [phone] Encounter Details Date Type Department Care Team (Late st Contact Info) Description 11/14/2024 External Device Data STL ABSTRACTION Provider, [...] Description 11/23/2024 12:15 PM CDT Office Visit [facility] Oncology and Hematology - Sreekanth [address] [facility] [address] [place] [address] Alvin Cueto MD [address] [facility] [address] [place] [address] documented as of this encounter Visit Diagnoses Not on filedocumented in this encounter Care Teams Bat Person Relationship Specialty Start Date End Date Devyn Fry MD [address] [place] [phone] PCP - General Family Practice 08/22/24 documented as of this encounter
--- OUTSIDE RECORDS SUMMARY | 2024-11-15 09:47 | XMS_ITS | Patient Health Record ---
Author Organization [facility] Address [address] [facility] [address] [place] [address] Care Team Providers Care Full Stack Software Developer Name Role Phone Ramos Vera MD Primary [...] Problem Status W/U Status Risk Notes Problem [id number] History of colon cancer (Z85.038) Active confirmed Plan Of Treatment Pending Test Test Name Order Date EUS 11/26/2021 Insurance Providers Payer Name Payer Address Payer Phone Subscriber Number Group Number Insured Name Patient Relationship to Insured Coverage Start Date Coverage End Date Medicare E2 [address] [address] [place] [address] [id number] Hui Dominguez Self - patient is the insured Physician [place] [address] [place] [phone] [id number] Angelica Hui Self - patient is the [...]
--- OUTSIDE RECORDS SUMMARY | 2024-11-15 09:47 | XMS_ITS | CONTINUITY OF CARE DOCUMENT ---
Author Name sheila sosa Address Unknown Organization [facility] Address [address] [place] [address] [address] [place] [address] Phone [phone] Care Team Providers Care Sheetrock Applicator Name Role Phone Mariusz Padilla MD Unavailable [phone] Mariusz Padilla MD Unavailable PAMELA CHANG MD Unavailable [phone] PROBLEMS Condition Status Date Provider Notes Obesity [...] In-person encounter Office Visit Mariusz Padilla MD [facility] CADhx of TIA;neg carotgid and telePalpitationsEmphysemaChest pain-type to be tiuiheiywnBveddhevzpnV38 deficiencyRenal disease, chronic, mild;neg us and duplexScreeningValvular heart diseasefatty liverThyroid noduleAbnormal chest CT scanHypertriglyceridemia 2 - 2 In-person encounter Office Visit Mariusz Padilla MD [facility] ObesityAnemia, iron deficiencyCADHyperlipidemiaTobacco use, quitMyocardial [...] blood pressure, diastolic 80 mm[Hg] Kr isty [place] blood pressure, systolic 140 mm[Hg] [place] stfaith [...] iron binding capacity, unsaturated 218 ug/dL [facility] 437-584 4457/09/0 4 iron binding capacity, total 295 ug/dL [facility] 173-133 7620/09/0 4 lipoprotein, beta, serum, point, quantitative, calculated 59 mg/dL [facility]ic 0-99 4 very low density lipoproteins 74 mg/dL [facility] 5-40 High 4 HDL cholesterol, serum 34 mg/dL [facility] >39 Low 4 triglyceride, serum, random 370 mg/dL [facility] 0-149 High 4 cholesterol, serum 167 mg/dL [facility] 909-279 3514/07/2 3 pro brain natriuretic peptide 282 pg/mL [...] Estab. 3 platelet count 309 X10E3/UL [facility] 826-766 2831/07/2 3 red blood cell distribution width 20.4 [...] 3.5-5.2 3 sodium, serum 142 mmol/L [facility] 294-315 2268/07/2 3 urea nitrogen/creatinine ratio, serum 20 LinkLogic [...] tablet by mouth once daily [facility] CVS FISH OIL 1000 MG ORAL CAPSULE active take one tablet by mouth once daily [facility] ADULT ASPIRIN REGIMEN 81 MG ORAL TABLET DELAYED RELEASE active take one tablet by mouth once daily [facility] CO Q 10 100 MG ORAL CAPSULE active take one tablet by mouth once daily [facility] SIMVASTATIN 20 MG ORAL TABLET active [...] Policy type / Coverage type [place] [id number] [employer] Other 1 [id number] TREATMENT PLAN Date Name Performer Cardiology:to have [...] Mariusz Padilla MD Date Name DLCO - 08530 FRC - 80433 FVC - 72045 IRON AND TOTAL IRON BINDING CAPACITY FERRITIN [...]
--- OUTSIDE RECORDS SUMMARY | 2024-11-15 09:47 | XMS_ITS | Continuity of Care Document ---
Author Organization [facility] Address [address] [place] [address] [place] [address] Phone Care Team Providers Care Mechanical Engineering Technologist Name Role Phone Frandy Barrera DO Unavailable Unavailable Advance Directives Directive Yes / No Effective Date File Name No Information Encounters Encounter Description Practice Location Reason(s) For Visit Diagnoses Date Provider Providers Copied on Encounter [facility], [address], [place], [place], [address], [place] tel:[phone] [facility] No Information Bruce Tabares. [address] [facility], [place], [address], [place]. tel: [phone] Family History Family Member Type Diagnosis Age At Onset No Information Payers Payer name Insurance type Covered constitution party ID Authoriza tion(s) No Information Social [...]
--- OUTSIDE RECORDS SUMMARY | 2024-11-15 09:47 | XMS_ITS | Patient Health Record ---
Author Organization [facility] Address [address] [place] [address] YENNY Najera [address] Care Team Providers Care Piece Goods Packer Name Role Phone DARRICK BAZAN ASHLEY Unavailable [...] (G57.91) Active confirmed Mononeuropathy of lower limb (407017774) Problem Spondylolisthesis , lumbar region (M43.16) Active confirmed Acquired spondylolisthesis (957534371) Problem Spondylosis without myelopathy or radiculopathy, lumbar region (M47.816) Active confirmed Lumbosacral spondylosis without myelopathy (88243464) Problem Spondylosis without myelopathy or radiculopathy, lumbosacral region (M47.817) Active confirmed Lumbosacral spondylosis without myelopathy (disorder) (71898323) Problem Other intervertebral disc degeneration, lumbar region (M51.36) Active confirmed Degeneration of lumbar intervertebral disc (59509682) Problem Radiculopathy, lumbar region (M54.16) Active confirmed Lumbar radiculopathy (232827328) Problem Radiculopathy, lumbosacral region (M54.17) Active confirmed Lumbosacral radiculopathy (8876658) Problem Sciatica, unspecified side (M54.30) Active confirmed Sciatica (84538721) Problem Sciatica, right side (M54.31) Active confirmed Right side sci atica (502665152189029) Problem Sciatica, left side (M54.32) Active confirmed Left side scia eleonora (529560325562773) Problem Osseous stenosis of neural canal of lumbar region (M99.33) Active confirmed Spinal stenosis of lumbar region (13821661) Problem Osseous and subluxation stenosis of intervertebral foramina of lumbar region (M99.63) Active confirmed Spinal stenosis of lumbar region (50354458) Problem 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 (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) use of anticoagulants (Z79.01) Active confirmed Long-term curre nt use of anticoagulant (470065106) Problem Spinal stenosis, lumbar region with neurogenic 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) Active confirmed Neurogenic claudication (986938403) PLAN OF TREATMENT No Information Insurance Providers Payer Name Payer Address Payer Phone Subscriber Number Group Number Insured Name Patient Relationship to Insured Coverage Start Date Coverage End Date [place] [address] [address] [place] [address] [id number] JAYCE MOTT Self - patient is the insured [employer] [address] [place] [id number] [id number] JAYCE MOTT Self - patient is the insured MEDICAL (GENERAL) HISTORY Medical History History ICD Code Fatty liver Bradycardia Sleep apnea [place] CAD Anemia Hypertension Shingles Gout TIA Colon Cancer - In Remission Surgical History Surgery Date(Month/Year) PTCA x2 2000 Cholecystectomy 2009 Hernia repair 2014
--- OUTSIDE RECORDS SUMMARY | 2024-11-15 09:47 | XMS_ITS | Clinical Summary ---
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 Take 1 [...] artery disease of n ative artery of viejas heart with stable angina pectoris 04/11/2024 Pancreatic cyst 12/22/2021 Overview (12/22/2021): Added automatically from request for surgery [id number] Encounters Date Type Department Care Team Description 09/06/2024 Results Follow-Up [facility] Cardiology [address] [place] [address] Halie aCi NP [facility] Mobile Cardiac Telemetry Event Monitor 08/20/2024 Telephone [facility] Cardiology [address] [place] [address] Hlaie Cai NP from Last 3 Months Surgical History Surgery Date Site/Laterality Comments APPENDECTOMY Appendectomy CHOLECYSTECTOMY Cholecystectomy COLON SURGERY 06/27/2018 - 06/26/2019 HYSTERECTOMY HERNIA REPAIR Medical History Medical History Date Comments Hx Other Medical hx Gout; Commen ts: [facility] 04/19/2014 - Chronic coronary artery disease Coronary artery disease Hypertension Hypertension Gastroesophageal reflux disease GERD Hx Other Medical hysterectomy wi th BSO; Comments: [facility] 04/19/2014 - Hx Other Medical breast biopsy-b enign; Comments: [facility] 04/19/2014 - Awareness under anesthesia Chronic diarrhea [...] on file Legal Sex Female 7:57 AM REGISTERED PHLEBOTOMIST PART TIME Gender Identity Not on file Sexual Orientation Not on file Obstetrics History Last Filed Vital Signs Vital Sign Reading Time Taken Comments Blood Pressure 121/76 08/07/2024 12:00 PM REGISTERED PHLEBOTOMIST PART TIME Pulse 75 08/07/2024 12:00 PM REGISTERED PHLEBOTOMIST PART TIME Temperature 36.5 C (97.7 F) 06/29/2024 8:00 AM REGISTERED PHLEBOTOMIST PART TIME Respiratory Rate 18 08/07/2024 12:0 0 PM REGISTERED PHLEBOTOMIST PART TIME Oxygen Saturation 96% 08/07/2024 12: 00 PM REGISTERED PHLEBOTOMIST PART TIME Inhaled Oxygen Concentration - - Weight 78.4 kg (172 lb 12.8 oz) 025 12:00 PM REGISTERED PHLEBOTOMIST PART TIME Height 160 cm (5' 3 ) 08/07/2024 12:00 PM REGISTERED PHLEBOTOMIST PART TIME Body Mass Index 30.61 08/07/2024 12:00 PM REGISTERED PHLEBOTOMIST PART TIME Plan of Treatment Health Maintenance Due Date Last Done Comments Colon Cancer Screening-Colonoscopy 1950 Hepatitis C Screening 1950 Osteoporosis Screening-Bone Density Scan 1949 DTaP/Tdap/Td Vaccine (1 - Tdap) 1960 Hepatitis B Screening 1967 Zoster Vaccine (1 of 2) 1999 Well Visit 65+ 2014 Pneumococcal vaccine 65+ (2 of 2 - PCV) 04/03/2020 04/03/2019 Covid-19 Vaccine (5 2023-2 5 season) 2024 10/01/2021, 04/25/2021, 09/09/2020, Additional history exists Influenza Vaccine (Season Ended) 2025 04/23/2021, 04/03/2019, 04/14/2018, Additional history exists Fall Risk Assessment 06/29/2025 06/29/2024 Depression Screening 08/07/2025 08/07/2024 Medical Devices Implanted Type Area Small Engine Trainer Device Identifier Shelf Expiration Date Model / Serial / Lot Medtronic Card Vasc Surgery 3.0 X 18mm [place] Rx Coronary Stent [id number] - [id number] Implanted:Qty: 1 on 06/29/2024 by Austin Richard MD at [facility] Medtronic Card Vasc Surgery 03/01/2027 [id number] / / [id number] 2000 Reyes Vascular System Closure Repair Femoral Artery Suture Mediated Perclose Prostyle 49356-30 - [id number] Implanted:Qty: 1 on 06/29/2024 by Austin Richard MD at [facility] Reyes Vascular 04/26/2026 [id number] / / [id number] Access Closure Inc Mynx Control 6-7fr 2 Mode Balloon Catheter Sealant Lock Syringe [id number] - [id number] Implanted:Qty: 1 on 06/29/2024 by Austin Richard MD at [facility] Right: Vein Access Closure Inc 03/01/2026 [id number] / / [id number] Insurance [employer] [place] MEDICARE [employer] [place] Member Subscriber Plan / Payer (Ef fective 2014-Present) Name:Jayce Mott Relation to Subscriber:Self Name:Jayce Mott Payer ID:[id number] Group ID:Not on file Type:COMMERCIAL Address: [facility] [address] [place] MEDICARE [facility] INS [place] Member Subscriber Plan / Payer (Ef fective 2014-Present) Name:Jayce Mott Relation to Subscriber:Self Name:Jayce Mott Payer ID:[id number] Group ID:Not on file Type:COMMERCIAL Address: [facility] [address] [place], [place] Advance Directives For more information, please contact: [phone] * Full Code (Latest Code Status on File) Date Activated Date Inactivated Comments 06/29/2024 1:58 PM 06/29/2024 9:12 PM * Full Code Date Activated Date Inactivated Comments 01/15/2022 8:39 AM 01/15/2022 2:41 PM Care Teams Fitter Welder Relationship Specialty Start Date End Date Devyn Fry MD [facility] [place] [address] PCP - General Family Medicine 04/11/24
--- OUTSIDE RECORDS SUMMARY | 2024-11-15 09:47 | XMS_ITS | Encounter Summary ---
Author Organization [facility] Address [address] [place] [address] Care Team Providers Care Electronics Instructor Name Role Phone Devyn Fry MD Primary Care Provider [phone] Encounter Details Date Type Department Care Team (Late st Contact Info) Description 11/15/2024 External Device Data STL ABSTRACTION [...] Description 11/23/2024 12:15 PM CDT Office Visit [facility] Oncology and Hematology - Sreekanth [address] [facility] [address] [place] [address] Alvin Cueto MD [address] [place] [facility] [address] [place] [address] documented as of this encounter Visit Diagnoses Not on filedocumented in this encounter Care Teams Electronics Instructor Relationship Specialty Start Date End Date Devyn Fry MD [address] [place] [phone] PCP - General Family Practice 08/22/24 documented as of this encounter
--- OUTSIDE RECORDS SUMMARY | 2024-11-15 09:47 | XMS_ITS | Clinical Summary ---
Author Organization [facility] Address [address] [facility] [place] [place] [address] Care Team Providers Care Director Hris Name Role Phone Devyn Fry MD Primary Care Provider [phone] Source Comments [facility],non-owned Affiliates and Associated Physician Practices is amultiple site organization consisting of ambulatory clinics and hospital sitesin [place], [place], [place] and [place]. This disclosure is being madepursuant to the Care Everywhere program and may not contain all information available regarding this patient. Last updated 18.[facility] Allergies Active Allergy Reactions Criticality Noted Date [...] on file Legal Sex Female 6:22 AM PLASTICS FABRICATION SUPERVISOR Gender Identity Not on file Sexual Orientation Not on file Last Filed Vital Signs Vital Sign Reading Time Taken Comments Blood Pressure 100/60 08/29/2023 11:38 AM PLASTICS FABRICATION SUPERVISOR Pulse 64 08/29/2023 11:38 AM PLASTICS FABRICATION SUPERVISOR Temperature 36.7 C (98 F) 05/01/2020 6:46 PM PLASTICS FABRICATION SUPERVISOR Respiratory Rate 14 08/29/2023 11:38 AM PLASTICS FABRICATION SUPERVISOR Oxygen Saturation 95% 08/29/2023 11:38 AM PLASTICS FABRICATION SUPERVISOR Inhaled Oxygen Concentration - - Weight 74.4 kg (164 lb) 08/29/2023 11:38 AM PLASTICS FABRICATION SUPERVISOR Height 160 cm (5' 3 ) 08/29/2023 11:38 AM PLASTICS FABRICATION SUPERVISOR Body Mass Index 29.05 08/29/2023 11:38 AM PLASTICS FABRICATION SUPERVISOR Plan of Treatment Health Maintenance Due [...] age to complete this topic Insurance [address] [place] [id number] MEDICARE [employer] [place] Member Subscriber Plan / Payer (Ef fective 2019-Present) Name:Jayce Mott Relation to Subscriber:Self Name:JAYCE MOTT Payer ID:Not on file Group ID:PLAN N Type:Commercial Address: [facility] [address] MEDICARE [employer] Member Subscriber Plan / Payer (Ef fective 2014-Present) Name:Jayce Mott Relation to Subscriber:Self Name:SabamelanieJayce [place] Payer ID:Not on file Group ID:PLAN N Type:Commercial Address: [facility] [address] [place] MEDICARE Care Teams Director Hris Relationship Specialty Start Date End Date Devyn Fry MD [address] [place] [address] PCP - General Family Medicine 06/14/23
[2024-11-15 10:08] LABS: Hematocrit 42.2 % (37.0-47.0); Hemoglobin 12.7 g/dL (12.0-15.0); Mean Corpuscular HGB Conc 30.1 g/dl (32-36); Mean Corpuscular Hemoglobin 29.8 pg (26-34); Mean Corpuscular Volume 99.1 fl (80-100); Mean Platelet Volume 10.1 fl (7.4-10.4); Platelet Count Result 187 k/mm3 (150-375); Red Blood Count 4.26 M/mm3 (4.2-5.4); Red Cell Distribution Width 16.3 % (11.5-14.5); White Blood Count 5.6 K/mm3 (4.5-10.0)
[2024-11-15 10:19] LABS: Anion Gap 8 mmol/L (4-12); Blood Urea Nitrogen 38 mg/dL (7-17); Calcium 10.2 mg/dL (8.4-10.2); Carbon Dioxide 24 mmol/L (22-30); Chloride 111 mmol/L (98-107); Estimated Glomerular Filt Rate 31; Glucose 81 mg/dL (65-110); Iron 90 ug/dL (37-170); Potassium 3.8 mmol/L (3.4-5.0); Sodium 143 mmol/L (137-145)
[2024-11-15 10:29] LABS: Percent Iron Saturation 29 % (20-50)
[2024-11-15 11:34] LABS: Folic Acid > 20.0 ng/mL (2.76->20); Vitamin B12 > 1000.0 pg/mL (239-931)
== END 2024-11-15 09:43 | disposition home or self-care (01) ==
PROVIDERS: PCP Family Medicine; Visit Provider Internal Medicine Hematology & Oncology
DX: D64.9 Anemia, unspecified (principal)
CPT/HCPCS: 36415; 80048; 82607; 82728; 82746; 83540; 83550; 85027

== ENCOUNTER 2024-11-18 14:06 | Inpatient (IN) | payer MEDICARE, OTHER, SELFPAY ==
[2024-11-18] VITALS (7 sets, daily range): BP systolic 127–175; BP diastolic 70–88; PULSE 68–89; RESP 16–20; TEMP 36.4–36.6; O2SAT 97–100; BMI 33.2; BMI 33.3
--- NOTE | ~2024-11-18 | CT_ITS ---
CT abdomen pelvis w con Ordering provider: Emelia Roberts APRN History: 74 years Female with . hematuria, concern for kidney stone . Comparison: April 13, 2022 Technique: CT abdomen and pelvis with IV and without oral contrast. Automated exposure control and it erative reconstruction technique were employed. The dose-length product was 1135.18 mGy-cm. Findings: VISUALIZED LOWER CHEST: Dependent atelectatic changes. UPPER ABDOMINAL ORGANS: Liver: Normal. Gallbladder: Status post cholecystectomy. Spleen: Normal. Stomach/duodenum: Small sliding hiatus hernia. Pancreas: Normal. Adrenals: Normal. Kidneys: Multiple cysts in the left kidney with the largest measures 3 x 4.1 cm. Multiple right kidne y cysts with the largest measures 2.3 cm. PELVIC ORGANS: The bladder shows emphysematous cystitis. Anaerobic or gas-forming bacterial infection should be considered. Air is also seen anterior to the urinary bladder BOWEL AND MESENTERY: Colon: No evidence of diverticulitis. Postoperative changes in the right side of the colon.. Appendix is not demonstrated. Small Bowel: Normal. No obstruction. Peritoneum/mesentery: No free air or free fluid. No mesenteric lymphadenopathy. RETROPERITONEUM: Mild atheromatous disease of the abdominal aorta. No retroperitoneal lymphadenopat hy. MUSCULOSKELETAL: Superficial soft tissues: Anterior abdominal wall hernia containing bowel loops. Otherwise, The super ficial soft tissues are normal. Bones: Age appropriate degenerative changes of the spine. Bilateral sacroiliitis. Pubic symphysitis. IMPRESSION: 1. Air seen in the wall of the urinary bladder suggestive of emphysematous cystitis. Clinical correl ation and follow-up advised. Minimal air is seen anterior to the urinary bladder which may indicate i nfection or less likely perforation in the area bladder. Clinical correlation and follow-up advised. 2. Bilateral renal cysts. 3. Abdominal wall hernia with bowel content. Nurse Emelia Roberts was notified with the result of the patient at 5:00 PM on November 18, 2024. Reviewed, dictated and finalized at location A. IMPRESSION: 1. Air seen in the wall of the urinary bladder suggestive of emphysematous cys titis. Clinical correlation and follow-up advised. Minimal air is seen anterior to the urinary bladder which may indicate infection or less likely perforation in the area bladder. Clinical correlation and follow-up advised. 2. Bilateral renal cysts. 3. Abdominal wall hernia with bowel content. Nurse Emelia Roberts was notified with the result of the patient at 5:00 PM on November 18, 2024.
--- NOTE | ~2024-11-18 | CT_ITS ---
EXAMINATION: CT abdomen pelvis w con DATE: 11/22/2024 11:22 INDICATION: Emphysematous cystitis. TECHNIQUE: Computed tomography (CT) of the abdomen and pelvis was performed with 100 mL Omnipaque-350 intravenous contrast. Automated exposure control and iterative reconstruction technique were employe d. The dose-length product was 781.88 mGy-cm. COMPARISON: 11/18/2024 FINDINGS: Mild bibasilar atelectasis. Heart size is normal. No pericardial or pleural effusion. Very small slid ing-type hiatal hernia. Cholecystectomy clips the gallbladder fossa. Liver, spleen, pancreas and bila teral adrenal glands are normal. There are multiple bilateral renal cysts the largest on the left ervin suring 4.0 cm. Status post right hemicolectomy with ileocolic anastomosis in the right lower quadrant . The portion of the transverse colon and a loop of small bowel extending to a a large central ventra l hernia with orifice measuring 9.0 x 7.8 cm. No bowel obstruction. There are air-fluid levels throug hout the colon consistent with nonspecific diarrhea. Small focus of gas and a Mcpherson catheter within t he decompressed bladder. The previously seen bladder intramural gas has resolved. The uterus is not i dentified and has likely been surgically resected. No abscess or free intraperitoneal gas or fluid. N o pathologically enlarged abdominal or pelvic lymphadenopathy. Mild lumbar and moderate lower thoraci c spondylosis. 4 mm anterolisthesis L4 on L5. IMPRESSION: 1. Small amount of intraluminal gas and a Mcpherson catheter within the decompressed bladder with interva l resolution of bladder wall gas suggesting improving emphysematous cystitis. 2. Large ventral hernia containing nonobstructed large and small bowel. 3. Nonspecific diarrhea. Reviewed, dictated and finalized at location A. IMPRESSION: 1. Small amount of intraluminal gas and a Mcpherson catheter within the decompresse d bladder with interval resolution of bladder wall gas suggesting improving emp hysematous cystitis. 2. Large ventral hernia containing nonobstructed large and small bowel. 3. Nonspecific diarrhea.
--- OUTSIDE RECORDS SUMMARY | 2024-11-18 14:08 | XMS_ITS | Clinical Summary ---
Author Organization [facility] Address [address] [facility] [place] [address] Care Team Providers Care Director Of Partner Marketing Name Role Phone Devyn Fry MD Primary Care Provider [phone] Source Comments [facility],non-owned Affiliates and Associated Physician Practices is amultiple site organization consisting of ambulatory clinics and hospital sitesin [place], [place], [place] and [place]. This disclosure is being madepursuant to the Care Everywhere program and may not contain all information available regarding this patient. Last updated 18.[facility] Allergies Active Allergy Reactions Criticality Noted Date [...] on file Legal Sex Female 6:22 AM TOOL LIAISON Gender Identity Not on file Sexual Orientation Not on file Last Filed Vital Signs Vital Sign Reading Time Taken Comments Blood Pressure 100/60 08/29/2023 11:38 AM TOOL LIAISON Pulse 64 08/29/2023 11:38 AM TOOL LIAISON Temperature 36.7 C (98 F) 05/01/2020 6:46 PM TOOL LIAISON Respiratory Rate 14 08/29/2023 11:38 AM TOOL LIAISON Oxygen Saturation 95% 08/29/2023 11:38 AM TOOL LIAISON Inhaled Oxygen Concentration - - Weight 74.4 kg (164 lb) 08/29/2023 11:38 AM TOOL LIAISON Height 160 cm (5' 3) 08/29/2023 11:38 AM TOOL LIAISON Body Mass Index 29.05 08/29/2023 11:38 AM TOOL LIAISON Plan of Treatment Health Maintenance Due Date [...] age to complete this topic Insurance [address] [place] [id number] MEDICARE [employer] [place] Member Subscriber Plan / Payer (Ef fective 2019-Present) Name:Jayce Mott Relation to Subscriber:Self Name:JAYCE MOTT Payer ID:Not on file Group ID:PLAN N Type:Commercial Address: [facility] [address] MEDICARE [employer] Member Subscriber Plan / Payer (Ef fective 2014-Present) Name:Jayce Mott Relation to Subscriber:Self Name:SabamelanieJayce [place] Payer ID:Not on file Group ID:PLAN N Type:Commercial Address: [facility] [address] [place] MEDICARE Care Teams Director Of Partner Marketing Relationship Specialty Start Date End Date Devyn Fry MD [address] [place] [address] PCP - General Family Medicine 06/14/23
--- OUTSIDE RECORDS SUMMARY | 2024-11-18 14:08 | XMS_ITS | Continuity of Care Document ---
Author Organization [facility] Address [address] [place] [address] [place] [address] Phone Care Team Providers Care Apprentice Carpenter Name Role Phone Frandy Barrera DO Unavailable Unavailable Advance Directives Directive Yes / No Effective Date File Name No Information Encounters Encounter Description Practice Location Reason(s) For Visit Diagnoses Date Provider Providers Copied on Encounter [facility], [address], [place], [place], [address], [place] tel:[phone] SEC [facility] No Information Bruce Tabares. [address] [facility], [place], [address], [place]. tel: [phone] Family History Family Member Type Diagnosis Age [...]
--- OUTSIDE RECORDS SUMMARY | 2024-11-18 14:08 | XMS_ITS | Referral Summary ---
Author Organization [facility] [address] [facility] [address] Address [address] [place] [address] Care Team Providers Care Patient Transport Officer Name Role Phone Devyn Fry MD Primary Care Provider [phone] Encounters Date Type Department Care Team Description 09/06/2024 Results Follow-Up [facility] Cardiology [address] [facility] [address] [place] [address] Halie Cai NP [facility] Mobile Cardiac Telemetry Event Monitor from Last 3 Months Allergies Active Allergy [...] 20 mg tabletIndicatio ns:Coronary artery disease of skokomish artery of skokomish heart with stable angina pectoris Take 1 [...] artery disease of n ative artery of skokomish heart with stable angina pectoris 04/11/2024 Pancreatic cyst 12/22/2021 Overview (12/22/2021): Added automatically from request for surgery [id number] Social History Tobacco Use Types Packs/Day Years [...] on file Legal Sex Female 7:57 AM STEEL MELTER Gender Identity Not on file Sexual Orientation Not on file Last Filed Vital Signs Vital Sign Reading Time Taken Comments Blood Pressure 121/76 08/07/2024 12:00 PM STEEL MELTER Pulse 75 08/07/2024 12:00 PM STEEL MELTER Temperature 36.5 C (97.7 F) 06/29/2024 8:00 AM STEEL MELTER Respiratory Rate 18 08/07/2024 12:0 0 PM STEEL MELTER Oxygen Saturation 96% 08/07/2024 12: 00 PM STEEL MELTER Inhaled Oxygen Concentration - - Weight 78.4 kg (172 lb 12.8 oz) 025 12:00 PM STEEL MELTER Height 160 cm (5' 3) 08/07/2024 12:00 PM STEEL MELTER Body Mass Index 30.61 08/07/2024 12:00 PM STEEL MELTER Plan of Treatment Not on file Medical Devices Implanted Type Area Director Of Midwifery/Staff Midwife Device Identifier Shelf Expiration Date Model / Serial / Lot Medtronic Card Vasc Surgery 3.0 X 18mm [place] Rx Coronary Stent [id number] - [id number] Implanted:Qty: 1 on 06/29/2024 by Austin Richard MD at [facility] Medtronic Card Vasc Surgery 03/01/2027 [id number] / / [id number] Reyes Vascular System Closure Repair Femoral Artery Suture Mediated Perclose Prostyle 75067-44 - [id number] Implanted:Qty: 1 on 06/29/2024 by Austin Richard MD at [facility] Re[employer] Vascular 04/26/2026 [id number] / / [id number] Closure Inc Mynx Control 6-7fr 2 Mode Balloon Catheter Sealant Lock Syringe [id number] - [id number] Implanted:Qty: 1 on 06/29/2024 by Austin Richard MD at [facility] Right: Vein Access Closure Inc 03/01/2026 [id number] / / [id number] Insurance [facility] MEDICARE MEDICARE [employer] [place] Member Subscriber Plan / Payer (Ef fective 2014-Present) Name:Jayce Mott [place] Relation to Subscriber:Self Name:Jayce Mott Payer ID:[id number] Group ID:Not on file Type:COMMERCIAL Address: [facility] [address] [place], [place] MEDICARE [facility] Address: [address] [address] [employer] [place] Member Subscriber Plan / Payer (Ef fective 2014-Present) Name:Jayce Mott [place] Relation to Subscriber:Self Name:Jayce Mott [place] Payer ID:[id number] Group ID:Not on file Type:COMMERCIAL Address: [facility] [address] [place], [place] Advance Directives For more information, please contact: [phone] * Full Code (Latest Code Status on File) Date Activated Date Inactivated Comments 06/29/2024 1:58 PM 06/29/2024 9:12 PM * Full Code Date Activated Date Inactivated Comments 01/15/2022 8:39 AM 01/15/2022 2:41 PM Care Teams Patient Transport Officer Relationship Specialty Start Date End Date Devyn Fry MD [address] [place], [place] [address] PCP - General Family Medicine 04/11/24
--- OUTSIDE RECORDS SUMMARY | 2024-11-18 14:08 | XMS_ITS | CONTINUITY OF CARE DOCUMENT ---
Author Name sheila sosa Address Unknown Organization [facility] Address [address] [place] [address] [address] [place] [address] Phone [phone] Care Team Providers Care Weights And Measures Sealer Name Role Phone Mariusz Padilla MD Unavailable [phone] Mariusz Padilla MD Unavailable PAMELA CHANG MD Unavailable [phone] PROBLEMS Condition Status Date Provider Notes Obesity [...] - 3 In-person encounter Office Visit Mariusz aPdilla MD [facility] CADhx of TIA;neg carotgid and telePalpitationsEmphysemaChest pain-type to be nvqwmbzjplPjbqzgqjvmpU26 deficiencyRenal disease, chronic, mild;neg us and duplexScreeningValvular heart diseasefatty liverThyroid noduleAbnormal chest CT scanHypertriglyceridemia 2 - 2 In-person encounter Office Visit Mariusz Padilla MD [facility] ObesityAnemia, iron deficiencyCADHyperlipidemiaTobacco use, quitMyocardial infarction, acute, [...] iron binding capacity, unsaturated 218 ug/dL [employer] [phone]/09/0 4 iron binding capacity, total 295 ug/dL [facility] [phone]/09/0 4 lipoprotein, beta, serum, point, quantitative, calculated 59 mg/dL [facility] 0-99 4 very low density lipoproteins 74 mg/dL [facility] 5-40 High 4 HDL cholesterol, serum 34 mg/dL [employer] >39 Low 4 triglyceride, serum, random 370 mg/dL [facility] 0-149 High 4 cholesterol, serum 167 mg/dL [facility] [phone]/07/2 3 pro brain natriuretic peptide 282 pg/mL [...] Estab. 3 platelet count 309 X10E3/UL [facility] [phone]/07/2 3 red blood cell distribution width 20.4 [...] 3.5-5.2 3 sodium, serum 142 mmol/L [facility] 440-797 5373/07/2 3 urea nitrogen/creatinine ratio, serum 20 [employer] [...] one tablet by mouth once daily [facility]S FISH OIL 1000 MG ORAL CAPSULE active take one tablet by mouth once daily [facility] ADULT ASPIRIN REGIMEN 81 MG ORAL TABLET DELAYED RELEASE active take one tablet by mouth once daily [facility] CO Q 10 100 MG ORAL CAPSULE active take one tablet by mouth once daily [facility] SIMVASTATIN 20 MG ORAL TABLET active [...] democrat [place] Medicare [id number] [employer] [place] Other 1 [id number] TREATMENT PLAN Date Name Performer Cardiology:to have [...] 2019 neg Mariusz Padilla MD Cardiology Mariusz aPdilla MD Cardiology Mariusz Padilla MD Cardiology Mariusz [...] Mariusz Padilla MD Date Name DLCO - [id number] FRC - [id number] FVC - [id number] IRON AND TOTAL IRON BINDING CAPACITY FERRITIN [...]
--- OUTSIDE RECORDS SUMMARY | 2024-11-18 14:08 | XMS_ITS | Patient Health Record ---
Author Organization [facility] Address [address] [facility] [address] [place] [address] Care Team Providers Care Water Vessel Captain Name Role Phone Ramos Vera MD Primary [...] Problem Status W/U Status Risk Notes Problem [id number] History of colon cancer (Z85.038) Active confirmed Plan Of Treatment Pending Test Test Name Order Date EUS 11/26/2021 Insurance Providers Payer Name Payer Address Payer Phone Subscriber Number Group Number Insured Name Patient Relationship to Insured Coverage Start Date Coverage End Date Medicare E2 [address] [address] [place] [address] [id number] Hui Dominguez Self - patient is the insured Physician [place] [address] [place] [phone] [id number] Angelica Hui Self - patient is the [...]
--- OUTSIDE RECORDS SUMMARY | 2024-11-18 14:08 | XMS_ITS | Clinical Summary ---
Author Organization [facility] Address [address] [place] [address] Phone Care Team Providers Care Clerk Specialist Name Role Phone Devyn Fry MD Primary Care Provider [phone] Allergies Active Allergy Reactions Criticality Noted Date [...] STL ABSTRACTION Provider, Abstract 08/22/2024 1:15 PM SENIOR ACCOUNTING MANAGER Office Visit [facility] Oncology and Hematology - [place] Prestonadriel Wright [address] [address] Alvin Cueto MD Chronic anemia [...] Comments Blood Pressure 112/67 08/22/2024 1:06 PM SENIOR ACCOUNTING MANAGER Pulse 77 08/22/2024 1:06 PM SENIOR ACCOUNTING MANAGER Temperature 35.6 C (96 F) 08/22/2024 1:06 PM SENIOR ACCOUNTING MANAGER Respiratory Rate 15 08/22/2024 1:06 PM SENIOR ACCOUNTING MANAGER Oxygen Saturation 93% 08/22/2024 1:06 PM SENIOR ACCOUNTING MANAGER Inhaled Oxygen Concentration - - Weight 77.7 kg (171 lb 3.2 oz) 08/22/2024 1:06 P M SENIOR ACCOUNTING MANAGER Height 160 cm (5' 3) 05/25/2022 1:47 PM SENIOR ACCOUNTING MANAGER Body Mass Index 30.33 05/25/2022 1:47 PM SENIOR ACCOUNTING MANAGER Plan of Treatment Upcoming Encounters Date Type Department Care Team (Late st Contact Info) Description 11/23/2024 12:15 PM CDT Office Visit [facility] Oncology and Hematology - [place] [address] [facility] [address] [place] [address] Alvin Cueto MD [address] [facility] [address] [place] [address] Health Maintenance Due Date Last [...] MEDICARE PART A AND B [employer] [facility] Care Teams Clerk Specialist Relationship Specialty Start Date End Date Devyn Fry MD [address] [place] [phone] PCP - General Family Practice 08/22/24
--- OUTSIDE RECORDS SUMMARY | 2024-11-18 14:08 | XMS_ITS | Patient Health Record ---
Author Organization [facility] Address [address] [place] [address] YENNY Najera [address] Care Team Providers Care Electrotyper Name Role Phone DARRICK BAZAN ASHLEY Unavailable [...] (G57.91) Active confirmed Mononeuropathy of lower limb (866112086) Problem Spondylolisthesis , lumbar region (M43.16) Active confirmed Acquired spondylolisthesis (023366320) Problem Spondylosis without myelopathy or radiculopathy, lumbar region (M47.816) Active confirmed Lumbosacral spondylosis without myelopathy (83433846) Problem Spondylosis without myelopathy or radiculopathy, lumbosacral region (M47.817) Active confirmed Lumbosacral spondylosis without myelopathy (disorder) (45240150) Problem Other intervertebral disc degeneration, lumbar region (M51.36) Active confirmed Degeneration of lumbar intervertebral disc (34277790) Problem Radiculopathy, lumbar region (M54.16) Active confirmed Lumbar radiculopathy (753678598) Problem Radiculopathy, lumbosacral region (M54.17) Active confirmed Lumbosacral radiculopathy (7572994) Problem Sciatica, unspecified side (M54.30) Active confirmed Sciatica (57007414) Problem Sciatica, right side (M54.31) Active confirmed Right side sci atica (224278679669182) Problem Sciatica, left side (M54.32) Active confirmed Left side scia eleonora (184947745986476) Problem Osseous stenosis of neural canal of lumbar region (M99.33) Active confirmed Spinal stenosis of lumbar region (79987333) Problem Osseous and subluxation stenosis of intervertebral foramina of lumbar region (M99.63) Active confirmed Spinal stenosis of lumbar region (55869596) Problem terminal manager (current) use of anticoagulants (Z79.01) Active confirmed Long-term curre nt use of anticoagulant (670083259) Problem Spinal stenosis, lumbar region with neurogenic 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) Active confirmed Neurogenic claudication (504610086) PLAN OF TREATMENT No Information Insurance Providers Payer Name Payer Address Payer Phone Subscriber Number Group Number Insured Name Patient Relationship to Insured Coverage Start Date Coverage End Date Medicare [place] [address] [address] [place] [address] [id number] JAYCE MOTT Self - patient is the insured [employer] [address] [place] [phone] [id number] JAYCE MOTT Self - patient is the insured MEDICAL (GENERAL) HISTORY Medical History History ICD Code Fatty liver Bradycardia Sleep apnea RI CAD Anemia Hypertension Shingles Gout TIA Colon Cancer - In Remission Surgical History Surgery Date(Month/Year) PTCA x2 2000 Cholecystectomy 2009 Hernia repair 2014
--- OUTSIDE RECORDS SUMMARY | 2024-11-18 14:09 | XMS_ITS | Clinical Summary ---
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 Mobile Cardiac Telemetry Event Monitor from Last 3 Months Surgical History Surgery Date Site/Laterality Comments APPENDECTOMY Appendectomy CHOLECYSTECTOMY Cholecystectomy COLON SURGERY 06/27/2018 - 06/26/2019 HYSTERECTOMY HERNIA REPAIR Medical History Medical History Date Comments Hx Other Medical hx Gout; Commen ts: [facility] 04/19/2014 - Chronic coronary artery disease Coronary artery disease Hypertension Hypertension Gastroesophageal reflux disease GERD Hx Other Medical hysterectomy wi th BSO; Comments: [facility] 04/19/2014 - Hx Other Medical breast biopsy-b enign; Comments: [facility] 04/19/2014 - Awareness under anesthesia Chronic diarrhea [...] on file Legal Sex Female 7:57 AM [employer] SAL[employer]OCI[employer] Gender Identity Not on file Sexual Orientation Not on file Obstetrics History Last Filed Vital Signs Vital Sign Reading Time Taken Comments Blood Pressure 121/76 08/07/2024 12:00 PM [employer] SALES [employer]ATE Pulse 75 08/07/2024 12:00 PM [employer] SAL[employer]IATE Temperature 36.5 C (97.7 F) 06/29/2024 8:00 AM [employer] SALES [employer]OCIATE Respiratory Rate 18 08/07/2024 12:0 0 PM [employer] SALES [employer]OC[employer]ATE Oxygen Saturation 96% 08/07/2024 12: 00 PM [employer]AR[employer] SALES ASSOCIATE Inhaled Oxygen Concentration - - Weight 78.4 kg (172 lb 12.8 oz) 025 12:00 PM [employer] SALES ASSOCIATE Height 160 cm (5' 3) 08/07/2024 12:00 PM [employer] SALES [employer]OCIATE Body Mass Index 30.61 08/07/2024 12:00 PM [employer] SALES ASSOCIATE Plan of Treatment Health Maintenance Due Date [...] 08/07/2025 08/07/2024 Medical Devices Implanted Type Area Violin Teacher Device Identifier Shelf Expiration Date Model / Serial / Lot Medtronic Card Vasc Surgery 3.0 X 18mm Marcelo Starr Rx Coronary Stent [id number] - [id number] Implanted:Qty: 1 on 06/29/2024 by Austin Richard MD at [facility] Medtronic Card Vasc Surgery 03/01/2027 [id number] / / [id number] [employer] V[employer] System Closure Repair Femoral Artery Suture Mediated Perclose Prostyle [id number] - [id number] Implanted:Qty: 1 on 06/29/2024 by Austin Richard MD at [facility] [employer] 04/26/2026 [id number] / / [id number] Access [employer]osure Inc Mynx Control 6-7fr 2 Mode Balloon Catheter Sealant Lock Syringe [id number] - [id number] Implanted:Qty: 1 on 06/29/2024 by Austin Richard MD at [facility] Right: Vein [employer] 03/01/2026 [id number] / / [id number] Insurance [employer] MEDICARE Formerly [facility] [address] MEDICARE [employer] MEDICARE PHYSICIANS [facility] [place] Advance Directives For more information, please contact: [phone] * Full Code (Latest Code Status on File) Date Activated Date Inactivated Comments 06/29/2024 1:58 PM 06/29/2024 9:12 PM * Full Code Date Activated Date Inactivated Comments 01/15/2022 8:39 AM 01/15/2022 2:41 PM Care Teams Chalk Tester Relationship Specialty Start Date End Date Devyn Fry MD [facility] [place] [address] PCP - General Family Medicine 04/11/24
--- OUTSIDE RECORDS SUMMARY | 2024-11-18 14:20 | XMS_ITS | CONTINUITY OF CARE DOCUMENT ---
Author Name sheila sosa Address Unknown Organization [facility] Address [address] [place] [address] [address] [place] [address] Phone [phone] Care Team Providers Care Janitor Name Role Phone Mariusz Padilla MD Unavailable Mariusz Padilla MD Unavailable PAMELA CHANG MD Unavailable [phone] PROBLEMS Condition Status Date Provider Notes Obesity [...] In-person encounter Office Visit Mariusz Padilla MD [facility] CADhx of TIA;neg carotgid and telePalpitationsEmphysemaChest pain-type to be hxwpgacnneGilmmfykabnN40 deficiencyRenal disease, chronic, mild;neg us and duplexScreeningValvular heart diseasefatty liverThyroid noduleAbnormal chest CT scanHypertriglyceridemia 2 - 2 In-person encounter Office Visit Mariusz Padilla MD [facility] ObesityAnemia, iron deficiencyCADHyperlipidemiaTobacco use, quitMyocardial infarction, acute, [...] iron binding capacity, unsaturated 218 ug/dL [employer] [phone]/09/0 4 iron binding capacity, total 295 ug/dL [employer] [phone]/09/0 4 lipoprotein, beta, serum, point, quantitative, calculated 59 mg/dL [employer] 0-99 4 very low density lipoproteins 74 mg/dL [employer] 5-40 High 4 HDL cholesterol, serum 34 mg/dL [employer] >39 Low 4 triglyceride, serum, random 370 mg/dL [employer] 0-149 High 4 cholesterol, serum 167 mg/dL [employer] [phone]/07/2 3 pro brain natriuretic peptide 282 pg/mL [...] Estab. 3 platelet count 309 X10E3/UL [employer] [phone]/07/2 3 red blood cell distribution width 20.4 [...] 3.5-5.2 3 sodium, serum 142 mmol/L [employer] 249-086 8484/07/2 3 urea nitrogen/creatinine ratio, serum 20 [employer] [...] take one tablet by mouth once daily [facility]S FISH OIL 1000 MG ORAL CAPSULE active take one tablet by mouth once daily [facility] ADULT ASPIRIN REGIMEN 81 MG ORAL TABLET DELAYED RELEASE active take one tablet by mouth once daily [facility] CO Q 10 100 MG ORAL CAPSULE active take one tablet by mouth once daily [facility] SIMVASTATIN 20 MG ORAL TABLET [...] Severino #30, 30 days supply, Prescribed by PAMLEA CHANG, Filled 11/27/2018 COLCHICINE 0.6 MG ORAL [...] Policy type / Coverage type Kenny red constitution party [place] MEDIC[place] PART B Medicare [id number] [employer] Other 1 [id number] TREATMENT PLAN Date Name Performer Cardiology:to have [...] Mariusz Padilla MD Date Name DLCO - [id number] FRC - 01286 FVC - 76004 IRON AND TOTAL IRON BINDING CAPACITY FERRITIN [...]
--- OUTSIDE RECORDS SUMMARY | 2024-11-18 14:20 | XMS_ITS | Continuity of Care Document ---
Author Organization [facility] Address [address] [place] [address] [place] [address] Phone Care Team Providers Care Senior Oracle Pl Sql Developer Name Role Phone Frandy Barrera DO Unavailable Unavailable Advance Directives Directive Yes / No Effective Date File Name No Information Encounters Encounter Description Practice Location Reason(s) For Visit Diagnoses Date Provider Providers Copied on Encounter [facility], [address], [place], [place], [id number], [place] tel:[phone] [facility] No Information Bruce Tabares. [address] [facility], [place], [address], [place]. tel: [phone] Family History Family Member Type Diagnosis Age [...]
[2024-11-18 14:31] LABS: Basophils Absolute Auto 0.1 K/mm3 (0.0-0.1); Eosinophils Absolute Auto 0.1 K/mm3 (0-0.3); Eosinophils Percent Auto 1.9 % (0-4.4); Hematocrit 39.7 % (37.0-47.0); Hemoglobin 12.4 g/dL (12.0-15.0); Immature Granulocyte Absolute 0.01 K/mm3 (0.00-0.031); Immature Granulocyte Percent A 0.2 % (0-0.5); Lymphocytes Absolute Auto 1.28 K/mm3 (0.9-3.2); Lymphocytes Percent Auto 21.7 % (18.3-44.2); Mean Corpuscular HGB Conc 31.2 g/dl (32-36); Mean Corpuscular Hemoglobin 30.5 pg (26-34); Mean Corpuscular Volume 97.8 fl (80-100); Mean Platelet Volume 10.2 fl (7.4-10.4); Monocytes Absolute Auto 0.4 K/mm3 (0.1-0.6); Monocytes Percent Auto 7.3 % (2.6-8.5); Neutrophils Percent Auto 67.9 % (45.5-73.1); Platelet Count Result 192 k/mm3 (150-375); Red Blood Count 4.06 M/mm3 (4.2-5.4); Red Cell Distribution Width 15.9 % (11.5-14.5); White Blood Count 5.9 K/mm3 (4.5-10.0)
[2024-11-18 14:34] LABS: Bacteria Urine 4+ /hpf; Non Pathogenic Casts 0-2; RBC Urine >100 /hpf (0-2); Squamous Epithelial Cell Urine None Seen /hpf (Few); WBC Urine 51-100 /hpf (0-3)
[2024-11-18 14:43] LABS: Add Urine Microscopic? YES; Appearance Urine Cloudy (Clear); Bilirubin Urine Negative (Negative); Blood Urine 3+ (Negative); Glucose Urine UA Negative (Negative); Ketones Urine Negative (Negative); Leukocyte Esterase Ur 2+ LEU/UL (Negative); Nitrate Urine Negative (Negative); Protein Urine 2+ mg/dL (Negative); Specific Grav Ur 1.009 (1.001-1.035); Urobilinogen Urine 0.2 mg/dL (<2.0); pH Urine 5.5 (5.0-9.0)
[2024-11-18 14:44] LABS: Alanine Aminotransferase 23 U/L (6-35); Albumin Level 4.2 g/dL (3.5-5.1); Alkaline Phosphatase 116 U/L (38-126); Anion Gap 10 mmol/L (4-12); Aspartate Amino Transferase 37 U/L (14-36); Bilirubin,Total 0.4 mg/dL (0.2-1.3); Blood Urea Nitrogen 41 mg/dL (7-17); Calcium 9.9 mg/dL (8.4-10.2); Carbon Dioxide 22 mmol/L (22-30); Chloride 110 mmol/L (98-107); Estimated CRCL calculation 31 ml/min; Estimated Glomerular Filt Rate 35; Glucose 80 mg/dL (65-110); Potassium 3.6 mmol/L (3.4-5.0); Sodium 142 mmol/L (137-145)
[2024-11-18 14:44] LABS: Color Urine Light Orange (Yellow)
--- NOTE | 2024-11-18 15:06 | ECG_ITS ---
Test Date: 2024-11-18 15:19:38 Measurements Intervals [place] Rate: 66 P: 29 ME: 178 QRS: -21 QRSD: 100 T: 56 QT: 412 QTc: 433 Interpretive Statements SINUS RHYTHM WITH OCCASIONAL VENTRICULAR PREMATURE COMPLEXES LATERAL MYOCARDIAL INFARCTION , PROBABLY OLD [40+ ms Q WAVE AND/OR ST/T ABNORMALITY IN I/aVL/V5/V6] Compared to ECG 08/13/2024 20:02:11 Ventricular premature complex(es) now present Myocardial infarct finding now present Electronically Signed On 11-18-2024 20:50:09 CDT by Austin Richard M.D.
--- NOTE | 2024-11-18 15:12 | ED_ITS ---
HPI - Female Genitourinary General Chief complaint: Urogenital-Female <Emelia Roberts APRN - Last Filed: 11/18/24 18:22> Stated complaint: bladder infection <Emelia Roberts APRN - Last Filed: 11/18/24 18:22> Time Seen by Provider: 11/18/24 14:13 <Emelia Roberts APRN - Last Filed: 11/18/24 18:22> History of Present Illness HPI Narrative: Patient is a a 74-year-old female who presents to the ER with urinary symptoms and right flank pain. She reports she 1st noticed blood in her urine yesterday. Today she noticed more blood in her urine along with increased urgency and sharp right sided abdominal pain that radiates to her lower right back. She reports she has a history of kidney infections and has been hospitalized for urosepsis before. Patient endorses a history of frequent urinary tract infections, cardiac stents, anemia, and high blood pressure. < Emelia Roberts APRN - Last Filed: 11/18/24 18:22> Related Data Home medications: Home Medications ?Medication ?Instructions ?Recorded ?Confirmed ?Last Taken ?Type furosemide 20 mg tablet (Lasix) 20 mg PO DAILY 07/13/19 11/18/24 11/18/24 History omeprazole 40 mg capsule,delayed 40 mg PO DAILY 07/13/19 11/18/24 11/18/24 History release allopurinol 300 mg tablet 300 mg PO DAILY 03/20/24 11/18/24 11/18/24 History coenzyme Q10 75 mg capsule (Ultra 75 mg PO DAILY 03/20/24 11/18/24 11/18/24 History CoQ10) cyclobenzaprine 10 mg tablet 10 mg PO HS 03/20/24 11/18/24 11/17/24 History melatonin 10 mg capsule 10 mg PO QHS 03/20/24 11/18/24 11/17/24 History potassium citrate 99 mg capsule 99 mg PO DAILY 03/20/24 11/18/24 11/18/24 History sour ruffin extract 1,000 mg 1,000 mg PO DAILY 03/20/24 11/18/24 11/18/24 History capsule (Tart Ruffin Extract) atorvastatin 20 mg tablet 20 mg PO DAILY 06/18/24 11/18/24 11/18/24 History aspirin 81 mg tablet,delayed 81 mg PO HS 08/13/24 11/18/24 11/17/24 History release clopidogrel 75 mg tablet 75 mg PO DAILY 08/13/24 11/18/24 11/18/24 History metoprolol succinate 25 mg 12.5 mg PO HS 11/18/24 11/18/24 11/17/24 History tablet,extended release 24 hr zolpidem 5 mg tablet 5 mg PO HS 11/18/24 11/18/24 11/17/24 History <Emelia Roberts, ENTERPRISE ARCHITECT - Last Filed: 11/18/24 18:22> Allergies/Adverse reactions: Allergies Allergy/AdvReac Type Severity Reaction Status Date / Time fenofibrate Allergy Intermediate ITCHING, Verified 11/18/24 14:18 HIVES ciprofloxacin Allergy Unknown Unknown Verified 11/18/24 14:18 Penicillins Allergy Unknown Unknown Verified 11/18/24 14:18 <Emelia Robrets ENTERPRISE ARCHITECT - Last Filed: 11/18/24 18:22> Review of Systems 2 Review of Systems: All systems reviewed & are unremarkable except as noted in HPI and below <Emelia Roberts ENTERPRISE ARCHITECT - Last Filed: 11/18/24 18:22> [facility] Past Medical History Medical History: Medical History Gastroesophageal reflux Ventral hernia Cerebrovascular accident Irritable bowel syndrome with diarrhea Hyperlipidemia Hypertension Coronary artery disease Reported [place] in 1999. Colon cancer <Emelia Roberts, ENTERPRISE ARCHITECT - Last Filed: 11/18/24 18:22> Surgical History Surgical History: Surgical History History of incisional hernia repair History of hysterectomy History of cholecystectomy History of appendectomy History of coronary artery stent placement History of colon resection <Emelia Roberts APRN - Last Filed: 11/18/24 18:22> Family History Family History: Family History Father Family history of heart disease in male family member before age 55 Cancer, bladder, neck <Emelia Roberts, ENTERPRISE ARCHITECT - Last Filed: 11/18/24 18:22> Social History Social History: Social History Social History: Surrogate medical decision maker: Allan Dominguez, spouse. Code status: Full code. Smoking packs per day: 1 Smoking cigarettes per day: 20.0 Years smoked: 30 Smoking pack-years: 30.00 Smoking status: Former smoker Second hand tobacco smoke exposure: No Alcohol intake: never Substance use: never Substance use type: does not use Do You Feel Safe in your Home?: Yes Lack of Transportation: No Lack of Food: Never True Current Housing: I Have Housing Concerned About Future Housing: No Difficulty Paying Gas/Electric Bills: No Difficulty Paying for Meds: No Currently Unemployed: No Education: High School Diploma/GED Difficulty w/ Childcare or Family Care: No Living arrangements: with family Spiritual care concerns: No Agree to blood products: Yes <Emelia Roberts, ENTERPRISE ARCHITECT - Last Filed: 11/18/24 18:22> Exam 2 Narrative: GENERAL: Well appearing, well-nourished, non-toxic, in mild distress due to pain. HEAD: Normocephalic, atraumatic. NECK: Supple. No adenopathy, no masses. RESPIRATORY: Airway patent, respirations nonlabored. Clear to auscultation bilaterally, no rales, rhonchi, wheezing. CARDIOVASCULAR: Regular rate and rhythm without murmurs, rubs, or gallops. Peripheral pulses 2+ and equal bilaterally. + CVA tenderness right flank ABDOMINAL: Soft, tender RUQ and RLQ, nondistended, no hepatosplenomegaly. Normoactive BS. MUSCULOSKELETAL: Moves all extremities. Strength/ROM intact without gross deformities. SKIN: Warm, dry, normal color. No rashes. NEURO: A&O X3. Speech clear. Cranial nerves II-XII intact. No ataxic movements. PSYCHIATRIC: Appropriate mood and affect. Normal interaction. <Emelia Roberts, ENTERPRISE ARCHITECT - Last Filed: 11/18/24 18:22> Course PROPULSION MOTOR AND GENERATOR REPAIRER/PA Physician Supervision For this patient encounter, I reviewed the PROPULSION MOTOR AND GENERATOR REPAIRER or PA documentation, treatment plan, and medical decision making; and I had [id number] time with this patient. <Nick Cummins MD - Last Filed: 11/19/24 17:38> Vital Signs Vital signs: Vital Signs Temperature 97.5 F L 11/18/24 14:14 Pulse Rate 70 11/18/24 14:14 Respiratory Rate 16 11/18/24 14:14 Blood Pressure 144/82 H 11/18/24 14:14 Pulse Oximetry 97 11/18/24 14:14 Oxygen Delivery Room Air 11/18/24 14:14 Temperature 97.1 F L 11/19/24 14:00 Pulse Rate 66 11/19/24 14:00 Respiratory Rate 14 11/19/24 14:00 Blood Pressure 118/58 L 11/19/24 14:00 Pulse Oximetry 100 11/19/24 14:00 Oxygen Delivery Room Air 11/19/24 08:01 <Emelia Roberts APRN - Last Filed: 11/18/24 18:22> Vital Signs Temperature 97.5 F L 11/18/24 14:14 Pulse Rate 70 11/18/24 14:14 Respiratory Rate 16 11/18/24 14:14 Blood Pressure 144/82 H 11/18/24 14:14 Pulse Oximetry 97 11/18/24 14:14 Oxygen Delivery Room Air 11/18/24 14:14 Temperature 97.1 F L 11/19/24 14:00 Pulse Rate 66 11/19/24 14:00 Respiratory Rate 14 11/19/24 14:00 Blood Pressure 118/58 L 11/19/24 14:00 Pulse Oximetry 100 11/19/24 14:00 Oxygen Delivery Room Air 11/19/24 08:01 <Nick Cummins MD - Last Filed: 11/19/24 17:38> MDM - Female Genitourinary MDM Narrative Medical decision making narrative: Patient is a a 74-year-old female who presents to the ER with urinary symptoms and right flank pain. She reports she 1st noticed blood in her urine yesterday. Today she noticed more blood in her urine along with increased urgency and sharp right sided abdominal pain that radiates to her lower right back. She reports she has a history of kidney infections and has been hospitalized for urosepsis before. Patient endorses a history of frequent urinary tract infections, cardiac stents, anemia, and high blood pressure. Labs Ordered: CBC, CMP, lactic acid, blood culture, UA, PTT, INR, CRP, troponin Imaging Ordered: CT abdomen pelvis Medications Ordered: 1 L normal saline IV bolus, vancomycin IV, meropenem IV, morphine 2 mg IV Results: Pt's CT scan indicates 1. Air seen in the wall of the urinary bladder suggestive of emphysematous cystitis. Clinical correlation and follow-up advised. Minimal air is seen anterior to the urinary bladder which may indicate infection or less likely perforation in the area bladder. Clinical correlation and follow-up advised. 2. Bilateral renal cysts. 3. Abdominal wall hernia with bowel content. Diagnosis: emphysematous cystitis Consults: Urology (Dr. Victor) who advised pt have a Mcpherson catheter placed. Dr. Victor advised pt be placed on IV antibiotics to cover her for gram negative bacteria. He would like pt to be monitored closely for sepsis. Patient Education/Shared MDM: Results of lab work and imaging shared with patient. She endorses continued pain in her R flank. Will give pt a dose of Morphine 2mg IV. Pt advised to be admitted to the hospital for further evaluation and IV antibiotics. She verbalized understanding and is in agreement with plan. 1700- Spoke with hospitalist, Светлана Rico PA-C, who was in agreement with plan for admission. Pt will be admitted to the med/surg floor. She will be continued on IV antibiotics (Vancomycin and Merepenem). <Emelia Roberts APRN - Last Filed: 11/18/24 18:22> Differential Diagnosis Differential diagnosis: Likely urinary tract infection and other (Pyelonephritis, right flank kidney stone, sepsis) <Emelia Roberts APRN - Last Filed: 11/18/24 18:22> Lab Data Attestation: I reviewed the patient's lab results. <Emelia Roberts APRN - Last Filed: 11/18/24 18:22> Result diagrams: 11/19/24 05:02 11/19/24 05:02 <Emelia Roberts APRN - Last Filed: 11/18/24 18:22> Labs: Lab Results 11/18/24 11/18/24 11/18/24 Range/Units 14:24 14:25 15:43 WBC 5.9 (4.5-10.0) K/mm3 RBC 4.06 L (4.2-5.4) M/mm3 Hgb 12.4 (12.0-15.0) g/dL Hct 39.7 (37.0-47.0) % MCV 97.8 (80-100) fl MCH 30.5 (26-34) pg MCHC 31.2 L (32-36) g/dl RDW 15.9 H (11.5-14.5) % Plt Count 192 (150-375) k/mm3 MPV 10.2 (7.4-10.4) fl Immature Gran % (Auto) 0.2 (0-0.5) % Neut % (Auto) 67.9 (45.5-73.1) % Lymph % (Auto) 21.7 (18.3-44.2) % [place] % (Auto) 7.3 (2.6-8.5) % Eos % (Auto) 1.9 (0-4.4) % Baso % (Auto) 1.0 (0.2-1.2) % Lymph # (Auto) 1.28 (0.9-3.2) K/mm3 [place] # (Auto) 0.4 (0.1-0.6) K/mm3 Eos # (Auto) 0.1 (0-0.3) K/mm3 Baso # (Auto) 0.1 (0.0-0.1) K/mm3 Abs Immat Gran (auto) 0.01 (0.00-0.031) K/mm3 Absolute Neuts (auto) 4.0 (1.3-6.7) K/mm3 Absolute Nucleated RBC 0.000 (0.0-0.012) K/mm3 Nucleated RBC % 0.0 (0.0-0.2) % PT 13.1 (11.1-14.7) Seconds INR 0.9 APTT 25.1 (22.3-36.8) Seconds Sodium 142 (137-145) mmol/L Potassium 3.6 (3.4-5.0) mmol/L Chloride 110 H (98-107) mmol/L Carbon Dioxide 22 (22-30) mmol/L Anion Gap 10 (4-12) mmol/L BUN 41 H (7-17) mg/dL Creatinine 1.46 H (0.7-1.0) mg/dL Estim Creat Clear Calc 31 ml/min Estimated GFR 35 L (59 - ) Glucose 80 (65-110) mg/dL Lactic Acid 1.0 (0.7-2.0) mmol/L Calcium 9.9 (8.4-10.2) mg/dL Magnesium (1.6-2.3) mg/dL Total Bilirubin 0.4 (0.2-1.3) mg/dL AST 37 H (14-36) U/L ALT 23 (6-35) U/L Alkaline Phosphatase 116 (38-126) U/L Troponin I < 0.012 (0.000-0.034) ng/mL C-Reactive Protein 0.9 (<1.0) mg/dL Total Protein 7.0 (6.3-8.2) g/dL Albumin 4.2 (3.5-5.1) g/dL Urine Color Light orange (Yellow) Urine Appearance Cloudy H (Clear) Urine pH 5.5 (5.0-9.0) Ur Specific [place] 1.009 (1.001-1.035) Urine Protein 2+ H (Negative) mg/dL Urine Glucose (UA) Negative (Negative) mg/dL Urine Ketones Negative (Negative) mg/dL Ur Blood (Man) 3+ H (Negative) Urine Nitrate Negative (Negative) Urine Bilirubin Negative (Negative) Urine Urobilinogen 0.2 (<2.0) mg/dL Leukocyte Esterase Rfl 2+ H (Negative) ANDRAE/UL Urine RBC >100 H (0-2) /hpf Urine WBC 51-100 H (0-3) /hpf Ur Squamous Epith Cells None seen (Few) /hpf Urine Bacteria 4+ H /hpf Urine Casts 0-2 05/26/25 Range/Units 05:02 WBC 4.5 (4.5-10.0) K/mm3 RBC 3.51 L (4.2-5.4) M/mm3 Hgb 10.7 L (12.0-15.0) g/dL Hct 34.7 L (37.0-47.0) % MCV 98.9 (80-100) fl MCH 30.5 (26-34) pg MCHC 30.8 L (32-36) g/dl RDW 16.0 H (11.5-14.5) % Plt Count 156 (150-375) k/mm3 MPV 10.4 (7.4-10.4) fl Immature Gran % (Auto) (0-0.5) % Neut % (Auto) (45.5-73.1) % Lymph % (Auto) (18.3-44.2) % [place] % (Auto) (2.6-8.5) % Eos % (Auto) (0-4.4) % Baso % (Auto) (0.2-1.2) % Lymph # (Auto) (0.9-3.2) K/mm3 [place] # (Auto) (0.1-0.6) K/mm3 Eos # (Auto) (0-0.3) K/mm3 Baso # (Auto) (0.0-0.1) K/mm3 Abs Immat Gran (auto) (0.00-0.031) K/mm3 Absolute Neuts (auto) (1.3-6.7) K/mm3 Absolute Nucleated RBC (0.0-0.012) K/mm3 Nucleated RBC % (0.0-0.2) % PT (11.1-14.7) Seconds INR APTT (22.3-36.8) Seconds Sodium 141 (137-145) mmol/L Potassium 3.3 L (3.4-5.0) mmol/L Chloride 114 H (98-107) mmol/L Carbon Dioxide 19 L (22-30) mmol/L Anion Gap 8 (4-12) mmol/L BUN 31 H D (7-17) mg/dL Creatinine 1.02 H (0.7-1.0) mg/dL Estim Creat Clear Calc 44 ml/min Estimated GFR 53 L (59 - ) Glucose 81 (65-110) mg/dL Lactic Acid (0.7-2.0) mmol/L Calcium 9.2 (8.4-10.2) mg/dL Magnesium 1.8 (1.6-2.3) mg/dL Total Bilirubin (0.2-1.3) mg/dL AST (14-36) U/L ALT (6-35) U/L Alkaline Phosphatase (38-126) U/L Troponin I (0.000-0.034) ng/mL C-Reactive Protein (<1.0) mg/dL Total Protein (6.3-8.2) g/dL Albumin (3.5-5.1) g/dL Urine Color (Yellow) Urine Appearance (Clear) Urine pH (5.0-9.0) Ur Specific [place] (1.001-1.035) Urine Protein (Negative) mg/dL Urine Glucose (UA) (Negative) mg/dL Urine Ketones (Negative) mg/dL Ur Blood (Man) (Negative) Urine Nitrate (Negative) Urine Bilirubin (Negative) Urine Urobilinogen (<2.0) mg/dL Leukocyte Esterase Rfl (Negative) ANDRAE/UL Urine RBC (0-2) /hpf Urine WBC (0-3) /hpf Ur Squamous Epith Cells (Few) /hpf Urine Bacteria /hpf Urine Casts <Emelia Roberts, ENTERPRISE ARCHITECT - Last Filed: 11/18/24 18:22> Lab Results 11/18/24 11/18/24 11/18/24 Range/Units 14:24 14:25 15:43 WBC 5.9 (4.5-10.0) K/mm3 RBC 4.06 L (4.2-5.4) M/mm3 Hgb 12.4 (12.0-15.0) g/dL Hct 39.7 (37.0-47.0) % MCV 97.8 (80-100) fl MCH 30.5 (26-34) pg MCHC 31.2 L (32-36) g/dl RDW 15.9 H (11.5-14.5) % Plt Count 192 (150-375) k/mm3 MPV 10.2 (7.4-10.4) fl Immature Gran % (Auto) 0.2 (0-0.5) % Neut % (Auto) 67.9 (45.5-73.1) % Lymph % (Auto) 21.7 (18.3-44.2) % [place] % (Auto) 7.3 (2.6-8.5) % Eos % (Auto) 1.9 (0-4.4) % Baso % (Auto) 1.0 (0.2-1.2) % Lymph # (Auto) 1.28 (0.9-3.2) K/mm3 [place] # (Auto) 0.4 (0.1-0.6) K/mm3 Eos # (Auto) 0.1 (0-0.3) K/mm3 Baso # (Auto) 0.1 (0.0-0.1) K/mm3 Abs Immat Gran (auto) 0.01 (0.00-0.031) K/mm3 Absolute Neuts (auto) 4.0 (1.3-6.7) K/mm3 Absolute Nucleated RBC 0.000 (0.0-0.012) K/mm3 Nucleated RBC % 0.0 (0.0-0.2) % PT 13.1 (11.1-14.7) Seconds INR 0.9 APTT 25.1 (22.3-36.8) Seconds Sodium 142 (137-145) mmol/L Potassium 3.6 (3.4-5.0) mmol/L Chloride 110 H (98-107) mmol/L Carbon Dioxide 22 (22-30) mmol/L Anion Gap 10 (4-12) mmol/L BUN 41 H (7-17) mg/dL Creatinine 1.46 H (0.7-1.0) mg/dL Estim Creat Clear Calc 31 ml/min Estimated GFR 35 L (59 - ) Glucose 80 (65-110) mg/dL Lactic Acid 1.0 (0.7-2.0) mmol/L Calcium 9.9 (8.4-10.2) mg/dL Magnesium (1.6-2.3) mg/dL Total Bilirubin 0.4 (0.2-1.3) mg/dL AST 37 H (14-36) U/L ALT 23 (6-35) U/L Alkaline Phosphatase 116 (38-126) U/L Troponin I < 0.012 (0.000-0.034) ng/mL C-Reactive Protein 0.9 (<1.0) mg/dL Total Protein 7.0 (6.3-8.2) g/dL Albumin 4.2 (3.5-5.1) g/dL Urine Color Light orange (Yellow) Urine Appearance Cloudy H (Clear) Urine pH 5.5 (5.0-9.0) Ur Specific [place] 1.009 (1.001-1.035) Urine Protein 2+ H (Negative) mg/dL Urine Glucose (UA) Negative (Negative) mg/dL Urine Ketones Negative (Negative) mg/dL Ur Blood (Man) 3+ H (Negative) Urine Nitrate Negative (Negative) Urine Bilirubin Negative (Negative) Urine Urobilinogen 0.2 (<2.0) mg/dL Leukocyte Esterase Rfl 2+ H (Negative) ANDRAE/UL Urine RBC >100 H (0-2) /hpf Urine WBC 51-100 H (0-3) /hpf Ur Squamous Epith Cells None seen (Few) /hpf Urine Bacteria 4+ H /hpf Urine Casts 0-2 05/26/25 Range/Units 05:02 WBC 4.5 (4.5-10.0) K/mm3 RBC 3.51 L (4.2-5.4) M/mm3 Hgb 10.7 L (12.0-15.0) g/dL Hct 34.7 L (37.0-47.0) % MCV 98.9 (80-100) fl MCH 30.5 (26-34) pg MCHC 30.8 L (32-36) g/dl RDW 16.0 H (11.5-14.5) % Plt Count 156 (150-375) k/mm3 MPV 10.4 (7.4-10.4) fl Immature Gran % (Auto) (0-0.5) % Neut % (Auto) (45.5-73.1) % Lymph % (Auto) (18.3-44.2) % [place] % (Auto) (2.6-8.5) % Eos % (Auto) (0-4.4) % Baso % (Auto) (0.2-1.2) % Lymph # (Auto) (0.9-3.2) K/mm3 [place] # (Auto) (0.1-0.6) K/mm3 Eos # (Auto) (0-0.3) K/mm3 Baso # (Auto) (0.0-0.1) K/mm3 Abs Immat Gran (auto) (0.00-0.031) K/mm3 Absolute Neuts (auto) (1.3-6.7) K/mm3 Absolute Nucleated RBC (0.0-0.012) K/mm3 Nucleated RBC % (0.0-0.2) % PT (11.1-14.7) Seconds INR APTT (22.3-36.8) Seconds Sodium 141 (137-145) mmol/L Potassium 3.3 L (3.4-5.0) mmol/L Chloride 114 H (98-107) mmol/L Carbon Dioxide 19 L (22-30) mmol/L Anion Gap 8 (4-12) mmol/L BUN 31 H D (7-17) mg/dL Creatinine 1.02 H (0.7-1.0) mg/dL Estim Creat Clear Calc 44 ml/min Estimated GFR 53 L (59 - ) Glucose 81 (65-110) mg/dL Lactic Acid (0.7-2.0) mmol/L Calcium 9.2 (8.4-10.2) mg/dL Magnesium 1.8 (1.6-2.3) mg/dL Total Bilirubin (0.2-1.3) mg/dL AST (14-36) U/L ALT (6-35) U/L Alkaline Phosphatase (38-126) U/L Troponin I (0.000-0.034) ng/mL C-Reactive Protein (<1.0) mg/dL Total Protein (6.3-8.2) g/dL Albumin (3.5-5.1) g/dL Urine Color (Yellow) Urine Appearance (Clear) Urine pH (5.0-9.0) Ur Specific [place] (1.001-1.035) Urine Protein (Negative) mg/dL Urine Glucose (UA) (Negative) mg/dL Urine Ketones (Negative) mg/dL Ur Blood (Man) (Negative) Urine Nitrate (Negative) Urine Bilirubin (Negative) Urine Urobilinogen (<2.0) mg/dL Leukocyte Esterase Rfl (Negative) ANDRAE/UL Urine RBC (0-2) /hpf Urine WBC (0-3) /hpf Ur Squamous Epith Cells (Few) /hpf Urine Bacteria /hpf Urine Casts <Nick Cummins MD - Last Filed: 11/19/24 17:38> Imaging Data Attestation: I personally reviewed and interpreted this imaging study as follows: < Emelia Roberts APRN - Last Filed: 11/18/24 18:22> Radiologist's impression: Impressions Abdomen/Pelvis CT 11/18/24 16:41 IMPRESSION: 1. Air seen in the wall of the urinary bladder suggestive of emphysematous cystitis. Clinical correlation and follow-up advised. Minimal air is seen anterior to the urinary bladder which may indicate infection or less likely perforation in the area bladder. Clinical correlation and follow-up advised. 2. Bilateral renal cysts. 3. Abdominal wall hernia with bowel content. Nurse Emelia Roberts was notified with the result of the patient at 5:00 PM on November 18, 2024. <Emelia Roberts APRN - Last Filed: 11/18/24 18:22> Discharge Plan Discharge Clinical Impression: Emphysematous cystitis, H/O bladder infections, Acute UTI, Acute right flank pain <Emelia Roberts APRN - Last Filed: 11/18/24 18:22> Patient Disposition: Still a Patient <Emelia Roberts APRN - Last Filed: 11/18/24 18:22> Condition: Guarded Prognosis <Emelia Roberts APRN - Last Filed: 11/18/24 18:22>
[2024-11-18 15:57] LABS: CRP 0.9 mg/dL (<1.0)
[2024-11-18 15:59] LABS: INR 0.9; Prothrombin Time 13.1 Seconds (11.1-14.7)
[2024-11-18 16:00] LABS: Partial Thromboplastin Time 25.1 Seconds (22.3-36.8)
[2024-11-18] MEDS: SODIUM CHLORIDE 0.9% IV 1,000 ML 999 ML IV CONT (16:01)
[2024-11-18] MEDS: VANCOMYCIN 1,250 MG/NS 250 ML 1,250 MG/250 ML BAG 166.67 MG IVPB (16:03)
[2024-11-18 16:07] LABS: Troponin I < 0.012 ng/mL (0.000-0.034)
[2024-11-18] MEDS: MEROPENEM 1 GM/NS 100 ML 1 GM/100 ML BAG IVPB (17:49)
--- NOTE | 2024-11-18 19:15 | PM.IMHP ---
H&P: HPI History of Present Illness Date/Time: 11/18/24 19:15 Chief Complaint: Right flank pain, dysuria, hematuria. Narrative: This is a pleasant 74-year-old female when history of complicated urinary tract infections including E coli with some ESBL activity and Enterococcus, urosepsis, hypertension, hyperlipidemia, coronary artery disease, chronic kidney disease, and colon cancer status post resection who presented to the emergency department with complaints of right-sided flank pain, dysuria, hematuria. She felt fine when she got up this morning and went to [employer] with her . After the service she was feeling a bit woozy so they went out to breakfast. Shortly thereafter she developed sharp and shooting pain in the right side of her back in into the flank as well as hematuria and dysuria. Given her history she decided to come and to the hospital immediately for evaluation. She denies fever, chills, sweats, chest pain, shortness of breath, syncope, near syncope, nausea, vomiting, and diarrhea. At the time my evaluation she is resting comfortably. She is frustrated that she has another urine infection as she is diligent about keeping clean to avoid infection. She does mention that she has some episodes of incontinence, occasional bowel incontinence as well since her colectomy). In the ED: She was afebrile on arrival with stable vital signs. Labs are significant for WBC count of 5.9, BUN 41, creatinine 1.46, lactic acid 1.0. Urinalysis was positive for 2+ protein, 3+ blood, 2+ leukocyte esterase, greater than 100 RBC, 51 to 100 WBC, and 4+ bacteria. CT of the abdomen and pelvis showed findings of emphysematous cystitis and bilateral renal cysts. She was given a dose of vancomycin, meropenem, and a L of normal saline and she is being admitted in this setting for further treatment. Review of Systems Review of Systems: 12 systems were reviewed and are negative except for as per HPI. [facility] Past Medical History Medical History (Updated 11/18/24 @ 20:44 by Светлана Rico PA-C) Gastroesophageal reflux Ventral hernia Cerebrovascular accident Irritable bowel syndrome with diarrhea Hyperlipidemia Hypertension Coronary artery disease Reported CT in 1999. Colon cancer Surgical History Surgical History History of hysterectomy History of cholecystectomy History of appendectomy History of coronary artery stent placement History of colon resection Family History Family History Father Family history of heart disease in male family member before age 55 Cancer, bladder, neck Social History Social History (Updated 11/18/24 @ 20:43 by Светлана Rico PA-C) Social History: Surrogate medical decision maker: Allan Dominguez, spouse. Code status: Full code. Smoking packs per day: 1 Smoking cigarettes per day: 20.0 Years smoked: 30 Smoking pack-years: 30.00 Smoking status: Former smoker Second hand tobacco smoke exposure: No Alcohol intake: never Substance use: never Substance use type: does not use Do You Feel Safe in your Home?: Yes Lack of Transportation: No Lack of Food: Never True Current Housing: I Have Housing Concerned About Future Housing: No Difficulty Paying Gas/Electric Bills: No Difficulty Paying for Meds: No Currently Unemployed: No Education: High School Diploma/GED Difficulty w/ Childcare or Family Care: No Living arrangements: with family Spiritual care concerns: No Agree to blood products: Yes Meds Home Medications and Allergies Home Medications ?Medication ?Instructions ?Recorded ?Confirmed ?Type furosemide 20 mg tablet (Lasix) 20 mg PO DAILY 07/13/19 11/18/24 History omeprazole 40 mg capsule,delayed 40 mg PO DAILY 07/13/19 11/18/24 History release allopurinol 300 mg tablet 300 mg PO DAILY 03/20/24 11/18/24 History coenzyme Q10 75 mg capsule (Ultra 75 mg PO DAILY 03/20/24 11/18/24 History CoQ10) cyclobenzaprine 10 mg tablet 10 mg PO HS 03/20/24 11/18/24 History melatonin 10 mg capsule 10 mg PO QHS 03/20/24 11/18/24 History potassium citrate 99 mg capsule 99 mg PO DAILY 03/20/24 11/18/24 History sour ruffin extract 1,000 mg 1,000 mg PO DAILY 03/20/24 11/18/24 History capsule (Tart Ruffin Extract) atorvastatin 20 mg tablet 20 mg PO DAILY 06/18/24 11/18/24 History aspirin 81 mg tablet,delayed 81 mg PO HS 08/13/24 11/18/24 History release clopidogrel 75 mg tablet 75 mg PO DAILY 08/13/24 11/18/24 History metoprolol succinate 25 mg 12.5 mg PO HS 11/18/24 11/18/24 History tablet,extended release 24 hr zolpidem 5 mg tablet 5 mg PO HS 11/18/24 11/18/24 History Allergies Allergy/AdvReac Type Severity Reaction Status Date / Time fenofibrate Allergy Intermediate ITCHING, Verified 11/18/24 14:18 HIVES ciprofloxacin Allergy Unknown Unknown Verified 11/18/24 14:18 Penicillins Allergy Unknown Unknown Verified 11/18/24 14:18 Vital Signs Vital Signs - 24 hr 11/18/24 14:14 11/18/24 15:00 11/18/24 16:00 Temperature 97.5 F L 97.8 F 97.8 F Pulse Rate 70 68 70 Respiratory Rate 16 16 16 Blood Pressure 144/82 H 142/80 H 127/70 Pulse Oximetry 97 100 99 Oxygen Delivery Room Air 11/18/24 17:00 11/18/24 18:00 Temperature 97.9 F 97.8 F Pulse Rate 89 82 Respiratory Rate 16 16 Blood Pressure 160/79 H 151/84 H Pulse Oximetry 98 100 Oxygen Delivery Exam Narrative: General: Well-developed, nontoxic-appearing female sitting up in bed in no distress. Weight: 85.3 kg. BMI: 33.3. HEENT: PERRL, EOMI. Sclera anicteric. Oral mucosa moist. Neck: Supple. Respiratory: Lungs are clear to auscultation bilaterally. Cardiovascular: Regular rate and rhythm with S1-S2. Gastrointestinal: Abdomen is soft with positive bowel sounds. Good size ventral hernia which is reducible. Equivocal right-sided CVA tenderness. Skin: Warm and dry. No rash or lesions on limited exam. Extremities: No cyanosis, clubbing, or edema. Radial and pedal pulses intact. Neurological: Alert. Cranial nerves 2-12 are grossly intact. No gross focal deficits to casual conversation. Psychiatric: Pleasant and cooperative with normal mood and affect. Judgment and insight intact. H&P: Results Labs Labs: Short CBC 11/18/24 Range/Units 14:24 WBC 5.9 (4.5-10.0) K/mm3 Hgb 12.4 (12.0-15.0) g/dL Hct 39.7 (37.0-47.0) % Plt Count 192 (150-375) k/mm3 BMP 11/18/24 14:24 Sodium 142 Potassium 3.6 Chloride 110 H Carbon Dioxide 22 BUN 41 H Creatinine 1.46 H Glucose 80 Calcium 9.9 Cardiac Enzymes 11/18/24 Range/Units 14:24 Troponin I < 0.012 (0.000-0.034) ng/mL Liver Function 11/18/24 Range/Units 14:24 Total Bilirubin 0.4 (0.2-1.3) mg/dL AST 37 H (14-36) U/L ALT 23 (6-35) U/L Alkaline Phosphatase 116 (38-126) U/L Albumin 4.2 (3.5-5.1) g/dL Urine 11/18/24 Range/Units 14:25 Urine Color Light orange (Yellow) Urine Appearance Cloudy H (Clear) Urine pH 5.5 (5.0-9.0) Ur Specific [place] 1.009 (1.001-1.035) Urine Protein 2+ H (Negative) mg/dL Urine Glucose (UA) Negative (Negative) mg/dL Imaging Abdomen/Pelvis CT 11/18/24 16:41 IMPRESSION: 1. Air seen in the wall of the urinary bladder suggestive of emphysematous cystitis. Clinical correlation and follow-up advised. Minimal air is seen anterior to the urinary bladder which may indicate infection or less likely perforation in the area bladder. Clinical correlation and follow-up advised. 2. Bilateral renal cysts. 3. Abdominal wall hernia with bowel content. Assessment and Plan Assessment and plan (1) Emphysematous cystitis: Code(s): N30.80 - Other cystitis without hematuria Status: Acute (2) Hypertension: Code(s): I10 - Essential (primary) hypertension Status: Acute (3) Coronary artery disease: Qualifiers: Coronary Disease-Associated Artery/Lesion type: unspecified vessel or lesion type [place] vs. transplanted heart: [place] heart Associated angina: without angina Qualified Code(s): I25.10 - Atherosclerotic heart disease of [place] coronary artery without angina pectoris Code(s): I25.10 - Atherosclerotic heart disease of [place] coronary artery without angina pectoris Status: Chronic (4) Chronic kidney disease, stage 3b: Code(s): N18.32 - Chronic kidney disease, stage 3b Status: Acute (5) Ventral hernia: Code(s): K43.9 - Ventral hernia without obstruction or gangrene Status: Acute (6) Gastroesophageal reflux: Code(s): K21.9 - Gastro-esophageal reflux disease without esophagitis Status: Acute Plan The patient presented to the emergency department with a 2-day history of right-sided flank pain, dysuria, urgency, and hematuria as detailed in HPI. Urinalysis is grossly abnormal and CT scan shows findings of emphysematous cystitis. Given history of E coli urinary tract infections with ESBL activity, she has been started on meropenem pending blood and urine cultures. Vital signs were reviewed and they are stable. BUN is a bit higher than baseline but creatinine is stable. Chronic conditions without acute issues hyperlipidemia, gastroesophageal reflux disease, and coronary artery disease. Ventral hernia is reducible and not causing immediate issues. Her home medications will be reviewed and resumed as appropriate. Findings and treatment plan were discussed with the patient. Questions were solicited and answered to satisfaction. The patient's medical management will be taken over by the hospitalist team in a.m. Quality VTE Prophylaxis VTE prophylaxis: mechanical ordered If No VTE Prophylaxis Answer both mechanical and pharmacologic: Reason no pharmacologic proph: medical contraindication (patient on dual anti-platelet therapy, pharmacologic prophylaxis would put her at increased risk for bleeding) The patient has been admitted under observation status. Hospitalist [facility] Advance Care Plan I have confirmed that the patient's Advanced Care Plan is present, code status is documented, or surrogate decision maker is listed in patient medical record.: Yes Medication Reconciliation I have utilized all available resources to obtain, update and review the patients current medications (includes all prescriptions, OTC, herbals, cannabis, and nutritional supplements).: Yes
--- NOTE | 2024-11-18 19:25 | ADMGEN ---
This patient, Hui Dominguez, was admitted to 2 Medical Room 257-01. Patient/family oriented to hospital policies and general routines including ID bracelet, bed and alarms, visiting hours, pain management, procedures, bathroom and other care routines, personal items, smoking policy, room service/diet, and visiting hours. Information on how to activate the Rapid Response Team has been discussed. Patient/Family are encouraged to report perceived risks to care and to ask questions if they do not understand what they are told or what they should do.
[2024-11-18] MEDS: SODIUM CHLORIDE 0.9% IV 1,000 ML 125 ML IV CONT (20:15)
[2024-11-18] MEDS: ZOLPIDEM TARTRATE (*CRX) 5 MG TABLET PO (22:05)
[2024-11-18] MEDS: METOPROLOL SUCCINATE EXT REL 12.5 MG TABCR PO (22:05)
[2024-11-18] MEDS: ASPIRIN 81 MG ENTERIC TABLET PO (22:06)
[2024-11-18] MEDS: MELATONIN 5 MG TABLET 10 MG PO (22:06)
[2024-11-19] MEDS: SODIUM CHLORIDE 0.9% IV 1,000 ML 125 ML IV CONT ×3 (04:39→22:42)
[2024-11-19 04:50] VITALS: BP 116/60; PULSE 72; RESP 20; TEMP 36.4; O2SAT 96
[2024-11-19 05:19] LABS: Hematocrit 34.7 % (37.0-47.0); Hemoglobin 10.7 g/dL (12.0-15.0); Mean Corpuscular HGB Conc 30.8 g/dl (32-36); Mean Corpuscular Hemoglobin 30.5 pg (26-34); Mean Corpuscular Volume 98.9 fl (80-100); Mean Platelet Volume 10.4 fl (7.4-10.4); Platelet Count Result 156 k/mm3 (150-375); Red Blood Count 3.51 M/mm3 (4.2-5.4); White Blood Count 4.5 K/mm3 (4.5-10.0)
[2024-11-19 05:31] LABS: Potassium 3.3 mmol/L (3.4-5.0)
[2024-11-19 05:33] LABS: Anion Gap 8 mmol/L (4-12); Blood Urea Nitrogen 31 mg/dL (7-17); Calcium 9.2 mg/dL (8.4-10.2); Carbon Dioxide 19 mmol/L (22-30); Chloride 114 mmol/L (98-107); Estimated CRCL calculation 44 ml/min; Estimated Glomerular Filt Rate 53; Glucose 81 mg/dL (65-110); Sodium 141 mmol/L (137-145)
[2024-11-19] MEDS: MEROPENEM 1 GM/NS 100 ML 1 GM/100 ML BAG IVPB (05:59)
[2024-11-19] MEDS: POTASSIUM CHLORIDE 20 MEQ ER TABLET 40 MEQ PO (08:00)
[2024-11-19] MEDS: PANTOPRAZOLE 40 MG TABLET PO ×2 (08:00→17:10)
[2024-11-19] MEDS: allopurinoL 300 MG TABLET PO (08:01)
[2024-11-19] MEDS: ATORVASTATIN 20 MG TABLET PO (08:01)
[2024-11-19] MEDS: FUROSEMIDE 20 MG TABLET PO (08:02)
[2024-11-19 08:10] LABS: Magnesium 1.8 mg/dL (1.6-2.3)
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
--- NOTE | 2024-11-19 10:29 | P.PNIM_ITS ---
Progress Note: A&P Assessment and Plan (1) Emphysematous cystitis: Code(s): N30.80 - Other cystitis without hematuria Status: Acute Assessment and Plan: * CT abdomen and pelvis with contrast showed: IMPRESSION: 1. Air seen in the wall of the urinary bladder suggestive of emphysematous cystitis. Clinical correlation and follow-up advised. Minimal air is seen anterior to the urinary bladder which may indicate infection or less likely perforation in the area bladder. Clinical correlation and follow-up advised. 2. Bilateral renal cysts. 3. Abdominal wall hernia with bowel content. * Ceftriaxone 2 gram IVPB daily and Metronidazole 500 mg IVPB q 8. * NS@ 125 ml/hr. * Urology consulted, appreciate recommendations. Patient found to have a prior episode of emphysematous cystitis on 12/16/21. * Patient will need a Mcpherson catheter to gravity drainage until final culture results are available. * She may benefit from a repeat CT scan prior to removal of the catheter to ensure the emphysematous changes have resolved. * Pain regimen. * Urine culture pending. Blood cultures pending. (2) Hypertension: Code(s): I10 - Essential (primary) hypertension Status: Acute Assessment and Plan: * Blood pressure 116/60. * Lasix 20 mg PO daily and Metoprolol Succinate 12.5 mg PO HS. (3) Coronary artery disease: Qualifiers: Coronary Disease-Associated Artery/Lesion type: unspecified vessel or lesion type [place] vs. transplanted heart: [place] heart Associated angina: without angina Qualified Code(s): I25.10 - Atherosclerotic heart disease of [place] coronary artery without angina pectoris Code(s): I25.10 - Atherosclerotic heart disease of [place] coronary artery without angina pectoris Status: Chronic Assessment and Plan: * Clopidogrel Bisulfate 75 mg PO daily, ECASA 81 mg PO daily, Metoprolol Succinate 12.5 mg PO HS, and Atorvastatin 20 mg PO daily. (4) Chronic kidney disease, stage 3b: Code(s): N18.32 - Chronic kidney disease, stage 3b Status: Acute Assessment and Plan: * BUN 31, Creatinine 1.02, & GFR 53. * Creatinine has improved from 1.46 to 1.02. * NS @ 125 ml/hr. (5) Ventral hernia: Code(s): K43.9 - Ventral hernia without obstruction or gangrene Status: Acute Assessment and Plan: * CT abdomen and pelvis showed: Abdominal wall hernia with bowel loops and bowel content noted in hernia. * Surgery consulted. Per surgery there is no indication for emergent surgical management at this time. We would recommend to continue treating her acute urinary issues and she can follow-up as an outpatient once her infection has been treated to discuss options for surgical repair. I will order an abdominal binder that she can wear for support in the interim. She should avoid heavy lifting or strenuous activity that may aggravate her symptoms related to the hernia. (6) Gastroesophageal reflux: Code(s): K21.9 - Gastro-esophageal reflux disease without esophagitis Status: Acute Assessment and Plan: * Pantoprazole 40 mg PO BID. (7) Hypokalemia: Code(s): E87.6 - Hypokalemia Status: Acute Assessment and Plan: * Potassium 3.3. * Potassium Chloride 40 meq PO x1. * Monitor level. Subjective Date/time seen: 11/19/24 10:29 Interval history: Patient sitting up in bed with family at bedside. Patient reports pain in her right side that is an 8, frequent, and shooting. Patient reports a headache that is a 3, constant, and aching. Patient denies chest pain, palpitations, shortness of breath, or dizziness. Review of Systems Review of Systems: All systems reviewed & are unremarkable except as noted in HPI and below Exam Const: General: no acute distress and uncomfortable Resp: Effort & Inspection: normal respiratory effort Auscultation: clear to auscultation bilaterally Cardio: Rate: regular rate Rhythm: regular rhythm GI: GI Palp: Yes Soft to palpation Auscultation: normal bowel sounds Neuro: Speech: normal speech Extrem: General: no pedal edema Psych: Mental Status: mental status grossly normal Affect: normal affect Objective Data Vital Signs Vital Signs: Vital Signs - 24 hr 11/18/24 14:14 11/18/24 15:00 11/18/24 16:00 Temperature 97.5 F L 97.8 F 97.8 F Pulse Rate 70 68 70 Respiratory Rate 16 16 16 Blood Pressure 144/82 H 142/80 H 127/70 Pulse Oximetry 97 100 99 Oxygen Delivery Room Air 11/18/24 17:00 11/18/24 18:00 11/18/24 19:37 Temperature 97.9 F 97.8 F 97.6 F Pulse Rate 89 82 86 Respiratory Rate 16 16 20 Blood Pressure 160/79 H 151/84 H 175/88 H Pulse Oximetry 98 100 100 Oxygen Delivery 11/18/24 19:54 11/18/24 22:05 11/19/24 04:50 Temperature 97.6 F Pulse Rate 77 72 Respiratory Rate 20 Blood Pressure 116/60 Pulse Oximetry 96 Oxygen Delivery Room Air 11/19/24 08:01 Temperature Pulse Rate Respiratory Rate Blood Pressure Pulse Oximetry Oxygen Delivery Room Air Intake/Output Intake/Output: Intake & Output 11/16/24 11/17/24 11/18/24 11/19/24 23:59 23:59 23:59 23:59 Intake Total 1350 1340 Output Total 1250 Balance 100 1340 Meds/Results Medications: Active Medications Generic Name Dose Route Start Last Admin Trade Name Freq PRN Reason Stop Dose Admin Acetaminophen 650 mg 11/18/24 19:45 Acetaminophen 325 Mg Tablet PO Q6H PRN Mild Pain (1-3) or Fever Allopurinol 300 mg 11/19/24 09:00 11/19/24 08:01 Allopurinol 300 Mg Tablet PO 300 mg DAILY MURRAY Administration Aspirin 81 mg 11/18/24 21:00 11/18/24 22:06 Aspirin 81 Mg Enteric Tablet PO 81 mg HS MURRAY Administration Atorvastatin Calcium 20 mg 11/19/24 09:00 11/19/24 08:01 Atorvastatin 20 Mg Tablet PO 20 mg DAILY MURRAY Administration Clopidogrel Bisulfate 75 mg 11/19/24 09:00 11/19/24 07:54 Clopidogrel Bisulfate 75 Mg Tablet PO Not Given DAILY MURRAY Cyclobenzaprine HCl 10 mg 11/18/24 20:45 Cyclobenzaprine Hcl 10 Mg Tablet PO HS PRN Muscle Spasm Furosemide 20 mg 11/19/24 09:00 11/19/24 08:02 Furosemide 20 Mg Tablet PO 20 mg DAILY MURRAY Administration Sodium Chloride 1,000 mls @ 125 mls/hr 11/18/24 18:25 11/19/24 04:39 Normal Saline Iv IV CONT 125 mls/hr .Q8H MURRAY Administration Ceftriaxone Sodium 2 gm in 100 mls @ 200 mls/hr 11/19/24 12:00 Rocephin 2 Gm/Ns 100 Ml IVPB Q24H MURRAY Metronidazole 500 mg in 100 mls @ 100 mls/hr 11/19/24 14:00 Flagyl 500 Mg/Iso Soln 100 Ml IVPB Q8H MURRAY Melatonin 10 mg 11/18/24 21:00 11/18/24 22:06 Melatonin 5 Mg Tablet PO 10 mg QHS MURRAY Administration Metoprolol Succinate 12.5 mg 11/18/24 21:00 11/18/24 22:05 Metoprolol Succinate Ext Rel 12.5 Mg Tabcr PO 12.5 mg HS MURRAY Administration Morphine Sulfate 2 mg 11/18/24 18:22 Morphine Sulfate (*Crx) 2 Mg/Ml Inj IV PUSH Q2H PRN Pain Rated 7-10 Non-Formulary Medication 1 each 11/18/24 20:52 Nonformulary Nutritional Supplement XX 11/19/24 20:51 PRN PRN PROTOCOL Non-Formulary Medication 1 each 11/18/24 20:53 Nonformulary Nutritional Supplement XX 11/19/24 20:52 PRN PRN PROTOCOL Ondansetron HCl 4 mg 11/18/24 18:22 Ondansetron Inj 4 Mg/2 Ml Vial IV PUSH Q4H PRN Nausea Pantoprazole Sodium 40 mg 11/19/24 09:00 11/19/24 08:00 Pantoprazole 40 Mg Tablet PO 40 mg BID MURRAY Administration Zolpidem Tartrate 5 mg 11/18/24 21:00 11/18/24 22:05 Zolpidem Tartrate (*Crx) 5 Mg Tablet PO 5 mg HS MURRAY Administration Radiology Results: ITS Impressions Abdomen/Pelvis CT 11/18/24 16:41 IMPRESSION: 1. Air seen in the wall of the urinary bladder suggestive of emphysematous cystitis. Clinical correlation and follow-up advised. Minimal air is seen anterior to the urinary bladder which may indicate infection or less likely perforation in the area bladder. Clinical correlation and follow-up advised. 2. Bilateral renal cysts. 3. Abdominal wall hernia with bowel content. Nurse Emelia Roberts was notified with the result of the patient at 5:00 PM on November 18, 2024. Labs Labs: Laboratory Results - last 24 hr 11/18/24 11/18/24 11/18/24 14:24 14:25 15:43 WBC 5.9 RBC 4.06 L Hgb 12.4 Hct 39.7 MCV 97.8 MCH 30.5 MCHC 31.2 L RDW 15.9 H Plt Count 192 MPV 10.2 Immature Gran % (Auto) 0.2 Neut % (Auto) 67.9 Lymph % (Auto) 21.7 [place] % (Auto) 7.3 Eos % (Auto) 1.9 Baso % (Auto) 1.0 Lymph # (Auto) 1.28 [place] # (Auto) 0.4 Eos # (Auto) 0.1 Baso # (Auto) 0.1 Abs Immat Gran (auto) 0.01 Absolute Neuts (auto) 4.0 Absolute Nucleated RBC 0.000 Nucleated RBC % 0.0 PT 13.1 INR 0.9 APTT 25.1 Sodium 142 Potassium 3.6 Chloride 110 H Carbon Dioxide 22 Anion Gap 10 BUN 41 H Creatinine 1.46 H Estim Creat Clear Calc 31 Estimated GFR 35 L Glucose 80 Lactic Acid 1.0 Calcium 9.9 Magnesium Total Bilirubin 0.4 AST 37 H ALT 23 Alkaline Phosphatase 116 Troponin I < 0.012 C-Reactive Protein 0.9 Total Protein 7.0 Albumin 4.2 Urine Color Light orange Urine Appearance Cloudy H Urine pH 5.5 Ur Specific [place] 1.009 Urine Protein 2+ H Urine Glucose (UA) Negative Urine Ketones Negative Ur Blood (Man) 3+ H Urine Nitrate Negative Urine Bilirubin Negative Urine Urobilinogen 0.2 Leukocyte Esterase Rfl 2+ H Urine RBC >100 H Urine WBC 51-100 H Ur Squamous Epith Cells None seen Urine Bacteria 4+ H Urine Casts 0-2 11/19/24 05:02 WBC 4.5 RBC 3.51 L Hgb 10.7 L Hct 34.7 L MCV 98.9 MCH 30.5 MCHC 30.8 L RDW 16.0 H Plt Count 156 MPV 10.4 Immature Gran % (Auto) Neut % (Auto) Lymph % (Auto) [place] % (Auto) Eos % (Auto) Baso % (Auto) Lymph # (Auto) [place] # (Auto) Eos # (Auto) Baso # (Auto) Abs Immat Gran (auto) Absolute Neuts (auto) Absolute Nucleated RBC Nucleated RBC % PT INR APTT Sodium 141 Potassium 3.3 L Chloride 114 H Carbon Dioxide 19 L Anion Gap 8 BUN 31 H D Creatinine 1.02 H Estim Creat Clear Calc 44 Estimated GFR 53 L Glucose 81 Lactic Acid Calcium 9.2 Magnesium 1.8 Total Bilirubin AST ALT Alkaline Phosphatase Troponin I C-Reactive Protein Total Protein Albumin Urine Color Urine Appearance Urine pH Ur Specific [place] Urine Protein Urine Glucose (UA) Urine Ketones Ur Blood (Man) Urine Nitrate Urine Bilirubin Urine Urobilinogen Leukocyte Esterase Rfl Urine RBC Urine WBC Ur Squamous Epith Cells Urine Bacteria Urine Casts Quality VTE Prophylaxis VTE prophylaxis: mechanical ordered
--- NOTE | 2024-11-19 10:39 | P.CONGS_ITS ---
Assessment and Plan Assessment and plan (1) Recurrent incisional hernia: Code(s): K43.2 - Incisional hernia without obstruction or gangrene Status: Acute Assessment and Plan: * This is the reason for our consultation. The patient has been admitted with emphysematous cystitis and had an incidental finding of her chronic recurrent incisional hernia noted on her CT scan on admission. Her hernia is symptomatic at times, but she knows how to manually reduce the hernia at home which resolves her symptoms. The hernia on CT appears to contain some loops of bowel, but there are no signs of obstruction or incarceration/strangulation. She is not having any pain associated with the hernia and I am able to reduce it on exam today. There is no indication for emergent surgical management at this time. We would recommend to continue treating her acute urinary issues and she can follow-up as an outpatient once her infection has been treated to discuss options for surgical repair. I will order an abdominal binder that she can wear for support in the interim. She should avoid heavy lifting or strenuous activity that may aggravate her symptoms related to the hernia. We will sign off. Please call with any other surgical questions or concerns. (2) Emphysematous cystitis: Code(s): N30.80 - Other cystitis without hematuria Status: Acute (3) Coronary artery disease: Qualifiers: Coronary Disease-Associated Artery/Lesion type: unspecified vessel or lesion type [place] vs. transplanted heart: [place] heart [facility] Qualified Code(s): I25.10 - Atherosclerotic heart disease of [place] coronary artery without angina pectoris Code(s): I25.10 - Atherosclerotic heart disease of [place] coronary artery without angina pectoris Status: Chronic (4) CHF (congestive heart failure): Code(s): I50.9 - Heart failure, unspecified Status: Acute (5) Hypertension: Code(s): I10 - Essential (primary) hypertension Status: Acute (6) Chronic kidney disease, stage 3b: Code(s): N18.32 - Chronic kidney disease, stage 3b Status: Acute (7) Antiplatelet or antithrombotic long-term use: Code(s): Z79.02 - correction (current) use of antithrombotics/antiplatelets Status: Acute Plan I have discussed the patient's case and plan of care with Dr. Cartwright. History of Present Illness Consult details Consult date: 11/19/24 Reason for consult: other (Ventral hernia containing bowel) Requesting physician: Pat Latif, YANELI Narrative: This is a 74-year-old woman with a history of CHF, CVA on Plavix, CAD, and multiple other comorbidities, who we have been asked to see in surgical consultation for a ventral hernia. She presented to the ED yesterday for urinary symptoms and right flank pain, and has been admitted with emphysematous cystitis. She had a CT scan of the abdomen and pelvis in the ED that showed findings suggestive of emphysematous cystitis, as well as an incidental finding of an abdominal wall hernia containing nonobstructed bowel loops. She is currently being treated with IV antibiotics and continues on her Plavix. She is not having any abdominal pain associated with her hernia. She reports noticing a bulge in her mid upper abdomen since late 2018 after her right hemicolectomy for ascending colon cancer. Her hernia will bulge out and cause some pain after she has had a lot of activity or after eating large meals. She typically tries to monitor her meals and is careful not to over eat. She will lie back and manually reduce her hernia at home, which alleviates her discomfort. She is not having any acute concerns or complaints in regards to her hernia. Her bowels have been moving. She denies any nausea or vomiting. No signs of an obstruction on the CT scan. She has had multiple previous abdominal surgeries. She had an appendectomy, cholecystectomy, a hysterectomy through a lower abdominal midline incision, from which she developed an incisional hernia that was repaired with a posterior component separation and [place] [address] Frank. She developed a recurrent incisional hernia and had a laparoscopic repair with mesh in [address] Frank. Review of Systems 2 Review of Systems: All systems reviewed & are unremarkable except as noted in HPI and below PMFSH Past Medical History Medical History Gastroesophageal reflux Ventral hernia Cerebrovascular accident Irritable bowel syndrome with diarrhea Hyperlipidemia Hypertension Coronary artery disease Reported [place] in 1999. Colon cancer Surgical History Surgical History History of incisional hernia repair History of hysterectomy History of cholecystectomy History of appendectomy History of coronary artery stent placement History of colon resection Family History Family History Father Family history of heart disease in male family member before age 55 Cancer, bladder, neck Social History Social History Social History: Surrogate medical decision maker: Allan Dominguez, spouse. Code status: Full code. Smoking packs per day: 1 Smoking cigarettes per day: 20.0 Years smoked: 30 Smoking pack-years: 30.00 Smoking status: Former smoker Second hand tobacco smoke exposure: No Alcohol intake: never Substance use: never Substance use type: does not use Do You Feel Safe in your Home?: Yes Lack of Transportation: No Lack of Food: Never True Current Housing: I Have Housing Concerned About Future Housing: No Difficulty Paying Gas/Electric Bills: No Difficulty Paying for Meds: No Currently Unemployed: No Education: High School Diploma/GED Difficulty w/ Childcare or Family Care: No Living arrangements: with family Spiritual care concerns: No Agree to blood products: Yes Meds Home Medications and Allergies Home Medications ?Medication ?Instructions ?Recorded ?Confirmed ?Type furosemide 20 mg tablet (Lasix) 20 mg PO DAILY 07/13/19 11/18/24 History omeprazole 40 mg capsule,delayed 40 mg PO DAILY 07/13/19 11/18/24 History release allopurinol 300 mg tablet 300 mg PO DAILY 03/20/24 11/18/24 History coenzyme Q10 75 mg capsule (Ultra 75 mg PO DAILY 03/20/24 11/18/24 History CoQ10) cyclobenzaprine 10 mg tablet 10 mg PO HS 03/20/24 11/18/24 History melatonin 10 mg capsule 10 mg PO QHS 03/20/24 11/18/24 History potassium citrate 99 mg capsule 99 mg PO DAILY 03/20/24 11/18/24 History sour ruffin extract 1,000 mg 1,000 mg PO DAILY 03/20/24 11/18/24 History capsule (Tart Ruffin Extract) atorvastatin 20 mg tablet 20 mg PO DAILY 06/18/24 11/18/24 History aspirin 81 mg tablet,delayed 81 mg PO HS 08/13/24 11/18/24 History release clopidogrel 75 mg tablet 75 mg PO DAILY 08/13/24 11/18/24 History metoprolol succinate 25 mg 12.5 mg PO HS 11/18/24 11/18/24 History tablet,extended release 24 hr zolpidem 5 mg tablet 5 mg PO 11/18/24 11/18/24 History Allergies Allergy/AdvReac Type Severity Reaction Status Date / Time fenofibrate Allergy Intermediate ITCHING, Verified 11/18/24 14:18 HIVES ciprofloxacin Allergy Unknown Unknown Verified 11/18/24 14:18 Penicillins Allergy Unknown Unknown Verified 11/18/24 14:18 Vital Signs Vital Signs - 24 hr 11/18/24 14:14 11/18/24 15:00 11/18/24 16:00 Temperature 97.5 F L 97.8 F 97.8 F Pulse Rate 70 68 70 Respiratory Rate 16 16 16 Blood Pressure 144/82 H 142/80 H 127/70 Pulse Oximetry 97 100 99 Oxygen Delivery Room Air 11/18/24 17:00 11/18/24 18:00 11/18/24 19:37 Temperature 97.9 F 97.8 F 97.6 F Pulse Rate 89 82 86 Respiratory Rate 16 16 20 Blood Pressure 160/79 H 151/84 H 175/88 H Pulse Oximetry 98 100 100 Oxygen Delivery 11/18/24 19:54 11/18/24 22:05 11/19/24 04:50 Temperature 97.6 F Pulse Rate 77 72 Respiratory Rate 20 Blood Pressure 116/60 Pulse Oximetry 96 Oxygen Delivery Room Air 11/19/24 08:01 Temperature Pulse Rate Respiratory Rate Blood Pressure Pulse Oximetry Oxygen Delivery Room Air Exam 2 Const: General: comfortable and no acute distress Nutritional Appearance: o verweight Orientation/consciousness: patient oriented x3 HENMT: Head: normocephalic and atraumatic Ears: hearing grossly normal bilaterally Mouth: Yes moist mucous membranes Eyes: General: appearance normal, both eyes and all related structures P upils: Equal, round and reactive pupils present Neck: Neck: normal visual inspection and full ROM Resp: Effort & Inspection: no respiratory distress Auscultation: clear to auscultation bilaterally Cardio: Rate: regular rate Rhythm: regular rhythm Peripheral pulses: P eripheral pulses 2+ throughout GI: Inspection: non-distended GI Palp: Yes Soft to palpation, No Tenderness to palpation present (GI), No Guarding due to palpation present (GI) and No Rebound tenderness present Auscultation: normal bowel sounds Other: Incisional hernia with a bulge in the mid upper abdomen with a large midline scar, the hernia is soft and completely reducible and is nontender. Skin: General skin exam: normal color Neuro: General: moves all extremities and no focal motor deficits Speech: n ormal speech Motor exam (neuro): 5/5 motor strength present throughout Extrem: General: normal to inspection and no edema Psych: Mental Status: mental status grossly normal Attitude: cooperative Insight: Good insight present (Psych) Judgement: Good judgement present (Psych) Results Labs 11/19/24 05:02 11/19/24 05:02 Labs: Abnormal lab results 11/18/24 11/18/24 11/19/24 Range/Units 14:24 14:25 05:02 RBC 4.06 L 3.51 L (4.2-5.4) M/mm3 Hgb 10.7 L (12.0-15.0) g/dL Hct 34.7 L (37.0-47.0) % MCHC 31.2 L 30.8 L (32-36) g/dl RDW 15.9 H 16.0 H (11.5-14.5) % Potassium 3.3 L (3.4-5.0) mmol/L Chloride 110 H 114 H (98-107) mmol/L Carbon Dioxide 19 L (22-30) mmol/L BUN 41 H 31 H D (7-17) mg/dL Creatinine 1.46 H 1.02 H (0.7-1.0) mg/dL Estimated GFR 35 L 53 L (59 - ) AST 37 H (14-36) U/L Urine Appearance Cloudy H (Clear) Urine Protein 2+ H (Negative) mg/dL Ur Blood (Man) 3+ H (Negative) Leukocyte Esterase Rfl 2+ H (Negative) ANDRAE/UL Urine RBC >100 H (0-2) /hpf Urine WBC 51-100 H (0-3) /hpf Urine Bacteria 4+ H /hpf Diabetes panel 11/18/24 11/19/24 Range/Units 14:24 05:02 Sodium 142 141 (137-145) mmol/L Potassium 3.6 3.3 L (3.4-5.0) mmol/L Chloride 110 H 114 H (98-107) mmol/L Carbon Dioxide 22 19 L (22-30) mmol/L BUN 41 H 31 H D (7-17) mg/dL Creatinine 1.46 H 1.02 H (0.7-1.0) mg/dL Glucose 80 81 (65-110) mg/dL Calcium 9.9 9.2 (8.4-10.2) mg/dL AST 37 H (14-36) U/L ALT 23 (6-35) U/L Alkaline Phosphatase 116 (38-126) U/L Total Protein 7.0 (6.3-8.2) g/dL Albumin 4.2 (3.5-5.1) g/dL Calcium panel 11/18/24 11/19/24 Range/Units 14:24 05:02 Calcium 9.9 9.2 (8.4-10.2) mg/dL Albumin 4.2 (3.5-5.1) g/dL Pituitary panel 11/18/24 11/19/24 Range/Units 14:24 05:02 Sodium 142 141 (137-145) mmol/L Potassium 3.6 3.3 L (3.4-5.0) mmol/L Chloride 110 H 114 H (98-107) mmol/L Carbon Dioxide 22 19 L (22-30) mmol/L BUN 41 H 31 H D (7-17) mg/dL Creatinine 1.46 H 1.02 H (0.7-1.0) mg/dL Glucose 80 81 (65-110) mg/dL Calcium 9.9 9.2 (8.4-10.2) mg/dL Adrenal panel 11/18/24 11/19/24 Range/Units 14:24 05:02 Sodium 142 141 (137-145) mmol/L Potassium 3.6 3.3 L (3.4-5.0) mmol/L Chloride 110 H 114 H (98-107) mmol/L Carbon Dioxide 22 19 L (22-30) mmol/L BUN 41 H 31 H D (7-17) mg/dL Creatinine 1.46 H 1.02 H (0.7-1.0) mg/dL Glucose 80 81 (65-110) mg/dL Calcium 9.9 9.2 (8.4-10.2) mg/dL Total Bilirubin 0.4 (0.2-1.3) mg/dL AST 37 H (14-36) U/L ALT 23 (6-35) U/L Alkaline Phosphatase 116 (38-126) U/L Total Protein 7.0 (6.3-8.2) g/dL Albumin 4.2 (3.5-5.1) g/dL All other labs normal. Imaging Additional studies: ITS Impressions Abdomen/Pelvis CT 11/18/24 16:41 IMPRESSION: 1. Air seen in the wall of the urinary bladder suggestive of emphysematous cystitis. Clinical correlation and follow-up advised. Minimal air is seen anterior to the urinary bladder which may indicate infection or less likely perforation in the area bladder. Clinical correlation and follow-up advised. 2. Bilateral renal cysts. 3. Abdominal wall hernia with bowel content. Nurse Emelia Roberts was notified with the result of the patient at 5:00 PM on November 18, 2024.
[2024-11-19] MEDS: ACETAMINOPHEN 325 MG TABLET 650 MG PO (10:47)
[2024-11-19] MEDS: cefTRIAXone 2 GM/NS 100 ML 2 GM/100 ML BAG IVPB (12:14)
[2024-11-19] MEDS: metroNIDAZOLE 500 MG/ISO 100ML 500 MG/100 ML BAG 100 MG IVPB ×2 (13:57→22:43)
[2024-11-19 14:00] VITALS: BP 118/58; PULSE 66; RESP 14; TEMP 36.2; O2SAT 100
[2024-11-19] MEDS: BISMUTH SUBSALICYLATE 262 MG CHEWABLE TABLET 524 MG PO ×2 (18:30→20:17)
[2024-11-19 19:52] VITALS: BP 139/74; PULSE 75; RESP 20; TEMP 36.5; O2SAT 100
[2024-11-19 20:17] VITALS: PULSE 75
[2024-11-19] MEDS: METOPROLOL SUCCINATE EXT REL 12.5 MG TABCR PO (20:17)
[2024-11-19] MEDS: ZOLPIDEM TARTRATE (*CRX) 5 MG TABLET PO (20:17)
[2024-11-19] MEDS: ASPIRIN 81 MG ENTERIC TABLET PO (20:17)
[2024-11-19] MEDS: MELATONIN 5 MG TABLET 10 MG PO (20:17)
[2024-11-20 04:22] VITALS: BP 123/68; PULSE 75; RESP 20; TEMP 36.4; O2SAT 96
[2024-11-20 05:36] LABS: Basophils Percent Auto 1.3 % (0.2-1.2); Eosinophils Absolute Auto 0.1 K/mm3 (0-0.3); Eosinophils Percent Auto 4.2 % (0-4.4); Hematocrit 33.2 % (37.0-47.0); Hemoglobin 10.5 g/dL (12.0-15.0); Immature Granulocyte Absolute 0.01 K/mm3 (0.00-0.031); Immature Granulocyte Percent A 0.3 % (0-0.5); Lymphocytes Absolute Auto 0.73 K/mm3 (0.9-3.2); Lymphocytes Percent Auto 23.3 % (18.3-44.2); Mean Corpuscular HGB Conc 31.6 g/dl (32-36); Mean Corpuscular Hemoglobin 30.7 pg (26-34); Mean Corpuscular Volume 97.1 fl (80-100); Mean Platelet Volume 9.9 fl (7.4-10.4); Monocytes Absolute Auto 0.3 K/mm3 (0.1-0.6); Monocytes Percent Auto 10.9 % (2.6-8.5); Neutrophils Absolute Auto 1.9 K/mm3 (1.3-6.7); Platelet Count Result 146 k/mm3 (150-375); Red Blood Count 3.42 M/mm3 (4.2-5.4); Red Cell Distribution Width 15.9 % (11.5-14.5); White Blood Count 3.1 K/mm3 (4.5-10.0)
[2024-11-20] MEDS: metroNIDAZOLE 500 MG/ISO 100ML 500 MG/100 ML BAG 100 MG IVPB ×3 (05:39→21:52)
[2024-11-20 06:40] LABS: Alanine Aminotransferase 14 U/L (6-35); Alkaline Phosphatase 95 U/L (38-126); Anion Gap 5 mmol/L (4-12); Aspartate Amino Transferase 25 U/L (14-36); Bilirubin,Total 0.3 mg/dL (0.2-1.3); Blood Urea Nitrogen 23 mg/dL (7-17); Calcium 9.1 mg/dL (8.4-10.2); Carbon Dioxide 21 mmol/L (22-30); Chloride 116 mmol/L (98-107); Estimated CRCL calculation 39 ml/min; Estimated Glomerular Filt Rate 45; Glucose 78 mg/dL (65-110); Magnesium 1.6 mg/dL (1.6-2.3); Potassium 3.6 mmol/L (3.4-5.0); Sodium 142 mmol/L (137-145)
[2024-11-20] MEDS: MAGNESIUM SULF 1 GM/D5W 100 ML 1 GM/100 ML BAG IVPB (08:39)
[2024-11-20] MEDS: POTASSIUM CHLORIDE 20 MEQ ER TABLET PO (08:46)
[2024-11-20] MEDS: SODIUM CHLORIDE 0.9% IV 1,000 ML 75 ML IV CONT (08:46)
[2024-11-20 08:48] VITALS: RESP 20; O2SAT 96
[2024-11-20] MEDS: FUROSEMIDE 20 MG TABLET PO (08:48)
[2024-11-20] MEDS: ATORVASTATIN 20 MG TABLET PO (08:48)
[2024-11-20] MEDS: CLOPIDOGREL BISULFATE 75 MG TABLET PO (08:48)
[2024-11-20] MEDS: PANTOPRAZOLE 40 MG TABLET PO ×2 (08:48→16:53)
[2024-11-20] MEDS: allopurinoL 300 MG TABLET PO (08:49)
--- NOTE | 2024-11-20 09:19 | WPDUROPN2 ---
Progress Note: A&P Assessment and Plan (1) Emphysematous cystitis: Code(s): N30.80 - Other cystitis without hematuria Status: Acute Assessment and Plan: - Present on admission Plan 74yoF with hx recurrent UTI admitted 11/18/24 with suspected UTI (emphysematous cystitis, likely 2/2 gas-forming bacteria such as E.Coli or Klebsiella) - Urine culture pending, blood cultures NGTD on IV ceftriaxone - Maintain indwelling Mcpherson catheter pending final urine culture, remove Mcpherson prior to discharge - Plan to repeat CT imaging PRIOR to Mcpherson removal to ensure resolution of gas - Renal function near baseline, Cr 1.2 (Hx CKD) - No plan for inpatient surgical intervention Plan to follow-up in office with [facility] team in 2-3 weeks. Last office visit was 01/2023. Subjective Subjective Date/Time Seen: 11/20/24 09:19 Interval history: NAEO, Afebrile Patient reports nausea and intermittent left low back pain today Indwelling Mcpherson currently draining light charlette Exam Const: General: comfortable and no acute distress HENMT: Face/Nose/Sinus: Normal nares present Eyes: General: appearance normal, both eyes and all related structures Resp: Effort & Inspection: normal respiratory effort Urinary Catheter: Urinary Catheter: patent and draining Skin: General skin exam: normal color Neuro: Speech: normal speech Psych: Affect: normal affect Objective Data Vital Signs Vital Signs: Vital Signs - 24 hr 11/19/24 14:00 11/19/24 19:52 11/19/24 20:17 Temperature 97.1 F L 97.7 F Pulse Rate 66 75 75 Respiratory Rate 14 20 Blood Pressure 118/58 L 139/74 Pulse Oximetry 100 100 Oxygen Delivery 11/19/24 20:20 11/20/24 04:22 Temperature 97.6 F Pulse Rate 75 Respiratory Rate 20 Blood Pressure 123/68 Pulse Oximetry 96 Oxygen Delivery Room Air Intake/Output Intake/Output: Intake & Output 11/17/24 11/18/24 11/19/24 11/20/24 23:59 23:59 23:59 23:59 Intake Total 1350 4213.3 1490 Output Total 1250 1925 600 Balance 100 2288.3 890 Meds/Results Medications: Active Medications Generic Name Dose Route Start Last Admin Trade Name Freq PRN Reason Stop Dose Admin Acetaminophen 650 mg 11/18/24 19:45 11/19/24 10:47 Acetaminophen 325 Mg Tablet PO 650 mg Q6H PRN Administration Mild Pain (1-3) or Fever Allopurinol 300 mg 11/19/24 09:00 11/20/24 08:49 Allopurinol 300 Mg Tablet PO 300 mg DAILY MURRAY Administration Aspirin 81 mg 11/18/24 21:00 11/19/24 20:17 Aspirin 81 Mg Enteric Tablet PO 81 mg HS MURRAY Administration Atorvastatin Calcium 20 mg 11/19/24 09:00 11/20/24 08:48 Atorvastatin 20 Mg Tablet PO 20 mg DAILY MURRAY Administration Bismuth Subsalicylate 524 mg 11/19/24 18:04 11/19/24 20:17 Bismuth Subsalicylate 262 Mg Chewable Tablet PO 524 mg Q1H PRN Administration Diarrhea Clopidogrel Bisulfate 75 mg 11/19/24 09:00 11/20/24 08:48 Clopidogrel Bisulfate 75 Mg Tablet PO 75 mg DAILY MURRAY Administration Cyclobenzaprine HCl 10 mg 11/18/24 20:45 Cyclobenzaprine Hcl 10 Mg Tablet PO HS PRN Muscle Spasm Furosemide 20 mg 11/19/24 09:00 11/20/24 08:48 Furosemide 20 Mg Tablet PO 20 mg DAILY MURRAY Administration Sodium Chloride 1,000 mls @ 75 mls/hr 11/18/24 18:25 11/20/24 08:46 Normal Saline Iv IV CONT 0 mls/hr .[id number] MURRAY Infusion Ceftriaxone Sodium 2 gm in 100 mls @ 200 mls/hr 11/19/24 12:00 11/19/24 12:14 Rocephin 2 Gm/Ns 100 Ml IVPB 200 mls/hr Q24H MURRAY Administration Metronidazole 500 mg in 100 mls @ 100 mls/hr 11/19/24 14:00 11/20/24 06:39 Flagyl 500 Mg/Iso Soln 100 Ml IVPB Infused Q8H MURRAY Infusion Melatonin 10 mg 11/18/24 21:00 11/19/24 20:17 Melatonin 5 Mg Tablet PO 10 mg QHS MURRAY Administration Metoprolol Succinate 12.5 mg 11/18/24 21:00 11/19/24 20:17 Metoprolol Succinate Ext Rel 12.5 Mg Tabcr PO 12.5 mg HS MURRAY Administration Morphine Sulfate 2 mg 11/18/24 18:22 Morphine Sulfate (*Crx) 2 Mg/Ml Inj IV PUSH Q2H PRN Pain Rated 7-10 Ondansetron HCl 4 mg 11/18/24 18:22 Ondansetron Inj 4 Mg/2 Ml Vial IV PUSH Q4H PRN Nausea Pantoprazole Sodium 40 mg 11/19/24 09:00 11/20/24 08:48 Pantoprazole 40 Mg Tablet PO 40 mg BID MURRAY Administration Zolpidem Tartrate 5 mg 11/18/24 21:00 11/19/24 20:17 Zolpidem Tartrate (*Crx) 5 Mg Tablet PO 5 mg HS MURRAY Administration Radiology Results: ITS Impressions Abdomen/Pelvis CT 11/18/24 16:41 IMPRESSION: 1. Air seen in the wall of the urinary bladder suggestive of emphysematous cystitis. Clinical correlation and follow-up advised. Minimal air is seen anterior to the urinary bladder which may indicate infection or less likely perforation in the area bladder. Clinical correlation and follow-up advised. 2. Bilateral renal cysts. 3. Abdominal wall hernia with bowel content. Nurse Emelia Roberts was notified with the result of the patient at 5:00 PM on November 18, 2024. Labs Labs: Laboratory Results - last 24 hr 11/20/24 04:57 WBC 3.1 L RBC 3.42 L Hgb 10.5 L Hct 33.2 L MCV 97.1 MCH 30.7 MCHC 31.6 L RDW 15.9 H Plt Count 146 L MPV 9.9 Immature Gran % (Auto) 0.3 Neut % (Auto) 60.0 Lymph % (Auto) 23.3 [place] % (Auto) 10.9 H Eos % (Auto) 4.2 Baso % (Auto) 1.3 H Lymph # (Auto) 0.73 L [place] # (Auto) 0.3 Eos # (Auto) 0.1 Baso # (Auto) 0.0 Abs Immat Gran (auto) 0.01 Absolute Neuts (auto) 1.9 Absolute Nucleated RBC 0.000 Nucleated RBC % 0.0 Sodium 142 Potassium 3.6 Chloride 116 H Carbon Dioxide 21 L Anion Gap 5 BUN 23 H Creatinine 1.18 H Estim Creat Clear Calc 39 Estimated GFR 45 L Glucose 78 Calcium 9.1 Magnesium 1.6 Total Bilirubin 0.3 AST 25 ALT 14 Alkaline Phosphatase 95 Total Protein 5.0 L Albumin 3.0 L
--- NOTE | 2024-11-20 10:18 | P.PNIM_ITS ---
Progress Note: A&P Assessment and Plan (1) Emphysematous cystitis: Code(s): N30.80 - Other cystitis without hematuria Status: Acute Assessment and Plan: * CT abdomen and pelvis with contrast showed: IMPRESSION: 1. Air seen in the wall of the urinary bladder suggestive of emphysematous cystitis. Clinical correlation and follow-up advised. Minimal air is seen anterior to the urinary bladder which may indicate infection or less likely perforation in the area bladder. Clinical correlation and follow-up advised. 2. Bilateral renal cysts. 3. Abdominal wall hernia with bowel content. * Ceftriaxone 2 gram IVPB daily and Metronidazole 500 mg IVPB q 8. * Urology consulted, appreciate recommendations. Patient found to have a prior episode of emphysematous cystitis on 12/16/21. * Patient will need a Mcpherson catheter to gravity drainage until final culture results are available, plan to remove Mcpherson prior to discharge. * She may benefit from a repeat CT scan prior to removal of the catheter to ensure the emphysematous changes have resolved. * Pain regimen. * Urine culture pending. * Blood cultures no growth to date. (2) Hypertension: Code(s): I10 - Essential (primary) hypertension Status: Acute Assessment and Plan: * Blood pressure 123/68. * Lasix 20 mg PO daily and Metoprolol Succinate 12.5 mg PO HS. (3) Coronary artery disease: Qualifiers: Coronary Disease-Associated Artery/Lesion type: unspecified vessel or lesion type [place] vs. transplanted heart: [place] heart Associated angina: without angina Qualified Code(s): I25.10 - Atherosclerotic heart disease of [place] coronary artery without angina pectoris Code(s): I25.10 - Atherosclerotic heart disease of [place] coronary artery without angina pectoris Status: Chronic Assessment and Plan: * Clopidogrel Bisulfate 75 mg PO daily, ECASA 81 mg PO daily, Metoprolol Succinate 12.5 mg PO HS, and Atorvastatin 20 mg PO daily. (4) Chronic kidney disease, stage 3b: Code(s): N18.32 - Chronic kidney disease, stage 3b Status: Acute Assessment and Plan: * BUN 23, Creatinine 1.18, & GFR 45. (5) Ventral hernia: Code(s): K43.9 - Ventral hernia without obstruction or gangrene Status: Acute Assessment and Plan: * CT abdomen and pelvis showed: Abdominal wall hernia with bowel loops and bowel content noted in hernia. * Surgery consulted. Per surgery there is no indication for emergent surgical management at this time. We would recommend to continue treating her acute urinary issues and she can follow-up as an outpatient once her infection has been treated to discuss options for surgical repair. I will order an abdominal binder that she can wear for support in the interim. She should avoid heavy lifting or strenuous activity that may aggravate her symptoms related to the hernia. (6) Gastroesophageal reflux: Code(s): K21.9 - Gastro-esophageal reflux disease without esophagitis Status: Acute Assessment and Plan: * Pantoprazole 40 mg PO BID. (7) Hypokalemia: Code(s): E87.6 - Hypokalemia Status: Acute Assessment and Plan: * Potassium 3.6. * Potassium Chloride 20 meq PO x1. * Monitor level. Subjective Date/time seen: 11/20/24 10:18 Interval history: Patient denies pain at present. Patient denies chest pain, palpitations, hea dache, dizziness, nausea, or vomiting. Reports soreness at IV site. Review of Systems Review of Systems: All systems reviewed & are unremarkable except as noted in HPI and below Exam Const: General: comfortable and no acute distress Resp: Effort & Inspection: normal respiratory effort Auscultation: clear to auscultation bilaterally Cardio: Rate: regular rate Rhythm: regular rhythm GI: GI Palp: Yes Soft to palpation Auscultation: normal bowel sounds Urinary Catheter: Urinary Catheter: patent and draining (charlette ) Neuro: Speech: normal speech Extrem: General: no pedal edema Psych: Mental Status: mental status grossly normal Affect: normal affect Objective Data Vital Signs Vital Signs: Vital Signs - 24 hr 11/19/24 14:00 11/19/24 19:52 11/19/24 20:17 Temperature 97.1 F L 97.7 F Pulse Rate 66 75 75 Respiratory Rate 14 20 Blood Pressure 118/58 L 139/74 Pulse Oximetry 100 100 Oxygen Delivery 11/19/24 20:20 11/20/24 04:22 Temperature 97.6 F Pulse Rate 75 Respiratory Rate 20 Blood Pressure 123/68 Pulse Oximetry 96 Oxygen Delivery Room Air Intake/Output Intake/Output: Intake & Output 11/17/24 11/18/24 11/19/24 11/20/24 23:59 23:59 23:59 23:59 Intake Total 1350 4213.3 1850 Output Total 1250 1925 600 Balance 100 2288.3 1250 Meds/Results Medications: Active Medications Generic Name Dose Route Start Last Admin Trade Name Freq PRN Reason Stop Dose Admin Acetaminophen 650 mg 11/18/24 19:45 11/19/24 10:47 Acetaminophen 325 Mg Tablet PO 650 mg Q6H PRN Administration Mild Pain (1-3) or Fever Allopurinol 300 mg 11/19/24 09:00 11/20/24 08:49 Allopurinol 300 Mg Tablet PO 300 mg DAILY MURRAY Administration Aspirin 81 mg 11/18/24 21:00 11/19/24 20:17 Aspirin 81 Mg Enteric Tablet PO 81 mg HS MURRAY Administration Atorvastatin Calcium 20 mg 11/19/24 09:00 11/20/24 08:48 Atorvastatin 20 Mg Tablet PO 20 mg DAILY MURRAY Administration Bismuth Subsalicylate 524 mg 11/19/24 18:04 11/19/24 20:17 Bismuth Subsalicylate 262 Mg Chewable Tablet PO 524 mg Q1H PRN Administration Diarrhea Clopidogrel Bisulfate 75 mg 11/19/24 09:00 11/20/24 08:48 Clopidogrel Bisulfate 75 Mg Tablet PO 75 mg DAILY MURRAY Administration Cyclobenzaprine HCl 10 mg 11/18/24 20:45 Cyclobenzaprine Hcl 10 Mg Tablet PO HS PRN Muscle Spasm Furosemide 20 mg 11/19/24 09:00 11/20/24 08:48 Furosemide 20 Mg Tablet PO 20 mg DAILY MURRAY Administration Sodium Chloride 1,000 mls @ 75 mls/hr 11/18/24 18:25 11/20/24 08:46 Normal Saline Iv IV CONT 0 mls/hr .[id number] MURRAY Infusion Ceftriaxone Sodium 2 gm in 100 mls @ 200 mls/hr 11/19/24 12:00 11/19/24 12:14 Rocephin 2 Gm/Ns 100 Ml IVPB 200 mls/hr Q24H MURRAY Administration Metronidazole 500 mg in 100 mls @ 100 mls/hr 11/19/24 14:00 11/20/24 06:39 Flagyl 500 Mg/Iso Soln 100 Ml IVPB Infused Q8H MURRAY Infusion Melatonin 10 mg 11/18/24 21:00 11/19/24 20:17 Melatonin 5 Mg Tablet PO 10 mg QHS MURRAY Administration Metoprolol Succinate 12.5 mg 11/18/24 21:00 11/19/24 20:17 Metoprolol Succinate Ext Rel 12.5 Mg Tabcr PO 12.5 mg HS MURRAY Administration Morphine Sulfate 2 mg 11/18/24 18:22 Morphine Sulfate (*Crx) 2 Mg/Ml Inj IV PUSH Q2H PRN Pain Rated 7-10 Ondansetron HCl 4 mg 11/18/24 18:22 Ondansetron Inj 4 Mg/2 Ml Vial IV PUSH Q4H PRN Nausea Pantoprazole Sodium 40 mg 11/19/24 09:00 11/20/24 08:48 Pantoprazole 40 Mg Tablet PO 40 mg BID MURRAY Administration Zolpidem Tartrate 5 mg 11/18/24 21:00 11/19/24 20:17 Zolpidem Tartrate (*Crx) 5 Mg Tablet PO 5 mg HS MURRAY Administration Radiology Results: ITS Impressions Abdomen/Pelvis CT 11/18/24 16:41 IMPRESSION: 1. Air seen in the wall of the urinary bladder suggestive of emphysematous cystitis. Clinical correlation and follow-up advised. Minimal air is seen anterior to the urinary bladder which may indicate infection or less likely perforation in the area bladder. Clinical correlation and follow-up advised. 2. Bilateral renal cysts. 3. Abdominal wall hernia with bowel content. Nurse Emelia Roberts was notified with the result of the patient at 5:00 PM on November 18, 2024. Labs Labs: Laboratory Results - last 24 hr 11/20/24 04:57 WBC 3.1 L RBC 3.42 L Hgb 10.5 L Hct 33.2 L MCV 97.1 MCH 30.7 MCHC 31.6 L RDW 15.9 H Plt Count 146 L MPV 9.9 Immature Gran % (Auto) 0.3 Neut % (Auto) 60.0 Lymph % (Auto) 23.3 [place] % (Auto) 10.9 H Eos % (Auto) 4.2 Baso % (Auto) 1.3 H Lymph # (Auto) 0.73 L [place] # (Auto) 0.3 Eos # (Auto) 0.1 Baso # (Auto) 0.0 Abs Immat Gran (auto) 0.01 Absolute Neuts (auto) 1.9 Absolute Nucleated RBC 0.000 Nucleated RBC % 0.0 Sodium 142 Potassium 3.6 Chloride 116 H Carbon Dioxide 21 L Anion Gap 5 BUN 23 H Creatinine 1.18 H Estim Creat Clear Calc 39 Estimated GFR 45 L Glucose 78 Calcium 9.1 Magnesium 1.6 Total Bilirubin 0.3 AST 25 ALT 14 Alkaline Phosphatase 95 Total Protein 5.0 L Albumin 3.0 L Quality VTE Prophylaxis VTE prophylaxis: mechanical ordered
[2024-11-20] MEDS: ACETAMINOPHEN 325 MG TABLET 650 MG PO (11:09)
[2024-11-20] MEDS: cefTRIAXone 2 GM/NS 100 ML 2 GM/100 ML BAG IVPB (12:11)
[2024-11-20 12:39] VITALS: TEMP 36.5
[2024-11-20 14:00] VITALS: BP 129/69; PULSE 71; RESP 8; O2SAT 99
[2024-11-20] MEDS: ONDANSETRON INJ 4 MG/2 ML VIAL IV PUSH ×2 (14:48→21:51)
[2024-11-20] MEDS: MELATONIN 5 MG TABLET 10 MG PO (21:52)
[2024-11-20] MEDS: ZOLPIDEM TARTRATE (*CRX) 5 MG TABLET PO (21:52)
[2024-11-20] MEDS: ASPIRIN 81 MG ENTERIC TABLET PO (21:52)
[2024-11-20 21:53] VITALS: PULSE 67
[2024-11-20] MEDS: METOPROLOL SUCCINATE EXT REL 12.5 MG TABCR PO (21:53)
[2024-11-20 22:00] VITALS: BP 156/71; PULSE 67; RESP 18; TEMP 36.3; O2SAT 99
[2024-11-21] MEDS: metroNIDAZOLE 500 MG/ISO 100ML 500 MG/100 ML BAG 100 MG IVPB (05:25)
[2024-11-21 06:00] VITALS: BP 136/71; PULSE 71; RESP 18; TEMP 36.6; O2SAT 92
[2024-11-21 06:10] LABS: Basophils Absolute Auto 0.1 K/mm3 (0.0-0.1); Basophils Percent Auto 1.3 % (0.2-1.2); Eosinophils Absolute Auto 0.2 K/mm3 (0-0.3); Eosinophils Percent Auto 4.1 % (0-4.4); Hematocrit 37.1 % (37.0-47.0); Hemoglobin 11.7 g/dL (12.0-15.0); Immature Granulocyte Absolute 0.01 K/mm3 (0.00-0.031); Immature Granulocyte Percent A 0.3 % (0-0.5); Lymphocytes Absolute Auto 0.72 K/mm3 (0.9-3.2); Lymphocytes Percent Auto 18.3 % (18.3-44.2); Mean Corpuscular HGB Conc 31.5 g/dl (32-36); Mean Corpuscular Hemoglobin 30.5 pg (26-34); Mean Corpuscular Volume 96.6 fl (80-100); Mean Platelet Volume 9.4 fl (7.4-10.4); Monocytes Absolute Auto 0.4 K/mm3 (0.1-0.6); Monocytes Percent Auto 9.4 % (2.6-8.5); Neutrophils Absolute Auto 2.6 K/mm3 (1.3-6.7); Neutrophils Percent Auto 66.6 % (45.5-73.1); Platelet Count Result 155 k/mm3 (150-375); Red Blood Count 3.84 M/mm3 (4.2-5.4); Red Cell Distribution Width 15.9 % (11.5-14.5); White Blood Count 3.9 K/mm3 (4.5-10.0)
[2024-11-21 06:22] LABS: Alanine Aminotransferase 15 U/L (6-35); Albumin Level 3.4 g/dL (3.5-5.1); Alkaline Phosphatase 102 U/L (38-126); Anion Gap 6 mmol/L (4-12); Aspartate Amino Transferase 32 U/L (14-36); Bilirubin,Total 0.4 mg/dL (0.2-1.3); Blood Urea Nitrogen 21 mg/dL (7-17); Calcium 9.8 mg/dL (8.4-10.2); Carbon Dioxide 24 mmol/L (22-30); Chloride 111 mmol/L (98-107); Estimated CRCL calculation 39 ml/min; Estimated Glomerular Filt Rate 46; Glucose 80 mg/dL (65-110); Magnesium 1.8 mg/dL (1.6-2.3); Potassium 3.6 mmol/L (3.4-5.0); Sodium 141 mmol/L (137-145)
[2024-11-21 09:07] VITALS: RESP 18; O2SAT 92
[2024-11-21] MEDS: allopurinoL 300 MG TABLET PO (09:07)
[2024-11-21] MEDS: FUROSEMIDE 20 MG TABLET PO (09:07)
[2024-11-21] MEDS: PANTOPRAZOLE 40 MG TABLET PO ×2 (09:07→16:21)
[2024-11-21] MEDS: CLOPIDOGREL BISULFATE 75 MG TABLET PO (09:07)
[2024-11-21] MEDS: ATORVASTATIN 20 MG TABLET PO (09:07)
--- NOTE | 2024-11-21 09:38 | P.PNIM_ITS ---
Progress Note: A&P Assessment and Plan (1) Emphysematous cystitis: Code(s): N30.80 - Other cystitis without hematuria Status: Acute Assessment and Plan: * CT abdomen and pelvis with contrast showed: IMPRESSION: 1. Air seen in the wall of the urinary bladder suggestive of emphysematous cystitis. Clinical correlation and follow-up advised. Minimal air is seen anterior to the urinary bladder which may indicate infection or less likely perforation in the area bladder. Clinical correlation and follow-up advised. 2. Bilateral renal cysts. 3. Abdominal wall hernia with bowel content. * Ceftriaxone 2 gram IVPB daily * -->Discussed with [facility] pharm plan to D/C Metronidazole today due to no GI involvement per surg note on 11/19 * Urology consulted, appreciate recommendations. Patient found to have a prior episode of emphysematous cystitis on 12/16/21. * Patient will need a King catheter to gravity drainage until final culture results are available, plan to remove King prior to discharge. * She may benefit from a repeat CT scan prior to removal of the catheter to ensure the emphysematous changes have resolved. * -->Updated pt on the plan to await urine culture and once that is resulted, proceed with repeat CT scan of A/P to make sure cystitis is improving and then followed by D/C of king * Pain regimen. * Urine culture pending. * Blood cultures no growth to date. (2) Hypertension: Code(s): I10 - Essential (primary) hypertension Status: Acute Assessment and Plan: * Blood pressure 123/66. * Lasix 20 mg PO daily and Metoprolol Succinate 12.5 mg PO HS. (3) Coronary artery disease: Qualifiers: Associated angina: without angina Coronary Disease-Associated Artery/Lesion type: unspecified vessel or lesion type [place] vs. transplanted heart: [place] heart Qualified Code(s): I25.10 - Atherosclerotic heart disease of [place] coronary artery without angina pectoris Code(s): I25.10 - Atherosclerotic heart disease of [place] coronary artery without angina pectoris Status: Chronic Assessment and Plan: * Clopidogrel Bisulfate 75 mg PO daily, ECASA 81 mg PO daily, Metoprolol Succinate 12.5 mg PO HS, and Atorvastatin 20 mg PO daily. * Denies any sx upon examination (4) Chronic kidney disease, stage 3b: Code(s): N18.32 - Chronic kidney disease, stage 3b Status: Acute Assessment and Plan: * BUN 23, Creatinine 1.14, & GFR 46. * Continue to trend labs (5) Ventral hernia: Code(s): K43.9 - Ventral hernia without obstruction or gangrene Status: Acute Assessment and Plan: * CT abdomen and pelvis showed: Abdominal wall hernia with bowel loops and bowel content noted in hernia. * Hernia is reducible. * Surgery consulted. Per surgery there is no indication for emergent surgical management at this time. We would recommend to continue treating her acute urinary issues and she can follow-up as an outpatient once her infection has been treated to discuss options for surgical repair. I will order an abdominal binder that she can wear for support in the interim. She should avoid heavy lifting or strenuous activity that may aggravate her symptoms related to the hernia. (6) Gastroesophageal reflux: Code(s): K21.9 - Gastro-esophageal reflux disease without esophagitis Status: Acute Assessment and Plan: * Pantoprazole 40 mg PO BID. (7) Hypokalemia: Code(s): E87.6 - Hypokalemia Status: Acute Assessment and Plan: * Potassium 3.6. * Potassium Chloride 20 meq PO x1. * Monitor level. Plan Awaiting UC --> repeat CT -->King removal Subjective Date/time seen: 11/21/24 1113 Interval history: Pt resting comfortably in bed, reporting no discomfort, even in lower back and suprapubic region today. Updated her on the plan to await urine culture and once that is resulted, proceed with repeat CT scan of A/P to make sure cystitis is improving and then followed by D/C of king. D/C Flagyl today with help from [facility] pharm. Plan to switch to oral abx when UC results. Pt very pleasant and agreeable with the plan. Review of Systems Review of Systems: 12 systems were reviewed and are negativ e except for as per HPI. All systems reviewed & are unremarkable except as noted in HPI and below Exam Const: General: comfortable and no acute distress HENMT: Face/Nose/Sinus: Normal nares present Mouth: Yes moist mucous membranes Eyes: General: appearance normal, both eyes and all related structures Sclera: sclerae normal Neck: Neck: supple and no JVD Resp: Effort & Inspection: normal respiratory effort Auscultation: clear to auscultation bilaterally Cardio: Rate: regular rate Rhythm: regular rhythm GI: Inspection: non-distended Auscultation: normal bowel sounds Other: Large ventral hernia which is reducible. Denies CVA ttp. Urinary Catheter: Urinary Catheter: patent and draining (charlette ) Skin: General skin exam: normal color and no rashes or lesions noted Wounds: no wounds Neuro: Speech: normal speech Motor exam (neuro): Normal motor muscle tone present throughout Sensory Exam: normal sensation Extrem: General: normal to inspection and no pedal edema Psych: Mental Status: mental status grossly normal Affect: normal affect Objective Data Vital Signs Vital Signs: Vital Signs - 24 hr 11/20/24 12:39 11/20/24 14:00 11/20/24 21:45 Temperature 97.7 F Pulse Rate 71 Respiratory Rate 8 L Blood Pressure 129/69 Pulse Oximetry 99 Oxygen Delivery Room Air 11/20/24 21:53 11/20/24 22:00 11/21/24 06:00 Temperature 97.3 F L 97.8 F Pulse Rate 67 67 71 Respiratory Rate 18 18 Blood Pressure 156/71 H 136/71 Pulse Oximetry 99 92 Oxygen Delivery Intake/Output Intake/Output: Intake & Output 11/18/24 11/19/24 11/20/24 11/21/24 23:59 23:59 23:59 23:59 Intake Total 1350 4313.3 3238 540 Output Total 1250 1925 3150 725 Balance 100 2388.3 88 -185 Meds/Results Medications: Active Medications Generic Name Dose Route Start Last Admin Trade Name Freq PRN Reason Stop Dose Admin Acetaminophen 650 mg 11/18/24 19:45 11/20/24 11:09 Acetaminophen 325 Mg Tablet PO 650 mg Q6H PRN Administration Mild Pain (1-3) or Fever Allopurinol 300 mg 11/19/24 09:00 11/21/24 09:07 Allopurinol 300 Mg Tablet PO 300 mg DAILY MURRAY Administration Aspirin 81 mg 11/18/24 21:00 11/20/24 21:52 Aspirin 81 Mg Enteric Tablet PO 81 mg HS MURRAY Administration Atorvastatin Calcium 20 mg 11/19/24 09:00 11/21/24 09:07 Atorvastatin 20 Mg Tablet PO 20 mg DAILY MURRAY Administration Bismuth Subsalicylate 524 mg 11/19/24 18:04 11/19/24 20:17 Bismuth Subsalicylate 262 Mg Chewable Tablet PO 524 mg Q1H PRN Administration Diarrhea Clopidogrel Bisulfate 75 mg 11/19/24 09:00 11/21/24 09:07 Clopidogrel Bisulfate 75 Mg Tablet PO 75 mg DAILY MURRAY Administration Cyclobenzaprine HCl 10 mg 11/18/24 20:45 Cyclobenzaprine Hcl 10 Mg Tablet PO HS PRN Muscle Spasm Furosemide 20 mg 11/19/24 09:00 11/21/24 09:07 Furosemide 20 Mg Tablet PO 20 mg DAILY MURRAY Administration Ceftriaxone Sodium 2 gm in 100 mls @ 200 mls/hr 11/19/24 12:00 11/20/24 12:40 Rocephin 2 Gm/Ns 100 Ml IVPB Infused Q24H MURRAY Infusion Metronidazole 500 mg in 100 mls @ 100 mls/hr 11/19/24 14:00 11/21/24 05:25 Flagyl 500 Mg/Iso Soln 100 Ml IVPB 100 mls/hr Q8H MURRAY Administration Melatonin 10 mg 11/18/24 21:00 11/20/24 21:52 Melatonin 5 Mg Tablet PO 10 mg QHS MURRAY Administration Metoprolol Succinate 12.5 mg 11/18/24 21:00 11/20/24 21:53 Metoprolol Succinate Ext Rel 12.5 Mg Tabcr PO 12.5 mg HS MURRAY Administration Morphine Sulfate 2 mg 11/18/24 18:22 Morphine Sulfate (*Crx) 2 Mg/Ml Inj IV PUSH Q2H PRN Pain Rated 7-10 Ondansetron HCl 4 mg 11/18/24 18:22 11/20/24 21:51 Ondansetron Inj 4 Mg/2 Ml Vial IV PUSH 4 mg Q4H PRN Administration Nausea Pantoprazole Sodium 40 mg 11/19/24 09:00 11/21/24 09:07 Pantoprazole 40 Mg Tablet PO 40 mg BID MURRAY Administration Zolpidem Tartrate 5 mg 11/18/24 21:00 11/20/24 21:52 Zolpidem Tartrate (*Crx) 5 Mg Tablet PO 5 mg HS MURRAY Administration Radiology Results: ITS Impressions Abdomen/Pelvis CT 11/18/24 16:41 IMPRESSION: 1. Air seen in the wall of the urinary bladder suggestive of emphysematous cystitis. Clinical correlation and follow-up advised. Minimal air is seen anterior to the urinary bladder which may indicate infection or less likely perforation in the area bladder. Clinical correlation and follow-up advised. 2. Bilateral renal cysts. 3. Abdominal wall hernia with bowel content. Nurse Emelia Roberts was notified with the result of the patient at 5:00 PM on November 18, 2024. Labs Labs: Laboratory Results - last 24 hr 11/21/24 05:43 WBC 3.9 L RBC 3.84 L Hgb 11.7 L Hct 37.1 MCV 96.6 MCH 30.5 MCHC 31.5 L RDW 15.9 H Plt Count 155 MPV 9.4 Immature Gran % (Auto) 0.3 Neut % (Auto) 66.6 Lymph % (Auto) 18.3 [place] % (Auto) 9.4 H Eos % (Auto) 4.1 Baso % (Auto) 1.3 H Lymph # (Auto) 0.72 L [place] # (Auto) 0.4 Eos # (Auto) 0.2 Baso # (Auto) 0.1 Abs Immat Gran (auto) 0.01 Absolute Neuts (auto) 2.6 Absolute Nucleated RBC 0.000 Nucleated RBC % 0.0 Sodium 141 Potassium 3.6 Chloride 111 H Carbon Dioxide 24 Anion Gap 6 BUN 21 H Creatinine 1.14 H Estim Creat Clear Calc 39 Estimated GFR 46 L Glucose 80 Calcium 9.8 Magnesium 1.8 Total Bilirubin 0.4 AST 32 ALT 15 Alkaline Phosphatase 102 Total Protein 6.0 L Albumin 3.4 L Quality VTE Prophylaxis VTE prophylaxis: mechanical ordered
[2024-11-21] MEDS: cefTRIAXone 2 GM/NS 100 ML 2 GM/100 ML BAG IVPB (12:20)
[2024-11-21 14:00] VITALS: BP 128/66; PULSE 67; RESP 16; TEMP 36.3; O2SAT 99
[2024-11-21] MEDS: BISMUTH SUBSALICYLATE 262 MG CHEWABLE TABLET 524 MG PO (18:03)
[2024-11-21 21:22] VITALS: BP 154/71; PULSE 69; RESP 18; TEMP 36.8; O2SAT 97
[2024-11-21 21:40] VITALS: PULSE 69
[2024-11-21] MEDS: METOPROLOL SUCCINATE EXT REL 12.5 MG TABCR PO (21:40)
[2024-11-21] MEDS: MELATONIN 5 MG TABLET 10 MG PO (21:41)
[2024-11-21] MEDS: ASPIRIN 81 MG ENTERIC TABLET PO (21:41)
[2024-11-21] MEDS: ZOLPIDEM TARTRATE (*CRX) 5 MG TABLET PO (21:41)
[2024-11-22 05:35] VITALS: BP 147/73; PULSE 66; RESP 18; TEMP 36.9; O2SAT 96
[2024-11-22 06:07] LABS: Basophils Absolute Auto 0.1 K/mm3 (0.0-0.1); Basophils Percent Auto 1.2 % (0.2-1.2); Eosinophils Absolute Auto 0.3 K/mm3 (0-0.3); Eosinophils Percent Auto 5.8 % (0-4.4); Hematocrit 39.6 % (37.0-47.0); Hemoglobin 12.5 g/dL (12.0-15.0); Immature Granulocyte Absolute 0.01 K/mm3 (0.00-0.031); Immature Granulocyte Percent A 0.2 % (0-0.5); Lymphocytes Percent Auto 24.8 % (18.3-44.2); Mean Corpuscular HGB Conc 31.6 g/dl (32-36); Mean Corpuscular Hemoglobin 30.6 pg (26-34); Mean Corpuscular Volume 97.1 fl (80-100); Mean Platelet Volume 9.5 fl (7.4-10.4); Monocytes Absolute Auto 0.4 K/mm3 (0.1-0.6); Monocytes Percent Auto 9.1 % (2.6-8.5); Neutrophils Absolute Auto 2.9 K/mm3 (1.3-6.7); Neutrophils Percent Auto 58.9 % (45.5-73.1); Platelet Count Result 163 k/mm3 (150-375); Red Blood Count 4.08 M/mm3 (4.2-5.4); Red Cell Distribution Width 15.8 % (11.5-14.5); White Blood Count 4.8 K/mm3 (4.5-10.0)
[2024-11-22 06:17] LABS: Alanine Aminotransferase 23 U/L (6-35); Albumin Level 3.8 g/dL (3.5-5.1); Alkaline Phosphatase 103 U/L (38-126); Anion Gap 6 mmol/L (4-12); Aspartate Amino Transferase 45 U/L (14-36); Bilirubin,Total 0.4 mg/dL (0.2-1.3); Blood Urea Nitrogen 19 mg/dL (7-17); Calcium 10.4 mg/dL (8.4-10.2); Carbon Dioxide 27 mmol/L (22-30); Chloride 104 mmol/L (98-107); Estimated CRCL calculation 37 ml/min; Estimated Glomerular Filt Rate 43; Glucose 89 mg/dL (65-110); Magnesium 1.7 mg/dL (1.6-2.3); Potassium 3.6 mmol/L (3.4-5.0); Sodium 137 mmol/L (137-145)
[2024-11-22] MEDS: ATORVASTATIN 20 MG TABLET PO (08:15)
[2024-11-22] MEDS: PANTOPRAZOLE 40 MG TABLET PO ×2 (08:15→16:42)
[2024-11-22] MEDS: FUROSEMIDE 20 MG TABLET PO (08:15)
[2024-11-22] MEDS: allopurinoL 300 MG TABLET PO (08:15)
[2024-11-22] MEDS: CLOPIDOGREL BISULFATE 75 MG TABLET PO (08:15)
[2024-11-22 08:17] VITALS: RESP 18; O2SAT 96
--- NOTE | 2024-11-22 08:52 | P.PNIM_ITS ---
Progress Note: A&P Assessment and Plan (1) Emphysematous cystitis: Code(s): N30.80 - Other cystitis without hematuria Status: Acute Assessment and Plan: * CT abdomen and pelvis with contrast showed: IMPRESSION: 1. Air seen in the wall of the urinary bladder suggestive of emphysematous cystitis. Clinical correlation and follow-up advised. Minimal air is seen anterior to the urinary bladder which may indicate infection or less likely perforation in the area bladder. Clinical correlation and follow-up advised. 2. Bilateral renal cysts. 3. Abdominal wall hernia with bowel content. * Ceftriaxone 2 gram IVPB daily * -->Discussed with [facility] pharm plan to D/C Metronidazole today due to no GI involvement per surg note on 11/19 * Urology consulted, appreciate recommendations. Patient found to have a prior episode of emphysematous cystitis on 12/16/21. * Patient will need a King catheter to gravity drainage until final culture results are available, plan to remove King prior to discharge. * She may benefit from a repeat CT scan prior to removal of the catheter to ensure the emphysematous changes have resolved. * -->Updated pt on the plan to await urine culture and once that is resulted, proceed with repeat CT scan of A/P to make sure cystitis is improving and then followed by D/C of king * -->CT ordered today since UC resulted: 1. Small amount of intraluminal gas and a King catheter within the decompressed bladder with interval resolution of bladder wall gas suggesting improving emphysematous cystitis. * -->Spoke to DENA Bundy with uro about updated CT results and she OK with plan for D/C of king * Pain regimen. * Urine culture yielding Escherichia Coli and Klebsiella pneumoniae * -->Pt overall is much better. Switching from IV ceftriaxone to PO Bactrim today, she will also be D/C with this * Blood cultures no growth to date. (2) Hypertension: Code(s): I10 - Essential (primary) hypertension Status: Acute Assessment and Plan: * Blood pressure stable at 111/61. * Lasix 20 mg PO daily and Metoprolol Succinate 12.5 mg PO HS. (3) Coronary artery disease: Qualifiers: Associated angina: without angina Coronary Disease-Associated Artery/Lesion type: unspecified vessel or lesion type [place] vs. transplanted heart: [place] heart Qualified Code(s): I25.10 - Atherosclerotic heart disease of [place] coronary artery without angina pectoris Code(s): I25.10 - Atherosclerotic heart disease of [place] coronary artery without angina pectoris Status: Chronic Assessment and Plan: * Clopidogrel Bisulfate 75 mg PO daily, ECASA 81 mg PO daily, Metoprolol Succinate 12.5 mg PO HS, and Atorvastatin 20 mg PO daily. * Denies any sx upon examination (4) Chronic kidney disease, stage 3b: Code(s): N18.32 - Chronic kidney disease, stage 3b Status: Acute Assessment and Plan: * BUN 19, Creatinine 1.22, & GFR 43. * Continue to trend labs (5) Ventral hernia: Code(s): K43.9 - Ventral hernia without obstruction or gangrene Status: Acute Assessment and Plan: * CT abdomen and pelvis showed: Abdominal wall hernia with bowel loops and bowel content noted in hernia. * Hernia is reducible. * Surgery consulted. Per surgery there is no indication for emergent surgical management at this time. We would recommend to continue treating her acute urinary issues and she can follow-up as an outpatient once her infection has been treated to discuss options for surgical repair. I will order an abdominal binder that she can wear for support in the interim. She should avoid heavy lifting or strenuous activity that may aggravate her symptoms related to the hernia. (6) Gastroesophageal reflux: Code(s): K21.9 - Gastro-esophageal reflux disease without esophagitis Status: Acute Assessment and Plan: * Pantoprazole 40 mg PO BID. (7) Hypokalemia: Code(s): E87.6 - Hypokalemia Status: Acute Assessment and Plan: * Potassium 3.6. * Potassium Chloride 20 meq PO x1. * Monitor level. Plan D/C king on 11/22 and switched to PO abx, if stable overnight, D/C on 11/23 Subjective Date/time seen: 11/22/24 1025 are Interval history: Pt resting comfortably in chair, reporting no discomfort especially with wearing abd binder. Updated her on the plan to proceed with repeat CT scan of A/P to make sure cystitis is improving and then followed by D/C of christine. D/C Flagyl today with help from ID pharm. UC resulted today, switching from ceftriaxone IV to Bactrim PO. Pt very pleasant and agreeable with the plan. Review of Systems Review of Systems: 12 systems were reviewed and are negativ e except for as per HPI. All systems reviewed & are unremarkable except as noted in HPI and below Exam Const: General: comfortable and no acute distress HENMT: Face/Nose/Sinus: Normal nares present Mouth: Yes moist mucous membranes Eyes: General: appearance normal, both eyes and all related structures Sclera: sclerae normal Neck: Neck: supple and no JVD Resp: Effort & Inspection: normal respiratory effort Auscultation: clear to auscultation bilaterally Cardio: Rate: regular rate Rhythm: regular rhythm GI: Inspection: non-distended Auscultation: normal bowel sounds Other: Large ventral hernia which is reducible. Denies CVA ttp. Urinary Catheter: Urinary Catheter: patent and draining (charlette ) Skin: General skin exam: normal color and no rashes or lesions noted Wounds: no wounds Neuro: Speech: normal speech Motor exam (neuro): Normal motor muscle tone present throughout Sensory Exam: normal sensation Extrem: General: normal to inspection and no pedal edema Psych: Mental Status: mental status grossly normal Affect: normal affect Objective Data Vital Signs Vital Signs: Vital Signs - 24 hr 11/21/24 09:07 11/21/24 14:00 11/21/24 21:22 Temperature 97.3 F L 98.2 F Pulse Rate 67 69 Respiratory Rate 18 16 18 Blood Pressure 128/66 154/71 H Pulse Oximetry 92 99 97 Oxygen Delivery Room Air 11/21/24 21:35 11/21/24 21:40 11/22/24 05:35 Temperature 98.4 F Pulse Rate 69 66 Respiratory Rate 18 Blood Pressure 147/73 H Pulse Oximetry 96 Oxygen Delivery Room Air 11/22/24 08:17 Temperature Pulse Rate Respiratory Rate 18 Blood Pressure Pulse Oximetry 96 Oxygen Delivery Room Air Intake/Output Intake/Output: Intake & Output 11/19/24 11/20/24 11/21/24 11/22/24 23:59 23:59 23:59 23:59 Intake Total 4313.3 3238 1000 120 Output Total 1925 3150 2775 350 Balance 2388.3 88 -1775 -230 Meds/Results Medications: Active Medications Generic Name Dose Route Start Last Admin Trade Name Freq PRN Reason Stop Dose Admin Acetaminophen 650 mg 11/18/24 19:45 11/20/24 11:09 Acetaminophen 325 Mg Tablet PO 650 mg Q6H PRN Administration Mild Pain (1-3) or Fever Allopurinol 300 mg 11/19/24 09:00 11/22/24 08:15 Allopurinol 300 Mg Tablet PO 300 mg DAILY MURRAY Administration Aspirin 81 mg 11/18/24 21:00 11/21/24 21:41 Aspirin 81 Mg Enteric Tablet PO 81 mg HS MURRAY Administration Atorvastatin Calcium 20 mg 11/19/24 09:00 11/22/24 08:15 Atorvastatin 20 Mg Tablet PO 20 mg DAILY MURRAY Administration Bismuth Subsalicylate 524 mg 11/19/24 18:04 11/21/24 18:03 Bismuth Subsalicylate 262 Mg Chewable Tablet PO 524 mg Q1H PRN Administration Diarrhea Clopidogrel Bisulfate 75 mg 11/19/24 09:00 11/22/24 08:15 Clopidogrel Bisulfate 75 Mg Tablet PO 75 mg DAILY MURRAY Administration Cyclobenzaprine HCl 10 mg 11/18/24 20:45 Cyclobenzaprine Hcl 10 Mg Tablet PO HS PRN Muscle Spasm Furosemide 20 mg 11/19/24 09:00 11/22/24 08:15 Furosemide 20 Mg Tablet PO 20 mg DAILY MURRAY Administration Ceftriaxone Sodium 2 gm in 100 mls @ 200 mls/hr 11/19/24 12:00 11/21/24 12:50 Rocephin 2 Gm/Ns 100 Ml IVPB Infused Q24H [facility] Infusion Melatonin 10 mg 11/18/24 21:00 11/21/24 21:41 Melatonin 5 Mg Tablet PO 10 mg QHS MURRAY Administration Metoprolol Succinate 12.5 mg 11/18/24 21:00 11/21/24 21:40 Metoprolol Succinate Ext Rel 12.5 Mg Tabcr PO 12.5 mg HS MURRAY Administration Morphine Sulfate 2 mg 11/18/24 18:22 Morphine Sulfate (*Crx) 2 Mg/Ml Inj IV PUSH Q2H PRN Pain Rated 7-10 Ondansetron HCl 4 mg 11/18/24 18:22 11/20/24 21:51 Ondansetron Inj 4 Mg/2 Ml Vial IV PUSH 4 mg Q4H PRN Administration Nausea Pantoprazole Sodium 40 mg 11/19/24 09:00 11/22/24 08:15 Pantoprazole 40 Mg Tablet PO 40 mg BID MURRAY Administration Zolpidem Tartrate 5 mg 11/18/24 21:00 11/21/24 21:41 Zolpidem Tartrate (*Crx) 5 Mg Tablet PO 5 mg HS MURRAY Administration Radiology Results: ITS Impressions Abdomen/Pelvis CT 11/18/24 16:41 IMPRESSION: 1. Air seen in the wall of the urinary bladder suggestive of emphysematous cystitis. Clinical correlation and follow-up advised. Minimal air is seen anterior to the urinary bladder which may indicate infection or less likely perforation in the area bladder. Clinical correlation and follow-up advised. 2. Bilateral renal cysts. 3. Abdominal wall hernia with bowel content. Nurse Emelia Roberts was notified with the result of the patient at 5:00 PM on November 18, 2024. Labs Labs: Laboratory Results - last 24 hr 11/22/24 06:00 WBC 4.8 RBC 4.08 L Hgb 12.5 Hct 39.6 MCV 97.1 MCH 30.6 MCHC 31.6 L RDW 15.8 H Plt Count 163 MPV 9.5 Immature Gran % (Auto) 0.2 Neut % (Auto) 58.9 Lymph % (Auto) 24.8 [place] % (Auto) 9.1 H Eos % (Auto) 5.8 H Baso % (Auto) 1.2 Lymph # (Auto) 1.20 [place] # (Auto) 0.4 Eos # (Auto) 0.3 Baso # (Auto) 0.1 Abs Immat Gran (auto) 0.01 Absolute Neuts (auto) 2.9 Absolute Nucleated RBC 0.000 Nucleated RBC % 0.0 Sodium 137 Potassium 3.6 Chloride 104 Carbon Dioxide 27 Anion Gap 6 BUN 19 H Creatinine 1.22 H Estim Creat Clear Calc 37 Estimated GFR 43 L Glucose 89 Calcium 10.4 H Magnesium 1.7 Total Bilirubin 0.4 AST 45 H ALT 23 Alkaline Phosphatase 103 Total Protein 6.0 L Albumin 3.8 Quality VTE Prophylaxis VTE prophylaxis: mechanical ordered
[2024-11-22] MEDS: SULFAMETHOXAZOLE/TRIMETHOPRIM 800/160 MG DS TABLET 1 TAB PO ×2 (11:33→21:30)
[2024-11-22 14:00] VITALS: BP 111/61; PULSE 71; RESP 16; TEMP 36.1; O2SAT 99
--- NOTE | 2024-11-22 15:47 | WPDUROPN2 ---
Progress Note: A&P Assessment and Plan (1) Emphysematous cystitis: Code(s): N30.80 - Other cystitis without hematuria Status: Acute Assessment and Plan: - Present on admission Plan 74yoF with hx recurrent UTI admitted 11/18/24 with suspected UTI (emphysematous cystitis, likely 2/2 gas-forming bacteria such as E.Coli or Klebsiella) - Urine culture completed. agree with culture driven antibiotic therapy per primary service. - discontinue king for void trial. - CT today showed interval resolution of bladder wall gas suggesting improving emphysematous cystitis. - Renal function near baseline, Cr 1.2 (Hx CKD) - No plan for inpatient surgical intervention Plan to follow-up in office with [facility] in 2-3 weeks. Last office visit was 01/2023. Subjective Subjective Date/Time Seen: 11/22/24 15:47 Interval history: Pt resting comfortably in chair, reporting no discomfort especially with wearing abd binder. CT today showed interval resolution of bladder wall gas suggesting improving emphysematous cystitis. UC resulted today and primary service is switching from ceftriaxone IV to Bactrim PO. Pt very pleasant and agreeable with the plan. Review of Systems Review of Systems: All systems reviewed & are unremarkable except as noted in HPI and below Exam Const: General: cooperative, healthy appearing, comfortable and no acute distress Orientation/consciousness: oriented to person, oriented to place and oriented to time HENMT: Head: normal to inspection Face/Nose/Sinus: Normal nares present Eyes: General: appearance normal, both eyes and all related structures Resp: Effort & Inspection: normal respiratory effort and able to speak in complete sentences Urinary Catheter: Urinary Catheter: patent and draining Skin: General skin exam: normal color and no rashes or lesions noted Neuro: General: oriented to person, oriented to place and oriented to time Speech: normal speech Psych: Affect: normal affect Objective Data Vital Signs Vital Signs: Vital Signs - 24 hr 11/21/24 21:22 11/21/24 21:35 11/21/24 21:40 Temperature 98.2 F Pulse Rate 69 69 Respiratory Rate 18 Blood Pressure 154/71 H Pulse Oximetry 97 Oxygen Delivery Room Air 11/22/24 05:35 11/22/24 08:17 11/22/24 14:00 Temperature 98.4 F 97 F L Pulse Rate 66 71 Respiratory Rate 18 18 16 Blood Pressure 147/73 H 111/61 Pulse Oximetry 96 96 99 Oxygen Delivery Room Air Intake/Output Intake/Output: Intake & Output 11/19/24 11/20/24 11/21/24 11/22/24 23:59 23:59 23:59 23:59 Intake Total 4313.3 3238 1000 240 Output Total 1925 3150 2775 1550 Balance 2388.3 12 -0170 -0699 Meds/Results Medications: Active Medications Generic Name Dose Route Start Last Admin Trade Name Freq PRN Reason Stop Dose Admin Acetaminophen 650 mg 11/18/24 19:45 11/20/24 11:09 Acetaminophen 325 Mg Tablet PO 650 mg Q6H PRN Administration Mild Pain (1-3) or Fever Allopurinol 300 mg 11/19/24 09:00 11/22/24 08:15 Allopurinol 300 Mg Tablet PO 300 mg DAILY MURRAY Administration Aspirin 81 mg 11/18/24 21:00 11/21/24 21:41 Aspirin 81 Mg Enteric Tablet PO 81 mg HS MURRAY Administration Atorvastatin Calcium 20 mg 11/19/24 09:00 11/22/24 08:15 Atorvastatin 20 Mg Tablet PO 20 mg DAILY MURRAY Administration Bismuth Subsalicylate 524 mg 11/19/24 18:04 11/21/24 18:03 Bismuth Subsalicylate 262 Mg Chewable Tablet PO 524 mg Q1H PRN Administration Diarrhea Clopidogrel Bisulfate 75 mg 11/19/24 09:00 11/22/24 08:15 Clopidogrel Bisulfate 75 Mg Tablet PO 75 mg DAILY MURRAY Administration Cyclobenzaprine HCl 10 mg 11/18/24 20:45 Cyclobenzaprine Hcl 10 Mg Tablet PO HS PRN Muscle Spasm Furosemide 20 mg 11/19/24 09:00 11/22/24 08:15 Furosemide 20 Mg Tablet PO 20 mg DAILY MURRAY Administration Melatonin 10 mg 11/18/24 21:00 11/21/24 21:41 Melatonin 5 Mg Tablet PO 10 mg QHS MURRAY Administration Metoprolol Succinate 12.5 mg 11/18/24 21:00 11/21/24 21:40 Metoprolol Succinate Ext Rel 12.5 Mg Tabcr PO 12.5 mg HS MURRAY Administration Morphine Sulfate 2 mg 11/18/24 18:22 Morphine Sulfate (*Crx) 2 Mg/Ml Inj IV PUSH Q2H PRN Pain Rated 7-10 Ondansetron HCl 4 mg 11/18/24 18:22 11/20/24 21:51 Ondansetron Inj 4 Mg/2 Ml Vial IV PUSH 4 mg Q4H PRN Administration Nausea Pantoprazole Sodium 40 mg 11/19/24 09:00 11/22/24 08:15 Pantoprazole 40 Mg Tablet PO 40 mg BID MURRAY Administration Trimethoprim/Sulfamethoxazole 1 tab 11/22/24 12:00 11/22/24 11:33 Sulfamethoxazole/Trimethoprim 800/160 Mg Ds Tablet PO 11/28/24 21:01 1 tab Q12HR MURRAY Administration Zolpidem Tartrate 5 mg 11/18/24 21:00 11/21/24 21:41 Zolpidem Tartrate (*Crx) 5 Mg Tablet PO 5 mg HS MURRAY Administration Radiology Results: ITS Impressions Abdomen/Pelvis CT 11/22/24 11:34 IMPRESSION: 1. Small amount of intraluminal gas and a King catheter within the decompressed bladder with interval resolution of bladder wall gas suggesting improving emphysematous cystitis. 2. Large ventral hernia containing nonobstructed large and small bowel. 3. Nonspecific diarrhea. Labs Labs: Laboratory Results - last 24 hr 11/22/24 06:00 WBC 4.8 RBC 4.08 L Hgb 12.5 Hct 39.6 MCV 97.1 MCH 30.6 MCHC 31.6 L RDW 15.8 H Plt Count 163 MPV 9.5 Immature Gran % (Auto) 0.2 Neut % (Auto) 58.9 Lymph % (Auto) 24.8 [place] % (Auto) 9.1 H Eos % (Auto) 5.8 H Baso % (Auto) 1.2 Lymph # (Auto) 1.20 [place] # (Auto) 0.4 Eos # (Auto) 0.3 Baso # (Auto) 0.1 Abs Immat Gran (auto) 0.01 Absolute Neuts (auto) 2.9 Absolute Nucleated RBC 0.000 Nucleated RBC % 0.0 Sodium 137 Potassium 3.6 Chloride 104 Carbon Dioxide 27 Anion Gap 6 BUN 19 H Creatinine 1.22 H Estim Creat Clear Calc 37 Estimated GFR 43 L Glucose 89 Calcium 10.4 H Magnesium 1.7 Total Bilirubin 0.4 AST 45 H ALT 23 Alkaline Phosphatase 103 Total Protein 6.0 L Albumin 3.8
[2024-11-22 20:04] VITALS: BP 137/87; PULSE 69; RESP 18; TEMP 36.6; O2SAT 100
[2024-11-22 21:30] VITALS: PULSE 69
[2024-11-22] MEDS: ZOLPIDEM TARTRATE (*CRX) 5 MG TABLET PO (21:30)
[2024-11-22] MEDS: ASPIRIN 81 MG ENTERIC TABLET PO (21:30)
[2024-11-22] MEDS: MELATONIN 5 MG TABLET 10 MG PO (21:30)
[2024-11-22] MEDS: METOPROLOL SUCCINATE EXT REL 12.5 MG TABCR PO (21:30)
[2024-11-23 04:39] VITALS: BP 108/66; PULSE 71; RESP 17; TEMP 36.6; O2SAT 95
[2024-11-23 05:18] LABS: Basophils Absolute Auto 0.1 K/mm3 (0.0-0.1); Basophils Percent Auto 1.3 % (0.2-1.2); Eosinophils Absolute Auto 0.2 K/mm3 (0-0.3); Hematocrit 40.4 % (37.0-47.0); Hemoglobin 12.7 g/dL (12.0-15.0); Immature Granulocyte Absolute 0.02 K/mm3 (0.00-0.031); Immature Granulocyte Percent A 0.4 % (0-0.5); Lymphocytes Absolute Auto 0.98 K/mm3 (0.9-3.2); Lymphocytes Percent Auto 21.4 % (18.3-44.2); Mean Corpuscular HGB Conc 31.4 g/dl (32-36); Mean Corpuscular Hemoglobin 30.5 pg (26-34); Mean Corpuscular Volume 96.9 fl (80-100); Mean Platelet Volume 9.9 fl (7.4-10.4); Monocytes Absolute Auto 0.4 K/mm3 (0.1-0.6); Monocytes Percent Auto 8.1 % (2.6-8.5); Neutrophils Absolute Auto 2.9 K/mm3 (1.3-6.7); Neutrophils Percent Auto 63.8 % (45.5-73.1); Platelet Count Result 176 k/mm3 (150-375); Red Blood Count 4.17 M/mm3 (4.2-5.4); Red Cell Distribution Width 15.6 % (11.5-14.5); White Blood Count 4.6 K/mm3 (4.5-10.0)
[2024-11-23 05:32] LABS: Alanine Aminotransferase 33 U/L (6-35); Albumin Level 3.8 g/dL (3.5-5.1); Alkaline Phosphatase 107 U/L (38-126); Anion Gap 10 mmol/L (4-12); Aspartate Amino Transferase 56 U/L (14-36); Bilirubin,Total 0.3 mg/dL (0.2-1.3); Blood Urea Nitrogen 20 mg/dL (7-17); Calcium 10.2 mg/dL (8.4-10.2); Carbon Dioxide 23 mmol/L (22-30); Chloride 104 mmol/L (98-107); Estimated CRCL calculation 30 ml/min; Estimated Glomerular Filt Rate 33; Glucose 86 mg/dL (65-110); Magnesium 1.7 mg/dL (1.6-2.3); Potassium 3.2 mmol/L (3.4-5.0); Sodium 137 mmol/L (137-145)
[2024-11-23] MEDS: CLOPIDOGREL BISULFATE 75 MG TABLET PO (08:22)
[2024-11-23] MEDS: ATORVASTATIN 20 MG TABLET PO (08:22)
[2024-11-23] MEDS: allopurinoL 300 MG TABLET PO (08:22)
[2024-11-23] MEDS: SULFAMETHOXAZOLE/TRIMETHOPRIM 800/160 MG DS TABLET 1 TAB PO (08:22)
[2024-11-23] MEDS: FUROSEMIDE 20 MG TABLET PO (08:22)
[2024-11-23] MEDS: PANTOPRAZOLE 40 MG TABLET PO (08:22)
[2024-11-23 08:25] VITALS: O2SAT 97
--- NOTE | 2024-11-23 10:19 | P.DS_ITS ---
DS: Admitting Diagnosis Discharge Date 11/23/2024 Admitting Diagnosis Emphysematous cystitis DS: Discharge Diagnosis Discharge Diagnosis (1) Emphysematous cystitis: Code(s): N30.80 - Other cystitis without hematuria Status: Acute Assessment and Plan: * CT abdomen and pelvis with contrast showed: IMPRESSION: 1. Air seen in the wall of the urinary bladder suggestive of emphysematous cystitis. Clinical correlation and follow-up advised. Minimal air is seen anterior to the urinary bladder which may indicate infection or less likely perforation in the area bladder. Clinical correlation and follow-up advised. 2. Bilateral renal cysts. 3. Abdominal wall hernia with bowel content. * Ceftriaxone 2 gram IVPB daily * -->Discussed with ID pharm plan to D/C Metronidazole today due to no GI involvement per surg note on 11/19 * Urology consulted, appreciate recommendations. Patient found to have a prior episode of emphysematous cystitis on 12/16/21. * Patient will need a Kign catheter to gravity drainage until final culture results are available, plan to remove King prior to discharge. * She may benefit from a repeat CT scan prior to removal of the catheter to ensure the emphysematous changes have resolved. * -->Updated pt on the plan to await urine culture and once that is resulted, proceed with repeat CT scan of A/P to make sure cystitis is improving and then followed by D/C of king * -->CT ordered today since UC resulted: 1. Small amount of intraluminal gas and a King catheter within the decompressed bladder with interval resolution of bladder wall gas suggesting improving emphysematous cystitis. * -->Spoke to DENA Bundy with uro about updated CT results and she OK with plan for D/C of king * Pain regimen. * Urine culture yielding Escherichia Coli and Klebsiella pneumoniae * -->Pt overall is much better. Switched from IV ceftriaxone to PO Bactrim 11/22, she will also be D/C with this * Blood cultures no growth to date. (2) Hypertension: Code(s): I10 - Essential (primary) hypertension Status: Acute Assessment and Plan: * Blood pressure stable at 108/66. * Continue Lasix 20 mg PO daily and Metoprolol Succinate 12.5 mg PO HS at home (3) Coronary artery disease: Qualifiers: Coronary Disease-Associated Artery/Lesion type: unspecified vessel or lesion type Stebbins vs. transplanted heart: kar[place] heart Associated angina: without angina Qualified Code(s): I25.10 - Atherosclerotic heart disease of [place] coronary artery without angina pectoris Code(s): I25.10 - Atherosclerotic heart disease of [place] coronary artery without angina pectoris Status: Chronic Assessment and Plan: * Clopidogrel Bisulfate 75 mg PO daily, ECASA 81 mg PO daily, Metoprolol Succinate 12.5 mg PO HS, and Atorvastatin 20 mg PO daily. * Denies any sx upon examination (4) Chronic kidney disease, stage 3b: Code(s): N18.32 - Chronic kidney disease, stage 3b Status: Acute Assessment and Plan: * BUN 20, Creatinine 1.53, & GFR 33. * Continue to trend labs with PCP (5) Ventral hernia: Code(s): K43.9 - Ventral hernia without obstruction or gangrene Status: Acute Assessment and Plan: * CT abdomen and pelvis showed: Abdominal wall hernia with bowel loops and bowel content noted in hernia. * Hernia is reducible. * Surgery consulted. Per surgery there is no indication for emergent surgical management at this time. We would recommend to continue treating her acute urinary issues and she can follow-up as an outpatient once her infection has been treated to discuss options for surgical repair. I will order an abdominal binder that she can wear for support in the interim. She should avoid heavy lifting or strenuous activity that may aggravate her symptoms related to the hernia. * Plans to f/u with Dr. Cartwright's office (6) Gastroesophageal reflux: Code(s): K21.9 - Gastro-esophageal reflux disease without esophagitis Status: Acute Assessment and Plan: * Pantoprazole 40 mg PO BID. (7) Hypokalemia: Code(s): E87.6 - Hypokalemia Status: Acute Assessment and Plan: * Potassium 3.2 today, plan to continue with home K supplement. * Monitor level via PCP. Plan D/C king on 11/22 and switched to PO abx, if stable overnight, D/C on 11/23 DS: Summary Hospital Course Reason for hospitalization: Emphysematous cystitis Hospital Course: Pt is a 74-year-old female when history of complicated urinary tract infections including E coli with some ESBL activity and Enterococcus, urosepsis, hypertension, hyperlipidemia, coronary artery disease, chronic kidney disease, and colon cancer status post resection who presented to the emergency department with complaints of right-sided flank pain, dysuria, hematuria. She felt fine when she got up the morning of 11/18 and went to spiritism with her . After the service she was feeling a bit woozy so they went out to breakfast. Shortly thereafter she developed sharp and shooting pain in the right side of her back in into the flank as well as hematuria and dysuria. Given her history she decided to come and to the hospital immediately for evaluation. She denies fever, chills, sweats, chest pain, shortness of breath, syncope, near syncope, nausea, vomiting, and diarrhea. At the time my evaluation she is resting comfortably. She is frustrated that she has another urine infection as she is diligent about keeping clean to avoid infection. She does mention that she has some episodes of incontinence, occasional bowel incontinence as well since her colectomy). In the ED: She was afebrile on arrival with stable vital signs. Labs are significant for WBC count of 5.9, BUN 41, creatinine 1.46, lactic acid 1.0. Urinalysis was positive for 2+ protein, 3+ blood, 2+ leukocyte esterase, greater than 100 RBC, 51 to 100 WBC, and 4+ bacteria. CT of the abdomen and pelvis showed findings of emphysematous cystitis and bilateral renal cysts. She was given a dose of vancomycin, meropenem, and a L of normal saline and she is being admitted in this setting for further treatment. Pt with hx of episode of Emphysematous cystitis in 2021 which is why she was admitted for during this admission, per CT. King was placed as well as IV abx (transitioned to oral) and repeat CT showing improving Emphysematous cystitis. King was removed on 11/22 per uro order and pt has remained stable. Pt no longer with pain and states that she is feeling back to her baseline. She denies any sx and is stable to D/C home on remaining course of oral abx. Status at Discharge Cognitive/behavioral status at discharge: Stable Functional status at discharge: independent ambulation Overall status at discharge: patient is back to baseline Time Spent with Patient Time attestation: Total time spent providing and/or coordinating discharge services: Exam Const: General: comfortable and no acute distress HENMT: Face/Nose/Sinus: Normal nares present Mouth: Yes moist mucous membranes Eyes: General: appearance normal, both eyes and all related structures Sclera: sclerae normal Neck: Neck: supple and no JVD Resp: Effort & Inspection: normal respiratory effort Auscultation: clear to auscultation bilaterally Cardio: Rate: regular rate Rhythm: regular rhythm GI: Inspection: non-distended Auscultation: normal bowel sounds Other: Large ventral hernia which is reducible. Denies CVA ttp. Urinary Catheter: Urinary Catheter: patent and draining (charlette ) Skin: General skin exam: normal color and no rashes or lesions noted Wounds: no wounds Neuro: Speech: normal speech Motor exam (neuro): Normal motor muscle tone present throughout Sensory Exam: normal sensation Extrem: General: normal to inspection and no pedal edema Psych: Mental Status: mental status grossly normal Affect: normal affect DS: Data Data Completed and Pending Labs on day of discharge: Labs from last 24 hours 11/23/24 05:02 WBC 4.6 RBC 4.17 L Hgb 12.7 Hct 40.4 MCV 96.9 MCH 30.5 MCHC 31.4 L RDW 15.6 H Plt Count 176 MPV 9.9 Immature Gran % (Auto) 0.4 Neut % (Auto) 63.8 Lymph % (Auto) 21.4 [place] % (Auto) 8.1 Eos % (Auto) 5.0 H Baso % (Auto) 1.3 H Lymph # (Auto) 0.98 [place] # (Auto) 0.4 Eos # (Auto) 0.2 Baso # (Auto) 0.1 Abs Immat Gran (auto) 0.02 Absolute Neuts (auto) 2.9 Absolute Nucleated RBC 0.000 Nucleated RBC % 0.0 Sodium 137 Potassium 3.2 L Chloride 104 Carbon Dioxide 23 Anion Gap 10 BUN 20 H Creatinine 1.53 H Estim Creat Clear Calc 30 Estimated GFR 33 L Glucose 86 Calcium 10.2 Magnesium 1.7 Total Bilirubin 0.3 AST 56 H ALT 33 Alkaline Phosphatase 107 Total Protein 6.0 L Albumin 3.8 Preliminary micro results at discharge 11/18/24 15:43 Blood Culture - Preliminary Blood 11/18/24 15:43 Blood Culture - Preliminary Blood Discharge Plan Discharge Attending physician on discharge: Hollie Foster Consulting providers: Ger Victor Discharging Clinician: Lutman,Hollie Anticipated Discharge Date/Time: 11/23/24 12:00 Patient Disposition: Home Activity: may shower and as tolerated Diet: heart healthy Discharge Instructions: 1. I am sending you home with an antibiotic called Bactrim to make sure the infection resolves completely. Start this medication tonight (11/23) and then twice daily (AM/PM) tomorrow until gone. 2. Continue to take your potassium supplement at home and follow-up with your primary care provider for repeat lab work as your potassium level inpatient was mildly low. General Surgery d/c instructions: * May use the abdominal binder to help reduce symptoms or help prevent issues. Wear when up and doing any activity. May remove the binder when at rest or for sleep. * Call Dr. Cartwright's office to schedule an appointment to further discuss surgical options once your infection has completely been treated. * If you develop abdominal pain or a hard/firm bulge at your hernia that does not resolve with manually reducing (or pushing it in) at home, then go directly to the ER. Continue to check your blood pressure and blood sugar at home if applicable. Keep your scheduled appts with your primary care provider and any specialist that you may see. Return to the emergency department if you develop sudden shortness of breath, chest pain, a fever of greater than 101.5, or nausea, vomiting, abd pain, or diarrhea that does not go away. Follow-up with your primary care provider within 1-2 weeks, they will want to be updated on your inpatient stay in the hospital. Thank you for choosing [facility] for your healthcare needs. Patient Instructions: Antibiotic Form, Clopidogrel (By mouth), Heart Failure (DC), Pain Management (DC), Urinary Tract Infection in Older Adults (GEN) Patient Language: Yemeni Stand Alone Forms: General Discharge Information Follow-up/Referrals: Fry,Devyn Roberts MD [Primary Care Provider] - 2 Weeks Delmy Benítez PA-C [Physician Plant Scientist] - 2 Weeks (Call for appointment ) Barrie Cartwright DO [Physician] - Call for Appointment Discharge Medications: New sulfamethoxazole-trimethoprim 800-160 mg Tablet 1 tab PO Q12HR Qty: 11 0RF Continued atorvastatin 20 mg tablet 20 mg PO DAILY allopurinol 300 mg tablet 300 mg PO DAILY melatonin 10 mg capsule 10 mg PO QHS cyclobenzaprine 10 mg tablet 10 mg PO HS potassium citrate 99 mg capsule 99 mg PO DAILY Tart Ruffin Extract 1,000 mg capsule 1,000 mg PO DAILY Ultra CoQ10 75 mg capsule 75 mg PO DAILY aspirin 81 mg tablet,delayed release (DR/EC) 81 mg PO HS clopidogrel 75 mg tablet 75 mg PO DAILY omeprazole 40 mg capsule,delayed release(DR/EC) 40 mg PO DAILY furosemide [Lasix] 20 mg tablet 20 mg PO DAILY zolpidem 5 mg tablet 5 mg PO HS metoprolol succinate 25 mg tablet extended release 24 hr 12.5 mg PO HS Date of admission: 11/19/24 09:49 Primary Care Provider: Lisandra,Devyn Roberts Admitting Provider: Aquilino Alas Attending physician on admission: Hollie Fsoter Condition: Stable Quality VTE Prophylaxis VTE prophylaxis: mechanical ordered Hospitalist MIPS Heart Failure (Exclusion) Patient has history of Heart Transplant or Left Ventricular Assistive Device?: No IF YES, STOP HERE Heart Failure (Qualifier) Patient has current or prior documentation of LVEF less than or equal to 40%, or mod/servere depressed LVSF?: No IF NO, STOP HERE
== END 2024-11-23 12:00 | disposition home or self-care (01) | DRG 690 ==
LOC: ANHED 18:21 → ANH2MED 18:59
PROVIDERS: Nurse Practitioner Family; Physician Assistant; Admitting Provider General Practice; Emergency Provider Registered Nurse; PCP Family Medicine
DX: N30.81 Other cystitis with hematuria (principal); I13.0 Hypertensive heart and chronic kidney disease with heart failure and stage 1 through stage 4 chronic kidney disease, or unspecified chronic kidney disease; I25.10 Atherosclerotic heart disease of native coronary artery without angina pectoris; I50.9 Heart failure, unspecified; N18.32 Chronic kidney disease, stage 3b; E87.6 Hypokalemia; E78.5 Hyperlipidemia, unspecified; K43.2 Incisional hernia without obstruction or gangrene; K21.9 Gastro-esophageal reflux disease without esophagitis; K58.0 Irritable bowel syndrome with diarrhea; B96.1 Klebsiella pneumoniae [K. pneumoniae] as the cause of diseases classified elsewhere; B96.20 Unspecified Escherichia coli [E. coli] as the cause of diseases classified elsewhere; I25.2 Old myocardial infarction; Z86.73 Personal history of transient ischemic attack (TIA), and cerebral infarction without residual deficits; Z85.038 Personal history of other malignant neoplasm of large intestine; Z79.82 Long term (current) use of aspirin; Z79.02 Long term (current) use of antithrombotics/antiplatelets; Z95.5 Presence of coronary angioplasty implant and graft; Z87.891 Personal history of nicotine dependence
CPT/HCPCS: 36415; 74177; 80048; 80053; 81001; 83605; 83735; 84484; 85025; 85027; 85610; 85730; 86140; 87040; 87086; 87186; 93005; 96361; 96365; 96367; 96375; 96376; 99285; A9270; G0378; J0696; J1836; J2185; J2405; J3370; J3475; J7030; Q9967

== ENCOUNTER 2024-12-05 07:32 | Outpatient (CLI) | payer MEDICARE, OTHER, SELFPAY ==
--- NOTE | ~2024-12-05 | MM_ITS ---
EXAMINATION: MM screening kaylen BI w abdifatah HISTORY: Screening TECHNIQUE: Craniocaudal and mediolateral oblique 3-D tomosynthesis images were obtained and synthetic 2-D images were generated. CAD analysis was submitted and interpreted. COMPARISON: Comparison to multiple prior studies sequentially, with oldest reviewed study dated 11/11. BREAST PARENCHYMAL COMPOSITION: Not Dense: The breasts are almost entirely fatty. FINDINGS: There is no evidence of suspicious mass, calcification, or architectural distortion to sugg est malignancy in either breast. There has been no suspicious interval change. IMPRESSION: 1. No mammographic evidence of malignancy. 2. Recommend routine screening mammography in one year. BI-RADS Category 1: Negative Reviewed, dictated and finalized at location []
--- OUTSIDE RECORDS SUMMARY | 2024-12-05 07:37 | XMS_ITS | Patient Health Record ---
Author Organization [facility] Address [address] [place] [address] YENNY Najera [address] Care Team Providers Care Plug Drill Operator Name Role Phone DARRICK BAZAN ASHLEY Unavailable [...] (G57.91) Active confirmed Mononeuropathy of lower limb (107244414) Problem Spondylolisthesis , lumbar region (M43.16) Active confirmed Acquired spondylolisthesis (073697691) Problem Spondylosis without myelopathy or radiculopathy, lumbar region (M47.816) Active confirmed Lumbosacral spondylosis without myelopathy (31610518) Problem Spondylosis without myelopathy or radiculopathy, lumbosacral region (M47.817) Active confirmed Lumbosacral spondylosis without myelopathy (disorder) (81101827) Problem Other intervertebral disc degeneration, lumbar region (M51.36) Active confirmed Degeneration of lumbar intervertebral disc (65750828) Problem Radiculopathy, lumbar region (M54.16) Active confirmed Lumbar radiculopathy (774466187) Problem Radiculopathy, lumbosacral region (M54.17) Active confirmed Lumbosacral radiculopathy (9856489) Problem Sciatica, unspecified side (M54.30) Active confirmed Sciatica (82484668) Problem Sciatica, right side (M54.31) Active confirmed Right side sci atica (294772782789253) Problem Sciatica, left side (M54.32) Active confirmed Left side scia eleonora (156101790098834) Problem Osseous stenosis of neural canal of lumbar region (M99.33) Active confirmed Spinal stenosis of lumbar region (03545574) Problem Osseous and subluxation stenosis of intervertebral foramina of lumbar region (M99.63) Active confirmed Spinal stenosis of lumbar region (32169157) Problem terminal makeup operator (current) use of anticoagulants (Z79.01) Active confirmed Long-term curre nt use of anticoagulant (244669384) Problem Spinal stenosis, lumbar region with neurogenic 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) Active confirmed Neurogenic claudication (818324361) PLAN OF TREATMENT No Information Insurance Providers Payer Name Payer Address Payer Phone Subscriber Number Group Number Insured Name Patient Relationship to Insured Coverage Start Date Coverage End Date Medicare [place] [address] [address] [place] [address] [id number] JAYCE MOTT Self - patient is the insured [employer] [address] [place] [phone] [id number] JAYCE MOTT Self - patient is the insured MEDICAL (GENERAL) HISTORY Medical History History ICD Code Fatty liver Bradycardia Sleep apnea [place] CAD Anemia Hypertension Shingles Gout TIA Colon Cancer - In Remission Surgical History Surgery Date(Month/Year) PTCA x2 2000 Cholecystectomy 2009 Hernia repair 2014
--- OUTSIDE RECORDS SUMMARY | 2024-12-05 07:37 | XMS_ITS | Continuity of Care Document ---
Author Organization [facility] Address [address] [place] [address] Phone Care Team Providers Care Coal Tram Driver Name Role Phone Frandy Barrera DO Unavailable Unavailable Advance Directives Directive Yes / No Effective Date File Name No Information Encounters Encounter Description Practice Location Reason(s) For Visit Diagnoses Date Provider Providers Copied on Encounter [facility], [address], [place], [place], [id number], [place] tel:[phone] [facility] No Information Bruce Tabares. [address] [facility], [place], [address], [place]. tel: [phone] Family History Family Member Type Diagnosis Age [...]
--- OUTSIDE RECORDS SUMMARY | 2024-12-05 07:37 | XMS_ITS | CONTINUITY OF CARE DOCUMENT ---
Author Name sheila sosa Address Unknown Organization [facility] Address [address] [place] [address] [address] [place] [address] Phone [phone] Care Team Providers Care Hoop Maker Name Role Phone Mariusz Padilla MD Unavailable [phone] Mariusz Padilla MD Unavailable PAMELA CHANG MD Unavailable [phone] PROBLEMS Condition Status Date Provider Notes Obesity [...] Mariusz Padilla MD B12 deficiency active Mariusz garibay ok Renal disease, chronic, mild;neg us and duplex [...] In-person encounter Office Visit Mariusz Padilla MD [facility] CADhx of TIA;neg carotgid and telePalpitationsEmphysemaChest pain-type to be bjwknvfggbMixqdyxodwzQ29 deficiencyRenal disease, chronic, mild;neg us and duplexScreeningValvular [...] iron binding capacity, unsaturated 218 ug/dL [employer] 569-275 9600/09/0 4 iron binding capacity, total 295 ug/dL [employer] 466-851 3874/09/0 4 lipoprotein, beta, serum, point, quantitative, calculated 59 mg/dL [employer] 0-99 4 very low density lipoproteins 74 mg/dL [employer] 5-40 High 4 HDL cholesterol, serum 34 mg/dL [employer] >39 Low 4 triglyceride, serum, random 370 mg/dL [employer] 0-149 High 4 cholesterol, serum 167 mg/dL [employer] 469-522 4615/07/2 3 pro brain natriuretic peptide 282 pg/mL [...] Estab. 3 platelet count 309 X10E3/UL [employer] 680-878 1463/07/2 3 red blood cell distribution width 20.4 [...] 3.5-5.2 3 sodium, serum 142 mmol/L [employer] 549-149 3143/07/2 3 urea nitrogen/creatinine ratio, serum 20 [employer] [...] take one tablet by mouth once daily [facility]S FISH OIL 1000 MG ORAL CAPSULE active take one tablet by mouth once daily [facility] ADULT ASPIRIN REGIMEN 81 MG ORAL TABLET DELAYED RELEASE active take one tablet by mouth once daily [facility] CO Q 10 100 MG ORAL CAPSULE active take one tablet by mouth once daily [facility] SIMVASTATIN 20 MG ORAL TABLET active [...] libertarian ID [place] MEDICARE PART B Medicare [id number] [employer] Other 1 [id number] TREATMENT PLAN Date Name Performer Cardiology:to have to tittracorin Padilla MD Cardiology Mariusz Padilla MD Cardiology Mariusz Padilla MD Cardiology:treazted for pna and will repat Mariusz Padilla MD Cardiology:mild mr and tr Mariusz Padilla MD Cardiology:nml ef, n eg tele, neg pro bnp neg dd, neg uacr, nml tsh Mariusz Pdailla MD Cardiology Mariusz Padilla MD Cardiology Mariusz [...] Mariusz Padilla MD Date Name DLCO - 00341 FRC - 14995 FVC - 66914 IRON AND TOTAL IRON BINDING CAPACITY FERRITIN [...]
--- OUTSIDE RECORDS SUMMARY | 2024-12-05 07:38 | XMS_ITS | Clinical Summary ---
Author Organization [facility] Address [address] [facility] [place] [address] Care Team Providers Care Trade Mark Examiner Name Role Phone Devyn Fry MD Primary Care Provider [phone] Source Comments [facility],non-owned Affiliates and Associated Physician Practices is amultiple site organization consisting of ambulatory clinics and hospital sitesin [place], [place], [place] and [place]. This disclosure is being madepursuant to the Care Everywhere program and may not contain all information available regarding this patient. Last updated 18.[facility] Allergies Active Allergy Reactions Criticality Noted Date [...] on file Legal Sex Female 6:22 AM INTERPRETER Gender Identity Not on file Sexual Orientation Not on file Last Filed Vital Signs Vital Sign Reading Time Taken Comments Blood Pressure 100/60 08/29/2023 11:38 AM INTERPRETER Pulse 64 08/29/2023 11:38 AM INTERPRETER Temperature 36.7 C (98 F) 05/01/2020 6:46 PM INTERPRETER Respiratory Rate 14 08/29/2023 11:38 AM INTERPRETER Oxygen Saturation 95% 08/29/2023 11:38 AM INTERPRETER Inhaled Oxygen Concentration - - Weight 74.4 kg (164 lb) 08/29/2023 11:38 AM INTERPRETER Height 160 cm (5' 3) 08/29/2023 11:38 AM INTERPRETER Body Mass Index 29.05 08/29/2023 11:38 AM INTERPRETER Plan of Treatment Health Maintenance Due Date [...] age to complete this topic Insurance [address] [place] [id number] MEDICARE [employer] [place] Member Subscriber Plan / Payer (Ef fective 2019-Present) Name:Jayce Mott Relation to Subscriber:Self Name:JAYEC MOTT Payer ID:Not on file Group ID:[id number] N Type:Commercial Address: [facility] [address] MEDICARE [employer] Member Subscriber Plan / Payer (Ef fective 2014-Present) Name:Jayce Mott Relation to Subscriber:Self Name:SabamelanieJayce [place] Payer ID:Not on file Group ID:[id number] N Type:Commercial Address: [facility] [address] [place] MEDICARE Care Teams Trade Mark Examiner Relationship Specialty Start Date End Date Devyn Fry MD [address] [place] [address] PCP - General Family Medicine 06/14/23
--- OUTSIDE RECORDS SUMMARY | 2024-12-05 07:38 | XMS_ITS | Patient Health Record ---
Author Organization [facility] Address [address] [facility] [address] [place] [address] Care Team Providers Care Commercial Litigation Attorney Name Role Phone Ramos Vera MD Primary [...] Problem Status W/U Status Risk Notes Problem [id number] History of colon cancer (Z85.038) Active confirmed Plan Of Treatment Pending Test Test Name Order Date EUS 11/26/2021 Insurance Providers Payer Name Payer Address Payer Phone Subscriber Number Group Number Insured Name Patient Relationship to Insured Coverage Start Date Coverage End Date Medicare E2 [address] [address] [place] [address] [id number] Hui Dominguez Self - patient is the insured Physician [place] [address] [place] [phone] [id number] Angelica Hui Self - patient is the [...]
--- OUTSIDE RECORDS SUMMARY | 2024-12-05 07:38 | XMS_ITS | Encounter Summary ---
Author Organization [facility] Address [address] [place] [address] Care Team Providers Care Hollow Handle Bench Worker Name Role Phone Devyn Fry MD Primary Care Provider [phone] Encounter Details Date Type Department Care Team ([facility] Contact Info) Description 11/30/2024 Orders Only [facility] Oncology and Hematology Sreekanth [address] [place] [address] Alvin Cueto MD [facility] [employer] [address] [place] [phone] Social History Tobacco Use Types Packs/Day Years Used Date Smoking Tobacco: Former Cigarettes 07 26 1 3 - 2012 Smokeless Tobacco: Never Alcohol Use Standard [...] Encounters Date Type Department Care Team (Late Contact Info) Description 01/30/2025 3:45 PM CDT Office Visit [facility] Oncology and Hematology - Sreekanth [address] [place] [address] Alvin Cueto MD [facility] [employer] [address] [place] [phone] documented as of this encounter Procedures Procedure Name Priority Date/Time Associated Diagnosis Comments BASIC METABOLIC PANEL Routine 11/15/2024 11:45 AM CDT documented in this encounter Results * BASIC METABOLIC PANEL (11/15/2024 11:45 AM CDT) Blood us Alvin Cueto MD CHEMISTRY ORDERABLES Final Resu lt documented in this encounter Visit Diagnoses Not on filedocumented in this encounter Care Teams Hollow Handle Bench Worker Relationship Specialty Start Date End Date Devyn Fry MD [address] [place] [address] PCP - General Family Practice 08/22/24 documented as of this encounter
--- OUTSIDE RECORDS SUMMARY | 2024-12-05 07:38 | XMS_ITS | Referral Summary ---
Author Organization [facility] [place] [address] [facility] [address] Address [address] [place] [address] Care Team Providers Care Orthopedic Mechanic Name Role Phone Devyn Fry MD Primary Care Provider [phone] Encounters Date Type Department Care Team Description 09/06/2024 Results Follow-Up [facility] Medical Group Cardiology [address] [facility] [address] [place] [address] Halie Cai NP MCT Mobile [...] 20 mg tabletIndicatio ns:Coronary artery disease of [place] artery of [place] heart with stable angina pectoris Take 1 [...] artery disease of n ative artery of [place] heart with stable angina pectoris 04/11/2024 Pancreatic cyst 12/22/2021 Overview (12/22/2021): Added automatically from request for surgery [id number] Social History Tobacco Use Types Packs/Day Years [...] on file Legal Sex Female 7:57 AM ARCHITECTURAL MODEL MAKER Gender Identity Not on file Sexual Orientation Not on file Last Filed Vital Signs Vital Sign Reading Time Taken Comments Blood Pressure 121/76 08/07/2024 12:00 PM ARCHITECTURAL MODEL MAKER Pulse 75 08/07/2024 12:00 PM ARCHITECTURAL MODEL MAKER Temperature 36.5 C (97.7 F) 06/29/2024 8:00 AM ARCHITECTURAL MODEL MAKER Respiratory Rate 18 08/07/2024 12:0 0 PM ARCHITECTURAL MODEL MAKER Oxygen Saturation 96% 08/07/2024 12: 00 PM ARCHITECTURAL MODEL MAKER Inhaled Oxygen Concentration - - Weight 78.4 kg (172 lb 12.8 oz) 025 12:00 PM ARCHITECTURAL MODEL MAKER Height 160 cm (5' 3) 08/07/2024 12:00 PM ARCHITECTURAL MODEL MAKER Body Mass Index 30.61 08/07/2024 12:00 PM ARCHITECTURAL MODEL MAKER Plan of Treatment Not on file Medical Devices Implanted Type Area Patrol Guard Device Identifier Shelf Expiration Date Model / Serial / Lot Medtronic Card Vasc Surgery 3.0 X 18mm Marcelo [place] Rx Coronary Stent [id number] - [id number] Implanted:Qty: 1 on 06/29/2024 by Austin Richard MD at [facility] Medtronic Card Vasc Surgery 03/01/2027 [id number] / / [id number] 2000 Reyes Vascular System Closure Repair Femoral Artery Suture Mediated Perclose Prostyle 30108-62 - [id number] Implanted:Qty: 1 on 06/29/2024 by Austin Richard MD at [facility] Reyes Vascular 04/26/2026 [id number] / / [id number] Closure Inc Mynx Control 6-7fr 2 Mode Balloon Catheter Sealant Lock Syringe [id number] - [id number] Implanted:Qty: 1 on 06/29/2024 by Austin Richard MD at [facility] Right: Vein Access Closure Inc 03/01/2026 [id number] / / [id number] Insurance [facility] MEDICARE MEDICARE [employer] [place] Member Subscriber Plan / Payer (Ef fective 2014-Present) Name:Jayce Mott [place] Relation to Subscriber:Self Name:Jayce Mott Payer ID:[id number] Group ID:Not on file Type:COMMERCIAL Address: [facility] [address] [place], [place] MEDICARE [employer] [place] Member Subscriber Plan / Payer (Ef fective 2014-Present) Name:Jayce Mott [place] Relation to Subscriber:Self Name:Jayce Mott [place] Payer ID:[id number] Group ID:Not on file Type:COMMERCIAL Address: [facility] [address] [place], [place] Advance Directives For more information, please contact: [phone] * Full Code (Latest Code Status on File) Date Activated Date Inactivated Comments 06/29/2024 1:58 PM 06/29/2024 9:12 PM * Full Code Date Activated Date Inactivated Comments 01/15/2022 8:39 AM 01/15/2022 2:41 PM Care Teams Orthopedic Mechanic Relationship Specialty Start Date End Date Devyn Fry MD [address] [place], [place] [id number] PCP - General Family Medicine 04/11/24
--- OUTSIDE RECORDS SUMMARY | 2024-12-05 07:38 | XMS_ITS | Clinical Summary ---
Author Organization [facility] Address [address] [place] [address] Phone Care Team Providers Care Manager Brand Name Role Phone Devyn Fry MD Primary Care Provider [phone] Allergies Active Allergy Reactions Criticality Noted Date [...] Encounters Date Type Department Care Team Description 11/30/2024 Orders Only [facility] Oncology and Hematology - Sreekanth [address] [place] [id number] Alvin Cueto MD 11/20/2024 External Device Data STL ABSTRACTION Provider, Abstract 11/15/2024 External Device Data STL ABSTRACTION Provider, [...] Date Smoking Tobacco: Former Cigarettes 30 1 3 - 2012 Smokeless Tobacco: [...] Comments Blood Pressure 112/67 08/22/2024 1:06 PM CELL CHANGER Pulse 77 08/22/2024 1:06 PM CELL CHANGER Temperature 35.6 C (96 F) 08/22/2024 1:06 PM CELL CHANGER Respiratory Rate 15 08/22/2024 1:06 PM CELL CHANGER Oxygen Saturation 93% 08/22/2024 1:06 PM CELL CHANGER Inhaled Oxygen Concentration - - Weight 77.7 kg (171 lb 3.2 oz) 08/22/2024 1:06 P M CELL CHANGER Height 160 cm (5' 3) 05/25/2022 1:47 PM CELL CHANGER Body Mass Index 30.33 05/25/2022 1:47 PM CELL CHANGER Plan of Treatment Upcoming Encounters Date Type Department Care Team (Late st Contact Info) Description 01/30/2025 3:45 PM CDT Office Visit [facility] Oncology and Hematology - Sreekanth [address] [facility] [address] [place] [address] Alvin Cueto MD [address] [facility] [address] [place] [address] Health Maintenance Due Date Last [...] ) (1 - 1-dose 75+ series) 2024 Procedures Procedure Name Priority Date/Time Associated Diagnosis Comments BASIC METABOLIC PANEL Routine 11/15/2024 11:45 AM CDT from Last 3 Months Results * BASIC METABOLIC PANEL (11/15/2024 11:45 AM CDT) Blood Alvin Cueto MD CHEMISTRY ORDERABLES Final Resu lt from Last 3 Months Insurance MEDICARE PART A AND B [employer] RX [facility] Medicare Part D MEDICARE PART A AND B [employer] Care Teams Manager Brand Relationship Specialty Start Date End Date Devyn Fry MD [address] [place], [place] [address] PCP - General Family Practice 08/22/24
--- OUTSIDE RECORDS SUMMARY | 2024-12-05 07:38 | XMS_ITS | Clinical Summary ---
Author Organization [facility] [place] [address] [address] Address [address] [place] [address] Care Team Providers Care Manager Fleet Name Role Phone Devyn Fry MD Primary Care Provider [phone] Allergies Active Allergy Reactions Criticality Noted Date [...] 20 mg tabletIndicatio ns:Coronary artery disease of [place] artery of [place] heart with stable angina pectoris Take 1 [...] artery disease of n ative artery of [place] heart with stable angina pectoris 04/11/2024 Pancreatic cyst 12/22/2021 Overview (12/22/2021): Added automatically from request for surgery [id number] Encounters Date Type Department Care Team Description 09/06/2024 Results Follow-Up [facility] Medical Group Cardiology [address] [place] [address] [facility] Mobile Cardiac Telemetry Event Monitor from Last [...] Other Medical hysterectomy wi th BSO; Comments: [facility] 04/19/2014 - Hx Other Medical breast biopsy-b enign; Comments: [facility] 04/19/2014 - Awareness under anesthesia Chronic [...] on file Legal Sex Female 7:57 AM FLIGHT MANAGER Gender Identity Not on file Sexual Orientation Not on file Obstetrics History Last Filed Vital Signs Vital Sign Reading Time Taken Comments Blood Pressure 121/76 08/07/2024 12:00 PM FLIGHT MANAGER Pulse 75 08/07/2024 12:00 PM FLIGHT MANAGER Temperature 36.5 C (97.7 F) 06/29/2024 8:00 AM FLIGHT MANAGER Respiratory Rate 18 08/07/2024 12:0 0 PM FLIGHT MANAGER Oxygen Saturation 96% 08/07/2024 12: 00 PM FLIGHT MANAGER Inhaled Oxygen Concentration - - Weight 78.4 kg (172 lb 12.8 oz) 025 12:00 PM FLIGHT MANAGER Height 160 cm (5' 3) 08/07/2024 12:00 PM FLIGHT MANAGER Body Mass Index 30.61 08/07/2024 12:00 PM FLIGHT MANAGER Plan of Treatment Health Maintenance Due Date [...] 08/07/2025 08/07/2024 Medical Devices Implanted Type Area Green End Man Device Identifier Shelf Expiration Date Model / Serial / Lot Medtronic Card Vasc Surgery 3.0 X 18mm [place] [employer] Rx Coronary Stent [id number] - [id number] Implanted:Qty: 1 on 06/29/2024 by Austin Richard MD at [facility] Medtronic Card Vasc Surgery 03/01/2027 [id number] / / [id number] 2000 Reyes Vascular System Closure Repair Femoral Artery Suture Mediated Perclose Prostyle 06755-58 - [id number] Implanted:Qty: 1 on 06/29/2024 by Austin Richard MD at [facility] Reyes Vascular 04/26/2026 [id number] / / [id number] Access Closure Inc Mynx Control 6-7fr 2 Mode Balloon Catheter Sealant Lock Syringe [id number] - [id number] Implanted:Qty: 1 on 06/29/2024 by Austin Richard MD at [facility] Right: Vein Access Closure Inc 03/01/2026 [id number] / / [id number] Insurance [employer] [place] MEDICARE [facility] [address] [address] MEDICARE [employer] [place] MEDICARE PHYSICIANS [facility] [place] Advance Directives For more information, please contact: [phone] * Full Code (Latest Code Status on File) Date Activated Date Inactivated Comments 06/29/2024 1:58 PM 06/29/2024 9:12 PM * Full Code Date Activated Date Inactivated Comments 01/15/2022 8:39 AM 01/15/2022 2:41 PM Care Teams Manager Fleet Relationship Specialty Start Date End Date Devyn Fry MD [facility] [place] [address] PCP - General Family Medicine 04/11/24
== END 2024-12-05 07:33 | disposition home or self-care (01) ==
LOC: ANHIMG 07:35
PROVIDERS: PCP Family Medicine; Visit Provider Family Medicine
DX: Z12.31 Encounter for screening mammogram for malignant neoplasm of breast (principal)
CPT/HCPCS: 77063; 77067

== ENCOUNTER 2025-04-16 12:09 | Outpatient (CLI) | payer MEDICARE, OTHER, SELFPAY ==
[2025-04-16 13:49] LABS: Hematocrit 38.6 % (37.0-47.0); Hemoglobin 12.0 g/dL (12.0-15.0); Mean Corpuscular HGB Conc 31.1 g/dl (32-36); Mean Corpuscular Hemoglobin 30.6 pg (26-34); Mean Corpuscular Volume 98.5 fl (80-100); Platelet Count Result 210 k/mm3 (150-375); Red Blood Count 3.92 M/mm3 (4.2-5.4); White Blood Count 6.6 K/mm3 (4.5-10.0)
--- OUTSIDE RECORDS SUMMARY | 2025-04-16 14:54 | XMS_ITS | Clinical Summary ---
Author Organization [facility] [place] [address] [address] Address [address] [place] [address] Care Team Providers Care Operations Planner Name Role Phone Devyn Fry MD Primary Care Provider [phone] Allergies Active Allergy Reactions Criticality Noted Date [...] capsule Take 10 mg by mouth nightly 0 Active cyclobenzaprin e (FLEXERIL) 10 mg tablet Take 0.5 tablets (5 mg total) by mouth nightly as needed 4 Active furosemide (LASIX) 20 mg tablet Take 1 tablet (20 mg total) by mouth daily 4 Active omeprazole (PriLOSEC) 40 mg capsule Take 1 capsule (40 mg total) by mouth daily 4 Active allopurinoL (ZYLOPRIM) 300 mg tablet Take 1 tablet (300 mg total) by mouth daily 4 Active coenzyme Q10 200 mg capsule Take 10 mg by mouth daily Active sour munoz extract (TART MUNOZ EXTRACT ORAL) Take 1 tablet by mouth daily Active vitamin B complex capsule Take 1 capsule by mouth daily Active metoprolol tartrate (LOPRESSOR) 25 mg immediate release tablet Take 0.5 tablets (12.5 mg total) by mouth nightly Active potassium citrate 99 mg capsule Take 1 tablet by mouth daily Active zolpidem (AMBIEN) 5 mg tablet Take 1 tablet (5 mg total) by mouth nightly 4 Active aspirin 81 mg enteric coated tablet Take 1 tablet (81 mg total) by mouth daily 90 tablet 3 5 06/30/19 26 Active clopidogreL (PLAVIX) 75 mg tablet Take 1 tablet (75 mg total) by mouth daily 90 tablet 3 5 06/30/19 26 Active estradioL (ESTRACE) 0.01 % (0.1 mg/gram) vaginal cream Insert into the vagina every other day 5 Active atorvastatin (LIPITOR) 20 mg tabletIndicati ons:Coronary artery disease of [place] artery of [place] heart with stable angina pectoris TAKE 1 TABLET BY MOUTH EVERY DAY 90 tablet 3 5 Active atorvastatin (LIPITOR) 20 mg tabletIndicati ons:Coronary artery disease of [place] artery of [place] heart with stable angina pectoris Take 1 tablet (20 mg total) by mouth daily 30 tablet 11 4 04/08/20 25 Discontinued Active Problems Problem Noted Date Diagnosed Date Elevated left ventricular end-diastolic pressure (LVEDP) 01/09/2025 Stage 3b chronic kidney disease 07/03/2024 Chronic anemia 07/03/2024 LÓPEZ (dyspnea on exertion) 04/11/2024 Palpitations 04/11/2024 History of transient ischemic attack 04/11/2024 Former smoker 04/11/2024 Hyperlipidemia LDL goal <70 04/11/2024 Essential hypertension 04/11/2024 Coronary artery disease of n ative artery of [place] heart with stable angina pectoris 04/11/2024 Pancreatic cyst 12/22/2021 Overview (12/22/2021): Added automatically from request for surgery [id number] Surgical History Surgery Date Site/Laterality Comments APPENDECTOMY Appendectomy CHOLECYSTECTOMY Cholecystectomy COLON SURGERY 06/27/2018 - 06/26/2019 HYSTERECTOMY HERNIA REPAIR ANGIOPLASTY Medical History Medical History Date Comments Hx Other Medical hx Gout; Commen ts: [facility] 04/19/2014 - Chronic coronary artery disease Coronary artery disease Hypertension Hypertension Gastroesophageal reflux disease GERD Hx Other Medical hysterectomy wi th BSO; Comments: [facility] 04/19/2014 - Hx Other Medical breast biopsy-b enign; Comments: [facility] 04/19/2014 - Awareness under anesthesia Chronic diarrhea Colon cancer (HCC) Chronic kidney disease History of TIA (transient ischemic attack) LÓPEZ (dyspnea on exertion) Irritable bowel syndrome Urinary tract infection History of anemia History of blood transfusion Anemia Heart disease GI (gastrointestinal bleed) Stroke (HCC) Arthritis Family History Medical History Relation Name Comments Bladder Cancer Father Bill Cancer, bladd er; Cause of : Cancer, bladder Heart attack Father Bill Cerebral aneurysm Mother Linda Cerebral a neurysm; Stroke Mother Linda Relation Name Status Comments Father Bill (Age 82) Mother Linda (Age 83) Social History Tobacco Use Types Packs/Day Years Used Date Smoking Tobacco: Former Cigarettes Smokeless Tobacco: Never Tobacco Cessation:Counseling Given: Not [...] on file Legal Sex Female 7:57 AM STOCK TAKER Gender Identity Not on file Sexual Orientation Not on file Obstetrics History Last Filed Vital Signs Vital Sign Reading Time Taken Comments Blood Pressure 102/64 01/09/2025 1:46 PM CDT Pulse 80 01/09/2025 1:46 PM CDT Temperature 36.5 C (97.7 F) 06/29/2024 8:00 AM STOCK TAKER Respiratory Rate 18 08/07/2024 12:00 PM STOCK TAKER Oxygen Saturation 97% 01/09/2025 1:46 PM CDT Inhaled Oxygen Concentration - - Weight 82.6 kg (182 lb) 01/09/2025 1:46 PM CDT Height 160 cm (5' 3) 01/09/2025 1:46 PM CDT Body Mass Index 32.24 01/09/2025 1:46 PM CDT Plan of Treatment Health Maintenance Due Date Last Done Comments Colon Cancer Screening-Colonoscopy 1950 Hepatitis C Screening 1950 Osteoporosis Screening-Bone Density Scan 1949 DTaP/Tdap/Td Vaccine (1 - Tdap) 1960 Hepatitis B Screening 1967 Zoster Vaccine (1 of 2) 1999 Well Visit 65+ 2014 Pneumococcal vaccine 65+ (2 of 2 - PCV) 04/03/2020 04/03/2019 Covid-19 Vaccine (5 2024-2 6 season) 2025 10/01/2021, 04/25/2021, 09/09/2020, Additional history exists Influenza Vaccine (#1) 2025 , 04/03/2019, 04/14/2018, Additional history exists Fall Risk Assessment 06/29/2025 06/29/2024 Depression Screening 08/07/2025 08/07/2024 Medical Devices Implanted Type Area Public Relations Player Device Identifier Shelf Expiration Date Model / Serial / Lot Medtronic Card Vasc Surgery 3.0 X 18mm Marcelo [employer] Rx Coronary Stent [id number] - [id number] Implanted:Qty: 1 on 06/29/2024 by Austin Richard MD at [facility] Medtronic Card Vasc Surgery 03/01/2027 [id number] / / [id number] 2000 Reyes Vascular System Closure Repair Femoral Artery Suture Mediated Perclose Prostyle 53089-02 - [id number] Implanted:Qty: 1 on 06/29/2024 by Austin Richard MD at [facility] Reyes Vascular 04/26/2026 [id number] / / [id number] Closure Inc Mynx Control 6-7fr 2 Mode Balloon Catheter Sealant Lock Syringe [id number] - [id number] Implanted:Qty: 1 on 06/29/2024 by Austin Richard MD at [facility] Right: Vein Access Closure Inc 03/01/2026 [id number] / / [id number] Insurance [employer] [place] MEDICARE MEDICARE [employer] [place] MEDICARE PHYSIC[employer]ANS [place] [employer] [place] Advance Directives For more information, please contact: [phone] * Full Code (Latest Code Status on File) Date Activated Date Inactivated Comments 06/29/2024 1:58 PM 06/29/2024 9:12 PM * Full Code Date Activated Date Inactivated Comments 01/15/2022 8:39 AM 01/15/2022 2:41 PM Care Teams Operations Planner Relationship Specialty Start Date End Date Devyn Fry MD [facility] [place] [address] PCP - General Family Medicine 04/11/24
--- OUTSIDE RECORDS SUMMARY | 2025-04-16 14:54 | XMS_ITS | Encounter Summary ---
Author Organization [facility] Healthcare Address [address] [place] [address] Care Team Providers Care Equipment Hire Manager Name Role Phone Devyn Fry MD Primary Care Provider [phone] Encounter Details Date Type Department Care Team (Late st Contact Info) Description 11/19/2024 Orders Only [facility] Information Management [address] [place] [address] Scanning, Provider Social History Tobacco Use Types Packs/Day Years [...] on file Legal Sex Female 7:57 AM SIDEROGRAPHER Gender Identity Not on file Sexual Orientation Not on file documented as of this encounter Plan of Treatment Not on file documented as of this encounter Procedures Procedure Name Priority Date/Time Associated Diagnosis Comments SCAN - RADIOLOGY/IMAGING 11/18/2024 documented in this encounter Results * SCAN - RADIOLOGY/IMAGING (11/18/2024) Anatomical Region Laterality Modality Other us Provider Scanning Edited Result - Final documented in this encounter Visit Diagnoses Not on filedocumented in this encounter Care Teams Equipment Hire Manager Relationship Specialty Start Date End Date Devyn Fry MD [address] [place] [address] PCP - General Family Medicine 04/11/24 documented as of this encounter
--- OUTSIDE RECORDS SUMMARY | 2025-04-16 14:54 | XMS_ITS | Clinical Summary ---
Author Organization [facility] Address [facility] [place] [address] Care Team Providers Care Grain Oilseed Or Pasture Farm Worker Name Role Phone Devyn Fry MD Primary Care Provider [phone] Allergies Active Allergy Reactions Criticality Noted Date [...] 07/02/19 24 Active neomycin-polymy lavonne-dexamethaso ne (MAXITROL) 3.5-11671-4.1 Ointment APPLY THIN RIBBON ON UPPER AND [...] Comments Blood Pressure 109/70 06/04/2024 7:38 AM CHUTE TENDER Pulse 75 06/04/2024 7:38 AM CHUTE TENDER Temperature - - Respiratory Rate - - Oxygen Saturation 98% 06/04/2024 7:38 AM CHUTE TENDER Inhaled Oxygen Concentration - - Weight 75.8 kg (167 lb) 06/04/2024 7:38 AM CHUTE TENDER Height 160 cm (5' 3) 06/04/2024 7:38 AM CHUTE TENDER Body Mass Index 29.58 06/04/2024 7:38 AM CHUTE TENDER Plan of Treatment Health Maintenance Due Date Last Done Comments Colorectal Cancer Screening Colonoscopy (10 Years) 1949 Hepatitis C 1967 DTaP, Tdap and Td Vaccines (1 - Tdap) 1968 Annual Medicare Wellness Visit 2014 Dexa Scan (General) 2014 PHQ-2 (Physician [place]) 06/27/2024 06/04/2024 COVID-19 Vaccine ( season) 2025 03/13/2024, 03/18/2023, 03/22/2022, Additional history exists Influenza Adult (#1) 2025 02/07/2024, 02/12/2023, 04/03/2019, Additional history exists Zoster Vaccines Completed 12/29/2022, 10/27/2022 Pneumococcal Vaccine: 50+ Years Completed 02/07/2024, 04/03/2019 RSV Immunization or 60+ Years Completed 02/07/2024, 02/12/2023 Hepatitis A Vaccines Aged Out No long er eligible based on patient's age to complete this topic Meningococcal B Vaccine Aged Out No l onger eligible based on patient's age to complete this topic Meningococcal Vaccine Aged Out No kelli kellen eligible based on patient's age to complete this topic RSV Immunizations Under 20 Months Aged Out No longer eligible based on patient's age to complete this topic Insurance MEDICARE [employer] Care Teams Grain Oilseed Or Pasture Farm Worker Relationship Specialty Start Date End Date Devyn Fry MD [address] [place] [address] PCP - General FAMILY PRACTICE 02/09/24
--- OUTSIDE RECORDS SUMMARY | 2025-04-16 14:54 | XMS_ITS | Patient Health Record ---
Author Organization [facility] Address [address] [place] [address] YENNY Najera [address] Care Team Providers Care Lining Stamper Name Role Phone DARRICK BAZAN ASHLEY Unavailable [...] (G57.91) Active confirmed Mononeuropathy of lower limb (443244147) Problem Spondylolisthesis , lumbar region (M43.16) Active confirmed Acquired spondylolisthesis (839252387) Problem Spondylosis without myelopathy or radiculopathy, lumbar region (M47.816) Active confirmed Lumbosacral spondylosis without myelopathy (12628123) Problem Spondylosis without myelopathy or radiculopathy, lumbosacral region (M47.817) Active confirmed Lumbosacral spondylosis without myelopathy (disorder) (38601053) Problem Other intervertebral disc degeneration, lumbar region (M51.36) Active confirmed Degeneration of lumbar intervertebral disc (06487296) Problem Radiculopathy, lumbar region (M54.16) Active confirmed Lumbar radiculopathy (239117251) Problem Radiculopathy, lumbosacral region (M54.17) Active confirmed Lumbosacral radiculopathy (8697938) Problem Sciatica, unspecified side (M54.30) Active confirmed Sciatica (67492345) Problem Sciatica, right side (M54.31) Active confirmed Right side sci atica (344397105610619) Problem Sciatica, left side (M54.32) Active confirmed Left side scia eleonora (707949702763919) Problem Osseous stenosis of neural canal of lumbar region (M99.33) Active confirmed Spinal stenosis of lumbar region (31884942) Problem Osseous and subluxation stenosis of intervertebral foramina of lumbar region (M99.63) Active confirmed Spinal stenosis of lumbar region (43620437) Problem senior living (current) use of anticoagulants (Z79.01) Active confirmed Long-term curre nt use of anticoagulant (431682961) Problem Spinal stenosis, lumbar region with neurogenic 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) Active confirmed Neurogenic claudication (335510932) PLAN OF TREATMENT No Information Insurance Providers Payer Name Payer Address Payer Phone Subscriber Number Group Number Insured Name Patient Relationship to Insured Coverage Start Date Coverage End Date [place] [address] [address] [place] [address] [id number] JAYCE MOTT Self - patient is the insured [employer] [address] [place] [phone] [id number] JAYCE MOTT Self - patient is the insured MEDICAL (GENERAL) HISTORY Medical History History ICD Code Fatty liver Bradycardia Sleep apnea [place] CAD Anemia Hypertension Shingles Gout TIA Colon Cancer - In Remission Surgical History Surgery Date(Month/Year) PTCA x2 2000 Cholecystectomy 2009 Hernia repair 2014
--- OUTSIDE RECORDS SUMMARY | 2025-04-16 14:55 | XMS_ITS | Patient Health Record ---
Author Organization [employer] Address [address] [facility] [address] [place] [address] Care Team Providers Care Production Metal Sprayer Name Role Phone Ramos Vera MD Primary [...] 125 MG 1 capsule Orally 4 times daily; Duration: 14 days 12/11/2021 Active Omeprazole 40 MG [...] Problem Status W/U Status Risk Notes Problem History of malignant neoplasm of colon (629404340) History of colon cancer (Z85.038) Active confirmed Plan Of Treatment Pending Test Test Name Order Date EUS 11/26/2021 Insurance Providers Payer Name Payer Address Payer Phone Subscriber Number Group Number Insured Name Patient Relationship to Insured Coverage Start Date Coverage End Date Medicare E2 [address] [address] [place] [address] [id number] Hui Dominguez Self - patient is the insured Physician [place] [address] [place] [address] [phone] [id number] Hui Dominguez Self - patient is the insured Medical (General) History Medical History History ICD Code C. Diff. Colitis Pancreatic Cyst Gastroesophageal Reflux Disease (GERD) Hiatal Hernia Colonic Polyp Colon Cancer Diverticulitis Stroke Heart Disease/Stents Anemia Surgical History Surgery Date(Month/Year) Colonoscopy (Dr. Ace Carmichael) 2020 Colon Cancer 2019 Hernia x2 2015 Cholecystectomy 2000 Appendectomy 1999 Heart Stents (2) 1999 Breast Biopsy 1996 Hysterectomy 1974
--- OUTSIDE RECORDS SUMMARY | 2025-04-16 14:55 | XMS_ITS | Clinical Summary ---
Author Organization [facility] [employer] Address [address] [facility] [place] [address] Care Team Providers Care Electricity Trader Name Role Phone Devyn Fry MD Primary Care Provider [phone] [facility] [employer],non-owned Affiliates and Associated Physician Practices is amultiple site organization consisting of ambulatory clinics and hospital sitesin [place], [place], [place] and [place]. This disclosure is being madepursuant to the Care Everywhere program and may not contain all information available regarding this patient. Last updated 18.[facility] [employer] Allergies Active Allergy Reactions Criticality Noted Date [...] on file Legal Sex Female 6:22 AM NEWSPAPER PUBLISHER Gender Identity Not on file Sexual Orientation Not on file Last Filed Vital Signs Vital Sign Reading Time Taken Comments Blood Pressure 100/60 08/29/2023 11:38 AM NEWSPAPER PUBLISHER Pulse 64 08/29/2023 11:38 AM NEWSPAPER PUBLISHER Temperature 36.7 C (98 F) 05/01/2020 6:46 PM NEWSPAPER PUBLISHER Respiratory Rate 14 08/29/2023 11:38 AM NEWSPAPER PUBLISHER Oxygen Saturation 95% 08/29/2023 11:38 AM NEWSPAPER PUBLISHER Inhaled Oxygen Concentration - - Weight 74.4 kg (164 lb) 08/29/2023 11:38 AM NEWSPAPER PUBLISHER Height 160 cm (5' 3) 08/29/2023 11:38 AM NEWSPAPER PUBLISHER Body Mass Index 29.05 08/29/2023 11:38 AM NEWSPAPER PUBLISHER Plan of Treatment Health Maintenance Due Date [...] 1999 ZOSTER VACCINE (1 of 2) 1999 DEPRESSION SCREENING 06/27/2024 Respiratory Syncytial Virus (RSV) Vaccine Pt: or over 60 yrs (1 - 1-dose 75+ series) 2024 COVID-19 VACCINE ( - 2023-2 5 season) 2025 INFLUENZA VACCINE (#1) 2025 HEPATITIS B VACCINE Aged Out No [...] age to complete this topic Insurance [address] [place] [id number] MEDICARE [employer] [place] Member Subscriber Plan / Payer (Ef fective 2019-Present) Name:Jayce Mott Relation to Subscriber:Self Name:JAYCE MOTT Payer ID:Not on file Group ID:[id number] N Type:Commercial Address: [facility] [address] MEDICARE [employer] Member Subscriber Plan / Payer (Ef fective 2014-Present) Name:Jayce Mott Relation to Subscriber:Self Name:SabamelanieJayce [place] Payer ID:Not on file Group ID:[id number] N Type:Commercial Address: [facility] [address] [place] MEDICARE Care Teams Electricity Trader Relationship Specialty Start Date End Date Devyn Fry MD [address] [place] [address] PCP - General Family Medicine 06/14/23
--- OUTSIDE RECORDS SUMMARY | 2025-04-16 14:55 | XMS_ITS | Clinical Summary ---
Author Organization [facility] Address [address] [place] [address] Phone Care Team Providers Care Night Nurse Name Role Phone Devyn Fry MD Primary Care Provider [phone] Allergies Active Allergy Reactions Criticality Noted Date Comments Ciprofloxacin Other (See Comments) 09/25/2020 doesn't work Penicillins Hives High 09/25/2020 Medications metoprolol tartrate (LOPRESSOR) 25 mg tablet Take [...] Take 10 mg by mouth daily. Active atorvastatin (LIPITOR) 20 mg tablet Take 20 mg by mouth daily. Active Active Problems No known active problems Encounters Date Type Department Care Team Description 03/19/2025 External Device Data [facility] ABSTRACTION Provider, Abstract 03/12/2025 External Device Data [facility] ABSTRACTION Provider, Abstract 01/30/2025 3:45 PM CDT Office Visit [facility] Sreekanth [address] [place] [address] Alvin Cueto MD Chronic anemia (Primary Dx) 01/30/2025 Orders Only [facility] - Rseekanth [address] [place] [address] Alvin Cueto MD 01/29/2025 Orders Only [facility] - Sreekanth [address] [place] [address] Alvin Cueto MD from Last 3 Months Family History Medical [...] Sign Reading Time Taken Comments Blood Pressure 134/77 01/30/2025 3:23 PM CDT Pulse 83 01/30/2025 3:23 PM CDT Temperature 36.2 C (97.1 F) 01/30/2025 3:23 PM CDT Respiratory Rate 16 01/30/2025 3:23 PM CDT Oxygen Saturation 95% 01/30/2025 3:23 PM CDT Inhaled Oxygen Concentration - - Weight 81.7 kg (180 lb 3.2 oz) 01/30/2025 3:23 P M CDT Height 160 cm (5' 3) 05/25/2022 1:47 PM ANIMAL BOUNTY HUNTER Body Mass Index 31.92 05/25/2022 1:47 PM ANIMAL BOUNTY HUNTER Plan of Treatment Upcoming Encounters Date Type Department Care Team (Late st Contact Info) Description 08/05/2025 11:30 AM ANIMAL BOUNTY HUNTER Office Visit [facility]ematology - Sreekanth [address] [facility] [address] [place] [address] Alvin Cueto MD [address] [facility] [address] [place] [address] Health Maintenance Due Date Last Done Comments DTAP/TDAP/TD VACCINES (1 - Tdap) 1968 PNEUMOCOCCAL VACCINE 50+ YEARS (1 of 2 - PCV) 08/21/18 69 COLORECTAL SCREENING 1994 Colorectal Cancer Screening 1994 FIT-DNA Q 3 years 1994 FIT/FOBT Q 1 year 1994 Flex Sig/CT Colonography Q 5 years 1994 Lung Cancer Screening 1999 ZOSTER VACCINE (1 of 2) 1999 OSTEOPOROSIS SCREENING 2014 RSV VACCINE (60+ or ) (1 - 1-dose 75+ series) 2024 INFLUENZA VACCINE (#1) 2025 Procedures Procedure Name Priority Date/Time Associated Diagnosis Comments CBC WITH AUTODIFFERENTIAL Routine 2024 3:53 PM CDT BASIC METABOLIC PANEL Routine 01/29/2025 12:42 PM CDT IRON, TIBC, AND PERCENT SATURATION Routine 01/29/2025 11:23 AM CDT from Last 3 Months Results * CBC WITH AUTODIFFERENTIAL (01/29/2025 3:53 PM CDT) Blood us Alvin Cueto MD HEMATOLOGY ORDERABLES Final Res ult * BASIC METABOLIC PANEL (01/29/2025 12:42 PM CDT) Blood Alvin Cueto MD CHEMISTRY ORDERABLES Final Resu lt * IRON, TIBC, AND PERCENT SATURATION (01/29/2025 11:23 AM CDT) Blood Alvin Cueto MD CHEMISTRY ORDERABLES Final Resu lt from Last 3 Months Insurance MEDICARE PART A AND B [facility] RX [facility] Medicare Part D MEDICARE PART A AND B [facility]IC[facility] [facility] [facility] Care Teams Night Nurse Relationship Specialty Start Date End Date Devyn Fry MD [facility] [place] [address] PCP - General Family Practice 08/22/24
[2025-04-16 16:20] LABS: Add Urine Microscopic? YES; Appearance Urine Clear (Clear); Glucose Urine UA Negative (Negative); Leukocyte Esterase Ur 2+ LEU/UL (Negative); Nitrate Urine Negative (Negative); Specific Grav Ur 1.011 (1.001-1.035)
[2025-04-16 16:31] LABS: Albumin Level 4.1 g/dL (3.5-5.1); Anion Gap 9 mmol/L (4-12); Blood Urea Nitrogen 37 mg/dL (7-17); Calcium 10.2 mg/dL (8.4-10.2); Carbon Dioxide 22 mmol/L (22-30); Chloride 109 mmol/L (98-107); Estimated Glomerular Filt Rate 33; Glucose 85 mg/dL (65-110); Potassium 4.1 mmol/L (3.4-5.0); Sodium 140 mmol/L (137-145)
[2025-04-16 16:33] LABS: Parathyroid Intact 108.6 pg/mL (14.5-75.2)
[2025-04-16 16:38] LABS: Total Protein Urine Random 9 mg/dL; Ur Ttl Prot Creatinine Ratio 0.19 mg/mg (0-0.20)
[2025-04-17 18:08] LABS: ANA by IFA Rfx Titer/Pattern Negative (.)
== END 2025-04-16 12:10 | disposition home or self-care (01) ==
LOC: ANHLAB 12:10
PROVIDERS: PCP Family Medicine; Visit Provider Internal Medicine Nephrology
DX: R76.89 Other specified abnormal immunological findings in serum (principal); E83.52 Hypercalcemia; N18.32 Chronic kidney disease, stage 3b
CPT/HCPCS: 36415; 80069; 81001; 82306; 82570; 83970; 84156; 84590; 85027; 86037; 86038

== ENCOUNTER 2025-05-15 08:18 | Inpatient (IN) | payer MEDICARE, OTHER, SELFPAY ==
--- OUTSIDE RECORDS SUMMARY | 2001-03-03 07:15 | XMS_ITS | Continuity of Care Document ---
Author Organization [facility] Address [address] [place] [address] Phone Care Team Providers Care Historian Research Assistant Name Role Phone Frandy Barrera DO Unavailable Unavailable Advance Directives Directive Yes / No Effective Date File Name No Information Encounters Encounter Description Practice Location Reason(s) For Visit Diagnoses Date Provider Providers Copied on Encounter [facility], [address], [place], [place], [id number], [place] tel:[phone] [address] [facility] No Information Bruce Tabares. [address] [facility], [place], [address], [place]. tel: [phone] Family History Family Member Type Diagnosis Age At Onset No Information Payers Payer name Insurance type Covered green party ID Authoriza tion(s) No Information Social History Type Description Quantity Date Captured Comments Sex Female Smoking Status No Information Chief Complaint And Reason For Visit No Information Reason For Referral Reason For Referral No Information History Of Present Illness Encounter Date Complaint History Of Prese nt Illness No Information Functional Status Date Functional Assessmen t No Information Instructions Date Instruction Additional Infor mation No Information Assessments Type Assessment Date No Information Patient Care Teams Name Effective Dates (start - stop) Status Members No Information
[2025-05-15] VITALS (24 sets, daily range): BP systolic 85–134; BP diastolic 43–81; PULSE 62–103; RESP 12–22; TEMP 36.4–36.6; O2SAT 92–100; BMI 31.8
--- NOTE | ~2025-05-15 | CT_ITS ---
EXAMINATION: CT abdomen pelvis wo con DATE: 05/15/2025 09:43 INDICATION: Lower abdominal pain and diarrhea TECHNIQUE: Computed tomography (CT) of the abdomen and pelvis was performed without intravenous contrast. Automated exposure control and iterative reconstruction technique were employed. The dose-length product was 623.78 mGy-cm. COMPARISON: 11/22/2024 FINDINGS: Mild emphysema and mild dependent atelectasis at the bilateral lung bases. Heart size is normal. No pericardial or pleural effusion. Cholecystectomy clips the gallbladder fossa. Liver, spleen, pancreas and bilateral adrenal glands are normal. Again seen are bilateral renal cysts, the largest a 3.3 cm parapelvic cyst at the left kidney. There are also few small hyperdense proteinaceous/hemorrhagic cyst in the right kidney measuring up to 1.2 cm. Postoperative change of prior cecal resection with ileocolic anastomosis in the right abdomen. There is a large ventral hernia which contains a portion of the transverse colon as well as a couple small loops of small bowel. No bowel obstruction. Mild sigmoid and descending colon predominant diverticulosis without adjacent inflammatory change to suggest diverticulitis. Small likely ingested metallic foreign body, possibly within a diverticulum at the proximal sigmoid colon. There are small amounts of less dense high attenuation material, potentially barium within multiple additional diverticula. Fluid throughout the colon and multiple loops of small bowel consistent with nonspecific diarrhea. Bladder is normal. The uterus is not identified and has likely been surgically resected. No free intraperitoneal gas or fluid. No pathologically enlarged abdominal or pelvic lymphadenopathy. Mild lumbar and moderate lower thoracic spondylosis. Moderate bilateral sacroiliac osteoarthritis. IMPRESSION: 1. Fluid throughout the large and small bowel consistent with nonspecific diarrhea. No other acute intra-abdominal/pelvic process. 2. Large ventral hernia containing nonobstructed large and small bowel. 3. Mild diverticulosis with some retained high attenuation material within several diverticula including a possible small metallic foreign body within a diverticulum at the proximal sigmoid colon. Reviewed, dictated and finalized at location A. NING AND DEVELOPMENT DIRECTOR IMPRESSION: 1. Fluid throughout the large and small bowel consistent with nonspecific diarr hea. No other acute intra-abdominal/pelvic process. 2. Large ventral hernia containing nonobstructed large and small bowel. 3. Mild diverticulosis with some retained high attenuation material within omaira ral diverticula including a possible small metallic foreign body within a diver ticulum at the proximal sigmoid colon.
[2025-05-15 08:59] LABS: Hematocrit 38.4 % (37.0-47.0); Hemoglobin 12.1 g/dL (12.0-15.0); Immature Granulocyte Percent A 0.6 % (0-0.5); Lymphocytes Absolute Auto 1.32 K/mm3 (0.9-3.2); Mean Corpuscular HGB Conc 31.5 g/dl (32-36); Mean Corpuscular Hemoglobin 30.3 pg (26-34); Mean Corpuscular Volume 96.2 fl (80-100); Nucleated Red Blood Cells Absolute Auto 0.000 K/mm3 (0.0-0.012); Nucleated Red Blood Cells Perc 0.0 % (0.0-0.2); Platelet Count Result 191 k/mm3 (150-375); Red Blood Count 3.99 M/mm3 (4.2-5.4); White Blood Count 4.7 K/mm3 (4.5-10.0)
[2025-05-15] MEDS: SODIUM CHLORIDE 0.9% IV 1,000 ML 999 ML (09:12)
[2025-05-15 09:14] LABS: INR 1.0; Prothrombin Time 13.3 Seconds (11.1-14.7)
[2025-05-15 09:15] LABS: Partial Thromboplastin Time 26.4 Seconds (22.3-36.8)
[2025-05-15 09:17] LABS: Alanine Aminotransferase 23 U/L (6-35); Albumin Level 3.9 g/dL (3.5-5.1); Alkaline Phosphatase 102 U/L (38-126); Anion Gap 10 mmol/L (4-12); Aspartate Amino Transferase 53 U/L (14-36); Bilirubin,Total 0.5 mg/dL (0.2-1.3); Blood Urea Nitrogen 35 mg/dL (7-17); Calcium 10.1 mg/dL (8.4-10.2); Carbon Dioxide 20 mmol/L (22-30); Chloride 107 mmol/L (98-107); Estimated CRCL calculation 20 ml/min; Estimated Glomerular Filt Rate 22; Glucose 84 mg/dL (65-110); Lipase 104 U/L (23-300); Potassium 2.9 mmol/L (3.4-5.0); Sodium 137 mmol/L (137-145); Total Protein 6.7 g/dL (6.3-8.2)
--- NOTE | 2025-05-15 09:38 | PC.NURSE ---
EDP Dr. Parikh gave verbal order for 1L of NS
[2025-05-15] MEDS: POTASSIUM CHLORIDE 20 MEQ ER TABLET 40 MEQ PO (10:39)
[2025-05-15] MEDS: KCL 20 MEQ/SW 100 ML 100 ML 50 MEQ IVPB (10:42)
[2025-05-15] MEDS: SODIUM CHLORIDE 0.9% IV 500 ML 999 ML (10:45)
--- NOTE | 2025-05-15 11:23 | ED.NAVMDI ---
HPI - Nausea/Vomiting/Diarrhea General Chief complaint: Nausea/Vomiting/Diarrhea Stated complaint: diarrhea Time Seen by Provider: 05/15/25 08:35 History of Present Illness HPI Narrative: Pt presents with numerous episodes of diarrhea over the last 4 days. Pt had nausea at first with vomiting but that has resolved. Pt says she can't even lay down without having to get to BR with diarrhea. Related Data Home Medications ?Medication ?Instructions ?Recorded ?Confirmed ?Last Taken ?Type furosemide 20 mg tablet (Lasix) 20 mg PO DAILY 07/13/19 05/15/25 05/14/25 History omeprazole 40 mg capsule,delayed 40 mg PO DAILY 07/13/19 05/15/25 05/14/25 History release allopurinol 300 mg tablet 300 mg PO DAILY 03/20/24 05/15/25 05/14/25 History coenzyme Q10 75 mg capsule (Ultra 75 mg PO DAILY 03/20/24 05/15/25 05/14/25 History CoQ10) cyclobenzaprine 10 mg tablet 10 mg PO HS 03/20/24 05/15/25 05/14/25 History melatonin 10 mg capsule 10 mg PO QHS 03/20/24 05/15/25 05/14/25 History potassium citrate 99 mg capsule 99 mg PO DAILY 03/20/24 05/15/25 05/14/25 History sour ruffin extract 1,000 mg 1,000 mg PO DAILY 03/20/24 05/15/25 05/14/25 History capsule (Tart Ruffin Extract) aspirin 81 mg tablet,delayed 81 mg PO HS 08/13/24 05/15/25 05/14/25 History release clopidogrel 75 mg tablet 75 mg PO HS 08/13/24 05/15/25 05/14/25 History metoprolol succinate 25 mg 12.5 mg PO HS 11/18/24 05/15/25 05/14/25 History tablet,extended release 24 hr Allergies Allergy/AdvReac Type Severity Reaction Status Date / Time fenofibrate Allergy Intermediate ITCHING, Verified 05/15/25 17:42 HIVES ciprofloxacin Allergy Unknown Unknown Verified 05/15/25 17:42 Penicillins Allergy Unknown Unknown Verified 05/15/25 17:42 Review of Systems Review of Systems: All systems reviewed & are unremarkable except as noted in HPI and below PMFSH Past Medical History Medical History Gastroesophageal reflux Ventral hernia Cerebrovascular accident Irritable bowel syndrome with diarrhea Hyperlipidemia Hypertension Coronary artery disease Reported [place] in 1999. Colon cancer Surgical History Surgical History History of incisional hernia repair History of hysterectomy History of cholecystectomy History of appendectomy History of coronary artery stent placement History of colon resection Family History Family History Father Family history of heart disease in male family member before age 55 Cancer, bladder, neck Social History Social History Social History: Surrogate medical decision maker: Allan Dominguez, spouse. Code status: Full code. Smoking packs per day: 1 Smoking cigarettes per day: 20.0 Years smoked: 30 Smoking pack-years: 30.00 Smoking status: Former smoker Tobacco type: cigarettes Second hand tobacco smoke exposure: Yes Smoking end date: 05/15/19 Alcohol intake: never Substance use: never Substance use type: does not use Do You Feel Safe in your Home?: Yes Lack of Transportation: No Lack of Food: Never True Current Housing: I Have Housing Concerned About Future Housing: No Difficulty Paying Gas/Electric Bills: No Difficulty Paying for Meds: No Currently Unemployed: No Education: High School Diploma/GED Difficulty w/ Childcare or Family Care: No Living arrangements: with family Spiritual care concerns: No Agree to blood products: Yes Exam Const: General: healthy appearing and no acute distress Nutritional Appearance: well nourished Orientation/consciousness: patient oriented x3 Limitations: no limitations HENMT: Mouth: Yes dry mucous membranes Chest: Chest palpation & inspection: normal inspection of the chest Resp: Effort & Inspection: normal respiratory effort Auscultation: clear to auscultation bilaterally Cardio: Rate: regular rate Rhythm: regular rhythm GI: GI Palp: Yes Soft to palpation and No Tenderness to palpation present (GI) Auscultation: Hyperactive bowel sounds present Skin: General skin exam: normal color Rashes: no rashes Wounds: no wounds Neuro: General: patient oriented x3, moves all extremities, no meningeal signs and no focal motor deficits Speech: normal speech Extrem: General: normal to inspection and no clubbing, cyanosis or edema Psych: Mental Status: mental status grossly normal Affect: normal affect Attitude: cooperative Course Vital Signs Vital signs: Vital Signs Temperature 98 F 05/15/25 08:33 Pulse Rate 64 05/15/25 08:33 Respiratory Rate 16 05/15/25 08:33 Blood Pressure 109/64 05/15/25 08:33 Pulse Oximetry 99 05/15/25 08:33 Oxygen Delivery Room Air 05/15/25 08:33 Temperature 98 F 05/15/25 08:33 Pulse Rate 72 05/15/25 18:00 Respiratory Rate 14 05/15/25 14:46 Blood Pressure 100/74 05/15/25 14:46 Pulse Oximetry 100 05/15/25 14:46 Oxygen Delivery Room Air 05/15/25 08:33 MDM - Nausea/Vomiting/Diarrhea MDM Narrative Medical decision making narrative: labs reveal low potassium and mild dehydration. will replace k and admit. discussed with Dr Licona and agrees to admit Differential Diagnosis Differential diagnosis: Likely traveler's diarrhea, food poisoning, gastroenteritis and dehydration Lab Data Attestation: I reviewed the patient's lab results. 05/15/25 08:51 05/15/25 17:48 Labs: Lab Results 05/15/25 Range/Units 08:51 WBC 4.7 (4.5-10.0) K/mm3 RBC 3.99 L (4.2-5.4) M/mm3 Hgb 12.1 (12.0-15.0) g/dL Hct 38.4 (37.0-47.0) % MCV 96.2 (80-100) fl MCH 30.3 (26-34) pg MCHC 31.5 L (32-36) g/dl RDW 14.7 H (11.5-14.5) % Plt Count 191 (150-375) k/mm3 MPV 9.3 (7.4-10.4) fl Immature Gran % (Auto) 0.6 H (0-0.5) % Neut % (Auto) 55.1 (45.5-73.1) % Lymph % (Auto) 28.0 (18.3-44.2) % Campbell % (Auto) 13.4 H (2.6-8.5) % Eos % (Auto) 2.1 (0-4.4) % Baso % (Auto) 0.8 (0.2-1.2) % Lymph # (Auto) 1.32 (0.9-3.2) K/mm3 Campbell # (Auto) 0.6 (0.1-0.6) K/mm3 Eos # (Auto) 0.1 (0-0.3) K/mm3 Baso # (Auto) 0.0 (0.0-0.1) K/mm3 Abs Immat Gran (auto) 0.03 (0.00-0.031) K/mm3 Absolute Neuts (auto) 2.6 (1.3-6.7) K/mm3 Absolute Nucleated RBC 0.000 (0.0-0.012) K/mm3 Nucleated RBC % 0.0 (0.0-0.2) % PT 13.3 (11.1-14.7) Seconds INR 1.0 APTT 26.4 (22.3-36.8) Seconds Sodium 137 (137-145) mmol/L Potassium 2.9 L (3.4-5.0) mmol/L Chloride 107 (98-107) mmol/L Carbon Dioxide 20 L (22-30) mmol/L Anion Gap 10 (4-12) mmol/L BUN 35 H (7-17) mg/dL Creatinine 2.21 H (0.7-1.0) mg/dL Estim Creat Clear Calc 20 ml/min Estimated GFR 22 L (59 - ) Glucose 84 (65-110) mg/dL Calcium 10.1 (8.4-10.2) mg/dL Total Bilirubin 0.5 (0.2-1.3) mg/dL AST 53 H (14-36) U/L ALT 23 (6-35) U/L Alkaline Phosphatase 102 (38-126) U/L Total Protein 6.7 (6.3-8.2) g/dL Albumin 3.9 (3.5-5.1) g/dL Lipase 104 (23-300) U/L Blood Type B Positive Antibody Screen Negative Imaging Data Attestation: I personally reviewed and interpreted this imaging study as follows: My impression: fluid in colon Radiologist's impression: [facility] [address] [place] [address] [address] [address] Scan Report Signed Patient: Hui Dominguez : 1950 MR#: [id number] Age: 74 Acct:[id number] Loc: [facility] ADM Date: 05/15/[address]: Ordering Physician: Perry Parikh III, DO Date of Service: 05/15/25 Procedure(s): CT abdomen pelvis wo con Accession Number(s): [id number] cc: Perry Parikh III, DO~ EXAMINATION: CT abdomen pelvis wo con DATE: 05/15/2025 09:43 INDICATION: Lower abdominal pain and diarrhea TECHNIQUE: Computed tomography (CT) of the abdomen and pelvis was performed without intravenous contrast. Automated exposure control and iterative reconstruction technique were employed. The dose-length product was 623.78 mGy-cm. COMPARISON: 11/22/2024 FINDINGS: Mild emphysema and mild dependent atelectasis at the bilateral lung bases. Heart size is normal. No pericardial or pleural effusion. Cholecystectomy clips the gallbladder fossa. Liver, spleen, pancreas and bilateral adrenal glands are normal. Again seen are bilateral renal cysts, the largest a 3.3 cm parapelvic cyst at the left kidney. There are also few small hyperdense proteinaceous/hemorrhagic cyst in the right kidney measuring up to 1.2 cm. Postoperative change of prior cecal resection with ileocolic anastomosis in the right abdomen. There is a large ventral hernia which contains a portion of the transverse colon as well as a couple small loops of small bowel. No bowel obstruction. Mild sigmoid and descending colon predominant diverticulosis without adjacent inflammatory change to suggest diverticulitis. Small likely ingested metallic foreign body, possibly within a diverticulum at the proximal sigmoid colon. There are small amounts of less dense high attenuation material, potentially barium within multiple additional diverticula. Fluid throughout the colon and multiple loops of small bowel consistent with nonspecific diarrhea. Bladder is normal. The uterus is not identified and has likely been surgically resected. No free intraperitoneal gas or fluid. No pathologically enlarged abdominal or pelvic lymphadenopathy. Mild lumbar and moderate lower thoracic spondylosis. Moderate bilateral sacroiliac osteoarthritis. IMPRESSION: 1. Fluid throughout the large and small bowel consistent with nonspecific diarrhea. No other acute intra-abdominal/pelvic process. 2. Large ventral hernia containing nonobstructed large and small bowel. 3. Mild diverticulosis with some retained high attenuation material within several diverticula including a possible small metallic foreign body within a diverticulum at the proximal sigmoid colon. Reviewed, dictated and finalized at location A. CTOR OF GROUP SALES Please be advised this is a medical document. It is intended for [id number] communication. It is written in medical language and may contain unfamiliar abbreviations or verbiage. Medical documents are intended to carry relevant information, facts as evident, and the clinical opinion of the practitioner at the time of the encounter. This report may have been done utilizing a voice recognition system. Attempts have been made to correct errors. However, there may be uncorrected grammatical, spelling, and recognition errors present. The file time of this note does not necessarily represent the time of service. Dictated By: Robin Hua MD 05/15/25 6520 Signed By: <Electronically signed by Robin Hua MD in OV> 05/15/25 1005 Discharge Plan Discharge Clinical Impression: Acute hypokalemia, Dehydration Patient Disposition: Still a Patient Condition: Stable
--- OUTSIDE RECORDS SUMMARY | 2025-05-15 11:37 | XMS_ITS | Patient Health Record ---
Author Organization [employer] Address [address] [facility] [address] [place] [address] Care Team Providers Care Hand Assembler For Puller Over Name Role Phone Ramos Vera MD Primary [...] Problem History of malignant neoplasm of colon (004558307) History of colon cancer (Z85.038) Active confirmed Plan Of Treatment Pending Test Test Name Order Date EUS 11/26/2021 Insurance Providers Payer Name Payer Address Payer Phone Subscriber Number Group Number Insured Name Patient Relationship to Insured Coverage Start Date Coverage End Date Medicare E2 [address] [address] [place] [address] [id number] Hui Dominguez Self - patient is the insured Physician [place] [address] [place] [address] [id number] Hui Dominguez Self - patient is the [...]
--- OUTSIDE RECORDS SUMMARY | 2025-05-15 11:37 | XMS_ITS | Clinical Summary ---
Author Organization [facility] Address [address] [place] [address] Phone Care Team Providers Care Liability Claims Manager Name Role Phone Devyn Fry MD Primary Care Provider [phone] Allergies Active Allergy Reactions Criticality Noted Date [...] Encounters Date Type Department Care Team Description 04/17/2025 External Device Data [facility] ABSTRACTION Provider, Abstract 04/16/2025 External Device Data ST[facility] ABSTRACTION Provider, Abstract 03/19/2025 External Device Data [facility] ABSTRACTION Provider, [...] Tobacco: Former Cigarettes 1 30 1 3 2012 Smokeless Tobacco: Never Tobacco Cessation:Counseling Given: [...] 160 cm (5' 3) 05/25/2022 1:47 PM SALES REPRESENTATIVE PUBLICATIONS Body Mass Index 31.92 05/25/2022 1:47 PM SALES REPRESENTATIVE PUBLICATIONS Plan of Treatment Upcoming Encounters Date Type Department Care Team (Late st Contact Info) Description 08/05/2025 11:30 AM SALES REPRESENTATIVE PUBLICATIONS Office Visit [facility] Oncology and Hematology - Sreekanth [address] [place] [address] Alvin Cueto MD [address] [facility] [address] [place] [address] Health Maintenance Due Date Last Done [...] 75+ series) 2024 INFLUENZA VACCINE (#1) 2025 Insurance MEDICARE PART A AND B [facility] [address] [address] [id number] RX [facility] Medicare Part D MEDICARE PART A AND B [employer] [facility] Care Teams Liability Claims Manager Relationship Specialty Start Date End Date Devyn Fry MD [facility] [place] [address] PCP - General Family Practice 08/22/24
--- OUTSIDE RECORDS SUMMARY | 2025-05-15 11:37 | XMS_ITS | Patient Health Record ---
Author Organization [facility] Address [address] [place] [address] YENNY Najera [address] Care Team Providers Care Tassel Snipper Name Role Phone DARRICK BAZAN ASHLEY Unavailable [...] (G57.91) Active confirmed Mononeuropathy of lower limb (955772813) Problem Spondylolisthesis , lumbar region (M43.16) Active confirmed Acquired spondylolisthesis (466920256) Problem Spondylosis without myelopathy or radiculopathy, lumbar region (M47.816) Active confirmed Lumbosacral spondylosis without myelopathy (49148987) Problem Spondylosis without myelopathy or radiculopathy, lumbosacral region (M47.817) Active confirmed Lumbosacral spondylosis without myelopathy (disorder) (05197678) Problem Other intervertebral disc degeneration, lumbar region (M51.36) Active confirmed Degeneration of lumbar intervertebral disc (95043061) Problem Radiculopathy, lumbar region (M54.16) Active confirmed Lumbar radiculopathy (567459463) Problem Radiculopathy, lumbosacral region (M54.17) Active confirmed Lumbosacral radiculopathy (3229427) Problem Sciatica, unspecified side (M54.30) Active confirmed Sciatica (37277200) Problem Sciatica, right side (M54.31) Active confirmed Right side sci atica (153910265316710) Problem Sciatica, left side (M54.32) Active confirmed Left side scia eleonora (166310206210094) Problem Osseous stenosis of neural canal of lumbar region (M99.33) Active confirmed Spinal stenosis of lumbar region (53394118) Problem Osseous and subluxation stenosis of intervertebral foramina of lumbar region (M99.63) Active confirmed Spinal stenosis of lumbar region (65718230) Problem intermediate manager (current) use of anticoagulants (Z79.01) Active confirmed Long-term curre nt use of anticoagulant (649784727) Problem Spinal stenosis, lumbar region with neurogenic 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) Active confirmed Neurogenic claudication (840259090) PLAN OF TREATMENT No Information Insurance Providers Payer Name Payer Address Payer Phone Subscriber Number Group Number Insured Name Patient Relationship to Insured Coverage Start Date Coverage End Date Medicare [place] [address] [address] [place] [address] [id number] JAYCE MOTT Self - patient is the insured [employer] [address] [place] [phone] [id number] JAYCE MOTT Self - patient is the insured MEDICAL (GENERAL) HISTORY Medical History History ICD Code Fatty liver Bradycardia Sleep apnea [place] CAD Anemia Hypertension Shingles Gout TIA Colon Cancer - In Remission Surgical History Surgery Date(Month/Year) PTCA x2 2000 Cholecystectomy 2009 Hernia repair 2014
--- OUTSIDE RECORDS SUMMARY | 2025-05-15 11:37 | XMS_ITS | Clinical Summary ---
Author Organization [facility] Address [facility] [place] [address] Care Team Providers Care Proposal Writer Name Role Phone Devyn Fry MD Primary Care Provider [phone] Allergies Active Allergy Reactions Criticality Noted Date [...] 07/02/19 24 Active neomycin-polymy lavonne-dexamethaso ne (MAXITROL) 3.5-80022-5.1 Ointment APPLY THIN RIBBON ON UPPER AND [...] Comments Blood Pressure 109/70 06/04/2024 7:38 AM RAP ARTIST Pulse 75 06/04/2024 7:38 AM RAP ARTIST Temperature - - Respiratory Rate - - Oxygen Saturation 98% 06/04/2024 7:38 AM RAP ARTIST Inhaled Oxygen Concentration - - Weight 75.8 kg (167 lb) 06/04/2024 7:38 AM RAP ARTIST Height 160 cm (5' 3) 06/04/2024 7:38 AM RAP ARTIST Body Mass Index 29.58 06/04/2024 7:38 AM RAP ARTIST Plan of Treatment Health Maintenance Due Date Last Done Comments Colorectal Cancer Screening Colonoscopy (10 Years) 1949 Hepatitis C 1967 DTaP, Tdap and Td Vaccines (1 - Tdap) 1968 Annual Medicare Wellness Visit 2014 Dexa Scan (General) 2014 PHQ-2 (Physician [place]) 06/27/2024 06/04/2024 COVID-19 Vaccine ( season) 2025 [...] topic Insurance MEDICARE [employer] Care Teams Proposal Writer Relationship Specialty Start Date End Date Devyn Fry MD [address] [place] [address] PCP - General FAMILY PRACTICE 02/09/24
--- OUTSIDE RECORDS SUMMARY | 2025-05-15 11:37 | XMS_ITS | Clinical Summary ---
Author Organization [facility] Address [address] [place] [address] Care Team Providers Care Production Department Supervisor Name Role Phone Devyn Fry MD Primary Care Provider Source Comments [facility],non-owned Affiliates and Associated Physician Practices is amultiple site organization consisting of ambulatory clinics and hospital sitesin [place], [place], [place] and [place]. This disclosure is being madepursuant to the Care Everywhere program and may not contain all information available regarding this patient. Last updated 18.[facility] Allergies Active Allergy Reactions Criticality Noted Date [...] Years Used Date Smoking Tobacco: Former Cigarettes 0 Q uit: 2013 Smokeless Tobacco: Never Tobacco [...] on file Legal Sex Female 6:22 AM MANAGER AREA Gender Identity Not on file Sexual Orientation Not on file Last Filed Vital Signs Vital Sign Reading Time Taken Comments Blood Pressure 100/60 08/29/2023 11:38 AM MANAGER AREA Pulse 64 08/29/2023 11:38 AM MANAGER AREA Temperature 36.7 C (98 F) 05/01/2020 6:46 PM MANAGER AREA Respiratory Rate 14 08/29/2023 11:38 AM MANAGER AREA Oxygen Saturation 95% 08/29/2023 11:38 AM MANAGER AREA Inhaled Oxygen Concentration - - Weight 74.4 kg (164 lb) 08/29/2023 11:38 AM MANAGER AREA Height 160 cm (5' 3) 08/29/2023 11:38 AM MANAGER AREA Body Mass Index 29.05 08/29/2023 11:38 AM MANAGER AREA Plan of Treatment Health Maintenance Due Date [...] 75+ series) 2024 COVID-19 VACCINE ( - 2024-2 6 season) 2025 INFLUENZA VACCINE (#1) 2025 HEPATITIS [...] age to complete this topic Insurance [address] [place] [id number] MEDICARE [employer] [place] Member Subscriber Plan / Payer (Ef fective 2019-Present) Name:Jayce Mott Relation to Subscriber:Self Name:JAYCE MOTT Payer ID:Not on file Group ID:PLAN N Type:Commercial Address: [facility] [address] MEDICARE [employer] Member Subscriber Plan / Payer (Ef fective 2014-Present) Name:Jayce Mott Relation to Subscriber:Self Name:SabamelanieJayce [place] Payer ID:Not on file Group ID:PLAN N Type:Commercial Address: [facility] [address] MEDICARE Care Teams Production Department Supervisor Relationship Specialty Start Date End Date Devyn Fry MD [address] [place] [id number] PCP - General Family Medicine 06/14/23
--- OUTSIDE RECORDS SUMMARY | 2025-05-15 11:37 | XMS_ITS | Clinical Summary ---
Author Organization [facility] [address] [address] Address [address] [place] [address] Care Team Providers Care Head Banquet Waiter/Waitress Name Role Phone Devyn Fry MD Primary Care Provider [phone] Allergies Active Allergy Reactions Criticality Noted Date [...] mouth daily 90 tablet 3 06/30/2024 Active estradioL (ESTRACE) 0.01 % (0.1 mg/gram) vaginal cream Insert into the vagina every other day 12/04/2024 Active atorvastatin (LIPITOR) 20 mg tabletIndicatio ns:Coronary artery disease of [place] artery of [place] heart with stable angina pectoris TAKE 1 TABLET BY MOUTH EVERY DAY 90 tablet 3 04/08/2025 Active Active Problems Problem Noted Date Diagnosed Date Elevated left ventricular end-diastolic pressure (LVEDP) 01/09/2025 Stage 3b chronic kidney disease 07/03/2024 Chronic anemia 07/03/2024 LÓPEZ (dyspnea on exertion) 04/11/2024 Palpitations 04/11/2024 History of transient ischemic attack 04/11/2024 Former smoker 04/11/2024 Hyperlipidemia LDL goal <70 04/11/2024 Essential hypertension 04/11/2024 Coronary artery disease of [place] artery of [place] heart with stable angina pectoris 04/11/2024 Pancreatic cyst 12/22/2021 Overview (12/22/2021): Added automatically from request for surgery [id number] Surgical History Surgery Date Site/Laterality Comments APPENDECTOMY Appendectomy CHOLECYSTECTOMY Cholecystectomy COLON SURGERY 06/27/2018 - 06/26/2019 HYSTERECTOMY HERNIA REPAIR ANGIOPLASTY Medical History Medical History Date Comments Hx Other Medical hx Gout; Commen ts: [facility] 04/19/2014 - Chronic coronary artery disease Coronary artery disease Hypertension Hypertension Gastroesophageal reflux disease GERD Hx Other Medical hysterectomy [facility] BSO; Comments: [facility] 04/19/2014 [...] on file Legal Sex Female 7:57 AM NEON SIGN MECHANIC Gender Identity Not on file Sexual Orientation Not on file Last Filed Vital Signs Vital Sign Reading Time Taken Comments Blood Pressure 102/64 01/09/2025 1:46 PM CDT Pulse 80 01/09/2025 1:46 PM CDT Temperature 36.5 C (97.7 F) 06/29/2024 8:00 AM NEON SIGN MECHANIC Respiratory Rate 18 08/07/2024 12:00 PM NEON SIGN MECHANIC Oxygen Saturation 97% 01/09/2025 1:46 PM CDT [...] 08/07/2024 Medical Devices Implanted Type Area Public Health Service Officer Device Identifier Shelf Expiration Date Model / Serial / Lot Medtronic Card Vasc Surgery 3.0 X 18mm Jackson Steele Rx Coronary Stent [id number] - [id number] Implanted:Qty: 1 on 06/29/2024 by Austin Richard MD at [facility] Medtronic Card Vasc Surgery 03/01/2027 [id number] / / [id number] Reyes V[employer] System Closure Repair Femoral Artery Suture Mediated Perclose Prostyle 12879-23 - [id number] Implanted:Qty: 1 on 06/29/2024 by Austin Richard MD at [facility] [employer] 04/26/2026 [id number] / / [id number] Closure Inc Mynx Control 6-7fr 2 Mode Balloon Catheter Sealant Lock Syringe [id number] - [id number] Implanted:Qty: 1 on 06/29/2024 by Austin Richard MD at [facility] Right: Vein Access Closure Inc 03/01/2026 [id number] / / [id number] Insurance [employer] [place] MEDICARE [facility] [address] MEDICARE [employer] [place] MEDICARE PHYSICIANS [place] [employer] [place] Advance Directives For more information, please contact: [phone] * Full Code (Latest Code Status on File) Date Activated Date Inactivated Comments 06/29/2024 1:58 PM 06/29/2024 9:12 PM * Full Code Date Activated Date Inactivated Comments 01/15/2022 8:39 AM 01/15/2022 2:41 PM Care Teams Head Banquet Waiter/Waitress Relationship Specialty Start Date End Date Devyn Fry MD [facility] [place] [address] PCP - General Family Medicine 04/11/24
--- OUTSIDE RECORDS SUMMARY | 2025-05-15 11:37 | XMS_ITS | Encounter Summary ---
Author Organization [facility] Address [address] [place] [address] Care Team Providers Care Cement Tile Maker Name Role Phone Devyn Fry MD Primary Care Provider [phone] Encounter Details Date Type Department Care Team (Late st Contact Info) Description 11/19/2024 Orders Only [facility] Information Management [address] [place] [id number] Scanning, Provider Social History Tobacco Use [...] on file Legal Sex Female 7:57 AM RECORDS MANAGEMENT DIRECTOR Gender Identity Not on file Sexual [...] on filedocumented in this encounter Care Teams Cement Tile Maker Relationship Specialty Start Date End Date Devyn rFy MD [address] [place] [address] PCP - General Family Medicine 04/11/24 documented as of this encounter
[2025-05-15] MEDS: SODIUM CHLORIDE 0.9% IV 1,000 ML 200 ML IV CONT ×2 (11:56→18:34)
[2025-05-15] MEDS: MIDODRINE HCL 2.5 MG TABLET 5 MG PO (12:37)
[2025-05-15 13:42] LABS: Add Urine Microscopic? YES; Appearance Urine Cloudy (Clear); Glucose Urine UA Negative (Negative); Leukocyte Esterase Ur 3+ LEU/UL (Negative); Need Manual Microscopic Reviewed; Nitrate Urine Positive (Negative); Non Pathogenic Casts >20; Specific Grav Ur 1.015 (1.001-1.035)
--- NOTE | 2025-05-15 13:51 | PC.NURSE ---
this RN called Dr. Brothers and verified that they would like the second bag of potassium hung
[2025-05-15] MEDS: PANTOPRAZOLE SODIUM IV 40 MG VIAL IV PUSH (13:58)
[2025-05-15] MEDS: POTASSIUM CHLORIDE INJ 40 MEQ in SODIUM CHLORIDE 0.9% IV 500 ML 130 MEQ IVPB (13:59)
--- NOTE | 2025-05-15 14:12 | PM.IMHP ---
H&P: HPI History of Present Illness Date/Time: 05/15/25 14:12 Chief Complaint: Dizziness Ongoing diarrhea Narrative: 74-year-old female with past medical history of coronary artery disease, colon cancer presented with 4 days of ongoing diarrhea. She started having diarrhea 4 days ago, denies any stool softener use, denies any antibiotic use. Ongoing diarrhea was associated with decreased appetite, lethargy. She was unable to ambulate in her house. Feeling very dizzy, lightheaded. Unable to keep anything down due to severely decreased appetite. Denies any abdominal pain.She has history of colon cancer in the past. She had 1 day of bright red blood per rectum with stool(several episodes). Currently she is having brown-colored liquid stools. CT abdomen pelvis shows Fluid throughout the large and small bowel consistent with nonspecific diarrhea. No other acute intra-abdominal/pelvic process. Large ventral hernia containing nonobstructed large and small bowel. Mild diverticulosis with some retained high attenuation material within several diverticula including a possible small metallic foreign body within a diverticulum at the proximal sigmoid colon. Review of Systems Review of Systems: All systems reviewed & are unremarkable except as noted in HPI and below PMFSH Past Medical History Medical History Gastroesophageal reflux Ventral hernia Cerebrovascular accident Irritable bowel syndrome with diarrhea Hyperlipidemia Hypertension Coronary artery disease Reported [place] in 1999. Colon cancer Surgical History Surgical History History of incisional hernia repair History of hysterectomy History of cholecystectomy History of appendectomy History of coronary artery stent placement History of colon resection Family History Family History Father Family history of heart disease in male family member before age 55 Cancer, bladder, neck Social History Social History Social History: Surrogate medical decision maker: Allan Dominguez, spouse. Code status: Full code. Smoking packs per day: 1 Smoking cigarettes per day: 20.0 Years smoked: 30 Smoking pack-years: 30.00 Smoking status: Former smoker Second hand tobacco smoke exposure: No Alcohol intake: never Substance use: never Substance use type: does not use Do You Feel Safe in your Home?: Yes Lack of Transportation: No Lack of Food: Never True Current Housing: I Have Housing Concerned About Future Housing: No Difficulty Paying Gas/Electric Bills: No Difficulty Paying for Meds: No Currently Unemployed: No Education: High School Diploma/GED Difficulty w/ Childcare or Family Care: No Living arrangements: with family Spiritual care concerns: No Agree to blood products: Yes Meds Home Medications and Allergies Home Medications ?Medication ?Instructions ?Recorded ?Confirmed ?Type furosemide 20 mg tablet (Lasix) 20 mg PO DAILY 07/13/19 04/23/25 History omeprazole 40 mg capsule,delayed 40 mg PO DAILY 07/13/19 04/23/25 History release allopurinol 300 mg tablet 300 mg PO DAILY 03/20/24 04/23/25 History coenzyme Q10 75 mg capsule (Ultra 75 mg PO DAILY 03/20/24 04/23/25 History CoQ10) cyclobenzaprine 10 mg tablet 10 mg PO HS 03/20/24 04/23/25 History melatonin 10 mg capsule 10 mg PO QHS 03/20/24 04/23/25 History potassium citrate 99 mg capsule 99 mg PO DAILY 03/20/24 04/23/25 History sour ruffin extract 1,000 mg 1,000 mg PO DAILY 03/20/24 04/23/25 History capsule (Tart Ruffin Extract) atorvastatin 20 mg tablet 20 mg PO DAILY 06/18/24 04/23/25 History aspirin 81 mg tablet,delayed 81 mg PO HS 08/13/24 04/23/25 History release clopidogrel 75 mg tablet 75 mg PO DAILY 08/13/24 04/23/25 History metoprolol succinate 25 mg 12.5 mg PO HS 11/18/24 04/23/25 History tablet,extended release 24 hr Allergies Allergy/AdvReac Type Severity Reaction Status Date / Time fenofibrate Allergy Intermediate ITCHING, Verified 05/15/25 10:38 HIVES ciprofloxacin Allergy Unknown Unknown Verified 05/15/25 10:38 Penicillins Allergy Unknown Unknown Verified 05/15/25 10:38 Vital Signs Vital Signs - 24 hr 05/15/25 08:33 05/15/25 08:35 05/15/25 08:45 Temperature 98 F Pulse Rate 64 65 63 Respiratory Rate 16 17 13 Blood Pressure 109/64 109/64 100/64 Pulse Oximetry 99 96 98 Oxygen Delivery Room Air 05/15/25 08:58 05/15/25 09:00 05/15/25 09:16 Temperature Pulse Rate 72 66 62 Respiratory Rate 18 15 14 Blood Pressure 94/61 L 93/60 L 86/52 L Pulse Oximetry 97 97 94 Oxygen Delivery 05/15/25 09:29 05/15/25 09:33 05/15/25 09:36 Temperature Pulse Rate 63 64 67 Respiratory Rate 20 17 15 Blood Pressure 85/48 L 107/56 L 100/46 L Pulse Oximetry 95 Oxygen Delivery 05/15/25 10:16 05/15/25 10:46 05/15/25 11:00 Temperature Pulse Rate 68 67 72 Respiratory Rate 14 21 H 12 Blood Pressure 91/43 L 103/60 96/58 L Pulse Oximetry 94 94 92 Oxygen Delivery 05/15/25 11:16 05/15/25 11:30 05/15/25 11:46 Temperature Pulse Rate 73 67 66 Respiratory Rate 18 20 15 Blood Pressure 96/66 L 86/51 L 90/49 L Pulse Oximetry Oxygen Delivery 05/15/25 12:32 05/15/25 14:07 Temperature Pulse Rate 68 71 Respiratory Rate 14 14 Blood Pressure 88/61 L 128/75 Pulse Oximetry 99 Oxygen Delivery Exam Const: General: comfortable HENMT: Mouth: Yes dry mucous membranes Eyes: Sclera: sclerae normal Neck: Neck: supple Resp: Effort & Inspection: normal respiratory effort Auscultation: clear to auscultation bilaterally Cardio: Rate: regular rate Rhythm: regular rhythm GI: GI Palp: Yes Soft to palpation Auscultation: normal bowel sounds Skin: General skin exam: normal color Neuro: Speech: normal speech Extrem: General: normal to inspection Psych: Mental Status: mental status grossly normal Affect: normal affect H&P: Results Labs Labs: Short CBC 05/15/25 Range/Units 08:51 WBC 4.7 (4.5-10.0) K/mm3 Hgb 12.1 (12.0-15.0) g/dL Hct 38.4 (37.0-47.0) % Plt Count 191 (150-375) k/mm3 [facility] 05/15/25 08:51 Sodium 137 Potassium 2.9 L Chloride 107 Carbon Dioxide 20 L BUN 35 H Creatinine 2.21 H Glucose 84 Calcium 10.1 Liver Function 05/15/25 Range/Units 08:51 Total Bilirubin 0.5 (0.2-1.3) mg/dL AST 53 H (14-36) U/L ALT 23 (6-35) U/L Alkaline Phosphatase 102 (38-126) U/L Albumin 3.9 (3.5-5.1) g/dL Urine 05/15/ Range/Units 12:53 Urine Color Yellow (Yellow) Urine Appearance Cloudy H (Clear) Urine pH 5.0 (5.0-9.0) Ur Specific [place] 1.015 (1.001-1.035) Urine Protein 1+ H (Negative) mg/dL Urine Glucose (UA) Negative (Negative) mg/dL Assessment and Plan Assessment and plan (1) Antiplatelet or antithrombotic long-term use: Code(s): Z79.02 - FPC (current) use of antithrombotics/antiplatelets Status: Acute (2) Nausea and vomiting: Code(s): R11.2 - Nausea with vomiting, unspecified Status: Acute (3) History of colon resection: Code(s): Z90.49 - Acquired absence of other specified parts of digestive tract Status: Acute (4) Diarrhea: Code(s): R19.7 - Diarrhea, unspecified Status: Acute (5) BRBPR (bright red blood per rectum): Code(s): K62.5 - Hemorrhage of anus and rectum Status: Acute (6) ISRRAEL (acute kidney injury): Code(s): N17.9 - Acute kidney failure, unspecified Status: Acute (7) Hypokalemia: Code(s): E87.6 - Hypokalemia Status: Acute (8) Acute UTI: Code(s): N39.0 - Urinary tract infection, site not specified Status: Acute Plan 74-year-old female with past medical history of colon cancer, coronary artery disease presenting with diarrhea. 1. Acute diarrhea: Admit to telemetry medicine CT abdomen pelvis reviewed Continue with IV fluids Blood pressure was low in the ER, received 3 L of bolus fluid, received 1 dose of midodrine Supplement potassium for hypokalemia Recheck BMP in few hours Obtain C diff, stool culture, stool occult blood PPI IV daily GI consult given transient bright red blood per rectum also history of colon cancer, patient is on dual antiplatelet therapy for her cardiac stent Monitor H&H, hemoglobin stable at the moment 2. ISRRAEL on pre-existing CKD + hypokalemia: Secondary to ongoing diarrhea Hold antihypertensive agents Continue with IV fluids Recheck BMP in few hours Supplement potassium 3. Possible UTI: Started ceftriaxone Follow-up urine culture Obtain blood cultures as well 4. Await medication reconciliation 5. Code status: Full 6. DVT prophylaxis: SCDs for now 7. Disposition: Admit to [facility] VTE Prophylaxis VTE prophylaxis: mechanical ordered Hospitalist [facility] Advance Care Plan I have confirmed that the patient's Advanced Care Plan is present, code status is documented, or surrogate decision maker is listed in patient medical record.: Yes Medication Reconciliation I have utilized all available resources to obtain, update and review the patients current medications (includes all prescriptions, OTC, herbals, cannabis, and nutritional supplements).: Yes
[2025-05-15 14:40] LABS: Toxigenic C. Diff NEGATIVE (NEGATIVE)
--- NOTE | 2025-05-15 15:01 | WPCEDHO ---
ED Hand Off Checklist All vitals saved: yes IV Site documented: yes All med administrations documented: yes Triage Note Triage Note pt to ED w/ complaints of 05/15/25 08:33 weakness, N/V/D, and blood in her stool. pt states the weakness started on Tuesday and then yesterday she noticed bright red blood in her stool. 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 up operator (current) use of antithrombotics/antiplatelets (05/15/25) Acquired absence of other specified parts of digestive tract (05/15/25) Family History (Last Reviewed 05/15/25 @ 14:16 by Keturah Brothers MD) Father Family history of heart disease in male family member before age 55 Cancer, bladder, neck Active Medications including assessments/comments Sodium Chloride (Normal Saline Iv) 1,000 mls @ 100 mls/hr IV CONT .Q10H MURRAY Last Admin: 05/15/25 11:56 Dose: 200 mls/hr Documented By: TIGRE Infusion/Titration Document 05/15/25 11:56 TIGRE (Rec: 05/15/25 11:56 TIGRE [id number]) Intake IV Site Peripheral Access Right Wrist Container Volume 1,000 Waste Amount 0 Dosing Infusion Rate 200 Cumulative Dose Not Applicable Increase/Decrease Started Elapsed Time Elapsed Time ( 0m minutes) Potassium Chloride 40 meq/ (Sodium Chloride) 520 mls @ 130 mls/hr IVPB ONCE STA Stop: 05/15/25 15:44 Last Admin: 05/15/25 13:59 Dose: 130 mls/hr Documented By: IVONEW Infusion/Titration Document 05/15/25 13:59 KNW (Rec: 05/15/25 14:03 TIGRE [id number]) Intake IV Site Peripheral Access Right Wrist Container Volume 520 Waste Amount 0 Dosing Infusion Rate 130 Increase/Decrease Started Elapsed Time Elapsed Time ( 0m minutes) Pantoprazole Sodium (Pantoprazole Sodium Iv 40 Mg Vial) 40 mg IV PUSH QAM [facility] Last Admin: 05/15/25 13:58 Dose: 40 mg Documented By: TIGRE Administered/Completed Medications Discontinued Medications Sodium Chloride (Normal Saline Iv) Confirm Administered Dose 1,000 mls @ as directed .ROUTE .STK-MED ONE Stop: 05/15/25 09:04 Last Infusion: 05/15/25 09:37 Dose: Infused Documented By: Admin: 05/15/25 09:12 Dose: 999 mls/hr Documented By: TIGRE Potassium Chloride (Kcl 20 Meq/Sw 100 Ml) 100 mls @ 50 mls/hr IVPB ONCE STA Stop: 05/15/25 11:49 Last Infusion: 05/15/25 12:42 Dose: Infused Documented By: Admin: 05/15/25 10:42 Dose: 50 mls/hr Documented By: TIGRE Co-signed By: LEV Sodium Chloride (Normal Saline Iv) Confirm Administered Dose 500 mls @ as directed .ROUTE .STK-MED ONE Stop: 05/15/25 10:37 Last Infusion: 05/15/25 11:16 Dose: Infused Documented By: Admin: 05/15/25 10:45 Dose: 999 mls/hr Documented By: TIGRE Sodium Chloride (Normal Saline Iv) Confirm Administered Dose 500 mls @ as directed .ROUTE .STK-MED ONE Stop: 05/15/25 11:24 Last Admin: 05/15/25 11:28 Dose: Not Given Documented By: TIGRE Non-Admin Reason: Duplicate Dose Midodrine (Midodrine Hcl 2.5 Mg Tablet) 5 mg PO ONCE ONE Stop: 05/15/25 12:06 Last Admin: 05/15/25 12:37 Dose: 5 mg Documented By: TIGRE Potassium Chloride (Potassium Chloride 20 Meq Er Tablet) 40 meq PO ONCE STA Stop: 05/15/25 09:51 Last Admin: 05/15/25 10:39 Dose: 40 meq Documented By: TIGRE Notes 05/15/25 13:51 Nurse Note by Sarah Padilla this RN called Dr. Brothers and verified that they would like the second bag of potassium hung Initialized on 05/15/25 13:51 - END OF NOTE 05/15/25 09:38 Nurse Note by Sarah Padilla Dr. gave verbal order for 1L of NS Initialized on 05/15/25 09:38 - END OF NOTE Interventions/Assessments IV / Saline Lock, Insert Start: 05/15/25 08:23 Freq: Status: Active Protocol: Document 05/15/25 08:45 KNW (Rec: 05/15/25 09:10 KNW [id number]) IV Assessment Peripheral Access Right Wrist IV Catheter Access Initiated IV Insertion Date 05/15/25 IV Insertion Time 08:45 Catheter Gauge 18 IV Insertion 1 Attempts Ultrasound Used for No Placement IV Site Assessment WNL IV Care and WNL Maintenance PA: Gastrointestinal Assessment Start: 05/15/25 08:23 Freq: Status: Active Protocol: Document 05/15/25 09:08 KNW (Rec: 05/15/25 09:08 KNW [id number]) GI Assessment Gastrointestinal Blood in Stool,Diarrhea,Nausea,Vomiting Symptoms Description Tender All Quadrants Bowel Sounds Active Pattern Diarrhea Date of Last Bowel 05/15/25 Movement Nausea/Vomiting Assessment Nausea Frequency Intermittent Emesis Frequency Intermittent Last Vital Signs Temperature 98 F 05/15/25 08:33 Pulse Rate 68 05/15/25 14:46 Respiratory Rate 14 05/15/25 14:46 Pulse Oximetry 100 05/15/25 14:46 Blood Pressure 100/74 05/15/25 14:46 Blood Pressure Mean 81 05/15/25 14:46 Blood Pressure Position Sitting 05/15/25 14:07 Oxygen Delivery Room Air 05/15/25 08:33 Weight 80.6 kg 05/15/25 08:33 Last Result - Abnormals Only RBC 3.99 M/mm3 (4.2-5.4) L 05/15/25 08:51 MCHC 31.5 g/dl (32-36) L 05/15/25 08:51 RDW 14.7 % (11.5-14.5) H 05/15/25 08:51 Immature Gran % (Auto) 0.6 % (0-0.5) H 05/15/25 08:51 [place] % (Auto) 13.4 % (2.6-8.5) H 05/15/25 08:51 Potassium 2.9 mmol/L (3.4-5.0) L 05/15/25 08:51 Carbon Dioxide 20 mmol/L (22-30) L 05/15/25 08:51 BUN 35 mg/dL (7-17) H 05/15/25 08:51 Creatinine 2.21 mg/dL (0.7-1.0) H 05/15/25 08:51 Estimated GFR 22 (59-) L 05/15/25 08:51 AST 53 U/L (14-36) H 05/15/25 08:51 Urine Appearance Cloudy (Clear) H 05/15/25 12:53 Urine Protein 1+ mg/dL (Negative) H 05/15/25 12:53 Urine Nitrate Positive (Negative) H 05/15/25 12:53 Leukocyte Esterase Rfl 3+ ANDRAE/UL (Negative) H 05/15/25 12:53 Urine WBC >100 /hpf (0-3) H 05/15/25 12:53 Urine Bacteria 4+ /hpf H 05/15/25 12:53 Most Recent Suicide Severity Rating Suicide Severity Rating NO RISK INDICATED 05/15/25 08:33
[2025-05-15] MEDS: cefTRIAXone 1 GM in SODIUM CHLORIDE 0.9% IV 50 ML 100 ML IVPB (16:43)
[2025-05-15 17:48] LABS: IFOB Positive Control Positive; Immunochemical Fecal Occult Bl Negative (N)
--- NOTE | 2025-05-15 18:06 | ADMGEN ---
This patient, Hui Dominguez, was admitted to IMU Room 200-01 at 1555. Patient/family oriented to hospital policies and general routines including ID bracelet, bed and alarms, visiting hours, pain management, procedures, bathroom and other care routines, personal items, smoking policy, room service/diet, and visiting hours. Information on how to activate the Rapid Response Team has been discussed. Patient/Family are encouraged to report perceived risks to care and to ask questions if they do not understand what they are told or what they should do.
[2025-05-15 18:18] LABS: Anion Gap 8 mmol/L (4-12); Blood Urea Nitrogen 29 mg/dL (7-17); Calcium 9.0 mg/dL (8.4-10.2); Carbon Dioxide 15 mmol/L (22-30); Chloride 115 mmol/L (98-107); Estimated CRCL calculation 26 ml/min; Estimated Glomerular Filt Rate 29; Glucose 77 mg/dL (65-110); Magnesium 1.9 mg/dL (1.6-2.3); Potassium 4.7 mmol/L (3.4-5.0); Sodium 138 mmol/L (137-145)
--- NOTE | 2025-05-15 19:49 | WPDGICN ---
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 Given the chronic nature of the diarrhea, empiric antibiotics will be discontinued, and a stool culture and WBCwill be sent to rule out an acute infectious process. The minor bright rectal bleeding is not impacting her hemodynamic status or hemoglobin level and is most likely related to a perianal source (e.g., hemorrhoids) common in patients with chronic diarrhea; a diverticular bleed is considered less likely given the mild clinical presentation. To address the presumptive bile acid malabsorption, we will initiate a trial of cholestyramine, starting with a dose of 4 g BID, and closely monitor her clinical response. Of note, the patient also has a recently diagnosed history of chronic renal disease (s/p Nephrology evaluation last month ) which must be considered in her overall management Plan - Trial of cholestyramine 4 g biD GI Consult Note Consult date/time: 05/15/25 19:49 Reason for consult: rectal bleeding HPI: Ms. Hui Dominguez is a 74-year-old female with a history of Coronary Artery Disease and colon cancer status post (s/p) right hemicolectomy with ileocolonic anastomosis in 2019, s/p cholecystectomy. She presents to the ER due to the passage of small amounts of bright rectal bleeding associated with her chronic diarrhea; this was not accompanied by systemic symptoms like weakness or dizziness.She reports 8 to 10 loose bowel movements per day since her 2019 surgery. Extensive outpatient workup for this chronic diarrhea has been negative, including exclusion of pancreatic exocrine insufficiency and microscopic colitis (last colonoscopy in 05/2022 showed an intact anastomosis but negative biopsies). A trial of colestipol only provided partial control. Pertinent medical history also includes diverticulosis, with a prior episode of rectal bleeding three years ago.Admission Labs: Notable findings include : WBC 4.7, Hb 12.1, K 2.9, Creatinine 2.21 (later 1.71 with hydration) , BUN 35, AST 53, ALT 23. Review of Systems Review of Systems: All systems reviewed & are unremarkable except as noted in HPI and below PMFSH Past Medical History Medical History Gastroesophageal reflux Ventral hernia Cerebrovascular accident Irritable bowel syndrome with diarrhea Hyperlipidemia Hypertension Coronary artery disease Reported [place] in 1999. Colon cancer Surgical History Surgical History History of incisional hernia repair History of hysterectomy History of cholecystectomy History of appendectomy History of coronary artery stent placement History of colon resection Family History Family History Father Family history of heart disease in male family member before age 55 Cancer, bladder, neck Social History Social History Social History: Surrogate medical decision maker: Allan Dominguez, spouse. Code status: Full code. Smoking packs per day: 1 Smoking cigarettes per day: 20.0 Years smoked: 30 Smoking pack-years: 30.00 Smoking status: Former smoker Tobacco type: cigarettes Second hand tobacco smoke exposure: Yes Smoking end date: 05/15/19 Alcohol intake: never Substance use: never Substance use type: does not use Do You Feel Safe in your Home?: Yes Lack of Transportation: No Lack of Food: Never True Current Housing: I Have Housing Concerned About Future Housing: No Difficulty Paying Gas/Electric Bills: No Difficulty Paying for Meds: No Currently Unemployed: No Education: High School Diploma/GED Difficulty w/ Childcare or Family Care: No Living arrangements: with family Spiritual care concerns: No Agree to blood products: Yes Meds Home Medications and Allergies Home Medications ?Medication ?Instructions ?Recorded ?Confirmed ?Type furosemide 20 mg tablet (Lasix) 20 mg PO DAILY 07/13/19 05/15/25 History omeprazole 40 mg capsule,delayed 40 mg PO DAILY 07/13/19 05/15/25 History release allopurinol 300 mg tablet 300 mg PO DAILY 03/20/24 05/15/25 History coenzyme Q10 75 mg capsule (Ultra 75 mg PO DAILY 03/20/24 05/15/25 History CoQ10) cyclobenzaprine 10 mg tablet 10 mg PO HS 03/20/24 05/15/25 History melatonin 10 mg capsule 10 mg PO QHS 03/20/24 05/15/25 History potassium citrate 99 mg capsule 99 mg PO DAILY 03/20/24 05/15/25 History sour ruffin extract 1,000 mg 1,000 mg PO DAILY 03/20/24 05/15/25 History capsule (Tart Ruffin Extract) aspirin 81 mg tablet,delayed 81 mg PO HS 08/13/24 05/15/25 History release clopidogrel 75 mg tablet 75 mg PO HS 08/13/24 05/15/25 History metoprolol succinate 25 mg 12.5 mg PO HS 11/18/24 05/15/25 History tablet,extended release 24 hr Allergies Allergy/AdvReac Type Severity Reaction Status Date / Time fenofibrate Allergy Intermediate ITCHING, Verified 05/15/25 17:42 HIVES ciprofloxacin Allergy Unknown Unknown Verified 05/15/25 17:42 Penicillins Allergy Unknown Unknown Verified 05/15/25 17:42 Vital Signs Vital Signs - 24 hr 05/15/25 08:33 05/15/25 08:35 05/15/25 08:45 Temperature 98 F Pulse Rate 64 65 63 Respiratory Rate 16 17 13 Blood Pressure 109/64 109/64 100/64 Pulse Oximetry 99 96 98 Oxygen Delivery Room Air 05/15/25 08:58 05/15/25 09:00 05/15/25 09:16 Temperature Pulse Rate 72 66 62 Respiratory Rate 18 15 14 Blood Pressure 94/61 L 93/60 L 86/52 L Pulse Oximetry 97 97 94 Oxygen Delivery 05/15/25 09:29 05/15/25 09:33 05/15/25 09:36 Temperature Pulse Rate 63 64 67 Respiratory Rate 20 17 15 Blood Pressure 85/48 L 107/56 L 100/46 L Pulse Oximetry 95 Oxygen Delivery 05/15/25 10:16 05/15/25 10:46 05/15/25 11:00 Temperature Pulse Rate 68 67 72 Respiratory Rate 14 21 H 12 Blood Pressure 91/43 L 103/60 96/58 L Pulse Oximetry 94 94 92 Oxygen Delivery 05/15/25 11:16 05/15/25 11:30 05/15/25 11:46 Temperature Pulse Rate 73 67 66 Respiratory Rate 18 20 15 Blood Pressure 96/66 L 86/51 L 90/49 L Pulse Oximetry Oxygen Delivery 05/15/25 12:32 05/15/25 14:07 05/15/25 14:31 Temperature Pulse Rate 68 71 68 Respiratory Rate 14 14 22 H Blood Pressure 88/61 L 128/75 113/55 L Pulse Oximetry 99 100 Oxygen Delivery 05/15/25 14:46 05/15/25 18:00 05/15/25 19:35 Temperature 97.6 F Pulse Rate 68 72 77 Respiratory Rate 14 18 Blood Pressure 100/74 111/71 Pulse Oximetry 100 94 Oxygen Delivery Exam Const: General: cooperative and healthy appearing Resp: Effort & Inspection: normal respiratory effort and able to speak in complete sentences Auscultation: clear to auscultation bilaterally Cardio: Rate: regular rate Rhythm: regular rhythm GI: Inspection: normal to inspection GI Palp: No No hepatosplenomegaly present Auscultation: normal bowel sounds Rectal Exam: deferred Skin: General skin exam: normal color Psych: Appearance: grossly normal Mental Status: mental status grossly normal Results Labs 05/15/25 08:51 05/15/25 17:48 Labs: Short CBC 05/15/25 Range/Units 08:51 WBC 4.7 (4.5-10.0) K/mm3 Hgb 12.1 (12.0-15.0) g/dL Hct 38.4 (37.0-47.0) % Plt Count 191 (150-375) k/mm3 [facility] 05/15/25 05/15/25 08:51 17:48 Sodium 137 138 Potassium 2.9 L 4.7 Chloride 107 115 H Carbon Dioxide 20 L 15 L BUN 35 H 29 H Creatinine 2.21 H 1.71 H Glucose 84 77 Calcium 10.1 9.0 Liver Function 05/15/25 Range/Units 08:51 Total Bilirubin 0.5 (0.2-1.3) mg/dL AST 53 H (14-36) U/L ALT 23 (6-35) U/L Alkaline Phosphatase 102 (38-126) U/L Albumin 3.9 (3.5-5.1) g/dL Urine 05/15/25 Range/Units 12:53 Urine Color Yellow (Yellow) Urine Appearance Cloudy H (Clear) Urine pH 5.0 (5.0-9.0) Ur Specific [place] 1.015 (1.001-1.035) Urine Protein 1+ H (Negative) mg/dL Urine Glucose (UA) Negative (Negative) mg/dL
[2025-05-16] VITALS (13 sets, daily range): BP systolic 93–132; BP diastolic 44–67; PULSE 77–102; RESP 16–20; TEMP 36.3–37.4; O2SAT 94–100
[2025-05-16 04:25] LABS: Hematocrit 32.9 % (37.0-47.0); Hemoglobin 10.3 g/dL (12.0-15.0); Immature Granulocyte Percent A 0.5 % (0-0.5); Lymphocytes Absolute Auto 0.34 K/mm3 (0.9-3.2); Mean Corpuscular HGB Conc 31.3 g/dl (32-36); Mean Corpuscular Hemoglobin 31.2 pg (26-34); Mean Corpuscular Volume 99.7 fl (80-100); Nucleated Red Blood Cells Absolute Auto 0.000 K/mm3 (0.0-0.012); Nucleated Red Blood Cells Perc 0.0 % (0.0-0.2); Platelet Count Result 159 k/mm3 (150-375); Red Blood Count 3.30 M/mm3 (4.2-5.4); White Blood Count 5.6 K/mm3 (4.5-10.0)
[2025-05-16] MEDS: SODIUM CHLORIDE 0.9% IV 1,000 ML 100 ML IV CONT ×2 (04:38→14:40)
[2025-05-16 05:00] LABS: Anion Gap 9 mmol/L (4-12); Blood Urea Nitrogen 24 mg/dL (7-17); Calcium 9.3 mg/dL (8.4-10.2); Carbon Dioxide 12 mmol/L (22-30); Chloride 117 mmol/L (98-107); Estimated CRCL calculation 29 ml/min; Estimated Glomerular Filt Rate 32; Glucose 90 mg/dL (65-110); Potassium 4.4 mmol/L (3.4-5.0); Sodium 138 mmol/L (137-145)
[2025-05-16] MEDS: CHOLESTYRAMINE LIGHT 4 GM POWD.PACK PO ×2 (10:38→17:00)
--- NOTE | 2025-05-16 13:39 | P.PNIM_ITS ---
Progress Note: A&P Assessment and Plan (1) Antiplatelet or antithrombotic long-term use: Code(s): Z79.02 - custodial (current) use of antithrombotics/antiplatelets Status: Acute (2) Nausea and vomiting: Code(s): R11.2 - Nausea with vomiting, unspecified Status: Acute (3) History of colon resection: Code(s): Z90.49 - Acquired absence of other specified parts of digestive tract Status: Acute (4) Diarrhea: Code(s): R19.7 - Diarrhea, unspecified Status: Acute (5) BRBPR (bright red blood per rectum): Code(s): K62.5 - Hemorrhage of anus and rectum Status: Acute (6) ISRRAEL (acute kidney injury): Code(s): N17.9 - Acute kidney failure, unspecified Status: Acute (7) Hypokalemia: Code(s): E87.6 - Hypokalemia Status: Acute (8) Acute UTI: Code(s): N39.0 - Urinary tract infection, site not specified Status: Acute Plan 74-year-old female with past medical history of colon cancer, coronary artery disease presenting with diarrhea. 1. Acute diarrhea: Admit to telemetry medicine CT abdomen pelvis personally reviewed Continue with IV fluids Blood pressure was low in the ER, received 3 L of bolus fluid, received 1 dose of midodrine Supplement potassium for hypokalemia Recheck BMP in few hours Obtain C diff, stool culture, stool occult blood PPI IV daily GI consult given transient bright red blood per rectum also history of colon cancer, patient is on dual antiplatelet therapy for her cardiac stent Monitor H&H, hemoglobin stable at the moment 2. ISRRAEL on pre-existing CKD + hypokalemia: Secondary to ongoing diarrhea Hold antihypertensive agents Continue with IV fluids Recheck BMP in few hours Supplement potassium 3. Possible UTI: Asymptomatic Follow-up urine culture Obtain blood cultures as well 5. Code status: Full 6. DVT prophylaxis: SCDs for now Subjective Date/time seen: 05/16/25 13:39 Interval history: Patient was seen and examined at bedside. She is feeling better. Diarrhea i mproving. Had 2 bowel movement this morning. Reviewed solar development engineer notes. Has been started on cholestyramine Review of Systems Review of Systems: All systems reviewed & are unremarkable except as noted in HPI and below Exam Const: General: comfortable HENMT: Mouth: Yes dry mucous membranes Eyes: Sclera: sclerae normal Neck: Neck: supple Resp: Effort & Inspection: normal respiratory effort Auscultation: clear to auscultation bilaterally Cardio: Rate: regular rate Rhythm: regular rhythm GI: Auscultation: normal bowel sounds Skin: General skin exam: normal color Neuro: Speech: normal speech Extrem: General: normal to inspection Psych: Mental Status: mental status grossly normal Affect: normal affect Objective Data Vital Signs Vital Signs: Vital Signs - 24 hr 05/15/25 14:07 05/15/25 14:31 05/15/25 14:46 Temperature Pulse Rate 71 68 68 Respiratory Rate 14 22 H 14 Blood Pressure 128/75 113/55 L 100/74 Pulse Oximetry 99 100 100 Oxygen Delivery 05/15/25 18:00 05/15/25 19:35 05/15/25 20:00 Temperature 97.6 F Pulse Rate 72 77 71 Respiratory Rate 18 Blood Pressure 111/71 Pulse Oximetry 94 Oxygen Delivery 05/15/25 22:00 05/15/25 23:15 05/16/25 00:00 Temperature 97.7 F Pulse Rate 87 103 H 100 Respiratory Rate 18 Blood Pressure 134/81 Pulse Oximetry 95 Oxygen Delivery 05/16/25 02:00 05/16/25 03:44 05/16/25 04:00 Temperature 98.7 F Pulse Rate 97 89 102 H Respiratory Rate 16 Blood Pressure 118/61 Pulse Oximetry 97 Oxygen Delivery 05/16/25 06:00 05/16/25 08:00 05/16/25 08:00 Temperature 99.3 F Pulse Rate 90 95 Respiratory Rate 16 Blood Pressure 93/44 L Pulse Oximetry 98 Oxygen Delivery Room Air 05/16/25 08:00 05/16/25 10:00 05/16/25 11:26 Temperature Pulse Rate 93 77 Respiratory Rate Blood Pressure Pulse Oximetry Oxygen Delivery Room Air 05/16/25 11:52 05/16/25 12:00 Temperature 97.8 F Pulse Rate 87 81 Respiratory Rate 20 Blood Pressure 102/48 L Pulse Oximetry 96 Oxygen Delivery Intake/Output Intake/Output: Intake & Output 05/13/25 05/14/25 05/15/25 05/16/25 23:59 23:59 23:59 23:59 Intake Total 2906.7 1453.3 Balance 2906.7 1453.3 Meds/Results Medications: Active Medications Generic Name Dose Route Start Last Admin Trade Name Freq PRN Reason Stop Dose Admin Cholestyramine Resin 4 gm 05/16/25 10:00 05/16/25 10:38 Cholestyramine Light 4 Gm Powd.Pack PO 4 gm BID@1000,1800 MURRAY Administration Sodium Chloride 1,000 mls @ 100 mls/hr 05/15/25 11:45 05/16/25 04:38 Normal Saline Iv IV CONT 100 mls/hr .Q10H MURRAY Administration Metronidazole 500 mg 05/15/25 22:00 05/16/25 05:36 Metronidazole 500 Mg Tablet PO 500 mg Q8HR MURRAY Administration Ondansetron HCl 4 mg 05/15/25 11:42 Ondansetron Inj 4 Mg/2 Ml Vial IV PUSH Q4H PRN Nausea Radiology Results: ITS Impressions Abdomen/Pelvis CT 05/15/25 09:50 IMPRESSION: 1. Fluid throughout the large and small bowel consistent with nonspecific diarrhea. No other acute intra-abdominal/pelvic process. 2. Large ventral hernia containing nonobstructed large and small bowel. 3. Mild diverticulosis with some retained high attenuation material within several diverticula including a possible small metallic foreign body within a diverticulum at the proximal sigmoid colon. Labs Labs: Laboratory Results - last 24 hr 05/15/25 05/15/25 05/15/25 12:53 13:43 17:48 WBC RBC Hgb Hct MCV MCH MCHC RDW Plt Count MPV Immature Gran % (Auto) Neut % (Auto) Lymph % (Auto) [place] % (Auto) Eos % (Auto) Baso % (Auto) Lymph # (Auto) [place] # (Auto) Eos # (Auto) Baso # (Auto) Abs Immat Gran (auto) Absolute Neuts (auto) Absolute Nucleated RBC Nucleated RBC % Sodium 138 Potassium 4.7 Chloride 115 H Carbon Dioxide 15 L Anion Gap 8 BUN 29 H Creatinine 1.71 H Estim Creat Clear Calc 26 Estimated GFR 29 L Glucose 77 Calcium 9.0 Magnesium 1.9 Urine Color Yellow Urine Appearance Cloudy H Urine pH 5.0 Ur Specific [place] 1.015 Urine Protein 1+ H Urine Glucose (UA) Negative Urine Ketones Negative Ur Blood (Man) Trace Urine Nitrate Positive H Urine Bilirubin Negative Urine Urobilinogen 0.2 Add Ur Microanalysis Reviewed Leukocyte Esterase Rfl 3+ H Urine RBC 0-2 Urine WBC >100 H Ur Squamous Epith Cells Few Urine Bacteria 4+ H Urine Casts >20 Hyaline Casts Present Stl Occult Blood (IFOB) Negative C. difficile (PCR) Negative 05/16/25 03:43 WBC 5.6 RBC 3.30 L Hgb 10.3 L Hct 32.9 L MCV 99.7 MCH 31.2 MCHC 31.3 L RDW 14.9 H Plt Count 159 MPV 10.3 Immature Gran % (Auto) 0.5 Neut % (Auto) 86.7 H Lymph % (Auto) 6.1 L [place] % (Auto) 4.9 Eos % (Auto) 1.6 Baso % (Auto) 0.2 Lymph # (Auto) 0.34 L [place] # (Auto) 0.3 Eos # (Auto) 0.1 Baso # (Auto) 0.0 Abs Immat Gran (auto) 0.03 Absolute Neuts (auto) 4.8 Absolute Nucleated RBC 0.000 Nucleated RBC % 0.0 Sodium 138 Potassium 4.4 Chloride 117 H Carbon Dioxide 12 L Anion Gap 9 BUN 24 H Creatinine 1.57 H Estim Creat Clear Calc 29 Estimated GFR 32 L Glucose 90 Calcium 9.3 Magnesium Urine Color Urine Appearance Urine pH Ur Specific [place] Urine Protein Urine Glucose (UA) Urine Ketones Ur Blood (Man) Urine Nitrate Urine Bilirubin Urine Urobilinogen Add Ur Microanalysis Leukocyte Esterase Rfl Urine RBC Urine WBC Ur Squamous Epith Cells Urine Bacteria Urine Casts Hyaline Casts Stl Occult Blood (IFOB) C. difficile (PCR) Quality VTE Prophylaxis VTE prophylaxis: mechanical ordered
--- NOTE | 2025-05-16 17:19 | WPDGIPROGNO ---
Progress Note: A&P Assessment and Plan (1) Diarrhea: Code(s): R19.7 - Diarrhea, unspecified Status: Acute Assessment and Plan: Patient with presumed bile salt induced diarrhea given her anatomy of post ileocolonic resection with lack of ileocecal valve and cholecystectomy. Apparently responding to her 1st dose of cholestyramine. We will continue to follow her and if there is marked improvement, she can be discharged home on cholestyramine 4 g b.i.d. and follow-up with us as an outpatient. Subjective Date/time seen: 05/16/25 17:19 Interval history: The patient received her 1st dose of cholestyramine 4 g this morning. She had only 1 bowel movement, recognizing some solid parts, and states this is a marked improvement. Objective Data Vital Signs Vital Signs: Vital Signs - 24 hr 05/15/25 18:00 05/15/25 19:35 05/15/25 20:00 Temperature 97.6 F Pulse Rate 72 77 71 Respiratory Rate 18 Blood Pressure 111/71 Pulse Oximetry 94 Oxygen Delivery 05/15/25 22:00 05/15/25 23:15 05/16/25 00:00 Temperature 97.7 F Pulse Rate 87 103 H 100 Respiratory Rate 18 Blood Pressure 134/81 Pulse Oximetry 95 Oxygen Delivery 05/16/25 02:00 05/16/25 03:44 05/16/25 04:00 Temperature 98.7 F Pulse Rate 97 89 102 H Respiratory Rate 16 Blood Pressure 118/61 Pulse Oximetry 97 Oxygen Delivery 05/16/25 06:00 05/16/25 08:00 05/16/25 08:00 Temperature 99.3 F Pulse Rate 90 95 Respiratory Rate 16 Blood Pressure 93/44 L Pulse Oximetry 98 Oxygen Delivery Room Air 05/16/25 08:00 05/16/25 10:00 05/16/25 11:26 Temperature Pulse Rate 93 77 Respiratory Rate Blood Pressure Pulse Oximetry Oxygen Delivery Room Air 05/16/25 11:52 05/16/25 12:00 05/16/25 14:00 Temperature 97.8 F Pulse Rate 87 81 80 Respiratory Rate 20 Blood Pressure 102/48 L Pulse Oximetry 96 Oxygen Delivery 05/16/25 16:00 05/16/25 16:00 05/16/25 16:00 Temperature 97.3 F L Pulse Rate 84 84 Respiratory Rate 16 Blood Pressure 125/58 L Pulse Oximetry 94 Oxygen Delivery Room Air Intake/Output Intake/Output: Intake & Output 05/13/25 05/14/25 05/15/25 05/16/25 23:59 23:59 23:59 23:59 Intake Total 2906.7 2453.3 Balance 2906.7 2453.3 Meds/Results Medications: Active Medications Generic Name Dose Route Start Last Admin Trade Name Freq PRN Reason Stop Dose Admin Aspirin 81 mg 05/16/25 21:00 Aspirin 81 Mg Enteric Tablet PO HS MURRAY Cholestyramine Resin 4 gm 05/16/25 10:00 05/16/25 17:00 Cholestyramine Light 4 Gm Powd.Pack PO 4 gm BID@1000,1800 MURRAY Administration Clopidogrel Bisulfate 75 mg 05/16/25 21:00 Clopidogrel Bisulfate 75 Mg Tablet PO HS MURRAY Cyclobenzaprine HCl 10 mg 05/16/25 21:00 Cyclobenzaprine Hcl 10 Mg Tablet PO HS MURRAY Sodium Chloride 1,000 mls @ 100 mls/hr 05/15/25 11:45 05/16/25 14:40 Normal Saline Iv IV CONT 100 mls/hr .Q10H MURRAY Administration Metronidazole 500 mg 05/15/25 22:00 05/16/25 14:40 Metronidazole 500 Mg Tablet PO 500 mg Q8HR MURRAY Administration Ondansetron HCl 4 mg 05/15/25 11:42 Ondansetron Inj 4 Mg/2 Ml Vial IV PUSH Q4H PRN Nausea Radiology Results: ITS Impressions Abdomen/Pelvis CT 05/15/25 09:50 IMPRESSION: 1. Fluid throughout the large and small bowel consistent with nonspecific diarrhea. No other acute intra-abdominal/pelvic process. 2. Large ventral hernia containing nonobstructed large and small bowel. 3. Mild diverticulosis with some retained high attenuation material within several diverticula including a possible small metallic foreign body within a diverticulum at the proximal sigmoid colon. Labs Labs: Laboratory Results - last 24 hr 05/15/25 05/15/25 05/16/25 13:43 17:48 03:43 WBC 5.6 RBC 3.30 L Hgb 10.3 L Hct 32.9 L MCV 99.7 MCH 31.2 MCHC 31.3 L RDW 14.9 H Plt Count 159 MPV 10.3 Immature Gran % (Auto) 0.5 Neut % (Auto) 86.7 H Lymph % (Auto) 6.1 L [place] % (Auto) 4.9 Eos % (Auto) 1.6 Baso % (Auto) 0.2 Lymph # (Auto) 0.34 L [place] # (Auto) 0.3 Eos # (Auto) 0.1 Baso # (Auto) 0.0 Abs Immat Gran (auto) 0.03 Absolute Neuts (auto) 4.8 Absolute Nucleated RBC 0.000 Nucleated RBC % 0.0 Sodium 138 138 Potassium 4.7 4.4 Chloride 115 H 117 H Carbon Dioxide 15 L 12 L Anion Gap 8 9 BUN 29 H 24 H Creatinine 1.71 H 1.57 H Estim Creat Clear Calc 26 29 Estimated GFR 29 L 32 L Glucose 77 90 Calcium 9.0 9.3 Magnesium 1.9 Stl Occult Blood (IFOB) Negative
[2025-05-16] MEDS: CYCLOBENZAPRINE HCL 10 MG TABLET PO (21:06)
[2025-05-16] MEDS: CLOPIDOGREL BISULFATE 75 MG TABLET PO (21:06)
[2025-05-16] MEDS: ASPIRIN 81 MG ENTERIC TABLET PO (21:07)
--- NOTE | 2025-05-16 22:15 | PC.NURSE ---
This patient, Hui Dominguez, was transferred to [facility] on 05/16/25 at 2234 via bed with two techs and one RN, and no issues. Personal belongings sent with patient. Report given to Elizabeth FORBES. Appropriate documentation sent with patient.
[2025-05-17 04:00] VITALS: BP 149/78; PULSE 94; RESP 20; TEMP 36.6; O2SAT 100
[2025-05-17 05:33] LABS: Hematocrit 32.7 % (37.0-47.0); Hemoglobin 10.1 g/dL (12.0-15.0); Immature Granulocyte Percent A 0.2 % (0-0.5); Lymphocytes Absolute Auto 0.80 K/mm3 (0.9-3.2); Mean Corpuscular HGB Conc 30.9 g/dl (32-36); Mean Corpuscular Hemoglobin 30.3 pg (26-34); Mean Corpuscular Volume 98.2 fl (80-100); Nucleated Red Blood Cells Absolute Auto 0.000 K/mm3 (0.0-0.012); Nucleated Red Blood Cells Perc 0.0 % (0.0-0.2); Platelet Count Result 158 k/mm3 (150-375); Red Blood Count 3.33 M/mm3 (4.2-5.4); White Blood Count 5.2 K/mm3 (4.5-10.0)
[2025-05-17 05:53] LABS: Anion Gap 5 mmol/L (4-12); Blood Urea Nitrogen 16 mg/dL (7-17); Calcium 9.6 mg/dL (8.4-10.2); Carbon Dioxide 17 mmol/L (22-30); Chloride 116 mmol/L (98-107); Estimated CRCL calculation 35 ml/min; Estimated Glomerular Filt Rate 40; Glucose 88 mg/dL (65-110); Potassium 3.8 mmol/L (3.4-5.0); Sodium 138 mmol/L (137-145)
--- NOTE | 2025-05-17 07:19 | WPDGIPROGNO ---
Progress Note: A&P Assessment and Plan (1) Diarrhea: Code(s): R19.7 - Diarrhea, unspecified Status: Acute Assessment and Plan: The patient has bile salt induced diarrhea secondary to her status post hemicolectomy and cholecystectomy. She is responding well to cholestyramine 4 g b.i.d.. The patient can be discharged home today on the same dose, and follow up with GI clinic in 2 or 3 weeks. Plan - d/c home on Cholestyramine 4 g bid - GI clinic 2-3 weeks. Subjective Date/time seen: 05/17/25 07:19 Interval history: The patient is had 1 semi solid bowel movement last night, no abdominal pain no further diarrhea. Objective Data Vital Signs Vital Signs: Vital Signs - 24 hr 05/16/25 08:00 05/16/25 08:00 05/16/25 08:00 Temperature 99.3 F Pulse Rate 95 93 Respiratory Rate 16 Blood Pressure 93/44 L Pulse Oximetry 98 Oxygen Delivery Room Air 05/16/25 10:00 05/16/25 11:26 05/16/25 11:52 Temperature 97.8 F Pulse Rate 77 87 Respiratory Rate 20 Blood Pressure 102/48 L Pulse Oximetry 96 Oxygen Delivery Room Air 05/16/25 12:00 05/16/25 14:00 05/16/25 16:00 Temperature 97.3 F L Pulse Rate 81 80 84 Respiratory Rate 16 Blood Pressure 125/58 L Pulse Oximetry 94 Oxygen Delivery 05/16/25 16:00 05/16/25 16:00 05/16/25 18:00 Temperature Pulse Rate 84 84 Respiratory Rate Blood Pressure Pulse Oximetry Oxygen Delivery Room Air 05/16/25 20:00 05/16/25 20:00 05/17/25 04:00 Temperature 97.6 F 97.9 F Pulse Rate 82 94 Respiratory Rate 16 20 Blood Pressure 132/67 149/78 H Pulse Oximetry 100 100 Oxygen Delivery Room Air Intake/Output Intake/Output: Intake & Output 05/14/25 05/15/25 05/16/25 05/17/25 23:59 23:59 23:59 23:59 Intake Total 2906.7 3338.3 350 Balance 2906.7 3338.3 350 Meds/Results Medications: Active Medications Generic Name Dose Route Start Last Admin Trade Name Freq PRN Reason Stop Dose Admin Aspirin 81 mg 05/16/25:00 05/16/25 21:07 Aspirin 81 Mg Enteric Tablet PO 81 mg HS MURRAY Administration Cholestyramine Resin 4 gm 05/16/25 10:00 05/16/25 17:00 Cholestyramine Light 4 Gm Powd.Pack PO 4 gm BID@1000,1800 MURRAY Administration Clopidogrel Bisulfate 75 mg 05/16/25 21:00 05/16/25 21:06 Clopidogrel Bisulfate 75 Mg Tablet PO 75 mg HS MURRAY Administration Cyclobenzaprine HCl 10 mg 05/16/25 21:00 05/16/25 21:06 Cyclobenzaprine Hcl 10 Mg Tablet PO 10 mg HS MURRAY Administration Ondansetron HCl 4 mg 05/15/25 11:42 Ondansetron Inj 4 Mg/2 Ml Vial IV PUSH Q4H PRN Nausea Radiology Results: ITS Impressions Abdomen/Pelvis CT 05/15/25 09:50 IMPRESSION: 1. Fluid throughout the large and small bowel consistent with nonspecific diarrhea. No other acute intra-abdominal/pelvic process. 2. Large ventral hernia containing nonobstructed large and small bowel. 3. Mild diverticulosis with some retained high attenuation material within several diverticula including a possible small metallic foreign body within a diverticulum at the proximal sigmoid colon. Labs Labs: Laboratory Results - last 24 hr 05/17/25 05:14 WBC 5.2 RBC 3.33 L Hgb 10.1 L Hct 32.7 L MCV 98.2 MCH 30.3 MCHC 30.9 L RDW 14.8 H Plt Count 158 MPV 9.7 Immature Gran % (Auto) 0.2 Neut % (Auto) 70.5 Lymph % (Auto) 15.4 L [place] % (Auto) 7.9 Eos % (Auto) 5.8 H Baso % (Auto) 0.2 Lymph # (Auto) 0.80 L [place] # (Auto) 0.4 Eos # (Auto) 0.3 Baso # (Auto) 0.0 Abs Immat Gran (auto) 0.01 Absolute Neuts (auto) 3.7 Absolute Nucleated RBC 0.000 Nucleated RBC % 0.0 Sodium 138 Potassium 3.8 Chloride 116 H Carbon Dioxide 17 L Anion Gap 5 BUN 16 Creatinine 1.29 H Estim Creat Clear Calc 35 Estimated GFR 40 L Glucose 88 Calcium 9.6
[2025-05-17 08:28] VITALS: BP 126/67; PULSE 91; RESP 16; TEMP 36.3; O2SAT 98
--- NOTE | 2025-05-17 09:01 | P.DS_ITS ---
DS: Admitting Diagnosis Discharge Date 05/17/2025 Admitting Diagnosis Diarrhea/ UTI/ hypokalemia/ bile salt induced diarrhea DS: Discharge Diagnosis Discharge Diagnosis (1) Antiplatelet or antithrombotic long-term use: Code(s): Z79.02 - tank terminal gauger (current) use of antithrombotics/antiplatelets Status: Acute (2) Nausea and vomiting: Code(s): R11.2 - Nausea with vomiting, unspecified Status: Acute (3) History of colon resection: Code(s): Z90.49 - Acquired absence of other specified parts of digestive tract Status: Acute (4) Diarrhea: Code(s): R19.7 - Diarrhea, unspecified Status: Acute (5) BRBPR (bright red blood per rectum): Code(s): K62.5 - Hemorrhage of anus and rectum Status: Acute (6) ISRRAEL (acute kidney injury): Code(s): N17.9 - Acute kidney failure, unspecified Status: Acute (7) Hypokalemia: Code(s): E87.6 - Hypokalemia Status: Acute (8) Acute UTI: Code(s): N39.0 - Urinary tract infection, site not specified Status: Acute DS: Summary Hospital Course Reason for hospitalization: Diarrhea/ UTI/ hypokalemia/ bile salt induced diarrhea Hospital Course: Admission: Patient was a 74-year-old female with past medical history of coronary artery disease, colon cancer presented with 4 days of ongoing diarrhea. She started having diarrhea 4 days ago, denies any stool softener use, denies any antibiotic use. Ongoing diarrhea was associated with decreased appetite, lethargy. She was unable to ambulate in her house. Feeling very dizzy, lightheaded. Unable to keep anything down due to severely decreased appetite. Denies any abdominal pain.She has history of colon cancer in the past. She had 1 day of bright red blood per rectum with stool(several episodes). Currently she is having brown-colored liquid stools. In the Ed: CT abdomen pelvis shows Fluid throughout the large and small bowel consistent with nonspecific diarrhea. No other acute intra-abdominal/pelvic process. Large ventral hernia containing nonobstructed large and small bowel. Mild diverticulosis with some retained high attenuation material within several diverticula including a possible small metallic foreign body within a diverticulum at the proximal sigmoid colon. Hospital Course: Acute diarrhea: Patient admitted to the medical unit Continued with IV fluids and GI consulted. Blood pressure was low in the ER, received 3 L of bolus fluid, received 1 dose of midodrine. Supplement potassium was given for patient for her hypokalemia. Obtained C diff, stool culture, stool occult blood all negative and started on a PPI. GI consult given transient bright red blood per rectum also history of colon cancer, patient is on dual antiplatelet therapy for her cardiac stent Continued to monitor H&H, hemoglobin remained stable. ISRRAEL on pre-existing CKD + hypokalemia secondary to ongoing diarrhea so antihypertensive agents were held. Possible UTI but asymptomatic Follow-up urine culture and blood cultures obtained negative. Per GI: Patient with presumed bile salt induced diarrhea given her anatomy of post ileocolonic resection with lack of ileocecal valve and cholecystectomy. Apparently responding to her 1st dose of cholestyramine. We will continue to follow her and if there is marked improvement, she can be discharged home on cholestyramine 4 g b.i.d. and follow-up with us as an outpatient. Patient seen and assessed at time of discharge with overall improvement to symptoms tolerating oral intake and diarrhea improved. Patient discharged to home with new medication and plan for follow-up with GI. Status at Discharge Functional status at discharge: independent ambulation Overall status at discharge: patient is progressing back to baseline Time Spent with Patient Time attestation: Total time spent providing and/or coordinating discharge services: Time spent: Less than 30 minutes Exam Const: General: comfortable HENMT: Mouth: Yes dry mucous membranes Eyes: Sclera: sclerae normal Neck: Neck: supple Resp: Effort & Inspection: normal respiratory effort Auscultation: clear to auscultation bilaterally Cardio: Rate: regular rate Rhythm: regular rhythm GI: Auscultation: normal bowel sounds Skin: General skin exam: normal color Neuro: Speech: normal speech Extrem: General: normal to inspection Psych: Mental Status: mental status grossly normal Affect: normal affect DS: Data Data Completed and Pending Labs on day of discharge: Labs from last 24 hours 05/17/25 05:14 WBC 5.2 RBC 3.33 L Hgb 10.1 L Hct 32.7 L MCV 98.2 MCH 30.3 MCHC 30.9 L RDW 14.8 H Plt Count 158 MPV 9.7 Immature Gran % (Auto) 0.2 Neut % (Auto) 70.5 Lymph % (Auto) 15.4 L [place] % (Auto) 7.9 Eos % (Auto) 5.8 H Baso % (Auto) 0.2 Lymph # (Auto) 0.80 L [place] # (Auto) 0.4 Eos # (Auto) 0.3 Baso # (Auto) 0.0 Abs Immat Gran (auto) 0.01 Absolute Neuts (auto) 3.7 Absolute Nucleated RBC 0.000 Nucleated RBC % 0.0 Sodium 138 Potassium 3.8 Chloride 116 H Carbon Dioxide 17 L Anion Gap 5 BUN 16 Creatinine 1.29 H Estim Creat Clear Calc 35 Estimated GFR 40 L Glucose 88 Calcium 9.6 Imaging Radiologist's impression: Radiology Results: ITS Impressions Abdomen/Pelvis CT 05/15/25 09:50 IMPRESSION: 1. Fluid throughout the large and small bowel consistent with nonspecific diarrhea. No other acute intra-abdominal/pelvic process. 2. Large ventral hernia containing nonobstructed large and small bowel. 3. Mild diverticulosis with some retained high attenuation material within several diverticula including a possible small metallic foreign body within a diverticulum at the proximal sigmoid colon. Discharge Plan Discharge Attending physician on discharge: Dylon iLcona Consulting providers: Emily Sharp; Claudia Estes Discharging Clinician: Claudia Estes Anticipated Discharge Date/Time: 05/17/25 09:04 Patient Disposition: Home Activity: may shower and as tolerated Diet: as tolerated Discharge Instructions: 1). Diarrhea * I have prescribed Cholestyramine 4g twice a day please take as prescribed even if feeling better * Follow-up with Dr. Lopez in the GI clinic in 2-3 weeks How can you care for yourself at home? ? Keep track of any new symptoms or changes in your symptoms. ? Rest until you feel better. ? Be safe with medicines. Take your medicines exactly as prescribed. Call your doctor if you think you are having a problem with your medicine. ? Do not drive after taking a prescription pain medicine. ? Ensure to follow-up with primary care physician as indicated and provide updated medication list provided to you at discharge. When should you call for help? Call 911 anytime you think you may need emergency care. For example, call if: ? You passed out (lost consciousness). Call your doctor now or seek immediate medical care if: ? You have new symptoms like fever, difficulty breathing, Chest pain, vomiting, or rash. ? You have new or different pain. ? You are confused and are having trouble thinking clearly. ? Your symptoms are getting worse. Watch closely for changes in your health, and be sure to contact your doctor if: ? You do not get better as expected. Patient Instructions: Antibiotic Form, Acute Diarrhea (GEN) Patient Language: Korean Stand Alone Forms: General Discharge Information Follow-up/Referrals: Mal Lopez MD [Physician, Gastroenterology] - 3 Weeks Referral Note: F/U in 2-3 weeks Discharge Medications: New Prevalite 4 gram Powder In Packet 4 g PO BID@1000,1800 Qty: 60 0RF Continued allopurinol 300 mg tablet 300 mg PO DAILY melatonin 10 mg capsule 10 mg PO QHS cyclobenzaprine 10 mg tablet 10 mg PO HS potassium citrate 99 mg capsule 99 mg PO DAILY Tart Ruffin Extract 1,000 mg capsule 1,000 mg PO DAILY Ultra CoQ10 75 mg capsule 75 mg PO DAILY aspirin 81 mg tablet,delayed release (DR/EC) 81 mg PO HS clopidogrel 75 mg tablet 75 mg PO HS omeprazole 40 mg capsule,delayed release(DR/EC) 40 mg PO DAILY furosemide [Lasix] 20 mg tablet 20 mg PO DAILY metoprolol succinate 25 mg tablet extended release 24 hr 12.5 mg PO HS Date of admission: 05/16/25 10:20 Primary Care Provider: LisandraDevyn Admitting Provider: Dylon Licona Attending physician on admission: Monae,Dylon Condition: Stable Quality VTE Prophylaxis VTE prophylaxis: mechanical ordered -Patient's previous records reviewed on admission -ER notes reviewed in detail on admission -discussed all findings and current treatment plan with patient/Family/POA -Consultations reviewed for recommendations -Patient's disposition for safe discharge discussed with case operator -radiology imaging, EKG and test results I have personally reviewed and interpreted unless otherwise specified Dictation performed by [employer] direct speech recognition software, therefore director sports variants and typographical errors may occur. Hospitalist MIPS Heart Failure (Exclusion) Patient has history of Heart Transplant or Left Ventricular Assistive Device?: No IF YES, STOP HERE Heart Failure (Qualifier) Patient has current or prior documentation of LVEF less than or equal to 40%, or mod/servere depressed LVSF?: No IF NO, STOP HERE
[2025-05-17] MEDS: CHOLESTYRAMINE LIGHT 4 GM POWD.PACK PO (10:45)
== END 2025-05-17 11:37 | disposition home or self-care (01) | DRG 392 ==
LOC: ANHED 11:41 → ANHIMU 16:13 → ANH2MED 05-16 23:50
PROVIDERS: Internal Medicine; Admitting Provider Internal Medicine; Emergency Provider Emergency Medicine; PCP Family Medicine; Visit Provider Nurse Practitioner Family
DX: K90.89 Other intestinal malabsorption (principal); N17.9 Acute kidney failure, unspecified; N39.0 Urinary tract infection, site not specified; K62.5 Hemorrhage of anus and rectum; E87.6 Hypokalemia; I12.9 Hypertensive chronic kidney disease with stage 1 through stage 4 chronic kidney disease, or unspecified chronic kidney disease; I25.10 Atherosclerotic heart disease of native coronary artery without angina pectoris; N18.9 Chronic kidney disease, unspecified; E86.0 Dehydration; E78.5 Hyperlipidemia, unspecified; K21.9 Gastro-esophageal reflux disease without esophagitis; K58.0 Irritable bowel syndrome with diarrhea; K43.9 Ventral hernia without obstruction or gangrene; I25.2 Old myocardial infarction; Z79.82 Long term (current) use of aspirin; Z79.02 Long term (current) use of antithrombotics/antiplatelets; Z86.73 Personal history of transient ischemic attack (TIA), and cerebral infarction without residual deficits; Z85.038 Personal history of other malignant neoplasm of large intestine; Z95.5 Presence of coronary angioplasty implant and graft; Z87.891 Personal history of nicotine dependence; Z90.49 Acquired absence of other specified parts of digestive tract
CPT/HCPCS: 36415; 74176; 80048; 80053; 81001; 82274; 83690; 83735; 85025; 85610; 85730; 86850; 86900; 86901; 87040; 87045; 87046; 87086; 87186; 87427; 87493; 89055; 96361; 96374; 99285; A9270; G0378; J0696; J2470; J3480; J7030; J7040

== ENCOUNTER 2025-06-10 01:25 | Inpatient (IN) | payer MEDICARE, OTHER, SELFPAY ==
[2025-06-10] VITALS (14 sets, daily range): BP systolic 102–157; BP diastolic 55–90; PULSE 68–110; RESP 15–20; TEMP 36.4–37.3; O2SAT 91–100; BMI 32.5; BMI 33.7
--- NOTE | ~2025-06-10 | XR_ITS ---
EXAMINATION: XR shoulder LT min 2V, 06/10/2025 12:29 CIVIL ESTIMATOR HISTORY: left shoulder pain after fall 2 days ago COMPARISON: No comparisons available. Findings: No acute fracture or malalignment. Moderate degenerative changes with underlying rotator cuff injury suspected Soft tissues unremarkable. Impression: No acute fracture or malalignment. Reviewed, dictated and finalized at location P. L ESTIMATOR Impression: No acute fracture or malalignment.
--- NOTE | ~2025-06-10 | CT_ITS ---
CT HEAD NON-CONTRAST Clinical History: Frequent falls Comparison: 08/13/2024 Technique: Unenhanced axial images skull base to vertex Coronal, sagittal reformats CT images acquired with automatic exposure control for dose reduction DLP: 605 mGy-cm Findings: Focal chronic encephalomalacia left occipital lobe. Chronic white matter microvascular ischemic changes. Basal ganglia lacunae. Sulci, ventricles: Unremarkable. No intracerebral hemorrhage. No evidence acute territorial infarct. No mass effect, midline shift. Bony calvarium intact. Visualized paranasal sinuses: Clear. Mastoid air cells: Clear. IMPRESSION: 1. No acute intracranial findings. Reviewed, dictated and finalized at location R. SIONAL CAREGIVER
--- NOTE | ~2025-06-10 | CT_ITS ---
CT abdomen pelvis w con Clinical History: gi bleed . Comparison: 05/15/2025 Technique: Axial images lung bases to symphysis pubis 100 mL Omnipaque 350 Coronal, sagittal reformats CT images acquired with automatic exposure control for dose reduction DLP: 1165 mGy-cm Findings: Lung bases: Paraseptal emphysema. Visualized heart and pericardium: Unremarkable. Liver: Steatosis. Gallbladder: Removed. Spleen: Unremarkable. Pancreas: Unremarkable. Adrenal glands: Unremarkable. Kidneys: Right kidney- No hydronephrosis. No renal stones. Cysts. Left kidney- No hydronephrosis. No renal stones. Cysts. Distal esophagus/stomach: Unremarkable. Small bowel loops: Normal caliber and wall thickness. Colon: Diverticula. Right hemicolectomy. Minimal perisigmoid inflammation. Nodes: No enlarged nodes. Peritoneum: No ascites. No free air. Urinary bladder: Unremarkable. Uterus: Removed. Adnexa: No masses. Bones: No acute bony abnormality. Soft tissues: Large ventral hernia before, containing nonobstructed colonic loops. Aorta: No aneurysm or dissection. Atherosclerotic disease, with foci of ectasia. IVC: Unremarkable. Main portal vein/SMV/splenic vein: Patent. IMPRESSION: 1. Minimal sigmoid diverticulitis not excluded. 2. Otherwise no acute abnormality, with findings as above. Reviewed, dictated and finalized at location R. RIST
--- NOTE | ~2025-06-10 | MR_ITS ---
EXAMINATION: MR thoracic spine wo con DATE: 06/10/2025 12:58 INDICATION: Severe pain TECHNIQUE: Magnetic resonance imaging (MRI) of the thoracic spine was performed without intravenous contrast. Sagittal localizer T1-weighted FSE of the cervical spine was obtained. Thoracic spine sequences included sagittal T2-weighted FSE, sagittal T1-weighted FSE, sagittal T2-weighted FS FSE, and axial T2-weighted FSE. COMPARISON: None FINDINGS: On sagittal STIR image 9 series 7, minimally displaced anterosuperior fracture through the superior endplate of T7. Subjacent edematous appearing changes are present in the superior endplate. There is also mild focal hyperintense edematous appearing or T2-weighted changes in the anteroinferior endplate of T6. The middle and posterior columns appear intact. No retropulsion. No other acute or aggressive bony or soft tissue process is seen. Moderately severe kyphosis and degenerative changes throughout the thoracic spine but no large disc herniations or spinal canal stenosis. IMPRESSION: 1. Acute minimally or nondisplaced fracture involving the anterosuperior endplate of T7. Middle and posterior columns appear intact with no retropulsion. 2. Other chronic findings as above. Reviewed, dictated and finalized at location A. TY PERSON IMPRESSION: 1. Acute minimally or nondisplaced fracture involving the anterosuperior endpla te of T7. Middle and posterior columns appear intact with no retropulsion. 2. Other chronic findings as above.
--- NOTE | ~2025-06-10 | MR_ITS ---
EXAMINATION: MR lumbar spine wo con DATE: 06/10/2025 13:43 INDICATION: Severe back pain TECHNIQUE: Magnetic resonance imaging (MRI) of the lumbar spine was performed without intravenous contrast. Sequences included sagittal T2-weighted FSE, sagittal T2-weighted FS FSE, sagittal T1-weighted FSE, and axial T2-weighted FSE. COMPARISON: CT studies dated 05/15/2025 and 06/10/2025 FINDINGS: 4 mm anterolisthesis L4 on L5. Vertebral body heights are normal. Normal marrow signal. Mild to moderate disc height loss with annular fissure and disc extrusion at L2-L3 with disc material extending a few millimeters cephalad and caudal to the level of the endplates. Mild disc height loss with additional annular fissure at L4-L5. Mild disc height loss at T10-T11 and T11-T12. Disc desiccation without significant disc height loss at L1-L2 and L3-L4. The conus medullaris terminates at L1. There is normal signal in the caudal spinal cord. There are T2 hyperintense simple renal cysts measuring up to 3.7 cm in the left kidney. There are a few smaller T2 hypointense proteinaceous/hemorrhagic cysts at both kidneys with corresponding increased density but without definitive enhancement on the prior pre and postcontrast imaging. The following disc levels are specifically discussed: T12-L1: The disc does not extend beyond the endplate margin. There is mild bilateral facet joint osteoarthritis. There is no neural foraminal stenosis. There is no central canal stenosis. L1-L2: Disc is mildly bulging. There is mild bilateral facet joint osteoarthritis. There is minimal bilateral neural foraminal stenosis. There is minimal central canal stenosis. L2-L3: Disc is bulging. There is mild to moderate bilateral facet joint osteoarthritis. There is moderate bilateral neural foraminal stenosis. There is moderate central canal stenosis. L3-L4: Disc is bulging. There is mild bilateral facet joint osteoarthritis. There is mild to moderate bilateral neural foraminal stenosis. There is mild central canal stenosis. L4-L5: Disc is bulging. There is severe bilateral facet joint osteoarthritis. There is moderate bilateral neural foraminal stenosis. There is mild central canal stenosis. L5-S1: Disc is minimally bulging most prominent at the frontal sinus. There is moderate bilateral facet joint osteoarthritis. There is mild bilateral neural foraminal stenosis. There is no central canal stenosis. IMPRESSION: 1. Mild to moderate lumbar spondylosis most notable at L2-L3 where there is moderate central canal and moderate bilateral neural foraminal stenosis. Reviewed, dictated and finalized at location A. SUPERINTENDENT IMPRESSION: 1. Mild to moderate lumbar spondylosis most notable at L2-L3 where there is mod erate central canal and moderate bilateral neural foraminal stenosis.
--- NOTE | ~2025-06-10 | MR_ITS ---
EXAMINATION: MR cervical spine wo/w con DATE: 06/11/2025 12:31 INDICATION: Pain TECHNIQUE: Magnetic resonance imaging (MRI) of the cervical spine was performed with and without intravenous contrast. Sequences included sagittal T2-weighted FSE, sagittal T2-weighted FS FSE, sagittal T1-weighted FSE, axial MERGE, and axial T2-weighted FSE. COMPARISON: None NOTE: Examination significantly degraded by extensive motion artifact FINDINGS: Degenerative changes are present throughout the the cervical spine involving disc spaces, uncovertebral joints and pedicles. The sagittal images are particularly limited, however no discrete medullary cord lesions or gross myelopathic changes. No abnormal enhancing lesions or postcontrast enhancement pathology identified. Level specific findings as follows C2-3: Moderately severe posterior spondylosis resulting in moderate right and mild left-sided neural foraminal narrowing. No spinal canal stenosis or discrete disc protrusion. C3-4: Moderately severe posterior disc changes and facet changes results in moderately severe bilateral neural foraminal narrowing right worse than left. No spinal canal stenosis or discrete disc protrusion. C4-5: More advanced uncovertebral and disc changes resulting in severe right and moderate left neural foraminal narrowing. No spinal canal stenosis or discrete disc protrusion. C5-6: No spinal canal stenosis or discrete disc protrusion. Moderate possibly severe bilateral neural foraminal narrowing, left worse than right. This level is obscured. C6-7: No spinal canal stenosis or discrete disc protrusion. Moderately severe bilateral neural foraminal narrowing. C7-T1: Moderate bilateral neural foraminal narrowing. No spinal canal stenosis or discrete disc protrusion. IMPRESSION: 1. Extensive motion artifact limits exam as noted above. No discrete medullary cord lesions or gross myelopathic changes. No abnormal enhancing lesions identified. 2. Multilevel degenerative changes with no spinal canal stenosis or discrete disc protrusion. Varying degrees of neural foraminal narrowing including potentially severe stenosis seen at several levels as cataloged above. Reviewed, dictated and finalized at location A. SHING LAB TECHNICIAN IMPRESSION: 1. Extensive motion artifact limits exam as noted above. No discrete medullary cord lesions or gross myelopathic changes. No abnormal enhancing lesions identi fied. 2. Multilevel degenerative changes with no spinal canal stenosis or discrete di sc protrusion. Varying degrees of neural foraminal narrowing including potentia lly severe stenosis seen at several levels as cataloged above.
--- NOTE | ~2025-06-10 | XR_ITS ---
Examination: XR hip LT 2V w AP pelvis Clinical History: FALL Comparison: CT abdomen and pelvis 05/15/2025 Technique: 2 views left hip with AP pelvis Findings/impression: 1. No fracture or dislocation left pelvis. 2. No pelvic fracture identified. Reviewed, dictated and finalized at location R. CTOR OF ANNUAL GIVING
--- NOTE | ~2025-06-10 | MR_ITS ---
EXAM/PROCEDURE: MR brain/brain stem wo/w con HISTORY: LLE weakness, falls for 3 weeks COMPARISON: None available. TECHNIQUE: Pre and postcontrast enhanced brain MRI FINDINGS: Moderately severe diffuse periventricular T2 weighted hyperintense white matter changes present with no restricted diffusion or acute ischemic event. On postcontrast series no abnormally enhancing lesions or masses; no post enhancement pathology identified. No hemorrhage. Brainstem and cerebellum appear normal. Vascular flow voids patent at skull base. No hippocampal sclerosis. Orbital periorbital paranasal calvarial structures appear normal. IMPRESSION: Advanced chronic microvascular ischemic appearing white matter changes. No acute ischemic event, mass or hemorrhage. Reviewed, dictated and finalized at location A. ION PLANNER IMPRESSION: Advanced chronic microvascular ischemic appearing white matter changes. No acut e ischemic event, mass or hemorrhage.
--- NOTE | 2025-06-10 02:10 | ECG_ITS ---
Test Date: 2025-06-10 03:07:01 Measurements Intervals Geraldine Rate: 70 P: 18 CA: 175 QRS: -32 QRSD: 81 T: 4 QT: 374 QTc: 404 Interpretive Statements SINUS RHYTHM LEFT AXIS DEVIATION DELAYED PRECORDIAL R/S TRANSITION LOW QRS VOLTAGE IN PRECORDIAL LEADS CONSIDER HIGH LATERAL INFARCT, AGE INDETERMINATE BORDERLINE T WAVE ABNORMALITY- INFERIOR LEADS ABNORMAL ECG Compared to ECG 11/18/2024 15:19:38 NO SIGNIFICANT CHANGE Electronically Signed On 06-10-2025 08:48:15 ANALOG IC DESIGN ENGINEER by Priyank Waddell D.O.
[2025-06-10] MEDS: LACTATED RINGERS 1,000 ML 999 ML IV CONT (04:00)
[2025-06-10 05:07] LABS: Hematocrit 35.1 % (37.0-47.0); Hemoglobin 10.7 g/dL (12.0-15.0); Immature Granulocyte Percent A 0.3 % (0-0.5); Lymphocytes Absolute Auto 1.34 K/mm3 (0.9-3.2); Mean Corpuscular HGB Conc 30.5 g/dl (32-36); Mean Corpuscular Hemoglobin 30.2 pg (26-34); Mean Corpuscular Volume 99.2 fl (80-100); Nucleated Red Blood Cells Absolute Auto 0.000 K/mm3 (0.0-0.012); Nucleated Red Blood Cells Perc 0.0 % (0.0-0.2); Platelet Count Result 239 k/mm3 (150-375); Red Blood Count 3.54 M/mm3 (4.2-5.4); White Blood Count 5.9 K/mm3 (4.5-10.0)
[2025-06-10 05:10] LABS: Alanine Aminotransferase 26 U/L (6-35); Albumin Level 3.8 g/dL (3.5-5.1); Alkaline Phosphatase 104 U/L (38-126); Anion Gap 7 mmol/L (4-12); Aspartate Amino Transferase 39 U/L (14-36); Bilirubin,Total 0.5 mg/dL (0.2-1.3); Blood Urea Nitrogen 29 mg/dL (7-17); Calcium 10.6 mg/dL (8.4-10.2); Carbon Dioxide 18 mmol/L (22-30); Chloride 114 mmol/L (98-107); Estimated Glomerular Filt Rate 33; Glucose 99 mg/dL (65-110); Potassium 4.6 mmol/L (3.4-5.0); Sodium 139 mmol/L (137-145); Total Protein 6.6 g/dL (6.3-8.2)
[2025-06-10 06:04] LABS: Add Urine Microscopic? YES; Appearance Urine Clear (Clear); Glucose Urine UA Negative (Negative); Leukocyte Esterase Ur 1+ LEU/UL (Negative); Need Manual Microscopic Reviewed; Nitrate Urine Negative (Negative); Non Pathogenic Casts 0-2; Specific Grav Ur 1.014 (1.001-1.035)
[2025-06-10 06:12] LABS: INR 1.1; Prothrombin Time 13.9 Seconds (11.1-14.7)
[2025-06-10 06:14] LABS: Partial Thromboplastin Time 26.7 Seconds (22.3-36.8)
--- NOTE | 2025-06-10 06:35 | PC.NURSE ---
pt was not hooked back up to fluids after scan. fluids restarted. will start antibiotic once fluids are finished.
--- NOTE | 2025-06-10 06:38 | ED.FALL ---
HPI - Fall General Chief Complaint: Fall Stated Complaint: Fall History of Present Illness HPI Narrative: Patient seen, evaluated, treated and disposition made during EMR down time in this emergency department. Please see patient's physical documentation and chart for dictation of patient's care and course during the ER visit. Related Data Home Medications ?Medication ?Instructions ?Recorded ?Confirmed ?Last Taken ?Type furosemide 20 mg tablet (Lasix) 20 mg PO DAILY 07/13/19 05/15/25 05/14/25 History omeprazole 40 mg capsule,delayed 40 mg PO DAILY 07/13/19 05/15/25 05/14/25 History release allopurinol 300 mg tablet 300 mg PO DAILY 03/20/24 05/15/25 05/14/25 History coenzyme Q10 75 mg capsule (Ultra 75 mg PO DAILY 03/20/24 05/15/25 05/14/25 History CoQ10) cyclobenzaprine 10 mg tablet 10 mg PO HS 03/20/24 05/15/25 05/14/25 History melatonin 10 mg capsule 10 mg PO QHS 03/20/24 05/15/25 05/14/25 History potassium citrate 99 mg capsule 99 mg PO DAILY 03/20/24 05/15/25 05/14/25 History sour ruffin extract 1,000 mg 1,000 mg PO DAILY 03/20/24 05/15/25 05/14/25 History capsule (Tart Ruffin Extract) aspirin 81 mg tablet,delayed 81 mg PO HS 08/13/24 05/15/25 05/14/25 History release clopidogrel 75 mg tablet 75 mg PO HS 08/13/24 05/15/25 05/14/25 History metoprolol succinate 25 mg 12.5 mg PO HS 11/18/24 05/15/25 05/14/25 History tablet,extended release 24 hr Allergies Allergy/AdvReac Type Severity Reaction Status Date / Time fenofibrate Allergy Intermediate ITCHING, Verified 06/10/25 06:07 HIVES ciprofloxacin Allergy Unknown Unknown Verified 06/10/25 06:07 Penicillins Allergy Unknown Unknown Verified 06/10/25 06:07 Review of Systems Review of Systems: All systems reviewed & are unremarkable except as noted in HPI and below PMFSH Past Medical History Medical History Gastroesophageal reflux Ventral hernia Cerebrovascular accident Irritable bowel syndrome with diarrhea Hyperlipidemia Hypertension Coronary artery disease Reported [place] in 1999. Colon cancer Surgical History Surgical History History of incisional hernia repair History of hysterectomy History of cholecystectomy History of appendectomy History of coronary artery stent placement History of colon resection Family History Family History Father Family history of heart disease in male family member before age 55 Cancer, bladder, neck Social History Social History Social History: Surrogate medical decision maker: Allan Waltermelanie, spouse. Code status: Full code. Smoking packs per day: 1 Smoking cigarettes per day: 20.0 Years smoked: 30 Smoking pack-years: 30.00 Smoking status: Former smoker Tobacco type: cigarettes Second hand tobacco smoke exposure: Yes Smoking end date: 05/15/19 Alcohol intake: never Substance use: never Substance use type: does not use Lack of Transportation: No Lack of Food: Never True Current Housing: I Have Housing Concerned About Future Housing: No Difficulty Paying Gas/Electric Bills: No Difficulty Paying for Meds: No Currently Unemployed: No Education: High School Diploma/GED Difficulty w/ Childcare or Family Care: No Living arrangements: with family Spiritual care concerns: No Agree to blood products: Yes Exam Narrative: Patient seen, evaluated, treated and disposition made during EMR down time in this emergency department. Please see patient's physical documentation and chart for dictation of patient's care and course during the ER visit. Course Vital Signs Vital signs: Vital Signs Temperature 36.9 C 06/10/25 01:35 Pulse Rate 69 06/10/25 01:35 Respiratory Rate 20 06/10/25 01:35 Blood Pressure 127/69 06/10/25 01:35 Pulse Oximetry 95 06/10/25 01:35 Oxygen Delivery Room Air 06/10/25 01:35 Temperature 36.9 C 06/10/25 06:09 Pulse Rate 80 06/10/25 06:09 Respiratory Rate 17 06/10/25 06:09 Blood Pressure 126/73 06/10/25 06:09 Pulse Oximetry 95 06/10/25 06:09 Oxygen Delivery Room Air 06/10/25 01:35 MDM MDM Narrative Medical decision making narrative: Patient seen, evaluated, treated and disposition made during EMR down time in this emergency department. Please see patient's physical documentation and chart for dictation of patient's care and course during the ER visit. Differential Diagnosis Differential Diagnosis: Acute stroke, chronic stroke, diverticulitis, diverticulosis, colitis, gastroenteritis, hemorrhoid, electrolyte imbalances, dehydration Lab Data 06/10/25 02:44 06/10/25 02:44 Labs: Lab Results 06/10/25 06/10/25 Range/Units 02:44 05:41 WBC 5.9 (4.5-10.0) K/mm3 RBC 3.54 L (4.2-5.4) M/mm3 Hgb 10.7 L (12.0-15.0) g/dL Hct 35.1 L (37.0-47.0) % MCV 99.2 (80-100) fl MCH 30.2 (26-34) pg MCHC 30.5 L (32-36) g/dl RDW 14.6 H (11.5-14.5) % Plt Count 239 D (150-375) k/mm3 MPV 10.5 H (7.4-10.4) fl Immature Gran % (Auto) 0.3 (0-0.5) % Neut % (Auto) 61.4 (45.5-73.1) % Lymph % (Auto) 22.6 (18.3-44.2) % [place] % (Auto) 10.3 H (2.6-8.5) % Eos % (Auto) 4.2 (0-4.4) % Baso % (Auto) 1.2 (0.2-1.2) % Lymph # (Auto) 1.34 (0.9-3.2) K/mm3 [place] # (Auto) 0.6 (0.1-0.6) K/mm3 Eos # (Auto) 0.3 (0-0.3) K/mm3 Baso # (Auto) 0.1 (0.0-0.1) K/mm3 Abs Immat Gran (auto) 0.02 (0.00-0.031) K/mm3 Absolute Neuts (auto) 3.7 (1.3-6.7) K/mm3 Absolute Nucleated RBC 0.000 (0.0-0.012) K/mm3 Nucleated RBC % 0.0 (0.0-0.2) % PT 13.9 (11.1-14.7) Seconds INR 1.1 APTT 26.7 (22.3-36.8) Seconds Sodium 139 (137-145) mmol/L Potassium 4.6 (3.4-5.0) mmol/L Chloride 114 H (98-107) mmol/L Carbon Dioxide 18 L (22-30) mmol/L Anion Gap 7 (4-12) mmol/L BUN 29 H D (7-17) mg/dL Creatinine 1.54 H (0.7-1.0) mg/dL Estim Creat Clear Calc Not Reportable Estimated GFR 33 L (59 - ) Glucose 99 (65-110) mg/dL Calcium 10.6 H (8.4-10.2) mg/dL Total Bilirubin 0.5 (0.2-1.3) mg/dL AST 39 H (14-36) U/L ALT 26 (6-35) U/L Alkaline Phosphatase 104 (38-126) U/L Total Protein 6.6 (6.3-8.2) g/dL Albumin 3.8 (3.5-5.1) g/dL Urine Color Yellow (Yellow) Urine Appearance Clear (Clear) Urine pH 5.0 (5.0-9.0) Ur Specific [place] 1.014 (1.001-1.035) Urine Protein Trace (Negative) mg/dL Urine Glucose (UA) Negative (Negative) mg/dL Urine Ketones Negative (Negative) mg/dL Ur Blood (Man) Negative (Negative) Urine Nitrate Negative (Negative) Urine Bilirubin Negative (Negative) Urine Urobilinogen 0.2 (<2.0) mg/dL Add Ur Microanalysis Reviewed Leukocyte Esterase Rfl 1+ H (Negative) ANDRAE/UL Urine RBC 0-2 (0-2) /hpf Urine WBC 11-20 H (0-3) /hpf Ur Squamous Epith Cells Occasional (Few) /hpf Urine Bacteria 4+ H /hpf Urine Casts 0-2 Discharge Plan Discharge Clinical Impression: Left leg weakness, Diverticulitis, Frequent falls, History of stroke Patient Disposition: Still a Patient Condition: Stable Patient Language: Tajik Prescriptions: No Action allopurinol 300 mg tablet 300 mg PO DAILY melatonin 10 mg capsule 10 mg PO QHS cyclobenzaprine 10 mg tablet 10 mg PO HS potassium citrate 99 mg capsule 99 mg PO DAILY Tart Ruffin Extract 1,000 mg capsule 1,000 mg PO DAILY Ultra CoQ10 75 mg capsule 75 mg PO DAILY aspirin 81 mg tablet,delayed release (DR/EC) 81 mg PO HS clopidogrel 75 mg tablet 75 mg PO HS Prevalite 4 gram Powder In Packet 4 g PO BID@1000,1800 Qty: 60 0RF omeprazole 40 mg capsule,delayed release(DR/EC) 40 mg PO DAILY furosemide [Lasix] 20 mg tablet 20 mg PO DAILY metoprolol succinate 25 mg tablet extended release 24 hr 12.5 mg PO HS Follow-up/Referrals: Lisandra,Devyn Roberts MD [Primary Care Provider, Unknown] Time of Disposition: 06:40
[2025-06-10] MEDS: cefTRIAXone 1 GM in SODIUM CHLORIDE 0.9% IV 50 ML 100 ML IVPB ×2 (06:55→11:03)
[2025-06-10] MEDS: metroNIDAZOLE 500 MG/ISO 100ML 500 MG/100 ML BAG 100 MG IVPB ×2 (07:09→14:16)
--- NOTE | 2025-06-10 08:02 | WPCEDHO ---
ED Hand Off Checklist All vitals saved: YES IV Site documented: YES All med administrations documented: YES Triage Note Triage Note Pt to ED from home w c/o frequent 06/10/25 01:35 falls since Tuesday. pt reports she just fell yesterday onto her L hip and has a visible contusion. pt states this is because she has a weak R leg and frequently forgets and tries to step up with it and falls. Pt also repots she fell on her face last week and did not go to the doctor to get it checked and has since had some lower abd pain. Pt and pt also reports that she has been forgetting things increasingly over the past year. Pt also c/o bright red stool. no blood thinners Allergies fenofibrate Allergy (Intermediate, Verified 06/10/25 06:07) ITCHING, HIVES ciprofloxacin Allergy (Unknown, Verified 06/10/25 06:07) Unknown Penicillins Allergy (Unknown, Verified 06/10/25 06:07) Unknown PENICILLINS Family History (Last Reviewed 06/10/25 @ 06:39 by Phillip Briggs MD) Father Family history of heart disease in male family member before age 55 Cancer, bladder, neck Administered/Completed Medications Discontinued Medications Ceftriaxone Sodium 1 gm/ (Sodium Chloride) 50 mls @ 100 mls/hr IVPB ONCE STA Stop: 06/10/25 06:49 Last Infusion: 06/10/25 07:07 Dose: Infused Documented By: Admin: 06/10/25 06:55 Dose: 100 mls/hr Documented By: CHIQUITA Metronidazole (Flagyl 500 Mg/Iso Soln 100 Ml) 500 mg in 100 mls @ 100 mls/hr IVPB ONCE STA Stop: 06/10/25 07:19 Last Admin: 06/10/25 07:09 Dose: 100 mls/hr Documented By: CHIQUITA Lactated Ringer's (Lr - Lactated Ringers Iv) 1,000 mls @ 999 mls/hr IV CONT .Q1H1M STA Stop: 06/10/25 03:56 Last Infusion: 06/10/25 07:19 Dose: Infused Documented By: Admin: 06/10/25 04:00 Dose: 999 mls/hr Documented By: CHIQUITA Notes 06/10/25 06:35 Nurse Note by Ailyn Floers pt was not hooked back up to fluids after scan. fluids restarted. will start antibiotic once fluids are finished. Initialized on 06/10/25 06:35 - END OF NOTE Interventions/Assessments IV Line Assessment Start: 06/10/25 05:25 Freq: Status: Active Protocol: Document 06/10/25 04:00 EMW (Rec: 06/10/25 06:19 EMW [id number]) IV Assessment Peripheral Access Left Antecubital IV Catheter Access Initiated IV Insertion Date 06/10/25 IV Insertion Time 04:00 Catheter Gauge 20 Ultrasound Used for No Placement IV Site Assessment WNL IV Care and WNL Maintenance PA: Gastrointestinal Assessment Start: 06/10/25 06:04 Freq: Status: Active Protocol: Document 06/10/25 06:04 EMW (Rec: 06/10/25 06:05 EMW [id number]) GI Assessment Gastrointestinal Cramping,Diarrhea,Nausea,Pain Symptoms Description Soft,Tender Stool Bright Red,Loose Characterisitics PA: Neurological Assessment Start: 06/10/25 05:25 Freq: Status: Active Protocol: Document 06/10/25 06:04 EMW (Rec: 06/10/25 06:05 EMW [id number]) Neurological Assessment Level of Alert,Awake Consciousness Orientation Oriented to Person,Oriented to Place,Oriented to Time Neurological Confusion,Frequent Falls,Nausea/Vomiting,Weakness, Symptoms General Behavior Appropriate,Cooperative Patient Able to Comprehend Comprehension Additional pt repeats some questions and has some confusion Neurological Comments Clarice Coma Scale Eyes Open Verbal Oriented and Alert Motor Follows Commands [place] Coma Total 15 Score Last Vital Signs Temperature 98.4 F 06/10/25 07:59 Pulse Rate 71 06/10/25 07:59 Respiratory Rate 18 06/10/25 07:59 Pulse Oximetry 93 06/10/25 08:00 Blood Pressure 102/62 06/10/25 07:59 Blood Pressure Mean 75 06/10/25 07:59 Blood Pressure Position Supine 06/10/25 06:09 Oxygen Delivery Nasal Cannula 06/10/25 08:00 Oxygen Flow Rate 4 06/10/25 08:00 Weight 86.4 kg 06/10/25 01:35 Last Result - Abnormals Only RBC 3.54 M/mm3 (4.2-5.4) L 06/10/25 02:44 Hgb 10.7 g/dL (12.0-15.0) L 06/10/25 02:44 Hct 35.1 % (37.0-47.0) L 06/10/25 02:44 MCHC 30.5 g/dl (32-36) L 06/10/25 02:44 RDW 14.6 % (11.5-14.5) H 06/10/25 02:44 MPV 10.5 fl (7.4-10.4) H 06/10/25 02:44 [place] % (Auto) 10.3 % (2.6-8.5) H 06/10/25 02:44 Chloride 114 mmol/L (98-107) H 06/10/25 02:44 Carbon Dioxide 18 mmol/L (22-30) L 06/10/25 02:44 BUN 29 mg/dL (7-17) H D 06/10/25 02:44 Creatinine 1.54 mg/dL (0.7-1.0) H 06/10/25 02:44 Estimated GFR 33 (59-) L 06/10/25 02:44 Calcium 10.6 mg/dL (8.4-10.2) H 06/10/25 02:44 AST 39 U/L (14-36) H 06/10/25 02:44 Leukocyte Esterase Rfl 1+ ANDRAE/UL (Negative) H 06/10/25 02:44 Urine WBC 11-20 /hpf (0-3) H 06/10/25 02:44 Urine Bacteria 4+ /hpf H 06/10/25 02:44 Most Recent Suicide Severity Rating Suicide Severity Rating NO RISK INDICATED 06/10/25 01:35
--- NOTE | 2025-06-10 08:33 | ADMGEN ---
This patient, Hui Dominguez, was admitted to Medical Room 246-01. Patient/family oriented to hospital policies and general routines including ID bracelet, bed and alarms, visiting hours, pain management, procedures, bathroom and other care routines, personal items, smoking policy, room service/diet, and visiting hours. Information on how to activate the Rapid Response Team has been discussed. Patient/Family are encouraged to report perceived risks to care and to ask questions if they do not understand what they are told or what they should do.
[2025-06-10] MEDS: ONDANSETRON INJ 4 MG/2 ML VIAL IV PUSH (09:01)
--- NOTE | 2025-06-10 09:25 | WPDGICN ---
Assessment and Plan Assessment and plan (1) Diverticulitis: Code(s): K57.92 - Diverticulitis of intestine, part unspecified, without perforation or abscess without bleeding Status: Acute (2) History of colon cancer: Code(s): Z85.038 - Personal history of other malignant neoplasm of large intestine Status: Acute (3) History of colon resection: Code(s): Z90.49 - Acquired absence of other specified parts of digestive tract Status: Acute (4) Gastroesophageal reflux: Qualifiers: Esophagitis presence: esophagitis presence not specified Qualified Code(s): K21.9 - Gastro-esophageal reflux disease without esophagitis Code(s): K21.9 - Gastro-esophageal reflux disease without esophagitis Status: Acute (5) Chronic diarrhea: Code(s): K52.9 - Noninfective gastroenteritis and colitis, unspecified Status: Acute Plan 1. Diverticulitis/hematochezia/chronic diarrhea/personal history of colon polyps/personal history of colon cancer s/p right hemicolectomy: Last colonoscopy 06/02/2025 showed diverticulosis and normal postsurgical colonoscopy with a [address] today showed minimal sigmoid diverticulitis could not be excluded. Patient recently admitted to [facility] May 15- during which time she was seen by GI for chronic diarrhea and was started on cholestyramine. Patient states that she had been taking cholestyramine since her discharge and her chronic diarrhea had significantly improved until yesterday. She states that yesterday she started experiencing bilateral lower quadrant abdominal pain that was sharp and crampy in nature that did not have a direct correlation with food intake or bowel movements. Late yesterday she states that she had a bowel movement with a large amount of bright red blood per rectum and since yesterday her stools have slowly become more brown. Patient received Flagyl and Rocephin. Decrease in H/H since admission Hgb 11-->10, Hct 35-->34, MCV 99 and platelets 277 and INR 1.1. Given the patient's history and description of symptoms is likely secondary to an acute diverticular bleed Per patient and RN her stools are becoming more brown in color since admission Will hold off on endoscopic evaluation at this time unless there is a concern for active GI Care with anticoagulants Primary care team to continue monitoring H&H and transfuse as needed to keep HGB > 7 If H/H continues to decrease, recommend CTA to eval for bleeding If diarrhea return, restart [place] Patient on antibiotics, continue 2. GERD: Patients main complaint at this time is severe upper back pain that she describes as a burning stabbing sensation along with uncontrollable shaking throughout her body, note that she is afebrile. She denies any epigastric pain unclear if this is secondary to GI versus muscular skeletal versus neurologic. Prior to admission she was not taking omeprazole regularly and denies any reflux symptoms. Patient states that the day before her admission she started having lower abdominal pain, diarrhea, nausea and dry heaves. She denies any hematemesis or coffee-ground emesis. Patient is on aspirin 81 mg daily but otherwise denies OTC NSAIDs or anticoagulant use. Last EGD 09/07/2018 was unremarkable. LFT's normal except mildly elevated AST at 29. No findings on CT to explain complaints of upper back pain. PUD can not be excluded at this time. A brisk upper GI bleed also can not be excluded, given only slight drop in H/H this is very unlikely, but something to consider/monitor for. start Protonix 40 mg daily may consider treating empirically with Carafate 1 gm QID if symptoms persist. Thank you very much for allowing me to share in the care of this very nice patient. This report may have been done utilizing a voice recognition system. Attempts have been made to correct errors. However, there may be uncorrected grammatical, spelling, and recognition errors present. GI Consult Note Consult date/time: 06/10/25 09:25 Reason for consult: Diverticulitis HPI: Hui Dominguez is a 74 year old female with past medical surgical history of GERD, ventral hernia, CVA, IBS with diarrhea, HLD, HTN, CAD with history of CO in 1999, colon cancer status post right hemicolectomy, hysterectomy, appendectomy, cholecystectomy, history of cardiac stent placement. She presented to the emergency room today after a fall. GI was consulted for diverticulitis. Patient states that recently she had a fall at home which resulted in a large bruise to the lateral aspect of her upper thigh. She states that the fall had no correlation with this hospitalization. Patient admits to chronic diarrhea which had been improving since her recent hospitalization at which time she was started on cholestyramine. Starting yesterday her diarrhea returned along with lower abdominal pain that was sharp and crampy in nature, nausea and dry heaves. Her main complaint during today's visit was severe upper back pain that she describes as a burning stabbing sensation that sometimes radiates to her lower back. Denies any upper GI complaints at this time. She states that yesterday she had a bowel movement with a large amount of bright red blood. Since that episode her bowel movements have been slowly becoming less red and more towards a normal brown color. Nausea and dry heaves have improved but not resolved since admission. Denies bloating, odynophagia, dysphagia, reflux, regurgitation, early satiety, appetite or weight loss. Denies constipation or melena. ENDOSCOPY HISTORY: EGD: 09/07/[address] Carmichael for iron deficiency anemia Findings: The esophagus was examined mucosa was normal With a normal Z-line and no ulcers or masses. No esophagitis, no hernia. The Z-line was located 40 cm from the incisors The stomach at the body, cardia and fundus was examined was normal with no ulcers or masses. No obvious gastritis. The bulb and 2nd portion of duodenum was normal with no ulcers or masses. COLONOSCOPY: 06/02/[address] Huston for Hx of colon cancer, diarrhea, and Hx of diverticulitis Findings: Multiple diverticula were present in the left colon. Diverticula were not actively bleeding, no inflammation An ileal colonic anastomosis was present in the right colon The terminal ileum and colon was examined was otherwise normal, no colitis, nothing to explain diarrhea, no polyps Multiple biopsies were taken from the whole colon to rule out microscopic: Repeat colonoscopy recommended in 3 years Bx results: Colon, random, biopsy: - Colonic mucosa, negative for diagnostic abnormality COLONOSCOPY: 12/19/[address] Carmichael Hx of colon cancer and diarrhea Findings: End ileocolonic anastomosis was present in the descending colon. The ascending colon was previously removed. The segment was removed due to colon cancer A few medium diverticula were present in the mid sigmoid. Diverticula were not actively bleeding A few small size uncomplicated internal hemorrhoids were seen in the rectum that were not actively bleeding There was a single small polyp observed in the distal sigmoid which appeared benign in nature Hot snare polypectomy was performed polyp was completely excised and retrieved Three year repeat colonoscopy recommended Bx results: A. SIGMOID COLON POLYP, ENDOSCOPIC SNARE POLYPECTOMY: - TUBULAR ADENOMA. COLONOSCOPY: 09/07/[address] Carmichael for iron deficiency anemia Findings: In the proximal ascending colon, a nonobstructing, medium size, malignant-appearing 3 cm x 3 cm mass was seen. There was stigmata of recent bleeding from the mass In the proximal descending colon, a sessile polyp 3 mm x 3 mm was seen. The polyp was not bleeding. The polyp was benign in appearance. Polyp was completely excised by snare and retrieved In the mid sigmoid colon, a few small diverticula were present that were not actively bleeding 1 year repeat colonoscopy recommended Bx results: Ascending colon mass, endoscopic biopsy: Moderately differentiated colonic adenocarcinoma Descending colon polyp, endoscopic polypectomy with snare: Tubular adenoma LABS AND STOOL STUDIES: Labs 06/10/2025: Sodium 139, potassium 4.6, BUN 29, creatinine 1.54, GFR 33, calcium 10.6 WBC 6, Hgb 11, Hct 35, MCV 99, platelets 239, INR 1.1 Total bilirubin 0.5, AST 39, ALT 26, Alkaline Phos 104, albumin 3.8 IMAGING: CT abd/pelvis w/contrast 06/10/2025: Findings: Lung bases: Paraseptal emphysema. Visualized heart and pericardium: Unremarkable. Liver: Steatosis. Gallbladder: Removed. Spleen: Unremarkable. Pancreas: Unremarkable. Adrenal glands: Unremarkable. Kidneys: Right kidney- No hydronephrosis. No renal stones. Cysts. Left kidney- No hydronephrosis. No renal stones. Cysts. Distal esophagus/stomach: Unremarkable. Small bowel loops: Normal caliber and wall thickness. Colon: Diverticula. Right hemicolectomy. Minimal perisigmoid inflammation. Nodes: No enlarged nodes. Peritoneum: No ascites. No free air. Urinary bladder: Unremarkable. Uterus: Removed. Adnexa: No masses. Bones: No acute bony abnormality. Soft tissues: Large ventral hernia before, containing nonobstructed colonic loops. Aorta: No aneurysm or dissection. Atherosclerotic disease, with foci of ectasia. IVC: Unremarkable. Main portal vein/SMV/splenic vein: Patent. IMPRESSION: 1. Minimal sigmoid diverticulitis not excluded. 2. Otherwise no acute abnormality, with findings as above. CT abd/pelvis w/contrast 05/15/2025: IMPRESSION: 1. Fluid throughout the large and small bowel consistent with nonspecific diarrhea. No other acute intra-abdominal/pelvic process. 2. Large ventral hernia containing nonobstructed large and small bowel. 3. Mild diverticulosis with some retained high attenuation material within several diverticula including a possible small metallic foreign body within a diverticulum at the proximal sigmoid colon. Abdominal MRI 02/24/2023: IMPRESSION: 1. Benign cysts in the kidneys. 2. Ventral hernia containing nonobstructed small bowel. Review of Systems Constitutional: Constitutional: Reports as per HPI ENT: Reports as per HPI Cardiovascular: Cardiovascular: Reports as per HPI, Denies chest pain and Denies dyspnea Respiratory: Respiratory: Denies cough and Denies dyspnea Gastrointestinal: Gastrointestinal: Reports as per HPI Musculoskeletal: Musculoskeletal: Reports as per HPI Integumentary/Breasts: Skin/Breast: Reports as per HPI Psychiatric: Psychiatric: Reports as per HPI Endocrine: Endocrine: Reports no additional endocrine complaints Hematologic/Lymphatic: Hematologic/Lymphatic: Reports no additional hematologic/lymphatic complaints [facility] Past Medical History Medical History Gastroesophageal reflux Ventral hernia Cerebrovascular accident Irritable bowel syndrome with diarrhea Hyperlipidemia Hypertension Coronary artery disease Reported CO in 1999. Colon cancer Surgical History Surgical History History of incisional hernia repair History of hysterectomy History of cholecystectomy History of appendectomy History of coronary artery stent placement History of colon resection Family History Family History Father Family history of heart disease in male family member before age 55 Cancer, bladder, neck Social History Social History Social History: Surrogate medical decision maker: Allan Waltermelanie, spouse. Code status: Full code. Smoking packs per day: 1 Smoking cigarettes per day: 20.0 Years smoked: 30 Smoking pack-years: 30.00 Smoking status: Former smoker Second hand tobacco smoke exposure: Yes Alcohol intake: never Substance use: never Substance use type: does not use Lack of Transportation: No Lack of Food: Never True Current Housing: I Have Housing Concerned About Future Housing: No Difficulty Paying Gas/Electric Bills: No Difficulty Paying for Meds: No Currently Unemployed: No Education: High School Diploma/GED Difficulty w/ Childcare or Family Care: No Living arrangements: with family Spiritual care concerns: No Agree to blood products: Yes Meds Home Medications and Allergies Home Medications ?Medication ?Instructions ?Recorded ?Confirmed ?Type furosemide 20 mg tablet (Lasix) 20 mg PO DAILY 07/13/19 06/10/25 History omeprazole 40 mg capsule,delayed 40 mg PO DAILY 07/13/19 06/10/25 History release allopurinol 300 mg tablet 300 mg PO DAILY 03/20/24 06/10/25 History coenzyme Q10 75 mg capsule (Ultra 75 mg PO DAILY 03/20/24 06/10/25 History CoQ10) cyclobenzaprine 10 mg tablet 10 mg PO HS 03/20/24 06/10/25 History melatonin 10 mg capsule 10 mg PO QHS 03/20/24 06/10/25 History potassium citrate 99 mg capsule 99 mg PO DAILY 03/20/24 06/10/25 History sour ruffin extract 1,000 mg 1,000 mg PO DAILY 03/20/24 06/10/25 History capsule (Tart Ruffin Extract) aspirin 81 mg tablet,delayed 81 mg PO HS 08/13/24 06/10/25 History release clopidogrel 75 mg tablet 75 mg PO HS 08/13/24 06/10/25 History metoprolol succinate 25 mg 12.5 mg PO HS 11/18/24 06/10/25 History tablet,extended release 24 hr cholestyramine 4 gram oral powder 4 g PO BID@1000,1800 #60 ea 05/17/25 06/10/25 Rx for suspension in a packet (Prevalite) Allergies Allergy/AdvReac Type Severity Reaction Status Date / Time fenofibrate Allergy Intermediate ITCHING, Verified 06/10/25 09:09 HIVES ciprofloxacin Allergy Unknown Unknown Verified 06/10/25 09:09 Penicillins Allergy Unknown Unknown Verified 06/10/25 09:09 Vital Signs Vital Signs - 24 hr 06/10/25 01:35 06/10/25 06:09 06/10/25 07:12 Temperature 98.5 F 98.5 F Pulse Rate 69 80 70 Respiratory Rate 20 17 15 Blood Pressure 127/69 126/73 124/75 Pulse Oximetry 95 95 94 Oxygen Delivery Room Air Oxygen Flow Rate 06/10/25 07:33 06/10/25 07:55 06/10/25 07:59 Temperature 98.4 F Pulse Rate 71 Respiratory Rate 18 Blood Pressure 102/62 Pulse Oximetry 92 91 92 Oxygen Delivery Nasal Cannula Nasal Cannula Oxygen Flow Rate 2 3 06/10/25 08:00 06/10/25 09:05 Temperature 97.6 F Pulse Rate 68 Respiratory Rate 18 Blood Pressure 105/90 Pulse Oximetry 93 100 Oxygen Delivery Nasal Cannula Oxygen Flow Rate 4 Exam Const: General: cooperative, no acute distress, well developed and uncomfortable Orientation/consciousness: oriented to person, oriented to place, oriented to time and patient oriented x3 HENMT: Head: normal to inspection, normocephalic and atraumatic Mouth: Yes Normal oral and palatal mucosa present and Yes moist mucous membranes Eyes: General: appearance normal, both eyes and all related structures Conjunctivae: conjunctivae normal Sclera: sclerae normal Pupils: Equal, round and reactive pupils present Neck: Neck: normal visual inspection Chest: Chest palpation & inspection: normal inspection of the chest Resp: Effort & Inspection: able to speak in complete sentences Auscultation: clear to auscultation bilaterally Cardio: Jugular venous distension: no JVD Rate: tachycardic Rhythm: regular rhythm Heart sounds: S1 normal heart sound present and S2 normal heart sound present GI: Inspection: normal to inspection and non-distended GI Palp: Yes Soft to palpation, No Tenderness to palpation present (GI), No Guarding due to palpation present (GI) and Yes No hepatosplenomegaly present Auscultation: normal bowel sounds Rectal Exam: deferred Skin: General skin exam: normal color Wounds: wounds noted Other: bruising on arms and legs along with a large hematoma/bruising to the outer upper thigh Neuro: General: oriented to person, oriented to place, oriented to time and patient oriented x3 Cranial nerves: Yes Equal, round and reactive pupils present Speech: normal speech Extrem: General: normal to inspection and no clubbing, cyanosis or edema Psych: Appearance: grossly normal and well kempt Affect: normal affect Results Labs 06/10/25 10:49 06/10/25 02:44 Labs: Short CBC 06/10/25 Range/Units 02:44 WBC 5.9 (4.5-10.0) K/mm3 Hgb 10.7 L (12.0-15.0) g/dL Hct 35.1 L (37.0-47.0) % Plt Count 239 D (150-375) k/mm3 BMP 06/10/25 02:44 Sodium 139 Potassium 4.6 Chloride 114 H Carbon Dioxide 18 L BUN 29 H D Creatinine 1.54 H Glucose 99 Calcium 10.6 H Liver Function 06/10/25 Range/Units 02:44 Total Bilirubin 0.5 (0.2-1.3) mg/dL AST 39 H (14-36) U/L ALT 26 (6-35) U/L Alkaline Phosphatase 104 (38-126) U/L Albumin 3.8 (3.5-5.1) g/dL Urine 06/10/25 Range/Units 02:44 Urine Color Yellow (Yellow) Urine Appearance Clear (Clear) Urine pH 5.0 (5.0-9.0) Ur Specific [place] 1.014 (1.001-1.035) Urine Protein Trace (Negative) mg/dL Urine Glucose (UA) Negative (Negative) mg/dL
[2025-06-10] MEDS: ACETAMINOPHEN 325 MG TABLET 650 MG PO (10:37)
[2025-06-10] MEDS: LIDOCAINE 5% PATCH 2 PATCH TRANSDERM (10:41)
[2025-06-10] MEDS: SODIUM CHLORIDE 0.9% IV 1,000 ML 100 ML IV CONT (10:47)
[2025-06-10 11:05] LABS: Hematocrit 33.7 % (37.0-47.0); Hemoglobin 10.3 g/dL (12.0-15.0); Mean Corpuscular HGB Conc 30.6 g/dl (32-36); Mean Corpuscular Hemoglobin 30.3 pg (26-34); Mean Corpuscular Volume 99.1 fl (80-100); Platelet Count Result 277 k/mm3 (150-375); Red Blood Count 3.40 M/mm3 (4.2-5.4); White Blood Count 5.1 K/mm3 (4.5-10.0)
--- NOTE | 2025-06-10 13:46 | PM.IMHP2 ---
H&P: HPI History of Present Illness Date/Time: 06/10/25 13:46 Chief Complaint: fall Narrative: Patient is a 74 year old female with PMH of GERD, CVA, IBS with diarrhea, HLD, HTN, CAD, [place], colon cancer s/p right hemicolectomy. Patient presented to the ER with complaints of diarrhea and repeated falls. Patient was evaluated in the ER and had multiple imaging studies done due to her falls. Patient had a CT abdomen and pelvis which showed diverticulitis. Patient reported diarrhea that had bright red blood prior to presenting to the ER. The patient reports severe upper back pain that radiates to her lower back. She also reports new RLE weakness. Patient was given IV fluids and IV antibiotics. GI was consulted and Neurology was consulted. Patient was admitted for further evaluation and treatment. Review of Systems Review of Systems: All systems reviewed & are unremarkable except as noted in HPI and below PMFSH Past Medical History Medical History (Updated 06/10/25 @ 18:27 by Neel Leiva MD) Fracture of T7 vertebra Gastroesophageal reflux Ventral hernia Cerebrovascular accident Irritable bowel syndrome with diarrhea Hyperlipidemia Hypertension Coronary artery disease Reported [place] in 1999. Colon cancer Surgical History Surgical History History of incisional hernia repair History of hysterectomy History of cholecystectomy History of appendectomy History of coronary artery stent placement History of colon resection Family History Family History Father Family history of heart disease in male family member before age 55 Cancer, bladder, neck Social History Social History Social History: Surrogate medical decision maker: Allan Dominguez, spouse. Code status: Full code. Smoking packs per day: 1 Smoking cigarettes per day: 20.0 Years smoked: 30 Smoking pack-years: 30.00 Smoking status: Former smoker Second hand tobacco smoke exposure: Yes Alcohol intake: never Substance use: never Substance use type: does not use Lack of Transportation: No Lack of Food: Never True Current Housing: I Have Housing Concerned About Future Housing: No Difficulty Paying Gas/Electric Bills: No Difficulty Paying for Meds: No Currently Unemployed: No Education: High School Diploma/GED Difficulty w/ Childcare or Family Care: No Living arrangements: with family Spiritual care concerns: No Agree to blood products: Yes Meds Home Medications and Allergies Home Medications ?Medication ?Instructions ?Recorded ?Confirmed ?Type furosemide 20 mg tablet (Lasix) 20 mg PO DAILY 07/13/19 06/10/25 History omeprazole 40 mg capsule,delayed 40 mg PO DAILY 07/13/19 06/10/25 History release allopurinol 300 mg tablet 300 mg PO DAILY 03/20/24 06/10/25 History coenzyme Q10 75 mg capsule (Ultra 75 mg PO DAILY 03/20/24 06/10/25 History CoQ10) cyclobenzaprine 10 mg tablet 10 mg PO HS 03/20/24 06/10/25 History melatonin 10 mg capsule 10 mg PO QHS 03/20/24 06/10/25 History potassium citrate 99 mg capsule 99 mg PO DAILY 03/20/24 06/10/25 History sour ruffin extract 1,000 mg 1,000 mg PO DAILY 03/20/24 06/10/25 History capsule (Tart Ruffin Extract) aspirin 81 mg tablet,delayed 81 mg PO HS 08/13/24 06/10/25 History release clopidogrel 75 mg tablet 75 mg PO HS 08/13/24 06/10/25 History metoprolol succinate 25 mg 12.5 mg PO HS 11/18/24 06/10/25 History tablet,extended release 24 hr cholestyramine 4 gram oral powder 4 g PO BID@1000,1800 #60 ea 05/17/25 06/10/25 Rx for suspension in a packet (Prevalite) Allergies Allergy/AdvReac Type Severity Reaction Status Date / Time fenofibrate Allergy Intermediate ITCHING, Verified 06/10/25 09:09 HIVES ciprofloxacin Allergy Unknown Unknown Verified 06/10/25 09:09 Penicillins Allergy Unknown Unknown Verified 06/10/25 09:09 Vital Signs Vital Signs - 24 hr 06/10/25 01:35 06/10/25 06:09 06/10/25 07:12 Temperature 98.5 F 98.5 F Pulse Rate 69 80 70 Respiratory Rate 20 17 15 Blood Pressure 127/69 126/73 124/75 Pulse Oximetry 95 95 94 Oxygen Delivery Room Air Oxygen Flow Rate 06/10/25 07:33 06/10/25 07:55 06/10/25 07:59 Temperature 98.4 F Pulse Rate 71 Respiratory Rate 18 Blood Pressure 102/62 Pulse Oximetry 92 91 92 Oxygen Delivery Nasal Cannula Nasal Cannula Oxygen Flow Rate 2 3 06/10/25 08:00 06/10/25 09:05 06/10/25 10:31 Temperature 97.6 F Pulse Rate 68 102 H Respiratory Rate 18 16 Blood Pressure 105/90 Pulse Oximetry 93 100 100 Oxygen Delivery Nasal Cannula Room Air Oxygen Flow Rate 4 06/10/25 12:04 Temperature Pulse Rate 96 Respiratory Rate Blood Pressure Pulse Oximetry Oxygen Delivery Oxygen Flow Rate Exam Const: General: comfortable and no acute distress HENMT: Face/Nose/Sinus: Normal nares present Mouth: Yes moist mucous membranes Eyes: General: appearance normal, both eyes and all related structures Sclera: sclerae normal Neck: Neck: supple Resp: Effort & Inspection: normal respiratory effort Auscultation: clear to auscultation bilaterally Cardio: Rate: regular rate Rhythm: regular rhythm GI: GI Palp: Yes Soft to palpation Auscultation: normal bowel sounds Skin: General skin exam: normal color and no rashes or lesions noted Neuro: Speech: normal speech Motor exam (neuro): 5/5 motor strength present throughout Sensory Exam: normal sensation Extrem: General: normal to inspection Psych: Mental Status: mental status grossly normal Affect: normal affect Results Labs Labs: Short CBC 06/10/25 06/10/25 Range/Units 02:44 10:49 WBC 5.9 5.1 (4.5-10.0) K/mm3 Hgb 10.7 L 10.3 L (12.0-15.0) g/dL Hct 35.1 L 33.7 L (37.0-47.0) % Plt Count 239 D 277 (150-375) k/mm3 BMP 06/10/25 02:44 Sodium 139 Potassium 4.6 Chloride 114 H Carbon Dioxide 18 L BUN 29 H D Creatinine 1.54 H Glucose 99 Calcium 10.6 H Liver Function 06/10/25 Range/Units 02:44 Total Bilirubin 0.5 (0.2-1.3) mg/dL AST 39 H (14-36) U/L ALT 26 (6-35) U/L Alkaline Phosphatase 104 (38-126) U/L Albumin 3.8 (3.5-5.1) g/dL Urine 06/10/25 Range/Units 02:44 Urine Color Yellow (Yellow) Urine Appearance Clear (Clear) Urine pH 5.0 (5.0-9.0) Ur Specific [place] 1.014 (1.001-1.035) Urine Protein Trace (Negative) mg/dL Urine Glucose (UA) Negative (Negative) mg/dL Imaging CT scan - abdomen: Radiologist's impression: Ordering Physician: Phillip Briggs MD Date of Service: 06/10/25 Procedure(s): CT abdomen pelvis w con Accession Number(s): [id number] cc: Lisandra, Devyn Roberts MD; Ang Mcmahan MD; Phillip Briggs MD~ CT abdomen pelvis w con Clinical History: gi bleed . Comparison: 05/15/2025 Technique: Axial images lung bases to symphysis pubis 100 mL Omnipaque 350 Coronal, sagittal reformats CT images acquired with automatic exposure control for dose reduction DLP: 1165 mGy-cm Findings: Lung bases: Paraseptal emphysema. Visualized heart and pericardium: Unremarkable. Liver: Steatosis. Gallbladder: Removed. Spleen: Unremarkable. Pancreas: Unremarkable. Adrenal glands: Unremarkable. Kidneys: Right kidney- No hydronephrosis. No renal stones. Cysts. Left kidney- No hydronephrosis. No renal stones. Cysts. Distal esophagus/stomach: Unremarkable. Small bowel loops: Normal caliber and wall thickness. Colon: Diverticula. Right hemicolectomy. Minimal perisigmoid inflammation. Nodes: No enlarged nodes. Peritoneum: No ascites. No free air. Urinary bladder: Unremarkable. Uterus: Removed. Adnexa: No masses. Bones: No acute bony abnormality. Soft tissues: Large ventral hernia before, containing nonobstructed colonic loops. Aorta: No aneurysm or dissection. Atherosclerotic disease, with foci of ectasia. IVC: Unremarkable. Main portal vein/SMV/splenic vein: Patent. IMPRESSION: 1. Minimal sigmoid diverticulitis not excluded. 2. Otherwise no acute abnormality, with findings as above. Reviewed, dictated and finalized at location R. TECHNICAL SPECIALIST CT scan - head: Radiologist's impression: Ordering Physician: Phillip Briggs MD Date of Service: 06/10/25 Procedure(s): CT brain wo con Accession Number(s): [id number] cc: Los, Devyn Roberts MD; Ang Mcmahan MD; Phillip Briggs MD~ CT HEAD NON-CONTRAST Clinical History: Frequent falls Comparison: 08/13/2024 Technique: Unenhanced axial images skull base to vertex Coronal, sagittal reformats CT images acquired with automatic exposure control for dose reduction DLP: 605 mGy-cm Findings: Focal chronic encephalomalacia left occipital lobe. Chronic white matter microvascular ischemic changes. Basal ganglia lacunae. Sulci, ventricles: Unremarkable. No intracerebral hemorrhage. No evidence acute territorial infarct. No mass effect, midline shift. Bony calvarium intact. Visualized paranasal sinuses: Clear. Mastoid air cells: Clear. IMPRESSION: 1. No acute intracranial findings. Reviewed, dictated and finalized at location R. TECHNICAL SPECIALIST hip/pelvis x-ray: Radiologist's impression: Ordering Physician: Phillip Briggs MD Date of Service: 06/10/25 Procedure(s): XR hip LT 2V w AP pelvis Accession Number(s): [id number] cc: Los, Devyn Roberts MD; Ang Mcmahan MD; Phillip Briggs MD~ Examination: XR hip LT 2V w AP pelvis Clinical History: FALL Comparison: CT abdomen and pelvis 05/15/2025 Technique: 2 views left hip with AP pelvis Findings/impression: 1. No fracture or dislocation left pelvis. 2. No pelvic fracture identified. Reviewed, dictated and finalized at location R. TECHNICAL SPECIALIST Quality VTE Prophylaxis VTE prophylaxis: mechanical ordered Assessment and Plan Assessment and plan (1) Diverticulitis: Code(s): K57.92 - Diverticulitis of intestine, part unspecified, without perforation or abscess without bleeding Status: Acute Assessment and Plan: patient reports chronic diarrhea and an episode of diarrhea with a large amount of blood yesterday she was recently admitted for chronic diarrhea and started on cholestyramine BID s/p CT abdomen and pelvis with possible diverticulitis patient continued on IV ceftriaxone and IV Flagyl GI consulted NPO currently until cleared by GI AM labs (2) Left leg weakness: Code(s): R29.898 - Other symptoms and signs involving the musculoskeletal system Status: Acute Assessment and Plan: No focal deficits were noted s/p CT head without acute findings Neurology consulted MRI brain ordered PT/OT (3) Frequent falls: Code(s): R29.6 - Repeated falls Status: Acute Assessment and Plan: Patient reports two falls in the past week unclear which side the weakness has been on after discussion with patient s/p left hip/pelvis x-rays without acute fracture s/p head CT without acute findings patient reporting left shoulder pain order x-rays of left shoulder fall precautions PT/OT (4) Chronic diarrhea: Code(s): K52.9 - Noninfective gastroenteritis and colitis, unspecified Status: Acute Assessment and Plan: restart home cholestyramine GI consulted (5) History of stroke: Code(s): Z86.73 - Personal history of transient ischemic attack (TIA), and cerebral infarction without residual deficits Status: Acute Assessment and Plan: plan to restart home ASA and Plavix as long as H&H stays stable and blood in stool resolves (6) Gastroesophageal reflux: Qualifiers: Esophagitis presence: esophagitis presence not specified Qualified Code(s): K21.9 - Gastro-esophageal reflux disease without esophagitis Code(s): K21.9 - Gastro-esophageal reflux disease without esophagitis Status: Acute Assessment and Plan: continue PPI Prior Studies I have reviewed the following patient records and this information was taken into consideration when formulating the assessment and plan.: previous labs, previous ER visits and previous hospitalizations Consultations Consultations: I have discussed the care of this pt with the consulting providers.
--- NOTE | 2025-06-10 18:15 | WPDNEURCNPN ---
Assessment and Plan Assessment and plan (1) Frequent falls: Code(s): R29.6 - Repeated falls Status: Acute (2) Left leg weakness: Code(s): R29.898 - Other symptoms and signs involving the musculoskeletal system Status: Acute Assessment and Plan: although there is no clinical weakness of the left lower limb compared to the right side and the reflexes also did not show any asymmetry nor I found any sensory levels he pills while walking that the left leg does not want to walk as well as the right the leg does. This does raise possibility of central pathology. MRI of the brain and cervical spine are awaited. I reviewed the results of the lumbosacral spine and thoracic spine MRI. The lumbosacral spine shows moderate degenerative changes particularly at L2-3. (3) Fracture of T7 vertebra: Code(s): S22.069A - Unspecified fracture of T7-T8 vertebra, initial encounter for closed fracture Status: Acute (4) History of colon cancer: Code(s): Z85.038 - Personal history of other malignant neoplasm of large intestine Status: Acute (5) Diverticulosis: Code(s): K57.90 - Diverticulosis of intestine, part unspecified, without perforation or abscess without bleeding Status: Acute (6) History of colon resection: Code(s): Z90.49 - Acquired absence of other specified parts of digestive tract Status: Acute (7) Coronary artery disease: Qualifiers: Coronary Disease-Associated Artery/Lesion type: unspecified vessel or lesion type [place] vs. transplanted heart: [place] heart Associated angina: without angina Qualified Code(s): I25.10 - Atherosclerotic heart disease of [place] coronary artery without angina pectoris Code(s): I25.10 - Atherosclerotic heart disease of [place] coronary artery without angina pectoris Status: Chronic Plan Patient has a large bruise on the left hip area she has had a. There is a minimal fracture of the anterior superior endplate of T7 which could explain the pain in the back unless of course we find some other reason for it. She is having same GI bleed is being addressed by the veterinary practice manager. I spoke to hospitalist in charge and discuss the findings. Due to the renal failure cannot give her nonsteroidal anti-inflammatory. Tylenol and a does narcotics with the precaution if the blood pressure becomes an issue for symptomatic treatment. We shall review the results of MRI of the brain and cervical spine was the available. Consult date: 06/10/25 HPI: Hui Dominguez is a 74 year old female Presented to the hospital with having had a fall and she has large bruise on the left hip area. She feels that the left lower limb does not work for her as well as the right side does and she has been having some issue for the last week or so. There is history of GI bleed, urinary tract infection and renal failure and she was admitted in April for these issues. There is also history of cancer of the colon and coronary artery disease. She has had a head trauma in May 2024. The scan of brain performed at that time and after that in July did not show any significant abnormality. She is currently complaining of severe pain in the entire spine. The patient lives with the states that before all this problems was independent. She also has moderate tremor of both hands. patient states that she is having lower GI bleed. The patient has been now evaluated by veterinary practice manager. Patient was found to have diverticulosis on the colonoscopy done on 06/02/2025. She has been found to have a acute minimally or nondisplaced fracture involving anterosuperior endplates of T7. Noted trouble son. Other chronic findings were noted. MRI of the lumbosacral spine shows mild to moderate lumbar spondylosis mostly at L2-3. The results of MRI of the brain and cervical spine MRI have not been released yet. Patient also have decreased GFR. Review of Systems Review of Systems: Apart from the severe pain in the back and tendency to lose her balance and fall she denies any other pertinent symptoms. She states a week ago she was independent. However she has been hospitalized in recent past and some of the records were reviewed. [facility] Past Medical History Medical History (Updated 06/10/25 @ 18:27 by Neel Leiva MD) Fracture of T7 vertebra Gastroesophageal reflux Ventral hernia Cerebrovascular accident Irritable bowel syndrome with diarrhea Hyperlipidemia Hypertension Coronary artery disease Reported [place] in 1999. Colon cancer Surgical History Surgical History History of incisional hernia repair History of hysterectomy History of cholecystectomy History of appendectomy History of coronary artery stent placement History of colon resection Family History Family History Father Family history of heart disease in male family member before age 55 Cancer, bladder, neck Social History Social History Social History: Surrogate medical decision maker: Allan Dominguez, spouse. Code status: Full code. Smoking packs per day: 1 Smoking cigarettes per day: 20.0 Years smoked: 30 Smoking pack-years: 30.00 Smoking status: Former smoker Second hand tobacco smoke exposure: Yes Alcohol intake: never Substance use: never Substance use type: does not use Lack of Transportation: No Lack of Food: Never True Current Housing: I Have Housing Concerned About Future Housing: No Difficulty Paying Gas/Electric Bills: No Difficulty Paying for Meds: No Currently Unemployed: No Education: High School Diploma/GED Difficulty w/ Childcare or Family Care: No Living arrangements: with family Spiritual care concerns: No Agree to blood products: Yes Meds Home Medications and Allergies Home Medications ?Medication ?Instructions ?Recorded ?Confirmed ?Type furosemide 20 mg tablet (Lasix) 20 mg PO DAILY 07/13/19 06/10/25 History omeprazole 40 mg capsule,delayed 40 mg PO DAILY 07/13/19 06/10/25 History release allopurinol 300 mg tablet 300 mg PO DAILY 03/20/24 06/10/25 History coenzyme Q10 75 mg capsule (Ultra 75 mg PO DAILY 03/20/24 06/10/25 History CoQ10) cyclobenzaprine 10 mg tablet 10 mg PO HS 03/20/24 06/10/25 History melatonin 10 mg capsule 10 mg PO QHS 03/20/24 06/10/25 History potassium citrate 99 mg capsule 99 mg PO DAILY 03/20/24 06/10/25 History sour ruffin extract 1,000 mg 1,000 mg PO DAILY 03/20/24 06/10/25 History capsule (Tart Ruffin Extract) aspirin 81 mg tablet,delayed 81 mg PO HS 08/13/24 06/10/25 History release clopidogrel 75 mg tablet 75 mg PO HS 08/13/24 06/10/25 History metoprolol succinate 25 mg 12.5 mg PO HS 11/18/24 06/10/25 History tablet,extended release 24 hr cholestyramine 4 gram oral powder 4 g PO BID@1000,1800 #60 ea 05/17/25 06/10/25 Rx for suspension in a packet (Prevalite) Allergies Allergy/AdvReac Type Severity Reaction Status Date / Time fenofibrate Allergy Intermediate ITCHING, Verified 06/10/25 09:09 HIVES ciprofloxacin Allergy Unknown Unknown Verified 06/10/25 09:09 Penicillins Allergy Unknown Unknown Verified 06/10/25 09:09 Vital Signs Vital Signs - 24 hr 06/10/25 01:35 06/10/25 06:09 06/10/25 07:12 Temperature 98.5 F 98.5 F Pulse Rate 69 80 70 Respiratory Rate 20 17 15 Blood Pressure 127/69 126/73 124/75 Pulse Oximetry 95 95 94 Oxygen Delivery Room Air Oxygen Flow Rate 06/10/25 07:33 06/10/25 07:55 06/10/25 07:59 Temperature 98.4 F Pulse Rate 71 Respiratory Rate 18 Blood Pressure 102/62 Pulse Oximetry 92 91 92 Oxygen Delivery Nasal Cannula Nasal Cannula Oxygen Flow Rate 2 3 06/10/25 08:00 06/10/25 09:05 06/10/25 10:31 Temperature 97.6 F Pulse Rate 68 102 H Respiratory Rate 18 16 Blood Pressure 105/90 Pulse Oximetry 93 100 100 Oxygen Delivery Nasal Cannula Room Air Oxygen Flow Rate 4 06/10/25 12:04 06/10/25 16:00 Temperature Pulse Rate 96 87 Respiratory Rate Blood Pressure Pulse Oximetry Oxygen Delivery Oxygen Flow Rate Exam Narrative: Fully conscious alert oriented to self place and person. Patient feels better sitting on the edge of the bed than lying down. No aphasia or dysarthria. Examination head and neck shows no evidence of external head injuries. No nuchal rigidity. No carotid bruit. Heart sounds were normal. Respiration appears normal. Cranial nerves on individual testing showed no facial asymmetry. Tongue was midline. Visual nails by confrontation are normal. Other cranial normal limits motor system moving both upper and lower limbs. Large bruise noted on the left lower limb. I do not find any specific weakness in the left lower limb compared to the right side. Deep tendon reflexes are 1/4 without any asymmetry. No sensory level in the lower limbs or trunk. Tremor of the both hands were noted however no cogwheeling was noted. Results Labs 06/10/25 10:49 06/10/25 02:44 Labs: Short CBC 06/10/25 06/10/25 Range/Units 02:44 10:49 WBC 5.9 5.1 (4.5-10.0) K/mm3 Hgb 10.7 L 10.3 L (12.0-15.0) g/dL Hct 35.1 L 33.7 L (37.0-47.0) % Plt Count 239 D 277 (150-375) k/mm3 BMP 06/10/25 02:44 Sodium 139 Potassium 4.6 Chloride 114 H Carbon Dioxide 18 L BUN 29 H D Creatinine 1.54 H Glucose 99 Calcium 10.6 H Liver Function 06/10/25 Range/Units 02:44 Total Bilirubin 0.5 (0.2-1.3) mg/dL AST 39 H (14-36) U/L ALT 26 (6-35) U/L Alkaline Phosphatase 104 (38-126) U/L Albumin 3.8 (3.5-5.1) g/dL Urine 06/10/25 Range/Units 02:44 Urine Color Yellow (Yellow) Urine Appearance Clear (Clear) Urine pH 5.0 (5.0-9.0) Ur Specific [place] 1.014 (1.001-1.035) Urine Protein Trace (Negative) mg/dL Urine Glucose (UA) Negative (Negative) mg/dL
[2025-06-10] MEDS: PANTOPRAZOLE 40 MG TABLET PO (20:56)
[2025-06-10] MEDS: MELATONIN 5 MG TABLET 10 MG PO (20:57)
[2025-06-10] MEDS: METOPROLOL SUCCINATE EXT REL 12.5 MG TABCR PO (20:57)
[2025-06-11] VITALS (9 sets, daily range): BP systolic 92–136; BP diastolic 45–56; PULSE 82–110; RESP 16–18; TEMP 36.4–37.1; O2SAT 97–100
[2025-06-11 05:07] LABS: Hematocrit 27.5 % (37.0-47.0); Hemoglobin 8.5 g/dL (12.0-15.0); Immature Granulocyte Percent A 0.4 % (0-0.5); Lymphocytes Absolute Auto 0.77 K/mm3 (0.9-3.2); Mean Corpuscular HGB Conc 30.9 g/dl (32-36); Mean Corpuscular Hemoglobin 30.7 pg (26-34); Mean Corpuscular Volume 99.3 fl (80-100); Nucleated Red Blood Cells Absolute Auto 0.000 K/mm3 (0.0-0.012); Nucleated Red Blood Cells Perc 0.0 % (0.0-0.2); Platelet Count Result 217 k/mm3 (150-375); Red Blood Count 2.77 M/mm3 (4.2-5.4); White Blood Count 11.7 K/mm3 (4.5-10.0)
[2025-06-11 05:32] LABS: Alanine Aminotransferase 28 U/L (6-35); Albumin Level 2.9 g/dL (3.5-5.1); Alkaline Phosphatase 113 U/L (38-126); Anion Gap 4 mmol/L (4-12); Aspartate Amino Transferase 41 U/L (14-36); Bilirubin,Total 0.4 mg/dL (0.2-1.3); Blood Urea Nitrogen 28 mg/dL (7-17); Calcium 9.6 mg/dL (8.4-10.2); Carbon Dioxide 19 mmol/L (22-30); Chloride 113 mmol/L (98-107); Estimated CRCL calculation 26 ml/min; Estimated Glomerular Filt Rate 28; Glucose 92 mg/dL (65-110); Magnesium 1.7 mg/dL (1.6-2.3); Potassium 4.2 mmol/L (3.4-5.0); Sodium 136 mmol/L (137-145); Total Protein 5.4 g/dL (6.3-8.2)
[2025-06-11] MEDS: PANTOPRAZOLE 40 MG TABLET PO ×2 (09:26→20:30)
[2025-06-11] MEDS: LIDOCAINE 5% PATCH 2 PATCH TRANSDERM (09:27)
[2025-06-11] MEDS: CHOLESTYRAMINE LIGHT 4 GM POWD.PACK PO ×2 (09:27→17:09)
--- NOTE | 2025-06-11 09:28 | PCOTNOTE ---
Pt with T7 fracture. Hospitalist states to hold therapy for now as neurosurgery will likely be consulted. Will hold at this time and continue to follow.
--- NOTE | 2025-06-11 09:52 | PCPTNOTE ---
Pt with T7 fracture. Per OT: Hospitalist states to hold therapy for now as neurosurgery will likely be consulted. Will hold at this time and continue to follow.
--- NOTE | 2025-06-11 12:08 | PM.IMPN2 ---
Assessment and Plan Assessment and Plan (1) Fracture of T7 vertebra: Code(s): S22.069A - Unspecified fracture of T7-T8 vertebra, initial encounter for closed fracture Status: Acute Assessment and Plan: MRI thoracic spine - Acute minimally or nondisplaced fracture involving the anterosuperior endplate of T7. Middle and posterior columns appear intact with no retropulsion. I spoke with Dr. Littlejohn (Neurosurgery) and conservative treatment recommended. He will order a TLSO brace for her, she can wear it when out of bed. This is for comfort and pain control. Patient will need to follow up with neurosurgery 6-8 weeks after discharge. If patient is unable to stand and participate in rehab due to pain than the patient may need to be referred by neurosurgery to outpatient pain management for a kyphoplasty. pain control PT/OT Suspect patient is going to need SNF on discharge (2) Abnormal urinalysis: Code(s): R82.90 - Unspecified abnormal findings in urine Status: Acute Assessment and Plan: UA with 1+ leukocyte esterase, 11-20 WBC and 4+ bacteria urine culture pending patient's wbc count increased restart IV ceftriaxone IV fluids AM labs (3) Diverticulitis: Code(s): K57.92 - Diverticulitis of intestine, part unspecified, without perforation or abscess without bleeding Status: Acute Assessment and Plan: patient reports chronic diarrhea and an episode of diarrhea with a large amount of blood yesterday she was recently admitted for chronic diarrhea and started on cholestyramine BID s/p CT abdomen and pelvis with possible diverticulitis patient continued on IV ceftriaxone and IV Flagyl GI consulted IV abx stopped by GI, they felt she does not have acute diverticulitis and instead the diarrhea is chronic AM labs (4) Left leg weakness: Code(s): R29.898 - Other symptoms and signs involving the musculoskeletal system Status: Acute Assessment and Plan: No focal deficits were noted s/p CT head without acute findings Neurology consulted MRI brain - Advanced chronic microvascular ischemic appearing white matter changes. No acute ischemic event, mass or hemorrhage PT/OT (5) Frequent falls: Code(s): R29.6 - Repeated falls Status: Acute Assessment and Plan: Patient reports two falls in the past week unclear which side the weakness has been on after discussion with patient s/p left hip/pelvis x-rays without acute fracture s/p head CT without acute findings patient reporting left shoulder pain x-rays of left shoulder without acute fracture fall precautions PT/OT (6) Chronic diarrhea: Code(s): K52.9 - Noninfective gastroenteritis and colitis, unspecified Status: Acute Assessment and Plan: restart home cholestyramine GI consulted (7) History of stroke: Code(s): Z86.73 - Personal history of transient ischemic attack (TIA), and cerebral infarction without residual deficits Status: Acute Assessment and Plan: plan to restart home ASA and Plavix as long as H&H stays stable and blood in stool resolves (8) Gastroesophageal reflux: Qualifiers: Esophagitis presence: esophagitis presence not specified Qualified Code(s): K21.9 - Gastro-esophageal reflux disease without esophagitis Code(s): K21.9 - Gastro-esophageal reflux disease without esophagitis Status: Acute Assessment and Plan: continue PPI Medical Record Review I have reviewed the following patient records and this information was taken into consideration when formulating the assessment and plan.: previous labs, previous ER visits and previous hospitalizations Consultations Consultations: I have discussed the care of this pt with the consulting providers. Subjective Date/time seen: 06/11/25 12:08 Interval history: Patient seen for a follow up visit. Patient lying in bed, in no acute distress. Patient reports her pain is more controlled today, however she has not gotten out of bed. Patient had MRI's of her entire spine and brain. Patient with acute T7 fracture. Spoke with Dr. Littlejohn with neurosurgery who will order for a brace to be fit that the patient should wear when out of bed. The brace is not required, it is to help with pain control. Patient may continue PT/OT. Patient should follow up with neurosurgery as an outpatient in 6/[address] Littlejohn if the patient is not able to ambulate due to pain she will need to be scheduled with pain management for a kyphoplasty by their office. GI recommended to stop antibiotics as they do not believe she has diverticulitis. I will restart IV ceftriaxone as patient appears to have a UTI and her WBC count increased today. Review of Systems Review of Systems: All systems reviewed & are unremarkable except as noted in HPI and below Exam Const: General: comfortable and no acute distress HENMT: Face/Nose/Sinus: Normal nares present Mouth: Yes moist mucous membranes Eyes: General: appearance normal, both eyes and all related structures Sclera: sclerae normal Neck: Neck: supple Resp: Effort & Inspection: normal respiratory effort Auscultation: clear to auscultation bilaterally Cardio: Rate: regular rate Rhythm: regular rhythm GI: Auscultation: normal bowel sounds Skin: General skin exam: normal color and no rashes or lesions noted Neuro: Speech: normal speech Motor exam (neuro): 5/5 motor strength present throughout Sensory Exam: normal sensation Extrem: General: normal to inspection Psych: Mental Status: mental status grossly normal Affect: normal affect Objective Data Vital Signs Vital Signs: Vital Signs - 24 hr 06/10/25 16:00 06/10/25 20:00 06/10/25 20:57 Temperature Pulse Rate 87 110 H 110 H Respiratory Rate 16 Blood Pressure Pulse Oximetry 100 Oxygen Delivery Nasal Cannula Oxygen Flow Rate 2 06/10/25 22:00 06/11/25 00:00 06/11/25 04:00 Temperature 99.2 F Pulse Rate 110 H 110 H 93 Respiratory Rate 18 Blood Pressure 157/55 H Pulse Oximetry 97 Oxygen Delivery Oxygen Flow Rate 06/11/25 06:00 06/11/25 09:27 06/11/25 09:27 Temperature 98.8 F Pulse Rate 82 87 87 Respiratory Rate 18 18 Blood Pressure 96/55 L Pulse Oximetry 97 100 Oxygen Delivery Nasal Cannula Oxygen Flow Rate 1 Intake/Output Intake/Output: Intake & Output 06/08/25 06/09/25 06/10/25 06/11/25 23:59 23:59 23:59 23:59 Intake Total 1690 400 Balance 1690 400 Meds/Results Medications: Active Medications Generic Name Dose Route Start Last Admin Trade Name Freq PRN Reason Stop Dose Admin Acetaminophen 650 mg 06/10/25 06:26 06/10/25 10:37 Acetaminophen 325 Mg Tablet PO 650 mg Q4H PRN Administration Mild Pain (1-3) or Fever Allopurinol 300 mg 06/11/25 09:00 06/11/25 09:26 Allopurinol 300 Mg Tablet PO 300 mg DAILY MURRAY Administration Cholestyramine Resin 4 gm 06/10/25 18:00 06/11/25 09:27 Cholestyramine Light 4 Gm Powd.Pack PO 4 gm BID@1000,1800 MURRAY Administration Sodium Chloride 1,000 mls @ 100 mls/hr 06/10/25 10:40 06/10/25 10:47 Normal Saline Iv IV CONT 100 mls/hr .Q10H MURRAY Administration Lidocaine 2 patch 06/10/25 09:00 06/11/25 09:27 Lidocaine 5% Patch TRANSDERM 2 patch DAILY MURRAY Administration Melatonin 10 mg 06/10/25 21:00 06/10/25 20:57 Melatonin 5 Mg Tablet PO 10 mg QHS MURRAY Administration Metoprolol Succinate 12.5 mg 06/10/25 21:00 06/10/25 20:57 Metoprolol Succinate Ext Rel 12.5 Mg Tabcr PO 12.5 mg HS MURRAY Administration Ondansetron HCl 4 mg 06/10/25 06:26 06/10/25 09:01 Ondansetron Inj 4 Mg/2 Ml Vial IV PUSH 4 mg Q4H PRN Administration Nausea Pantoprazole Sodium 40 mg 06/10/25 21:00 06/11/25 09:26 Pantoprazole 40 Mg Tablet PO 40 mg Q12HR MURRAY Administration Radiology Results: ITS Impressions Head CT 06/10/25 07:23 IMPRESSION: 1. No acute intracranial findings. Abdomen/Pelvis CT 06/10/25 07:25 IMPRESSION: 1. Minimal sigmoid diverticulitis not excluded. 2. Otherwise no acute abnormality, with findings as above. Shoulder X-Ray 06/10/25 12:44 Impression: No acute fracture or malalignment. Thoracic Spine MRI 06/10/25 13:10 IMPRESSION: 1. Acute minimally or nondisplaced fracture involving the anterosuperior endplate of T7. Middle and posterior columns appear intact with no retropulsion. 2. Other chronic findings as above. Lumbar Spine MRI 06/10/25 13:55 IMPRESSION: 1. Mild to moderate lumbar spondylosis most notable at L2-L3 where there is moderate central canal and moderate bilateral neural foraminal stenosis. Labs Labs: Laboratory Results - last 24 hr 06/10/25 06/11/25 10:49 04:48 WBC 11.7 H RBC 2.77 L Hgb 8.5 L Hct 27.5 L MCV 99.3 MCH 30.7 MCHC 30.9 L RDW 14.7 H Plt Count 217 MPV 10.0 Immature Gran % (Auto) 0.4 Neut % (Auto) 83.1 H Lymph % (Auto) 6.6 L [place] % (Auto) 5.3 Eos % (Auto) 4.3 Baso % (Auto) 0.3 Lymph # (Auto) 0.77 L [place] # (Auto) 0.6 Eos # (Auto) 0.5 H Baso # (Auto) 0.0 Abs Immat Gran (auto) 0.05 H Absolute Neuts (auto) 9.7 H Absolute Nucleated RBC 0.000 Nucleated RBC % 0.0 Sodium 136 L Potassium 4.2 Chloride 113 H Carbon Dioxide 19 L Anion Gap 4 BUN 28 H Creatinine 1.78 H Estim Creat Clear Calc 26 Estimated GFR 28 L Glucose 92 Calcium 9.6 Magnesium 1.7 Total Bilirubin 0.4 AST 41 H ALT 28 Alkaline Phosphatase 113 Total Protein 5.4 L Albumin 2.9 L Blood Type B Positive Antibody Screen Negative Quality VTE Prophylaxis VTE prophylaxis: mechanical ordered
[2025-06-11] MEDS: ONDANSETRON INJ 4 MG/2 ML VIAL IV PUSH (12:18)
[2025-06-11] MEDS: SODIUM CHLORIDE 0.9% IV 1,000 ML 100 ML IV CONT (12:23)
[2025-06-11] MEDS: cefTRIAXone 2 GM in SODIUM CHLORIDE 0.9% IV 100 ML 200 ML IVPB (15:07)
[2025-06-11] MEDS: METOPROLOL SUCCINATE EXT REL 12.5 MG TABCR PO (20:29)
[2025-06-11] MEDS: ASPIRIN 81 MG ENTERIC TABLET PO (20:30)
[2025-06-11] MEDS: MELATONIN 5 MG TABLET 10 MG PO (20:30)
[2025-06-11] MEDS: CLOPIDOGREL BISULFATE 75 MG TABLET PO (20:30)
[2025-06-12] VITALS: PULSE 88
[2025-06-12] MEDS: SODIUM CHLORIDE 0.9% IV 1,000 ML 100 ML IV CONT (03:58)
[2025-06-12 04:00] VITALS: PULSE 80
[2025-06-12 05:39] LABS: Hematocrit 26.3 % (37.0-47.0); Hemoglobin 8.0 g/dL (12.0-15.0); Immature Granulocyte Percent A 0.4 % (0-0.5); Lymphocytes Absolute Auto 0.65 K/mm3 (0.9-3.2); Mean Corpuscular HGB Conc 30.4 g/dl (32-36); Mean Corpuscular Hemoglobin 30.7 pg (26-34); Mean Corpuscular Volume 100.8 fl (80-100); Nucleated Red Blood Cells Absolute Auto 0.000 K/mm3 (0.0-0.012); Nucleated Red Blood Cells Perc 0.0 % (0.0-0.2); Platelet Count Result 196 k/mm3 (150-375); Red Blood Count 2.61 M/mm3 (4.2-5.4); White Blood Count 7.4 K/mm3 (4.5-10.0)
[2025-06-12 05:56] VITALS: BP 96/51; PULSE 73; RESP 16; TEMP 36.4; O2SAT 96
[2025-06-12 06:13] LABS: Alanine Aminotransferase 21 U/L (6-35); Albumin Level 2.8 g/dL (3.5-5.1); Alkaline Phosphatase 98 U/L (38-126); Anion Gap 9 mmol/L (4-12); Aspartate Amino Transferase 26 U/L (14-36); Bilirubin,Total 0.4 mg/dL (0.2-1.3); Blood Urea Nitrogen 27 mg/dL (7-17); Calcium 9.5 mg/dL (8.4-10.2); Carbon Dioxide 13 mmol/L (22-30); Chloride 114 mmol/L (98-107); Estimated CRCL calculation 30 ml/min; Estimated Glomerular Filt Rate 34; Glucose 106 mg/dL (65-110); Magnesium 1.6 mg/dL (1.6-2.3); Potassium 3.7 mmol/L (3.4-5.0); Sodium 136 mmol/L (137-145); Total Protein 5.2 g/dL (6.3-8.2)
[2025-06-12 08:00] VITALS: PULSE 76
[2025-06-12] MEDS: PANTOPRAZOLE 40 MG TABLET PO (08:10)
[2025-06-12] MEDS: CHOLESTYRAMINE LIGHT 4 GM POWD.PACK PO (09:30)
[2025-06-12 12:00] VITALS: PULSE 77
[2025-06-12] MEDS: CEFDINIR 300 MG CAPSULE PO (12:16)
[2025-06-12 14:00] VITALS: BP 100/66; PULSE 75; RESP 16; TEMP 36.1; O2SAT 99
--- NOTE | 2025-06-12 14:15 | P.DS_ITS ---
DS: Admitting Diagnosis Discharge Date 06/12/2025 Admitting Diagnosis Fall/T7 fracture/UTI DS: Discharge Diagnosis Discharge Diagnosis (1) Fracture of T7 vertebra: Code(s): S22.069A - Unspecified fracture of T7-T8 vertebra, initial encounter for closed fracture Status: Acute (2) Abnormal urinalysis: Code(s): R82.90 - Unspecified abnormal findings in urine Status: Acute (3) Diverticulitis: Code(s): K57.92 - Diverticulitis of intestine, part unspecified, without perforation or abscess without bleeding Status: Acute (4) Left leg weakness: Code(s): R29.898 - Other symptoms and signs involving the musculoskeletal system Status: Acute (5) Frequent falls: Code(s): R29.6 - Repeated falls Status: Acute (6) Chronic diarrhea: Code(s): K52.9 - Noninfective gastroenteritis and colitis, unspecified Status: Acute (7) History of stroke: Code(s): Z86.73 - Personal history of transient ischemic attack (TIA), and cerebral infarction without residual deficits Status: Acute (8) Gastroesophageal reflux: Qualifiers: Esophagitis presence: esophagitis presence not specified Qualified Code(s): K21.9 - Gastro-esophageal reflux disease without esophagitis Code(s): K21.9 - Gastro-esophageal reflux disease without esophagitis Status: Acute DS: Summary Hospital Course Reason for hospitalization: Fall/T7 fracture/UTI Hospital Course: The patient presented with diarrhea, reported hematochezia, recurrent falls, back pain, and subjective left leg weakness. Initial CT abdomen/pelvis suggested possible minimal sigmoid diverticulitis; however, GI consultation felt diarrhea was chronic and antibiotics were discontinued. Colonoscopy earlier in the month showed diverticulosis. Neurology evaluated for falls and perceived left leg weakness. CT head was negative for acute findings. MRI brain showed advanced chronic microvascular ischemic changes without acute infarct. MRI thoracic spine revealed an?acute minimally or nondisplaced fracture of the anterosuperior endplate of T7, with intact middle and posterior columns and no retropulsion. Neurosurgery recommended?conservative management?with a TLSO brace for comfort. Pain improved with non-NSAID therapy due to renal dysfunction. PT/OT evaluated the patient, and discharge planning favored SNF placement due to limited mobility and fall risk. The hospital course was complicated by worsening anemia and acute kidney injury. UA was concerning for UTI, and IV ceftriaxone which was transitioned PO Cefdinir at discharge. Significant Diagnostic Studies * MRI Thoracic Spine:?Acute minimally displaced T7 fracture * MRI Brain:?Chronic microvascular ischemic changes; no acute stroke * CT Head:?No acute intracranial process * CT Abdomen/Pelvis:?Diverticulosis; no clear acute diverticulitis * X-rays (hip, pelvis, shoulder):?No acute fracture Time Spent with Patient Time attestation: Total time spent providing and/or coordinating discharge services: Time spent: Greater than 30 minutes Exam Const: General: comfortable and no acute distress HENMT: Face/Nose/Sinus: Normal nares present Mouth: Yes moist mucous membranes Eyes: General: appearance normal, both eyes and all related structures Sclera: sclerae normal Neck: Neck: supple Resp: Effort & Inspection: normal respiratory effort Auscultation: clear to auscultation bilaterally Cardio: Rate: regular rate Rhythm: regular rhythm GI: Auscultation: normal bowel sounds Skin: General skin exam: normal color and no rashes or lesions noted Neuro: Speech: normal speech Motor exam (neuro): 5/5 motor strength present throughout Sensory Exam: normal sensation Extrem: General: normal to inspection Psych: Mental Status: mental status grossly normal Affect: normal affect DS: Data Data Completed and Pending Labs on day of discharge: Labs from last 24 hours 06/12/25 05:01 WBC 7.4 RBC 2.61 L Hgb 8.0 L Hct 26.3 L MCV 100.8 H MCH 30.7 MCHC 30.4 L RDW 15.0 H Plt Count 196 MPV 10.4 Immature Gran % (Auto) 0.4 Neut % (Auto) 78.7 H Lymph % (Auto) 8.8 L [place] % (Auto) 4.5 Eos % (Auto) 7.5 H Baso % (Auto) 0.1 L Lymph # (Auto) 0.65 L [place] # (Auto) 0.3 Eos # (Auto) 0.6 H Baso # (Auto) 0.0 Abs Immat Gran (auto) 0.03 Absolute Neuts (auto) 5.8 Absolute Nucleated RBC 0.000 Nucleated RBC % 0.0 Sodium 136 L Potassium 3.7 Chloride 114 H Carbon Dioxide 13 L Anion Gap 9 BUN 27 H Creatinine 1.51 H Estim Creat Clear Calc 30 Estimated GFR 34 L Glucose 106 Calcium 9.5 Magnesium 1.6 Total Bilirubin 0.4 AST 26 ALT 21 Alkaline Phosphatase 98 Total Protein 5.2 L Albumin 2.8 L Preliminary micro results at discharge 06/10/25 02:44 - Preliminary Urine Clean Catch Gram negative bacilli isolated Discharge Plan Discharge Attending physician on discharge: Dylon Licona Consulting providers: Neel Leiva; Priyank Waddell; Radha Albarado; Mal Lopez; Gloria Dasilva; Christ Emanuel; Alvin Nicholas; Paul Schmidt; Robin Hua Discharging Clinician: Claudia Estes Anticipated Discharge Date/Time: 06/12/25 14:04 Patient Disposition: Home Activity: as tolerated and other - see discharge instructions Diet: heart healthy Discharge Instructions: 1). T7 fracture * Wear TLSO brace for support and pain relief with ambulation * Use walker for support and and aid in stability while ambulating * I have prescribed oral pain medication only take as needed, I encourage activity, hydration and bowel regiment prscribed to avoid consitpation from narcotic use * Please follow-up with Neurosurgery in 6-8 weeks to discuss possible kyphoplasty * Fall precaution at home, remove tripping hazards such as area rugs and so forth 2). UTI * I have prescribed oral antibiotic please take as indicated and complete even if feeling better How can you care for yourself at home? ? Keep track of any new symptoms or changes in your symptoms. ? Rest until you feel better. ? Be safe with medicines. Take your medicines exactly as prescribed. Call your doctor if you think you are having a problem with your medicine. ? Do not drive after taking a prescription pain medicine. ? Ensure to follow-up with primary care physician as indicated and provide updated medication list provided to you at discharge. When should you call for help? Call 911 anytime you think you may need emergency care. For example, call if: ? You passed out (lost consciousness). Call your doctor now or seek immediate medical care if: ? You have new symptoms like fever, difficulty breathing, Chest pain, vomiting, or rash. ? You have new or different pain. ? You are confused and are having trouble thinking clearly. ? Your symptoms are getting worse. Watch closely for changes in your health, and be sure to contact your doctor if: ? You do not get better as expected. Patient Instructions: Antibiotic Form, Aspirin (By mouth), Heart Failure (GEN), Thoracolumbar Fracture (DC), Kyphoplasty (DC) Patient Language: Arabic Stand Alone Forms: General Discharge Information Follow-up/Referrals: Lisandra,Devyn Roberts MD [Primary Care Provider, Unknown] - 3 Weeks Daniel Littlejohn MD [Physician, Neurosurgery] - 6 Weeks Referral Note: 6-8 weeks for possible kyphoplasty Discharge Medications: New lidocaine [Lidoderm] 5 % Adhesive Patch,Medicated 2 patch transdermal DAILY Qty: 30 0RF cefdinir 300 mg Capsule 300 mg PO Q12HR Qty: 5 0RF hydrocodone-acetaminophen 5-325 mg tablet 1 tablet PO Q8H PRN (Reason: pain) Qty: 20 0RF Continued allopurinol 300 mg tablet 300 mg PO DAILY melatonin 10 mg capsule 10 mg PO QHS cyclobenzaprine 10 mg tablet 10 mg PO HS potassium citrate 99 mg capsule 99 mg PO DAILY Tart Ruffin Extract 1,000 mg capsule 1,000 mg PO DAILY Ultra CoQ10 75 mg capsule 75 mg PO DAILY aspirin 81 mg tablet,delayed release (DR/EC) 81 mg PO HS clopidogrel 75 mg tablet 75 mg PO HS omeprazole 40 mg capsule,delayed release(DR/EC) 40 mg PO DAILY furosemide [Lasix] 20 mg tablet 20 mg PO DAILY metoprolol succinate 25 mg tablet extended release 24 hr 12.5 mg PO HS No Action Prevalite 4 gram powder in packet 4 g PO BID Qty: 60 2RF Other Ambulatory Orders: PT Outpatient Eval and Treat (ONCE) Timeframe: [id number] Location: Determined by Patient Ordered By: Claudia Estes Date of admission: 06/11/25 10:41 Primary Care Provider: LisandraDevyn Admitting Provider: Ang Mcmahan Attending physician on admission: Claudia Estes Condition: Stable Quality VTE Prophylaxis VTE prophylaxis: mechanical ordered - Patient's previous records reviewed on admission -ER notes reviewed in detail on admission -discussed all findings and current treatment plan with patient/Family/POA -Consultations reviewed for recommendations -Patient's disposition for safe discharge discussed with case management social worker -radiology imaging, EKG and test results I have personally reviewed and interpreted unless otherwise specified Dictation performed by [employer] direct speech recognition software, therefore cinema or theatre manager variants and typographical errors may occur. Hospitalist MIPS Heart Failure (Exclusion) Patient has history of Heart Transplant or Left Ventricular Assistive Device?: No IF YES, STOP HERE Heart Failure (Qualifier) Patient has current or prior documentation of LVEF less than or equal to 40%, or mod/servere depressed LVSF?: No IF NO, STOP HERE
== END 2025-06-12 14:30 | disposition home or self-care (01) | DRG 392 ==
LOC: ANHED 06:41 → ANH3MEDSUR 07:09 → ANH2MED 08:06
PROVIDERS: Nurse Practitioner Adult Health; Admitting Provider Internal Medicine; Emergency Provider Student in an Organized Health Care Education/Training Program; PCP Family Medicine; Visit Provider Nurse Practitioner Family
DX: K57.92 Diverticulitis of intestine, part unspecified, without perforation or abscess without bleeding (principal); S22.069A Unspecified fracture of T7-T8 vertebra, initial encounter for closed fracture; N39.0 Urinary tract infection, site not specified; E78.5 Hyperlipidemia, unspecified; I25.2 Old myocardial infarction; I25.10 Atherosclerotic heart disease of native coronary artery without angina pectoris; K52.9 Noninfective gastroenteritis and colitis, unspecified; K21.9 Gastro-esophageal reflux disease without esophagitis; R29.6 Repeated falls; S70.02XA Contusion of left hip, initial encounter; W19.XXXA Unspecified fall, initial encounter; Z79.82 Long term (current) use of aspirin; Z79.02 Long term (current) use of antithrombotics/antiplatelets; Z86.73 Personal history of transient ischemic attack (TIA), and cerebral infarction without residual deficits; Z85.038 Personal history of other malignant neoplasm of large intestine; Z90.49 Acquired absence of other specified parts of digestive tract; Z95.5 Presence of coronary angioplasty implant and graft
CPT/HCPCS: 36415; 70450; 70553; 72146; 72148; 72156; 73030; 73502; 74177; 80053; 81001; 83735; 85025; 85027; 85610; 85730; 86850; 86900; 86901; 87086; 87186; 93005; 96361; 96365; 96367; 96375; 97161; 97166; 99285; A9270; A9577; G0378; J0696; J1836; J2405; J7030; J7120; Q9967